=== PATIENT | female | born 1955 | race American Indian/Alaskan Native ===

== ENCOUNTER 2016-08-15 00:18 | Observation (INO) | payer MEDICARE, MEDICAID ==
[2016-08-15 00:26] VITALS: BMI 32.2
--- NOTE | 2016-08-15 00:34 | ED PDOC ---
Arrival/HPI - General Time Seen by Provider: 08/15/16 00:20 Historian: Patient - History of Present Illness Narrative History of Present Illness (Text): 08/15/16 00:33 Aviva Feliciano is a 61 year old female, whose past medical history includes COPD, left lower lobe lung cancer, recurrent SVT, paroxysmal atrial fibrillation , CAD with stent placement, CHF, seizures, and peripheral vascular disease, who presents to the Emergency department brought in by EMS for chest pain today. Patient also reports associated shortness of breath. Patient denies any fever, chills, nausea, vomiting, diarrhea, urinary symptoms, back pain, neck pain, headache, dizziness, or any other complaints. Time/Duration: Other (today) Symptom Onset: Gradual Symptom Course: Unchanged Activities at Onset: Rest, Light Context: Home Past Medical History - Provider Review Nursing Documentation Reviewed: Yes - Infectious Disease Hx of Infectious Diseases: None - Tetanus Immunization Tetanus Immunization: Unknown - Cardiac Hx Cardiac Disorders: Yes Hx Congestive Heart Failure: No Hx Hypertension: Yes - Pulmonary Hx Chronic Obstructive Pulmonary Disease (COPD): Yes - Neurological HX Cerebrovascular Accident: No - HEENT Hx HEENT Disorder: Yes (eyeglasses) Hx Blind: No Hx Cataracts: No Hx Deafness: Yes (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 ear) Hx Epistaxis: No Hx Glaucoma: No Hx Macular Degeneration: No Other/Comment: ringing in ears - Renal Hx Renal Failure: No - Endocrine/Metabolic Hx Diabetes Mellitus Type 1: No Hx Diabetes Mellitus Type 2: No Hx Hypothyroidism: No - Hematological/Oncological Hx Blood Transfusions: Yes Hx Blood Transfusion Reaction: No - Integumentary Hx Dermatological Disorder: No Hx Basal Cell Carcinoma: No Hx Eczema: No Hx Melanoma: No Hx Psoriasis: No Hx Squamous Cell Carcinoma: No - Musculoskeletal/Rheumatological Hx Arthritis: Yes - Gastrointestinal Hx Gastrointestinal Disorders: Yes (gastritis) Hx Colostomy: No Hx Crohn's Disease: No Hx Diverticulitis: No Hx Gall Bladder Disease: Yes Hx Gastroesophageal Reflux: Yes Hx Gastrointestinal Ulcer: No Hx Ileostomy: No Hx Liver Failure: No Hx Pancreatitis: Yes HX Swallowing Problems: No Other/Comment: colonoscopy 02/2016 dx diverticulosis, ascending colon ulceration , colon polyp - Genitourinary/Gynecological Hx Genitourinary Disorders: Yes (cervical,uterine ca) Hx Hematuria: No Hx Incontinence: No Hx Prostate Problems: No Hx Sexually Transmitted Diseases: No Hx Urinary Tract Infection: No Other/Comment: hx fibroids had hyst due to fibroids - Psychiatric Hx Psychophysiologic Disorder: Yes Hx Anxiety: Yes Hx Bipolar Disorder: No Hx Depression: No Hx Emotional Abuse: No Hx Hallucinations: No Hx Panic Disorder: No Hx Post Traumatic Stress Disorder: No Hx Psychosis: No Hx Physical Abuse: No Hx Schizophrenia: No Hx Sexual Abuse: No Hx Substance Use: No - Surgical History Hx Amputation: No Hx Appendectomy: No Hx Cardiac Catheterization: No Hx Cholecystectomy: Yes Hx Gastric Bypass Surgery: No Hx Hysterectomy: Yes Hx Joint Replacement: No Hx Kidney Transplant: No Hx Liver Transplant: No Hx Mastectomy: No Hx Musculoskeletal Surgery: No Hx Open Heart Surgery: No Hx Orthopedic Surgery: No Hx Splenectomy: No Hx Valve Replacement: No Other/Comment: polypectomy, r cw pac - Anesthesia Hx Anesthesia Reactions: No Hx Malignant Hyperthermia: No - Suicidal Assessment Feels Threatened In Home Enviroment: No Family/Social History - Physician Review Nursing Documentation Reviewed: Yes Family/Social History: No Known Family HX Smoking Status: Former Smoker Hx Alcohol Use: No Hx Substance Use: No Hx Substance Use Treatment: No Allergies/Home Meds Allergies/Adverse Reactions: Allergies diallo Allergy (Verified 08/15/16 00:27) RASH Home Medications: Home Meds Medication Instructions Recorded Confirmed Gabapentin 600 mg PO HS 06/22/15 07/09/16 Albuterol HFA [Ventolin HFA 90 0.09 mg IH PRN PRN 09/26/15 07/09/16 mcg/actuation (8 g)] Review of Systems - Physician Review All systems were reviewed & negative as marked: Yes - Review of Systems Constitutional: Normal. absent: Fevers Eyes: Normal ENT: Normal Respiratory: SOB Cardiovascular: Chest Pain Gastrointestinal: Normal. absent: Abdominal Pain, Diarrhea, Nausea, Vomiting Genitourinary Female: Normal. absent: Dysuria, Frequency, Hematuria, Urine Output Changes Musculoskeletal: Normal. absent: Back Pain, Neck Pain Skin: Normal. absent: Rash Neurological: Normal. absent: Headache, Dizziness Endocrine: Normal Hemo/Lymphatic: Normal Psychiatric: Normal Physical Exam Vital Signs Reviewed: Yes Vital Signs Pulse Resp BP Pulse Ox 08/15/16 04:55 117 H 18 133/85 90 L 08/15/16 04:39 133/85 08/15/16 00:39 93 H 22 114/76 92 L Temperature: Afebrile Blood Pressure: Normal Pulse: Regular Respiratory Rate: Normal Appearance: Positive for: Well-Appearing, Non-Toxic, Comfortable Pain Distress: None Mental Status: Positive for: Alert and Oriented X 3 - Systems Exam Head: Present: Atraumatic, Normocephalic Pupils: Present: PERRL Extroacular Muscles: Present: EOMI Conjunctiva: Present: Normal Mouth: Present: Moist Mucous Membranes Neck: Present: Normal Range of Motion Respiratory/Chest: Present: Decreased Breath Sounds (Left-sided decreased breath sounds). No: Respiratory Distress, Accessory Muscle Use Cardiovascular: Present: Regular Rate and Rhythm, Normal S1, S2. No: Murmurs Abdomen: Present: Normal Bowel Sounds. No: Tenderness, Distention, Peritoneal Signs Back: Present: Normal Inspection Upper Extremity: Present: Normal Inspection. No: Cyanosis, Edema Lower Extremity: Present: Normal Inspection. No: Edema Neurological: Present: GCS=15, CN II-XII Intact, Speech Normal Skin: Present: Warm, Dry, Normal Color. No: Rashes Psychiatric: Present: Alert, Oriented x 3, Normal Insight, Normal Concentration Medical Decision Making ED Course and Treatment: 08/15/16 00:33 Impression: 61 year old female complaining of chest pain and shortness of breath tonight. Differential Diagnosis include but are not limited to: ACS vs. CHF vs. COPD vs. pneumonia vs. sepsis Plan: -- EKG -- Chest X-ray -- Labs, cardiac enzymes, BNP, VBG, blood cultures -- Dilaudid -- Reassess and disposition Prior Visits: Notes and results from previous visits were reviewed. On 07/09/2016, pt was seen in the Emergency department for shortness of breath. Pt was admitted to the hospital for further evaluation. Progress Notes: Reviewed EKG, NSR at [address] bpm[address] Non-specific ST/T wave changes. Prolonged QT. 08/15/16 01:27 Reviewed radiology, Chest X-ray shows no infiltrates, no pneumonia. 08/15/16 03:[address] Longoria, covering for Dr. Singh, who is aware and agrees with plan. Pt will go to Telemetry observation for chest pain under Dr. Singh's service. Pt is no acute distress. Discussed results and hospital observation plan with pt , who is aware and verbalizes understanding. - Lab Interpretations Microbiology Results: Microbiology Results 08/15/16 01:40 Blood-Venous Blood Culture - Preliminary NO GROWTH AFTER 48 HOURS 08/15/16 01:20 Blood-Venous Blood Culture - Preliminary NO GROWTH AFTER 48 HOURS Lab Results: 08/15/16 01:20 08/15/16 02:20 Lab Results 08/15/16 02:20: Sodium 137, Potassium 4.1, Chloride 96 L, Carbon Dioxide 33, Anion Gap 12, BUN 20, Creatinine 1.1, Est GFR ( Amer) > 60, Est GFR (Non- Af Amer) 50, Random Glucose 114 H, Calcium 9.4, Total Bilirubin 0.8, AST 21, ALT 15, Alkaline Phosphatase 136 H, Lactate Dehydrogenase 549, Total Creatine Kinase 51, Troponin I < 0.01 D, NT-Pro-B Natriuret Pep 1170 H, Total Protein 7.8, Albumin 4.0, Globulin 3.8, Albumin/Globulin Ratio 1.1 08/15/16 01:20: WBC 5.4 D, RBC 3.95, Hgb 12.5, Hct 36.7, MCV 92.9, MCH 31.6, MCHC 34.1, RDW 13.9, Plt Count 279, MPV 9.8, Gran % 67.4, Lymph % (Auto) 20.7 L , [place] % (Auto) 10.2 H, Eos % (Auto) 1.3 L, Baso % (Auto) 0.4, Gran # 3.62, Lymph # 1.1 L, [place] # 0.6, Eos # 0.1, Baso # 0.02, PT 11.7, INR 1.08, APTT 28.7 , pO2 38, VBG pH 7.34, VBG pCO2 59.0, VBG HCO3 31.8 H, VBG Total CO2 33.6 H, VBG O2 Sat (Calc) 70.6 H, VBG Base Excess 4.3 H, VBG Potassium 8.0 H*, Glucose 104, Lactate 2.3 H, FiO2 21.0, Sodium 135.0, Chloride 104.0, Venous Blood Potassium 8.0 H* I have reviewed the lab results: Yes - RAD Interpretation Radiology Orders: 08/15/16 00:35 CHEST PORTABLE [RAD] Stat Battery Starter: ED Physician - EKG Interpretation Interpreted by ED Physician: Yes Type: 12 lead EKG - Medication Orders Current Medication Orders: Acetaminophen (Tylenol 325mg Tab) 650 mg PO Q4H PRN PRN Reason: Fever >100.5 F Last Admin: 08/17/16 09:58 Dose: 650 MG MAR Pain/Vitals Document 08/17/16 09:58 MICEM (Rec: 08/17/16 09:58 [id number]) Presence of Pain Presence of Pain Yes Pain Scale Used Pain Scale Used Numeric Location Pain Location Body Site Chest Description Intermittent Intensity 3 Re-Assess: MAR Pain/Vitals Document 08/17/16 10:58 MICEM (Rec: 08/17/16 11:27 [id number]) Pain Reassessment Is This A Pain ReAssessment? Yes Presence of Pain Presence of Pain No Albuterol Sulfate (Albuterol 0.083% Inhal Zulay (2.5 Mg/3 Ml) Ud) 2.5 mg IH [id number] PRN PRN Reason: Shortness of Breath Last Admin: 08/16/16 13:16 Dose: 2.5 MG Amiodarone HCl (Cordarone) 200 mg PO DAILY [facility] Last Admin: 08/17/16 15:26 Dose: 200 MG [facility] Pulse and Blood Pressure Document 08/17/16 15:26 MICE (Rec: 08/17/16 15:26 [id number] Pulse Pulse Rate (60-90) 83 Blood Pressure Blood Pressure (100/60-150/90) 105/71 Arformoterol Tartrate (Brovana) 15 mcg IH [id number] [facility] Last Admin: 08/17/16 07:42 Dose: 15 MCG Aspirin (Ecotrin) 81 mg PO DAILY [facility] Last Admin: 08/17/16 09:57 Dose: 81 MG Atenolol (Tenormin) 25 mg PO BID [facility] Last Admin: 08/17/16 17:37 Dose: Not Given Non-Admin Reason: BP Parameters Not Met [facility] Pulse and Blood Pressure Document 08/17/16 17:37 MICEM (Rec: 08/17/16 17:37 [email or web address] Pulse Pulse Rate (60-90) 95 Blood Pressure Blood Pressure (100/60-150/90) 95/63 Azithromycin (Zithromax) 500 mg PO DAILY [facility] PRN Reason: Protocol Last Admin: 08/17/16 09:58 Dose: 500 MG Clopidogrel Bisulfate (Plavix) 75 mg PO DAILY [facility] Last Admin: 08/17/16 09:58 Dose: 75 MG Enoxaparin Sodium (Lovenox) 40 mg SC DAILY [facility] PRN Reason: Protocol Last Admin: 08/17/16 09:57 Dose: 40 MG Protocol for PTT Monitoring Document 08/17/16 09:57 MICE (Rec: 08/17/16 09:58 [id number]) Protocol Protocol for PTT Monitoring Following clinical pathway protocol (regime/therapy) Subcutaneous Administrations Document 08/17/16 09:57 MICE (Rec: 08/17/16 09:58 [id number]) Injection Site MAR Injection Site Right Abdomen Charges for Administration # of Subcutaneous Administrations 1 Famotidine (Pepcid) 20 mg PO 1000,2200 [facility] Last Admin: 08/17/16 09:58 Dose: 20 MG Furosemide (Lasix) 20 mg PO BID [facility] Last Admin: 08/17/16 17:36 Dose: Not Given Non-Admin Reason: BP Parameters Not Met MAR Blood Pressure Document 08/17/16 17:36 MICE (Rec: 08/17/16 17:36 [id number]) Blood Pressure Blood Pressure (100/60-150/90) 95/63 Guaifenesin (Robitussin) 200 mg PO Q6 PRN PRN Reason: Cough and congestion Last Admin: 08/17/16 06:49 Dose: 200 MG Ceftriaxone Sodium (Rocephin 1 Gram Ivpb) 100 mls @ 100 mls/hr IVPB DAILY [facility] PRN Reason: Protocol Last Admin: 08/17/16 09:58 Dose: 100 MLS/HR eMAR Start Stop Document 08/17/16 09:58 MICE (Rec: 08/17/16 09:58 [id number]) Intravenous Solution Start Date 08/17/16 Start Time 09:58 Levetiracetam (Keppra) 500 mg PO BID [facility] Last Admin: 08/17/16 17:35 Dose: 500 MG Methylprednisolone (Solu-Medrol) 40 mg IVP Q12 [facility] Last Admin: 08/17/16 09:58 Dose: 40 MG IVP Administration Document 08/17/16 09:58 MICE (Rec: 08/17/16 09:58 [id number] Charges for Administration # of IVP Administrations 1 Montelukast Sodium (Singulair) 10 mg PO HS [facility] Last Admin: 08/16/16 21:13 Dose: 10 MG Morphine Sulfate (Morphine) 2 mg IVP Q4H PRN PRN Reason: Pain, moderate (4-7) Last Admin: 08/16/16 08:39 Dose: 2 MG [facility] Pain Assessment Document 08/16/16 08:39 JFR (Rec: 08/16/16 08:40 [id number]) Pain Reassessment Is this a pain reassessment? No Sleep Is patient sleeping during reassessment? No Presence of Pain Presence of Pain Yes Pain Scale Used Pain Scale Used Numeric Location Left, Right or Bilateral Left Description Intensity of Pain at present 7 IVP Administration Document 08/16/16 08:39 JFR (Rec: 08/16/16 08:40 [id number]) Charges for Administration # of IVP Administrations 1 Re-Assess: [facility] Pain Assessment Document 08/16/16 09:39 JFR (Rec: 08/16/16 09:55 [id number]) Pain Reassessment Is this a pain reassessment? Yes Sleep Is patient sleeping during reassessment? No Presence of Pain Presence of Pain No Phenytoin Sodium (Dilantin) 100 mg PO BRK [facility] Last Admin: 08/17/16 08:01 Dose: 100 MG Phenytoin Sodium (Dilantin) 200 mg PO [facility] Last Admin: 08/16/16 21:13 Dose: 200 MG Pregabalin (Lyrica) 25 mg PO BID [facility] Last Admin: 08/17/16 17:36 Dose: 25 MG Roflumilast (Daliresp) 500 mcg PO DAILY [facility] Last Admin: 08/17/16 09:57 Dose: 500 MCG Sildenafil Citrate (Revatio) 20 mg PO Q12 [facility] Last Admin: 08/17/16 11:27 Dose: Not Given Non-Admin Reason: BP Parameters Not Met Discontinued Medications Acetaminophen (Tylenol 325mg Tab) 650 mg PO Q4H PRN PRN Reason: Fever >100.5 F Atenolol (Tenormin) 25 mg PO BID [facility] Last Admin: 08/17/16 11:27 Dose: Not Given Non-Admin Reason: BP Parameters Not Met MAR Pulse and Blood Pressure Document 08/17/16 11:27 MICE (Rec: 08/17/16 11:27 [id number]) Pulse Pulse Rate (60-90) 84 Blood Pressure Blood Pressure (100/60-150/90) 92/61 Diltiazem HCl (Cardizem Cd) 120 mg PO DAILY [facility] Last Admin: 08/15/16 09:24 Dose: 120 MG MAR Pulse and Blood Pressure Document 08/15/16 09:24 [facility] (Rec: 08/15/16 09:25 [facility] [id number]) Pulse Pulse Rate (60-90) 108 Blood Pressure Blood Pressure (100/60-150/90) 113/84 Enoxaparin Sodium (Lovenox) 80 mg SC STAT STA PRN Reason: Protocol Stop: 08/15/16 04:04 Last Admin: 08/15/16 04:39 Dose: 80 MG Subcutaneous Administrations Document 08/15/16 04:39 EKEOO (Rec: 08/15/16 04:39 EKEOO [id number]) Injection Site MAR Injection Site Left Abdomen Charges for Administration # of Subcutaneous Administrations 1 Furosemide (Lasix) 20 mg IVP ONCE ONE Stop: 08/15/16 03:36 Last Admin: 08/15/16 04:39 Dose: 20 MG MAR Blood Pressure Document 08/15/16 04:39 EKEOO (Rec: 08/15/16 04:39 EKEOO [id number]) Blood Pressure Blood Pressure (100/60-150/90) 133/85 IVP Administration Document 08/15/16 04:39 EKEOO (Rec: 08/15/16 04:39 EKEOO [id number] ATTEND) Charges for Administration # of IVP Administrations 1 Furosemide (Lasix) 20 mg PO BID [facility] Last Admin: 08/17/16 11:27 Dose: Not Given Non-Admin Reason: BP Parameters Not Met MAR Blood Pressure Document 08/17/16 11:27 MICE (Rec: 08/17/16 11:27 [id number]) Blood Pressure Blood Pressure (100/60-150/90) 92/61 Guaifenesin (Robitussin) 200 mg PO Q6 [facility] Last Admin: 08/16/16 12:50 Dose: 200 MG Hydromorphone HCl (Dilaudid) 2 mg IVP STAT STA Stop: 08/15/16 00:36 Last Admin: 08/15/16 01:26 Dose: 2 MG IVP Administration Document 08/15/16 01:26 EKEOO (Rec: 08/15/16 01:27 EKEOO [id number]) Charges for Administration # of IVP Administrations 1 Hydromorphone HCl (Dilaudid) 2 mg IVP STAT STA Stop: 08/15/16 04:03 Last Admin: 08/15/16 04:40 Dose: IVP Administration Document 08/15/16 04:40 EKEOO (Rec: 08/15/16 04:40 EKEOO [id number] ATTEND) Charges for Administration # of IVP Administrations 1 Methylprednisolone (Solu-Medrol) 30 mg IVP Q12 [facility] Last Admin: 08/15/16 09:20 Dose: 30 MG IVP Administration Document 08/15/16 09:20 [facility] (Rec: 08/15/16 09:20 [facility] [id number]) Charges for Administration # of IVP Administrations 1 Methylprednisolone (Solu-Medrol) 40 mg IVP Q8 [facility] Last Admin: 08/16/16 15:02 Dose: 40 MG IVP Administration Document 08/16/16 15:02 MICEM (Rec: 08/16/16 15:02 MICEM [id number]) Charges for Administration # of IVP Administrations 1 Sildenafil Citrate (Revatio) 20 mg PO TID [facility] Last Admin: 08/15/16 17:48 Dose: 20 MG - Juan Pabloibe Statement The provider has reviewed the documentation as recorded by the Herrera Chicas Provider Attestation: All medical record entries made by the Herrera were at my direction and personally dictated by me. I have reviewed the chart and agree that the record accurately reflects my personal performance of the history, physical exam, medical decision making, and the department course for this patient. I have also personally directed, reviewed, and agree with the discharge instructions and disposition. Disposition/Present on Arrival - Present on Arrival Any Indicators Present on Arrival: No History of DVT/PE: No History of Uncontrolled Diabetes: No Urinary Catheter: No History Surgical Site Infection Following: None - Disposition Have Diagnosis and Disposition been Completed?: Yes Diagnosis: COPD (chronic obstructive pulmonary disease), Chest pain in adult Disposition: HOSPITALIZED Disposition Time: 03:30 Patient Problems: Current Active Problems Problem Status Diagnosed Congestive heart failure (CHF) Acute Anemia Chronic Anemia in chronic illness Chronic Chronic obstructive airway disease with asthma Chronic Dyspnea Chronic Hyperlipidemia Chronic Lung cancer Chronic Paroxysmal atrial fibrillation Chronic Seizure Chronic Abdominal pain Resolved Altered mental status Resolved Atrial fibrillation Resolved Atrial flutter Resolved Chest pain Resolved Dehydration Resolved Hemoptysis Resolved Nausea & vomiting Resolved SVT (supraventricular tachycardia) Resolved COPD exacerbation Ruled-out Condition: GOOD
[2016-08-15] MEDS ORDERED: HYDROmorphone 2 mg/ml ISec IVP STA ×2 (00:35→04:02)
[2016-08-15 01:41] LABS: ADD MANUAL DIFF? NO
[2016-08-15 01:47] LABS: BASO # 0.02 K/mm3 (0.0-2.0); BASO % 0.4 % (0.0-3.0); EOS # 0.1 (0.0-0.7); EOS % 1.3 % (1.5-5.0); GRAN # 3.62 (1.4-6.5); GRAN % 67.4 % (50.0-68.0); HEMATOCRIT 36.7 % (36.0-48.0); LYMPH # 1.1 (1.2-3.4); LYMPH % 20.7 % (22.0-35.0); MEAN CELL VOLUME 92.9 fL (80.0-105.0); MEAN CORPUSCULAR HEMOGLOBIN 31.6 pg (25.0-35.0); MEAN CORPUSCULAR HGB CONC 34.1 g/dl (31.0-37.0); MEAN PLATELET VOLUME 9.8 fl (7.0-11.0); MONO # 0.6 (0.1-0.6); MONO % 10.2 % (1.0-6.0); PLATELET COUNT 279 10^3/uL (120.0-450.0); RED CELL DISTRIBUTION WIDTH 13.9 % (11.5-14.5); WHITE BLOOD COUNT 5.4 10^3/ul (4.5-11.0)
[2016-08-15 01:51] LABS: VENOUS BLOOD GAS BASE EXCESS 4.3 mmol/L (0.0-2.0); VENOUS BLOOD PH 7.34 (7.32-7.43)
[2016-08-15 01:58] LABS: INR 1.08 (0.93-1.08); PARTIAL THROMBOPLASTIN TIME 28.7 Seconds (23.7-30.8)
[2016-08-15 02:43] LABS: ALB/GLOB RATIO 1.1 (1.1-1.8); ALKALINE PHOSPHATASE 136 U/L (38-133); ALT/SGPT 15 U/L (7-56); AST/SGOT 21 U/L (15-39); BILIRUBIN,TOTAL 0.8 mg/dL (0.2-1.3); BLOOD UREA NITROGEN 20 mg/dL (7-21); CALCIUM 9.4 mg/dL (8.4-10.5); CARBON DIOXIDE 33 mmol/L (21-33); CHLORIDE 96 mmol/L (98-107); GFR AFRICAN-AMERICAN > 60; GLUCOSE,RANDOM 114 mg/dL (70-110); POTASSIUM 4.1 mmol/L (3.6-5.0); SODIUM 137 mmol/L (132-148); TOTAL PROTEIN 7.8 g/dL (5.8-8.3)
[2016-08-15 02:56] LABS: TROPONIN I < 0.01 ng/mL
[2016-08-15] MEDS ORDERED: Enoxaparin 80 mg Syringe SC STA (04:03)
[2016-08-15] MEDS ORDERED: Albuterol HFA 90 mcg/actuation (8 g) IH PRN (05:53)
[2016-08-15 07:57] LABS: VENOUS BLOOD GAS BASE EXCESS 6.3 mmol/L (0.0-2.0); VENOUS BLOOD PH 7.38 (7.32-7.43)
[2016-08-15] MEDS: Morphine 2 mg/ml ISec IVP PRN ×2 (08:21→23:50)
[2016-08-15 08:34] LABS: TROPONIN I 0.03 ng/mL
--- NOTE | 2016-08-15 09:18 | HP ---
This is an unfortunate 61-year-old female, seen in the Emergency Room and admitted f or the fourth time this year for similar complaints of chest pain. She has unresectable left lower l obe cancer, adenocarcinoma that was diagnosed in 01/2016. The patient suffers from recurrent paroxysm al atrial fibrillation, recently underwent metal stent placement last month, and has other comorbidit ies that frequently make her visit the Emergency Room. Today, brought in by the emergency medical service, and coexistent shortness of breath. She is on O2 via nasal cannula and has not visited our office since her discharge in July. She is co-managed by Dr. Gomez for her cancer, Dr. Martinez for her respiratory needs, and Dr. Maguire for her extensive cardiac history. The Emergency Room physician reviewed the ongoing history and suggested observation, as this could be a Abundio's syndrome post the insertion of the stent, but because of the florid comorbidities, any visit to the Emergency Room triggers admission. From our understanding, the physical exam showed a c omfortable, nontoxic patient in no obvious pain distress, and the admission triggered by the comorbid ities. The recent recommendations from the consultants at the time of discharge were reviewed by me, and bec jennifere she has not visited our office, we are uncertain of her compliance or any adjustments made by [facility] consultants. MEDICATIONS: Her current medications, as last seen in our office, are atenolol, Eliquis, vitamin D, amiodarone, Dilantin, gabapentin, Singulair, Spiriva, atorvastatin, Brovana, omeprazole, Voltaren gel , ibuprofen, and Keppra. Ventolin and Asmanex had been also in use. In reviewing her discharge medi cines, I am not certain if that is the same as she is on. We will need to confer with Dr. Samantha judge on in the morning. The presenting complaints as noted by the Emergency Room physician was severity of illness enough to warrant EMS transport with comorbid COPD - asthma combined, pulmonary hypertension, ASHD with recent cardiac catheterization and placement of metal stent, comorbid epilepsy, GERD, hyperlipidemia, essent ial hypertension, chronic rhinitis, sleep apnea with pulmonary hypertension, vitamin D deficiency, an d prior nicotine dependence. She has had bouts of SVT and atrial fibrillation, and prior to her diag nosis of adenocarcinoma of the lung, she was admitted for hemoptysis. The patient again was stabilized in the Emergency Room. Cardiac enzymes were reported as negative, a nd the physical exam will be reviewed once the patient is seen. We have initiated her standard medic ations, and will ask for consult with Dr. Maguire and perhaps Dr. Martinez if warranted. Kit Longoria MD cc: [phone] TT: 08/15/2016 09:17:37 jn
[2016-08-15] MEDS: cefTRIAXone 1 gm 100 ML IVPB SCH (09:21)
[2016-08-15] MEDS: Sildenafil 20 MG TAB PO SCH ×3 (09:25→17:48)
--- NOTE | 2016-08-15 09:32 | RAD ---
HISTORY: sob COMPARISON: Comparison is made to the previous study dated 07/13/2016 FINDINGS: LUNGS: Suspicious for [id number] pulmonary vascular congestion. Hazy opacity seen at the lower lobes could be due to atelectasis. PLEURA: Blunting of the left costophrenic angle is again noted. CARDIOVASCULAR: The cardiac silhouette is prominent in size. OSSEOUS STRUCTURES: No significant abnormalities. VISUALIZED UPPER ABDOMEN: Normal. OTHER FINDINGS: Right-sided jugular central line seen in place. IMPRESSION: Interval appearance of reticular opacities in the lungs suspicious for pulmonary vascular congestion. Bibasilar linear opacities may represent atelectasis.
[2016-08-15] MEDS: Arformoterol 15 mcg/2 ml Inh Sol IH SCH ×2 (09:34→19:30)
[2016-08-15] MEDS ORDERED: diltiaZEM 120 mg/24 Hours CD Cap PO SCH (10:00)
[2016-08-15] MEDS ORDERED: MethylPREDNISolone 40 mg Vial IVP SCH (10:00)
--- NOTE | 2016-08-15 10:09 | CARD ---
APPROVED REPORT EKG Measurement Heart [id number] <Conclusion> Normal sinus rhythm Possible Left atrial enlargement NSSTW changes Prolonged QTc No change
--- NOTE | 2016-08-15 10:59 | CT ---
PROCEDURE: CT Chest without contrast HISTORY: left lateral , inspiratory chest pain COMPARISON: Comparison is made to the previous study dated 06/28/2016. TECHNIQUE: Contiguous axial images were obtained through the chest without intravenous contrast enhancement. Sagittal and coronal reconstructions were performed. Radiation dose (DLP): 517.95 mGy-cm. FINDINGS: LUNGS: Severe diffuse emphysematous changes are again seen predominant in the upper lobes. Again seen is 5 millimeter nodule at the right lung upper lobe image 31 series 4. Small opacity seen at lung bases may represent atelectasis. The possibility of pneumonia and infiltrate is not totally excluded especially on the right. Otherwise no significant interval change. MEDIASTINUM: The thoracic aorta is tortuous and ectatic. The heart is moderately enlarged. Main pulmonary artery is mildly to moderately enlarged suggestive of underlying pulmonary hypertension. The main pulmonary artery measures 4.1 centimeter. Stable mild mediastinal lymphadenopathy. PLEURA: No evidence of significant pleural effusion or pneumothorax. BONES: Suspicious for diffuse osteopenia. Moderate degenerative changes in the thoracic spine. UPPER ABDOMEN: Distended stomach is noted. There are foci of slightly low-attenuation lesions in the left and right liver lobe. Correlate clinically for possible metastasis or other etiology. Adrenal glands are mildly enlarged. OTHER FINDINGS: None. IMPRESSION: Bibasilar opacities may represent atelectasis or pleural thickening or infiltrates. The possibility of neoplasm is not totally excluded. No evidence of significant pleural effusion or pneumothorax. 5 millimeter noncalcified nodule at the right lung upper lobe. Severe emphysema. Cardiomegaly. [id number] enlarged main pulmonary artery. At least 2 slightly low-attenuation mass lesions in the liver. Dedicated CT of the liver with contrast is suggested for further assessment. If clinically warranted follow-up PET-CT is suggested.
[2016-08-15 14:03] LABS: TROPONIN I 0.02 ng/mL
--- NOTE | 2016-08-15 15:59 | CON ---
DATE: 08/15/2016 REASON FOR CONSULTATION: Chest pain, left sided, sharp, history of coronary artery disease status post recently bare metal stent in RCA. BRIEF CLINICAL HISTORY: This is a 61-year-old female with past medical history of COPD on home oxygen, SVT, paroxysmal atrial fibrillation, left lower lobe inoperable adenocarcinoma status post radiation, status post chemo, pulmonary hypertension, history of PAD, history of CAD status post recent bare metal stent was placed on 07/15/2016 in the right coronary artery, came in with a complaint of sharp lower chest pain which is atypical. PAST MEDICAL HISTORY: Significant for as mentioned, adenocarcinoma, diagnosed 01/2016, status post chemo, status post radiation, inoperable, history of COPD, history of obstructive sleep apnea, history of paroxysmal atrial fibrillation, history of SVT and pulmonary hypertension. RV systolic pressure on the last echo 12/25/2014 80 mmHg. RECENT CARDIAC WORKUP: As follows: The patient had echocardiography 2016 shows ejection fraction 65-70% on Primacor, dilated RA, RV, LA. Right ventricle severely dilated with systolic function of RV severely reduced, mitral regurg is severe, severe tricuspid regurg, RV systolic pressure 123 with severe pulmonary hypertension dated 07/11/2016. Following this, the patient underwent left and right heart catheterization dated 07/15/2016 that revealed normal LV function ejection fraction of 55%. Left main essentially free of significant disease, bifurcating LAD, circumflex. LAD without any significant disease. Circumflex with diffuse calcification noted toward the vessels of 30- 40%, in the distal circumflex there is stenosis. There is 80-90% stenosis noted in proximal RCA, which was dealt with a bare metal stent was placed. The patient with single-vessel critical disease involving proximal RCA 80-90%, preserved LV function, ejection fraction 65%, EDP was 15-18. Right heart catheterization revealed RA 10-12. RV 60/10, PA 60/27 with a mean PA of 38. Pulmonary capillary wedge pressure was 13. Cardiac output 3.83. Cardiac index 2.95 and pulmonary vascular resistance 6.8 Wood unit consistent with primary pulmonary hypertension. Right heart catheterization was done 12 hours after discontinuing Primacor. Successful PTCA with bare-metal stent of RCA done. Bare metal used because of the short duration dual antiplatelet therapy as the patient has chemo and radiation and may get pancytopenia and may decide to discontinue aspirin and Plavix early, dated 07/15/2016. SOCIAL HISTORY: Hx of tobacco abuse, which she quit after Lung Ca diagnosed, without any history of alcohol abuse. CURRENT MEDICATIONS: The patient is taking Keppra, guaifenesin, Spiriva, sildenafil at a ratio for pulmonary hypertension, phenytoin, gabapentin, clopidogrel, aspirin, Plavix, atorvastatin, atenolol, and amiodarone. REVIEW OF SYSTEMS: As per HPI. PHYSICAL EXAMINATION: VITAL SIGNS: Temperature afebrile, heart rate 94, blood pressure 103/72. HEENT: PERRLA. Extraocular muscles intact. NECK: Supple. No carotid bruits. No thyromegaly. CHEST: Clear to auscultation. HEART: S1, S2 regular. ABDOMEN: Soft. EXTREMITIES: Clubbing and cyanosis negative. DIAGNOSTIC STUDIES: EKG shows normal sinus, acute sinus tachycardia, heart rate 107. First EKG is normal sinus, second EKG is sinus tachycardia with a known history evidence of SVT. LABORATORY DATA: Blood workup as follows: WBC 5.7, hemoglobin 12.5, hematocrit 36.7, platelet count 279. Chemistry shows sodium 130, potassium 4.0 , chloride 96, carbon dioxide 33, anion gap of 12, BUN 20, creatinine 1.1. Troponin 0.01. IMPRESSION: Atypical chest pain, rule out any invasion of the tumor at the chest wall, history of previous SVT, paroxysmal atrial fibrillation with a stent. The patient is in normal sinus, history of coronary artery disease status post percutaneous transluminal coronary angioplasty of right coronary artery proximal with a bare metal stent in 4 weeks. Mitral regurgitation, severe tricuspid regurgitation, severe pulmonary hypertension, primary pulmonary hypertension, PVR 6.8 Wood unit, preserved left ventricular function. RECOMMENDATION: Continue medication baseline including the ratio, continue aspirin and Plavix for 4 weeks. After that, the Plavix can be discontinued. Continue beta parrish. Continue metoprolol. Continue amiodarone. We will follow with you. Follow up CPK, troponin. If CPK, troponin remains negative, patient can be discharged. Discussed with Dr. Gomez. We ordered a PET scan to the invasion of the tumor. We will follow with you. Thank you, , for providing the opportunity in taking care of this patient. Serenity Maguire MD cc: [id number] TT: 08/15/2016 14:57:26 Confirmation # [id number] Dictation # [id number] an 08/15/2016 14:58:36 [id number]
[2016-08-15] MEDS: Albuterol 0.083% Inhal Sol (2.5 mg/3 mL) UD IH PRN (19:30)
--- NOTE | 2016-08-15 23:35 | CON ---
DATE: 08/15/2016 REFERRING PHYSICIAN: Dr. Keith REASON FOR CONSULT: Chest pain, shortness of breath and cough. HISTORY OF PRESENT ILLNESS: This is a 61-year-old female, with unresectable lung cancer, been on rad iation and chemotherapy, Also has history of obstructive lung disease, obstructive sleep apnea syndr ome, paroxysmal atrial fibrillation, severe pulmonary hypertension, recently had a coronary stent kae cement. Comes in with chest pain, shortness of breath, cough, sputum production. No hemoptysis, no hematemesis, no hematuria, no diarrhea reported. PAST MEDICAL HISTORY: As per history of present illness. SOCIAL HISTORY: Recently stopped smoking. Denied any alcohol use. ALLERGIES: Allergic to no medications. She is allergic to diallo, though. FAMILY HISTORY: Positive for cardiovascular disease. MEDICATIONS: She is on albuterol/Atrovent nebulizer q. 6 hours p.r.n., Brovana 50 mcg inhaled twice a day, Cardizem CD 120 mg daily, amiodarone 200 mg daily, Dilantin 100 mg daily, and also 200 mg at b edtime, Ecotrin 81 mg daily, Keppra 500 mg twice a day, Lasix 20 mg twice a day, morphine 2 mg q. 4 h ours p.r.n., Pepcid 20 mg twice a day, Plavix 75 mg daily, Revatio 20 mg 3 times a day, Rocephin 1 g daily, Solu-Medrol 20 mg q. 12 hours, Tenormin 25 mg twice a day, Tylenol on a p.r.n. basis, Zithroma x 500 mg daily. REVIEW OF SYSTEMS: No headache, no rhinitis. Cough, shortness of breath, sputum production, chest p ain. No nausea, no vomiting, no leg pain or leg swelling. Has some chest pain. PHYSICAL EXAMINATION: GENERAL: Sitting up in a bed with mild distress secondary to shortness of breath and chest pain. VITAL SIGNS: Temperature is 98, heart rate is 91, respiratory rate is 22, blood pressure 88/62, puls e ox 93% on Venturi mask. HEENT: Moist mucous membranes. Crowded airway. Mallampati score is 4. NECK: Supple. No JVD. LUNGS: She has crackles at the bases with expiratory wheezing. HEART: S1, S2. ABDOMEN: Soft, nontender. No organomegaly. EXTREMITIES: Not much edema. NEUROLOGIC: Awake, alert, follows simple commands. LABORATORY DATA: Shows hemoglobin 12.5, hematocrit 36.7, WBC 5.4, platelet count is 279. INR 1.08, PTT 29. Has a VBG done on admission that shows a pH 7.38, pCO2 of 56, O2 was 70. Sodium 137, potass ium 4.1, chloride 96, bicarbonate 33, BUN 20, creatinine 1.1, glucose 114, calcium 9.4, AST 21, ALT 1 5, alkaline phosphatase is 136. Troponin less than 0.01. ProBNP 1170. Albumin 4.0, procalcitonin 0 .05. TSH 3.14. MICROBIOLOGY: Blood culture have been negative. She had a CAT scan of her chest done early this [facility], which shows a basilar opacity, no significant pleural effusions, 5 mm noncalcified nodule in th e right lung appears upper lobe, severe emphysema, enlarged pulmonary arteries. IMPRESSION AND PLAN: Severe pulmonary hypertension, chronic obstructive lung disease, unresectable l flash cancer, been on radiation and chemotherapy, history of mediastinal adenopathy, seizure disorder, atrial fibrillation, coronary artery disease, history of coronary stent, agree with the present manag ement. We will increase Solu-Medrol. Continue inhaled bronchodilator, add prednisone, Lyrica 25 mg twice a day. We will decrease Revatio to 20 mg q. 12 hours. If persistently low blood pressure, we will need to discontinue it. Also placed her on CPAP, 7 cm, with 35% oxygen while sleeping. Pain m anagement. Thank you, and we will follow with you. Serenity Martinez MD cc: [id number] TT: 08/15/2016 23:34:19 Confirmation # [id number] Dictation # [id number] ln
[2016-08-16] MEDS: MethylPREDNISolone 40 mg Vial IVP SCH ×4 (00:06→21:14)
[2016-08-16] MEDS: Sildenafil 20 MG TAB PO SCH ×3 (00:17→21:13)
[2016-08-16] MEDS: Arformoterol 15 mcg/2 ml Inh Sol IH SCH ×2 (08:12→19:28)
[2016-08-16] MEDS: Morphine 2 mg/ml ISec IVP PRN (08:39)
--- NOTE | 2016-08-16 10:16 | PN ---
DATE: 08/16/2016 REASON FOR CONSULTATION AND FOLLOWUP: Chest pain/left-sided lower rib, history of coronary artery di sease status post recently bare metal stent in RCA 4 weeks ago. BRIEF CLINICAL HISTORY: This is a 61-year-old female with past medical history significant for COPD, on home oxygen; SVT, paroxysmal atrial fibrillation, mitral and tricuspid regurgitation; inoperable adenocarcinoma of the lung, status post radiation, status post chemo; pulmonary hypertension, status post cardiac catheterization and angioplasty of right coronary artery 4 weeks ago with a bare metal s tent. Admitted with left lower chest pain which is atypical. So far no evidence of acute myocardial infarction. Cardiac catheterization revealed pulmonary hypertension, PA pressure of 60/____ with me an PA of 38, pulmonary capillary wedge pressure 13, pulmonary vascular resistance (PVR) 6.8 Wood uni ts consistent with primary pulmonary hypertension. PHYSICAL EXAMINATION: VITAL SIGNS: Temperature afebrile, heart rate ____, blood pressure 92/61. HEENT: PERRLA. Extraocular muscles intact. NECK: Supple. No carotid bruits. No thyromegaly. CHEST: Clear to auscultation. HEART: S1, S2 regular. ABDOMEN: Soft. EXTREMITIES: Clubbing and cyanosis negative. BLOOD WORKUP: WBC 5.4, hemoglobin 12.5, hematocrit 36.7, platelet count 279. Chemistry shows sodium 137, potassium 4.____, chloride 96, carbon dioxide 33, anion gap of 12, BUN 20, creatinine 1.1. Tro ponin 0.01, 0.03 and 0.02. IMPRESSION: No evidence of acute coronary syndrome, no evidence of unstable angina, status post perc utaneous transluminal coronary angioplasty of right coronary artery with a bare mental stent on 07/15, four weeks ago. Bare metal was done because patient has inoperable lung cancer, on chemothera py and radiation. At one point, patient may need to stop dual antiplatelet therapy, sooner than late r. The patient had a cardiac catheterization that revealed a PA pressure 60/____, mean PA was 38, an d pulmonary vascular resistance 6.8 Wood's unit. Chronic obstructive pulmonary disease, obstructive sleep apnea; mitral regurgitation, tricuspid regurgitation, preserved left ventricular function, ejec tion fraction 65%; history of tobacco abuse in the past, supraventricular tachycardia, paroxysmal atr ial fibrillation; peripheral arterial disease, status post angioplasty of left femoropopliteal trunk 2 years ago. Repeat ELVIS within normal limits. RECOMMENDATION: For now, continue aspirin and Plavix, but Plavix can be held after 4 weeks is comple wilbert if at any point patient needs to stop for procedure or becomes thrombocytopenic during the chemo. No evidence of acute myocardial infarction. Continue amiodarone. Continue Revatio as blood pressu res tolerate. Continue atenolol. We will discontinue Cardizem because of the low blood pressure. D iscussed with Dr. Singh. Discussed with Dr. Gomez. Since the pain is atypical, suggest to do t he PET scan as an outpatient to see the tumor invasion and infiltrate into the chest wall. Because c hest pain is atypical and the patient said that he cannot tolerate the chest pain, so sharp at the lo wer rib cage, needs to rule out tumor invasion of the chest wall. Will continue DVT prophylaxis. Po ssible discharge today if remains stable blood pressure-feng. Discussed with Dr. Singh. Thank you, Dr. Singh, for providing the opportunity in taking care of the patient. Serenity Maguire MD cc: [id number] TT: 08/16/2016 10:03:04 Confirmation # [id number] Dictation # [id number] mn 08/16/2016 09:15:31
--- NOTE | 2016-08-16 10:36 | PN ---
DATE: 08/16/2016 The patient was admitted for left lateral chest pain, increase of productive cough of yellow sputum. She was treated for exacerbation of COPD. She is feeling better. Her pain slightly improved. She continues with productive cough. PHYSICAL EXAMINATION: VITAL SIGNS: Stable. Temperature 98, pulse 69, regular, blood pressure 92/61, respiratory rate 20, her oxygen saturation is running in lower 90s. GENERAL: She is comfortable in bed, alert, awake, oriented. HEENT: Head is normocephalic, atraumatic. Oral mucosa is moist. NECK: Supple. No JVD. LUNGS: With decreased breath sounds. No rhonchi, rales or crackles. HEART: With regular rhythm, rate of 70 per minute. ABDOMEN: Soft, nontender, nondistended. EXTREMITIES: With no edema. DIAGNOSTIC STUDIES: This morning, troponin 3 sets are negative. Her procalcitonin is negative. Her CRP is elevated at 5.4. Her CT scan without contrast showed cardiomegaly with enlarged main pulmonary artery and bilateral base atelectasis, no significant pleural effusion, no significant infiltrations. There are small liver lesions noted again, same compared to PET scan done a couple months earlier. ASSESSMENT: 1. Exacerbation of chronic obstructive pulmonary disease. 2. Left chest pain, probably pleuritic or muscular etiology. 3. Pulmonary hypertension. 4. History of left lower lung cancer, status post chemotherapy and radiation therapy, improved on PET scan in May. PLAN: The patient will be maintained on increase of Solu-Medrol dose. The patient will be maintained on Rocephin IV and Zithromax. Encouraged to use spirometer. Pain management with Percocet and Tylenol as needed. Keira Keith MD cc: [id number] TT: 08/16/2016 10:35:14 Confirmation # [id number] Dictation # [id number] en MTDD
[2016-08-16] MEDS: cefTRIAXone 1 gm 100 ML IVPB SCH (10:56)
[2016-08-16] MEDS: Enoxaparin 40 mg Syringe SC SCH (10:59)
--- NOTE | 2016-08-16 11:39 | RAD ---
HISTORY: left pleuritic pain, COPD exacerbation COMPARISON: 08/15/2016 TECHNIQUE: Chest PA and lateral FINDINGS: The right IJV line terminates at the cavoatrial junction. LUNGS: There is interval improved aeration in both lungs. There is pulmonary hyperinflation and peribronchial thickening with chronic changes in both lungs. There is no focal consolidation. PLEURA: No significant pleural effusion identified. No pneumothorax apparent. CARDIOVASCULAR: The cardiomediastinal silhouette is normal. OSSEOUS STRUCTURES: No significant abnormalities. VISUALIZED UPPER ABDOMEN: Normal. OTHER FINDINGS: None. IMPRESSION: No active pulmonary disease. COPD.
[2016-08-16] MEDS ORDERED: guaiFENesin 200 mg/10 ml Syrup UD PO SCH (12:00)
[2016-08-16] MEDS: Albuterol 0.083% Inhal Sol (2.5 mg/3 mL) UD IH PRN (13:16)
--- NOTE | 2016-08-16 20:01 | PN ---
DATE: 08/16/2016 REFERRING PHYSICIAN: Dr. Keith. SUBJECTIVELY: She feels much better today. Decreased cough, decreased shortness of breath. No naus ea, no vomiting, no diarrhea. No leg pain or leg swelling. No more chest pain. OBJECTIVELY: No acute distress. Temp is 98, heart rate is 56, respiratory rate is 20, blood pressure 93/61, pulse ox 97% on Venturi m ask. HENT: Moist mucous membranes. Crowded airway. Mallampati score is 4. NECK: Supple. No JVD. LUNGS: Has a prolonged expiratory phase with scattered rhonchi. HEART: S1 and S2. ABDOMEN: Soft, nontender. No organomegaly. EXTREMITIES: There is not much edema. NEUROLOGICALLY: Awake, alert. Follows simple commands. MEDICATIONS: She is on albuterol/Atrovent nebulizer q. 6 hours p.r.n., Brovana 15 mcg inhaled twice a day, amiodarone 200 mg daily, Daliresp 500 mcg daily, Dilantin 100 mg in the morning and 200 mg at bedtime, Ecotrin 81 mg daily, Keppra 500 mg twice a day, Lasix 20 mg twice a day, Lovenox 40 mg subQ daily, Lyrica 5 mg twice a day, morphine 2 mg q. 4 hours p.r.n., Pepcid 20 mg twice a day, Plavix 75 mg daily, Revatio 20 mg q. 12 hours, Robitussin 20 mg q. 6 hours p.r.n., Rocephin 1 g IV daily, Singu lair 10 mg daily, Solu-Medrol 40 mg q. 8 hours, Tenormin 25 mg twice a day, Tylenol on a p.r.n. basis , Zithromax 500 mg daily. LABORATORY DATA: Shows no new lab is available since yesterday. Microbiology: Blood cultures have been negative. Chest x-ray done today shows no evidence of pulmonary disease, other than COPD, on chest x-ray at [facility]. IMPRESSION AND PLAN: Severe pulmonary hypertension, chronic obstructive lung disease, unresectable l flash cancer. Been on radiation and chemotherapy. Seizure disorder, atrial fibrillation, coronary art dalia disease, history of coronary stent. Pulmonary point of view, she is doing much better. Will decrease Solu-Medrol to 40 q. 12 hours, cont inue antibiotics. Gastric prophylaxis, DVT prophylaxis. Encourage CPAP use at nighttime. Thank you, and will follow with you. Serenity Martinez MD cc: [id number] TT: 08/16/2016 20:01:27 Confirmation # [id number] Dictation # [id number] dio
[2016-08-16] MEDS: guaiFENesin 200 mg/10 ml Syrup UD PO PRN (23:29)
[2016-08-17] MEDS: guaiFENesin 200 mg/10 ml Syrup UD PO PRN ×2 (06:49→21:25)
[2016-08-17 07:23] LABS: HEMATOCRIT 32.4 % (36.0-48.0); MEAN CELL VOLUME 92.8 fL (80.0-105.0); MEAN CORPUSCULAR HEMOGLOBIN 30.9 pg (25.0-35.0); MEAN CORPUSCULAR HGB CONC 33.3 g/dl (31.0-37.0); MEAN PLATELET VOLUME 9.7 fl (7.0-11.0); RED CELL DISTRIBUTION WIDTH 13.9 % (11.5-14.5); WHITE BLOOD COUNT 6.9 10^3/ul (4.5-11.0)
[2016-08-17 07:41] LABS: ALB/GLOB RATIO 1.1 (1.1-1.8); ALKALINE PHOSPHATASE 104 U/L (38-133); ALT/SGPT 7 U/L (7-56); AST/SGOT 22 U/L (15-39); BILIRUBIN,TOTAL 0.4 mg/dL (0.2-1.3); BLOOD UREA NITROGEN 24 mg/dL (7-21); CALCIUM 9.2 mg/dL (8.4-10.5); CARBON DIOXIDE 30 mmol/L (21-33); CHLORIDE 99 mmol/L (98-107); GFR AFRICAN-AMERICAN > 60; GLUCOSE,RANDOM 112 mg/dL (70-110); POTASSIUM 4.4 mmol/L (3.6-5.0); SODIUM 136 mmol/L (132-148)
[2016-08-17] MEDS: Arformoterol 15 mcg/2 ml Inh Sol IH SCH ×2 (07:42→20:30)
[2016-08-17] MEDS: Enoxaparin 40 mg Syringe SC SCH (09:57)
[2016-08-17] MEDS: cefTRIAXone 1 gm 100 ML IVPB SCH (09:58)
[2016-08-17] MEDS: MethylPREDNISolone 40 mg Vial IVP SCH ×2 (09:58→21:25)
[2016-08-17] MEDS: Sildenafil 20 MG TAB PO SCH ×2 (11:27→21:28)
--- NOTE | 2016-08-17 16:00 | PN ---
DATE: 08/17/2016 I was asked to evaluate the patient, as covering for Dr. Maguire, because of hypertension, and whether t o hold some medications or not. The patient is a 61-year-old female who has a history of coronary artery stenting wi th bare metal stent on 07/17/2015. The patient also is known to have left lower lobe inoperable marty ocarcinoma which was treated with radiation and chemotherapy. She presented because of bilateral lat eral chest pain. The patient also has a history of SVT, and is on amiodarone, Cardizem, and atenolol therapy, and is currently on only amiodarone and Cardizem. The patient was observed in telemetry, NV was ruled out, and was transferred to the 5th floor. The p atient, at this time, is experiencing productive cough with slightly-tinged blood. She denies any di zziness or imbalanced gait. No postural dizziness is noted. VITAL SIGNS: Blood pressure, most recent one report to me is 85/51. Repeat systolic blood pressure was 95 at the time of dictating this note. Heart rate 84, temperature 98.3, respirations 20. HENT: Pale conjunctivae. CHEST: Bibasilar rhonchi. HEART: S1, S2 regular. EXTREMITIES: No edema. LABORATORIES: Hemoglobin and hematocrit 10.8 and 32.4, white count and platelet count are within nor mal limits. SMA-7 is within normal limits except for glucose 112 and BUN of 24. ASSESSMENT: 1. Operable adenocarcinoma of the left lower lobe. 2. Coronary artery disease status post recent right coronary stenting to the right coronary artery wi th a bare metal stent. 3. Pulmonary hypertension. 4. Borderline hypertension. RECOMMENDATIONS: Continue amiodarone 200 mg once a day. Hold atenolol and Lasix if the systolic blo od pressure is below 110. I would request venous Doppler of lower extremities. May hold subcutaneou s Lovenox if stephen hemoptysis develops. Benjamin Kenney MD cc: [id number] TT: 08/17/2016 15:59:27 Confirmation # [id number] Dictation # [id number] jn
--- NOTE | 2016-08-17 20:29 | PN ---
DATE: 08/17/2016 REFERRING PHYSICIAN: Dr. Keith. SUBJECTIVELY: The patient is sitting side of the bed having lunch. Feels much better. Decreased co ugh and shortness of breath. No nausea, no vomiting, no diarrhea, no leg pain, or leg swelling. OBJECTIVELY: No acute distress. Temp is 98, heart rate is 95, respiratory rate is 20, blood pressure 95/63, pulse ox 97% on nasal can nula. HENT: Moist mucous membranes. Crowded airway. Mallampati score is 4. NECK: Supple. No JVD. LUNGS: Has a few crackles at the bases. Prolonged expiratory phase. HEART: S1 and S2. ABDOMEN: Soft, nontender. No organomegaly. EXTREMITIES: There is no edema. NEUROLOGICALLY: Awake, alert. Follows simple command. MEDICATIONS: She is on albuterol/Atrovent nebulizer q. 6 hours p.r.n., Brovana 15 mcg inhaled twice a day, amiodarone 200 mg daily, Daliresp 500 mcg daily, Dilantin 100 mg in the morning, 200 mg in the afternoon. Ecotrin 81 mg daily, Keppra 500 mg twice a day, Lasix 20 mg twice a day, Lovenox 40 mg s ubQ daily, Lyrica 25 mg twice a day, Pepcid 20 mg twice a day, Plavix 75 mg daily, Revatio 20 mg twic e daily, Robitussin 200 mg q. 6 hours p.r.n., Rocephin 1 g IV daily, Singulair 10 mg daily, Solu-Medr ol 40 mg q. 12 hours, Tenormin 25 mg twice a day, Tylenol p.r.n. basis, Zithromax 500 mg daily. LABORATORY DATA: Shows hemoglobin 10.8, hematocrit 32.4, WBC 6.9, platelet is 259. Sodium 136, pota ssium 4.4, chloride 99, bicarbonate 30, BUN 24, creatinine 0.9, glucose 112, calcium is 9.2. AST 22, ALT 7, alk phos is 104. LDH is 510. Albumin is 3.7. TSH 3.14. IMPRESSION AND PLAN: Severe pulmonary hypertension, chronic obstructive lung disease. Unresectable lung cancer, been on chemoradiation therapy. Seizure disorder, atrial fibrillation, coronary artery disease, history of coronary stent. Pulmonary point of view slowly improving. Will continue to encourage BiPAP, keep head 45 degree, tit rate FIO2 to pulse ox 90. IV and inhaled bronchodilator, antibiotics. Agree with discontinuing vas odilated. Continue Revatio with the lower dose. If heart rate under control may discontinue Tenormi n. She is already on amiodarone for heart rate control. Encourage BiPAP use. Thank you, and will follow with you. Serenity Martinez MD cc: [id number] TT: 08/17/2016 20:29:01 Confirmation # [id number] Dictation # [id number] jn
[2016-08-17] MEDS: Morphine 2 mg/ml ISec IVP PRN (21:25)
[2016-08-18] MEDS: Arformoterol 15 mcg/2 ml Inh Sol IH SCH ×2 (07:51→18:59)
[2016-08-18] MEDS: Sildenafil 20 MG TAB PO SCH ×2 (09:46→21:41)
[2016-08-18] MEDS: Enoxaparin 40 mg Syringe SC SCH (09:47)
[2016-08-18] MEDS: cefTRIAXone 1 gm 100 ML IVPB SCH (09:48)
[2016-08-18] MEDS: MethylPREDNISolone 40 mg Vial IVP SCH (09:48)
--- NOTE | 2016-08-18 12:00 | US ---
HISTORY: Leg pain and swelling. Evaluate for DVT PHYSICIAN(S): Clement Feliciano MD. TECHNIQUE: Duplex sonography and color-flow Doppler with graded compression were used to evaluate the deep venous systems of both lower extremities. FINDINGS: The visualized deep venous systems of both lower extremities are sonographically normal and compressible. Normal wave forms and augmentation are seen. There is no sonographic evidence for deep venous thrombosis in the visualized segments of both lower extremities. IMPRESSION: No sonographic evidence for deep venous thrombosis in the visualized segments of both lower extremities.
[2016-08-18] MEDS: guaiFENesin 200 mg/10 ml Syrup UD PO PRN (15:12)
[2016-08-18] MEDS: Morphine 2 mg/ml ISec IVP PRN (16:13)
[2016-08-18] MEDS ORDERED: MethylPREDNISolone 40 mg Vial IVP SCH (16:26)
--- NOTE | 2016-08-18 17:03 | PN ---
DATE: 08/18/2016 REFERRING PHYSICIAN: Dr. Singh SUBJECTIVE: She is sitting side of the bed, feels much better. Decreased cough, decreased shortness of breath. No nausea, no vomiting, no diarrhea, no leg pain or leg swelling. Tolerated BiPAP well. OBJECTIVE: GENERAL: No acute distress. VITAL SIGNS: Temp is 98, heart rate is 72, respiratory rate is 18, blood pressure 98/65, pulse ox 10 0% on 3 liters nasal cannula. HEENT: Moist mucous membranes. Crowded airway. Mallampati score is 4. NECK: Supple. No JVD. LUNGS: Have a few crackles on the left base. HEART: S1 and S2. ABDOMEN: Soft, nontender. No organomegaly. EXTREMITIES: There is no edema. NEUROLOGIC: Awake, alert, follows simple commands. MEDICATIONS: She is on albuterol-Atrovent nebulizer q. 6 hours, Brovana 15 mcg inhaled twice a day, amiodarone 200 mg daily, Daliresp 500 mcg daily, Dilantin 100 mg in the morning and 200 mg afternoon, Ecotrin 81 mg daily, Keppra 500 mg twice a day, Lasix 20 mg twice a day, Lovenox 40 mg daily, Lyrica 25 mg twice a day, morphine 2 mg q. 4 hours p.r.n., Pepcid 20 mg twice a day, Plavix 75 mg daily, Re vatio 20 mg twice a day, Robitussin p.r.n. basis, Rocephin 1 gram daily, Singulair 10 mg daily, Solu- Medrol 40 mg q. 12 hours, Tenormin 25 mg twice a day, Tylenol p.r.n. basis, Zithromax 500 mg daily. LABORATORY DATA: Reviewed. Shows no new lab is available since yesterday. Had extremity ultrasound done yesterday, which showed no evidence of DVT in the visualized segment of lower extremity. IMPRESSION AND PLAN: Severe pulmonary hypertension, chronic obstructive lung disease, unresectable l flash cancer, been on chemotherapy, had radiation therapy, seizure disorder, atrial fibrillation, coron julia artery disease, history of coronary stent, sleep apnea syndrome. Will decrease her Solu-Medrol t o 20 mg twice a day. Continue BiPAP while sleeping. Continue inhaled bronchodilators, anticoagulati on, pulmonary vasodilators, physical therapy. Thank you and we will follow with you. Serenity Martinez MD cc: [id number] TT: 08/18/2016 17:03:03 Confirmation # [id number] Dictation # [id number] en
[2016-08-18 17:41] LABS: ALB/GLOB RATIO 1.1 (1.1-1.8); ALKALINE PHOSPHATASE 93 U/L (38-133); ALT/SGPT 15 U/L (7-56); AST/SGOT 21 U/L (15-39); BILIRUBIN,TOTAL 0.4 mg/dL (0.2-1.3); BLOOD UREA NITROGEN 25 mg/dL (7-21); CALCIUM 9.4 mg/dL (8.4-10.5); CARBON DIOXIDE 31 mmol/L (21-33); CHLORIDE 97 mmol/L (98-107); GFR AFRICAN-AMERICAN > 60; GLUCOSE,RANDOM 145 mg/dL (70-110); SODIUM 138 mmol/L (132-148); TOTAL PROTEIN 7.2 g/dL (5.8-8.3)
--- NOTE | 2016-08-19 00:56 | PN ---
DATE: 08/17/2016 This is a 61-year-old -[place] female being followed by us for left lateral chest pain that h as been aggravated with her coughing and followed with sputum production. She is feeling somewhat be tter and continues to question as to why the pain does not go away. She is aware that the side of th e cancer is on the left side, although the latest PET scan showed reduction in the size of the mass. Her main concern is perhaps there is something that can be done for that. She has been under the ca re of Dr. Gomez for the cancer. Her pulmonary status is managed with the assistance of Dr. Martinez who is managing her sleep apnea and, as the patient has been in the hospital, he has been able to enf orce the need and requirement for her BiPAP in the evenings and she has received some improvement. S he is in good spirits on Friday morning and not quite ready to go home yet because of the comorbidi ties of pulmonary hypertension and coronary artery disease. She underwent serial cardiac enzymes and , on our arrival, she had no immediate complaints and was very cooperative with the exam. She had no temperature spikes the day before. PHYSICAL EXAMINATION: VITAL SIGNS: Temperature 98.3, pulse rate is 76, a blood pressure of 101/58 and continuing to remain low, so some of her antihypertensive course has been adjusted or drugs withheld by the very observan t RN, respiratory rate is 20, O2 sat is in the high 90s. Occasionally her expectoration has a pink t yanci as she notices, but overall she has not seen any red specks that she had initially. HEENT: Pupils are equally round and reactive to light and accommodation. Extraocular movement is in tact. Oral mucosa is moist, no thrush, no other sign of opportunistic infection in the mouth. NECK: Supple, no cervical lymphadenopathy. LUNGS: Very clear with no wheeze, no rhonchi, no appreciable areas of dullness to palpation. HEART: Regular in rhythm. No S3 appreciated. She had bouts of atrial fibrillation in the past and rhythm seems to be well controlled with the present course of therapy. ABDOMEN: Soft, bowel sounds present. No palpable mass. EXTREMITIES: Have no superficial variates, no palpable cords, no Fernie's, no edema. LABORATORY DATA: Morning labs showed a stable H and H of 10.8 and 32.4 with a random glucose of 112 probably related to her steroids. Not certain when the methylprednisolone was initiated, but she is continued on 40 mg at the moment twice a day. Because of the low blood pressure, sildenafil was held and she remains on IV Rocephin and inhaled arformoterol. The atenolol was withheld on two locations and she was placed on enoxaparin rather than her Eliquis. Again, the low blood pressure has origina wilbert a hold on her furosemide. IMPRESSION: 1. Recurrent left lateral chest pain, chronic bronchitis, exacerbation of chronic obstructive pulmon julia disease. 2. Pulmonary hypertension. 3. Left lower lung adenocarcinoma with recent chemo and radiation therapy. PLAN OF CARE: Maintain on present IV antibiotics. Waiting for reevaluation from ID and continue in pain management. Encouraged the patient to use incentive spirometry and we will wait for further cris nges from Dr. Martinez as he decreases the Solu-Medrol. Kit Longoria MD cc: [id number] TT: 08/19/2016 00:56:13 Confirmation # [id number] Dictation # [id number] simran
[2016-08-19] MEDS: guaiFENesin 200 mg/10 ml Syrup UD PO PRN (03:26)
[2016-08-19] MEDS: Morphine 2 mg/ml ISec IVP PRN (03:26)
[2016-08-19 07:09] LABS: ALKALINE PHOSPHATASE 89 U/L (38-133); ALT/SGPT 16 U/L (7-56); AST/SGOT 42 U/L (15-39); BILIRUBIN,TOTAL 0.4 mg/dL (0.2-1.3); BLOOD UREA NITROGEN 21 mg/dL (7-21); CALCIUM 9.1 mg/dL (8.4-10.5); CARBON DIOXIDE 33 mmol/L (21-33); CHLORIDE 97 mmol/L (95-110); GFR AFRICAN-AMERICAN > 60; GLUCOSE,RANDOM 96 mg/dL (70-110); POTASSIUM 5.4 mmol/L (3.6-5.0); SODIUM 138 mmol/L (132-148)
[2016-08-19 07:12] LABS: HEMATOCRIT 34.7 % (36.0-48.0); MEAN CELL VOLUME 94.6 fL (80.0-105.0); MEAN CORPUSCULAR HEMOGLOBIN 30.5 pg (25.0-35.0); MEAN CORPUSCULAR HGB CONC 32.3 g/dl (31.0-37.0); MEAN PLATELET VOLUME 9.8 fl (7.0-11.0); RED CELL DISTRIBUTION WIDTH 13.7 % (11.5-14.5); WHITE BLOOD COUNT 4.8 10^3/ul (4.5-11.0)
--- NOTE | 2016-08-19 07:37 | PN ---
DATE: 08/18/2016 This is a 61-year-old patient of Dr. Singh's admitted for chest pain, recurrent, this being the fo urth admission this year for this unfortunate cancer patient. She is feeling better than when on adm ission and has improved breathing. Her cough continues to be productive and concerning to her as she occasionally sees some pink color on the sputum. So far, no diarrhea. She is continuing under the guidance of Dr. Martinez with daily BiPAP that seem to improve and she is only complaining today of inc reased sputum after nights. We tell her that this perhaps is the intention of the BiPAP so that she does not pool her secretions. She has continued pain and does require pain management once a day. T harjinder, on arrival, we still do not see her getting up out of bed much, but she is comfortable and is n ot using accessory respiratory muscles at all. Comorbidity, she has pulmonary hypertension, adenocar cinoma, inoperable, involving the left lower lobe, coronary artery disease and pulmonary hypertension . She has been appropriately placed on new course of therapy and hopefully will soon be ready for di psychiatric. No temperature spikes. The only concerns of the staff today were of the continued bradycar pepper and hypotension that often make them hold her medicines. Yesterday, we asked for a review by the doctor covering for Dr. Maguire and Dr. Kenney reviewed the patient and suggested a venous ultrasoun d be done, perhaps in hopes of discontinuing her anticoagulation with Lovenox. Dr. Martinez's note was also appreciated and agreed, and he certainly has helped the patient recuperate by reassuring her th is is a normal time post her treatments. Today, we had a long discussion with the patient regarding sometimes the effects of radiotherapy and cause of her pain may have some relation to the effects of radiotherapy. Again, comfortable this morning with only the concerns of the pain that just does not go away. PHYSICAL EXAMINATION: On rounds this morning: VITAL SIGNS: Temperature 98.3, pulse rate 76, blood pressure 101/58, respiratory rate of 20 with an O2 sat of 100%. GENERAL: She is comfortable on room air and has excellent appetite. HEENT: Pupils are equally round and reactive to light and accommodation. Extraocular movement is in tact. The conjunctivae remain pink. NECK: Supple, no cervical lymphadenopathy, no bruit. LUNGS: Clear to auscultation and percussion. She has not had wheeze these past 2 days. We are very impressed. HEART: Regular in rhythm. No S3 appreciated. Cardiac enzymes had been negative. GASTROINTESTINAL: She had no complaints of diarrhea, remains on azithromycin and Rocephin. Abdomen is relatively soft. IMPRESSION: 1. Recurrent left intercostal pain with history of lung adenocarcinoma that is inoperable. 2. Chronic obstructive pulmonary disease. 3. History of atrial fibrillation. 4. Coronary artery disease. 5. Pulmonary hypertension. 6. Sleep apnea. PLAN OF CARE: As directed by Dr. Martinez. Hopefully, we will be able to discontinue the IV steroids soon and switch to oral and begin planning for home discharge. Kit Longoria MD cc: 73 TT: 08/19/2016 07:36:45 Confirmation # [id number] Dictation # [id number] en
[2016-08-19] MEDS: Arformoterol 15 mcg/2 ml Inh Sol IH SCH (08:24)
[2016-08-19] MEDS: Sildenafil 20 MG TAB PO SCH (10:41)
--- NOTE | 2016-08-19 12:13 | PN ---
DATE: 08/19/2016 The patient is in room 569, bed 1. REASON FOR CONSULTATION AND FOLLOWUP: Chest pain, left-sided lower rib chest pain, history of joy ry artery disease, status post recent bare metal stent in RCA 4 weeks ago. HISTORY OF PRESENT ILLNESS: The patient is a 61-year-old female with past medical history significan t for COPD on home oxygen, SVT, paroxysmal atrial fibrillation, mitral and tricuspid regurg, inoperab le adenocarcinoma of the lung, status post radiation, status post chemotherapy, pulmonary hypertensio n, admitted with lower chest pain which is atypical for cardiac origin. The patient had no evidence of acute coronary syndrome. The patient on cardiac catheterization also has pulmonary hypertension w ith a PA pressure of 60 mmHg, PC wedge pressure 13, pulmonary vascular resistance, PVR was 6.8 Wood u nit, consistent with primary pulmonary hypertension. The patient still complains of cough, but denie s chest pain. She says sometimes she has slightly blood-tinged sputum. PHYSICAL EXAMINATION: VITAL SIGNS: Blood pressure 100/67, respirations 16, pulse 82, temperature 97.8. When I examined th e patient, at that time pulse was 120. HEAD: Normocephalic. EYES: Pupils normal. Conjunctivae are slightly pale. NECK: JVP low. Carotids equal. THORAX: AP diameter normal. LUNGS: No significant rales. CARDIOVASCULAR: S1, S2. ABDOMEN: Soft, nontender. No organomegaly. EXTREMITIES: No clubbing, no cyanosis. LABORATORY DATA: WBC 4.8, hemoglobin 11.2, hematocrit 34.7, platelets 289. Labs showed sodium 138, potassium 5.4, BUN 21, creatinine 0.9, AST 42, ALT 16, total protein 7.0, albumin 3.6. WBC 4.8, hemo globin 11.2, hematocrit 34.7, platelet 289. DIAGNOSES: Chest pain which is atypical, no evidence of acute coronary syndrome, status post bare me shell stent 4 weeks ago in the right coronary artery, was done 07/15/2016, inoperable adenocarcinoma of the lung, chemotherapy and radiation therapy, pulmonary hypertension, chronic obstructive pulmonary d isease, obstructive sleep apnea, mitral regurgitation, tricuspid regurgitation, preserved LV function with ejection fraction 65%, history of tobacco abuse in the past, supraventricular tachycardia, paro xysmal atrial fibrillation, peripheral vascular disease, status post angioplasty of left femoral popl iteal trunk 2 years ago, repeat EBA was within normal limits. The patient's extremity ultrasound was negative for any phlebitis. PLAN: Continue Revatio. Also patient has hyperkalemia. We will repeat potassium level. The patient is on atenolol 25 mg daily to control the heart rate. Will continue that. Earlier heart rate was r ecorded as 80, so we will see how the heart rate persists. Dr. Gomez taking patient to have PET sca n as outpatient to see lung invasion and infiltrate in the chest wall. The patient is on albuterol n ebulizer therapy, amiodarone 200 mg daily, aspirin 81 mg daily, Keppra 500 mg b.i.d., furosemide 20 m g daily, Lyrica 25 mg b.i.d., Revatio 20 mg q. 12 hours, Singulair 10 mg at bedtime, atenolol 25 izzy y, prednisone 20 mg p.o. daily. We will continue present therapy. Plavix 75 mg daily, Revatio 20 mg q. 12 hours, Pepcid 20 mg p.o. b.i.d., Singulair 10 mg daily, atenolol 25 daily, prednisone 20 daily. We will follow with you. Serenity Cartwright MD cc: [id number] TT: 08/19/2016 12:13:17 Confirmation # [id number] Dictation # [id number] stephanie
--- NOTE | 2016-08-19 15:06 | DS ---
This is an unfortunate 61-year-old -[place] female who has adenocarcinoma of the lung that murguia s been under chemo and radiotherapy and the latest PET scan done in May showed some shrinking of the tumor on the left side, tumor is inoperable, and has been under the care of Dr. Gomez, Dr. George madison for COPD, and now pulmonary hypertension, and Dr. Maguire for recent findings of CAD and stent place ment and she is still on the end of the month treatment with Plavix and aspirin together. Came to e Emergency Room complaining of left-sided flank pain that was worse with a cough, cough spasms were severe. The x-rays failed to show infection. Nevertheless, she was placed on antibiotics and has be en evolving and doing better together with pulmonary toilet and is ambulatory. No need for the oncol ogist to see her as an inpatient, as this all revolved around the pulmonary. She was adjusted with er medications and seems to be doing well enough that we can continue as an outpatient. The patient was made aware that perhaps some of the pain may be coming post-radiation and may be expected to cont inue. She was educated to use guaifenesin as a mucolytic agent to help her expectorate and her revie w to continue observation as she occasionally has some hemoptysis. Review with the transmission worker. Re sume the amiodarone. Review with the racing board marker. Resume Daliresp. Other than that, she has been kept on most of her admission medications except the atenolol is being placed now to once a day rath er than twice a day because of repeated hypotension. The patient is alert and oriented this morning, is doing very well in comparison to her admission. PHYSICAL EXAMINATION: VITAL SIGNS: This morning, temperature 97.8, a pulse rate of 82 and regular, blood pressure 100/67, no longer the very low readings that we have had in the past, an O2 sat of 100%, which again fluctuat es anywhere from 94 on, and she does have O2 by nasal cannula at 3.5. Secretions are clear and thin and she remains fearful of her cancer. GENERAL: She is alert and oriented to all spheres. HEENT: Oral mucosa is moist. There is no thrush. SKIN: Turgor is adequate. NECK: Supple, no cervical lymphadenopathy, no bruit. HEART: Regular in rhythm with occasional extrasystoles appreciated. For this reason, we should cont inue the atenolol along with the amiodarone that was added. Pulmonary-feng, the high oxygenation num sarah probably reflects excellent results from the present pulmonary toilet. LUNGS: No audible wheeze. ABDOMEN: Soft, bowel sounds are present. Evaluation for DVT was negatived. She had been on anticoagulation prophylaxis with Lovenox. This wi ll all be discontinued today with the plan to discharge unless there is an issue from Dr. Martinez. DISCHARGE MEDICATIONS: Will be albuterol every 6 hours as needed, arformoterol Brovana 50 mcg twice a day, amiodarone 200 mg daily, Daliresp 500 mg daily, Dilantin 100 mg at breakfast, 200 mg at bedtim e, aspirin 81 mg daily to continue for a month total as per Dr. Maguire, Keppra 500 mg twice a day, furo semide 20 mg daily, Lyrica 25 mg twice a day, famotidine 20 mg twice a day, Plavix 75 mg daily, silde nafil 20 mg twice a day, guaifenesin as needed 200 mg q. 6 hours, the ceftriaxone will be converted o poonam to Ceftin 250 mg twice a day, montelukast 10 mg once a day. The Solu-Medrol was converted over t o 20 mg daily until seen by Dr. Singh. Atenolol 25 mg once a day. The Zithromax will be stopped. The patient is aware that she needs to follow up with Dr. Singh before the end of this week. Kit Longoria MD cc: 73 TT: 08/19/2016 15:05:48 stephanie
[2016-08-19 16:43] VITALS: BP 99/71; PULSE 92; RESP 20; TEMP 98.1; O2SAT 96
== END 2016-08-19 16:00 | disposition home or self-care (01) ==
LOC: ED 00:18 → ERH 03:42 → 2RNO 05:28 → 5RNO 08-16 14:45 → 5RSO 08-18 16:18
PROVIDERS: ADMIT Family Medicine; ATTEND Family Medicine
DX: R07.82 Intercostal pain (principal); C34.32 Malignant neoplasm of lower lobe, left bronchus or lung; R04.2 Hemoptysis; J44.1 Chronic obstructive pulmonary disease with (acute) exacerbation; I48.2 Chronic atrial fibrillation; I48.0 Paroxysmal atrial fibrillation; I27.0 Primary pulmonary hypertension; E86.0 Dehydration; I47.1 Supraventricular tachycardia; D63.8 Anemia in other chronic diseases classified elsewhere; I10 Essential (primary) hypertension; I25.10 Atherosclerotic heart disease of native coronary artery without angina pectoris; J45.909 Unspecified asthma, uncomplicated; E78.5 Hyperlipidemia, unspecified; I08.1 Rheumatic disorders of both mitral and tricuspid valves; G47.33 Obstructive sleep apnea (adult) (pediatric); G40.909 Epilepsy, unspecified, not intractable, without status epilepticus; R59.0 Localized enlarged lymph nodes; I73.9 Peripheral vascular disease, unspecified; Z99.81 Dependence on supplemental oxygen; Z87.891 Personal history of nicotine dependence; Z95.5 Presence of coronary angioplasty implant and graft
CPT/HCPCS: 36415; 71010; 71020; 71250; 80053; 82550; 82803; 83615; 83880; 84132; 84145; 84443; 84484; 85025; 85027; 85610; 85730; 87040; 87070; 93005; 93970; 94640; 94660; 96365; 96366; 96372; 96375; 96376; 97116; 97161; 99285; G0378; J0696; J1170; J1650; J1940; J2270; J2920

== ENCOUNTER 2016-08-28 21:35 | Emergency (ER) | payer MEDICARE, MEDICAID ==
[2016-08-28 22:04] VITALS: BMI 32.9
--- NOTE | 2016-08-28 22:22 | ED PDOC ---
Arrival/HPI - General Chief Complaint: ENT Problem Time Seen by Provider: 08/28/16 22:14 Historian: Patient - History of Present Illness Narrative History of Present Illness (Text): 08/28/16 22:22 Aviva Feliciano is a 61 year old female, whose past medical history includes left lower lobe lung cancer, adenocarcinoma, COPD, hypertension, CAD with stent placement, and atrial fibrillation, who presents to the ED complaining of some bleeding from the left ear. Patient states tonight while lying down she felt something in her ear and noted some blood coming out. Patient states she regularly takes Plavix and Aspirin and notes she can not recall whether she scratched her left ear recently. Patient denies any ear pain, fever, chills, headache, dizziness, focal neurological deficits, hearing changes, neck pain, back pain, or any other complaints. Time/Duration: Other (tonight) Symptom Onset: Gradual Symptom Course: Improving Severity Level: Mild Activities at Onset: Rest, Light Context: Home Past Medical History - Provider Review Nursing Documentation Reviewed: Yes - Infectious Disease Hx of Infectious Diseases: None - Tetanus Immunization Tetanus Immunization: Unknown - Cardiac Hx Cardiac Disorders: Yes Hx Congestive Heart Failure: Yes Hx Hypertension: Yes - Pulmonary Hx Chronic Obstructive Pulmonary Disease (COPD): Yes - Neurological HX Cerebrovascular Accident: No - HEENT Hx HEENT Disorder: Yes (eyeglasses) Hx Blind: No Hx Cataracts: No Hx Deafness: Yes (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 ear) Hx Epistaxis: No Hx Glaucoma: No Hx Macular Degeneration: No Other/Comment: ringing in ears - Renal Hx Renal Failure: No - Endocrine/Metabolic Hx Diabetes Mellitus Type 1: No Hx Diabetes Mellitus Type 2: No Hx Hypothyroidism: No - Hematological/Oncological Hx Blood Transfusions: Yes Hx Blood Transfusion Reaction: No - Integumentary Hx Dermatological Disorder: No Hx Basal Cell Carcinoma: No Hx Eczema: No Hx Melanoma: No Hx Psoriasis: No Hx Squamous Cell Carcinoma: No - Musculoskeletal/Rheumatological Hx Arthritis: Yes - Gastrointestinal Hx Gastrointestinal Disorders: Yes (gastritis) Hx Colostomy: No Hx Crohn's Disease: No Hx Diverticulitis: No Hx Gall Bladder Disease: Yes Hx Gastroesophageal Reflux: Yes Hx Gastrointestinal Ulcer: No Hx Ileostomy: No Hx Liver Failure: No Hx Pancreatitis: Yes HX Swallowing Problems: No Other/Comment: colonoscopy 02/2016 dx diverticulosis, ascending colon ulceration , colon polyp - Genitourinary/Gynecological Hx Genitourinary Disorders: Yes (cervical,uterine ca) Hx Hematuria: No Hx Incontinence: No Hx Prostate Problems: No Hx Sexually Transmitted Diseases: No Hx Urinary Tract Infection: No Other/Comment: hx fibroids had hyst due to fibroids - Psychiatric Hx Psychophysiologic Disorder: Yes Hx Anxiety: Yes Hx Bipolar Disorder: No Hx Depression: No Hx Emotional Abuse: No Hx Hallucinations: No Hx Panic Disorder: No Hx Post Traumatic Stress Disorder: No Hx Psychosis: No Hx Physical Abuse: No Hx Schizophrenia: No Hx Sexual Abuse: No Hx Substance Use: No - Surgical History Hx Amputation: No Hx Appendectomy: No Hx Cardiac Catheterization: No Hx Cholecystectomy: Yes Hx Gastric Bypass Surgery: No Hx Hysterectomy: Yes Hx Joint Replacement: No Hx Kidney Transplant: No Hx Liver Transplant: No Hx Mastectomy: No Hx Musculoskeletal Surgery: No Hx Open Heart Surgery: No Hx Orthopedic Surgery: No Hx Splenectomy: No Hx Valve Replacement: No Other/Comment: polypectomy, r cw pac - Anesthesia Hx Anesthesia Reactions: No Hx Malignant Hyperthermia: No - Suicidal Assessment Feels Threatened In Home Enviroment: No Family/Social History - Physician Review Nursing Documentation Reviewed: Yes Family/Social History: No Known Family HX Smoking Status: Former Smoker Hx Alcohol Use: No Hx Substance Use: No Hx Substance Use Treatment: No Allergies/Home Meds Allergies/Adverse Reactions: Allergies diallo Allergy (Verified 08/15/16 00:27) RASH Home Medications: Home Meds Medication Instructions Recorded Confirmed Gabapentin 600 mg PO HS 06/22/15 07/09/16 Albuterol HFA [Ventolin HFA 90 0.09 mg IH PRN PRN 09/26/15 07/09/16 mcg/actuation (8 g)] Review of Systems - Physician Review All systems were reviewed & negative as marked: Yes - Review of Systems Constitutional: Normal. absent: Fevers Eyes: Normal ENT: Other (+blood from ear). absent: Hearing Changes Respiratory: Normal. absent: SOB, Cough Cardiovascular: Normal. absent: Chest Pain Gastrointestinal: Normal. absent: Abdominal Pain, Diarrhea, Nausea, Vomiting Genitourinary Female: Normal. absent: Dysuria, Frequency, Hematuria, Urine Output Changes Musculoskeletal: Normal. absent: Back Pain, Neck Pain Skin: Normal. absent: Rash Neurological: Normal. absent: Headache, Dizziness, Focal Weakness Endocrine: Normal Hemo/Lymphatic: Normal Psychiatric: Normal Physical Exam Vital Signs Reviewed: Yes Temperature: Afebrile Blood Pressure: Normal Pulse: Regular Respiratory Rate: Normal Appearance: Positive for: Well-Appearing, Non-Toxic, Comfortable Pain Distress: None Mental Status: Positive for: Alert and Oriented X 3 - Systems Exam Head: Present: Atraumatic, Normocephalic Pupils: Present: PERRL Extroacular Muscles: Present: EOMI Conjunctiva: Present: Normal Ears: Present: NORMAL TM. No: Erythema, Normal Canal (Abrasion to left ear canal), TM Bulging, Fluid, TM Perf Mouth: Present: Moist Mucous Membranes Pharnyx: Present: Normal. No: ERYTHEMA, EXUDATE, TONSILS ENLARGED, Peritonsilar Swelling, Uvular Deviation, Muffled/Hoarse Voice, Strider, Soft Palate/Uvular Edema Neck: Present: Normal Range of Motion Respiratory/Chest: Present: Clear to Auscultation, Good Air Exchange. No: Respiratory Distress, Accessory Muscle Use Cardiovascular: Present: Regular Rate and Rhythm Abdomen: Present: Normal Bowel Sounds. No: Tenderness, Distention, Peritoneal Signs Neurological: Present: GCS=15, CN II-XII Intact, Speech Normal Skin: Present: Warm, Dry, Normal Color. No: Rashes Psychiatric: Present: Alert, Oriented x 3, Normal Insight, Normal Concentration Medical Decision Making ED Course and Treatment: 08/28/16 22:22 Impression: 61 year old female complaining of bleeding from her left ear tonight. Plan: -- Amoxil -- Reassess and disposition Prior Visits: Notes and results from previous visits were reviewed. On 08/15/2016, pt was seen in the ED for chest pain and shortness of breath. Pt was admitted to the hospital for further evaluation. Progress Notes: 08/28/16 23:04 Left ear thoroughly cleansed. Left ear abrasion noted. Normal TM was visualized. There was no active bleeding. On re-evaluation, the patient feels better and is in no acute distress. I have discussed the results and plan with the patient, who expresses understanding. Patient in agreement with plan to discharged home. Patient is stable for discharge. Patient was instructed to follow up with physician/clinic in 1-2 days or return if symptoms worsen or new concerning symptoms arise. - Medication Orders Current Medication Orders: Discontinued Medications Amoxicillin (Amoxil 500 Mg Cap) 500 mg PO STAT STA PRN Reason: Protocol Stop: 08/28/16 22:58 - Scribe Statement The provider has reviewed the documentation as recorded by the Herrera Chicas Provider Attestation: All medical record entries made by the Juan Pabloibana were at my direction and personally dictated by me. I have reviewed the chart and agree that the record accurately reflects my personal performance of the history, physical exam, medical decision making, and the department course for this patient. I have also personally directed, reviewed, and agree with the discharge instructions and disposition. Disposition/Present on Arrival - Present on Arrival History of DVT/PE: No History of Uncontrolled Diabetes: No Urinary Catheter: No History of Decub. Ulcer: No History Surgical Site Infection Following: None - Disposition Diagnosis: Ear canal abrasion Disposition: HOME/ ROUTINE Patient Problems: Current Active Problems Problem Status Diagnosed Congestive heart failure (CHF) Acute Ear canal abrasion Acute Anemia Chronic Anemia in chronic illness Chronic Chronic obstructive airway disease with asthma Chronic Dyspnea Chronic Hyperlipidemia Chronic Lung cancer Chronic Paroxysmal atrial fibrillation Chronic Seizure Chronic Abdominal pain Resolved Altered mental status Resolved Atrial fibrillation Resolved Atrial flutter Resolved Chest pain Resolved Dehydration Resolved Hemoptysis Resolved Nausea & vomiting Resolved SVT (supraventricular tachycardia) Resolved COPD exacerbation Ruled-out Discharge Instructions (ExitCare): Abrasion (ED) Prescriptions: Amoxicillin 875 mg PO BID #14 tab Referrals: Keira Keith MD [Primary Care Provider] - Follow up with primary
[2016-08-28 23:29] VITALS: BP 108/65; PULSE 78; RESP 22; O2SAT 95
== END 2016-08-28 23:30 | disposition home or self-care (01) ==
LOC: ED 21:35
DX: S00.412A Abrasion of left ear, initial encounter (principal); X58.XXXA Exposure to other specified factors, initial encounter; Y92.9 Unspecified place or not applicable

== ENCOUNTER 2016-09-22 05:13 | Inpatient (IN) | payer MEDICARE, MEDICAID ==
[2016-09-22 05:13] VITALS: BMI 32.9
--- NOTE | 2016-09-22 05:38 | ED PDOC ---
Arrival/HPI - General Time Seen by Provider: 09/22/16 05:24 Historian: Patient - History of Present Illness Narrative History of Present Illness (Text): 09/22/16 05:35 Aviva Feliciano is a 61 year old female, whose past medical history includes left lower lobe lung cancer, adenocarcinoma, COPD, hypertension, recurrent SVT, CAD with stent placement, and atrial fibrillation, who presents to the ED complaining of chest pain. Patient states she woke up tonight with chest pain, palpitations, and shortness of breath. Patient reports she is on home O2 and had nebulizer treatments at home. Patient notes she was recently switched from Eliquis to Plavix after her stent placement. Patient denies any fever, chills, nausea, vomiting, diarrhea, urinary symptoms, back pain, neck pain, headache, dizziness, or any other complaints. PMD: Dr. Singh Time/Duration: Other (tonight) Symptom Onset: Gradual Symptom Course: Unchanged Activities at Onset: Rest, Light Context: Home Past Medical History - Provider Review Nursing Documentation Reviewed: Yes - Infectious Disease Hx of Infectious Diseases: None - Tetanus Immunization Tetanus Immunization: Unknown - Cardiac Hx Cardiac Disorders: Yes Hx Congestive Heart Failure: Yes Hx Hypertension: Yes - Pulmonary Hx Chronic Obstructive Pulmonary Disease (COPD): Yes - Neurological HX Cerebrovascular Accident: No - HEENT Hx HEENT Disorder: Yes (eyeglasses) Hx Blind: No Hx Cataracts: No Hx Deafness: Yes (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 ear) Hx Epistaxis: No Hx Glaucoma: No Hx Macular Degeneration: No Other/Comment: ringing in ears - Renal Hx Renal Failure: No - Endocrine/Metabolic Hx Diabetes Mellitus Type 1: No Hx Diabetes Mellitus Type 2: No Hx Hypothyroidism: No - Hematological/Oncological Hx Blood Transfusions: Yes Hx Blood Transfusion Reaction: No - Integumentary Hx Dermatological Disorder: No Hx Basal Cell Carcinoma: No Hx Eczema: No Hx Melanoma: No Hx Psoriasis: No Hx Squamous Cell Carcinoma: No - Musculoskeletal/Rheumatological Hx Arthritis: Yes - Gastrointestinal Hx Gastrointestinal Disorders: Yes (gastritis) Hx Colostomy: No Hx Crohn's Disease: No Hx Diverticulitis: No Hx Gall Bladder Disease: Yes Hx Gastroesophageal Reflux: Yes Hx Gastrointestinal Ulcer: No Hx Ileostomy: No Hx Liver Failure: No Hx Pancreatitis: Yes HX Swallowing Problems: No Other/Comment: colonoscopy 02/2016 dx diverticulosis, ascending colon ulceration , colon polyp - Genitourinary/Gynecological Hx Genitourinary Disorders: Yes (cervical,uterine ca) Hx Hematuria: No Hx Incontinence: No Hx Prostate Problems: No Hx Sexually Transmitted Diseases: No Hx Urinary Tract Infection: No Other/Comment: hx fibroids had hyst due to fibroids - Psychiatric Hx Psychophysiologic Disorder: Yes Hx Anxiety: Yes Hx Bipolar Disorder: No Hx Depression: No Hx Emotional Abuse: No Hx Hallucinations: No Hx Panic Disorder: No Hx Post Traumatic Stress Disorder: No Hx Psychosis: No Hx Physical Abuse: No Hx Schizophrenia: No Hx Sexual Abuse: No Hx Substance Use: No - Surgical History Hx Amputation: No Hx Appendectomy: No Hx Cardiac Catheterization: No Hx Cholecystectomy: Yes Hx Gastric Bypass Surgery: No Hx Hysterectomy: Yes Hx Joint Replacement: No Hx Kidney Transplant: No Hx Liver Transplant: No Hx Mastectomy: No Hx Musculoskeletal Surgery: No Hx Open Heart Surgery: No Hx Orthopedic Surgery: No Hx Splenectomy: No Hx Valve Replacement: No Other/Comment: polypectomy, r cw pac - Anesthesia Hx Anesthesia Reactions: No Hx Malignant Hyperthermia: No - Suicidal Assessment Feels Threatened In Home Enviroment: No Family/Social History - Physician Review Nursing Documentation Reviewed: Yes Family/Social History: No Known Family HX Smoking Status: Former Smoker Hx Alcohol Use: No Hx Substance Use: No Hx Substance Use Treatment: No Allergies/Home Meds Allergies/Adverse Reactions: Allergies diallo Allergy (Verified 08/15/16 00:27) RASH Home Medications: Home Meds Medication Instructions Recorded Confirmed Gabapentin 600 mg PO HS 06/22/15 07/09/16 Albuterol HFA [Ventolin HFA 90 0.09 mg IH PRN PRN 09/26/15 07/09/16 mcg/actuation (8 g)] Review of Systems - Physician Review All systems were reviewed & negative as marked: Yes - Review of Systems Constitutional: Normal. absent: Fevers Eyes: Normal ENT: Normal Respiratory: SOB. absent: Cough Cardiovascular: Chest Pain, Palpitations Gastrointestinal: Normal. absent: Abdominal Pain, Diarrhea, Nausea, Vomiting Genitourinary Female: Normal. absent: Dysuria, Frequency, Hematuria, Urine Output Changes Musculoskeletal: Normal. absent: Back Pain, Neck Pain Skin: Normal. absent: Rash Neurological: Normal. absent: Headache, Dizziness Endocrine: Normal Hemo/Lymphatic: Normal Psychiatric: Normal Physical Exam Vital Signs Reviewed: Yes Vital Signs Temp Pulse Resp BP Pulse Ox 09/22/16 05:14 97.1 F L 120 H 16 110/85 95 Temperature: Afebrile Blood Pressure: Normal Pulse: Tachycardic Respiratory Rate: Normal Appearance: Positive for: Well-Appearing, Non-Toxic, Comfortable Pain Distress: None Mental Status: Positive for: Alert and Oriented X 3 - Systems Exam Head: Present: Atraumatic, Normocephalic Pupils: Present: PERRL Extroacular Muscles: Present: EOMI Conjunctiva: Present: Normal Ears: Present: Normal Mouth: Present: Moist Mucous Membranes Pharnyx: Present: Normal Neck: Present: Normal Range of Motion Respiratory/Chest: Present: Decreased Breath Sounds, Rhonchi. No: Respiratory Distress, Accessory Muscle Use Cardiovascular: Present: Regular Rate and Rhythm, Normal S1, S2. No: Murmurs Abdomen: Present: Normal Bowel Sounds. No: Tenderness, Distention, Peritoneal Signs Back: Present: Normal Inspection Upper Extremity: Present: Normal Inspection. No: Cyanosis, Edema Lower Extremity: Present: Normal Inspection. No: Edema Neurological: Present: GCS=15, CN II-XII Intact, Speech Normal, Motor Func Grossly Intact, Normal Sensory Function Skin: Present: Warm, Dry, Normal Color. No: Rashes Psychiatric: Present: Alert, Oriented x 3, Normal Insight, Normal Concentration Medical Decision Making ED Course and Treatment: 09/22/16 05:35 Impression: 61 year old female complaining of chest pain, shortness of breath, and palpitations tonight. Plan: -- CTA Chest -- EKG -- Chest X-ray -- Labs, BNP, cardiac enzymes -- Duoneb -- Reassess and disposition Prior Visits: Notes and results from previous visits were reviewed. Progress Notes: Reviewed EKG, sinus tachycardia at 127 bpm. 1st degree AV block. Non-specific ST /T wave changes. 09/22/16 06:[address] Geronimo, pending CTA Chest Angio, re-assessment, and final disposition. - Lab Interpretations Lab Results: 09/22/16 05:30 09/22/16 05:30 Lab Results 09/22/16 05:30: WBC 4.6, RBC 4.07, Hgb 12.2, Hct 37.8, MCV 92.9, MCH 30.0, MCHC 32.3, RDW 15.0 H, Plt Count 273, MPV 9.7, PT 12.1 H, INR 1.12 H, APTT 29.6, Sodium 142, Potassium 4.4, Chloride 104, Carbon Dioxide 27, Anion Gap 15, BUN 12 , Creatinine 1.0, Est GFR ( Amer) > 60, Est GFR (Non-Af Amer) 56, Random Glucose 137 H, Calcium 8.9, Total Bilirubin 0.7, AST 38, ALT 42, Alkaline Phosphatase 182 H, Lactate Dehydrogenase 823 H, Total Creatine Kinase 46, Troponin I 0.01 D, NT-Pro-B Natriuret Pep 4740 H, Total Protein 6.9, Albumin 3.6, Globulin 3.3, Albumin/Globulin Ratio 1.1 - RAD Interpretation Radiology Orders: 09/22/16 05:31 CHEST PORTABLE [RAD] Stat 09/22/16 05:42 ANGIO CHEST PE PROTOCOL [CT] Stat - EKG Interpretation Interpreted by ED Physician: Yes Type: 12 lead EKG - Medication Orders Current Medication Orders: Sodium Chloride (Sodium Chloride 0.9%) 250 mls @ 250 mls/hr IV .Q1H STA Stop: 09/22/16 06:55 Last Admin: 09/22/16 06:24 Dose: 250 MLS/HR eMAR Start Stop Document 09/22/16 06:24 EKEOO (Rec: 09/22/16 06:24 [id number]) Intravenous Solution Start Date 09/22/16 Start Time 06:24 Discontinued Medications Albuterol/Ipratropium (Duoneb 3 Mg/0.5 Mg (3 Ml) Ud) 3 ml IH ONCE STA Stop: 09/22/16 05:43 Last Admin: 09/22/16 05:48 Dose: 3 ML Iohexol (Omnipaque 350 100 Ml) Confirm Administered Dose 350 mg .ROUTE .STK-MED ONE Stop: 09/22/16 06:18 Morphine Sulfate (Morphine) 2 mg IVP STAT STA Stop: 09/22/16 05:46 Last Admin: 09/22/16 05:54 Dose: 2 MG MAR Pain Assessment Document 09/22/16 05:54 EKEOO (Rec: 09/22/16 05:54 [id number]) Pain Reassessment Is this a pain reassessment? No Sleep Is patient sleeping during reassessment? No Presence of Pain Presence of Pain Yes IVP Administration Document 09/22/16 05:54 EKEOO (Rec: 09/22/16 05:54 [id number]) Charges for Administration # of IVP Administrations 1 - Scribe Statement The provider has reviewed the documentation as recorded by the Juan Pabloibana Chicas Provider Attestation: All medical record entries made by the Juan Pabloibe were at my direction and personally dictated by me. I have reviewed the chart and agree that the record accurately reflects my personal performance of the history, physical exam, medical decision making, and the department course for this patient. I have also personally directed, reviewed, and agree with the discharge instructions and disposition. Disposition/Present on Arrival - Present on Arrival Any Indicators Present on Arrival: No History of DVT/PE: No History of Uncontrolled Diabetes: No Urinary Catheter: No History Surgical Site Infection Following: None - Disposition Have Diagnosis and Disposition been Completed?: No Diagnosis: Lung cancer, COPD (chronic obstructive pulmonary disease), Chest pain in adult Disposition Time: 07:00 Patient Problems: Current Active Problems Problem Status Diagnosed Congestive heart failure (CHF) Acute Anemia Chronic Anemia in chronic illness Chronic Chronic obstructive airway disease with asthma Chronic Dyspnea Chronic Hyperlipidemia Chronic Lung cancer Chronic Paroxysmal atrial fibrillation Chronic Seizure Chronic Abdominal pain Resolved Altered mental status Resolved Atrial fibrillation Resolved Atrial flutter Resolved Chest pain Resolved Dehydration Resolved Hemoptysis Resolved Nausea & vomiting Resolved SVT (supraventricular tachycardia) Resolved COPD exacerbation Ruled-out Condition: STABLE Discharge Instructions (ExitCare): Chest Pain (ED)
[2016-09-22] MEDS ORDERED: Albuterol-Ipratrop 3 mg / 0.5 (3 ml) UD IH STA (05:42)
[2016-09-22] MEDS ORDERED: Morphine 2 mg/ml ISec IVP STA (05:45)
[2016-09-22 05:56] LABS: HEMATOCRIT 37.8 % (36.0-48.0); MEAN CELL VOLUME 92.9 fL (80.0-105.0); MEAN CORPUSCULAR HGB CONC 32.3 g/dl (31.0-37.0); MEAN PLATELET VOLUME 9.7 fl (7.0-11.0); WHITE BLOOD COUNT 4.6 10^3/ul (4.5-11.0)
[2016-09-22] MEDS ORDERED: Sodium Chloride 0.9% 250 ML IV STA (05:56)
[2016-09-22 06:05] LABS: ALB/GLOB RATIO 1.1 (1.1-1.8); ALKALINE PHOSPHATASE 182 U/L (38-133); ALT/SGPT 42 U/L (7-56); AST/SGOT 38 U/L (15-39); BILIRUBIN,TOTAL 0.7 mg/dL (0.2-1.3); BLOOD UREA NITROGEN 12 mg/dL (7-21); CALCIUM 8.9 mg/dL (8.4-10.5); CARBON DIOXIDE 27 mmol/L (21-33); CHLORIDE 104 mmol/L (98-107); GFR AFRICAN-AMERICAN > 60; GLUCOSE,RANDOM 137 mg/dL (70-110); INR 1.12 (0.93-1.08); PARTIAL THROMBOPLASTIN TIME 29.6 Seconds (23.7-30.8); POTASSIUM 4.4 mmol/L (3.6-5.0); SODIUM 142 mmol/L (132-148); TOTAL PROTEIN 6.9 g/dL (5.8-8.3)
[2016-09-22] MEDS ORDERED: Iohexol 350 MG/100 ML VIAL ONE (06:17)
[2016-09-22 06:18] LABS: TROPONIN I 0.01 ng/mL
--- NOTE | 2016-09-22 07:12 | ED PDOC ---
Physical Exam Vital Signs Reviewed: Yes Vital Signs Temp Pulse Resp BP Pulse Ox 09/22/16 07:28 115 H 16 102/51 L 95 09/22/16 05:14 97.1 F L 120 H 16 110/85 95 Temperature: Afebrile Blood Pressure: Normal Pulse: Tachycardic Respiratory Rate: Normal Appearance: Positive for: Well-Appearing, Non-Toxic, Comfortable Pain Distress: None Mental Status: Positive for: Alert and Oriented X 3 Medical Decision Making ED Course and Treatment: 09/22/16 07:09 Patient endorsed to me by , pending imagining, reevaluation and disposition. Patient is a 61 year old female who presents to the emergency department complaining of chest pain, palpitations, and chest pain. States that she used nebulizers and home O2 for minimal relief. 09/22/16 07:21 CXR interpreted by me: No cardiomegaly. No effusion. No obvious infiltrates. No acute changes from 08/1509/22/16 07:40 On reevaluation, the lungs are clear and the patient currently denies chest pain and shortness of breath. 09/22/16 07:41 CT Angiography Chest With Intravenous Contrast interpreted by Marissa Chacon MD FINDINGS: Pulmonary arteries: No evidence of pulmonary embolism. Aorta: No thoracic aortic aneurysm. Lungs: Left lower lobe nodule in posterior basilar segment of 7.5 mm. Pleural based nodule right lower lobe a 6 mm. Both without change. Pleural space: Small left pleural effusion. No pneumothorax. Heart: Cardiomegaly. Right venous port terminates in right atrium. No significant pericardial effusion. Bones/joints: No osteolytic or blastic lesion. Spondylosis thoracic spine. Soft tissues: Unremarkable. Lymph nodes: AP window and mediastinal nodes up to 2 cm. Bilateral hilar nodes of 1 cm and less. IMPRESSION: 1. No evidence of pulmonary embolism. 2. Stable bilateral lower lobe nodules. 09/22/16 07:49 Case discussed with , covering for Dr. Singh, who agrees with the plan to obs patient to telemetry for chest pain and SOB. Accepts patient under his service. Pt aware of and agrees with plan 09/22/16 09:[address] Longoria, confirmed pt on plavix, off elaquis. pt still has some cp with new EKG changes. Dr. Vijay herr, covering for Dr. Maguire, awaiting callback 09/22/16 09:54 Case discussed in detail with . States he will see the patient in hospital. - Lab Interpretations Lab Results: 09/22/16 05:30 09/22/16 05:30 Lab Results 09/22/16 05:30: WBC 4.6, RBC 4.07, Hgb 12.2, Hct 37.8, MCV 92.9, MCH 30.0, MCHC 32.3, RDW 15.0 H, Plt Count 273, MPV 9.7, PT 12.1 H, INR 1.12 H, APTT 29.6, Sodium 142, Potassium 4.4, Chloride 104, Carbon Dioxide 27, Anion Gap 15, BUN 12 , Creatinine 1.0, Est GFR ( Amer) > 60, Est GFR (Non-Af Amer) 56, Random Glucose 137 H, Calcium 8.9, Total Bilirubin 0.7, AST 38, ALT 42, Alkaline Phosphatase 182 H, Lactate Dehydrogenase 823 H, Total Creatine Kinase 46, Troponin I 0.01 D, NT-Pro-B Natriuret Pep 4740 H, Total Protein 6.9, Albumin 3.6, Globulin 3.3, Albumin/Globulin Ratio 1.1 - RAD Interpretation Radiology Orders: 09/22/16 05:31 CHEST PORTABLE [RAD] Stat 09/22/16 05:42 ANGIO CHEST PE PROTOCOL [CT] Stat Thresher Broomcorn: Radiologist - Medication Orders Current Medication Orders: Amiodarone HCl (Cordarone) 200 mg PO DAILY DANICA Arformoterol Tartrate (Brovana) 15 mcg IH [id number] DANICA Aspirin (Ecotrin) 81 mg PO DAILY DANICA Atenolol (Tenormin) 25 mg PO DAILY DANICA Budesonide (Pulmicort Respules) 0.5 mg IH [id number] DANICA Clopidogrel Bisulfate (Plavix) 75 mg PO DAILY DANICA Ergocalciferol (Drisdol 50,000 Intl Units Cap) 1 cap PO Q7D DANICA Folic Acid (Folic Acid) 1 mg PO DAILY DANICA Furosemide (Lasix) 20 mg IVP Q12 DANICA Gabapentin (Neurontin) 300 mg PO HS DANICA PRN Reason: Protocol Levetiracetam (Keppra) 500 mg PO BID DANICA Phenytoin Sodium (Dilantin) 100 mg PO DAILY DANICA Tiotropium [place] (Spiriva) 18 mcg IH DAILY DANICA Discontinued Medications Albuterol/Ipratropium (Duoneb 3 Mg/0.5 Mg (3 Ml) Ud) 3 ml IH ONCE STA Stop: 09/22/16 05:43 Last Admin: 09/22/16 05:48 Dose: 3 ML Aspirin (Aspirin Chewable) 324 mg PO STAT STA Stop: 09/22/16 07:13 Last Admin: 09/22/16 07:17 Dose: 324 MG Aspirin (Aspirin) Confirm Administered Dose 1,300 mg .ROUTE .STK-MED ONE Stop: 09/22/16 07:17 Last Admin: 09/22/16 08:17 Dose: Atorvastatin Calcium (Lipitor) 40 mg PO STAT STA Stop: 09/22/16 08:33 Last Admin: 09/22/16 09:45 Dose: 40 MG Sodium Chloride (Sodium Chloride 0.9%) 250 mls @ 250 mls/hr IV .Q1H STA Stop: 09/22/16 06:55 Last Admin: 09/22/16 06:24 Dose: 250 MLS/HR eMAR Start Stop Document 09/22/16 06:24 EKEOO (Rec: 09/22/16 06:24 EKEOO [id number]) Intravenous Solution Start Date 09/22/16 Start Time 06:24 Iohexol (Omnipaque 350 100 Ml) Confirm Administered Dose 350 mg .ROUTE .STK-MED ONE Stop: 09/22/16 06:18 Morphine Sulfate (Morphine) 2 mg IVP STAT STA Stop: 09/22/16 05:46 Last Admin: 09/22/16 05:54 Dose: 2 MG MAR Pain Assessment Document 09/22/16 05:54 EKEOO (Rec: 09/22/16 05:54 EKEOO [id number]) Pain Reassessment Is this a pain reassessment? No Sleep Is patient sleeping during reassessment? No Presence of Pain Presence of Pain Yes IVP Administration Document 09/22/16 05:54 EKEOO (Rec: 09/22/16 05:54 EKEOO [id number]) Charges for Administration # of IVP Administrations 1 - Scribe Statement The provider has reviewed the documentation as recorded by the Herrera Brown Provider Attestation: All medical record entries made by the Scribe were at my direction and personally dictated by me. I have reviewed the chart and agree that the record accurately reflects my personal performance of the history, physical exam, medical decision making, and the department course for this patient. I have also personally directed, reviewed, and agree with the discharge instructions and disposition. Disposition/Present on Arrival - Present on Arrival Any Indicators Present on Arrival: No History of DVT/PE: No History of Uncontrolled Diabetes: No Urinary Catheter: No History of Decub. Ulcer: No History Surgical Site Infection Following: None - Disposition Have Diagnosis and Disposition been Completed?: Yes Diagnosis: Lung cancer, COPD (chronic obstructive pulmonary disease), Chest pain in adult Disposition Time: 08:00 Patient Plan: Observation Patient Problems: Current Active Problems Problem Status Diagnosed COPD (chronic obstructive pulmonary disease) Acute Chest pain in adult Acute Congestive heart failure (CHF) Acute Anemia Chronic Anemia in chronic illness Chronic Chronic obstructive airway disease with asthma Chronic Dyspnea Chronic Hyperlipidemia Chronic Lung cancer Chronic Paroxysmal atrial fibrillation Chronic Seizure Chronic Abdominal pain Resolved Altered mental status Resolved Atrial fibrillation Resolved Atrial flutter Resolved Chest pain Resolved Dehydration Resolved Hemoptysis Resolved Nausea & vomiting Resolved SVT (supraventricular tachycardia) Resolved COPD exacerbation Ruled-out Condition: STABLE
--- NOTE | 2016-09-22 07:33 | CT ---
EXAM: CT Angiography Chest With Intravenous Contrast CLINICAL HISTORY: 61 years old, female; Pain; Chest pain; Patient HX: SOB, palpatations TECHNIQUE: Axial computed tomographic angiography images of the chest with intravenous contrast using pulmonary embolism protocol. This CT exam was performed using one or more of the following dose reduction techniques: automated exposure control, adjustment of the mA and/or kV according to patient size, and/or use of iterative reconstruction technique. MIP reconstructed images were created and reviewed. Coronal and sagittal reformatted images were created and reviewed. CONTRAST: 96 mL of omnipaque 350 administered intravenously. EXAM DATE/TIME: 09/22/2016 5:42 AM COMPARISON: CT - ANGIO CHEST PE PROTOCOL 06/28/2016 6:27:07 PM FINDINGS: Pulmonary arteries: No evidence of pulmonary embolism. Aorta: No thoracic aortic aneurysm. Lungs: Left lower lobe nodule in posterior basilar segment of 7.5 mm. Pleural based nodule right lower lobe a 6 mm. Both without change. Pleural space: Small left pleural effusion. No pneumothorax. Heart: Cardiomegaly. Right venous port terminates in right atrium. No significant pericardial effusion. Bones/joints: No osteolytic or blastic lesion. Spondylosis thoracic spine. Soft tissues: Unremarkable. Lymph nodes: AP window and mediastinal nodes up to 2 cm. Bilateral hilar nodes of 1 cm and less. IMPRESSION: 1. No evidence of pulmonary embolism. 2. Stable bilateral lower lobe nodules.
--- NOTE | 2016-09-22 08:33 | RAD ---
HISTORY: sob COMPARISON: No prior. FINDINGS: LUNGS: No active pulmonary disease. PLEURA: No significant pleural effusion identified, no pneumothorax apparent. CARDIOVASCULAR: Normal. OSSEOUS STRUCTURES: No significant abnormalities. VISUALIZED UPPER ABDOMEN: Normal. OTHER FINDINGS: None. IMPRESSION: No active disease.
[2016-09-22] MEDS ORDERED: Ergocalciferol 50,000 Intl Units Cap PO SCH (08:45)
[2016-09-22 10:41] LABS: TROPONIN I 0.02 ng/mL
[2016-09-22] MEDS ORDERED: Levalbuterol 0.63 MG/3 ML Inhal Soln UD IH SCH (11:00)
[2016-09-22] MEDS: Tiotropium 18 mcg Cap For Inhalation IH SCH (11:09)
--- NOTE | 2016-09-22 12:47 | CON ---
DATE: 09/22/2016 Cardiology consultation (for Dr. Maguire). HISTORY OF PRESENT ILLNESS: The patient is a 61-year-old woman with a complex history who presents w ith palpitations who presents with palpitations and chest pain. PAST MEDICAL HISTORY: Documented pulmonary hypertension. She is status post PTCA with a bare metal stent 2 months ago. She is also being treated with chemotherapy for lung CA. She denies chest pain now and denies shortness of breath, but predominantly with palpitations. SOCIAL HISTORY: She denies smoking now. REVIEW OF SYSTEMS: A 14-point review of systems was reviewed. The patient no longer complains of ch est pain and her palpitations much better controlled, negative dyspnea noted. PHYSICAL EXAMINATION: VITAL SIGNS: Blood pressure is 99/63. The heart rate is in the 80s. NECK: Negative JVD. LUNGS: No rales noted. HEART: Revealed S1, S2. EXTREMITIES: Without edema. LABORATORIES: Includes an EKG that shows sinus tachycardia. On admission, currently her telemetry m onitor reveals normal sinus rhythm in the 80s. Her laboratories reveal troponins that are negative x 2. BUN and creatinine are unremarkable. The glucose is 137. Hemoglobin is 12.2. IMPRESSION: 1. Sinus tachycardia, which is improved. 2. Resolution of chest pain. 3. No evidence for acute coronary syndrome. 4. History of percutaneous transluminal coronary angioplasty with a bare metal stent. 5. Lung cancer. 6. Pulmonary hypertension. Given these findings, there is no evidence for acute coronary syndrome. Her hemodynamics have improv ed. We will discontinue her clopidogrel since she is now more than 1 month past her bare metal stent impl antation. In the morning, we will transfer the case back to Dr. Maguire. Clement Linares MD cc: [id number] TT: 09/22/2016 12:47:11 Confirmation # [id number] Dictation # [id number] an
--- NOTE | 2016-09-22 13:02 | HP ---
HISTORY OF PRESENT ILLNESS: The patient came to the Emergency Room after having chest tightness, pepper phoresis and shortness of breath of an acute onset that she tried to discard but she could not sleep and awoke her from her sleep and she came to the Emergency Room. Unusual presentation as in the past . She has come and always requires admission because of the comorbidities, but this is slightly diff erent than her other locations. Recently she underwent catheterization and had stent and has been on Plavix and aspirin medications for her arrhythmia. Using Cardizem was stopped due to her hypotensiv e episodes and today arrives with mild hypotension. ER physician was concerned to rule out a new emb olus and CT angio was negative. Nevertheless, the chest tightness persisted and as she is on oral si ldenafil for her pulmonary hypertension and on beta parrish for her rapid heart rate, she is not in a rapid ventricular rate this morning, but remains not improving despite some gentle hydration that wa s done with her arrival. Admission is warranted as she is at high risk for complications with underl [place] arrhythmia of atrial fibrillation that occasionally goes into rapid ventricular rate and current ly not on Cardizem. The amiodarone has been on board and she takes and this is not correcting the rh ythm. Her beta blockade is on a twice a day medication of atenolol 25, so we will adjust it to just once a day as her blood pressure on our evaluation was in the 78/52 range, unlike the automatic readi ngs in the Emergency Room. She remains slightly uncomfortable with the chest tightness. No diaphore sis. Initial cardiac enzymes were negative. So, the patient was not discharged from here, but less than a month ago, and she underwent her last chemotherapy for adenocarcinoma of the lung over 2 weeks ago, so this does not seem to be the case at present. CURRENT MEDICATIONS: Reviewed. Atenolol 25 twice a day that will be brought down to once a day, ami odarone 200 once a day, gabapentin 300 at bedtime, Spiriva Respimat 2.5 two inhalations once a day, a torvastatin 40 once a day, Brovana 50 mcg twice a day, Asmanex 220 once a day inhalation, which we ar e changing over to Pulmicort via nebulizer. She is on aspirin, adult low strength dose 85 mg and liseth pidogrel 75 once a day. Her Eliquis has been discontinued while this was put on. She is on furosemi de 20 twice a day. The rescue medication that she has at home is ipratropium p.r.n. She is on folic acid 1 mg daily, vitamin D 50,000 units weekly, sildenafil 20 mg 3 times a day according to the offi ce. The patient is on twice a day as we confront her with the dosages and Keppra 500 mg twice a day. She has not been back on her Singulair, omeprazole, or ibuprofen. The diltiazem CD 180 was discont inued due to the hypotension. 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 Gomez, and she has occasional bouts of bilateral side or chest pain, on the l eft than on the right. Last episode of right-sided chest pain evolved with a coronary artery disease . PAST SURGICAL HISTORY: Remarkable for an epidermoid tumor of the brain in 2012, last colonoscopy in 2015, left lung biopsy in 2016. FAMILY HISTORY: Father is , diagnosed with cancer. Mother is , she also had cancer. One brother is as a consequence of alcoholism. She is not able to carry much physical act ivity at the present, as she is undergoing chemotherapy. SOCIAL HISTORY: She is single, but she lives with the family. Since the onset of her cancer she has been off cigarettes. Does not use recreational alcohol and does admit up to 2-3 cups of coffee a da y. ALLERGIES: THEY ONLY HAVE TO SYED AND PLANTS. The latest hospitalization was last month at [facility] ([facility] from 08/15 to 08/19. Before that was from 07/01 to 07/02. Before that 06/28 to 06/30. Her SVT causes admission in the past 6 months . IMPRESSION: She is being admitted for chest pain with history of ASHD. We will do cardiac enzymes a nd request cardiac consult. SECONDARY DIAGNOSES: 1. Suspicion of chronic obstructive pulmonary disease with comorbid pulmonary hypertension. 2. Adenocarcinoma of the lung, currently being treated with chemotherapy on a monthly basis. 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 We jonathon l wait to see what cardio offers. 3. Hypotension. PLAN OF CARE: As suggested with the consultants. PHYSICAL EXAMINATION: GENERAL: Alert and oriented to all spheres this morning, still with recurrent chest tightness that s he describes that comes and goes. VITAL SIGNS: Temperature of 97.1 degrees, pulse rate of 120, respiratory rate of 16, blood pressure of 98/60, with an O2 sat of 93%. HEENT: Oral mucosa is moist. Pupils are equally round and reactive to light and accommodation. Ext raocular movement is intact. NECK: Supple, no bruit appreciated. No cervical nodes. There are no lateralizing neurological sign s. LUNGS: Have diminished breath sounds but not able to order picker any rales. No wheeze. HEART: Appears to be irregularly irregular in rhythm, but perhaps regularly irregular. ABDOMEN: Soft, bowel sounds are present. EXTREMITIES: Have no edema and they do not appear cold. Vitals mentioned before, make the patient a candidate for telemetry with a rapid rate that we are not able to at present administer Cardizem, given her low blood pressure, without speaking with the card iologist or without his consultation. We will defer to his arrival EKG had some new EKG changes in some of the inferior leads. We will wait to see the evaluation from a cardiac standpoint. Dr. Linares paged in the Emergency Room and paged now while we dictate. We are a waiting his call back. LABORATORY DATA: CBC shows no new anemia. Her platelet count is 273. PT/INR are acceptable. Elect rolytes show no hypokalemia, random glucose of 137 consistent with not fasting today, alkaline phosph atase 182. LDH 823. CK 46, troponin 0.01. BNP 4740; last admission, she was in the 4100; chronic o r perhaps no part. We will wait to see Dr. Martinez's review. Chest portable failed to show any effus ions or CHF. Angio CT was consistent with stable nodules, no PE. Suggested orders were carried out and we will wait for review from Dr. Linares. Kit Longoria MD cc: [phone] TT: 09/22/2016 13:01:29 dio
--- NOTE | 2016-09-22 13:20 | CARD ---
APPROVED REPORT EKG Measurement Heart [id number] IA [id number] <Conclusion> Sinus tachycardia with 1st degree AV block vs Junctional tachycardia ST & T wave abnormality, nonspecific Abnormal ECG
--- NOTE | 2016-09-22 13:26 | CARD ---
APPROVED REPORT EKG Measurement Heart [id number] <Conclusion> Consider Junctional tachycardia ST & T wave abnormality, nonspecific Abnormal ECG
[2016-09-22] MEDS: Levalbuterol 0.63 MG/3 ML Inhal Soln UD IH PRN (13:36)
[2016-09-22] MEDS: guaiFENesin-Codeine 100-10mg/5ml Syrup (5 ml) UD PO PRN (17:27)
--- NOTE | 2016-09-22 18:47 | CON ---
DATE: 09/22/2016 REFERRING PHYSICIAN: Dr. Longoria. REASON FOR CONSULT: Cough, shortness of breath, sleep apnea syndrome, chronic lung disease, history of lung cancer, pulmonary hypertension. HISTORY OF PRESENT ILLNESS: This is a 61-year-old female well known to me from office and previous a dmission, has a history of lung cancer, being treated with chemotherapy, last chemo was 2 months ago, recently found to have a history of hypertension treated with Revatio, chronic obstructive lung dise ase, history of GERD, hyperlipidemia, hypertension, sleep apnea syndrome, comes into Emergency Room w ith cough, shortness of breath, has pleuritic type chest pain. CT angio was done, which was negative for pulmonary embolism, but does show her lung nodule. She has a cough, sputum production. No hemo ptysis. No nausea, no vomiting, no diarrhea. No leg pain or leg swelling. PAST MEDICAL HISTORY: Chronic obstructive lung disease, pulmonary hypertension, chronic obstructive lung disease, lung cancer treated with radiation, on chemotherapy, last chemo was 2 months ago. ALLERGIES: HAS SEASONAL ALLERGIES. NOT ALLERGIC TO MEDICINE. SOCIAL HISTORY: Stopped smoking at the time of diagnosis of cancer. Denies any excessive alcohol us e. FAMILY HISTORY: Positive for cancer. Also of excessive alcohol use. MEDICATIONS: She is on Brovana 15 mcg inhaled twice a day, amiodarone 200 mg daily, Dilantin 100 mg daily, vitamin D 50,000 units q. 7 days, Ecotrin 81 mg daily, folic acid 1 mg daily, Keppra 500 mg tw ice a day, Lasix 20 mg twice a day, Neurontin 300 mg at bedtime, Pulmicort inhaled twice a day, Robit sin with Codeine 5 mL q. 6 hours p.r.n., Spiriva 1 capsule inhaled daily, Tenormin 25 mg daily, Xop enex 0.63 three times a day p.r.n. REVIEW OF SYSTEMS: No headache. Has rhinitis, cough, sputum production, chest pain and shortness of breath. No nausea, vomiting, diarrhea. No dysuria. No leg pain or leg swelling. PHYSICAL EXAMINATION: GENERAL: She is lying in the bed, mild distress secondary to cough and shortness of breath. VITAL SIGNS: Temp is 98, heart rate is 93, respiratory rate is 20, blood pressure 99/83, pulse ox is 93% on nasal cannula. HEENT: Moist mucous membranes. Crowded airway. Mallampati score is 4. NECK: Supple. No JVD. LUNGS: Has bilateral expiratory wheezing and rhonchi and few basilar crackles. HEART: S1, S2. ABDOMEN: Soft, nontender. No organomegaly. EXTREMITIES: There is no edema. NEUROLOGIC: Awake, alert, follows simple commands. LABORATORY DATA: Shows hemoglobin 12.2, hematocrit 37.8, WBC 4.6, platelet is 273. INR of 1.12, PTT is 30. Sodium 142, potassium 4.4, chloride 104, bicarbonate 27, BUN 12, creatinine 1.0, glucose 137 , calcium 8.9, total bilirubin 0.7, AST 38, ALT 42, alkaline phosphatase is 182, LDH 700. Troponin i s 0.02, albumin 3.6. CAT scan of the chest was negative for PE. Has a lung nodule. IMPRESSION AND PLAN: Exacerbation of chronic obstructive lung disease, probably secondary to seasona l changes and severe pulmonary hypertension, unresectable lung cancer and radiation therapy, la st chemo 2 months ago. Seizure disorder, atrial fibrillation, coronary artery disease, history of co ronary stent, sleep apnea syndrome. We will add IV and inhaled bronchodilator, may add doxycycline 1 00 mg twice a day, anticoagulation. Gastric prophylaxis. CPAP 7 cm with 35% oxygen while sleeping. We will discontinue Lasix and restart her pulmonary hypertension medication. Thank you and will angela lopez. Serenity Martinez MD cc: [phone] TT: 09/22/2016 18:47:27 Confirmation # [id number] Dictation # [id number] mn
[2016-09-22] MEDS: Arformoterol 15 mcg/2 ml Inh Sol IH SCH (21:01)
[2016-09-22] MEDS: Budesonide 0.5 mg/2 ml Inhal Susp UD IH SCH (21:01)
[2016-09-22] MEDS: MethylPREDNISolone 40 mg Vial IVP SCH (22:05)
[2016-09-22] MEDS: Sildenafil 20 MG TAB PO SCH (22:06)
[2016-09-23] MEDS: Levalbuterol 0.63 MG/3 ML Inhal Soln UD IH PRN ×4 (04:24→20:38)
[2016-09-23] MEDS: MethylPREDNISolone 40 mg Vial IVP SCH ×3 (05:17→21:54)
[2016-09-23] MEDS: Sildenafil 20 MG TAB PO SCH ×4 (05:17→22:21)
[2016-09-23 06:35] VITALS: O2SAT 95
[2016-09-23] MEDS: Arformoterol 15 mcg/2 ml Inh Sol IH SCH ×2 (07:53→20:38)
[2016-09-23] MEDS: Budesonide 0.5 mg/2 ml Inhal Susp UD IH SCH ×2 (07:53→20:38)
[2016-09-23] MEDS: guaiFENesin-Codeine 100-10mg/5ml Syrup (5 ml) UD PO PRN (07:53)
[2016-09-23 08:13] LABS: ALB/GLOB RATIO 1.2 (1.1-1.8); ALKALINE PHOSPHATASE 186 U/L (38-133); ALT/SGPT 42 U/L (7-56); AST/SGOT 31 U/L (15-39); BILIRUBIN,TOTAL 0.3 mg/dL (0.2-1.3); BLOOD UREA NITROGEN 9 mg/dL (7-21); CALCIUM 8.9 mg/dL (8.4-10.5); CARBON DIOXIDE 26 mmol/L (21-33); CHLORIDE 103 mmol/L (95-110); GFR AFRICAN-AMERICAN > 60; GLUCOSE,RANDOM 185 mg/dL (70-110); POTASSIUM 4.1 mmol/L (3.6-5.0); SODIUM 143 mmol/L (132-148); TOTAL PROTEIN 6.7 g/dL (5.8-8.3)
[2016-09-23] MEDS: Tiotropium 18 mcg Cap For Inhalation IH SCH (09:15)
--- NOTE | 2016-09-23 09:56 | PN ---
DATE: 09/23/2016 The patient was admitted to telemetry yesterday morning for heart palpitations and increased chest tightness. SUBJECTIVE: The patient is feeling much better. The patient continues with exertional dyspnea and productive cough. Denies any chest pain or palpitation. PHYSICAL EXAMINATION: VITAL SIGNS: Stable. Temperature is 97.9; pulse 87, regular; blood pressure 103/39, respiratory rate 20, oxygen saturation on 3 liters nasal cannula is 93%. GENERAL: The patient seems comfortable. Alert, awake, oriented. HEENT: Head is normocephalic, atraumatic. Oral mucosa is moist. NECK: Supple. LUNGS: With decreased breath sounds. No rhonchi, wheezing or rales. HEART: With regular rhythm, rate of 90 per minute. ABDOMEN: Soft, nontender, nondistended. EXTREMITIES: With no edema. DIAGNOSTIC TESTS: CMP with normal electrolytes. Random glucose is elevated at 185. The patient is on Solu-Medrol. Her repeated troponin is 0.02. ASSESSMENT: 1. Right cardiomyopathy with chronic and acute congestive heart failure with elevated BNP. 2. History of cardiac arrhythmia, resolved. 3. Exacerbation of chronic obstructive pulmonary disease. 4. Severe pulmonary hypertension. 5. Left lower lung cancer. PLAN OF TREATMENT: She will be maintained on Solu-Medrol, oxygen and Xopenex. I will add Lasix when in the hospital. Will monitor blood pressure and electrolytes closely. Continue sildenafil for pulmonary hypertension. Keira Keith MD cc: [phone] TT: 09/23/2016 09:55:58 Confirmation # [id number] Dictation # [id number] mn CHRISTIANO
[2016-09-23 12:19] LABS: TROPONIN I 0.02 ng/mL
--- NOTE | 2016-09-23 12:32 | CARD ---
APPROVED REPORT EKG Measurement Heart [id number] OR [id number] <Conclusion> Normal sinus rhythm Normal ECG
--- NOTE | 2016-09-23 13:50 | PN ---
DATE: 09/23/2016 REASON FOR CONSULTATION AND FOLLOWUP: Chest pain, palpitation. BRIEF CLINICAL HISTORY: This is a 61-year-old female with past medical history of lung CA, COPD, SVT , paroxysmal atrial fibrillation; lower lobe lung CA, inoperable adenocarcinoma, status post radiatio n, status post chemo; pulmonary hypertension, history of PAD; coronary artery disease, status post ba re metal stent 07/15/2016 in right coronary artery, who came in with complaint of palpitation then fe lt some chest pain going for chest to epigastrium with palpitation. PAST MEDICAL HISTORY: Significant for mentioned adenocarcinoma diagnosed in 01/2016, status post ch emo, status post radiation, inoperable; history of COPD, history of obstructive disease, history of h ome oxygen; history of paroxysmal atrial fibrillation, multiple admissions with SVT; pulmonary hypert ension, right ventricular systolic pressure last echo 12/25/2014 was 80 mmHg. MOST RECENT CARDIAC WORKUP: The patient had echocardiography recently on 07/11/2016 that showed ejec tion fraction of 70% while the patient was on Primacor, dilated RA, dilated RV, dilated LA, left vent ricle severely dilated, systolic function of RV severely reduced, mitral regurgitation severe, tricus pid regurgitation severe, pulmonary pressure of 123 mmHg dated 07/11/2016. The patient underwent a r ight and left heart catheterization 07/15/2016 that revealed ____ LV function, ejection fraction 55%, left main essentially free of significant disease, bifurcated LAD and circumflex, LAD without any si gnificant disease, circumflex with diffuse calcification noted at 20-30% stenosis, distal circumflex ____ 30% stenosis noted, 80-90% proximal RCA stenosis which was successfully stented with bare mental stent. EDP was in the range of 15-18. Ejection fraction 65% by catheterization. Right heart roalndo terization revealed RA 10-12, RV 60/10, PA 60/27, mean PA 38, pulmonary capillary wedge pressure of 1 3. Cardiac output 3.83 liters, cardiac index 2.95. Pulmonary vascular resistance (PVR), 6.8 Wood's unit, considered pulmonary hypertension. Right heart catheterization was done 12 hours after discont inuing Primacor. Successful PTCA of RCA with a bare metal stent was done. Bare metal stent was done because the patient cannot continue dual antiplatelet therapy and chemotherapy, cannot continue dual antiplatelet therapy for a long time. Anticipate pancytopenia from chemotherapy. Bare metal stent was done on 07/15/2016. SOCIAL HISTORY: History of tobacco abuse, quit after diagnosed with lung CA. Denies any history of alcohol abuse. CURRENT MEDICATIONS: The patient at home was taking Keppra, Cardizem 180, sildenafil, Revatio, folic acid, Plavix 75 mg daily, atorvastatin, atenolol, and amiodarone 200 mg for paroxysmal atrial fibril lation. REVIEW OF SYSTEMS: As per HPI. PHYSICAL EXAMINATION: VITAL SIGNS: Temperature afebrile, heart rate 85, blood pressure 109/39. HEENT: PERRLA. Extraocular muscles intact. NECK: Supple. No carotid bruits. No thyromegaly. CHEST: Clear to auscultation. HEART: S1, S2 regular. ABDOMEN: Soft. EXTREMITIES: Clubbing, cyanosis negative. BLOOD WORKUP: WBC 4.____, hemoglobin 12.2, hematocrit 37.8, platelet count 273. Sodium 140, potassi um 4.____, chloride 103, carbon dioxide 26, anion gap of 18, BUN 9, creatinine 0.9. Troponin 0.02, n egative. IMPRESSION: Chest pain, atypical, possible supraventricular tachycardia; history of paroxysmal atria l fibrillation, history of mitral regurgitation, history of tricuspid regurgitation, history of bare metal stent 07/2016, pulmonary hypertension. RECOMMENDATION: Resume back amiodarone. Resume back aspirin and Plavix. Resume back Cardizem. Res ume back atenolol. If any point the patient needs to stop, Plavix can be stopped because of more olesya n 1 month passed. That was reason main the bare metal stent was placed. Will follow with you. Thank you, Dr. Gomez/Dr. Singh, for providing the opportunity in taking care of the patient. Wi ll repeat another/third set of troponin in the morning ____. Serenity Maguire MD cc: [id number] TT: 09/23/2016 11:58:21 Confirmation # [id number] Dictation # [id number] mn
--- NOTE | 2016-09-23 19:20 | PN ---
DATE: 09/23/2016 REFERRING PHYSICIAN: Dr. Longoria. SUBJECTIVE: She is lying in the bed. Feels much better. Decreased cough, decreased shortness of br eath. No nausea, no vomiting or diarrhea. No leg pain or leg swelling. OBJECTIVE: GENERAL: No acute distress. VITAL SIGNS: Temperature is 98, heart rate is 83, respiratory rate is 20, blood pressure 94/51, puls e ox 90% on 3 liters nasal cannula. HEENT: Moist mucous membranes. Crowded airway. Mallampati score is 4. NECK: Supple. No JVD. LUNGS: Have scattered rhonchi with a few wheezing. HEART: S1, S2. ABDOMEN: Soft, nontender. No organomegaly. EXTREMITIES: There is no edema. NEUROLOGIC: Awake, alert, follows simple command. MEDICATIONS: She is on Brovana 15 mcg inhaled twice a day, amiodarone 200 mg daily, Dilantin 100 mg daily, doxycycline 100 mg twice a day, vitamin D 50,000 units q. 7 days, Ecotrin 81 mg daily, folic a angelina 1 mg daily, Keppra 500 mg twice a day, Lasix 20 mg IV q. 12 hours, Neurontin 300 mg at bedtime, P ulmicort inhaled twice a day, Revatio 20 mg q. 8 hours, Robitussin 5 mL q. 6 hours p.r.n., Solu-Medro l 20 mg q. 8 hours, Spiriva 1 capsule inhaled daily, Tenormin 25 mg daily, Xopenex inhaler 3 times a day. LABORATORY DATA: Reviewed. Shows sodium 143, potassium 4.1, chloride 103, bicarbonate 26, BUN 9, cr eatinine 0.9, glucose 185, calcium is 8.9. AST 39, ALT 42, alkaline phosphatase is 186, albumin is 3 .7. She had EKG done today which shows normal sinus rhythm. IMPRESSION AND PLAN: Exacerbation of chronic obstructive lung disease probably secondary to seasonal allergies, has a history of pulmonary hypertension; unresectable lung cancer, received radiation the rapy, been on chemotherapy; seizure disorder, history of atrial fibrillation, coronary artery disease , history of coronary stent, sleep apnea syndrome. From pulmonary point of view, she is improved. W ill continue Solu-Medrol, inhaled bronchodilators and doxycycline. Encourage CPAP use. Her Lasix wa s discontinued and Revatio restarted. She may get some leg swelling secondary to vasodilation effect of Revatio. Her blood pressure is low; will not suggest diuretics. Will discussed with cardiology and PMD. Thank you, and will follow with you. Serenity Martinez MD cc: [id number] TT: 09/23/2016 19:20:33 Confirmation # [id number] Dictation # [id number] mn
[2016-09-24] MEDS: guaiFENesin-Codeine 100-10mg/5ml Syrup (5 ml) UD PO PRN ×2 (00:25→07:39)
[2016-09-24] MEDS: Sildenafil 20 MG TAB PO SCH ×2 (07:38→14:14)
[2016-09-24] MEDS: MethylPREDNISolone 40 mg Vial IVP SCH ×2 (07:47→14:04)
[2016-09-24] MEDS: Budesonide 0.5 mg/2 ml Inhal Susp UD IH SCH (08:45)
[2016-09-24] MEDS: Arformoterol 15 mcg/2 ml Inh Sol IH SCH (08:45)
[2016-09-24 08:46] LABS: ALB/GLOB RATIO 1.2 (1.1-1.8); ALKALINE PHOSPHATASE 168 U/L (38-133); ALT/SGPT 41 U/L (7-56); AST/SGOT 22 U/L (15-39); BILIRUBIN,TOTAL 0.5 mg/dL (0.2-1.3); BLOOD UREA NITROGEN 14 mg/dL (7-21); CALCIUM 9.6 mg/dL (8.4-10.5); CARBON DIOXIDE 32 mmol/L (21-33); CHLORIDE 98 mmol/L (98-107); GFR AFRICAN-AMERICAN > 60; GLUCOSE,RANDOM 114 mg/dL (70-110); PHOSPHOROUS 3.6 mg/dL (2.5-4.5); POTASSIUM 4.7 mmol/L (3.6-5.0); SODIUM 141 mmol/L (132-148); TOTAL PROTEIN 7.2 g/dL (5.8-8.3)
[2016-09-24 09:01] LABS: TROPONIN I < 0.01 ng/mL
--- NOTE | 2016-09-24 09:59 | DS ---
The patient was admitted for heart palpitation with EKG with sinus tachycardia. In Emergency Room, her condition improved. The patient also complained of increase of productive cough and exertional shortness of breath. The patient is feeling much better. She continues with some dry cough, but denies any shortness of breath, denies palpitations, or chest pain. PHYSICAL EXAMINATION: VITAL SIGNS: Stable. Temperature 97.8, pulse 84 regular, blood pressure 101/63 , respiratory rate 18. Her oxygen saturation is 95% on 3 liters of nasal cannula. GENERAL: The patient is comfortable, sitting in bed, alert, awake, oriented. HEENT: Head is normocephalic, atraumatic. Eyes with pupils reactive to light. No jaundice. Oral mucosa is moist. NECK: Supple. LUNGS: With decreased breath sounds, but no rales, crackles, or wheezing. HEART: With regular rhythm, rate of 80 per minute. ABDOMEN: Soft, nontender, nondistended. Bowel sounds are positive. EXTREMITIES: With no edema. NEUROLOGIC: Normal. EKG yesterday showed normal sinus rhythm. No ST-T changes. Comprehensive panel this morning: Normal electrolytes. Her troponin 4 sets were negative. Her BNP improved. ASSESSMENT: 1. Right cardiomyopathy with chronic congestive heart failure, hemodynamically stable. 2. Sinus tachycardia with improved rate. 3. Exacerbation of chronic obstructive pulmonary disease. 4. Severe pulmonary hypertension. 5. Left lower lung cancer. PLAN OF TREATMENT: The patient will be discharged home today. The patient will resume her chronic medications: Amiodarone, Brovana, Dilantin, Keppra, aspirin, Neurontin, sildenafil, Spiriva, and Tenormin. The patient will be maintained on prednisone, weaning off dose over the next 3 or 4 days. The patient will continue heart-healthy diet. The patient was advised to follow up with primary care doctor next week. Keira Keith MD cc: [id number] TT: 09/24/2016 09:58:54 jn MTDD
--- NOTE | 2016-09-24 10:29 | PN ---
DATE: 09/24/2016 REASON FOR CONSULTATION AND FOLLOWUP: Chest pain, palpitations. BRIEF CLINICAL HISTORY: A 61-year-old female with past medical history significant for lung CA, now probably COPD, SVT, paroxysmal atrial fibrillation, mitral and tricuspid regurgitation, admitted with palpitation and chest pain, history of coronary artery disease, status post PTCA of RCA, a bare meta l stent on 07/15/2016, no evidence of acute coronary syndrome, troponin remains negative and patient i s in normal sinus. PHYSICAL EXAMINATION: VITAL SIGNS: Temperature afebrile, heart rate 79, blood pressure 101/63. HEENT: PERRLA. Extraocular muscles intact. NECK: Supple. No carotid bruits. No thyromegaly. CHEST: Clear to auscultation. HEART: S1, S2 regular. ABDOMEN: Soft. EXTREMITIES: Clubbing and cyanosis negative. LABORATORY DATA: Blood workup as follows: WBC 4.6, hemoglobin 12.2, hematocrit 37.8, platelet count 273. Chemistry shows sodium , potassium 4.7, chloride 98, carbon dioxide , anion gap of 1 6, BUN 14, creatinine 0.9. Troponin 0.01 x 4 negative. IMPRESSION: No evidence of acute coronary syndrome, atrial fibrillation, preserved left ventricular function, paroxysmal atrial fibrillation, supraventricular tachycardia, obesity, lung cancer, inopera ble, left lung adenocarcinoma, on chemo and radiation, mitral regurgitation, severe tricuspid regurgi tation. RECOMMENDATION: Continue amiodarone, continue aspirin, continue Plavix, continue Cardizem, continue atenolol. Plavix can be stopped if needed, but will get the benefit if continues, but not mandatory because the bare metal stent was almost 2 months and recommendation is patient can be stopped after 1 month if needed. Discussed with the patient. We will discontinue telemetry. We will follow with sveta elizondo. Thank you, Dr. Gomez, for providing the opportunity in taking care of patient. We will discontinue Plavix and continue aspirin. We will follow with you. Serenity Maguire MD cc: [id number] TT: 09/24/2016 10:28:46 Confirmation # [id number] Dictation # [id number] rn
[2016-09-24] MEDS: Tiotropium 18 mcg Cap For Inhalation IH SCH (11:18)
--- NOTE | 2016-09-24 11:28 | CARD ---
APPROVED REPORT EKG Measurement Heart [id number] <Conclusion> Sinus rhythm with premature supraventricular complexes Otherwise normal ECG
[2016-09-24 14:11] VITALS: BP 105/72; PULSE 76; RESP 20; TEMP 97.6
--- NOTE | 2016-09-25 00:23 | PN ---
DATE: 09/24/2016 REFERRING PHYSICIAN: . SUBJECTIVE: Feels much better. No headache, no rhinitis. Tolerating CPAP well. No nausea, no vomi ting, diarrhea. No leg pain or leg swelling. OBJECTIVE: GENERAL: In no acute distress. VITAL SIGNS: Temp is 98, heart rate 76, respiratory rate is 20, blood pressure 105/72, pulse ox 94% on nasal cannula. HEENT: Moist mucous membranes. NECK: Supple. No JVD. LUNGS: Have a fair airflow with few rhonchi. HEART: S1, S2. ABDOMEN: Soft, nontender. No organomegaly. EXTREMITIES: There is no edema. NEUROLOGIC: Awake, alert, follows simple command. MEDICATIONS: Reviewed. No new changes reported in medications since yesterday. LABORATORY DATA: Shows sodium 141, potassium 4.7, chloride 98, bicarbonate 32, BUN 14, creatinine 0. 9, glucose 114, calcium 9.6, phosphorus 2.6, magnesium 2.0, total bilirubin 0.5, AST 22, ALT 41, justo line phosphatase is 168, troponin less than 0.01. ProBNP 3530, albumin is 3.9. IMPRESSION AND PLAN: Exacerbation of chronic obstructive lung disease, probably secondary to seasona l allergies, pulmonary hypertension, unresectable lung cancer. There has been no radiation therapy, on chemotherapy, seizure disorder, history of atrial fibrillation, coronary artery disease, history o f coronary stent, sleep apnea syndrome. Being discharged home today. Advised patient to take Revati o 25 mg twice a day. If blood pressure stays above 100, may increase to 3 times a day, only taking L asix as needed. Basically, if there is no leg swelling, try to avoid Lasix. Encourage CPAP use, ___ __ inhaled bronchodilator. Will follow with you. Serenity Martinez MD cc: [id number] TT: 09/25/2016 00:22:47 Confirmation # [id number] Dictation # [id number] mn
== END 2016-09-24 18:39 | disposition home or self-care (01) | DRG 191 ==
LOC: ED 05:13 → EROBSV 08:07 → ERH 08:19 → 2RSO 09:50 → OBSVTOIN 09-23 12:39
PROVIDERS: ADMIT Family Medicine; ATTEND Family Medicine
PROC: 3E0F7GC Introduction of Other Therapeutic Substance into Respiratory Tract, Via Natural or Artificial Opening (ICD-10-PCS; 2016-09-22)
PROC: 5A09457 Assistance with Respiratory Ventilation, 24-96 Consecutive Hours, Continuous Positive Airway Pressure (ICD-10-PCS; principal; 2016-09-23)
DX: J44.1 Chronic obstructive pulmonary disease with (acute) exacerbation (principal); C34.90 Malignant neoplasm of unspecified part of unspecified bronchus or lung; I27.2 Other secondary pulmonary hypertension; I42.9 Cardiomyopathy, unspecified; I11.0 Hypertensive heart disease with heart failure; I50.9 Heart failure, unspecified; J45.909 Unspecified asthma, uncomplicated; I47.1 Supraventricular tachycardia; R07.9 Chest pain, unspecified; I25.10 Atherosclerotic heart disease of native coronary artery without angina pectoris; E78.5 Hyperlipidemia, unspecified; K21.9 Gastro-esophageal reflux disease without esophagitis; G40.909 Epilepsy, unspecified, not intractable, without status epilepticus; I48.0 Paroxysmal atrial fibrillation; I08.1 Rheumatic disorders of both mitral and tricuspid valves; Z92.3 Personal history of irradiation; Z95.5 Presence of coronary angioplasty implant and graft; Z87.891 Personal history of nicotine dependence

== ENCOUNTER 2016-10-17 10:27 | Inpatient (IN) | payer MEDICARE, MEDICAID ==
[2016-10-17] MEDS: MethylPREDNISolone 40 mg Vial IV SCH (22:00)
[2016-10-17] MEDS ORDERED: DOBUTamine 500mg/250ml D5W 500 MG/250 ML BAG IV PRN (22:25)
--- NOTE | 2016-10-17 23:20 | HP ---
CHIEF COMPLAINT: Fever, productive cough and shortness of breath for 1 day. HISTORY OF PRESENT ILLNESS: A 61-year-old female with history of COPD, left lower lung cancer, pulmonary hypertension, coronary artery disease, who was brought to Emergency Room by ambulance after developed new onset of fever, generalized weakness and shortness of breath. The patient was complaining of not feeling well through the night. The patient started coughing, cough productive of yellow and green mucus. In the morning, she developed chills. Her symptoms progressed despite use of nebulizer at home. The patient came for evaluation to the Emergency Room. PAST MEDICAL HISTORY: Significant for COPD, pulmonary hypertension, coronary artery disease, history of atrial fibrillation and episodes of SVT, left lower lung cancer, history of seizures.PVD. PAST SURGICAL HISTORY: History of benign brain tumor excised in 2013. CURRENT MEDICATIONS: Keppra 500 mg twice a day, Dilantin twice a day, gabapentin, Cardizem 120 mg daily, metoprolol 12.5 mg twice a day, atorvastatin 40 mg daily, sildenafil 20 mg twice a day. ALLERGIES: The patient has known allergy to SYED, but no allergies to medication. FAMILY HISTORY: Noncontributory. SOCIAL HISTORY: History of smoking for the past 30 years. She quit 8 months ago. The patient denies any alcohol or drug use. The patient is . She lives with her family. The patient is independent of activities of daily living. REVIEW OF SYSTEMS: She complains of fever for 1 day. She denies any loss of appetite or weight loss. She denies any sore throat or dysphagia. Complaining of cough productive of yellow sputum. Complaining of wheezing. Complaining of some chest pain this morning. She denies any heart palpitation or diaphoresis. Denies any abdominal pain, nausea, vomiting, diarrhea or constipation. The patient denies any dysuria, flank pain, hematuria. She denies any muscle pain. She denies any headache, sensory or motor weakness. She denies any blurry vision. She denies any anxiety, depression or suicidal thoughts. PHYSICAL EXAMINATION: VITAL SIGNS: Significant for a temperature of 101.4 in the Emergency Room, blood pressure low at 96/65, respiratory rate 20-25 and pulse 100, regular. GENERAL: She is comfortable with the BiPAP machine. She is alert, awake, oriented. HEAD: Normocephalic, atraumatic. EYES: Pupils reactive to light. Oral mucosa is slightly dry. NECK: Supple. No neck masses, no JVD. LUNGS: Significant for decreased breath sounds and some crackles in the base bilaterally. HEART: With regular rhythm, rate of 100 per minute. ABDOMEN: Soft, nontender, nondistended. EXTREMITIES: With no edema, cyanosis or clubbing. DIAGNOSTIC TESTS: Significant for CBC with WBC 7.5, hemoglobin 10.7, hematocrit 32.9, platelet count 192,000. Her CMP significant for elevated LDH of 4.9. BNP 4200. Her troponin was 0.17. Her electrolytes were stable. Her renal function was normal with BUN 12, creatinine 0.9. Chest x-ray showed possible right lower lobe infiltration. Her EKG showed sinus tachycardia, nonspecific ST-T changes. ASSESSMENT: 1. A 61-year-old female with new onset of fever, productive cough and shortness of breath with elevated lactic acid and hypotension. Must rule out sepsis. 2. Right lower lobe pneumonia. 3. Exacerbation of chronic obstructive pulmonary disease. 4. History of left lower lung cancer, undergoing chemotherapy monthly. PLAN OF TREATMENT: The patient was admitted to intensive care unit. She is presently treated with BiPAP. Septic workup was done in Emergency Room. The patient was started on IV antibiotics. We will continue Solu-Medrol, nebulizer treatment. Stained Glass Artist and infectious disease specialist will be called for consult. Keira Keith MD cc: [id number] TT: 10/17/2016 23:19:49 ln MTDD
--- NOTE | 2016-10-17 23:49 | CON ---
DATE: 10/17/[address] Gomez, her consult. CHIEF COMPLAINT: Shortness of breath, hypotension. HISTORY OF PRESENT ILLNESS: The patient is a 61-year-old female who sees Dr. Gomez for stage IIIB nonsmall cell CA of the lung, status post recent chemotherapy with hypotensive blood pressures noted with IV hydration given with good effect. This morning, her daughter called reporting that her mothe r was having shortness of breath and feeling worse with nonspecific findings, weakness. She was advi sed to come to the Emergency Room, which was done, with Dr. Singh then admitting the patient to [facility] intensive care unit after the Emergency Room director, Dr. Jaime, noted the patient had a positiv e finding on her chest x-ray significant for pneumonia. At present, patient is resting comfortably in the intensive care unit with oxygen on with the patient in no acute distress at this point with BiPAP also on. ALLERGIES: SYED, no medicines. MEDICATIONS: Include Brovana, Cardizem, amiodarone, Dilantin, Ecotrin, Keppra, Lasix, Lipitor, metop rolol, Pepcid, Plavix, Revatio, Robitussin with codeine, Tylenol. 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 Her nonsmall cell CA is unresectable, status post chemoradiation, on m aintenance chemotherapy. Seizure disorder. Also, status post bare metal stenting for significant cor onary artery stenosis with the patient on continuous oxygen. FAMILY HISTORY AND SOCIAL HISTORY: Positive smoker 1 pack a day for 40 years, quit 1 year ago. Quoc es alcohol or drug use. Lives with her daughter and family. Otherwise, noncontributory. REVIEW OF SYSTEMS: Essentially negative to questioning except as above. PHYSICAL EXAMINATION: VITAL SIGNS: From the written sheets, as the patient's computer profile is not up yet, as the system was down all day today. Her labs are not available; however, these were reviewed with Dr. Singh and Dr. Jaime, Emergency Room director, with the values monitored. Her most recent labs from 09/22 showed white blood cell count of 4.6, hemoglobin 12.2, hematocrit of 37.8, platelet count of 27 3,000 with a chem metabolic panel from yesterday showing a normal chem panel except for chloride of 9 7 with a random glucose of 130 with an otherwise normal chem metabolic panel. Her most recent CEA va lue in the computer was 2.4 from 10/2015. The patient did have a Gram stain of her sputum done yesterday, showing normal roberta. Blood cultures were done 2 days prior and there was no growth at 5 days. Her chest x-ray report is not available; however, it was read as right lower lobe infiltrate by Dr. Larry israel. 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 Otherwise, atherosclerotic cardiovascular disease with bare metal stents, coronary artery disease. PLAN: The patient is to continue antibiotics as per Dr. Singh's recommendations. We will monitor clinically and with labs with BiPAP on. Her hypotensive episode is now improved with treatment as i ndicated in that respect. We will monitor clinically and with labs. It should be noted that the hard copy of these findings is available as the computer system was down today. Aaron Valadez MD cc: [id number] TT: 10/17/2016 23:48:09 Confirmation # [id number] Dictation # [id number] ln
[2016-10-18 00:21] LABS: ARTERIAL BLOOD GAS HCO3 22.9 mmol/L (21-28); ARTERIAL BLOOD GAS O2 CAPACITY 13.3 mL/dl (16-24); ARTERIAL BLOOD GAS O2 CONTENT 13.2 ML/dl (15-23); HHB 0.4 % (0-5); METHEMOGLOBIN 0.6 % (0.0-3.0)
[2016-10-18 01:53] LABS: ADD MANUAL DIFF? NO
[2016-10-18] MEDS: Albuterol-Ipratrop 3 mg / 0.5 (3 ml) UD IH SCH ×2 (02:15→07:20)
[2016-10-18] MEDS ORDERED: Morphine 2 mg/ml ISec IVP STA ×2 (04:45→05:42)
[2016-10-18] MEDS ORDERED: Morphine 2 mg/ml ISec ONE ×2 (05:16→05:49)
[2016-10-18] MEDS: MethylPREDNISolone 40 mg Vial IV SCH ×3 (06:34→22:42)
[2016-10-18 07:17] LABS: ADD MANUAL DIFF? NO
[2016-10-18 07:22] LABS: GRAN # 5.48 (1.4-6.5); GRAN % 83.5 % (50.0-68.0); HEMATOCRIT 30.8 % (36.0-48.0); LYMPH # 0.2 (1.2-3.4); LYMPH % 3.5 % (22.0-35.0); MEAN CELL VOLUME 90.3 fL (80.0-105.0); MEAN CORPUSCULAR HEMOGLOBIN 29.6 pg (25.0-35.0); MEAN CORPUSCULAR HGB CONC 32.8 g/dl (31.0-37.0); MEAN PLATELET VOLUME 9.5 fl (7.0-11.0); MONO # 0.9 (0.1-0.6); PLATELET COUNT 158 10^3/uL (120.0-450.0); RED CELL DISTRIBUTION WIDTH 16.1 % (11.5-14.5); WHITE BLOOD COUNT 6.6 10^3/ul (4.5-11.0)
[2016-10-18 08:14] LABS: ALKALINE PHOSPHATASE 262 U/L (38-133); ALT/SGPT 45 U/L (7-56); AST/SGOT 58 U/L (15-39); BILIRUBIN,TOTAL 0.9 mg/dL (0.2-1.3); BLOOD UREA NITROGEN 16 mg/dL (7-21); CALCIUM 8.6 mg/dL (8.4-10.5); CARBON DIOXIDE 25 mmol/L (21-33); CHLORIDE 104 mmol/L (98-107); GFR AFRICAN-AMERICAN > 60; GLUCOSE,RANDOM 170 mg/dL (70-110); MAGNESIUM 2.1 mg/dL (1.7-2.2); PHOSPHOROUS 3.4 mg/dL (2.5-4.5); POTASSIUM 4.4 mmol/L (3.6-5.0); SODIUM 139 mmol/L (132-148); TOTAL PROTEIN 6.6 g/dL (5.8-8.3)
--- NOTE | 2016-10-18 08:17 | CON ---
DATE: 10/17/2016 REFERRING PHYSICIAN: Dr. Longoria. REASON FOR CONSULT: Respiratory failure with CO2 retention. 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 On arrival in the ER, she was short of breath, has a cough from the last 2-3 days, could not sleep well, claimed to be complian t with CPAP at home. Lab workup shows CO2 retention, hypoxemia. She is placed on noninvasive ventil ation, given steroids, antibiotics and inhaled bronchodilator. Presently, she is in the intensive ca re unit on BiPAP, feels better, decreased cough, decreased shortness of breath. No nausea, no vomiti ng, diarrhea. No leg pain or leg swelling. PAST MEDICAL HISTORY: As per history of present illness. SOCIAL HISTORY: Recently stopped smoking. FAMILY HISTORY: Positive for chronic lung disease. ALLERGIES: No medication allergies. MEDICATIONS: She is placed on Solu-Medrol, received vancomycin and Ceftin, also Zithromax was given, DuoNeb q. 6 hours, Solu-Medrol 40 mg q. 8 hours, DuoNeb q. 6 hours, heparin 5000 units subQ q. 8 ho urs, Protonix 40 mg daily. REVIEW OF SYSTEMS: No headache, no rhinitis, cough, shortness of breath. No chest pain, no nausea, no vomiting, no diarrhea. No dysuria. No leg pain or leg swelling. PHYSICAL EXAMINATION: GENERAL: Lying in the bed on BiPAP, in [id number] distress secondary short of breath. VITAL SIGNS: Temperature T-max 101, heart rate is 112, respiratory rate is 20, blood pressure 90/46, pulse ox 95% on BiPAP with supplemental oxygen. HEENT: Moist mucous membranes. Crowded airway. Mallampati score is 4. NECK: Supple. No JVD. LUNGS: Has bilateral expiratory wheezing. HEART: S1, S2. ABDOMEN: Soft, nontender. No organomegaly. EXTREMITIES: There is no edema. NEUROLOGIC: Awake, alert, follows simple commands. LABORATORY DATA: ABG showed pH 7.32, pCO2 of 49, O2 62 that was on room air. Hemoglobin 10.7, hemat ocrit 32.9, WBC 7.25, platelet count is 192. Sodium 138, potassium 3.8, chloride 100, bicarbonate is 27, calcium 8.5. CPK total is 54, ALT is ____, magnesium 1.9, phosphorus 2.9. Troponin 0.017. EKG shows sinus rhythm. IMPRESSION AND PLAN: Respiratory failure with exacerbation of chronic obstructive lung disease, hist ory of atrial fibrillation, unresectable lung cancer, sleep apnea syndrome, seizure disorder. Case d iscussed with Dr. Vaughan, continue present care. Continue BiPAP. Keep head at 45 degree, IV and i nhaled bronchodilator, antibiotics. Gastric prophylaxis, anticoagulation. Follow up ABG, chest x-ra y, CBC in the morning. Critical care time more than 35 minutes. Thank you and will follow with you. Serenity Martinez MD cc: [id number] TT: 10/17/2016 18:50:59 Confirmation # [id number] Dictation # [id number] dio
[2016-10-18] MEDS ORDERED: Vancomycin 1gm in NS 250ml 1 GM/250 ML BAG IVPB STA (08:30)
[2016-10-18] MEDS ORDERED: Levalbuterol 1.25 MG/3 ML Inhal Soln UD IH PRN (09:08)
[2016-10-18 09:22] LABS: INR 1.04 (0.93-1.08); PARTIAL THROMBOPLASTIN TIME 29.9 Seconds (23.7-30.8)
[2016-10-18] MEDS: Azithromycin 500MG/NS 250ml 500 MG/250 ML BAG IVPB SCH (09:29)
--- NOTE | 2016-10-18 09:31 | PN ---
DATE: 10/18/2016 The patient remains in intensive care unit. The patient is feeling much better this morning. She denies any shortness of breath. She is tolerating nasal cannula with oxygen saturations in mid-90s. She continues with a productive cough. The patient developed sinus tachycardia overnight and got 1 dose of Cardizem IV this morning. PHYSICAL EXAMINATION: VITAL SIGNS: Stable. Her blood pressure is 99/62. Her heart rate is 124 regular, respiratory rate 21, and she is afebrile with temperature 98. GENERAL: She is comfortable in bed, alert, awake, oriented. HEENT: Head is normocephalic, atraumatic. Oral mucosa is moist. NECK: Supple. LUNGS: With decreased breath sounds and crackles in the base bilaterally. HEART: With tachycardia, heart rate of 120 per minute. ABDOMEN: Soft, nontender, nondistended. EXTREMITIES: With no edema and full range of motion. DIAGNOSTIC TESTS: This morning, her CBC with WBC 6.6, hemoglobin 10.1, hematocrit 30.8. Chemistry with normal electrolytes. Random glucose elevated at 170. Her blood gas showed pH 7.4, pCO2 of 37, pO2 162, oxygen sat was 99% on 60% FIO2. Her EKG shows sinus tachycardia with heart rate of 110 per minute , some nonspecific ST-T changes. Her chest x-ray is still pending. ASSESSMENT: 1. Sepsis with right lower lobe pneumonia. 2. Sinus tachycardia, possibly induced by dobutamine. 3. Hypertension. 4. Exacerbation of chronic obstructive lung disease. 5. Left lower lung cancer. PLAN OF TREATMENT: The patient's heart rate will be monitored. Cardizem IV was given. The patient will be restarted on Cardizem p.o. and atenolol. Will continue IV antibiotic as per ID recommendation. Follow up chest x-ray report. Continue nebulizer treatment and steroids. DVT prophylaxis wit heparin. Keira Keith MD cc: [id number] TT: 10/18/2016 09:31:07 Confirmation # [id number] Dictation # [id number] simran ALVARADO
[2016-10-18] MEDS: Cefepime 1gm in NS 100ml 1 GM/100 ML BAG IVPB SCH ×3 (09:37→22:41)
--- NOTE | 2016-10-18 09:51 | RAD ---
HISTORY: intubated COMPARISON: 09/22/2016 FINDINGS: LUNGS: No active pulmonary disease. PLEURA: No significant pleural effusion identified, no pneumothorax apparent. CARDIOVASCULAR: Normal. OSSEOUS STRUCTURES: No significant abnormalities. VISUALIZED UPPER ABDOMEN: Normal. OTHER FINDINGS: Right-sided Port-A-Cath IMPRESSION: No active disease.
[2016-10-18] MEDS ORDERED: Sildenafil 20 MG TAB PO SCH (10:00)
[2016-10-18] MEDS ORDERED: diltiaZEM 180 mg/24 Hours CD Cap PO SCH (10:00)
--- NOTE | 2016-10-18 11:27 | CON ---
DATE: 10/18/2016 REASON FOR CONSULTATION: A-fib with rapid ventricular rate. Chest pain, on Dobutrex. BRIEF CLINICAL HISTORY: A 61-year-old female with a past medical history significant for coronary artery disease, lung CA, inoperable, admitted with cough, shortness of breath baseline with sinus tachycardia 102, started on Dobutrex. The patient went into early this morning A-fib with rapid ventricular rate with chest pain, heart rate 160 with tachycardia, blood pressure 90, complaining of some chest discomfort associated with palpitation. PAST MEDICAL HISTORY: Significant for lung CA, inoperable; COPD, SVT, paroxysmal atrial fibrillation, mitral regurgitation, tricuspid regurgitation, history of PTCA, bare metal stents 07/15/2016. Admitted with cough, fever and shortness of breath at this time. Recent cardiac workup as follows: The patient had echocardiography 07/11/2016, ejection fraction 65-70%, dilated RV and LA, right ventricle severely dilated, systolic function of RV severely reduced, mitral regurg is severe, severe tricuspid regurgitation, RV systolic pressure of 123, severe pulmonary hypertension. Following this, the patient underwent a cardiac catheterization dated 07/15/2016 that revealed normal LV function, ejection fraction 55%, left main essentially free of significant disease, bifurcates into LAD and circumflex. LAD was without significant disease. Circumflex with diffuse calcification 30-40% stenosis. RCA is 80-90% stenosis in the proximal RCA where a bare metal stent was done. Right heart catheterization revealed RA 10- 12. RV 60/10, PA 60/27, mean PA 38, pulmonary capillary wedge pressure 13, cardiac output 3.83. Cardiac index 2.9, pulmonary vascular resistance 6.82 which is consistent with pulmonary hypertension. Right heart catheterization was done ____ after discontinuing Primacor. Successful PTCA of RCA with bare metal stent was done. Bare metal was done because of short duration dual antiplatelet therapy as patient is on radiation and chemo for lung CA. SOCIAL HISTORY: History of tobacco abuse, history of stopped smoking after lung CA was diagnosed. CURRENT MEDICATIONS: At home, the patient was taking Keppra, Cardizem, Revatio , ____, phenytoin, gabapentin, folic acid, Plavix, amiodarone, atenolol 200 mg. REVIEW OF SYSTEMS: As per HPI. PHYSICAL EXAMINATION: VITAL SIGNS: Temperature afebrile, heart rate 170, blood pressure 90/60. HEENT: PERRLA. Extraocular muscles intact. NECK: Supple. No carotid bruits. No thyromegaly. CHEST: Clear to auscultation. HEART: S1, S2 regular. ABDOMEN: Soft. EXTREMITIES: Clubbing and cyanosis negative. Admitting EKG showed sinus tachycardia at 106. Now, the patient is in A-fib with rapid RVR. IMPRESSION: Chronic obstructive pulmonary disease exacerbation, bronchitis, new onset of atrial fibrillation/flutter possibly secondary to Dobutrex, which was statred possibly for RV dysfunction, lung cancer, inoperable, chronic obstructive pulmonary disease, mitral regurgitation, severe tricuspid regurgitation. Lung cancer, inoperable, on chemotherapy. RECOMMENDATION: We will discontinue Dobutrex. We will give a stat dose of IV verapamil 2 doses, monitor and will put back on a low-dose beta-parrish as tolerated and Cardizem, verapamil, what the patient was taking resume. Monitor closely. The patient was at one point anticoagulation because of paroxysmal atrial fibrillation. We will look if the patient needs long-term anticoagulation. Thank you, Dr. Singh, for providing us the opportunity in taking care of the patient. We will hold sildenafil and large dose of Cardizem because the patient is on the low side. Once the patient is stabilized, we will resume back medication. Serenity Maguire MD cc: [id number] TT: 10/18/2016 11:26:17 Confirmation # [id number] Dictation # [id number] artur MTDD
[2016-10-18] MEDS: Sildenafil 20 MG TAB PO SCH ×2 (11:33→18:02)
[2016-10-18] MEDS ORDERED: Sodium Chloride 0.9% 500 ML IV STA (11:52)
--- NOTE | 2016-10-18 11:56 | CP.PCM.CON ---
History of Present Illness - History of Present Illness History of Present Illness: 61 year old female with PMH of stage3 IIIB non-small cell lung cancer S/P chemotherapy, COPD, atrial fibrillation, peripheral vascular disease S/P femoral stenting, benign brain tumor S/P removal in 2013, seizure disorder, pulmonary HTN, CAD S/P PCI, chronic CHF came in to [facility] because of increasing shortness of breath and generalized weakness for the past 3-4 days. The patient also is having cough productive of clear phlegm. She denies fever or chills, no nausea or vomiting, no chest pain, no headache or dizziness, no blurring of vision, no abdominal pain, no diarrhea, no dysuria. CXR done did not show infiltrates. Infectious diseases consult is requested to further evaluate and manage. Review of Systems - Review of Systems All systems: reviewed and no additional remarkable complaints except (as per HPI ) Past Patient History - Infectious Disease Hx of Infectious Diseases: None - Tetanus Immunizations Tetanus Immunization: Unknown - Past Medical History & Family History Past Medical History?: Yes - Past Social History Smoking Status: Former Smoker - CARDIAC Hx Cardiac Disorders: Yes Hx Congestive Heart Failure: Yes Hx Hypertension: Yes - PULMONARY Hx Chronic Obstructive Pulmonary Disease (COPD): Yes Other/Comment: uses cpap at home - NEUROLOGICAL HX Cerebrovascular Accident: No - HEENT Hx HEENT Problems: Yes (eyeglasses) Hx Blind: No Hx Cataracts: No Hx Deafness: Yes (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 ear) Hx Epistaxis: No Hx Glaucoma: No Hx Macular Degeneration: No Other/Comment: ringing in ears - RENAL Hx Renal Failure: No - ENDOCRINE/METABOLIC Hx Diabetes Mellitus Type 1: No Hx Diabetes Mellitus Type 2: No Hx Hypothyroidism: No - HEMATOLOGICAL/ONCOLOGICAL Hx Blood Disorders: Yes Hx Anemia: Yes (blood transfusion) Hx Cancer: Yes (lung dx 04/2016) Hx Chemotherapy: Yes (and radiation) Other/Comment: uterine ca over yrs ago - INTEGUMENTARY Hx Dermatological Problems: No Hx Basil Cell: No Hx Eczema: No Hx Melanoma: No Hx Psoriasis: No Hx Squamous Cell: No - MUSCULOSKELETAL/RHEUMATOLOGICAL Hx Falls: No - GASTROINTESTINAL Hx Gastrointestinal Disorders: Yes (gastritis) Hx Colostomy: No Hx Crohn's Disease: No Hx Diverticulitis: No Hx Gall Bladder Disease: Yes Hx Gastroesophageal Reflux: Yes Hx Ileostomy: No Hx Liver Failure: No Hx Pancreatitis: Yes HX Swallowing Problems: No Other/Comment: colonoscopy 02/2016 dx diverticulosis, ascending colon ulceration , colon polyp - GENITOURINARY/GYNECOLOGICAL Hx Genitourinary Disorders: Yes (cervical,uterine ca) Hx Hematuria: No Hx Incontinence: No Hx Sexually Transmitted Disorders: No Hx Urinary Tract Infection: No Other/Comment: hx fibroids had hyst due to fibroids - PSYCHIATRIC Hx Psychophysiologic Disorder: Yes Hx Anxiety: Yes Hx Bipolar Disorder: No Hx Depression: No Hx Emotional Abuse: No Hx Hallucinations: No Hx Panic Symptoms: No Hx Post Traumatic Stress Disorder: No Hx Psychosis: No Hx Physical Abuse: No Hx Schizophrenia: No Hx Sexual Abuse: No - SURGICAL HISTORY Hx Amputation: No Hx Appendectomy: No Hx Cardiac Catheterization: No Hx Cholecystectomy: Yes Hx Coronary Stent: Yes Hx Gastric Bypass Surgery: No Hx Hysterectomy: Yes Hx Joint Replacement: No Hx Kidney Transplant: No Hx Liver Transplant: No Hx Mastectomy: No Hx Musculoskeletal Surgery: No Hx Open Heart Surgery: No Hx Orthopedic Surgery: No Hx Splenectomy: No Hx Valve Replacement: No Other/Comment: polypectomy, r cw pac - ANESTHESIA Hx Anesthesia Reactions: No Hx Malignant Hyperthermia: No Meds Allergies/Adverse Reactions: Allergies Allergy/AdvReac Type Severity Reaction Status Date / Time diallo Allergy RASH Verified 08/15/16 00:27 - Medications Medications: Current Medications Amiodarone HCl (Cordarone) 200 mg PO DAILY [facility] Last Admin: 10/18/16 11:31 Dose: Not Given Aspirin (Ecotrin) 81 mg PO DAILY [facility] Last Admin: 10/18/16 09:30 Dose: 81 mg Atenolol (Tenormin) 12.5 mg PO BID [facility] Last Admin: 10/18/16 09:30 Dose: Not Given Atorvastatin Calcium (Lipitor) 40 mg PO DIN [facility] Clopidogrel Bisulfate (Plavix) 75 mg PO DAILY [facility] Last Admin: 10/18/16 11:33 Dose: 75 mg Folic Acid (Folic Acid) 1 mg PO DAILY [facility] Last Admin: 10/18/16 11:32 Dose: 1 mg Gabapentin (Neurontin) 600 mg PO [facility] PRN Reason: Protocol Heparin Sodium (Porcine) (Heparin) 5,000 units SC Q8 [facility] Last Admin: 10/18/16 06:33 Dose: 5,000 units Azithromycin (Zithromax 500mg In Ns) 500 mg in 250 mls @ 250 mls/hr IVPB DAILY [facility] Last Admin: 10/18/16 09:29 Dose: 250 mls/hr Dobutamine HCl/Dextrose (Dobutamine/Dextrose 5% 500mg/250ml) 500 mg in 250 mls @ 6.804 mls/hr IV .Q24H PRN; Protocol; 2.5 MCG/KG/MIN PRN Reason: TITRATE PER PROTOCOL Last Admin: 10/17/16 22:20 Dose: 6.804 mls/hr Cefepime HCl (Maxipime 1gm) 1 gm in 100 mls @ 100 mls/hr IVPB Q8 [facility] PRN Reason: Protocol Stop: 10/25/16 08:31 Last Admin: 10/18/16 09:37 Dose: 100 mls/hr Levalbuterol HCl (Xopenex) 1.25 mg IH [id number] PRN PRN Reason: Shortness of Breath Levetiracetam (Keppra) 500 mg PO BID [facility] Last Admin: 10/18/16 09:30 Dose: 500 mg Methylprednisolone (Solu-Medrol) 40 mg IV Q8 [facility] Last Admin: 10/18/16 06:34 Dose: 40 mg Pantoprazole Sodium (Protonix Inj) 40 mg IVP DAILY [facility] Last Admin: 10/18/16 09:29 Dose: 40 mg Phenytoin Sodium (Dilantin) 100 mg PO PCB [facility] Last Admin: 10/18/16 09:30 Dose: 100 mg Phenytoin Sodium (Dilantin) 200 mg PO HS [facility] Roflumilast (Daliresp) 500 mcg PO DAILY [facility] Last Admin: 10/18/16 11:33 Dose: 500 mcg Sildenafil Citrate (Revatio) 20 mg PO BID [facility] Last Admin: 10/18/16 11:33 Dose: 20 mg Verapamil HCl (Calan Tab) 40 mg PO TID [facility] Last Admin: 10/18/16 11:46 Dose: Not Given Verapamil HCl (Verapamil Inj) 2.5 mg IVP Q6H PRN PRN Reason: for heart rate >130 Zolpidem Tartrate (Ambien) 10 mg PO HS PRN PRN Reason: Insomnia Physical Exam - Constitutional Appears: Non-toxic, Other (mild shortness of breath at rest) - ENT Exam ENT Exam: Mucous Membranes Moist - Neck Exam Neck exam: Negative for: Lymphadenopathy, Meningismus - Respiratory Exam Respiratory Exam: Decreased Breath Sounds, Wheezes (diffuse, expiratory) - Cardiovascular Exam Cardiovascular Exam: +S1, +S2 - GI/Abdominal Exam GI & Abdominal Exam: Soft. absent: Tenderness Results - Vital Signs Recent Vital Signs: Last Vital Signs Temp Pulse 97 H 10/18/16 11:10 Resp 27 H 10/18/16 11:10 BP 87/64 L 10/18/16 11:00 Pulse Ox 93 L 10/18/16 11:10 - Labs Result Diagrams: 10/18/16 07:00 10/18/16 07:00 Labs: Laboratory Results - last 24 hr 10/18/16 10/18/16 07:00 07:00 WBC 6.6 D RBC 3.41 L Hgb 10.1 L Hct 30.8 L MCV 90.3 MCH 29.6 MCHC 32.8 RDW 16.1 H Plt Count 158 MPV 9.5 Gran % 83.5 H Lymph % (Auto) 3.5 L Aiken % (Auto) 13.0 H Eos % (Auto) 0.0 L Baso % (Auto) 0.0 Gran # 5.48 Lymph # 0.2 L Aiken # 0.9 H Eos # 0.0 Baso # 0.00 Sodium 139 Potassium 4.4 Chloride 104 Carbon Dioxide 25 Anion Gap 14 BUN 16 Creatinine 0.8 Est GFR ( Amer) > 60 Est GFR (Non-Af Amer) > 60 Random Glucose 170 H Calcium 8.6 Phosphorus 3.4 Magnesium 2.1 Total Bilirubin 0.9 AST 58 H ALT 45 Alkaline Phosphatase 262 H Total Protein 6.6 Albumin 3.3 Globulin 3.3 Albumin/Globulin Ratio 1.0 L Assessment & Plan - Assessment and Plan (Free Text) Plan: Assessment Acute hypoxic respiratory failure. probably COPD exacerbation, slowly improving stage3 IIIB non-small cell lung cancer S/P chemotherapy COPD atrial fibrillation peripheral vascular disease S/P femoral stenting benign brain tumor S/P removal in 2013 seizure disorder pulmonary HTN CAD S/P PCI chronic CHF obesity with BMI 33 Plan Started patient on a dose of IV Vancomycin, and started Cefepime and Zithromax Monitor clinical response
--- NOTE | 2016-10-18 11:58 | RAD ---
HISTORY: COMPARISON: No prior. FINDINGS: LUNGS: Patchy infiltrates are seen at the right lung base. PLEURA: No significant pleural effusion identified, no pneumothorax apparent. CARDIOVASCULAR: Normal. OSSEOUS STRUCTURES: No significant abnormalities. VISUALIZED UPPER ABDOMEN: Normal. OTHER FINDINGS: Right-sided Port-A-Cath IMPRESSION: Patchy infiltrates right lung base
[2016-10-18 12:06] LABS: TROPONIN I < 0.01 ng/mL
[2016-10-18 12:47] LABS: BASO # 0.01 K/mm3 (0.0-2.0); BASO % 0.1 % (0.0-3.0); EOS % 0.3 % (1.5-5.0); GRAN # 5.36 (1.4-6.5); GRAN % 73.9 % (50.0-68.0); HEMATOCRIT 32.9 % (36.0-48.0); LYMPH # 0.6 (1.2-3.4); LYMPH % 8.3 % (22.0-35.0); MEAN CELL VOLUME 91.1 fL (80.0-105.0); MEAN CORPUSCULAR HEMOGLOBIN 29.6 pg (25.0-35.0); MEAN CORPUSCULAR HGB CONC 32.5 g/dl (31.0-37.0); MEAN PLATELET VOLUME 10.2 fl (7.0-11.0); MONO # 1.3 (0.1-0.6); MONO % 17.4 % (1.0-6.0); PLATELET COUNT 192 10^3/uL (120.0-450.0); RED CELL DISTRIBUTION WIDTH 16.2 % (11.5-14.5); WHITE BLOOD COUNT 7.3 10^3/ul (4.5-11.0)
--- NOTE | 2016-10-18 14:33 | CP.CCUPN ---
<Reinaldo Kiran - Last Filed: 10/18/16 15:19> CCU Subjective - Physician Review Events Since Last Encounter (Free Text): 10/18/16 14:30 Reinaldo Kiran D.O. 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 Patient was seen and examined at bedside. Patient is doing much better and states her breathing has improved. Patient continues to have cough but has not had expectorated anything since she' s been here. Otherwise patient has no acute complaints. CCU Objective - Vital Signs / Intake & Output Vital Signs (Last 4 hours): Vital Signs Pulse Resp BP Pulse Ox 10/18/16 11:10 97 H 27 H 93 L 10/18/16 11:00 117 H 22 87/64 L 94 L 10/18/16 10:50 117 H 22 95 10/18/16 10:45 119 H 20 97/57 L 95 10/18/16 10:40 121 H 23 94 L Intake and Output (Last 8hrs): Intake & Output 10/17/16 10/18/16 10/18/16 22:59 06:59 14:59 Intake Total 200 Output Total 200 Balance 0 Weight 90.718 kg Intake: IV 100 Right Wrist 100 Oral 100 Output: Urine 200 Urine, Voided 200 - Physical Exam Head: Positive for: Normocephalic, Other (postsurgical changes from bifrontral crani) Pupils: Positive for: PERRL Extroacular Muscles: Positive for: EOMI Conjunctiva: Positive for: Normal. Negative for: Injected, Icteric Ears: Positive for: Normal Mouth: Positive for: Moist Mucous Membranes, Normal Tounge, Normal Teeth Pharnyx: Positive for: Normal. Negative for: ERYTHEMA, EXUDATE Nose (External): Positive for: Atraumatic Neck: Negative for: JVD, Lymphadenopathy Respiratory/Chest: Positive for: Wheezes (mild bibasilar), Decreased Breath Sounds. Negative for: Respiratory Distress, Accessory Muscle Use, Rales Cardiovascular: Positive for: Irregular Rhythm. Negative for: Rub, Gallop Abdomen: Positive for: Normal Bowel Sounds. Negative for: Tenderness, Distention, Peritoneal Signs Back: Negative for: CVA Tenderness, Midline Tenderness, Paraspinal Tenderness Upper Extremity: Positive for: Normal Inspection, Capillary Refill < 2s. Negative for: Cyanosis, Edema Lower Extremity: Negative for: Tenderness, Swelling Neurological: Positive for: GCS=15, CN II-XII Intact, Speech Normal, Motor Func Grossly Intact Skin: Positive for: Warm, Dry Lymphatic: Negative for: Cervical Adenopathy - Medications Active Medications: Active Medications Generic Name Dose Route Start Last Admin Trade Name Freq PRN Reason Stop Dose Admin Amiodarone HCl 200 mg 10/18/16 10:00 10/18/16 11:31 Cordarone PO Not Given DAILY [facility] Aspirin 81 mg 10/18/16 10:00 10/18/16 09:30 Ecotrin PO 81 mg DAILY JAZ Administration Atenolol 12.5 mg 10/18/16 10:00 10/18/16 09:30 Tenormin PO Not Given BID [facility] Atorvastatin Calcium 40 mg 10/18/16 17:00 Lipitor PO DIN [facility] Clopidogrel Bisulfate 75 mg 10/18/16 10:00 10/18/16 11:33 Plavix PO 75 mg DAILY JAZ Administration Folic Acid 1 mg 10/18/16 10:00 10/18/16 11:32 Folic Acid PO 1 mg DAILY JAZ Administration Gabapentin 600 mg 10/18/16 22:00 Neurontin PO HS [facility] Protocol Heparin Sodium (Porcine) 5,000 units 10/17/16 22:00 10/18/16 06:33 Heparin SC 5,000 units Q8 JAZ Administration Azithromycin 500 mg in 250 mls @ 250 mls/hr 10/18/16 10:00 10/18/16 09:29 Zithromax 500mg In Ns IVPB 250 mls/hr DAILY JAZ Administration Dobutamine HCl/Dextrose 500 mg in 250 mls @ 6.804 mls/hr 10/17/16 22:25 10/17 22:20 Dobutamine/Dextrose 5% 500mg/250ml IV 6.804 mls/hr .Q24H PRN Administration TITRATE PER PROTOCOL Protocol 2.5 MCG/KG/MIN Cefepime HCl 1 gm in 100 mls @ 100 mls/hr 10/18/16 08:30 10/18/16 09:37 Maxipime 1gm IVPB 10/25/16 08:31 100 mls/hr Q8 JAZ Administration Protocol Levalbuterol HCl 1.25 mg 10/18/16 09:08 Xopenex IH [id number] PRN Shortness of Breath Levetiracetam 500 mg 10/18/16 10:00 10/18/16 09:30 Keppra PO 500 mg BID JAZ Administration Methylprednisolone 40 mg 10/17/16 22:00 10/18/16 06:34 Solu-Medrol IV 40 mg Q8 JAZ Administration Pantoprazole Sodium 40 mg 10/18/16 10:00 10/18/16 09:29 Protonix Inj IVP 40 mg DAILY JAZ Administration Phenytoin Sodium 100 mg 10/18/16 09:00 10/18/16 09:30 Dilantin PO 100 mg PCB JAZ Administration Phenytoin Sodium 200 mg 10/18/16 22:00 Dilantin PO HS JAZ Roflumilast 500 mcg 10/18/16 10:00 10/18/16 11:33 Daliresp PO 500 mcg DAILY JAZ Administration Sildenafil Citrate 20 mg 10/18/16 10:00 10/18/16 11:33 Revatio PO 20 mg BID JAZ Administration Verapamil HCl 40 mg 10/18/16 10:00 10/18/16 11:46 Calan Tab PO Not Given TID JAZ Verapamil HCl 2.5 mg 10/18/16 09:11 Verapamil Inj IVP Q6H PRN for heart rate >130 Zolpidem Tartrate 10 mg 10/17/16 21:46 Ambien PO HS PRN Insomnia - Patient Studies Lab Studies: Lab Studies 10/18/16 10/18/16 10/18/16 Range/Units 07:30 07:00 07:00 WBC 6.6 D (4.5-11.0) 10^3/ul RBC 3.41 L (3.5-6.1) 10^6/uL Hgb 10.1 L (12.0-16.0) gm/dL Hct 30.8 L (36.0-48.0) % MCV 90.3 (80.0-105.0) fL MCH 29.6 (25.0-35.0) pg MCHC 32.8 (31.0-37.0) g/dl RDW 16.1 H (11.5-14.5) % Plt Count 158 (120.0-450.0) 10^3/uL MPV 9.5 (7.0-11.0) fl Gran % 83.5 H (50.0-68.0) % Lymph % (Auto) 3.5 L (22.0-35.0) % [place] % (Auto) 13.0 H (1.0-6.0) % Eos % (Auto) 0.0 L (1.5-5.0) % Baso % (Auto) 0.0 (0.0-3.0) % Gran # 5.48 (1.4-6.5) Lymph # 0.2 L (1.2-3.4) [place] # 0.9 H (0.1-0.6) Eos # 0.0 (0.0-0.7) Baso # 0.00 (0.0-2.0) K/mm3 Sodium 139 (132-148) mmol/L Potassium 4.4 (3.6-5.0) mmol/L Chloride 104 (98-107) mmol/L Carbon Dioxide 25 (21-33) mmol/L Anion Gap 14 (10-20) BUN 16 (7-21) mg/dL Creatinine 0.8 (0.5-1.4) mg/dL Est GFR ( Amer) > 60 Est GFR (Non-Af Amer) > 60 Random Glucose 170 H (70-110) mg/dL Calcium 8.6 (8.4-10.5) mg/dL Phosphorus 3.4 (2.5-4.5) mg/dL Magnesium 2.1 (1.7-2.2) mg/dL Total Bilirubin 0.9 (0.2-1.3) mg/dL AST 58 H (15-39) U/L ALT 45 (7-56) U/L Alkaline Phosphatase 262 H (38-133) U/L Lactate Dehydrogenase 786 H (333-699) U/L Total Creatine Kinase 65 (35-230) U/L Troponin I < 0.01 ng/mL Total Protein 6.6 (5.8-8.3) g/dL Albumin 3.3 (3.0-4.8) g/dL Globulin 3.3 gm/dL Albumin/Globulin Ratio 1.0 L (1.1-1.8) Laboratory Results - last 24 hr 10/18/16 10/18/16 10/18/16 07:00 07:00 07:30 WBC 6.6 D RBC 3.41 L Hgb 10.1 L Hct 30.8 L MCV 90.3 MCH 29.6 MCHC 32.8 RDW 16.1 H Plt Count 158 MPV 9.5 Gran % 83.5 H Lymph % (Auto) 3.5 L [place] % (Auto) 13.0 H Eos % (Auto) 0.0 L Baso % (Auto) 0.0 Gran # 5.48 Lymph # 0.2 L [place] # 0.9 H Eos # 0.0 Baso # 0.00 Sodium 139 Potassium 4.4 Chloride 104 Carbon Dioxide 25 Anion Gap 14 BUN 16 Creatinine 0.8 Est GFR ( Amer) > 60 Est GFR (Non-Af Amer) > 60 Random Glucose 170 H Calcium 8.6 Phosphorus 3.4 Magnesium 2.1 Total Bilirubin 0.9 AST 58 H ALT 45 Alkaline Phosphatase 262 H Lactate Dehydrogenase 786 H Total Creatine Kinase 65 Troponin I < 0.01 Total Protein 6.6 Albumin 3.3 Globulin 3.3 Albumin/Globulin Ratio 1.0 L EKG/Cardiology Studies: Cardiology / EKG Studies 10/18/16 04:45 EKG [ELECTROCARDIOGRAM] Stat Comment: Reason For Exam: rule out acute ischemia and/or arrythmia 10/18/16 09:10 EKG [ELECTROCARDIOGRAM] Stat Comment: a Fib RVR Reason For Exam: chest pain Results Reviewed to Date: Yes Review of Systems - Constitutional Constitutional: absent: Fever, Chills, Sweats - EENT Eyes: absent: Blind Spots, Blurred Vision Ears: absent: Decreased Hearing, Ear Discharge Nose/Mouth/Throat: absent: Epistaxis, Nasal Congestion - Cardiovascular Cardiovascular: absent: Chest Pain, Diaphoresis - Respiratory Respiratory: Cough, Wheezing. absent: Dyspnea, Hemoptysis - Gastrointestinal Gastrointestinal: absent: Abdominal Pain, Nausea, Vomiting - Genitourinary Genitourinary: absent: Dysuria, Hematuria - Musculoskeletal Musculoskeletal: absent: Myalgias, Numbness - Integumentary Integumentary: absent: Pruritus, Rash - Neurological Neurological: absent: Convulsions, Tremor Critical Care Progress Note - Prophylaxis GI Prophylaxis GI: PPI - Prophylaxis DVT Prophylaxis DVT: Heparin SQ - Nutrition Nutrition: Nutrition Category Date Time Status Heart Healthy Diet [DIET] Diets 10/18/16 Breakfast Ordered Assessment/Plan - Assessment and Plan (Free Text) Assessment: 61 year old female presenting with about two weeks of worsening SOB, fevers, chills, and productive cough with yellow-green sputum, found to have BL PNA, code Sepsis with lactate of 4 and fever of 101.4, tachypnic. Plan: Neurological AAOx4, nonfocal, protecting airway Seizures disorder on dilantin and keppra Cardiovascular Afib was in RVR, on cardizem and amio at home, now on verapamil 40 TID, held amio due to low BP today, rate improved from 130s to 90s CAD w stents continue ASA, lipitor and atenolol BP still somewhat low so given 500ml bolus, will monitor closely EF 55-60% Pulmonary On BIPAP overnight, status improved RLL PNA on azithromycin and cefepime day 1 Pulm HTN continue revatio Continue solumedrol 40q8 Continue jaz and prn nebs plus roflumilast Procal low PT to see pt Pulm following IS, [id number], PT Renal/ Fluids / Electrolytes 200/200 No electrolyte imbalances Continue euvolemia GI Cont heart healthy, no issues at this time GI following GI ppx Infectious disease Continue cefepime and azithromycin Pending cultures Hematology/Oncology On maintenance chemo as outpatient Hem/Onc on case during admission No acute issues, anemia of chronic disease Endocrine Maintain euglycemia Prophylaxis PPI/SCDs Patient was seen and examined and case was discussed at length with attending physician. - Date & Time Date: 10/18/16 Time: 06:30 <Reji VILLANUEVA,Ramses H - Last Filed: 10/18/16 16:44> CCU Objective - Vital Signs / Intake & Output Vital Signs (Last 4 hours): Vital Signs Pulse Resp BP Pulse Ox 10/18/16 16:05 85 109/55 L 10/18/16 16:00 84 21 109/55 L 89 L 10/18/16 15:50 97 H 26 H 90 L 10/18/16 15:45 96 H 19 123/73 88 L 10/18/16 15:40 84 20 96 10/18/16 15:30 84 18 144/110 H 94 L 10/18/16 15:20 85 47 H 93 L 10/18/16 15:15 82 19 116/84 95 10/18/16 15:10 88 19 96 10/18/16 15:00 80 17 95/67 L 100 10/18/16 14:50 83 16 100 10/18/16 14:45 82 16 96/66 L 100 10/18/16 14:40 85 22 98 10/18/16 14:30 83 19 95/65 L 100 10/18/16 14:20 82 15 97 10/18/16 14:15 82 17 97/66 L 97 10/18/16 14:10 82 18 99 10/18/16 14:00 85 20 98/73 L 96 10/18/16 13:50 84 18 100 10/18/16 13:45 87 24 96/68 L 100 10/18/16 13:40 84 17 100 10/18/16 13:30 95 H 46 H 98/70 L 87 L 10/18/16 13:20 88 15 96 10/18/16 13:15 86 11 L 107/79 97 10/18/16 13:10 86 96 10/18/16 13:00 85 18 105/77 95 10/18/16 12:50 88 17 94 L 10/18/16 12:45 89 19 106/76 96 Intake and Output (Last 8hrs): Intake & Output 10/18/16 10/18/16 10/18/16 06:59 14:59 22:59 Intake Total 200 Output Total 200 Balance 0 Intake: IV 100 Right Wrist 100 Oral 100 Output: Urine 200 Urine, Voided 200 - Medications Active Medications: Active Medications Generic Name Dose Route Start Last Admin Trade Name Freq PRN Reason Stop Dose Admin Amiodarone HCl 200 mg 10/18/16 10:00 10/18/16 11:31 Cordarone PO Not Given DAILY [facility] Aspirin 81 mg 10/18/16 10:00 10/18/16 09:30 Ecotrin PO 81 mg DAILY [facility] Administration Atenolol 12.5 mg 10/18/16 10:00 10/18/16 09:30 Tenormin PO Not Given BID [facility] Atorvastatin Calcium 40 mg 10/18/16 17:00 Lipitor PO DIN [facility] Clopidogrel Bisulfate 75 mg 10/18/16 10:00 10/18/16 11:33 Plavix PO 75 mg DAILY JAZ Administration Folic Acid 1 mg 10/18/16 10:00 10/18/16 11:32 Folic Acid PO 1 mg DAILY JAZ Administration Gabapentin 600 mg 10/18/16 22:00 Neurontin PO HS [facility] Protocol Heparin Sodium (Porcine) 5,000 units 10/17/16 22:00 10/18/16 16:06 Heparin SC 5,000 units Q8 JAZ Administration Azithromycin 500 mg in 250 mls @ 250 mls/hr 10/18/16 10:00 10/18/16 09:29 Zithromax 500mg In Ns IVPB 250 mls/hr DAILY [facility] Administration Dobutamine HCl/Dextrose 500 mg in 250 mls @ 6.804 mls/hr 10/17/16 22:25 10/17 22:20 Dobutamine/Dextrose 5% 500mg/250ml IV 6.804 mls/hr .Q24H PRN Administration TITRATE PER PROTOCOL Protocol 2.5 MCG/KG/MIN Cefepime HCl 1 gm in 100 mls @ 100 mls/hr 10/18/16 08:30 10/18/16 15:00 Maxipime 1gm IVPB 10/25/16 08:31 100 mls/hr Q8 JAZ Administration Protocol Levalbuterol HCl 1.25 mg 10/18/16 09:08 Xopenex IH [id number] PRN Shortness of Breath Levetiracetam 500 mg 10/18/16 10:00 10/18/16 09:30 Keppra PO 500 mg BID [facility] Administration Methylprednisolone 40 mg 10/17/16 22:00 10/18/16 16:07 Solu-Medrol IV 40 mg Q8 JAZ Administration Pantoprazole Sodium 40 mg 10/18/16 10:00 10/18/16 09:29 Protonix Inj IVP 40 mg DAILY [facility] Administration Phenytoin Sodium 100 mg 10/18/16 09:00 10/18/16 09:30 Dilantin PO 100 mg PCB JAZ Administration Phenytoin Sodium 200 mg 10/18/16 22:00 Dilantin PO HS [facility] Roflumilast 500 mcg 10/18/16 10:00 10/18/16 11:33 Daliresp PO 500 mcg DAILY [facility]AZ Administration Sildenafil Citrate 20 mg 10/18/16 10:00 10/18/16 11:33 Revatio PO 20 mg BID [facility] Administration Verapamil HCl 40 mg 10/18/16 10:00 10/18/16 16:05 Calan Tab PO 40 mg TID [facility] Administration Verapamil HCl 2.5 mg 10/18/16 09:11 Verapamil Inj IVP Q6H PRN for heart rate >130 Zolpidem Tartrate 10 mg 10/17/16 21:46 Ambien PO HS PRN Insomnia - Patient Studies Lab Studies: Lab Studies 10/18/16 10/18/16 10/18/16 Range/Units 07:30 07:00 07:00 WBC 6.6 D (4.5-11.0) 10^3/ul RBC 3.41 L (3.5-6.1) 10^6/uL Hgb 10.1 L (12.0-16.0) gm/dL Hct 30.8 L (36.0-48.0) % MCV 90.3 (80.0-105.0) fL MCH 29.6 (25.0-35.0) pg MCHC 32.8 (31.0-37.0) g/dl RDW 16.1 H (11.5-14.5) % Plt Count 158 (120.0-450.0) 10^3/uL MPV 9.5 (7.0-11.0) fl Gran % 83.5 H (50.0-68.0) % Lymph % (Auto) 3.5 L (22.0-35.0) % [place] % (Auto) 13.0 H (1.0-6.0) % Eos % (Auto) 0.0 L (1.5-5.0) % Baso % (Auto) 0.0 (0.0-3.0) % Gran # 5.48 (1.4-6.5) Lymph # 0.2 L (1.2-3.4) [place] # 0.9 H (0.1-0.6) Eos # 0.0 (0.0-0.7) Baso # 0.00 (0.0-2.0) K/mm3 Sodium 139 (132-148) mmol/L Potassium 4.4 (3.6-5.0) mmol/L Chloride 104 (98-107) mmol/L Carbon Dioxide 25 (21-33) mmol/L Anion Gap 14 (10-20) BUN 16 (7-21) mg/dL Creatinine 0.8 (0.5-1.4) mg/dL Est GFR ( Amer) > 60 Est GFR (Non-Af Amer) > 60 Random Glucose 170 H (70-110) mg/dL Calcium 8.6 (8.4-10.5) mg/dL Phosphorus 3.4 (2.5-4.5) mg/dL Magnesium 2.1 (1.7-2.2) mg/dL Total Bilirubin 0.9 (0.2-1.3) mg/dL AST 58 H (15-39) U/L ALT 45 (7-56) U/L Alkaline Phosphatase 262 H (38-133) U/L Lactate Dehydrogenase 786 H (333-699) U/L Total Creatine Kinase 65 (35-230) U/L Troponin I < 0.01 D ng/mL Total Protein 6.6 (5.8-8.3) g/dL Albumin 3.3 (3.0-4.8) g/dL Globulin 3.3 gm/dL Albumin/Globulin Ratio 1.0 L (1.1-1.8) Laboratory Results - last 24 hr 10/18/16 10/18/16 10/18/16 07:00 07:00 07:30 WBC 6.6 D RBC 3.41 L Hgb 10.1 L Hct 30.8 L MCV 90.3 MCH 29.6 MCHC 32.8 RDW 16.1 H Plt Count 158 MPV 9.5 Gran % 83.5 H Lymph % (Auto) 3.5 L [place] % (Auto) 13.0 H Eos % (Auto) 0.0 L Baso % (Auto) 0.0 Gran # 5.48 Lymph # 0.2 L [place] # 0.9 H Eos # 0.0 Baso # 0.00 Sodium 139 Potassium 4.4 Chloride 104 Carbon Dioxide 25 Anion Gap 14 BUN 16 Creatinine 0.8 Est GFR ( Amer) > 60 Est GFR (Non-Af Amer) > 60 Random Glucose 170 H Calcium 8.6 Phosphorus 3.4 Magnesium 2.1 Total Bilirubin 0.9 AST 58 H ALT 45 Alkaline Phosphatase 262 H Lactate Dehydrogenase 786 H Total Creatine Kinase 65 Troponin I < 0.01 D Total Protein 6.6 Albumin 3.3 Globulin 3.3 Albumin/Globulin Ratio 1.0 L EKG/Cardiology Studies: Cardiology / EKG Studies 10/18/16 04:45 EKG [ELECTROCARDIOGRAM] Stat Comment: Reason For Exam: rule out acute ischemia and/or arrythmia 10/18/16 09:10 EKG [ELECTROCARDIOGRAM] Stat Comment: a Fib RVR Reason For Exam: chest pain Critical Care Progress Note - Nutrition Nutrition: Nutrition Category Date Time Status Heart Healthy Diet [DIET] Diets 10/18/16 Breakfast Ordered Attending/Attestation - Attestation I have personally seen and examined this patient.: Yes I have fully participated in the care of the patient.: Yes I have reviewed all pertinent clinical information: Yes Notes (Text): 10/18/16 16:42 61 y/o F w/ Acute bronchospasm and /or post obstructive PNA. On empric abx, Iv Streoids and nebulizers and currently improving. Off BIPAP and on 3-4 L NC o2 sat > 92 % Currently on Chemotherapy for 3B Lung Ca . Afib rate controlled once p.o calcium channel bockers were placed and amiodarone was held due to hypotension. Sitting out of bed to chair, w/o distress. case d/w oncologist. dvt p heparin sq tid cc time 65 min
[2016-10-18 14:50] LABS: BLOOD UREA NITROGEN 12 mg/dL (7-21); CALCIUM 8.5 mg/dL (8.4-10.5); CARBON DIOXIDE 27 mmol/L (21-33); CHLORIDE 100 mmol/L (98-107); GFR AFRICAN-AMERICAN > 60; GLUCOSE,RANDOM 131 mg/dL (70-110); MAGNESIUM 1.9 mg/dL (1.7-2.2); PHOSPHOROUS 2.9 mg/dL (2.5-4.5); POTASSIUM 3.8 mmol/L (3.6-5.0); SODIUM 138 mmol/L (132-148); TROPONIN I 0.02 ng/mL
--- NOTE | 2016-10-18 19:23 | PN ---
DATE: 10/18/2016 The patient is in the ICU bed #7. The patient examined at the bedside and discussed her case with the yarn weight and strength tester and the attending res idents as well. This is a 61-year-old female with a past medical history of COPD, stage IIIB nonsmall cell carcinoma of the left lower lobe, status post chemoradiation, on maintenance chemotherapy with Alimta, hyperten will, coronary artery disease with bare metal stents in the right coronary artery on the right side, peripheral vascular disease with femoral stents, history of seizure disorder, benign brain tumor stat us post resection, presented to the ER on 10/17/16 with worsening shortness of breath, fevers and chil ls and productive cough with yellowish green phlegm. The patient is seen and since then has been adm itted and started on antibiotics and also has been treated for tachycardia. The patient continues to have a cough but the expectoration has decreased. OBJECTIVE: VITAL SIGNS: Reveal pulse to be 97, respirations 27, pulse ox has been 93. HEENT: Head is normocephalic, atraumatic. 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 Pupils are equally reactive to light and accommodation. Conjunctivae pale. Sclerae are anicteric. Examination of the mouth reveals moist mucous membranes with no oropharyngeal lesions. NECK: Supple. There is no adenopathy. No jugular venous distention noted. LUNGS: Reveal bilateral bibasilar wheezes, decreased breath sounds. HEART: Reveals it to be regular. There is no gallop or murmur is heard. ABDOMEN: Soft, nontender. No rebound, rigidity or guarding is noted. BACK: Is negative for any CVA tenderness or paraspinal tenderness. EXTREMITIES: Upper and lower extremities reveal no cyanosis, clubbing or edema. NEUROLOGIC: Higher functions are normal. No focal deficits are noted. SKIN: Turgor is normal. Skin is warm and dry. LYMPHATICS: There is no evidence of adenopathy in the neck, axillae, or groin. MEDICATIONS: The patient's medications were reviewed. Amiodarone has been stopped. The patient is on Cordarone daily. She is on Ecotrin 81 mg daily, Tenormin 12.5 mg b.i.d. and Lipitor 40 daily. Sh ana is on Plavix 75 daily, folic acid 1 mg daily and Neurontin 60 mg p.o. at bedtime. She is on hepari n 5000 units subQ q. 8 hours, azithromycin 500 mg and IV daily. She is on dobutamine, which is being given and titrated as per protocol. She is on cefepime 1 gram q.8hours and Xopenex inhaled q. 6 hours. She is on Keppra 500 p.o. b.i.d., Solu-Medrol 40 mg IV q.8 hours, Protonix 40 daily, Dilant in 100 mg p.o. 4 times a day, 500 mcg daily. She is on Revatio, sildenafil 20 mg p.o. b.i.d. f or pulmonary hypertension, verapamil 40 mg p.o. t.i.d. and Ambien 10 mg p.o. at bedtime p.r.n. LABORATORY DATA: The patient's labs were reviewed. White count is 6.6, hemoglobin 10.1, hematocrit 30, platelet count is 158,000. Sodium is 139, K is 4.4, chloride is 104, CO2 is 25, BUN 16, creatini ne 0.8. AST 58, ALT is 45, total bilirubin is 0.9, alkaline phosphatase is 262. Troponin is less th an 0.01. LDH is elevated at 786. ASSESSMENT NOTES AND PLAN: As per my discussion with the patient, the yarn weight and strength tester and the resident, will continue aggressive therapy. The patient is being treated for probably superimposed infection i n the background history of having severe heart failure along with supraventricular tachycardia and c hronic atrial fibrillation. The patient has improved on BiPAP and will continue the antibiotics and monitor her more intensively over the next 72 hours. The patient's blood sugars are also being monit ored and she is on proton-pump inhibitors and sequential compression devices for preventing deep veno us thrombosis. I discussed in detail with the patient regarding future treatment plans as to how ___ __ treatments as this the second time she has come into the hospital within a span of less than 3 mo nths, admitted to the hospital with exacerbation of her lung issues. The last time was because of ca rdiac reasons. Even though Luz Maria does not have any cardiac risk factors, it definitely has some tox icity, so we will have to review her treatment plan in the near future. I have discussed these findi ngs with the patient's family as well. I will speak to Dr. Keith, the PMD as well. Michelle Gomez MD cc: [id number] TT: 10/18/2016 19:23:02 Confirmation # [id number] Dictation # [id number]
--- NOTE | 2016-10-18 20:52 | PN ---
DATE: 10/18/2016 SUBJECTIVE: The patient is sitting up in the bed, feels much better. Son is at bedside. Night was unremarkable. Tolerated BiPAP well. Did not tolerate dobutamine, went to rapid afib, dobutamine was discontinued. Has a cough with discolored sputum production. No nausea, no vomiting, diarrhea. No leg pain or leg swelling. OBJECTIVE: GENERAL: No acute distress. VITAL SIGNS: Temp is 98, heart rate is 91, respiratory rate is 20, blood pressure 110/73, pulse ox 9 3% on nasal cannula. HEENT: Moist mucous membranes. Crowded airway. Mallampati score is 4. NECK: Supple. No JVD. LUNGS: Has decreased breath sounds at the right base, scattered rhonchi and few wheezing. HEART: S1 and S2. ABDOMEN: Soft, nontender. No organomegaly. EXTREMITIES: There is no edema. NEUROLOGIC: Awake, alert, follows simple commands. MEDICATIONS: She is on Ambien 10 mg at bedtime p.r.n., Calan 40 mg 3 times a day, amiodarone ____ mg daily, Daliresp 500 mcg daily, Dilantin 100 mg a.c.b. also 200 mg at bedtime, Ecotrin 81 mg daily, f olic acid 1 mg daily, heparin 5000 units subQ q. 8 hours, Keppra 500 mg twice a day, Lipitor 40 mg [place], Maxipime 1 gram q. 8 hours, Neurontin 600 mg at bedtime, Plavix 75 mg daily, Protonix 40 mg izzy y, Revatio 20 mg twice a day, Solu-Medrol 20 mg q. 8 hours, Tenormin 12.5 mg twice a day, verapamil 2 .5 mg q. 6 hours p.r.n., Xopenex 1.25 mg q. 6 hours p.r.n., Zithromax 500 mg daily. LABORATORY DATA: Shows hemoglobin 10.1, hematocrit 30.8, WBC 6.6, platelet count is 158. Sodium 139 , potassium 4.4, chloride 104, bicarbonate 25, BUN 16, creatinine 0.8, glucose 170, calcium 8.6, phos phorus 3.4, magnesium 2.1, AST 58, ALT 48, alkaline phosphatase is ____ Troponin less than 0.01, alb umin 3.3. IMPRESSION AND PLAN: Respiratory failure requiring noninvasive ventilation, chronic obstructive lung disease, unresectable lung cancer, status post radiation therapy, been on chemotherapy, sleep apnea syndrome, seizure disorder, severe pulmonary hypertension, been on pulmonary vasodilator, been discon tinued because of hypotension. Did not tolerate dobutamine last night, back on Revatio will watch bl ood pressure closely. Gastric prophylaxis, anticoagulation, IV and inhaled bronchodilator and antibi otics. Encourage BiPAP use at nighttime. Follow up labs in the morning. Critical care time more than 35 minutes. Thank you and will follow with you. Serenity Martinez MD cc: [phone] TT: 10/18/2016 20:51:56 Confirmation # [id number] Dictation # [id number]
--- NOTE | 2016-10-18 22:07 | CARD ---
APPROVED REPORT EKG Measurement Heart [id number] <Conclusion> Accelerated Junctional rhythm with retrograde conduction Rightward axis Junctional ST depression, probably normal Abnormal ECG
--- NOTE | 2016-10-18 22:13 | CARD ---
APPROVED REPORT EKG Measurement Heart [id number] <Conclusion> Accelerated Junctional rhythm Nonspecific ST and T wave abnormality Abnormal ECG
--- NOTE | 2016-10-18 23:06 | CARD ---
APPROVED REPORT EKG Measurement Heart [id number] <Conclusion> Sinus tachycardia Otherwise normal ECG
[2016-10-19] MEDS: Cefepime 1gm in NS 100ml 1 GM/100 ML BAG IVPB SCH ×3 (06:00→22:41)
[2016-10-19] MEDS: MethylPREDNISolone 40 mg Vial IV SCH ×2 (06:00→22:43)
[2016-10-19 06:47] LABS: HEMATOCRIT 27.7 % (36.0-48.0); MEAN CELL VOLUME 90.8 fL (80.0-105.0); MEAN CORPUSCULAR HEMOGLOBIN 29.2 pg (25.0-35.0); MEAN CORPUSCULAR HGB CONC 32.1 g/dl (31.0-37.0); MEAN PLATELET VOLUME 9.6 fl (7.0-11.0); PLATELET COUNT 185 10^3/uL (120.0-450.0); WHITE BLOOD COUNT 7.4 10^3/ul (4.5-11.0)
[2016-10-19 06:54] LABS: ADD MANUAL DIFF? YES
[2016-10-19 07:00] LABS: ALB/GLOB RATIO 1.1 (1.1-1.8); ALKALINE PHOSPHATASE 227 U/L (38-133); ALT/SGPT 48 U/L (7-56); AST/SGOT 37 U/L (15-39); BILIRUBIN,TOTAL 0.5 mg/dL (0.2-1.3); BLOOD UREA NITROGEN 16 mg/dL (7-21); CARBON DIOXIDE 28 mmol/L (21-33); CHLORIDE 107 mmol/L (98-107); GFR AFRICAN-AMERICAN > 60; GLUCOSE,RANDOM 132 mg/dL (70-110); MAGNESIUM 2.2 mg/dL (1.7-2.2); PHOSPHOROUS 2.5 mg/dL (2.5-4.5); POTASSIUM 4.2 mmol/L (3.6-5.0); SODIUM 140 mmol/L (132-148); TOTAL PROTEIN 6.2 g/dL (5.8-8.3)
[2016-10-19 08:39] LABS: ANISOCYTOSIS 1+; BAND 3 % (0-2); HYPOCHROMIA 1+; LARGE PLATELETS PRESENT; NEUTROPHIL 82 % (50.0-70.0); OVALOCYTES SLIGHT; PLATELET ESTIMATE NORMAL (NORMAL); POIKILOCYTOSIS SLIGHT; POLYCHROMASIA SLIGHT
[2016-10-19] MEDS: guaiFENesin DM 200 mg-20 mg/10 ml UD PO PRN ×2 (09:42→14:49)
[2016-10-19] MEDS: Sildenafil 20 MG TAB PO SCH ×2 (09:42→18:48)
[2016-10-19] MEDS: Azithromycin 500MG/NS 250ml 500 MG/250 ML BAG IVPB SCH (09:44)
--- NOTE | 2016-10-19 10:58 | PN ---
DATE: 10/19/2016 SUBJECTIVE: The patient is complaining of chills this morning. She has a slight headache. Complaining of productive cough. She denies any shortness of breath or chest pain. PHYSICAL EXAMINATION: VITAL SIGNS: Temperature 97.3, pulse 100-105 regular, blood pressure 109/73 and respiratory rate 20. GENERAL: She is sitting on the edge of bed, alert, awake, oriented, in no acute form of distress. HEENT: Head is normocephalic, atraumatic. Pupils reactive to light. Oral mucosa is moist. NECK: Supple. LUNGS: With decreased breath sounds and crackles in the left lower lung. No rales. No wheezing. HEART: With regular rhythm, rate of 100 per minute. ABDOMEN: Soft, nontender, nondistended. EXTREMITIES: With no edema, no calf tenderness. DIAGNOSTIC TESTS: Significant for CBC with WBC 7.4, hemoglobin 8.9. Slight drop from yesterday 10.1. Chemistry with normal electrolytes, normal renal function. Glucose 132. Procalcitonin negative. ASSESSMENT: 1. Sepsis with probably right lower lobe pneumonia. 2. Exacerbation of chronic obstructive lung disease. 3. Sinus tachycardia, improved with Cardizem. 4. Nonresectable left lung cancer. 5. Anemia of chronic disease, worsened since yesterday. PLAN OF TREATMENT: We will continue IV antibiotics, Solu-Medrol, and increase nebulizer treatments with Xopenex every 4 hours for her cough. Continue Cardizem and atenolol. Continue DVT prophylaxis with heparin and gastric protection with Protonix. Keira Keith MD cc: [id number] TT: 10/19/2016 10:57:50 Confirmation # [id number] Dictation # [id number] stephanie ALVARADO
[2016-10-19] MEDS: Levalbuterol 1.25 MG/3 ML Inhal Soln UD IH SCH ×3 (11:17→20:08)
[2016-10-19] MEDS: Ipratropium 0.02% Inhal Soln (0.5 mg/2.5 ml) UD IH SCH ×3 (11:19→20:08)
--- NOTE | 2016-10-19 12:21 | CP.PCM.PN ---
Subjective - Date & Time of Evaluation Date of Evaluation: 10/19/16 Time of Evaluation: 09:30 - Subjective Subjective: Patient is still having shortness of breath and wheezing, but no fevers. Objective - Vital Signs/Intake and Output Vital Signs (last 24 hours): Temp Pulse Resp BP Pulse Ox 97.8 F 111 H 14 109/73 65 L 10/19/16 11:08 10/19/16 09:50 10/19/16 09:50 10/19/16 09:45 10/19/16 09:40 - Medications Medications: Current Medications Acetaminophen (Tylenol 325mg Tab) 650 mg PO Q4H PRN PRN Reason: Headache Last Admin: 10/19/16 11:08 Dose: 650 mg Amiodarone HCl (Cordarone) 200 mg PO DAILY [facility] Last Admin: 10/19/16 09:45 Dose: 200 mg Aspirin (Ecotrin) 81 mg PO DAILY [facility] Last Admin: 10/19/16 09:46 Dose: 81 mg Atenolol (Tenormin) 12.5 mg PO BID [facility] Last Admin: 10/19/16 09:43 Dose: 12.5 mg Atorvastatin Calcium (Lipitor) 40 mg PO DIN [facility] Last Admin: 10/18/16 18:01 Dose: 40 mg Clopidogrel Bisulfate (Plavix) 75 mg PO DAILY [facility] Last Admin: 10/19/16 09:42 Dose: 75 mg Folic Acid (Folic Acid) 1 mg PO DAILY [facility] Last Admin: 10/19/16 09:46 Dose: 1 mg Gabapentin (Neurontin) 600 mg PO HS [facility] PRN Reason: Protocol Last Admin: 10/18/16 22:42 Dose: 600 mg Guaifenesin/Dextromethorphan (Robitussin Dm) 10 ml PO Q4H PRN PRN Reason: Cough Last Admin: 10/19/16 09:42 Dose: 10 ml Heparin Sodium (Porcine) (Heparin) 5,000 units SC Q8 [facility] Last Admin: 10/18/16 22:43 Dose: 5,000 units Azithromycin (Zithromax 500mg In Ns) 500 mg in 250 mls @ 250 mls/hr IVPB DAILY [facility] Last Admin: 10/19/16 09:44 Dose: 250 mls/hr Dobutamine HCl/Dextrose (Dobutamine/Dextrose 5% 500mg/250ml) 500 mg in 250 mls @ 6.804 mls/hr IV .Q24H PRN; Protocol; 2.5 MCG/KG/MIN PRN Reason: TITRATE PER PROTOCOL Last Admin: 10/17/16 22:20 Dose: 6.804 mls/hr Cefepime HCl (Maxipime 1gm) 1 gm in 100 mls @ 100 mls/hr IVPB Q8 [facility] PRN Reason: Protocol Stop: 10/25/16 08:31 Last Admin: 10/19/16 06:00 Dose: 100 mls/hr Ipratropium [place] (Atrovent) 0.5 mg IH [id number] [facility] Last Admin: 10/19/16 11:19 Dose: 0.5 mg Levalbuterol HCl (Xopenex) 1.25 mg IH [id number] PRN PRN Reason: Shortness of Breath Last Admin: 10/19/16 08:52 Dose: 1.25 mg Levalbuterol HCl (Xopenex) 1.25 mg IH [id number] [facility] Last Admin: 10/19/16 11:17 Dose: 1.25 mg Levetiracetam (Keppra) 500 mg PO BID [facility] Last Admin: 10/19/16 09:46 Dose: 500 mg Methylprednisolone (Solu-Medrol) 40 mg IV Q8 [facility] Last Admin: 10/19/16 06:00 Dose: 40 mg Pantoprazole Sodium (Protonix Inj) 40 mg IVP DAILY [facility] Last Admin: 10/19/16 09:42 Dose: 40 mg Phenytoin Sodium (Dilantin) 100 mg PO PCB [facility] Last Admin: 10/19/16 09:46 Dose: 100 mg Phenytoin Sodium (Dilantin) 200 mg PO HS [facility] Last Admin: 10/18/16 22:44 Dose: 200 mg Roflumilast (Daliresp) 500 mcg PO DAILY [facility] Last Admin: 10/19/16 09:45 Dose: 500 mcg Sildenafil Citrate (Revatio) 20 mg PO BID [facility] Last Admin: 10/19/16 09:42 Dose: 20 mg Verapamil HCl (Calan Tab) 40 mg PO TID [facility] Last Admin: 10/19/16 09:41 Dose: 40 mg Verapamil HCl (Verapamil Inj) 2.5 mg IVP Q6H PRN PRN Reason: for heart rate >130 Zolpidem Tartrate (Ambien) 10 mg PO HS PRN PRN Reason: Insomnia Last Admin: 10/18/16 22:44 Dose: 10 mg - Labs Labs: 10/19/16 06:33 10/19/16 06:33 PT 11.2 Seconds (9.9-11.8) 10/17/16 11:00 INR 1.04 (0.93-1.08) 10/17/16 11:00 APTT 29.9 Seconds (23.7-30.8) 10/17/16 11:00 - Constitutional Appears: Non-toxic, No Acute Distress - Head Exam Head Exam: NORMAL INSPECTION - ENT Exam ENT Exam: Mucous Membranes Moist - Neck Exam Neck Exam: absent: Lymphadenopathy, Meningismus - Respiratory Exam Respiratory Exam: Decreased Breath Sounds, Wheezes (decreased) - Cardiovascular Exam Cardiovascular Exam: +S1, +S2 - GI/Abdominal Exam GI & Abdominal Exam: Soft. absent: Tenderness Assessment and Plan - Assessment and Plan (Free Text) Plan: Assessment Acute hypoxic respiratory failure. probably COPD exacerbation, slowly improving stage3 IIIB non-small cell lung cancer S/P chemotherapy COPD atrial fibrillation peripheral vascular disease S/P femoral stenting benign brain tumor S/P removal in 2013 seizure disorder pulmonary HTN CAD S/P PCI chronic CHF obesity with BMI 33 Plan continue Cefepime and Zithromax day 2 will continue to monitor clinical response
--- NOTE | 2016-10-19 12:28 | PN ---
DATE: 10/19/2016 SUBJECTIVE: The patient is awake and alert with O2 via nasal cannula, stating that when she does cou gh hard she does have some pleuritic chest pain. The sputum is slightly colored harry and does have sm all specks of blood when it is produced. She had breakfast this morning. No nauseousness or vomitin g. No abdominal pain, no diarrhea. At this time is comfortable with O2 support via nasal cannula. No respiratory distress. PHYSICAL EXAMINATION: VITAL SIGNS: Her temperature is 97.8, her pulse is 111, respirations are 14, and BP is 109/73. HEENT: Head is atraumatic, normocephalic. Eyes reactive to light. Ears, nose and throat seem to be within normal limits. NECK: Supple, no JVD, no thyroid enlargement, no lymph nodes. CARDIOVASCULAR: Heart has regular rate and rhythm, normal S1, S2. LUNGS: Reveal mild rhonchi bilaterally. ABDOMEN: Soft, nontender, but obese. GENITALIA AND RECTAL: Deferred. MUSCULOSKELETAL: No joint deformities. EXTREMITIES: Reveal no significant edema. NEUROLOGIC: She seemed to be grossly intact. LABORATORY DATA: As far as her laboratories are concerned, her white count is 7.4, hemoglobin is 8.9 , hematocrit 27.7 with platelets of 185,000. Her sodium is 140, potassium 4.2, chloride 107, CO2 of 28, BUN of 16, creatinine of 0.8, and glucose of 132. IMPRESSION: This patient has pneumonia with exacerbation of her chronic obstructive pulmonary diseas e. The patient also has lung cancer, nonsmall cell. She has pulmonary hypertension with systemic hy pertension as well, coronary artery disease, obesity, peripheral vascular disease, a seizure disorder and is noted to have anemia. PLAN: We will continue with aggressive pulmonary toilet, continue with O2 via nasal cannula. The pa tient is getting bronchodilators of Xopenex as well as ipratropium bromide. The patient is on Dilant in for her seizures as well as Keppra and she is getting cefepime as an antibiotic. She is also on Z ithromax. She is getting Solu-Medrol as well as cough meds and aggressive pulmonary toilet. Marcos Tiwari MD cc: [id number] TT: 10/19/2016 12:27:13 Confirmation # [id number] Dictation # [id number]
[2016-10-19] MEDS ORDERED: Morphine 2 mg/ml ISec IVP ONE (14:55)
[2016-10-19] MEDS ORDERED: oxyCODONE 5 mg Immediate Release Tab PO STA (15:01)
--- NOTE | 2016-10-19 16:08 | CARD ---
APPROVED REPORT EKG Measurement Heart [id number] <Conclusion> Sinus tachycardia Otherwise normal ECG
--- NOTE | 2016-10-19 17:24 | RAD ---
HISTORY: RLL mass, PNA COMPARISON: 10/18/2016 FINDINGS: LUNGS: Ill-defined opacity at right lung base. Followup advised. Possible early pneumonia. PLEURA: No significant pleural effusion identified, no pneumothorax apparent. CARDIOVASCULAR: Right central venous infusion port. Normal heart size. No congestive change. OSSEOUS STRUCTURES: No significant abnormalities. VISUALIZED UPPER ABDOMEN: Normal. OTHER FINDINGS: None. IMPRESSION: Ill-defined opacity at right base. Followup advised.
[2016-10-19] MEDS: Promethazine/Cod 6.25mg-10mg/5ml Syr UD PO PRN ×2 (18:00→22:56)
--- NOTE | 2016-10-19 23:37 | PN ---
DATE: 10/19/2016 PULMONARY CRITICAL CARE PROGRESS NOTE REFERRING PHYSICIAN: Dr. Longoria. SUBJECTIVE: Sitting on side of the bed, getting short of breath, more cough, blood-tinged sputum pro duction. No nausea, no vomiting, no diarrhea, no leg pain or leg swelling. OBJECTIVE: GENERAL: No acute distress. VITAL SIGNS: Temp is 98, heart rate is 101, respiratory rate is 20, blood pressure 102/60, pulse ox 90% on nasal cannula. HEENT: Moist mucous membranes. Crowded airway. Mallampati score is 4. NECK: Supple. No JVD. LUNGS: Has bilateral scattered rhonchi with wheezing. HEART: S1 and S2. ABDOMEN: Soft, nontender. No organomegaly. EXTREMITIES: There is no edema. NEUROLOGIC: Awake, alert, follows simple command. MEDICATIONS: She is on Ambien 10 mg at bedtime p.r.n., Ativan 0.5 mg inhaled q. 4 hours, Calan 40 mg 3 times a day, amiodarone 200 mg daily, Daliresp 500 mcg daily, Dilantin 100 mg a.c.b. and Dilantin 200 mg , dobutamine has been discontinued, Ecotrin 81 mg daily, folic acid 1 mg daily, heparin 5 000 subQ q. 8 hours, Keppra 500 mg twice a day, Lipitor 40 mg daily, cefepime 1 g IV q. 8 hours, Neur ontin 600 mg q. 8 hours, Percocet 5/325 q. 6 hours, promethazine with codeine q. 6 hours, Plavix 75 m g daily, Protonix 40 mg daily, Revatio 20 mg twice a day, Solu-Medrol 40 mg q. 8 hours, Tenormin 12. 5 mg twice a day, Tylenol on a p.r.n. basis, verapamil 2.5 mg q. 6 hours, Xopenex inhaled q. 6 hours, Zithromax 500 mg daily. LABORATORY DATA: Shows hemoglobin 8.9, hematocrit 27.7, WBC 7.4, platelet is 185. Sodium 140, potas sium 4.2, chloride is 107, bicarbonate 28, BUN 16, creatinine 0.8, glucose 132, calcium 9.0, phosphor us 2.5, magnesium 2.2. AST 37, ALT 48, alkaline phosphatase is 227, albumin is 3.3. Microbiology: Blood cultures, urine culture no growth. Ill-defined opacity at the right base, could be pneumonia. IMPRESSION AND PLAN: Respiratory failure requiring noninvasive ventilation, obstructive lung disease , unresectable lung cancer radiation therapy and chemotherapy, sleep apnea syndrome, seizure di sorder, severe pulmonary hypertension, on pulmonary vasodilator with increased cough and shortness of breath today. There is new infiltrate seen on the . We will continue to encourage BiPAP use. Keep head elevated at 45 degrees. Continue antibiotics. Continue steroids, antibiotics. We will a dd Tessalon Perles 200 mg q. 8 hours and also add Lyrica 25 mg twice a day. ABG, chest x-ray, CBC, C MP in the morning. Critical care time spent more than 35 minutes. Serenity Martinez MD cc: [id number] TT: 10/19/2016 23:37:22 Confirmation # [id number] Dictation # [id number] mn
[2016-10-20] MEDS: Ipratropium 0.02% Inhal Soln (0.5 mg/2.5 ml) UD IH SCH ×6 (00:02→20:00)
[2016-10-20] MEDS: Levalbuterol 1.25 MG/3 ML Inhal Soln UD IH SCH ×6 (00:03→20:00)
[2016-10-20] MEDS: Promethazine/Cod 6.25mg-10mg/5ml Syr UD PO PRN ×4 (03:15→22:45)
[2016-10-20] MEDS: Cefepime 1gm in NS 100ml 1 GM/100 ML BAG IVPB SCH ×2 (05:35→13:30)
[2016-10-20] MEDS: MethylPREDNISolone 40 mg Vial IV SCH ×3 (05:36→22:45)
[2016-10-20 06:34] LABS: ADD MANUAL DIFF? NO
[2016-10-20 06:53] LABS: GRAN % 87.5 % (50.0-68.0); HEMATOCRIT 29.4 % (36.0-48.0); LYMPH # 0.3 (1.2-3.4); LYMPH % 2.1 % (22.0-35.0); MEAN CELL VOLUME 91.3 fL (80.0-105.0); MEAN CORPUSCULAR HEMOGLOBIN 29.2 pg (25.0-35.0); MEAN PLATELET VOLUME 9.9 fl (7.0-11.0); MONO # 1.4 (0.1-0.6); MONO % 10.4 % (1.0-6.0); PLATELET COUNT 199 10^3/uL (120.0-450.0); RED CELL DISTRIBUTION WIDTH 16.7 % (11.5-14.5); WHITE BLOOD COUNT 13.6 10^3/ul (4.5-11.0)
[2016-10-20 07:34] LABS: ALB/GLOB RATIO 1.1 (1.1-1.8); ALKALINE PHOSPHATASE 179 U/L (38-133); ALT/SGPT 37 U/L (7-56); AST/SGOT 24 U/L (15-39); BILIRUBIN,TOTAL 0.5 mg/dL (0.2-1.3); BLOOD UREA NITROGEN 14 mg/dL (7-21); CALCIUM 8.7 mg/dL (8.4-10.5); CARBON DIOXIDE 25 mmol/L (21-33); CHLORIDE 104 mmol/L (98-107); GFR AFRICAN-AMERICAN > 60; GLUCOSE,RANDOM 147 mg/dL (70-110); PHOSPHOROUS 3.2 mg/dL (2.5-4.5); POTASSIUM 4.3 mmol/L (3.6-5.0); SODIUM 138 mmol/L (132-148); TOTAL PROTEIN 6.5 g/dL (5.8-8.3)
[2016-10-20] MEDS: Oxycodone/Acetaminophen 5/325 mg Tab PO PRN (09:45)
[2016-10-20] MEDS: Sildenafil 20 MG TAB PO SCH ×2 (09:45→18:00)
--- NOTE | 2016-10-20 12:04 | PN ---
DATE: 10/20/2016 SUBJECTIVE: The patient continues to have occasional cough and states the headache is only when she is coughing now, so the headache has improved some. She still has some back pain when she coughs as well, but now it is only on the right side, not bilaterally, and it is only when she is actively coug corina as well. The patient is on O2 via nasal cannula and her O2 saturation is 97%. She has tachycar pepper and medications are being given to help resolve that problem. No nauseousness or vomiting. No d iarrhea, no abdominal pain. PHYSICAL EXAMINATION: VITAL SIGNS: Her temperature is afebrile, her pulse is 127, respirations are 25, and BP is 131/74. SKIN: Warm and dry. HEAD: Atraumatic, normocephalic. EYES: Reactive to light. EARS, NOSE AND THROAT: Seemed to be within normal limits. NECK: Supple. No JVD, no thyroid enlargement, no lymph nodes. HEART: Has a regular rate and rhythm. Normal S1, S2, but tachycardic. LUNGS: Reveal mild rhonchi at the bases with some decreased breath sounds at the bases as well. ABDOMEN: Soft, nontender, but obese. GENITALIA AND RECTAL: Deferred. MUSCULOSKELETAL: No joint deformities. EXTREMITIES: Reveal trace lower extremity edema. NEUROLOGIC: She seemed to be grossly intact. As far as her chest x-ray, there seems to be increased infiltrative process in the right lower lobe, possible increasing pneumonia. LABORATORIES: Reveal a white count of 13.6, hemoglobin of 9.4, hematocrit 29.4 with platelets of 199 ,000. Her sodium is 138, potassium 4.3, chloride 104, CO2 of 25 with a BUN of 14, creatinine 0.9 and a glucose of 147. IMPRESSION: This patient has pneumonia with exacerbation of her chronic obstructive pulmonary diseas e. She has stage III lung cancer that is nonsmall cell in type. The patient has pulmonary hypertens ion as well as systemic hypertension, coronary artery disease, obesity, peripheral vascular disease, seizure disorder, and anemia. PLAN: We will continue with aggressive pulmonary toilet, continue with O2 via nasal cannula and foll ow her O2 sats and laboratories closely. The patient will be getting Cardizem to see if we can contr ol the heart rate better and Xopenex as well as ipratropium bromide. We will get Estelita Johns. She is on cefepime and Zithromax as well as Solu-Medrol and cough meds. We will continue with [facility] pulmonary toilet. Marcos Tiwari MD cc: [id number] TT: 10/20/2016 12:03:00 Confirmation # [id number] Dictation # [id number]
--- NOTE | 2016-10-20 12:22 | RAD ---
HISTORY: infiltrate COMPARISON: 10/19/2016 FINDINGS: LUNGS: Opacity at right base does not persist. Probable subsegmental atelectasis at right base. . Increasing opacity left base, likely retrocardiac. PLEURA: No significant pleural effusion identified, no pneumothorax apparent. CARDIOVASCULAR: Right central venous infusion port. OSSEOUS STRUCTURES: No significant abnormalities. VISUALIZED UPPER ABDOMEN: Normal. OTHER FINDINGS: None. IMPRESSION: Increasing opacity left base, likely left lower lobe. Possible pneumonia.
[2016-10-20] MEDS: Azithromycin 500MG/NS 250ml 500 MG/250 ML BAG IVPB SCH (12:36)
--- NOTE | 2016-10-20 14:09 | CP.PCM.PN ---
Subjective - Date & Time of Evaluation Date of Evaluation: 10/20/16 Time of Evaluation: 10:30 - Subjective Subjective: Patient developed fever this morning. Still with SOB and cough and wheezing. Objective - Vital Signs/Intake and Output Vital Signs (last 24 hours): Temp Pulse Resp BP Pulse Ox 101.4 F H 107 H 24 105/62 81 L 10/20/16 12:42 10/20/16 13:28 10/20/16 12:20 10/20/16 13:28 10/20/16 12:20 Intake and Output: 10/20/16 10/20/16 06:59 18:59 Intake Total 460 Output Total 600 Balance -140 - Medications Medications: Current Medications Acetaminophen (Tylenol 325mg Tab) 650 mg PO Q4H PRN PRN Reason: Headache Last Admin: 10/20/16 12:42 Dose: 650 mg Amiodarone HCl (Cordarone) 200 mg PO DAILY [facility] Last Admin: 10/20/16 09:46 Dose: 200 mg Aspirin (Ecotrin) 81 mg PO DAILY [facility] Last Admin: 10/20/16 09:45 Dose: 81 mg Atenolol (Tenormin) 12.5 mg PO BID [facility] Last Admin: 10/20/16 09:47 Dose: 12.5 mg Atorvastatin Calcium (Lipitor) 40 mg PO DIN [facility] Last Admin: 10/19/16 18:48 Dose: 40 mg Benzonatate (Tessalon Perles) 100 mg PO TID [facility] Last Admin: 10/20/16 13:34 Dose: 100 mg Clopidogrel Bisulfate (Plavix) 75 mg PO DAILY [facility] Last Admin: 10/20/16 09:40 Dose: 75 mg Folic Acid (Folic Acid) 1 mg PO DAILY [facility] Last Admin: 10/20/16 09:44 Dose: 1 mg Gabapentin (Neurontin) 600 mg PO HS [facility] PRN Reason: Protocol Last Admin: 10/19/16 22:40 Dose: 600 mg Gabapentin (Neurontin) 300 mg PO PCB [facility] PRN Reason: Protocol Heparin Sodium (Porcine) (Heparin) 5,000 units SC Q8 [facility] Last Admin: 10/20/16 13:29 Dose: 5,000 units Azithromycin (Zithromax 500mg In Ns) 500 mg in 250 mls @ 250 mls/hr IVPB DAILY [facility] Last Admin: 10/20/16 12:36 Dose: 250 mls/hr Cefepime HCl (Maxipime 2gm) 2 gm in 100 mls @ 100 mls/hr IVPB Q8 [facility] PRN Reason: Protocol Stop: 10/25/16 14:16 Vancomycin HCl (Vancomycin 1gm) 250 mls @ 167 mls/hr IVPB Q12H [facility] PRN Reason: Protocol Ipratropium [place] (Atrovent) 0.5 mg IH [id number] [facility] Last Admin: 10/20/16 11:35 Dose: 0.5 mg Levalbuterol HCl (Xopenex) 1.25 mg IH [id number] [facility] Last Admin: 10/20/16 11:35 Dose: 1.25 mg Levetiracetam (Keppra) 500 mg PO BID [facility] Last Admin: 10/20/16 09:44 Dose: 500 mg Methylprednisolone (Solu-Medrol) 40 mg IV Q8 [facility] Last Admin: 10/20/16 13:27 Dose: 40 mg Oxycodone/Acetaminophen (Percocet 5/325 Mg Tab) 1 tab PO Q6H PRN PRN Reason: Pain, severe (8-10) Stop: 10/22/16 18:52 Last Admin: 10/20/16 09:45 Dose: 1 tab Pantoprazole Sodium (Protonix Inj) 40 mg IVP DAILY [facility] Last Admin: 10/20/16 09:49 Dose: 40 mg Phenytoin Sodium (Dilantin) 100 mg PO PCB [facility] Last Admin: 10/20/16 09:44 Dose: 100 mg Phenytoin Sodium (Dilantin) 200 mg PO HS [facility] Last Admin: 10/19/16 22:41 Dose: 200 mg Promethazine HCl/Codeine (Phenergan/Codeine Oral Syrup) 5 ml PO Q4H PRN PRN Reason: Cough and congestion Last Admin: 10/20/16 07:06 Dose: 5 ml Roflumilast (Daliresp) 500 mcg PO DAILY [facility] Last Admin: 10/20/16 09:44 Dose: 500 mcg Sildenafil Citrate (Revatio) 20 mg PO BID [facility] Last Admin: 10/20/16 09:45 Dose: 20 mg Verapamil HCl (Calan Tab) 40 mg PO TID [facility] Last Admin: 10/20/16 13:28 Dose: 40 mg Verapamil HCl (Verapamil Inj) 2.5 mg IVP Q6H PRN PRN Reason: for heart rate >130 Zolpidem Tartrate (Ambien) 10 mg PO HS PRN PRN Reason: Insomnia Last Admin: 10/18/16 22:44 Dose: 10 mg - Labs Labs: 10/20/16 06:30 10/20/16 06:30 PT 11.2 Seconds (9.9-11.8) 10/17/16 11:00 INR 1.04 (0.93-1.08) 10/17/16 11:00 APTT 29.9 Seconds (23.7-30.8) 10/17/16 11:00 - Constitutional Appears: Other (some shortness of breath at rest) - Head Exam Head Exam: NORMAL INSPECTION - ENT Exam ENT Exam: Mucous Membranes Moist - Neck Exam Neck Exam: absent: Lymphadenopathy, Meningismus - Respiratory Exam Respiratory Exam: Decreased Breath Sounds - Cardiovascular Exam Cardiovascular Exam: +S1, +S2 - GI/Abdominal Exam GI & Abdominal Exam: Soft. absent: Tenderness Assessment and Plan - Assessment and Plan (Free Text) Plan: Assessment Acute hypoxic respiratory failure. probably COPD exacerbation, now with sepsis due to right lower lobe healthcare-associated pneumonia stage3 IIIB non-small cell lung cancer S/P chemotherapy COPD atrial fibrillation peripheral vascular disease S/P femoral stenting benign brain tumor S/P removal in 2013 seizure disorder pulmonary HTN CAD S/P PCI chronic CHF obesity with BMI 33 Plan will increase dose of Cefepime and continue Zithromax and add Vancomycin IV pending repeat blood and sputum cx discussed with Dr. Singh will continue to monitor clinical response
[2016-10-20] MEDS ORDERED: Vancomycin 1gm in NS 250ml 1 GM/250 ML BAG IVPB SCH (14:15)
[2016-10-20] MEDS ORDERED: DOBUTamine 500mg/250ml D5W 500 MG/250 ML BAG IV PRN (14:23)
--- NOTE | 2016-10-20 16:01 | PN ---
DATE: 10/20/2016 REFERRING PHYSICIAN: Dr. Longoria SUBJECTIVE: She is sitting up in a bed having dinner. Still has a cough, blood-tinged sputum produc tion, shortness of breath. Tolerating BiPAP well. No nausea, no vomiting, no diarrhea, no leg pain or leg swelling. OBJECTIVE: GENERAL: Xdce-mt-ldlmoqby distress. VITAL SIGNS: Temp is 98, heart rate is 103, respiratory rate is 25, blood pressure 90/34, pulse ox 8 5% to 90% on nasal cannula. HEENT: Moist mucous membrane. Crowded airway. NECK: Supple. No JVD. LUNGS: Has crackles at the bases, scattered rhonchi, wheezing. HEART: S1 and S2. ABDOMEN: Soft, nontender. No organomegaly. EXTREMITIES: Trace edema. NEUROLOGIC: Awake, alert, follows simple command. MEDICATIONS: She is on Ambien 10 mg at bedtime, Atrovent ____ mg q.4 hours, Calan 40 mg 3 times a da y, amiodarone 200 mg daily, Daliresp 500 mcg daily, Dilantin 100 mg in the morning and 200 mg at nigh t, aspirin Ecotrin 81 mg daily, folic acid 1 mg daily, heparin 5000 units subQ q.8 hours, Keppra 500 mg twice a day, Lipitor 40 mg daily, cefepime 2 g IV q.8 hours, Neurontin 600 mg q.8 hours, Percocet 5/325 q.6 hours p.r.n., Phenergan with codeine q.4 hours p.r.n., Plavix 75 mg daily, Protonix 40 mg d y, Revatio 20 mg q.12 hours, Tenormin 1.25 mg twice a day, Tessalon Perles 100 mg 3 times a day. LABORATORY DATA: Shows hemoglobin 9.4, hematocrit 29.4, WBC 13.6, platelet is 199. Blood gases not done today. Sodium 138, potassium 4.3, chloride 104, bicarbonate 25, BUN 14, creatinine 0.9, glucose 147, calcium is 8.7, phosphorus 3.2, magnesium 2.0. AST 24, ALT 37, alk phos is 179. ProBNP 11,600 . Albumin is 3.4. Chest x-ray done this morning shows increase opacity of the left base ____, left lower lobe pneumonia. IMPRESSION AND PLAN: Respiratory failure requiring noninvasive ventilation, has severe pulmonary hyp ertension, severe obstructive lung disease, lung cancer, status post radiation and chemotherapy, pres ently has aspiration pneumonia with exacerbation of chronic obstructive pulmonary disease. Other iss ues are atrial fibrillation. Case discussed in detail with Dr. Singh. Decision made to start on small dose of dobutamine 1.25. May increase amiodarone to 200 mg twice a day. Will give 400 mg one dose now. Give atenolol only if blood pressure is above 100. Will continue Calan for now. The dorene ent also getting Revatio. If became hypotensive, may need to make a decision to discontinue the Nakita ioana for now and try to ____ on dobutamine to increase the right heart inotropic effect. Overall, she is critical. Continue steroids, inhaled bronchodilator, antibiotics. Gastric prophylaxis. Sequent ial compression device to lower extremity weakness. Critical care time is more than 35 minutes. Thank you and we will follow with you. Serenity Martinez MD cc: [id number] TT: 10/20/2016 16:00:39 Confirmation # [id number] Dictation # [id number]
[2016-10-20] MEDS: Cefepime IV 2 gm in NS 2 GM/100 ML BAG IVPB SCH (22:46)
--- NOTE | 2016-10-20 22:54 | PN ---
DATE: 10/20/2016 HISTORY OF PRESENT ILLNESS: The patient complaints of generalized body aches. She had fever this morning. The patient complains of persistent cough, tinted with a small amount of blood. The patient is on oxygen, but hypoxic with oxygen saturation running in mid 80s. PHYSICAL EXAMINATION: VITAL SIGNS: Her temperature at noon was 101.4, blood pressure 105/62, respiratory rate 25, and pulse 108, regular. Her oxygen saturation was 86% on 5 L of nasal cannula. GENERAL: She is sitting on the edge of the bed, alert, awake, oriented, in no acute respiratory distress. HEENT: Head is normocephalic, atraumatic. Oral mucosa is moist. NECK: Supple. LUNGS: With decreased breath sounds. There is some expiratory wheezing, improved with cough, and crackles in the both lower lungs. HEART: With regular rhythm, tachycardia of 108 per minute. ABDOMEN: Soft, nontender, nondistended. EXTREMITIES: With no edema. LABORATORY DATA: This morning showed CBC with increase of WBC to 13,000, hemoglobin improved, 9.4, hematocrit 29.4, and platelet count 199. Chemistry with normal electrolytes. Random glucose 147. Her blood cultures preliminary are negative. Repeated chest x-ray today showed right lower lung opacity, possibly atelectasis, possibly pneumonia. Increased opacity in the left base with possibility of pneumonia. No significant pleural effusion or pneumothorax. ASSESSMENT: 1. Respiratory failure with worsening cough, hypoxia. 2. Sepsis due to bilateral pneumonia. 3. Severe right dilated cardiomyopathy and pulmonary hypertension. 4. Persistent tachycardia, history of supraventricular tachycardia. 5. Anemia of chronic disease. 6. Exacerbation of chronic obstructive pulmonary disease. PLAN OF TREATMENT: Case was discussed with safety engineer pressure vessels and infectious disease specialist. Her antibiotic coverage will be changed. We will add vancomycin to her coverage, we will repeat cultures again today due to spike of temperature. The patient with history of severe right dilated cardiomyopathy and pulmonary hypertension. We will try to add small dose of dobutamine . We will increase dose of amiodarone and continue verapamil for now to prevent worsening of heart rate.. Will monitor her heart rate and blood pressure carefully. Will continue Solu-Medrol and Xopenex. Keira Keith MD cc: [id number] TT: 10/20/2016 22:53:46 Confirmation # [id number] Dictation # [id number] dn MTDD
[2016-10-21] MEDS: Levalbuterol 1.25 MG/3 ML Inhal Soln UD IH SCH ×7 (00:49→23:58)
[2016-10-21] MEDS: Ipratropium 0.02% Inhal Soln (0.5 mg/2.5 ml) UD IH SCH ×7 (00:49→23:57)
[2016-10-21 03:47] LABS: VENOUS BLOOD PH 7.25 (7.32-7.43)
[2016-10-21 03:49] LABS: VENOUS BLOOD GAS BASE EXCESS 2.5 mmol/L (0.0-2.0)
[2016-10-21 03:53] LABS: VENOUS BLOOD GAS BASE EXCESS -1.2 mmol/L (0.0-2.0); VENOUS BLOOD PH 7.32 (7.32-7.43)
[2016-10-21] MEDS: Cefepime IV 2 gm in NS 2 GM/100 ML BAG IVPB SCH ×3 (05:09→23:08)
[2016-10-21] MEDS: MethylPREDNISolone 40 mg Vial IV SCH ×3 (05:10→23:11)
[2016-10-21 05:31] LABS: ARTERIAL BLOOD GAS HCO3 26.6 mmol/L (21-28); ARTERIAL BLOOD GAS O2 CONTENT 13.4 ML/dl (15-23); ARTERIAL BLOOD GAS PH 7.41 (7.35-7.45); ARTERIAL BLOOD HGB O2 SAT 92.7 % (95.0-98.0); CARBOXYHEMOGLOBIN 2.1 % (0.5-1.5); METHEMOGLOBIN 1.3 % (0.0-3.0)
[2016-10-21 06:06] LABS: ADD MANUAL DIFF? NO
[2016-10-21 06:19] LABS: GRAN % 88.2 % (50.0-68.0); HEMATOCRIT 27.2 % (36.0-48.0); LYMPH # 0.4 (1.2-3.4); LYMPH % 2.3 % (22.0-35.0); MEAN CORPUSCULAR HEMOGLOBIN 30.1 pg (25.0-35.0); MEAN CORPUSCULAR HGB CONC 33.1 g/dl (31.0-37.0); MEAN PLATELET VOLUME 10.1 fl (7.0-11.0); MONO # 1.4 (0.1-0.6); MONO % 9.5 % (1.0-6.0); PLATELET COUNT 201 10^3/uL (120.0-450.0); WHITE BLOOD COUNT 15.1 10^3/ul (4.5-11.0)
[2016-10-21 06:48] LABS: ALKALINE PHOSPHATASE 151 U/L (38-133); ALT/SGPT 36 U/L (7-56); AST/SGOT 27 U/L (15-39); BILIRUBIN,TOTAL 0.5 mg/dL (0.2-1.3); BLOOD UREA NITROGEN 19 mg/dL (7-21); CALCIUM 8.7 mg/dL (8.4-10.5); CARBON DIOXIDE 27 mmol/L (21-33); CHLORIDE 103 mmol/L (95-110); GFR AFRICAN-AMERICAN > 60; GLUCOSE,RANDOM 149 mg/dL (70-110); MAGNESIUM 2.3 mg/dL (1.7-2.2); PHOSPHOROUS 2.8 mg/dL (2.5-4.5); POTASSIUM 4.4 mmol/L (3.6-5.0); SODIUM 138 mmol/L (132-148); TOTAL PROTEIN 6.4 g/dL (5.8-8.3)
--- NOTE | 2016-10-21 07:07 | RAD ---
HISTORY: Worsening RLL PNA COMPARISON: The 10/20/2016 FINDINGS: LUNGS: Bibasilar atelectasis versus developing infiltrates No change when IJ MediPort PLEURA: No significant pleural effusion identified, no pneumothorax apparent. CARDIOVASCULAR: Normal. OSSEOUS STRUCTURES: No significant abnormalities. VISUALIZED UPPER ABDOMEN: Normal. OTHER FINDINGS: None. IMPRESSION: Bibasilar atelectasis versus developing infiltrates
[2016-10-21] MEDS: Promethazine/Cod 6.25mg-10mg/5ml Syr UD PO PRN ×2 (07:27→20:40)
[2016-10-21] MEDS: Vancomycin 1gm in NS 250ml 1 GM/250 ML BAG IVPB SCH ×2 (07:52→17:43)
[2016-10-21] MEDS: Sildenafil 20 MG TAB PO SCH (09:10)
[2016-10-21] MEDS: Azithromycin 500MG/NS 250ml 500 MG/250 ML BAG IVPB SCH (09:11)
--- NOTE | 2016-10-21 10:29 | CP.PCM.PN ---
Subjective - Date & Time of Evaluation Date of Evaluation: 10/20/16 Time of Evaluation: 18:00 - Subjective Subjective: Patient feels tired today. Breathing unchanged from yesterday but perhaps worse when critical care team evaluated. patient denies fevers (though has documented fever of 101); chills; bowel/urinary changes; vomiting. Continues to have some increased sputum prodcution with occasional hemoptysis. Patient using bipap for good portion of day Objective - Vital Signs/Intake and Output Vital Signs (last 24 hours): Temp Pulse Resp BP Pulse Ox 98.6 F 125 H 56 H 99/67 L 91 L 10/21/16 04:00 10/21/16 09:53 10/21/16 06:20 10/21/16 09:11 10/21/16 06:20 Intake and Output: 10/21/16 10/21/16 06:59 18:59 Intake Total 660 Output Total 500 Balance 160 - Medications Medications: Current Medications Acetaminophen (Tylenol 325mg Tab) 650 mg PO Q4H PRN PRN Reason: Headache Last Admin: 10/20/16 12:42 Dose: 650 mg Amiodarone HCl (Cordarone) 200 mg PO Q12 [facility] Last Admin: 10/21/16 09:09 Dose: 200 mg Aspirin (Ecotrin) 81 mg PO DAILY [facility] Last Admin: 10/21/16 09:10 Dose: 81 mg Atenolol (Tenormin) 12.5 mg PO BID [facility] Last Admin: 10/21/16 09:11 Dose: 12.5 mg Atorvastatin Calcium (Lipitor) 40 mg PO DIN [facility] Last Admin: 10/20/16 17:59 Dose: 40 mg Benzonatate (Tessalon Perles) 100 mg PO TID [facility] Last Admin: 10/21/16 09:10 Dose: 100 mg Clopidogrel Bisulfate (Plavix) 75 mg PO DAILY [facility] Last Admin: 10/21/16 09:11 Dose: 75 mg Folic Acid (Folic Acid) 1 mg PO DAILY [facility] Last Admin: 10/21/16 09:10 Dose: 1 mg Gabapentin (Neurontin) 600 mg PO HS [facility] PRN Reason: Protocol Last Admin: 10/20/16 22:41 Dose: 600 mg Gabapentin (Neurontin) 300 mg PO PCB [facility] PRN Reason: Protocol Last Admin: 10/21/16 09:10 Dose: 300 mg Heparin Sodium (Porcine) (Heparin) 5,000 units SC Q8 [facility] Last Admin: 10/21/16 05:10 Dose: 5,000 units Azithromycin (Zithromax 500mg In Ns) 500 mg in 250 mls @ 250 mls/hr IVPB DAILY [facility] Last Admin: 10/21/16 09:11 Dose: 250 mls/hr Cefepime HCl (Maxipime 2gm) 2 gm in 100 mls @ 100 mls/hr IVPB Q8 [facility] PRN Reason: Protocol Stop: 10/25/16 14:16 Last Admin: 10/21/16 05:09 Dose: 100 mls/hr Vancomycin HCl (Vancomycin 1gm) 1 gm in 250 mls @ 167 mls/hr IVPB 0600,1800 [facility] PRN Reason: Protocol Last Admin: 10/21/16 07:52 Dose: 167 mls/hr Ipratropium [place] (Atrovent) 0.5 mg IH [id number] [facility] Last Admin: 10/21/16 07:32 Dose: 0.5 mg Levalbuterol HCl (Xopenex) 1.25 mg IH [id number] [facility] Last Admin: 10/21/16 07:32 Dose: 1.25 mg Levetiracetam (Keppra) 500 mg PO BID [facility] Last Admin: 10/21/16 09:09 Dose: 500 mg Methylprednisolone (Solu-Medrol) 40 mg IV Q8 [facility] Last Admin: 10/21/16 05:10 Dose: 40 mg Oxycodone/Acetaminophen (Percocet 5/325 Mg Tab) 1 tab PO Q6H PRN PRN Reason: Pain, severe (8-10) Stop: 10/22/16 18:52 Last Admin: 10/20/16 09:45 Dose: 1 tab Pantoprazole Sodium (Protonix Inj) 40 mg IVP DAILY [facility] Last Admin: 10/21/16 09:13 Dose: 40 mg Phenytoin Sodium (Dilantin) 100 mg PO PCB [facility] Last Admin: 10/21/16 09:11 Dose: 100 mg Phenytoin Sodium (Dilantin) 200 mg PO HS [facility] Last Admin: 10/20/16 22:43 Dose: 200 mg Promethazine HCl/Codeine (Phenergan/Codeine Oral Syrup) 5 ml PO Q4H PRN PRN Reason: Cough and congestion Last Admin: 10/21/16 07:27 Dose: 5 ml Roflumilast (Daliresp) 500 mcg PO DAILY [facility] Last Admin: 10/21/16 09:11 Dose: 500 mcg Sildenafil Citrate (Revatio) 20 mg PO BID [facility] Last Admin: 10/21/16 09:10 Dose: 20 mg Verapamil HCl (Calan Tab) 40 mg PO TID [facility] Last Admin: 10/21/16 09:10 Dose: 40 mg Verapamil HCl (Verapamil Inj) 2.5 mg IVP Q6H PRN PRN Reason: for heart rate >130 Last Admin: 10/21/16 08:13 Dose: 2.5 mg Zolpidem Tartrate (Ambien) 10 mg PO HS PRN PRN Reason: Insomnia Last Admin: 10/21/16 02:08 Dose: 10 mg - Labs Labs: 10/21/16 06:00 10/21/16 06:00 PT 11.2 Seconds (9.9-11.8) 10/17/16 11:00 INR 1.04 (0.93-1.08) 10/17/16 11:00 APTT 29.9 Seconds (23.7-30.8) 10/17/16 11:00 - Constitutional Appears: Non-toxic - Head Exam Head Exam: ATRAUMATIC, NORMAL INSPECTION, NORMOCEPHALIC - Respiratory Exam Respiratory Exam: Clear to Ausculation Bilateral. absent: Accessory Muscle Use , Wheezes, Respiratory Distress - Cardiovascular Exam Cardiovascular Exam: Tachycardia, REGULAR RHYTHM. absent: JVD - GI/Abdominal Exam GI & Abdominal Exam: Soft, Normal Bowel Sounds. 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 Patient noted to have persistent temperature today with no change in respiratory status. Vancomycin to be added in addition of cef/azithro per ID recommendations to increase spectrum of coverage. Appreciate cardiology recommendations with regards to patient hx of tachyarthymias given persistent tachycardia. #COPD exacerbation in setting of presumed pna -vanc +cef/azitrho -continue duonebs -continue bipap -guaifenexce-coedeine and prn oxycone for coughing related discomfort -appreciated pulmonary recommendations #tachycardia-- likely in part related to respiratory status and likely underlying sepsis physiology -continue cardizem -apprecated cardiology recommendations
--- NOTE | 2016-10-21 10:40 | CP.PCM.PN ---
Subjective - Date & Time of Evaluation Date of Evaluation: 10/19/16 Time of Evaluation: 21:00 - Subjective Subjective: patient states she feels that her breathing is better. Daughter at bedside. Continues to have cough. Headaches earlier in the day improved with oxycodone but now has some rib pain in setting of cough. Notes some hemoptysis after long sessions of coughing. Had low grade temp earlier today. Overall feels better but has discomfort from coughing related pain Objective - Vital Signs/Intake and Output Vital Signs (last 24 hours): Temp Pulse Resp BP Pulse Ox 98.6 F 125 H 56 H 99/67 L 91 L 10/21/16 04:00 10/21/16 09:53 10/21/16 06:20 10/21/16 09:11 10/21/16 06:20 Intake and Output: 10/21/16 10/21/16 06:59 18:59 Intake Total 660 Output Total 500 Balance 160 - Medications Medications: Current Medications Acetaminophen (Tylenol 325mg Tab) 650 mg PO Q4H PRN PRN Reason: Headache Last Admin: 10/20/16 12:42 Dose: 650 mg Amiodarone HCl (Cordarone) 200 mg PO Q12 [facility] Last Admin: 10/21/16 09:09 Dose: 200 mg Aspirin (Ecotrin) 81 mg PO DAILY [facility] Last Admin: 10/21/16 09:10 Dose: 81 mg Atenolol (Tenormin) 12.5 mg PO BID [facility] Last Admin: 10/21/16 09:11 Dose: 12.5 mg Atorvastatin Calcium (Lipitor) 40 mg PO DIN [facility] Last Admin: 10/20/16 17:59 Dose: 40 mg Benzonatate (Tessalon Perles) 100 mg PO TID [facility] Last Admin: 10/21/16 09:10 Dose: 100 mg Clopidogrel Bisulfate (Plavix) 75 mg PO DAILY [facility] Last Admin: 10/21/16 09:11 Dose: 75 mg Folic Acid (Folic Acid) 1 mg PO DAILY [facility] Last Admin: 10/21/16 09:10 Dose: 1 mg Gabapentin (Neurontin) 600 mg PO HS [facility] PRN Reason: Protocol Last Admin: 10/20/16 22:41 Dose: 600 mg Gabapentin (Neurontin) 300 mg PO PCB [facility] PRN Reason: Protocol Last Admin: 10/21/16 09:10 Dose: 300 mg Heparin Sodium (Porcine) (Heparin) 5,000 units SC Q8 [facility] Last Admin: 10/21/16 05:10 Dose: 5,000 units Azithromycin (Zithromax 500mg In Ns) 500 mg in 250 mls @ 250 mls/hr IVPB DAILY [facility] Last Admin: 10/21/16 09:11 Dose: 250 mls/hr Cefepime HCl (Maxipime 2gm) 2 gm in 100 mls @ 100 mls/hr IVPB Q8 [facility] PRN Reason: Protocol Stop: 10/25/16 14:16 Last Admin: 10/21/16 05:09 Dose: 100 mls/hr Vancomycin HCl (Vancomycin 1gm) 1 gm in 250 mls @ 167 mls/hr IVPB 0600,1800 [facility] PRN Reason: Protocol Last Admin: 10/21/16 07:52 Dose: 167 mls/hr Ipratropium [place] (Atrovent) 0.5 mg IH [id number] [facility] Last Admin: 10/21/16 07:32 Dose: 0.5 mg Levalbuterol HCl (Xopenex) 1.25 mg IH [id number] [facility] Last Admin: 10/21/16 07:32 Dose: 1.25 mg Levetiracetam (Keppra) 500 mg PO BID [facility] Last Admin: 10/21/16 09:09 Dose: 500 mg Methylprednisolone (Solu-Medrol) 40 mg IV Q8 [facility] Last Admin: 10/21/16 05:10 Dose: 40 mg Oxycodone/Acetaminophen (Percocet 5/325 Mg Tab) 1 tab PO Q6H PRN PRN Reason: Pain, severe (8-10) Stop: 10/22/16 18:52 Last Admin: 10/20/16 09:45 Dose: 1 tab Pantoprazole Sodium (Protonix Inj) 40 mg IVP DAILY [facility] Last Admin: 10/21/16 09:13 Dose: 40 mg Phenytoin Sodium (Dilantin) 100 mg PO PCB [facility] Last Admin: 10/21/16 09:11 Dose: 100 mg Phenytoin Sodium (Dilantin) 200 mg PO HS [facility] Last Admin: 10/20/16 22:43 Dose: 200 mg Promethazine HCl/Codeine (Phenergan/Codeine Oral Syrup) 5 ml PO Q4H PRN PRN Reason: Cough and congestion Last Admin: 10/21/16 07:27 Dose: 5 ml Roflumilast (Daliresp) 500 mcg PO DAILY [facility] Last Admin: 10/21/16 09:11 Dose: 500 mcg Sildenafil Citrate (Revatio) 20 mg PO BID [facility] Last Admin: 10/21/16 09:10 Dose: 20 mg Verapamil HCl (Calan Tab) 40 mg PO TID [facility] Last Admin: 10/21/16 09:10 Dose: 40 mg Verapamil HCl (Verapamil Inj) 2.5 mg IVP Q6H PRN PRN Reason: for heart rate >130 Last Admin: 10/21/16 08:13 Dose: 2.5 mg Zolpidem Tartrate (Ambien) 10 mg PO HS PRN PRN Reason: Insomnia Last Admin: 10/21/16 02:08 Dose: 10 mg - Labs Labs: 10/21/16 06:00 10/21/16 06:00 PT 11.2 Seconds (9.9-11.8) 10/17/16 11:00 INR 1.04 (0.93-1.08) 10/17/16 11:00 APTT 29.9 Seconds (23.7-30.8) 10/17/16 11:00 - Constitutional Appears: Non-toxic - Head Exam Head Exam: ATRAUMATIC, NORMAL INSPECTION, NORMOCEPHALIC - Respiratory Exam Respiratory Exam: Clear to Ausculation Bilateral, NORMAL BREATHING PATTERN - Cardiovascular Exam Cardiovascular Exam: Tachycardia, REGULAR RHYTHM - GI/Abdominal Exam GI & Abdominal Exam: Soft, Normal Bowel Sounds. absent: Tenderness - Extremities Exam Extremities Exam: Full ROM, Normal Capillary Refill, Normal Inspection. 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 Patient has some pain related to persistent coughing- now started on pain medications and anti- tussives. Noted to have some hemptopysis. In setting of persistent tachycardia and hempotysis PE is potentially on differential but given infiltrates seen and hx of lung cancer it is perhaps less likely at present. Daughter at bedside and we discussed with patient and daughter the patient's hospital course and treatment. All questions were answered. #COPD exacerbation in setting of PNa -continue cef/azitrho -repeat cultures given persistent fevers -appreciated ID recommendations -continue bipap and duonebs; appreciated pulmonary recs #tachycardia -continue with diltazem per cardiology; appreciated their recomedtioan #Other -continue ppx heparin ppx
--- NOTE | 2016-10-21 12:33 | CARD ---
APPROVED REPORT EKG Measurement Heart [id number] [id number] [id number] <Conclusion> Sinus tachycardia with 1st degree AV block Rightward axis Nonspecific ST and T wave abnormality Abnormal ECG
--- NOTE | 2016-10-21 12:57 | CP.CCUPN ---
<Reinaldo Kiran - Last Filed: 10/21/16 12:52> CCU Subjective - Physician Review Events Since Last Encounter (Free Text): 10/21/16 12:52 Reinaldo Kiran D.O. PGY-1, Internal Medicine Resident, ICU Progress Note 61 year old female with a PMH of COPD, LLL pulm non-small cell CA Stage IIIB currently on maintenance chemo, HTN, CAD with bare metal stents in the past, PAD with femoral stents, seizures, benign brain CA (dermoid) tumor) s/p resection, who presented to [facility] [place] [facility] [place] [facility] on [place]/17/16 after about two weeks of worsening SOB, fevers, chills, and productive cough with yellow-green sputum. Patient was seen and examined at bedside. Patient somewhat uncomfortable at this time, states that she is having some chest pain but that her cough and headaches have improved. Patient did spike a fever of 101.4 over the weekend and had cultures drawn. CCU Objective - Vital Signs / Intake & Output Vital Signs (Last 4 hours): Vital Signs Pulse BP 10/21/16 09:53 125 H 10/21/16 09:11 130 H 99/67 L 10/21/16 09:10 130 H 99/67 L 10/21/16 09:09 130 H 99/67 L Intake and Output (Last 8hrs): Intake & Output 10/20/16 10/21/16 10/21/16 22:59 06:59 14:59 Intake Total 485 660 Output Total 500 500 Balance -15 160 Intake: IV 285 260 Right Subclavian 285 260 Oral 200 400 Output: Urine 500 500 Urine, Voided 500 500 Other: # Bowel Movements 0 - Physical Exam Head: Positive for: Normocephalic, Other (postsurgical changes from bifrontral crani) Pupils: Positive for: PERRL Extroacular Muscles: Positive for: EOMI Conjunctiva: Positive for: Normal. Negative for: Injected, Icteric Ears: Positive for: Normal Mouth: Positive for: Moist Mucous Membranes, Normal Tounge, Normal Teeth Pharnyx: Positive for: Normal. Negative for: ERYTHEMA, EXUDATE Nose (External): Positive for: Atraumatic Neck: Negative for: JVD, Lymphadenopathy Respiratory/Chest: Positive for: Wheezes (mild bibasilar), Decreased Breath Sounds, Rhonchi (mild LLL). Negative for: Respiratory Distress, Accessory Muscle Use, Rales Cardiovascular: Positive for: Irregular Rhythm. Negative for: Rub, Gallop Abdomen: Positive for: Normal Bowel Sounds. Negative for: Tenderness, Distention, Peritoneal Signs Back: Negative for: CVA Tenderness, Midline Tenderness, Paraspinal Tenderness Upper Extremity: Positive for: Normal Inspection, Capillary Refill < 2s. Negative for: Cyanosis, Edema Lower Extremity: Negative for: Tenderness, Swelling Neurological: Positive for: GCS=15, CN II-XII Intact, Speech Normal, Motor Func Grossly Intact Skin: Positive for: Warm, Dry Lymphatic: Negative for: Cervical Adenopathy - Medications Active Medications: Active Medications Generic Name Dose Route Start Last Admin Trade Name Freq PRN Reason Stop Dose Admin Acetaminophen 650 mg 10/19/16 10:19 10/20/16 12:42 Tylenol 325mg Tab PO 650 mg Q4H PRN Administration Headache Amiodarone HCl 200 mg 10/20/16 22:00 10/21/16 09:09 Cordarone PO 200 mg Q12 DANICA Administration Aspirin 81 mg 10/18/16 10:00 10/21/16 09:10 Ecotrin PO 81 mg DAILY DANICA Administration Atenolol 12.5 mg 10/18/16 10:00 10/21/16 09:11 Tenormin PO 12.5 mg BID DANICA Administration Atorvastatin Calcium 40 mg 10/18/16 17:00 10/20/16 17:59 Lipitor PO 40 mg DIN DANICA Administration Benzonatate 100 mg 10/20/16 10:00 10/21/16 09:10 Tessalon Perles PO 100 mg TID DANICA Administration Clopidogrel Bisulfate 75 mg 10/18/16 10:00 10/21/16 09:11 Plavix PO 75 mg DAILY DANICA Administration Folic Acid 1 mg 10/18/16 10:00 10/21/16 09:10 Folic Acid PO 1 mg DAILY DANICA Administration Gabapentin 600 mg 10/18/16 22:00 10/20/16 22:41 Neurontin PO 600 mg HS DANICA Administration Protocol Gabapentin 300 mg 10/21/16 09:00 10/21/16 09:10 Neurontin PO 300 mg PCB DANICA Administration Protocol Heparin Sodium (Porcine) 5,000 units 10/17/16 22:00 10/21/16 05:10 Heparin SC 5,000 units Q8 DANCIA Administration Azithromycin 500 mg in 250 mls @ 250 mls/hr 10/18/16 10:00 10/21/16 09:11 Zithromax 500mg In Ns IVPB 250 mls/hr DAILY DANICA Administration Cefepime HCl 2 gm in 100 mls @ 100 mls/hr 10/20/16 14:15 10/21/16 05:09 Maxipime 2gm IVPB 10/25/16 14:16 100 mls/hr Q8 DANICA Administration Protocol Vancomycin HCl 1 gm in 250 mls @ 167 mls/hr 10/20/16 18:10 10/21/16 07:52 Vancomycin 1gm IVPB 167 mls/hr 0600,1800 DANICA Administration Protocol Ipratropium Oelrichs 0.5 mg 10/19/16 09:15 10/21/16 11:26 Atrovent IH 0.5 mg [id number] DANICA Administration Levalbuterol HCl 1.25 mg 10/19/16 09:15 10/21/16 11:26 Xopenex IH 1.25 mg [id number] DANICA Administration Levetiracetam 500 mg 10/18/16 10:00 10/21/16 09:09 Keppra PO 500 mg BID DANICA Administration Methylprednisolone 40 mg 10/17/16 22:00 10/21/16 05:10 Solu-Medrol IV 40 mg Q8 DANICA Administration Oxycodone/Acetaminophen 1 tab 10/19/16 18:51 10/20/16 09:45 Percocet 5/325 Mg Tab PO 10/22/16 18:52 1 tab Q6H PRN Administration Pain, severe (8-10) Pantoprazole Sodium 40 mg 10/18/16 10:00 10/21/16 09:13 Protonix Inj IVP 40 mg DAILY DANICA Administration Phenytoin Sodium 100 mg 10/18/16 09:00 10/21/16 09:11 Dilantin PO 100 mg PCB DANICA Administration Phenytoin Sodium 200 mg 10/18/16 22:00 10/20/16 22:43 Dilantin PO 200 mg HS DANICA Administration Promethazine HCl/Codeine 5 ml 10/20/16 06:55 10/21/16 07:27 Phenergan/Codeine Oral Syrup PO 5 ml Q4H PRN Administration Cough and congestion Roflumilast 500 mcg 10/18/16 10:00 10/21/16 09:11 Daliresp PO 500 mcg DAILY DANICA Administration Sildenafil Citrate 20 mg 10/18/16 10:00 10/21/16 09:10 Revatio PO 20 mg BID DANICA Administration Verapamil HCl 40 mg 10/18/16 10:00 10/21/16 09:10 Calan Tab PO 40 mg TID DANICA Administration Verapamil HCl 2.5 mg 10/18/16 09:11 10/21/16 08:13 Verapamil Inj IVP 2.5 mg Q6H PRN Administration for heart rate >130 Zolpidem Tartrate 10 mg 10/17/16 21:46 10/21/16 02:08 Ambien PO 10 mg HS PRN Administration Insomnia - Patient Studies Lab Studies: Microbiology Studies 10/20/16 18:15 Gram Stain - Final Sputum Lab Studies 10/21/16 10/21/16 10/21/16 Range/Units 06:00 06:00 05:20 WBC 15.1 H (4.5-11.0) 10^3/ul RBC 2.99 L (3.5-6.1) 10^6/uL Hgb 9.0 L (12.0-16.0) gm/dL Hct 27.2 L (36.0-48.0) % MCV 91.0 (80.0-105.0) fL MCH 30.1 (25.0-35.0) pg MCHC 33.1 (31.0-37.0) g/dl RDW 17.0 H (11.5-14.5) % Plt Count 201 (120.0-450.0) 10^3/uL MPV 10.1 (7.0-11.0) fl Gran % 88.2 H (50.0-68.0) % Lymph % (Auto) 2.3 L (22.0-35.0) % Smith % (Auto) 9.5 H (1.0-6.0) % Eos % (Auto) 0.0 L (1.5-5.0) % Baso % (Auto) 0.0 (0.0-3.0) % Gran # 13.30 H (1.4-6.5) Lymph # 0.4 L (1.2-3.4) Smith # 1.4 H (0.1-0.6) Eos # 0.0 (0.0-0.7) Baso # 0.00 (0.0-2.0) K/mm3 pCO2 42 (35-45) mm/Hg pO2 67.0 L (80-100) mm/Hg HCO3 26.6 (21-28) mmol/L ABG pH 7.41 (7.35-7.45) ABG Total CO2 27.9 (22-28) mmol.L ABG O2 Saturation 95.9 (95-98) % ABG O2 Content 13.4 L (15-23) ML/dl ABG Base Excess 1.7 (-2.0-3.0) mmol/L ABG Hemoglobin 10.2 L (11.7-17.4) g/dL ABG Carboxyhemoglobin 2.1 H (0.5-1.5) % POC ABG HHb (Measured) 4.0 (0-5) % ABG Methemoglobin 1.3 (0.0-3.0) % ABG O2 Capacity 14.0 L (16-24) mL/dl Hgb O2 Saturation 92.7 L (95.0-98.0) % FiO2 50.0 % Sodium 138 (132-148) mmol/L Potassium 4.4 (3.6-5.0) mmol/L Chloride 103 (95-110) mmol/L Carbon Dioxide 27 (21-33) mmol/L Anion Gap 12 (10-20) BUN 19 (7-21) mg/dL Creatinine 1.0 (0.5-1.4) mg/dL Est GFR ( Amer) > 60 Est GFR (Non-Af Amer) 56 POC Glucose (mg/dL) (65-110) mg/dL Random Glucose 149 H (70-110) mg/dL Calcium 8.7 (8.4-10.5) mg/dL Phosphorus 2.8 (2.5-4.5) mg/dL Magnesium 2.3 H (1.7-2.2) mg/dL Total Bilirubin 0.5 (0.2-1.3) mg/dL AST 27 (15-39) U/L ALT 36 (7-56) U/L Alkaline Phosphatase 151 H (38-133) U/L Total Protein 6.4 (5.8-8.3) g/dL Albumin 3.2 (3.0-4.8) g/dL Globulin 3.2 gm/dL Albumin/Globulin Ratio 1.0 L (1.1-1.8) Procalcitonin (0.19-0.49) NG/ML 10/20/16 10/19/16 Range/Units 14:10 11:45 WBC (4.5-11.0) 10^3/ul RBC (3.5-6.1) 10^6/uL Hgb (12.0-16.0) gm/dL Hct (36.0-48.0) % MCV (80.0-105.0) fL MCH (25.0-35.0) pg MCHC (31.0-37.0) g/dl RDW (11.5-14.5) % Plt Count (120.0-450.0) 10^3/uL MPV (7.0-11.0) fl Gran % (50.0-68.0) % Lymph % (Auto) (22.0-35.0) % Smith % (Auto) (1.0-6.0) % Eos % (Auto) (1.5-5.0) % Baso % (Auto) (0.0-3.0) % Gran # (1.4-6.5) Lymph # (1.2-3.4) Smith # (0.1-0.6) Eos # (0.0-0.7) Baso # (0.0-2.0) K/mm3 pCO2 (35-45) mm/Hg pO2 (80-100) mm/Hg HCO3 (21-28) mmol/L ABG pH (7.35-7.45) ABG Total CO2 (22-28) mmol.L ABG O2 Saturation (95-98) % ABG O2 Content (15-23) ML/dl ABG Base Excess (-2.0-3.0) mmol/L ABG Hemoglobin (11.7-17.4) g/dL ABG Carboxyhemoglobin (0.5-1.5) % POC ABG HHb (Measured) (0-5) % ABG Methemoglobin (0.0-3.0) % ABG O2 Capacity (16-24) mL/dl Hgb O2 Saturation (95.0-98.0) % FiO2 % Sodium (132-148) mmol/L Potassium (3.6-5.0) mmol/L Chloride (95-110) mmol/L Carbon Dioxide (21-33) mmol/L Anion Gap (10-20) BUN (7-21) mg/dL Creatinine (0.5-1.4) mg/dL Est GFR ( Amer) Est GFR (Non-Af Amer) POC Glucose (mg/dL) 165 H (65-110) mg/dL Random Glucose (70-110) mg/dL Calcium (8.4-10.5) mg/dL Phosphorus (2.5-4.5) mg/dL Magnesium (1.7-2.2) mg/dL Total Bilirubin (0.2-1.3) mg/dL AST (15-39) U/L ALT (7-56) U/L Alkaline Phosphatase (38-133) U/L Total Protein (5.8-8.3) g/dL Albumin (3.0-4.8) g/dL Globulin gm/dL Albumin/Globulin Ratio (1.1-1.8) Procalcitonin 0.84 H (0.19-0.49) NG/ML Laboratory Results - last 24 hr 10/19/16 10/20/16 10/21/16 11:45 14:10 05:20 WBC RBC Hgb Hct MCV MCH MCHC RDW Plt Count MPV Gran % Lymph % (Auto) Smith % (Auto) Eos % (Auto) Baso % (Auto) Gran # Lymph # Smith # Eos # Baso # pCO2 42 pO2 67.0 L HCO3 26.6 ABG pH 7.41 ABG Total CO2 27.9 ABG O2 Saturation 95.9 ABG O2 Content 13.4 L ABG Base Excess 1.7 ABG Hemoglobin 10.2 L ABG Carboxyhemoglobin 2.1 H POC ABG HHb (Measured) 4.0 ABG Methemoglobin 1.3 ABG O2 Capacity 14.0 L Hgb O2 Saturation 92.7 L FiO2 50.0 Sodium Potassium Chloride Carbon Dioxide Anion Gap BUN Creatinine Est GFR ( Amer) Est GFR (Non-Af Amer) POC Glucose (mg/dL) 165 H Random Glucose Calcium Phosphorus Magnesium Total Bilirubin AST ALT Alkaline Phosphatase Total Protein Albumin Globulin Albumin/Globulin Ratio Procalcitonin 0.84 H 10/21/16 10/21/16 06:00 06:00 WBC 15.1 H RBC 2.99 L Hgb 9.0 L Hct 27.2 L MCV 91.0 MCH 30.1 MCHC 33.1 RDW 17.0 H Plt Count 201 MPV 10.1 Gran % 88.2 H Lymph % (Auto) 2.3 L Smith % (Auto) 9.5 H Eos % (Auto) 0.0 L Baso % (Auto) 0.0 Gran # 13.30 H Lymph # 0.4 L Smith # 1.4 H Eos # 0.0 Baso # 0.00 pCO2 pO2 HCO3 ABG pH ABG Total CO2 ABG O2 Saturation ABG O2 Content ABG Base Excess ABG Hemoglobin ABG Carboxyhemoglobin POC ABG HHb (Measured) ABG Methemoglobin ABG O2 Capacity Hgb O2 Saturation FiO2 Sodium 138 Potassium 4.4 Chloride 103 Carbon Dioxide 27 Anion Gap 12 BUN 19 Creatinine 1.0 Est GFR ( Amer) > 60 Est GFR (Non-Af Amer) 56 POC Glucose (mg/dL) Random Glucose 149 H Calcium 8.7 Phosphorus 2.8 Magnesium 2.3 H Total Bilirubin 0.5 AST 27 ALT 36 Alkaline Phosphatase 151 H Total Protein 6.4 Albumin 3.2 Globulin 3.2 Albumin/Globulin Ratio 1.0 L Procalcitonin EKG/Cardiology Studies: Cardiology / EKG Studies 10/21/16 09:06 EKG [ELECTROCARDIOGRAM] Stat Comment: Reason For Exam: chest pain Results Reviewed to Date: Yes Review of Systems - Review of Systems All systems: reviewed and no additional remarkable complaints except - Cardiovascular Cardiovascular: Chest Pain. absent: Diaphoresis Critical Care Progress Note - Prophylaxis GI Prophylaxis GI: PPI - Prophylaxis DVT Prophylaxis DVT: Heparin SQ - Nutrition Nutrition: Nutrition Category Date Time Status Heart Healthy Diet [DIET] Diets 10/18/16 Breakfast Ordered Assessment/Plan - Assessment and Plan (Free Text) Assessment: 61 year old female presenting with about two weeks of worsening SOB, fevers, chills, and productive cough with yellow-green sputum, found to have worsening COPD, BL PNA, and A-fib in RVR. Plan: Neurological AAOx4, nonfocal, protecting airway Seizures disorder, cont dilantin and keppra Cardiovascular Cardio following Afib now on verapamil 40 TID and PRN, back on amio now that BP improved CAD w stents continue ASA, lipitor and atenolol Had STAT EKG done due to chest pain, no changes compared to old EKGs Known EF 55-60% Pulmonary On BIPAP overnight and PRN, still has some resp problems at times On azithro D4, cefepime D2, vanco D2, added broad spectrum after had fevers yesterday and had elevated Procal, repeat in 2 days Pulm HTN on Revatio but holding due to headaches Continue solumedrol 40q8 Continue danica and prn nebs and roflumilast Pulm following, appreciate recs IS, [id number], PT seeing Renal/ Fluids / Electrolytes No electrolyte imbalances since admission Continue to maintain euvolemia GI On heart healthy, tolerating, no issues at this time GI ppx Infectious disease CXR relatively unchanged, on management as above Blood and sputum cultures negative thus far ID following, appreciate recs, repeat procal in 2 days, monitor fevers, leukocytosis but on solumedrol Hematology/Oncology On maintenance chemo as outpatient with Dr. Gomez Hem/Onc following, recs appreciated No acute issues, anemia of chronic disease which is stable Endocrine Maintain euglycemia Prophylaxis PPI/SCDs Patient was seen and examined and case was discussed at length with attending physician. - Date & Time Date: 10/21/16 Time: 09:30 <Ramses Mendoza MD H - Last Filed: 10/21/16 15:27> CCU Objective - Vital Signs / Intake & Output Vital Signs (Last 4 hours): Vital Signs Pulse BP 10/21/16 13:20 90 90/65 L Intake and Output (Last 8hrs): Intake & Output 10/21/16 10/21/16 10/21/16 06:59 14:59 22:59 Intake Total 660 Output Total 500 Balance 160 Intake: IV 260 Right Subclavian 260 Oral 400 Output: Urine 500 Urine, Voided 500 - Medications Active Medications: Active Medications Generic Name Dose Route Start Last Admin Trade Name Freq PRN Reason Stop Dose Admin Acetaminophen 650 mg 10/19/16 10:19 10/20/16 12:42 Tylenol 325mg Tab PO 650 mg Q4H PRN Administration Headache Amiodarone HCl 200 mg 10/20/16 22:00 10/21/16 09:09 Cordarone PO 200 mg Q12 DANICA Administration Aspirin 81 mg 10/18/16 10:00 10/21/16 09:10 Ecotrin PO 81 mg DAILY DANICA Administration Atenolol 12.5 mg 10/18/16 10:00 10/21/16 09:11 Tenormin PO 12.5 mg BID DANICA Administration Atorvastatin Calcium 40 mg 10/18/16 17:00 10/20/16 17:59 Lipitor PO 40 mg DIN DANICA Administration Benzonatate 100 mg 10/20/16 10:00 10/21/16 13:18 Tessalon Perles PO 100 mg TID DANICA Administration Clopidogrel Bisulfate 75 mg 10/18/16 10:00 10/21/16 09:11 Plavix PO 75 mg DAILY DANICA Administration Digoxin 0.25 mg 10/21/16 19:00 Lanoxin IVP 10/21/16 19:01 ONCE ONE Folic Acid 1 mg 10/18/16 10:00 10/21/16 09:10 Folic Acid PO 1 mg DAILY DANICA Administration Gabapentin 600 mg 10/18/16 22:00 10/20/16 22:41 Neurontin PO 600 mg HS DANICA Administration Protocol Gabapentin 300 mg 10/21/16 09:00 10/21/16 09:10 Neurontin PO 300 mg PCB DANICA Administration Protocol Heparin Sodium (Porcine) 5,000 units 10/17/16 22:00 10/21/16 13:19 Heparin SC 5,000 units Q8 DANICA Administration Azithromycin 500 mg in 250 mls @ 250 mls/hr 10/18/16 10:00 10/21/16 09:11 Zithromax 500mg In Ns IVPB 250 mls/hr DAILY DANICA Administration Cefepime HCl 2 gm in 100 mls @ 100 mls/hr 10/20/16 14:15 10/21/16 13:28 Maxipime 2gm IVPB 10/25/16 14:16 100 mls/hr Q8 DANICA Administration Protocol Vancomycin HCl 1 gm in 250 mls @ 167 mls/hr 10/20/16 18:10 10/21/16 07:52 Vancomycin 1gm IVPB 167 mls/hr 0600,1800 DANICA Administration Protocol Ipratropium Oelrichs 0.5 mg 10/19/16 09:15 10/21/16 11:26 Atrovent IH 0.5 mg [id number] DANICA Administration Levalbuterol HCl 1.25 mg 10/19/16 09:15 10/21/16 11:26 Xopenex IH 1.25 mg [id number] DANICA Administration Levetiracetam 500 mg 10/18/16 10:00 10/21/16 09:09 Keppra PO 500 mg BID DANICA Administration Methylprednisolone 40 mg 10/17/16 22:00 10/21/16 13:19 Solu-Medrol IV 40 mg Q8 DANICA Administration Oxycodone/Acetaminophen 1 tab 10/19/16 18:51 10/20/16 09:45 Percocet 5/325 Mg Tab PO 10/22/16 18:52 1 tab Q6H PRN Administration Pain, severe (8-10) Pantoprazole Sodium 40 mg 10/18/16 10:00 10/21/16 09:13 Protonix Inj IVP 40 mg DAILY DANICA Administration Phenytoin Sodium 100 mg 10/18/16 09:00 10/21/16 09:11 Dilantin PO 100 mg PCB DANICA Administration Phenytoin Sodium 200 mg 10/18/16 22:00 10/20/16 22:43 Dilantin PO 200 mg HS DANICA Administration Promethazine HCl/Codeine 5 ml 10/20/16 06:55 10/21/16 07:27 Phenergan/Codeine Oral Syrup PO 5 ml Q4H PRN Administration Cough and congestion Roflumilast 500 mcg 10/18/16 10:00 10/21/16 09:11 Daliresp PO 500 mcg DAILY DANICA Administration Sildenafil Citrate 20 mg 10/18/16 10:00 10/21/16 09:10 Revatio PO 20 mg BID DANICA Administration Verapamil HCl 40 mg 10/18/16 10:00 10/21/16 13:20 Calan Tab PO 40 mg TID DANICA Administration Verapamil HCl 2.5 mg 10/18/16 09:11 10/21/16 08:13 Verapamil Inj IVP 2.5 mg Q6H PRN Administration for heart rate >130 Zolpidem Tartrate 10 mg 10/17/16 21:46 10/21/16 02:08 Ambien PO 10 mg HS PRN Administration Insomnia - Patient Studies Lab Studies: Microbiology Studies 10/20/16 13:10 Blood Culture - Preliminary Blood NO GROWTH AFTER 24 HOURS 10/20/16 18:15 Gram Stain - Final Sputum Lab Studies 10/21/16 10/21/16 10/21/16 Range/Units 06:00 06:00 05:20 WBC 15.1 H (4.5-11.0) 10^3/ul RBC 2.99 L (3.5-6.1) 10^6/uL Hgb 9.0 L (12.0-16.0) gm/dL Hct 27.2 L (36.0-48.0) % MCV 91.0 (80.0-105.0) fL MCH 30.1 (25.0-35.0) pg MCHC 33.1 (31.0-37.0) g/dl RDW 17.0 H (11.5-14.5) % Plt Count 201 (120.0-450.0) 10^3/uL MPV 10.1 (7.0-11.0) fl Gran % 88.2 H (50.0-68.0) % Lymph % (Auto) 2.3 L (22.0-35.0) % Smith % (Auto) 9.5 H (1.0-6.0) % Eos % (Auto) 0.0 L (1.5-5.0) % Baso % (Auto) 0.0 (0.0-3.0) % Gran # 13.30 H (1.4-6.5) Lymph # 0.4 L (1.2-3.4) Smith # 1.4 H (0.1-0.6) Eos # 0.0 (0.0-0.7) Baso # 0.00 (0.0-2.0) K/mm3 pCO2 42 (35-45) mm/Hg pO2 67.0 L (80-100) mm/Hg HCO3 26.6 (21-28) mmol/L ABG pH 7.41 (7.35-7.45) ABG Total CO2 27.9 (22-28) mmol.L ABG O2 Saturation 95.9 (95-98) % ABG O2 Content 13.4 L (15-23) ML/dl ABG Base Excess 1.7 (-2.0-3.0) mmol/L ABG Hemoglobin 10.2 L (11.7-17.4) g/dL ABG Carboxyhemoglobin 2.1 H (0.5-1.5) % POC ABG HHb (Measured) 4.0 (0-5) % ABG Methemoglobin 1.3 (0.0-3.0) % ABG O2 Capacity 14.0 L (16-24) mL/dl Hgb O2 Saturation 92.7 L (95.0-98.0) % FiO2 50.0 % Sodium 138 (132-148) mmol/L Potassium 4.4 (3.6-5.0) mmol/L Chloride 103 (95-110) mmol/L Carbon Dioxide 27 (21-33) mmol/L Anion Gap 12 (10-20) BUN 19 (7-21) mg/dL Creatinine 1.0 (0.5-1.4) mg/dL Est GFR ( Amer) > 60 Est GFR (Non-Af Amer) 56 POC Glucose (mg/dL) (65-110) mg/dL Random Glucose 149 H (70-110) mg/dL Calcium 8.7 (8.4-10.5) mg/dL Phosphorus 2.8 (2.5-4.5) mg/dL Magnesium 2.3 H (1.7-2.2) mg/dL Total Bilirubin 0.5 (0.2-1.3) mg/dL AST 27 (15-39) U/L ALT 36 (7-56) U/L Alkaline Phosphatase 151 H (38-133) U/L Total Protein 6.4 (5.8-8.3) g/dL Albumin 3.2 (3.0-4.8) g/dL Globulin 3.2 gm/dL Albumin/Globulin Ratio 1.0 L (1.1-1.8) Procalcitonin (0.19-0.49) NG/ML 10/20/16 10/19/16 Range/Units 14:10 11:45 WBC (4.5-11.0) 10^3/ul RBC (3.5-6.1) 10^6/uL Hgb (12.0-16.0) gm/dL Hct (36.0-48.0) % MCV (80.0-105.0) fL MCH (25.0-35.0) pg MCHC (31.0-37.0) g/dl RDW (11.5-14.5) % Plt Count (120.0-450.0) 10^3/uL MPV (7.0-11.0) fl Gran % (50.0-68.0) % Lymph % (Auto) (22.0-35.0) % Smith % (Auto) (1.0-6.0) % Eos % (Auto) (1.5-5.0) % Baso % (Auto) (0.0-3.0) % Gran # (1.4-6.5) Lymph # (1.2-3.4) Smith # (0.1-0.6) Eos # (0.0-0.7) Baso # (0.0-2.0) K/mm3 pCO2 (35-45) mm/Hg pO2 (80-100) mm/Hg HCO3 (21-28) mmol/L ABG pH (7.35-7.45) ABG Total CO2 (22-28) mmol.L ABG O2 Saturation (95-98) % ABG O2 Content (15-23) ML/dl ABG Base Excess (-2.0-3.0) mmol/L ABG Hemoglobin (11.7-17.4) g/dL ABG Carboxyhemoglobin (0.5-1.5) % POC ABG HHb (Measured) (0-5) % ABG Methemoglobin (0.0-3.0) % ABG O2 Capacity (16-24) mL/dl Hgb O2 Saturation (95.0-98.0) % FiO2 % Sodium (132-148) mmol/L Potassium (3.6-5.0) mmol/L Chloride (95-110) mmol/L Carbon Dioxide (21-33) mmol/L Anion Gap (10-20) BUN (7-21) mg/dL Creatinine (0.5-1.4) mg/dL Est GFR ( Amer) Est GFR (Non-Af Amer) POC Glucose (mg/dL) 165 H (65-110) mg/dL Random Glucose (70-110) mg/dL Calcium (8.4-10.5) mg/dL Phosphorus (2.5-4.5) mg/dL Magnesium (1.7-2.2) mg/dL Total Bilirubin (0.2-1.3) mg/dL AST (15-39) U/L ALT (7-56) U/L Alkaline Phosphatase (38-133) U/L Total Protein (5.8-8.3) g/dL Albumin (3.0-4.8) g/dL Globulin gm/dL Albumin/Globulin Ratio (1.1-1.8) Procalcitonin 0.84 H (0.19-0.49) NG/ML Laboratory Results - last 24 hr 10/19/16 10/20/16 10/21/16 11:45 14:10 05:20 WBC RBC Hgb Hct MCV MCH MCHC RDW Plt Count MPV Gran % Lymph % (Auto) Smith % (Auto) Eos % (Auto) Baso % (Auto) Gran # Lymph # Smith # Eos # Baso # pCO2 42 pO2 67.0 L HCO3 26.6 ABG pH 7.41 ABG Total CO2 27.9 ABG O2 Saturation 95.9 ABG O2 Content 13.4 L ABG Base Excess 1.7 ABG Hemoglobin 10.2 L ABG Carboxyhemoglobin 2.1 H POC ABG HHb (Measured) 4.0 ABG Methemoglobin 1.3 ABG O2 Capacity 14.0 L Hgb O2 Saturation 92.7 L FiO2 50.0 Sodium Potassium Chloride Carbon Dioxide Anion Gap BUN Creatinine Est GFR ( Amer) Est GFR (Non-Af Amer) POC Glucose (mg/dL) 165 H Random Glucose Calcium Phosphorus Magnesium Total Bilirubin AST ALT Alkaline Phosphatase Total Protein Albumin Globulin Albumin/Globulin Ratio Procalcitonin 0.84 H 10/21/16 10/21/16 06:00 06:00 WBC 15.1 H RBC 2.99 L Hgb 9.0 L Hct 27.2 L MCV 91.0 MCH 30.1 MCHC 33.1 RDW 17.0 H Plt Count 201 MPV 10.1 Gran % 88.2 H Lymph % (Auto) 2.3 L Smith % (Auto) 9.5 H Eos % (Auto) 0.0 L Baso % (Auto) 0.0 Gran # 13.30 H Lymph # 0.4 L Smith # 1.4 H Eos # 0.0 Baso # 0.00 pCO2 pO2 HCO3 ABG pH ABG Total CO2 ABG O2 Saturation ABG O2 Content ABG Base Excess ABG Hemoglobin ABG Carboxyhemoglobin POC ABG HHb (Measured) ABG Methemoglobin ABG O2 Capacity Hgb O2 Saturation FiO2 Sodium 138 Potassium 4.4 Chloride 103 Carbon Dioxide 27 Anion Gap 12 BUN 19 Creatinine 1.0 Est GFR ( Amer) > 60 Est GFR (Non-Af Amer) 56 POC Glucose (mg/dL) Random Glucose 149 H Calcium 8.7 Phosphorus 2.8 Magnesium 2.3 H Total Bilirubin 0.5 AST 27 ALT 36 Alkaline Phosphatase 151 H Total Protein 6.4 Albumin 3.2 Globulin 3.2 Albumin/Globulin Ratio 1.0 L Procalcitonin EKG/Cardiology Studies: Cardiology / EKG Studies 10/21/16 09:06 EKG [ELECTROCARDIOGRAM] Stat Comment: Reason For Exam: chest pain Critical Care Progress Note - Nutrition Nutrition: Nutrition Category Date Time Status Heart Healthy Diet [DIET] Diets 10/18/16 Breakfast Ordered Attending/Attestation - Attestation I have personally seen and examined this patient.: Yes I have fully participated in the care of the patient.: Yes I have reviewed all pertinent clinical information: Yes Notes (Text): 10/21/16 15:20 61 y/o F w/ 3B lung ca w/ Pulmonary HTn and post obstructive PNA. On empiric ABX, BD, Chest PT and PRN BIPAP as needed. Started on Sildenefil on friday which may have contributed to the headache and hypotension . Also was started on Dobutamine over the weekend, but was placed on hold due to hypotension and arrythmias . On Chemotherapy per ONC Keep oxygen 88-90% on 3-4L. Poor prognosis in general but slowly improving A.Fib - Placed back on Amiodarone and ca + blockers. cc time 65 min
[2016-10-21] MEDS ORDERED: Digoxin 500 mcg/2ml (0.5 mg/2ml) Inj IVP ONE ×2 (14:46→19:00)
--- NOTE | 2016-10-21 15:24 | PN ---
DATE: 10/21/2016 REASON FOR CONSULTATION AND FOLLOWUP: Shortness of breath, SVT, history of lung CA, coronary artery disease. BRIEF CLINICAL HISTORY: This is a 61-year-old female with a past medical history significant for cor onary artery disease, lung CA inoperable. Admitted with cough, shortness of breath, tachycardia. Th is morning, patient had NSVT 100, 130. Verapamil 2.5 was given. Heart rate came down to 90. Denies any chest pain now, but had earlier chest discomfort with palpitation. History of coronary artery d isease, status post PTCA of RCA 07/15/2016 with bare metal stent. History of paroxysmal atrial fibri llation, history of mitral regurgitation, history of tricuspid regurgitation, history of pulmonary hy pertension, RV systolic pressure of 123, severe pulmonary hypertension on right heart catheterization dated 07/15/2016. PHYSICAL EXAMINATION: As follows: VITAL SIGNS: Temperature afebrile, heart rate 90, blood pressure 90/65. HEENT: PERRLA. Extraocular muscles intact. NECK: Supple. No carotid bruits. No thyromegaly. CHEST: Clear to auscultation. HEART: S1, S2. Negative. BLOOD WORKUP: As follows: WBC 15.1, hemoglobin 9, hematocrit 27.2, platelet count 201. Chemistry s hows sodium 138, potassium ____, chloride 103, carbon dioxide 27, anion gap of 12, BUN 19, creatinine 1.0. IMPRESSION: Decompensated congestive heart failure, acute on chronic secondary to severe mitral regu rgitation, severe atrial fibrillation with rapid ventricular rate, inoperable lung cancer, shortness of breath, supraventricular tachycardia, very sensitive to Dobutrex, shortness of breath, inoperable lung cancer, peripheral arterial disease, status post percutaneous transluminal coronary angioplasty of right coronary artery with a bare metal stent in 07/15/2016, severe pulmonary hypertension, right heart catheterization. RECOMMENDATIONS: Continue verapamil as blood pressure is tolerated. Continue p.r.n. for heart rate more than 130. Continue gentle diuretics. Continue amiodarone. We will give extra dose of dig to s low the heart rate. We will follow with you. Overall, patient's condition critical, long-term progn osis guarded. Thank you, Dr. Singh, for providing us the opportunity in taking care of the patient. Serenity Maguire MD cc: [id number] TT: 10/21/2016 15:23:54 Confirmation # [id number] Dictation # [id number] sn
--- NOTE | 2016-10-21 16:10 | CP.PCM.PN ---
Subjective - Date & Time of Evaluation Date of Evaluation: 10/21/16 Time of Evaluation: 08:30 - Subjective Subjective: Patient is currently on a BiPAP and comfortable, no fevers this morning, breathing a little better today. Objective - Vital Signs/Intake and Output Vital Signs (last 24 hours): Temp Pulse Resp BP Pulse Ox 98.6 F 85 56 H 90/65 L 91 L 10/21/16 04:00 10/21/16 16:00 10/21/16 06:20 10/21/16 13:20 10/21/16 06:20 Intake and Output: 10/21/16 10/21/16 06:59 18:59 Intake Total 660 Output Total 500 Balance 160 - Medications Medications: Current Medications Acetaminophen (Tylenol 325mg Tab) 650 mg PO Q4H PRN PRN Reason: Headache Last Admin: 10/20/16 12:42 Dose: 650 mg Amiodarone HCl (Cordarone) 200 mg PO Q12 [facility] Last Admin: 10/21/16 09:09 Dose: 200 mg Aspirin (Ecotrin) 81 mg PO DAILY [facility] Last Admin: 10/21/16 09:10 Dose: 81 mg Atenolol (Tenormin) 12.5 mg PO BID [facility] Last Admin: 10/21/16 09:11 Dose: 12.5 mg Atorvastatin Calcium (Lipitor) 40 mg PO DIN [facility] Last Admin: 10/20/16 17:59 Dose: 40 mg Benzonatate (Tessalon Perles) 100 mg PO TID [facility] Last Admin: 10/21/16 13:18 Dose: 100 mg Clopidogrel Bisulfate (Plavix) 75 mg PO DAILY [facility] Last Admin: 10/21/16 09:11 Dose: 75 mg Digoxin (Lanoxin) 0.25 mg IVP ONCE ONE Stop: 10/21/16 19:01 Folic Acid (Folic Acid) 1 mg PO DAILY [facility] Last Admin: 10/21/16 09:10 Dose: 1 mg Gabapentin (Neurontin) 600 mg PO HS [facility] PRN Reason: Protocol Last Admin: 10/20/16 22:41 Dose: 600 mg Gabapentin (Neurontin) 300 mg PO PCB [facility] PRN Reason: Protocol Last Admin: 10/21/16 09:10 Dose: 300 mg Heparin Sodium (Porcine) (Heparin) 5,000 units SC Q8 [facility] Last Admin: 10/21/16 13:19 Dose: 5,000 units Azithromycin (Zithromax 500mg In Ns) 500 mg in 250 mls @ 250 mls/hr IVPB DAILY [facility] Last Admin: 10/21/16 09:11 Dose: 250 mls/hr Cefepime HCl (Maxipime 2gm) 2 gm in 100 mls @ 100 mls/hr IVPB Q8 [facility] PRN Reason: Protocol Stop: 10/25/16 14:16 Last Admin: 10/21/16 13:28 Dose: 100 mls/hr Vancomycin HCl (Vancomycin 1gm) 1 gm in 250 mls @ 167 mls/hr IVPB 0600,1800 [facility] PRN Reason: Protocol Last Admin: 10/21/16 07:52 Dose: 167 mls/hr Ipratropium [place] (Atrovent) 0.5 mg IH [id number] [facility] Last Admin: 10/21/16 15:39 Dose: 0.5 mg Levalbuterol HCl (Xopenex) 1.25 mg IH [id number] [facility] Last Admin: 10/21/16 15:40 Dose: 1.25 mg Levetiracetam (Keppra) 500 mg PO BID [facility] Last Admin: 10/21/16 09:09 Dose: 500 mg Methylprednisolone (Solu-Medrol) 40 mg IV Q8 [facility] Last Admin: 10/21/16 13:19 Dose: 40 mg Oxycodone/Acetaminophen (Percocet 5/325 Mg Tab) 1 tab PO Q6H PRN PRN Reason: Pain, severe (8-10) Stop: 10/22/16 18:52 Last Admin: 10/20/16 09:45 Dose: 1 tab Pantoprazole Sodium (Protonix Inj) 40 mg IVP DAILY [facility] Last Admin: 10/21/16 09:13 Dose: 40 mg Phenytoin Sodium (Dilantin) 100 mg PO PCB [facility] Last Admin: 10/21/16 09:11 Dose: 100 mg Phenytoin Sodium (Dilantin) 200 mg PO HS [facility] Last Admin: 10/20/16 22:43 Dose: 200 mg Promethazine HCl/Codeine (Phenergan/Codeine Oral Syrup) 5 ml PO Q4H PRN PRN Reason: Cough and congestion Last Admin: 10/21/16 07:27 Dose: 5 ml Roflumilast (Daliresp) 500 mcg PO DAILY [facility] Last Admin: 10/21/16 09:11 Dose: 500 mcg Sildenafil Citrate (Revatio) 20 mg PO BID [facility] Last Admin: 10/21/16 09:10 Dose: 20 mg Verapamil HCl (Calan Tab) 40 mg PO TID [facility] Last Admin: 10/21/16 13:20 Dose: 40 mg Verapamil HCl (Verapamil Inj) 2.5 mg IVP Q6H PRN PRN Reason: for heart rate >130 Last Admin: 10/21/16 08:13 Dose: 2.5 mg Zolpidem Tartrate (Ambien) 10 mg PO HS PRN PRN Reason: Insomnia Last Admin: 10/21/16 02:08 Dose: 10 mg - Labs Labs: 10/21/16 06:00 10/21/16 06:00 PT 11.2 Seconds (9.9-11.8) 10/17/16 11:00 INR 1.04 (0.93-1.08) 10/17/16 11:00 APTT 29.9 Seconds (23.7-30.8) 10/17/16 11:00 - Constitutional Appears: Non-toxic, No Acute Distress - Head Exam Head Exam: NORMAL INSPECTION - Neck Exam Neck Exam: absent: Lymphadenopathy, Meningismus - Respiratory Exam Respiratory Exam: Decreased Breath Sounds - Cardiovascular Exam Cardiovascular Exam: +S1, +S2 - GI/Abdominal Exam GI & Abdominal Exam: Soft. absent: Tenderness Assessment and Plan - Assessment and Plan (Free Text) Plan: Assessment Acute hypoxic respiratory failure. probably COPD exacerbation, now with sepsis due to right lower lobe healthcare-associated pneumonia, slowly improving stage3 IIIB non-small cell lung cancer S/P chemotherapy COPD atrial fibrillation peripheral vascular disease S/P femoral stenting benign brain tumor S/P removal in 2013 seizure disorder pulmonary HTN CAD S/P PCI chronic CHF obesity with BMI 33 Plan continue Cefepime, Zithromax and Vancomycin IV pending repeat blood and sputum cx (Day 2 today since adding the antibiotics) discussed with Dr. Singh will continue to monitor clinical response
[2016-10-21 19:02] VITALS: PULSE 82
[2016-10-22] MEDS: Promethazine/Cod 6.25mg-10mg/5ml Syr UD PO PRN ×2 (00:51→08:15)
--- NOTE | 2016-10-22 01:06 | PN ---
DATE: 10/21/2016 SUBJECTIVE: The patient remains in intensive care unit. The patient is feeling better this morning. She continues with some productive cough, but denies shortness of breath. She was seen with BiPAP machine. The patient was started on dobutamine yesterday, but very sensitive to medication, developed sinus tachycardia with heart rate of 130 per minute. She denies any chest pain or palpitation at present time, but had chest discomfort earlier this morning. PHYSICAL EXAMINATION: VITAL SIGNS: The patient is afebrile since yesterday. Her temperature this morning 97.8, blood pressure 97/59, pulse 128, regular. Her respiratory rate is 24 and oxygen saturation up to 95% on BiPAP machine. GENERAL: The patient is awake, alert and oriented. HEENT: Head is normocephalic, atraumatic. NECK: Supple, no JVD. LUNGS: With decreased breath sounds, some scattered wheezing and crackles in the left lower lung. HEART: With sinus tachycardia. ABDOMEN: Soft, nontender, nondistended. EXTREMITIES: With no edema or cyanosis. DIAGNOSTIC TESTS: Significant for CBC with leukocytosis and WBC 15,000 this morning, hemoglobin 9, hematocrit 27.2. Chemistry with normal electrolytes, normal renal function. Her random glucose remains elevated at 149. Procalcitonin increased at 0.84. Blood cultures are negative with sputum culture final still pending, but Gram stain negative. EKG this morning showed sinus tachycardia with first degree AV block and nonspecific ST-T changes. No acute ST elevation. Chest x-ray with persistent bilateral atelectasis versus bilateral infiltrations. ASSESSMENT: 1. Respiratory failure due to severe pulmonary hypertension and right dilated cardiomyopathy with superimposed pneumonia. 2. Sepsis with probably bilateral pneumonia. 3. Supraventricular tachycardia, possibly induced by dobutamine and Sepsis. 4. Exacerbation of chronic obstructive lung disease. PLAN OF TREATMENT: The patient will be reevaluated by senior mobile developer. The dobutamine was stopped and patient was treated with digoxin with improved tachycardia. We will continue present antibiotic coverage with vancomycin, Merrem and doxycycline. Continue Solu-Medrol and Xopenex. Keira Keith MD cc: [id number] TT: 10/22/2016 01:05:23 Confirmation # [id number] Dictation # [id number] simran ALVARADO
[2016-10-22] MEDS: Ipratropium 0.02% Inhal Soln (0.5 mg/2.5 ml) UD IH SCH ×6 (04:41→19:45)
[2016-10-22] MEDS: Levalbuterol 1.25 MG/3 ML Inhal Soln UD IH SCH ×6 (04:42→19:45)
[2016-10-22 06:47] LABS: HEMATOCRIT 25.2 % (36.0-48.0); MEAN CELL VOLUME 90.6 fL (80.0-105.0); MEAN CORPUSCULAR HEMOGLOBIN 28.8 pg (25.0-35.0); MEAN CORPUSCULAR HGB CONC 31.7 g/dl (31.0-37.0); MEAN PLATELET VOLUME 10.1 fl (7.0-11.0); RED CELL DISTRIBUTION WIDTH 16.9 % (11.5-14.5); WHITE BLOOD COUNT 9.8 10^3/ul (4.5-11.0)
[2016-10-22] MEDS: MethylPREDNISolone 40 mg Vial IV SCH ×3 (06:50→22:21)
[2016-10-22] MEDS: Cefepime IV 2 gm in NS 2 GM/100 ML BAG IVPB SCH ×4 (06:51→22:33)
[2016-10-22] MEDS: Vancomycin 1gm in NS 250ml 1 GM/250 ML BAG IVPB SCH (06:51)
--- NOTE | 2016-10-22 08:11 | PN ---
DATE: 10/21/2016 REFERRING PHYSICIAN: Dr. Singh. SUBJECTIVE: She is sitting up in the bed, trying to have dinner. Been on noninvasive ventilation. Still having bloody sputum, still short of breath. No nausea, no vomiting, no diarrhea, no significa nt leg swelling. OBJECTIVE: GENERAL: In no acute distress. VITAL SIGNS: Temperature is 98, heart rate 76, respiratory rate is 24, blood pressure 108/68, pulse ox is 90% on nasal canula room air. HEENT: Moist mucous membranes. Crowded airway. NECK: Supple. No JVD. LUNGS: Has crackles at the bases, scattered rhonchi. HEART: S1 and S2. ABDOMEN: Soft, nontender. No organomegaly. EXTREMITIES: There is no edema. NEUROLOGIC: Awake, alert, follows simple command. MEDICATIONS: She is on Ambien 10 mg at bedtime p.r.n., Atrovent 0.5 mg q. 4 hours p.r.n., 40 m g 3 times a day, amiodarone 200 mg twice a day, Daliresp 500 mcg daily, Dilantin 100 mg before breakf ast, Dilantin 200 mg at bedtime, Ecotrin 81 mg daily, folic acid 1 mg daily, heparin 5000 subQ q. 8 h ours, Keppra 500 mg twice a day, Lipitor 40 mg daily, cefepime 2 g IV q. 8 hours, Neurontin 600 mg q. 8 hours and 300 mg before breakfast, Percocet 5/325 one tab q. 6 hours p.r.n., Phenergan with codein e 5 mL q. 4 hours p.r.n., Plavix 75 mg daily, Protonix 40 mg daily, Revatio 20 mg q. 12 hours, Solu-M edrol 40 mg q. 8 hours, Tenormin 12.5 mg twice a day, mg 3 times a day, Tylenol on a p.r. n. basis, vancomycin 1 g IV q. 12 hours, verapamil 2.5 mg IV p.r.n., Xopenex inhaled q. 4 hours, Zith romax 500 mg daily. LABORATORY DATA: Shows hemoglobin 9.0, hematocrit 27.2 and WBC 15.1, platelet count is 201. ABG rufus ws pH 7.41, pCO2 42 to 67. This is on BiPAP today. Sodium 138, potassium 4.8, chloride 103, bicarbo stewart 27, BUN 19, creatinine 1.0, glucose 149, calcium 8.7, magnesium 2.3, AST 27, ALT 36, alkaline ph osphatase is 151, albumin is 3.2, procalcitonin is 0.84. Chest x-ray done today shows basilar atelec tasis versus infiltrate. IMPRESSION AND PLAN: Respiratory failure requiring noninvasive ventilation, severe pulmonary hyperte nsion, severe obstructive lung disease, lung cancer, status post radiation and chemotherapy, may have aspiration pneumonia and chronic obstructive pulmonary disease, history of paroxysmal atrial fibrill ation. Case discussed with family at bedside. All the questions answered. Last night, could not to lerate dobutamine, very sensitive, went into tachycardia and it was discontinued. Amiodarone increas ed to 200 twice a day. Continue bronchodilator. Keep head elevated at 45 degree. Gastric prophylax is. Deep vein thrombosis prophylaxis. Encourage noninvasive ventilation at night and during daytime p.r.n. basis, pulmonary toilet. Thank you. Will follow with you. Serenity Martinez MD cc: [id number] TT: 10/21/2016 23:42:04 Confirmation # [id number] Dictation # [id number] simran
--- NOTE | 2016-10-22 08:26 | PN ---
DATE: 10/22/2016 The patient seen and examined at bedside. She is comfortable. She talks full sentences. She is not in respiratory or otherwise distress. She is using BiPAP at night. A present time, her setting is 12/5 On that setting, her blood pressure 135/79, oxygen saturation 97%, respiratory rate 22, heart rate 83. PHYSICAL EXAMINATION: HEAD AND NECK: Atraumatic. LUNGS: Few wheezes bilaterally. HEART: Regular rate and rhythm. S1, S2 normal. ABDOMEN: Soft, nontender, nondistended. MUSCULOSKELETAL: No C/C/E. NEUROLOGIC: The patient moves all extremities spontaneously. SKIN: Moist. PSYCHIATRIC: The patient is alert and oriented x 3. ABG yesterday 7.41/42/67 on 50% FiO2. WBC 9.8, hemoglobin 8, platelet count 218. Sodium 138, potassium 4.4, chloride 103, carbon dioxide 27, BUN 19, creatinine 1 , blood glucose 149, albumin 3.2. Procalcitonin 0.84. MEDICATIONS: Tylenol p.r.n., amiodarone, aspirin, atenolol, Lipitor, azithromycin, Plavix, folic acid, Neurontin, heparin subQ, ipratropium, Xopenex , Keppra, cefepime, Solu-Medrol 40 mg IV q. 8, Percocet p.r.n., phenytoin, Daliresp, Revatio, vancomycin, verapamil, zolpidem p.r.n. ASSESSMENT AND PLAN: This is a 61-year-old lady who presented with chronic obstructive pulmonary disease exacerbation and some carbon dioxide retention which now resolved. At present time, patient is comfortable. She is not in respiratory or otherwise distress. She is hemodynamically stable. We will continue with steroid taper, antibiotics, bronchodilators. Would continue Revatio only as per discretion of primary bricklayer, as data on treatment of pulmonary hypertension related to cor pulmonale with pulmonary vasodilators are limited. Would continue to target euvolemia, euglycemia, normothermia and oxygen saturation more than 90%. Will continue with conservative fluid management. Would continue with deep venous thrombosis and gastrointestinal prophylaxis. ccm time 40 min Jorge B Litinski MD cc: [id number] TT: 10/22/2016 08:25:02 Confirmation # [id number] Dictation # [id number] en MTDD
[2016-10-22 08:38] LABS: BILIRUBIN,TOTAL 0.4 mg/dL (0.2-1.3); CALCIUM 8.9 mg/dL (8.4-10.5); POTASSIUM 4.6 mmol/L (3.6-5.0); TOTAL PROTEIN 6.1 g/dL (5.8-8.3)
[2016-10-22 09:14] LABS: MAGNESIUM 2.5 mg/dL (1.7-2.2); PHOSPHOROUS 3.5 mg/dL (2.5-4.5)
[2016-10-22] MEDS: Azithromycin 500MG/NS 250ml 500 MG/250 ML BAG IVPB SCH (10:07)
[2016-10-22] MEDS: Linezolid 600 mg in D5W 300 ml 600 MG/300 ML BAG IVPB SCH ×2 (10:08→22:23)
[2016-10-22] MEDS: Oxycodone/Acetaminophen 5/325 mg Tab PO PRN (10:17)
--- NOTE | 2016-10-22 11:51 | PN ---
DATE: 10/22/2016 The patient remains in intensive care unit. She is feeling much better. The patient denies shortness of breath. She remains on BiPAP machine with oxygen saturation of 95%-96%. PHYSICAL EXAMINATION: VITAL SIGNS: The patient is afebrile, temperature 97.5, her heart rate 88-90, regular, blood pressure 90/63 and respiratory rate 26. Presently, on BiPAP with oxygen saturation close to 98%. GENERAL: She is comfortable, in bed, alert, awake, oriented. HEENT: Head is normocephalic, atraumatic and oral mucosa is moist. NECK: Supple. LUNGS: With decreased breath sounds and a few crackles in the left lower lung. HEART: With regular rhythm, rate of 90 per minute. ABDOMEN: Soft, nontender, nondistended. EXTREMITIES: With no edema. DIAGNOSTIC TESTS: This morning, CBC improved with WBC 9.8. The patient has low hemoglobin 8 this morning with hematocrit 25.2 and platelet count 218. Her chemistry is stable with normal electrolytes. Her BUN is 31 and creatinine 1.2. Her sputum and blood cultures are negative. ASSESSMENT: 1. Sepsis with probably bilateral pneumonia, clinically improved with normal temperature. 2. History of respiratory failure with severe pulmonary hypertension and dilated cardiomyopathy, hemodynamically stable and improved heart rate. 3. Exacerbation of chronic obstructive pulmonary disease. 4. Anemia with no signs of active bleeding. 5. Nonresectable left lower lung carcinoma. PLAN OF TREATMENT: We will continue present therapy with IV antibiotics, Solu- Medrol, nebulizer treatment. Continue deep venous thrombosis prophylaxis with gastric protection with Protonix. We will continue calcium channel parrish Cardizem for heart rate control. Keira Keith MD cc: [id number] TT: 10/22/2016 11:50:48 Confirmation # [id number] Dictation # [id number] en MTDD
--- NOTE | 2016-10-22 14:41 | PN ---
DATE: 10/22/2016 REASON FOR CONSULTATION AND FOLLOWUP: Shortness of breath, exacerbation of COPD, SVT, history of jerry g CA, coronary artery disease. BRIEF CLINICAL HISTORY: A 61-year-old female with a past medical history significant for coronary ar sebastien disease; lung CA, inoperable; history of PTCA of right coronary artery 07/15/2016, severe pulmon julia hypertension, systolic pressure 123, admitted with acute exacerbation of COPD, CO2 retention, SVT . Now patient is in normal sinus, hematocrit stable. Denies any ____ pain, but complained of right lower ____ and abdomen pain, right side; increases on coughing. PHYSICAL EXAMINATION: VITAL SIGNS: Temperature afebrile, heart rate ____, blood pressure 134/79. HEENT: PERRLA. Extraocular muscles intact. NECK: Supple. No carotid bruit or thyromegaly. CHEST: Clear to auscultation. HEART: S1, S2 regular. ABDOMEN: Soft. EXTREMITIES: Clubbing and cyanosis negative. BLOOD WORKUP: As follows: WBC 9.____, hemoglobin 8, hematocrit 25.____, platelet count 218. Chemis try shows sodium 137, potassium 4.6, chloride 104, carbon dioxide 26, anion gap of 12, BUN 31, creati nine 1.2. IMPRESSION: Acute exacerbation of chronic obstructive pulmonary disease, carbon dioxide retention, i mproved; respiratory distress, improved; supraventricular tachycardia, under controlled; history of m itral regurgitation, severe; history of tricuspid regurgitation, severe; severe pulmonary hypertensio n; history of percutaneous transluminal coronary angioplasty of right coronary artery with bare metal stent; history of lung carcinoma, inoperable; history of cardiac catheterization on 07/15/2016, ____ severe pulmonary hypertension. Very sensitive to Dobutrex; went into supraventricular tachycardia w ith heart rate 130-140. Off Dobutrex. RECOMMENDATION: Continue verapamil. Give 2 doses of digoxin. Continue amiodarone. Continue aggres sive treatment for COPD; ____ pain, ischemic, right lower chest and increases when coughing. Continu e verapamil 40 mg 3 times a day. Continue ____, continue aspirin, continue DVT prophylaxis/heparin; continue digoxin to control the heart rate, given 2 doses. We will discontinue Plavix because there is a bare mental stent. Continue aspirin for life, but we will discontinue Plavix because bare metal stent. History of peripheral arterial disease, history of peripheral angioplasty of right SFA. Jesus briones follow with you. Thank you, Dr. Singh, for providing us the opportunity in taking care of the patient. Repeat the lab in the morning and supplement as needed. Serenity Maguire MD cc: [id number] TT: 10/22/2016 10:32:23 Confirmation # [id number] Dictation # [id number] mn 10/22/2016 13:40:23
--- NOTE | 2016-10-22 18:53 | CP.PCM.PN ---
Subjective - Date & Time of Evaluation Date of Evaluation: 10/22/16 Time of Evaluation: 09:40 - Subjective Subjective: Patient seen earlier in ICU, not in distress, afebrile overnight, breathing better, now off BIPAP. Still with cough but less intense. Objective - Vital Signs/Intake and Output Vital Signs (last 24 hours): Temp Pulse Resp BP Pulse Ox 98.3 F 89 20 105/70 100 10/22/16 17:36 10/22/16 18:17 10/22/16 17:36 10/22/16 18:17 10/22/16 17:36 Intake and Output: 10/22/16 10/22/16 06:59 18:59 Intake Total 1110 Output Total 400 Balance 710 - Medications Medications: Current Medications Acetaminophen (Tylenol 325mg Tab) 650 mg PO Q4H PRN PRN Reason: Headache Last Admin: 10/20/16 12:42 Dose: 650 mg Amiodarone HCl (Cordarone) 200 mg PO Q12 [facility] Last Admin: 10/22/16 10:16 Dose: 200 mg Aspirin (Ecotrin) 81 mg PO DAILY [facility] Last Admin: 10/22/16 10:17 Dose: 81 mg Atenolol (Tenormin) 12.5 mg PO BID [facility] Last Admin: 10/22/16 18:17 Dose: 12.5 mg Atorvastatin Calcium (Lipitor) 40 mg PO DIN [facility] Last Admin: 10/22/16 18:17 Dose: 40 mg Benzonatate (Tessalon Perles) 100 mg PO TID [facility] Last Admin: 10/22/16 18:17 Dose: 100 mg Folic Acid (Folic Acid) 1 mg PO DAILY [facility] Last Admin: 10/22/16 10:17 Dose: 1 mg Gabapentin (Neurontin) 600 mg PO HS [facility] PRN Reason: Protocol Last Admin: 10/21/16 23:10 Dose: 600 mg Gabapentin (Neurontin) 300 mg PO PCB [facility] PRN Reason: Protocol Last Admin: 10/22/16 08:15 Dose: 300 mg Heparin Sodium (Porcine) (Heparin) 5,000 units SC Q8 [facility] Last Admin: 10/22/16 13:22 Dose: 5,000 units Azithromycin (Zithromax 500mg In Ns) 500 mg in 250 mls @ 250 mls/hr IVPB DAILY [facility] Last Admin: 05/23/17 10:07 Dose: 250 mls/hr Cefepime HCl (Maxipime 2gm) 2 gm in 100 mls @ 100 mls/hr IVPB Q8 [facility] PRN Reason: Protocol Stop: 10/25/16 14:16 Last Admin: 10/22/16 15:20 Dose: 100 mls/hr Linezolid (Zyvox 600mg/300ml D5w) 600 mg in 300 mls @ 200 mls/hr IVPB Q12 [facility] PRN Reason: Protocol Stop: 10/29/16 10:01 Last Admin: 10/22/16 10:08 Dose: 200 mls/hr Ipratropium [place] (Atrovent) 0.5 mg IH [id number] [facility] Last Admin: 10/22/16 16:15 Dose: 0.5 mg Levalbuterol HCl (Xopenex) 1.25 mg IH [id number] [facility] Last Admin: 10/22/16 16:15 Dose: 1.25 mg Levetiracetam (Keppra) 500 mg PO BID [facility] Last Admin: 10/22/16 18:17 Dose: 500 mg Methylprednisolone (Solu-Medrol) 40 mg IV Q8 [facility] Last Admin: 10/22/16 13:22 Dose: 40 mg Oxycodone/Acetaminophen (Percocet 5/325 Mg Tab) 1 tab PO Q6H PRN PRN Reason: Pain, severe (8-10) Stop: 10/22/16 18:52 Last Admin: 10/22/16 10:17 Dose: 1 tab Pantoprazole Sodium (Protonix Inj) 40 mg IVP DAILY [facility] Last Admin: 10/22/16 10:08 Dose: 40 mg Phenytoin Sodium (Dilantin) 100 mg PO PCB [facility] Last Admin: 10/22/16 08:15 Dose: 100 mg Phenytoin Sodium (Dilantin) 200 mg PO HS [facility] Last Admin: 10/21/16 23:06 Dose: 200 mg Promethazine HCl/Codeine (Phenergan/Codeine Oral Syrup) 5 ml PO Q4H PRN PRN Reason: Cough and congestion Last Admin: 10/22/16 08:15 Dose: 5 ml Roflumilast (Daliresp) 500 mcg PO DAILY [facility] Last Admin: 10/22/16 10:17 Dose: 500 mcg Sildenafil Citrate (Revatio) 20 mg PO BID [facility] Last Admin: 10/21/16 09:10 Dose: 20 mg Verapamil HCl (Calan Tab) 40 mg PO TID [facility] Last Admin: 10/22/16 18:16 Dose: 40 mg Verapamil HCl (Verapamil Inj) 2.5 mg IVP Q6H PRN PRN Reason: for heart rate >130 Last Admin: 10/21/16 08:13 Dose: 2.5 mg Zolpidem Tartrate (Ambien) 10 mg PO HS PRN PRN Reason: Insomnia Last Admin: 10/21/16 02:08 Dose: 10 mg - Labs Labs: 10/22/16 05:45 10/22/16 05:45 PT 11.2 Seconds (9.9-11.8) 10/17/16 11:00 INR 1.04 (0.93-1.08) 10/17/16 11:00 APTT 29.9 Seconds (23.7-30.8) 10/17/16 11:00 - Constitutional Appears: Non-toxic, No Acute Distress - Head Exam Head Exam: NORMAL INSPECTION - ENT Exam ENT Exam: Mucous Membranes Moist - Neck Exam Neck Exam: absent: Lymphadenopathy, Meningismus - Respiratory Exam Respiratory Exam: Decreased Breath Sounds - Cardiovascular Exam Cardiovascular Exam: +S1, +S2 - GI/Abdominal Exam GI & Abdominal Exam: Soft. absent: Tenderness Assessment and Plan - Assessment and Plan (Free Text) Plan: Assessment Acute hypoxic respiratory failure with sepsis due to right lower lobe healthcare -associated pneumonia, slowly improving stage3 IIIB non-small cell lung cancer S/P chemotherapy COPD atrial fibrillation peripheral vascular disease S/P femoral stenting benign brain tumor S/P removal in 2013 seizure disorder pulmonary HTN CAD S/P PCI chronic CHF obesity with BMI 33 Plan continue Cefepime, Zithromax and changed Vancomycin IV to Zyvox because of some increase in Creatinine; repeat blood cx negative (Day 3 today since adding the antibiotics) discussed with Dr. Singh will continue to monitor clinical response
--- NOTE | 2016-10-22 23:34 | PN ---
DATE: 10/22/2016 REFERRING PHYSICIAN: Dr. Singh. SUBJECTIVE: The patient is sitting side of the bed. Son is at bedside, having dinner, feels a littl e better, tolerating noninvasive ventilation well, still having cough with bloody sputum, but improve d. No nausea, no vomiting, no diarrhea. No leg pain or leg swelling. OBJECTIVE: GENERAL: In no acute distress. VITAL SIGNS: Temp is 98, heart rate is , respiratory rate is 20, blood pressure 105/70, pulse o x 100% on BiPAP with 50% oxygen. HEENT: Moist mucous membranes. Crowded airway. NECK: Supple. No JVD. LUNGS: Has a few crackles at the bases, scattered rhonchi. HEART: S1 and S2. ABDOMEN: Soft, nontender. No organomegaly. EXTREMITIES: There is no edema. NEUROLOGIC: Awake, alert, follows simple command. MEDICATIONS: She is on Ambien 10 mg at bedtime p.r.n., Atrovent 0.5 mg inhaled q. 4 hours, 40 mg 3 times a day, amiodarone 200 mg q. 12 hours, Daliresp 500 mcg daily, Dilantin 100 mg in the morni ng and 200 mg at night, Ecotrin 81 mg daily, folic acid 1 mg daily, heparin 5000 units subQ q. 8 hour s, Keppra 500 mg twice a day, Lipitor 40 mg daily, cefepime 2 g IV q. 8 hours, Neurontin 600 mg at be dtime, Neurontin is at 300 mg also before breakfast. Promethazine 5 mL q. 4 hours p.r.n., Protonix 4 0 mg daily, Revatio 20 mg twice a day, Solu-Medrol 40 mg q. 8 hours, Tenormin 12.5 mg twice a day, __ ___ 400 mg 3 times a day, Tylenol p.r.n. basis, verapamil 2.5 mg IV q. 6 hours p.r.n., Xopenex inhale d q. 4 hours, Zithromax 500 mg daily, Zyvox 600 mg twice a day. LABORATORY DATA: Shows hemoglobin 8.0, hematocrit 25.2, WBC 9.8, platelet is 218. Sodium 137, potas sium 4.6, chloride 104, bicarbonate 26, BUN 31, creatinine 1.2, glucose 182, calcium 8.9, magnesium i s 2.5, AST 36, ALT 37, alkaline phosphatase is 1 7. Albumin is 3.0. IMPRESSION AND PLAN: Respiratory failure requiring noninvasive ventilation, severe pulmonary hyperte nsion, severe obstructive lung disease, lung cancer, status post radiation and chemotherapy, aspirati on pneumonia, history of paroxysmal atrial fibrillation, has hemoptysis. Clinically, she is improvin g. Continue steroids, antibiotics, p.o. and inhaled bronchodilator. Continue diuretics, beta blocke rs, gastric prophylaxis. Sequential compression device to lower extremity, out of bed to chair if po ssible. Follow up labs in the morning. Thank you and will follow with you. Serenity Martinez MD cc: [id number] TT: 10/22/2016 23:34:05 Confirmation # [id number] Dictation # [id number] mn
[2016-10-23] MEDS: Promethazine/Cod 6.25mg-10mg/5ml Syr UD PO PRN ×5 (00:03→23:17)
[2016-10-23] MEDS: Levalbuterol 1.25 MG/3 ML Inhal Soln UD IH SCH ×6 (00:10→20:45)
[2016-10-23] MEDS: Ipratropium 0.02% Inhal Soln (0.5 mg/2.5 ml) UD IH SCH ×7 (00:10→23:30)
--- NOTE | 2016-10-23 00:37 | PN ---
DATE: 10/22/2016 HISTORY OF PRESENT ILLNESS: The patient seen and examined at bedside. She is feeling more comfortab le, she is talking in full sentences and she has not had any significant respiratory distress. Using the BiPAP at night. Setting is 12/5. PHYSICAL EXAMINATION: VITAL SIGNS: On that setting, her blood pressure is 133/79, O2 sat is 97%, respirations 22, heart ra te is around 83. HEENT: Head is normocephalic, atraumatic. Conjunctivae pale. Sclerae are anicteric. Pupils are eq ually reactive to light and accommodation. Examination of the oropharynx reveals no oropharyngeal le sions. NECK: Supple. There is no adenopathy, no jugular venous distention noted. LUNGS: Revealed few wheezes bilaterally. CARDIOVASCULAR: Reveals S1 and S2 to be normal. No gallop is heard. The patient has a murmur, mitr al regurgitation, systolic ejection murmur. ABDOMEN: Soft, nontender, nondistended. Bowel sounds are present. MUSCULOSKELETAL: There is no tenderness of the lower back. Exam shows lower extremities reveal no s ignificant edema. NEUROLOGIC: Higher functions are normal. No focal deficits are noted. SKIN: Moist. LABORATORY DATA: Blood gases revealed pH of 7.41, pO2 of 42, pCO2 of 67 and 50% FIO2. WBC of 9.8, h emoglobin 8, platelet count 218,000. Sodium is 138, K is 4. , chloride 103, CO2 is 27, BUN of 19 , creatinine of 1, blood glucose is 149 with an albumin of 3.2. Procalcitonin is 0.8 . MEDICATIONS: She is on Tylenol p.r.n., amiodarone, aspirin, atenolol, Lipitor, azithromycin, Plavix has been discontinued, folic acid, Neurontin, heparin subQ, ipratropium, Xopenex, Keppra, cefepime, S brooks-Medrol 40 mg IV q. 8 hours, Percocet p.r.n., phenytoin, Daliresp, Revatio, vancomycin, verapamil and zolpidem p.r.n. ASSESSMENT NOTES AND PLAN: A 61-year-old female with acute exacerbation of chronic obstructive pulmo nary disease and some CO2 retention, which has now resolved. The patient, at this time, is comfortab le, not in any significant respiratory distress. She is hemodynamically stable. Will continue the s teroid taper. Continue antibiotics and bronchodilators with continued Revatio as per the primary pul oil process stillman recommendations. The patient has pulmonary hypertension. We will also continue to do tar get euvolemia and euglycemia along with no and keep the oxygen saturation of 190%. We will con tinue conservative fluid management as well. Continue DVT and gastric prophylaxis as well. Routine post exam instructions have been given to the patient. Time spent is greater than 40 minutes. Michelle Gomez MD cc: [id number] TT: 10/23/2016 00:36:54 Confirmation # [id number] Dictation # [id number] simran
[2016-10-23] MEDS: Cefepime IV 2 gm in NS 2 GM/100 ML BAG IVPB SCH ×3 (05:33→22:45)
[2016-10-23] MEDS: MethylPREDNISolone 40 mg Vial IV SCH ×3 (05:34→22:49)
[2016-10-23 05:59] VITALS: O2SAT 95
[2016-10-23 06:03] LABS: HEMATOCRIT 26.6 % (36.0-48.0); MEAN CELL VOLUME 91.4 fL (80.0-105.0); MEAN CORPUSCULAR HEMOGLOBIN 29.9 pg (25.0-35.0); MEAN CORPUSCULAR HGB CONC 32.7 g/dl (31.0-37.0); MEAN PLATELET VOLUME 9.8 fl (7.0-11.0); RED CELL DISTRIBUTION WIDTH 16.8 % (11.5-14.5); WHITE BLOOD COUNT 7.5 10^3/ul (4.5-11.0)
[2016-10-23 06:18] LABS: ALKALINE PHOSPHATASE 162 U/L (38-133); ALT/SGPT 39 U/L (7-56); AST/SGOT 30 U/L (15-39); BILIRUBIN,TOTAL 0.4 mg/dL (0.2-1.3); BLOOD UREA NITROGEN 31 mg/dL (7-21); CALCIUM 8.7 mg/dL (8.4-10.5); CARBON DIOXIDE 27 mmol/L (21-33); CHLORIDE 104 mmol/L (95-110); GFR AFRICAN-AMERICAN > 60; GLUCOSE,RANDOM 182 mg/dL (70-110); MAGNESIUM 2.4 mg/dL (1.7-2.2); PHOSPHOROUS 2.7 mg/dL (2.5-4.5); POTASSIUM 4.9 mmol/L (3.6-5.0); SODIUM 136 mmol/L (132-148); TOTAL PROTEIN 6.3 g/dL (5.8-8.3)
[2016-10-23] MEDS: Azithromycin 500MG/NS 250ml 500 MG/250 ML BAG IVPB SCH (09:36)
[2016-10-23] MEDS: Linezolid 600 mg in D5W 300 ml 600 MG/300 ML BAG IVPB SCH ×2 (09:42→22:50)
[2016-10-23 09:54] LABS: IRON 41 ug/dL (45-180)
--- NOTE | 2016-10-23 11:35 | PN ---
DATE: 10/23/2016 REASON FOR CONSULTATION AND FOLLOWUP: Shortness of breath, exacerbation of COPD, SVT, history of jerry g CA, coronary artery disease. BRIEF CLINICAL HISTORY: A 61-year-old female with past medical history significant for coronary lexus ry disease, lung CA inoperable, history of PTCA, right coronary artery 07/15/2016, severe pulmonary hypertension, RV systolic pressure 123, admitted with acute exacerbation of COPD, CO2 retention, SVT. Now presents in telemetry, feels better. Denies any chest pain, shortness of breath, but complaine d of right lower chest pain in the ribs and lower lumbar area. PHYSICAL EXAMINATION: VITAL SIGNS: Temperature afebrile, heart rate 9____, blood pressure 90/59. HEENT: PERRLA. Extraocular muscles intact. NECK: Supple. No carotid bruits. No thyromegaly. CHEST: Clear to auscultation. HEART: S1, S2 regular. ABDOMEN: Soft. EXTREMITIES: Clubbing and cyanosis negative. LABORATORY DATA: Blood workup as follows: WBC 7.____, hemoglobin 8.____, hematocrit 26.6, platelet count 238. Chemistry shows sodium 13____, potassium 4.9, chloride 104, carbon dioxide 2____, anion g ap of 10, BUN 13, creatinine 1.1. IMPRESSION: Acute exacerbation of chronic obstructive pulmonary disease, CO2 retention, obesity, hyp ertension, hyperlipidemia, coronary artery disease status post percutaneous transluminal coronary ang ioplasty of right coronary artery 07/15/2016 with a bare metal stent. Supraventricular tachycardia i mproved. History of supraventricular tachycardia in the past, history of paroxysmal atrial fibrillat ion, history of peripheral arterial disease status post percutaneous transluminal coronary angioplast y of right superficial femoral artery, lung carcinoma - inoperable, on chemo, chest pain, probably mu sculoskeletal secondary to invasion of the tumor lung ____ chest pain ____. RECOMMENDATION: Discontinue Plavix because the patient is already at 3 months post-stent, and it is a bare metal stent. Continue baby aspirin for the rest of her life. Continue verapamil 40 mg 3 time s a day, low ____ to control the heart rate, and continue p.r.n. verapamil. Continue antibiotic, con tinue Revatio, as blood pressures tolerate it. Continue atorvastatin. Continue subQ heparin for DVT prophylaxis. Thank you, Dr. Singh, for providing me the opportunity in taking care of the patient. Anemia, monitor electrolytes. Serenity Maguire MD cc: [id number] TT: 10/23/2016 10:51:17 Confirmation # [id number] Dictation # [id number] 10/23/2016 10:34:59
[2016-10-23] MEDS: Oxycodone/Acetaminophen 5/325 mg Tab PO PRN ×2 (13:32→18:59)
--- NOTE | 2016-10-23 17:32 | PN ---
DATE: 10/23/2016 REFERRING PHYSICIAN: Dr. Keith. SUBJECTIVE: She is sitting up in the bed, having lunch, took herself off noninvasive ventilation. O verall, breathing is better. Still has blood in sputum. No nausea, no vomiting and no diarrhea. No leg pain or leg swelling. OBJECTIVE: GENERAL: Mild distress. VITAL SIGNS: Temp is 98, heart rate is 93, respiratory rate is 20, blood pressure 151/98, pulse ox 9 5% on BiPAP. HEENT: Moist mucous membrane. Crowded airway. NECK: Supple, no JVD. LUNGS: Have crackles at the bases, scattered rhonchi. HEART: S1, S2. ABDOMEN: Soft, nontender. No organomegaly. EXTREMITIES: There is no edema. NEUROLOGIC: Awake, alert, follows simple command. MEDICATIONS: She is on Ambien 10 mg at bedtime p.r.n., Atrovent 0.5 mg inhaled q. 4 hours, Calan 40 mg 3 times a day, amiodarone 200 mg twice a day, Daliresp 500 mcg daily, Dilantin 100 mg PCB and 200 mg at bedtime, Ecotrin 81 mg daily, folic acid 1 mg daily, heparin 5000 units subQ q. 8 hours, iron s ucrose daily, Keppra 500 mg twice a day, Lipitor 40 mg daily, cefepime 2 grams IV q. 8 hours, Neuront in 600 mg at bedtime and 300 mg PCB, day, Percocet 5/325 one tab q. 6 hours p.r.n., Phenergan with co deine q. 5 mL q. 4 hours p.r.n., Protonix 40 mg daily, Revatio 20 mg twice a day, Solu-Medrol 40 mg q . 8 hours, Tylenol mg twice a day, Tessalon Perles 3 times a day, Tylenol on a p.r.n. basis, ve rapamil 2.5 mg q. 6 hours p.r.n., Xopenex 1.25 mg q. 4 hours, Zyvox 600 mg twice a day, Zithromax 500 mg daily, Xopenex inhaled q. 4 hours. LABORATORY DATA: Shows hemoglobin 8.7, hematocrit 26.6, WBC 7.5, platelet is 238. Sodium 136, potas sium 3.9, chloride 104, bicarbonate 27, BUN 31, creatinine 1.1, glucose 182, calcium is 8.7, phosphor us 2.7, magnesium 2.4. Iron 41. AST 30, ALT 39. Alk phos is 169, albumin is 3.2, procalcitonin 0.6 4. Sputum culture has normal roberta. IMPRESSION AND PLAN: Respiratory failure, on noninvasive ventilation, severe pulmonary hypertension, severe obstructive lung disease, lung cancer status post radiation and chemotherapy, aspiration pneu monia, paroxysmal atrial fibrillation, has hemoptysis. Will continue noninvasive ventilation. Keep head elevated at 45 degrees, , inhaled bronchodilator. Gastric prophylaxis. DVT prophylaxis. Pulmonary toilet, physical therapy, out of bed to chair if possible. Thank you and will follow with you. Serenity Martinez MD cc: [phone] TT: 10/23/2016 17:31:36 Confirmation # [id number] Dictation # [id number] mn
[2016-10-23 17:59] LABS: FOLATE 13.5 ng/mL
--- NOTE | 2016-10-23 18:31 | PN ---
DATE: 10/23/2016 The patient was transferred from intensive care unit to telemetry. She is feeling better. She continues with a productive cough with some clear sputum tinged with blood. The patient continues with complaints of right lateral chest pain and right lower back pain. Her appetite is better. The patient has exertional dyspnea, but her oxygen level remains stable at 95% range. PHYSICAL EXAMINATION: VITAL SIGNS: Stable. Temperature 97.6, pulse is 93 regular, blood pressure 100 /67, respiratory rate 18. The patient is breathing with BiPAP machine. Her oxygen saturation is 95%. GENERAL: She is comfortable, alert, awake, oriented. HEENT: Head is normocephalic, atraumatic. NECK: Supple. LUNGS: With bilateral crackles in bases with some scattered wheezing on expiration. HEART: With regular rhythm, rate of 90 per minute. ABDOMEN: Soft, nontender, nondistended. EXTREMITIES: With no edema. LABORATORY DATA: CBC: Improved hemoglobin 8.7 today, WBC 7.5. Her chemistry with normal electrolytes and stable renal function with BUN 31, creatinine 1.1. Glucose is stable. Her ____ procalcitonin is going down, it is 0.64 this morning. ASSESSMENT: 1. History of sepsis due to bilateral pneumonia, clinically improving. 2. Exacerbation of chronic obstructive pulmonary disease. 3. Severe pulmonary hypertension with right dilated cardiomyopathy and history of supraventricular tachycardia, presently hemodynamically stable. 4. Anemia of chronic disease with hemoglobin normalized. 5. Right thoracic back pain due to thoracic muscle strain. PLAN OF TREATMENT: The patient will be maintained on present antibiotic therapy switched to linezolid and continue with cefepime and azithromycin. The patient will be maintained on Solu-Medrol, will decrease dose to twice a day. Continue oxygen, Xopenex. Start pain medication for her right thoracic pain. The patient will be evaluated for physical therapy and transitional care unit. Keira Keith MD cc: [id number] TT: 10/23/2016 18:31:04 Confirmation # [id number] Dictation # [id number] dio ALVARADO
--- NOTE | 2016-10-23 19:39 | CP.PCM.PN ---
Subjective - Date & Time of Evaluation Date of Evaluation: 10/23/16 Time of Evaluation: 10:45 - Subjective Subjective: Comfortable, breathing better, still with cough but a little less, no fevers overnight. Objective - Vital Signs/Intake and Output Vital Signs (last 24 hours): Temp Pulse Resp BP Pulse Ox 97.9 F 78 18 117/83 95 10/23/16 19:05 10/23/16 19:05 10/23/16 19:10/23/16 19:10/23/16 06:13 - Medications Medications: Current Medications Acetaminophen (Tylenol 325mg Tab) 650 mg PO Q4H PRN PRN Reason: Headache Last Admin: 10/20/16 12:42 Dose: 650 mg Amiodarone HCl (Cordarone) 200 mg PO Q12 [facility] Last Admin: 10/23/16 09:34 Dose: 200 mg Aspirin (Ecotrin) 81 mg PO DAILY [facility] Last Admin: 10/23/16 09:33 Dose: 81 mg Atenolol (Tenormin) 12.5 mg PO BID [facility] Last Admin: 10/23/16 18:37 Dose: 12.5 mg Atorvastatin Calcium (Lipitor) 40 mg PO DIN [facility] Last Admin: 10/23/16 18:34 Dose: 40 mg Benzonatate (Tessalon Perles) 100 mg PO TID [facility] Last Admin: 10/23/16 18:34 Dose: 100 mg Folic Acid (Folic Acid) 1 mg PO DAILY [facility] Last Admin: 10/23/16 09:34 Dose: 1 mg Gabapentin (Neurontin) 600 mg PO HS [facility] PRN Reason: Protocol Last Admin: 10/22/16 22:21 Dose: 600 mg Gabapentin (Neurontin) 300 mg PO PCB [facility] PRN Reason: Protocol Last Admin: 10/23/16 09:33 Dose: 300 mg Heparin Sodium (Porcine) (Heparin) 5,000 units SC Q8 [facility] Last Admin: 10/23/16 14:02 Dose: 5,000 units Azithromycin (Zithromax 500mg In Ns) 500 mg in 250 mls @ 250 mls/hr IVPB DAILY [facility] Last Admin: 10/23/16 09:36 Dose: 250 mls/hr Cefepime HCl (Maxipime 2gm) 2 gm in 100 mls @ 100 mls/hr IVPB Q8 [facility] PRN Reason: Protocol Stop: 10/25/16 14:16 Last Admin: 10/23/16 13:32 Dose: 100 mls/hr Linezolid (Zyvox 600mg/300ml D5w) 600 mg in 300 mls @ 200 mls/hr IVPB Q12 [facility] PRN Reason: Protocol Stop: 10/29/16 10:01 Last Admin: 10/23/16 09:42 Dose: 200 mls/hr Iron Sucrose 100 mg/ Sodium (Chloride) 105 mls @ 210 mls/hr IVPB DAILY [facility] Stop: 10/26/16 10:29 Ipratropium [place] (Atrovent) 0.5 mg IH [id number] [facility] Last Admin: 10/23/16 16:42 Dose: 0.5 mg Levalbuterol HCl (Xopenex) 1.25 mg IH [id number] [facility] Last Admin: 10/23/16 16:42 Dose: 1.25 mg Levetiracetam (Keppra) 500 mg PO BID [facility] Last Admin: 10/23/16 18:37 Dose: 500 mg Methylprednisolone (Solu-Medrol) 40 mg IV Q12 [facility] Oxycodone/Acetaminophen (Percocet 5/325 Mg Tab) 1 tab PO Q6H PRN PRN Reason: Pain, moderate (4-7) Stop: 10/26/16 13:27 Last Admin: 10/23/16 18:59 Dose: 1 tab Pantoprazole Sodium (Protonix Inj) 40 mg IVP DAILY [facility] Last Admin: 10/23/16 09:32 Dose: 40 mg Phenytoin Sodium (Dilantin) 100 mg PO PCB [facility] Last Admin: 10/23/16 09:33 Dose: 100 mg Phenytoin Sodium (Dilantin) 200 mg PO HS [facility] Last Admin: 10/22/16 22:23 Dose: 200 mg Promethazine HCl/Codeine (Phenergan/Codeine Oral Syrup) 5 ml PO Q4H PRN PRN Reason: Cough and congestion Last Admin: 10/23/16 19:02 Dose: 5 ml Roflumilast (Daliresp) 500 mcg PO DAILY [facility] Last Admin: 10/23/16 09:34 Dose: 500 mcg Sildenafil Citrate (Revatio) 20 mg PO BID [facility] Last Admin: 10/21/16 09:10 Dose: 20 mg Verapamil HCl (Calan Tab) 40 mg PO TID [facility] Last Admin: 10/23/16 18:33 Dose: 40 mg Verapamil HCl (Verapamil Inj) 2.5 mg IVP Q6H PRN PRN Reason: for heart rate >130 Last Admin: 10/21/16 08:13 Dose: 2.5 mg Zolpidem Tartrate (Ambien) 10 mg PO HS PRN PRN Reason: Insomnia Last Admin: 10/22/16 22:22 Dose: 10 mg - Labs Labs: 10/23/16 05:55 10/23/16 05:55 PT 11.2 Seconds (9.9-11.8) 10/17/16 11:00 INR 1.04 (0.93-1.08) 10/17/16 11:00 APTT 29.9 Seconds (23.7-30.8) 10/17/16 11:00 - Constitutional Appears: Non-toxic, No Acute Distress - Head Exam Head Exam: NORMAL INSPECTION - ENT Exam ENT Exam: Mucous Membranes Moist - Neck Exam Neck Exam: absent: Lymphadenopathy, Meningismus - Respiratory Exam Respiratory Exam: Decreased Breath Sounds - Cardiovascular Exam Cardiovascular Exam: +S1, +S2 - GI/Abdominal Exam GI & Abdominal Exam: Soft. absent: Tenderness Assessment and Plan - Assessment and Plan (Free Text) Plan: Assessment Acute hypoxic respiratory failure with sepsis due to right lower lobe healthcare -associated pneumonia, clinically improving stage3 IIIB non-small cell lung cancer S/P chemotherapy COPD atrial fibrillation peripheral vascular disease S/P femoral stenting benign brain tumor S/P removal in 2013 seizure disorder pulmonary HTN CAD S/P PCI chronic CHF obesity with BMI 33 Plan continue Cefepime, Zithromax and Zyvox day 3; repeat blood cx negative discussed with Dr. Singh previously will continue to monitor clinical response
--- NOTE | 2016-10-23 22:17 | PN ---
DATE: 10/23/2016 This is the patient's hospital visit on the telemetry floor. For Dr. Gomez. SUBJECTIVE: The patient is a 61-year-old female, seen lying awake in bed with oxygen on, reporting t hat she feels modestly improved with the patient noted to have significant low hemoglobin on testing recently done. With this, she is here for exacerbation of COPD known to suffer from stage IIIB nonsm all cell CA of the lung, status post recent chemotherapy with hypotension noted with her blood pressu re medicines being held. Also, history of supraventricular tachycardia with AFib. Otherwise, restin g comfortably. PHYSICAL EXAMINATION: VITAL SIGNS: Temperature 97.9, pulse 78, respirations 18, blood pressure 117/83, pulse ox of 95% on BiPAP. HEENT: Unremarkable. Oxygen is on. NECK: Supple. HEART: Regular rate, occasional ectopic beat. LUNGS: Rales at the bases, occasional rhonchi. ABDOMEN: Obese, soft, and nontender. EXTREMITIES: No edema. SKIN: Warm, dry and clear. NEUROLOGIC: Awake and alert. LABORATORY DATA: The patient's labs were done. White blood cell count 7.5, hemoglobin 8.7, hematocr it 26.6, platelet count of 238,000 with a chem metabolic panel showing a BUN of 31, creatinine 1.1. Iron saturation of 17%. Procalcitonin 0.6. ASSESSMENT: For this patient is that of hypoxemic respiratory failure with sepsis, right lower lobe pneumonia, stage IIIB nonsmall cell cancer of the lung, chronic obstructive pulmonary disease, atrial fibrillation, peripheral vascular disease, seizure disorder, pulmonary hypertension, anemia of chron ic disease. PLAN: After conversation with Dr. Gomez, we will type and cross for 2 units of packed red blood ce lls on hold. We will discontinue her IV iron in the interim with transfusion as indicated as per Dr. Gomez's recommendations with repeat labs in the morning. We will monitor clinically and with labs . Aaron Valadez MD cc: [id number] TT: 10/23/2016 22:17:11 Confirmation # [id number] Dictation # [id number] mn
[2016-10-24] MEDS: Levalbuterol 1.25 MG/3 ML Inhal Soln UD IH SCH ×4 (04:23→15:14)
[2016-10-24] MEDS: Ipratropium 0.02% Inhal Soln (0.5 mg/2.5 ml) UD IH SCH ×4 (04:23→15:14)
[2016-10-24] MEDS: Cefepime IV 2 gm in NS 2 GM/100 ML BAG IVPB SCH ×2 (05:57→14:54)
[2016-10-24] MEDS: Oxycodone/Acetaminophen 5/325 mg Tab PO PRN ×2 (06:12→15:02)
[2016-10-24 06:33] LABS: ADD MANUAL DIFF? NO
[2016-10-24 06:43] VITALS: RESP 20
[2016-10-24 06:54] LABS: BASO # 0.04 K/mm3 (0.0-2.0); BASO % 0.5 % (0.0-3.0); GRAN # 5.81 (1.4-6.5); GRAN % 77.4 % (50.0-68.0); HEMATOCRIT 27.9 % (36.0-48.0); LYMPH # 0.7 (1.2-3.4); LYMPH % 9.5 % (22.0-35.0); MEAN CELL VOLUME 90.6 fL (80.0-105.0); MEAN CORPUSCULAR HEMOGLOBIN 28.9 pg (25.0-35.0); MEAN CORPUSCULAR HGB CONC 31.9 g/dl (31.0-37.0); MONO % 12.6 % (1.0-6.0); PLATELET COUNT 283 10^3/uL (120.0-450.0); RED CELL DISTRIBUTION WIDTH 16.8 % (11.5-14.5); WHITE BLOOD COUNT 7.5 10^3/ul (4.5-11.0)
[2016-10-24 07:03] LABS: ALB/GLOB RATIO 1.1 (1.1-1.8); BILIRUBIN,TOTAL 0.4 mg/dL (0.2-1.3); CALCIUM 9.1 mg/dL (8.4-10.5); MAGNESIUM 2.2 mg/dL (1.7-2.2); PHOSPHOROUS 2.7 mg/dL (2.5-4.5); POTASSIUM 5.4 mmol/L (3.6-5.0); TOTAL PROTEIN 6.2 g/dL (5.8-8.3)
[2016-10-24] MEDS: MethylPREDNISolone 40 mg Vial IV SCH (11:30)
--- NOTE | 2016-10-24 14:46 | RAD ---
HISTORY: sepsis, pneumonia, left lower lung ca COMPARISON: 10/21/2016 single-view chest. 09/22/2016. CT thorax. TECHNIQUE: Chest PA and lateral FINDINGS: LUNGS: Left lower lobe infiltrate/ mass. Atelectasis/ infiltrate right lower lobe. PLEURA: No significant pleural effusion identified. No pneumothorax apparent. CARDIOVASCULAR: No radiographic findings to suggest acute or significant cardiovascular disease.Venous access catheter in stable, satisfactory position. OSSEOUS STRUCTURES: No significant abnormalities. VISUALIZED UPPER ABDOMEN: Normal. OTHER FINDINGS: None. IMPRESSION: Lower lobe infiltrates/masses progressive compared to the prior study.
--- NOTE | 2016-10-24 14:52 | PN ---
DATE: 10/24/2016 SUBJECTIVE: The patient is feeling better this morning. She continues with productive cough and some right-sided chest pain with cough. She denies severe dyspnea, but developed exertional dyspnea during physical therapy yesterday. Her appetite improved. PHYSICAL EXAMINATION: VITAL SIGNS: Stable. Temperature is 97.2, pulse 72 and regular, blood pressure 112/79, and respiratory rate 20. The patient uses BiPAP at night. Her oxygen saturation stays in the range of 95-98%. GENERAL: She is comfortable in bed, alert, awake, oriented. HEENT: Head is normocephalic, atraumatic. NECK: Supple, no JVD. LUNGS: With decreased breath sounds and some crackles bilaterally. No rales or wheezing. HEART: Regular rhythm and rate. ABDOMEN: Soft, nontender, nondistended. EXTREMITIES: With no edema. LABORATORY DATA: Today, CBC with stable WBC 7.5, hemoglobin 8.9 (increased slightly since yesterday). Her platelet count is 283. Chemistry: Stable electrolytes and stable renal function with BUN 28 and creatinine 1.2. Her blood cultures and sputum cultures are all negative. ASSESSMENT: 1. History of sepsis with bilateral pneumonia, clinically improved. 2. Exacerbation of chronic obstructive pulmonary disease with persistent productive cough. 3. Anemia of chronic disease with improvement of hemoglobin since yesterday. 4. Severe pulmonary hypertension with dilated cardiomyopathy, history of supraventricular tachycardia. 5. General deconditioning. PLAN OF TREATMENT: Will be maintained again on the same antibiotic coverage, weaning off Solu-Medrol dose. Continue nebulizer treatment. We will continue Cardizem and amiodarone. The patient was evaluated for TCU. There are no plans for blood transfusion at present time as per health club manager. The patient will be cleared for TCU transfer if bed available. Keira Keith MD cc: [id number] TT: 10/24/2016 14:52:08 Confirmation # [id number] Dictation # [id number] simran ALVARADO
[2016-10-24] MEDS: Azithromycin 500MG/NS 250ml 500 MG/250 ML BAG IVPB SCH (14:56)
[2016-10-24] MEDS: Linezolid 600 mg in D5W 300 ml 600 MG/300 ML BAG IVPB SCH (14:57)
[2016-10-24 17:37] VITALS: BP 106/76; PULSE 86
--- NOTE | 2016-10-24 19:52 | PN ---
DATE: 10/24/2016 REFERRING PHYSICIAN: Dr. Singh. SUBJECTIVE: She is sitting up in a chair noninvasive ventilation. Overall, feels better, majo briones has some cough, blood-tinged sputum production. short of breath. No nausea, vomiting, diarrhea. No leg pain or leg swelling. OBJECTIVE: GENERAL: No acute distress. VITAL SIGNS: Temperature is 98, heart is 80, respiratory rate is 20, blood pressure 106/76, pulse ox 95% on BiPAP. HEENT: Moist mucous membrane. Crowded airway. NECK: Supple, no JVD. LUNGS: Crackles at the bases, scattered rhonchi. HEART: S1, S2. ABDOMEN: Soft, nontender. No organomegaly. EXTREMITIES: There is no edema. NEUROLOGIC: Awake, alert, follows simple command. MEDICATIONS: She is on Ambien 10 mg at bedtime p.r.n., Atrovent inhaler q. 4 hours, Calan 40 mg 3 ti mes a day, amiodarone 200 mg daily, Daliresp 500 mcg daily, Dilantin mg PCB and 200 mg DANICA, Eco satr 81 mg daily, folic acid 1 mg daily, heparin 5000 units subQ q. 8 hours, Keppra 500 mg twice a da y, Lipitor 40 mg daily, cefepime 2 g IV q. 8 hours, Neurontin 600 mg at bedtime, Neurontin 300 mg PCB , Percocet 5/325 one tab q. 6 hours p.r.n., promethazine with codeine q. 4 hours p.r.n., Protonix 40 mg daily, Revatio 20 mg twice a day, Solu-Medrol 40 mg twice a day, Tenormin 12.5 mg twice a day, Rekha salon Perles 100 mg 3 times a day, Tylenol on a p.r.n. basis, verapamil on a p.r.n. basis, IV Xopenex q. 4 hours, Zithromax 500 mg daily, Zyvox 600 mg twice a day. LABORATORY DATA: Shows hemoglobin 8.9, hematocrit 27.9, WBC 7.5, platelet is 203. Sodium 137, potas sium 5.4, chloride 105, bicarbonate 26, BUN 28, creatinine 1.2, glucose 140, calcium 9.1, phosphorus 2.7, magnesium 2.2, AST 47, ALT 56, alkaline phosphatase is 175, albumin is 3.2, procalcitonin 0.64. Chest x-ray done today shows lower lobe infiltrate/mass, progressive compared to prior study. IMPRESSION AND PLAN: Respiratory failure requiring noninvasive ventilation, severe pulmonary hyperte nsion, severe obstructive lung disease, lung cancer radiation and chemotherapy, aspiration pneu monia, paroxysmal atrial fibrillation, still has blood-tinged sputum. We will continue to encourage BiPAP use. Keep head elevated at 45 degree, IV and inhaled bronchodilator, antibiotics. Gastric pro phylaxis. Sequential compression device to lower extremities, physical therapy. Thank you and we jonathon l follow with you. Serenity Martinez MD cc: [id number] TT: 10/24/2016 19:51:36 Confirmation # [id number] Dictation # [id number] ln
--- NOTE | 2016-10-24 20:45 | PN ---
DATE: 10/24/2016 REASON FOR CONSULTATION AND FOLLOWUP: Shortness of breath, exacerbation of chronic obstructive pulmo nary disease, supraventricular tachycardia, history of lung carcinoma, coronary artery disease. BRIEF CLINICAL HISTORY: This is a 61-year-old female with a past medical history significant for cor onary artery disease, lung CA inoperable, history of PTCA right coronary artery, PTCA 07/15/2016; sev ere pulmonary hypertension, exacerbation of COPD, CO2 retention, SVT outpatient telemetry, rela tively stable hemodynamically. Denies any chest pain, shortness of breath or any palpitation. PHYSICAL EXAMINATION: VITAL SIGNS: Temperature afebrile, heart rate 80, blood pressure 106/ . HEENT: PERRLA. Extraocular muscles intact. NECK: Supple. No carotid bruits. No thyromegaly. CHEST: Clear to auscultation. HEART: S1, S2 regular. ABDOMEN: Soft. EXTREMITIES: Clubbing and cyanosis negative. LABORATORY DATA: Blood workup: WBC 7.5, hemoglobin 8.9, hematocrit 27.9, platelet count 283. Chemi stry shows sodium 137, potassium 5.4, chloride 105, carbon dioxide 26, anion gap of 11, BUN 28, creat inine 1.2. IMPRESSION: Decompensated congestive heart failure secondary to severe mitral regurgitation, tricusp id regurgitation, right heart failure, pulmonary hypertension, supraventricular tachycardia, did not tolerate Dobutrex and went into supraventricular tachycardia; chronic obstructive pulmonary disease, advanced; CO2 retention, upper lung carcinoma, chest pain secondary to , nonischemic; peripheral arterial disease, history of percutaneous transluminal coronary angioplasty of right superficial fem oral artery. RECOMMENDATION: Continue verapamil, continue amiodarone, change to 200 mg daily now to prevent pulmo nary toxicity , continue baby aspirin, continue heparin. I discontinued Plavix yesterday hilary perez the patient has a bare metal stent for more than 3 months. Will also continue sildenafil for pulmon julia hypertension and continue atenolol for SVT. Will follow with you. Thank you, Dr. Keith, for providing me the opportunity in taking care of the patient. Serenity Maguire MD cc: [facility] TT: 10/24/2016 20:44:37 Confirmation # [id number] Dictation # [id number] dn
[2016-10-24 21:08] VITALS: TEMP 98.6
--- NOTE | 2016-10-24 22:15 | CP.PCM.PN ---
Subjective - Date & Time of Evaluation Date of Evaluation: 10/24/16 Time of Evaluation: 09:15 - Subjective Subjective: Breathing better on the BiPAP, still with cough, no fevers overnight. Objective - Vital Signs/Intake and Output Vital Signs (last 24 hours): Temp Pulse Resp BP Pulse Ox 98.6 F 86 20 106/76 95 10/24/16 18:00 10/24/16 18:00 10/24/16 18:00 10/24/16 18:00 10/23/16 06:13 - Labs Labs: 10/24/16 05:30 10/24/16 05:30 PT 11.2 Seconds (9.9-11.8) 10/17/16 11:00 INR 1.04 (0.93-1.08) 10/17/16 11:00 APTT 29.9 Seconds (23.7-30.8) 10/17/16 11:00 - Constitutional Appears: Non-toxic, No Acute Distress - Head Exam Head Exam: NORMAL INSPECTION - ENT Exam ENT Exam: Mucous Membranes Moist - Neck Exam Neck Exam: absent: Lymphadenopathy, Meningismus - Respiratory Exam Respiratory Exam: Decreased Breath Sounds - Cardiovascular Exam Cardiovascular Exam: +S1, +S2 - GI/Abdominal Exam GI & Abdominal Exam: Soft. absent: Tenderness Assessment and Plan - Assessment and Plan (Free Text) Plan: Assessment Acute hypoxic respiratory failure with sepsis due to right lower lobe healthcare -associated pneumonia, clinically improving stage3 IIIB non-small cell lung cancer S/P chemotherapy COPD atrial fibrillation peripheral vascular disease S/P femoral stenting benign brain tumor S/P removal in 2013 seizure disorder pulmonary HTN CAD S/P PCI chronic CHF obesity with BMI 33 Plan continue Cefepime, Zithromax and Zyvox day 4; repeat blood cx negative discussed with Dr. Singh previously will continue to monitor clinical response
== END 2016-10-24 19:00 | DRG 871 ==
LOC: ED 10:27 → ERH 15:04 → CCU 15:29 → 2RNO 10-22 13:03
PROVIDERS: ADMIT Family Medicine; ATTEND Family Medicine
DX: A41.9 Sepsis, unspecified organism (principal); J69.0 Pneumonitis due to inhalation of food and vomit; J96.01 Acute respiratory failure with hypoxia; I47.2 Ventricular tachycardia; I50.43 Acute on chronic combined systolic (congestive) and diastolic (congestive) heart failure; E87.2 Acidosis; C34.92 Malignant neoplasm of unspecified part of left bronchus or lung; D63.8 Anemia in other chronic diseases classified elsewhere; J44.1 Chronic obstructive pulmonary disease with (acute) exacerbation; I42.0 Dilated cardiomyopathy; I47.1 Supraventricular tachycardia; R04.2 Hemoptysis; I11.0 Hypertensive heart disease with heart failure; I50.9 Heart failure, unspecified; G40.909 Epilepsy, unspecified, not intractable, without status epilepticus; I48.0 Paroxysmal atrial fibrillation; I08.1 Rheumatic disorders of both mitral and tricuspid valves; D33.2 Benign neoplasm of brain, unspecified; E78.5 Hyperlipidemia, unspecified; E66.9 Obesity, unspecified; Y95 Nosocomial condition; G47.33 Obstructive sleep apnea (adult) (pediatric); H91.92 Unspecified hearing loss, left ear; I25.10 Atherosclerotic heart disease of native coronary artery without angina pectoris; I27.2 Other secondary pulmonary hypertension; I27.81 Cor pulmonale (chronic); I48.2 Chronic atrial fibrillation; I73.9 Peripheral vascular disease, unspecified; K21.9 Gastro-esophageal reflux disease without esophagitis; Z68.33 Body mass index [BMI] 33.0-33.9, adult; Z85.42 Personal history of malignant neoplasm of other parts of uterus; Z86.010 Personal history of colon polyps; Z86.011 Personal history of benign neoplasm of the brain; Z87.891 Personal history of nicotine dependence; Z90.49 Acquired absence of other specified parts of digestive tract; Z90.710 Acquired absence of both cervix and uterus; Z92.21 Personal history of antineoplastic chemotherapy; Z92.3 Personal history of irradiation; Z95.5 Presence of coronary angioplasty implant and graft; Z99.81 Dependence on supplemental oxygen; Z87.19 Personal history of other diseases of the digestive system; Z91.09 Other allergy status, other than to drugs and biological substances; S29.012A Strain of muscle and tendon of back wall of thorax, initial encounter; R53.81 Other malaise

== ENCOUNTER 2016-10-24 19:00 | Inpatient (IN) | payer OTHER, MEDICAID ==
[2016-10-24] MEDS: Ipratropium 0.02% Inhal Soln (0.5 mg/2.5 ml) UD IH SCH (20:57)
[2016-10-24] MEDS: Levalbuterol 1.25 MG/3 ML Inhal Soln UD IH SCH (20:57)
[2016-10-24] MEDS ORDERED: Phenytoin 125 mg/5 ml Oral Susp (237 ml) PO SCH (22:00)
[2016-10-24 22:25] VITALS: BMI 35.9
[2016-10-24] MEDS ORDERED: Pneumococcal 23-Valent Vaccine IM ONE (22:26)
[2016-10-24] MEDS: Cefepime IV 2 gm in NS 2 GM/100 ML BAG IVPB SCH (22:28)
[2016-10-24] MEDS: Phenytoin 100 mg/4 ml Oral Susp UD PO SCH (22:29)
[2016-10-24] MEDS: Promethazine/Cod 6.25mg-10mg/5ml Syr UD PO PRN (22:35)
[2016-10-25] MEDS: Levalbuterol 1.25 MG/3 ML Inhal Soln UD IH SCH ×7 (00:17→23:44)
[2016-10-25] MEDS: Ipratropium 0.02% Inhal Soln (0.5 mg/2.5 ml) UD IH SCH ×7 (00:17→23:44)
[2016-10-25] MEDS: Cefepime IV 2 gm in NS 2 GM/100 ML BAG IVPB SCH ×5 (05:10→22:19)
[2016-10-25] MEDS: Azithromycin 500MG/NS 250ml 500 MG/250 ML BAG IVPB SCH (05:10)
[2016-10-25] MEDS: MethylPREDNISolone 40 mg Vial IVP SCH ×2 (05:12→18:16)
[2016-10-25] MEDS: Oxycodone/Acetaminophen 5/325 mg Tab PO PRN (05:16)
[2016-10-25] MEDS: Promethazine/Cod 6.25mg-10mg/5ml Syr UD PO PRN (05:17)
[2016-10-25] MEDS: Pantoprazole 40 mg EC Tab PO SCH (06:42)
[2016-10-25 06:45] LABS: ADD MANUAL DIFF? NO
[2016-10-25 06:55] LABS: BASO # 0.06 K/mm3 (0.0-2.0); BASO % 0.6 % (0.0-3.0); EOS % 0.2 % (1.5-5.0); GRAN # 8.66 (1.4-6.5); GRAN % 82.6 % (50.0-68.0); HEMATOCRIT 28.3 % (36.0-48.0); LYMPH # 0.8 (1.2-3.4); MEAN CELL VOLUME 91.3 fL (80.0-105.0); MEAN CORPUSCULAR HEMOGLOBIN 29.4 pg (25.0-35.0); MEAN CORPUSCULAR HGB CONC 32.2 g/dl (31.0-37.0); MEAN PLATELET VOLUME 9.7 fl (7.0-11.0); MONO # 0.9 (0.1-0.6); MONO % 8.6 % (1.0-6.0); PLATELET COUNT 305 10^3/uL (120.0-450.0); RED CELL DISTRIBUTION WIDTH 16.8 % (11.5-14.5); WHITE BLOOD COUNT 10.5 10^3/ul (4.5-11.0)
[2016-10-25 06:58] LABS: ALKALINE PHOSPHATASE 166 U/L (38-133); ALT/SGPT 50 U/L (7-56); AST/SGOT 35 U/L (15-39); BILIRUBIN,TOTAL 0.4 mg/dL (0.2-1.3); BLOOD UREA NITROGEN 28 mg/dL (7-21); CALCIUM 8.9 mg/dL (8.4-10.5); CARBON DIOXIDE 30 mmol/L (21-33); CHLORIDE 105 mmol/L (98-107); GFR AFRICAN-AMERICAN > 60; GLUCOSE,RANDOM 96 mg/dL (70-110); POTASSIUM 4.7 mmol/L (3.6-5.0); SODIUM 139 mmol/L (132-148)
--- NOTE | 2016-10-25 08:02 | CON ---
DATE: 10/24/2016 This is the patient's hospital consult on the TCU floor. For Dr. Gomez. CHIEF COMPLAINT: Deconditioning. HISTORY OF PRESENT ILLNESS: The patient is a 61-year-old female admitted via the Emergency Room and now transferred to TCU after improvement of her pneumonia with respiratory compromise, now transferre d from the telemetry floor as per Dr. Singh with BiPAP continuing. The patient also has a stage I IIB nonsmall cell CA of the lung with treatment as per Dr. Gomez. She is now resting comfortably, reports she feels better on TCU. She also has significant anemic indices with consideration for worley sfusion as per Dr. Gomez's recommendations. We will monitor clinically and with labs. ALLERGIES: SYED, no medicines. MEDICATIONS: Include Brovana, Cardizem, amiodarone, Dilantin, Ecotrin, Keppra, Lasix, Lipitor, metop rolol, Pepcid, Plavix, Revatio, Robitussin, codeine, Tylenol. PAST MEDICAL HISTORY: Significant for stage IIIB nonsmall cell CA with mediastinal involvement, atri al fibrillation, chronic, history of SVT, PVD, seizure disorder, benign brain tumor removed in 2013, femoral stents for peripheral vascular disease, pulmonary hypertension, COPD, congestive cardiomyopat hy, nonsmall cell CA of the lung, unresectable, status post chemoradiation, on maintenance chemothera py, seizure disorder, status post bare metal stenting for significant coronary artery stenosis with t he patient on continuous oxygen. FAMILY HISTORY AND SOCIAL HISTORY: Positive smoker 1 pack a day for 40 years, quit a year ago. Quoc es alcohol or drug use. Lives with her daughter. Otherwise, noncontributory. REVIEW OF SYSTEMS: Essentially negative to questioning except as above. OBJECTIVE AND PHYSICAL EXAMINATION: VITAL SIGNS: Temperature 98.6, pulse 86, respirations 20, blood pressure 106/76 with a pulse ox to b e done as she just arrived on the floor. HEENT: Oxygen is on, supplemental. NECK: Supple. HEART: Regular rate, occasional ectopic beat. LUNGS: Minimal decreased breath sounds, occasional rhonchi. ABDOMEN: Obese, soft, nontender. EXTREMITIES: +1 edema in bilateral lower extremities. NEUROLOGIC: Awake and alert. SKIN: Otherwise, warm, dry and clear. LABORATORIES: Done earlier today, white blood cell count of 7.5, hemoglobin 8.9, hematocrit of 27.9, platelet count of 283,000 with a chem metabolic panel showing a potassium of 5.4, AST 47 with an oth erwise normal chem metabolic panel. Procalcitonin was 0.6, done yesterday. The patient did have a chest x-ray done earlier today. It was read as lower lobe infiltrate, mass, p rogressive compared to the prior study. However, Dr. Martinez recommends continue the BiPAP use with b ronchodilators and antibiotics with the patient now transferred to TCU as she feels better. PLAN: After conversation with Dr. Gomez, is to continue the present medical regimen with the patie nt to have her labs done in the morning with consideration for transfusion of 2 units of packed red b lood cells as indicated. The prognosis for this patient is guarded. Aaron Valadez MD cc: [phone] TT: 10/25/2016 08:02:17 Confirmation # [id number] Dictation # [id number] en
[2016-10-25] MEDS: Phenytoin 100 mg/4 ml Oral Susp UD PO SCH ×2 (08:43→22:21)
[2016-10-25] MEDS: Sildenafil 20 MG TAB PO SCH ×2 (09:28→18:14)
--- NOTE | 2016-10-25 14:48 | PN ---
DATE: 10/25/2016 This is the patient's hospital visit on TCU. For Dr. Gomez. SUBJECTIVE: The patient is a 61-year-old female, seen sitting up in bed, admitted for pneumonia, res piratory compromise, now transferred to TCU for reconditioning with the patient known to have severe cardiac issues with congestive cardiomyopathy and stage IIIB nonsmall cell CA of the lung with medias tinal involvement. With her cardiac condition and poor pulmonary status, her anemic indices are more pronounced with Dr. Gomez requesting a transfusion of 1 unit of packed red blood cells for harley saezg her present status. She is otherwise reporting that her shortness of breath has improved with n o pain at present. PHYSICAL EXAMINATION: VITAL SIGNS: Temperature 98.2, pulse 84, respirations 18, blood pressure 97/62, pulse ox 97%. HEENT: Oxygen is on. NECK: Supple. HEART: Regular rate. LUNGS: Decreased breath sounds. Occasional rhonchi. ABDOMEN: Obese, soft, and nontender. EXTREMITIES: Faint +1 edema. NEUROLOGIC: Awake and alert. SKIN: Otherwise, warm, dry and clear. LABORATORY DATA: The patient's labs were done. White blood cell count of 10.5, hemoglobin 9.1, adan tocrit 28.3, platelet count of 305,000. A chem metabolic panel showing a BUN of 28, creatinine 1.1 o n the TCU floor. ASSESSMENT: Deconditioning, stage IIIB nonsmall cell cancer of the lung with mediastinal involvement , history of atrial fibrillation, seizure disorder with femoral stenting for peripheral vascular dise ase, pulmonary hypertension, chronic obstructive pulmonary disease, congestive cardiomyopathy, seizur e disorder, status post metal stenting for atherosclerotic cardiovascular disease with the patient on continuous oxygen for hypoxemia, symptomatic anemia. PLAN: The patient is to continue present medical regimen, transfusion of 1 unit of packed cells as p er Dr. Gomez, with the patient to continue reconditioning and her present medical regimen and resum ption of her chemotherapy when she is stable. Aaron Valadez MD cc: [phone] TT: 10/25/2016 14:47:50 Confirmation # [id number] Dictation # [id number] rn
--- NOTE | 2016-10-25 15:50 | CON ---
DATE: 10/25/2016 The patient is in room 321, bed 1. REASON FOR CONSULTATION: Coronary artery disease, lung CA, exacerbation of COPD. The patient on medical floor had also run of sinus tachycardia, atrial fib when patient was put on Do butrex, so it was stopped. The patient treated medically and patient improved. The patient has also inoperable lung CA, COPD, severe tricuspid regurg, mitral regurg. The patient on chemotherapy. The patient was treated on medical floor. She got stable and now she is admitted to transitional care rust for deconditioning and physical therapy. The patient denies any chest pain. Her breathing is be tter. Denies palpitation. PAST MEDICAL HISTORY: Significant for lung CA, inoperable, COPD, SVT, paroxysmal atrial fibrillation , mitral regurgitation, tricuspid regurgitation, history of PTCA with bare metal stent on 07/15/2016. RECENT CARDIAC WORKUP: The patient had echo 07/11/2016 with ejection fraction of 65%-70%, dilated RV and LA, right ventricle severely dilated, systolic function of RV severely reduced, mitral regurgitat ion severe, tricuspid regurgitation severe, RV systolic pressure of 123 mmHg which is severe pulmonar y hypertension. Following this, the patient underwent cardiac catheterization 07/15/2016, which revea led normal LV function, ejection fraction 55%, left main essentially free of any significant disease, bifurcation to LAD and circumflex, LAD was without any significant disease, circumflex was diffuse c alcification 30%-40% narrowing, RCA had 80%-90% stenosis in the proximal RCA where bare metal stent w as put in. Right heart catheterization revealed RA pressure of 10-12, RV pressure 60/110, PA pressur e 60/27, mean PA pressure 38, pulmonary capillary wedge pressure was 13, cardiac output was 3.83, car diac index 2.9, pulmonary vascular resistance 6.82 which is consistent with pulmonary hypertension. The above right heart was done after discontinuing the Primacor. Bare metal stent was put in because of short duration of dual antiplatelet therapy of Plavix and aspirin. The patient getting radiation and chemotherapy for lung CA. PERSONAL HISTORY: The patient denies drinking. She used to smoke until the time she was diagnosed w ith lung CA. Since then, she stopped. MEDICATIONS: At home, patient was taking Keppra, Cardizem, Revatio, phenytoin, gabapentin, folic aci d, Plavix, amiodarone, atenolol. FAMILY HISTORY: Not significant REVIEW OF SYSTEMS: All the systems were reviewed, positives mentioned in the history, others were ne gative. PHYSICAL EXAMINATION: VITAL SIGNS: Blood pressure 97/63, respirations 18, pulse 84, temperature 98.2. HEAD: Normocephalic. EYES: Pupils normal. Conjunctivae slightly pale. NECK: JVP low. Carotid equal. THORAX: AP diameter normal. LUNGS: No significant rales. CARDIOVASCULAR: S1, S2. ABDOMEN: Soft, no tenderness, no organomegaly. EXTREMITIES: No clubbing, no cyanosis. LABORATORY DATA: WBC 10.5, hemoglobin 9.1, hematocrit 28.3, platelet 305. Sodium 139, potassium 4.7 , BUN 28, creatinine 1.1, random glucose 96, calcium 8.9. AST, ALT normal, alkaline phosphatase 166, total protein 6.0, albumin 3.0. EKG on 10/21/2016 showed sinus tachycardia, first degree AV block, h eart rate was 129 at that time, right axis nonspecific ST-T changes. Chest x-ray 10/24/2016 left lowe r lobe infiltrate/mass, atelectasis/infiltrate right lower lobe. DIAGNOSES: Acute exacerbation of chronic obstructive pulmonary disease, bronchitis, pneumonia, new o nset atrial fibrillation, possibly secondary Dobutrex, severe right ventricular dysfunction, lung can cer, inoperable, severe tricuspid regurgitation, severe mitral regurgitation, moderate to severe pulm onary hypertension, deconditioning, stent was put on 07/15/2016. The patient's echocardiogram was don e 07/11/2016. DIAGNOSES: Exacerbation of chronic obstructive pulmonary disease, new onset atrial fibrillation seco ndary to Dobutrex, severe right ventricular dysfunction, moderate to severe pulmonary hypertension, s evere mitral regurgitation, severe tricuspid regurgitation, coronary artery disease, status post bare metal stent insertion, lung cancer, inoperable, on chemotherapy, anemia, deconditioning. PLAN: To continue physical therapy. The patient is on verapamil 40 mg t.i.d., amiodarone 200 mg p.o . daily, Dilantin 200 mg p.o. daily, aspirin 81 mg p.o. daily, folic acid 1 mg p.o. daily, heparin 50 00 units subq q. 8 hours, Keppra 500 mg b.i.d., Lipitor 40 mg p.o. daily, Maxipime 2 grams IV q. 8 ho urs, Neurontin 300 mg p.o. daily and 600 mg p.o. at bedtime, Protonix 40 daily, Revatio 20 mg b.i.d., Solu-Medrol 40 mg IV b.i.d., atenolol 12.5 mg b.i.d., Xopenex p.r.n., azithromycin 500 mg IV daily, linezolid 600 mg IV b.i.d. We will continue present therapy and will follow with you. Serenity Cartwright MD cc: [id number] TT: 10/25/2016 12:16:32 Confirmation # [id number] Dictation # [id number] en
--- NOTE | 2016-10-25 17:50 | CP.PCM.CON ---
History of Present Illness - History of Present Illness History of Present Illness: 61 year old female with PMH of stage3 IIIB non-small cell lung cancer S/P chemotherapy, COPD, atrial fibrillation, peripheral vascular disease S/P femoral stenting, benign brain tumor S/P removal in 2013, seizure disorder, pulmonary HTN, CAD S/P PCI, chronic CHF was intially admitted because of COPD exacerbation, eventually became febrile and found to have HCAP. She has done well on antibiotic therapy and is now transferred to [facility] for medical therapy and physical rehab. Infectious Diseases consult is requested to continue her antibiotic treatment. Currently the patient is comfortable, not in distress, breathing better, no fevers overnight. She still has cough which is improving, no headache or dizziness, no chest pain, no SOB, no diarrhea, no dysuria, no abdominal pain, no nausea or vomiting.\ Review of Systems - Review of Systems All systems: reviewed and no additional remarkable complaints except (as per HPI ) Past Patient History - Infectious Disease Hx of Infectious Diseases: None - Tetanus Immunizations Tetanus Immunization: Unknown - Past Medical History & Family History Past Medical History?: Yes - Past Social History Smoking Status: Former Smoker - CARDIAC Hx Cardiac Disorders: Yes Hx Congestive Heart Failure: Yes Hx Hypercholesterolemia: Yes Hx Hypertension: Yes - PULMONARY Hx Chronic Obstructive Pulmonary Disease (COPD): Yes - NEUROLOGICAL HX Cerebrovascular Accident: No - HEENT Hx HEENT Problems: Yes (eyeglasses) Hx Blind: No Hx Cataracts: No Hx Deafness: Yes (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 ear) Hx Epistaxis: No Hx Glaucoma: No Hx Macular Degeneration: No Other/Comment: ringing in ears - RENAL Hx Renal Failure: No - ENDOCRINE/METABOLIC Hx Diabetes Mellitus Type 1: No Hx Diabetes Mellitus Type 2: No Hx Hypothyroidism: No - HEMATOLOGICAL/ONCOLOGICAL Hx Blood Disorders: Yes Hx Anemia: Yes (blood transfusion) Hx Cancer: Yes (lung dx 04/2016) Hx Chemotherapy: Yes (and radiation) Other/Comment: uterine ca over yrs ago - INTEGUMENTARY Hx Dermatological Problems: No Hx Basil Cell: No Hx Eczema: No Hx Melanoma: No Hx Psoriasis: No Hx Squamous Cell: No - MUSCULOSKELETAL/RHEUMATOLOGICAL Hx Falls: No - GASTROINTESTINAL Hx Gastrointestinal Disorders: Yes (gastritis) Hx Colostomy: No Hx Crohn's Disease: No Hx Diverticulitis: No Hx Gall Bladder Disease: Yes Hx Gastroesophageal Reflux: Yes Hx Ileostomy: No Hx Liver Failure: No Hx Pancreatitis: Yes HX Swallowing Problems: No Other/Comment: colonoscopy 02/2016 dx diverticulosis, ascending colon ulceration , colon polyp - GENITOURINARY/GYNECOLOGICAL Hx Genitourinary Disorders: Yes (cervical,uterine ca) Hx Hematuria: No Hx Incontinence: No Hx Sexually Transmitted Disorders: No Hx Urinary Tract Infection: No Other/Comment: hx fibroids had hyst due to fibroids - PSYCHIATRIC Hx Psychophysiologic Disorder: Yes Hx Anxiety: Yes Hx Bipolar Disorder: No Hx Depression: No Hx Emotional Abuse: No Hx Hallucinations: No Hx Panic Symptoms: No Hx Post Traumatic Stress Disorder: No Hx Psychosis: No Hx Physical Abuse: No Hx Schizophrenia: No Hx Sexual Abuse: No - SURGICAL HISTORY Hx Amputation: No Hx Appendectomy: No Hx Cardiac Catheterization: No Hx Cholecystectomy: Yes Hx Coronary Stent: Yes Hx Gastric Bypass Surgery: No Hx Hysterectomy: Yes Hx Joint Replacement: No Hx Kidney Transplant: No Hx Liver Transplant: No Hx Mastectomy: No Hx Musculoskeletal Surgery: No Hx Open Heart Surgery: No Hx Orthopedic Surgery: No Hx Splenectomy: No Hx Valve Replacement: No Other/Comment: polypectomy, r cw pac - ANESTHESIA Hx Anesthesia Reactions: No Hx Malignant Hyperthermia: No Meds Allergies/Adverse Reactions: Allergies Allergy/AdvReac Type Severity Reaction Status Date / Time diallo Allergy RASH Verified 08/15/16 00:27 - Medications Medications: Current Medications Acetaminophen (Tylenol 325mg Tab) 650 mg PO Q4H PRN; Protocol PRN Reason: Headache Amiodarone HCl (Cordarone) 200 mg PO DAILY DANICA PRN Reason: Protocol Aspirin (Ecotrin) 81 mg PO DAILY DANICA PRN Reason: Protocol Atenolol (Tenormin) 12.5 mg PO BID DANICA PRN Reason: Protocol Atorvastatin Calcium (Lipitor) 40 mg PO DIN DANICA PRN Reason: Protocol Benzonatate (Tessalon Perles) 100 mg PO TID DANICA PRN Reason: Protocol Folic Acid (Folic Acid) 1 mg PO DAILY DANICA PRN Reason: Protocol Gabapentin (Neurontin) 300 mg PO PCB DANICA PRN Reason: Protocol Gabapentin (Neurontin) 600 mg PO HS DANICA PRN Reason: Protocol Heparin Sodium (Porcine) (Heparin) 5,000 units SC Q8 DANICA PRN Reason: Protocol Cefepime HCl (Maxipime 2gm) 2 gm in 100 mls @ 100 mls/hr IVPB Q8 DANCIA PRN Reason: Protocol Stop: 10/29/16 22:01 Azithromycin (Zithromax 500mg In Ns) 500 mg in 250 mls @ 250 mls/hr IVPB 0600 DANICA PRN Reason: Protocol Linezolid (Zyvox 600mg/300ml D5w) 600 mg in 300 mls @ 200 mls/hr IVPB 0600, 1800 DANICA PRN Reason: Protocol Stop: 11/01/16 06:01 Ipratropium [place] (Atrovent) 0.5 mg IH [id number] DANICA PRN Reason: Protocol Last Admin: 10/24/16 20:57 Dose: Not Given Levalbuterol HCl (Xopenex) 1.25 mg IH [id number] DANICA PRN Reason: Protocol Last Admin: 10/24/16 20:57 Dose: Not Given Levetiracetam (Keppra) 500 mg PO BID DANICA PRN Reason: Protocol Methylprednisolone (Solu-Medrol) 40 mg IVP 0600,1800 DANICA PRN Reason: Protocol Oxycodone/Acetaminophen (Percocet 5/325 Mg Tab) 1 tab PO Q6H PRN; Protocol PRN Reason: Pain, moderate (4-7) Stop: 10/27/16 20:14 Pantoprazole Sodium (Protonix Ec Tab) 40 mg PO 0630 DANICA PRN Reason: Protocol Phenytoin (Dilantin) 100 mg PO PCB DANICA PRN Reason: Protocol Phenytoin (Dilantin) 200 mg PO HS DANICA PRN Reason: Protocol Promethazine HCl/Codeine (Phenergan/Codeine Oral Syrup) 5 ml PO Q4H PRN; Protocol PRN Reason: Cough and congestion Sildenafil Citrate (Revatio) 20 mg PO BID DANICA PRN Reason: Protocol Verapamil HCl (Calan Tab) 40 mg PO TID DANICA PRN Reason: Protocol Zolpidem Tartrate (Ambien) 5 mg PO HS PRN; Protocol PRN Reason: Insomnia Physical Exam - Constitutional Appears: Non-toxic, No Acute Distress - Head Exam Head Exam: NORMAL INSPECTION - ENT Exam ENT Exam: Mucous Membranes Moist - Neck Exam Neck exam: Negative for: Lymphadenopathy, Meningismus - Respiratory Exam Respiratory Exam: Decreased Breath Sounds - Cardiovascular Exam Cardiovascular Exam: +S1, +S2 - GI/Abdominal Exam GI & Abdominal Exam: Soft. absent: Tenderness Results - Labs Result Diagrams: 10/25/16 06:30 10/25/16 06:30 Assessment & Plan - Assessment and Plan (Free Text) Plan: Assessment Acute hypoxic respiratory failure with sepsis due to right lower lobe healthcare -associated pneumonia, clinically improving stage3 IIIB non-small cell lung cancer S/P chemotherapy COPD atrial fibrillation peripheral vascular disease S/P femoral stenting benign brain tumor S/P removal in 2013 seizure disorder pulmonary HTN CAD S/P PCI chronic CHF obesity with BMI 33 Plan continue Cefepime, Zithromax and Zyvox day 4; repeat blood cx negative discussed with Dr. Singh previously will continue to monitor clinical response
[2016-10-25] MEDS: Linezolid 600 mg in D5W 300 ml 600 MG/300 ML BAG IVPB SCH (19:00)
--- NOTE | 2016-10-25 20:28 | PN ---
DATE: 10/25/2016 The patient was seen in transitional care unit. The patient is feeling better. She continues improving. She continues, however, with a productive cough and some exertional shortness of breath. PHYSICAL EXAMINATION: VITAL SIGNS: Stable. Temperature 98.2, pulse 84 regular, blood pressure 97/63 , respiratory rate 18, oxygen saturation is 97%. GENERAL: She is comfortable in bed, alert, awake, oriented. HEENT: Head is normocephalic, atraumatic. Oral mucosa is moist. NECK: Supple. LUNGS: With decreased breath sounds and some crackles in the lower lungs. HEART: With regular rhythm, rate 80 per minute. ABDOMEN: Soft, nontender, nondistended. EXTREMITIES: With no edema. LABORATORY DATA: Her CBC showed stable hemoglobin 9.1 with hematocrit 28.3 and WBC 10.5. Chemistry with normal electrolytes. Stable renal function with BUN 28 and creatinine 1.1. ASSESSMENT: 1. History of sepsis with bilateral pneumonia. 2. Status post respiratory failure. 3. Exacerbation of chronic obstructive pulmonary disease with persistent productive cough. 4. Anemia of chronic disease. 5. Severe pulmonary hypertension with dilated cardiomyopathy. 6. General deconditioning. PLAN OF TREATMENT: The patient will be maintained on her IV antibiotics - Zithromax, Zyvox and Maxipime. Will continue nebulizer treatment. I added chest PT to improve her cough and mucus production. The patient will start physical therapy as tolerated. Will continue closely her electrolytes and hemoglobin as well as cardiac status. Keira Keith MD cc: [id number] TT: 10/25/2016 20:27:37 Confirmation # [id number] Dictation # [id number] simran ALVARADO
--- NOTE | 2016-10-25 22:33 | CON ---
DATE: 10/25/2016 REFERRING PHYSICIAN: Dr. Keith. REASON FOR CONSULT: Chronic obstructive lung disease, respiratory failure, lung cancer, pulmonary hy pertension, resolving pneumonia. HISTORY OF PRESENT ILLNESS: This is a 61-year-old female with multiple medical issues including unre sectable lung cancer requiring radiation, been on chemotherapy, chronic obstructive lung disease with severely decreased FEV1, found to have a severe pulmonary hypertension, also has sleep apnea syndrom e, this time admitted with respiratory failure requiring noninvasive ventilation, was in the intensiv e care unit. Since then, she is on and off using noninvasive ventilation, treated with high dose of steroids and antibiotics, pulmonary vasodilator, gastric prophylaxis. Presently admitted to [facility] for continued care. She is sitting side of the bed, having lunch. Been on noninvasive ventilation on a nd off. Still has a cough, occasional blood. No nausea, no vomiting, no diarrhea, no leg pain or le g swelling. PAST MEDICAL HISTORY: Chronic obstructive lung disease, pulmonary hypertension, unresectable lung ca ncer, status post radiation therapy and chemotherapy, recurrent pneumonia. ALLERGIES: None known. SHE HAS SEASONAL ALLERGIES. SOCIAL HISTORY: Recently stopped smoking. Denied any alcohol use. FAMILY HISTORY: Positive for cancer and excessive alcohol use. MEDICATIONS: She is on Ambien 5 mg at bedtime p.r.n., Atrovent 0.5 mg q. 4 hours, Calan 40 mg 3 kashmir es a day, amiodarone 200 mg daily, Dilantin 200 mg at bedtime and Dilantin 100 mg p.c.b., Ecotrin 81 mg daily, folic acid 1 mg daily, heparin 5000 units subQ q. 8 hours, Keppra 500 mg twice a day, Lipit or 40 mg daily, cefepime 2 g IV q. 8 hours, Neurontin 600 mg at bedtime, Neurontin, also 300 mg p.c.b ., Percocet 5/325 one tab q. 6 hours p.r.n., promethazine with codeine, Protonix 40 mg daily, Revati o 20 mg twice a day, Solu-Medrol 40 mg twice a day, Tenormin 12.5 mg twice a day, Tessalon Perles 3 t imes a day, Tylenol on a p.r.n. basis, Xopenex 1.25 mg q. 4 hours, Zithromax 500 mg daily, Zyvox 600 mg twice a day. REVIEW OF SYSTEMS: No headache, no rhinitis. Has a cough, blood-tinged sputum, shortness of breath. No nausea, no vomiting, no diarrhea, no leg pain or leg swelling. PHYSICAL EXAMINATION: GENERAL: Sitting up in a bed, having dinner. VITAL SIGNS: Temperature is 98, heart rate is 84, respiratory rate is 20, blood pressure 99/69, puls e ox 97% on noninvasive ventilation. HEENT: Moist mucous membranes. Crowded airway. NECK: Supple. No JVD. LUNGS: Has crackles at the bases, scattered rhonchi and wheezing. HEART: S1, S2. ABDOMEN: Soft, nontender. No organomegaly. EXTREMITIES: There is no edema. NEUROLOGIC: Awake, alert, follows simple commands. LABORATORY DATA: Shows hemoglobin 9.1, hematocrit 28.3, WBC 10.5, platelet is 305. Sodium 139, AST 35, ALT 50, alkaline phosphatase is 166, albumin is 3.0. IMPRESSION AND PLAN: Respiratory failure requiring noninvasive ventilation, severe pulmonary hyperte nsion, severe obstructive lung disease, unresectable lung cancer requiring radiation therapy, been on chemotherapy, aspiration pneumonia, paroxysmal atrial fibrillation. Still has some cough and blood- tinged sputum. Continue as needed noninvasive ventilation, antibiotics, bronchodilator, pulmonary va sodilator. Gastric prophylaxis. Overall, poor prognosis. Continue therapy. Thank you and will follow with you. Serenity Martinez MD cc: [phone] TT: 10/25/2016 22:32:34 Confirmation # [id number] Dictation # [id number] dio
[2016-10-26] MEDS: Promethazine/Cod 6.25mg-10mg/5ml Syr UD PO PRN ×3 (01:50→14:04)
[2016-10-26] MEDS: Levalbuterol 1.25 MG/3 ML Inhal Soln UD IH SCH ×6 (03:00→21:39)
[2016-10-26] MEDS: Ipratropium 0.02% Inhal Soln (0.5 mg/2.5 ml) UD IH SCH ×6 (04:37→23:00)
[2016-10-26] MEDS: Azithromycin 500MG/NS 250ml 500 MG/250 ML BAG IVPB SCH (05:03)
[2016-10-26] MEDS: Cefepime IV 2 gm in NS 2 GM/100 ML BAG IVPB SCH ×3 (05:03→22:23)
[2016-10-26] MEDS: MethylPREDNISolone 40 mg Vial IVP SCH ×2 (05:08→18:54)
[2016-10-26] MEDS: Linezolid 600 mg in D5W 300 ml 600 MG/300 ML BAG IVPB SCH ×2 (05:28→18:54)
[2016-10-26] MEDS: Pantoprazole 40 mg EC Tab PO SCH (06:27)
[2016-10-26 06:50] LABS: ADD MANUAL DIFF? NO
[2016-10-26 07:05] LABS: ALKALINE PHOSPHATASE 141 U/L (38-133); ALT/SGPT 41 U/L (7-56); AST/SGOT 27 U/L (15-39); BILIRUBIN,TOTAL 0.3 mg/dL (0.2-1.3); BLOOD UREA NITROGEN 23 mg/dL (7-21); CALCIUM 8.3 mg/dL (8.4-10.5); CARBON DIOXIDE 28 mmol/L (21-33); CHLORIDE 106 mmol/L (98-107); GFR AFRICAN-AMERICAN > 60; GLUCOSE,RANDOM 126 mg/dL (70-110); POTASSIUM 4.6 mmol/L (3.6-5.0); SODIUM 139 mmol/L (132-148); TOTAL PROTEIN 5.5 g/dL (5.8-8.3)
[2016-10-26 07:29] LABS: BASO # 0.02 K/mm3 (0.0-2.0); BASO % 0.2 % (0.0-3.0); EOS % 0.1 % (1.5-5.0); GRAN % 84.4 % (50.0-68.0); HEMATOCRIT 31.2 % (36.0-48.0); LYMPH # 0.6 (1.2-3.4); LYMPH % 6.3 % (22.0-35.0); MEAN CELL VOLUME 91.5 fL (80.0-105.0); MEAN CORPUSCULAR HGB CONC 31.7 g/dl (31.0-37.0); MONO # 0.9 (0.1-0.6); PLATELET COUNT 280 10^3/uL (120.0-450.0); RED CELL DISTRIBUTION WIDTH 16.8 % (11.5-14.5); WHITE BLOOD COUNT 9.5 10^3/ul (4.5-11.0)
[2016-10-26] MEDS: Sildenafil 20 MG TAB PO SCH ×2 (09:11→18:55)
[2016-10-26] MEDS: Phenytoin 100 mg/4 ml Oral Susp UD PO SCH (09:15)
--- NOTE | 2016-10-26 12:10 | PN ---
DATE: 10/26/2016 The patient is in bed in no acute distress, nontoxic. PHYSICAL EXAMINATION: VITAL SIGNS: Temperature is 98. Blood pressure is 101/50, respiratory rate of 16. HEENT: Unremarkable. NECK: Supple. LUNGS: Have decreased breath sounds. HEART: Normal S1, S2. ABDOMEN: Soft. LABORATORY DATA: Reveals a white count of 9.5, hemoglobin of 9. Chemistries, BUN of 23, creatinine of 1.1. ASSESSMENT AND PLAN: This is a 61-year-old female with stage III nonsmall cell lung cancer, status p ost chemotherapy in patient with chronic obstructive lung disease, atrial fibrillation, peripheral va scular disease, status post femoral stenting, benign brain tumor, status post removal in 2013, seizur e disorder, pulmonary hypertension, coronary artery disease, admitted with acute hypoxic respiratory failure, sepsis due to right lower lobe healthcare-associated, with nonsmall cell lung cancer status post chemotherapy, chronic obstructive pulmonary disease, atrial fibrillation and peripheral vascular disease. On cefepime, Zithromax and Zyvox, day #5. Review of the orders confirms the cefepime to b e active. The patient is also on Solu-Medrol. The patient is on IV Zithromax and IV Zyvox. Will fo llow with you. The patient's last procalcitonin on the was 0.64. We will change the azithromyc in to p.o. Delvis Tinsley MD cc: [phone] TT: 10/26/2016 12:09:28 Confirmation # [id number] Dictation # [id number] stephanie
[2016-10-26] MEDS: Bacitracin Ointment 30 GM TUBE TOP SCH (14:00)
--- NOTE | 2016-10-26 14:45 | PN ---
DATE: 10/26/2016 This is the patient's hospital visit on TCU floor. For Dr. Gomez. SUBJECTIVE: The patient is a 61-year-old female, seen sitting up in bed. Family at the bedside, adm itted for reconditioning, originally for pneumonia, respiratory compromise and now transferred to [facility] with the patient in no acute distress with BiPAP on. She was transfused 1 unit of blood yesterday with good effect and reports that there is some oozing from an abdominal wound, possibly secondary to injections that she received there with ecchymotic changes noted on the abdominal wall. The patient is known to suffer from stage IIIB nonsmall cell CA of the lung with mediastinal involvement with se yue cardiomyopathy and hypoxemia. She requires continuous oxygen. She is otherwise without complai nt. PHYSICAL EXAMINATION: VITAL SIGNS: Temperature 98.2, pulse 84, respirations 18, blood pressure 101/55 with a pulse ox of 9 7%. HEENT: BiPAP is on. Otherwise unremarkable. NECK: Supple. HEART: Regular rate, occasional ectopic beat. LUNGS: Decreased breath sounds. Occasional rhonchi. ABDOMEN: Obese, soft, and nontender. SKIN: Warm, dry and clear. She does have an abraded area that is oozing after Band-Aid is removed. We will apply bacitracin with a pressure dressing for this. EXTREMITIES: Faint +1 edema. NEUROLOGIC: Awake, alert and oriented. LABORATORY DATA: The patient's labs were done. White blood cell count 9.5, hemoglobin 9.9, hematocr it 31.2, platelet count of 280,000. Hemoglobin is status post transfusion 1 unit of packed cells. H emoglobin 9.1 yesterday. Her chem metabolic panel shows a BUN of 23, creatinine of 1.0 with a calciu m of 8.3, total protein 5.5. ASSESSMENT: Deconditioning, stage IIIB nonsmall cell cancer of the lung, mediastinal involvement, hi story of atrial fibrillation, history of seizure disorder, femoral stenting peripheral vascularly, pu lmonary hypertension, chronic obstructive pulmonary disease, congestive cardiomyopathy, seizure disor renard, status post metal stenting, on continuous oxygen for hypoxemia with symptomatic anemia for which she was transfused 1 unit of blood yesterday with good effect, history of surgery for benign brain t umor in 2013, right lower lobe pneumonia. PLAN: The patient is to continue present medical regimen. We will monitor clinically and check her labs in the morning. Prognosis for this patient is guarded. Continue reconditioning. Aaron Valadez MD cc: [phone] TT: 10/26/2016 14:44:54 Confirmation # [id number] Dictation # [id number] stephanie
--- NOTE | 2016-10-26 19:29 | PN ---
DATE: 10/26/2016 REFERRING PHYSICIAN: Dr. Singh. SUBJECTIVE: She is sitting up in a bed. Family and friends at bedside. Night was unremarkable. St ill using noninvasive ventilation as needed. Cough is better. No more blood. Still has shortness of breath. No nausea, no vomiting, diarrhea. No leg pain or leg swelling. OBJECTIVE: GENERAL: No acute distress. VITAL SIGNS: Temperature is 98, heart rate is 83, respiratory rate is 18, blood pressure 104/65, pul se ox 97% on nasal cannula. HEENT: Moist mucous membranes. Crowded airway. Mallampati score is 4. NECK: Supple. No JVD. LUNGS: A few crackles and scattered rhonchi. HEART: S1 and S2. ABDOMEN: Soft, nontender. No organomegaly. EXTREMITIES: No edema. NEUROLOGIC: Awake, alert, follows simple commands. MEDICATIONS: She is on Ambien 5 mg at bedtime p.r.n., Atrovent 0.5 mg q. 4 hours, bacitracin ointmen t to affected area, Calan 40 mg 3 times a day, amiodarone 200 mg daily, Dilantin 200 mg at bedtime, D ilantin 100 mg PCB, Ecotrin 81 mg daily, folic acid 1 mg daily, heparin 5000 units subQ q. 8 hours, K eppra 500 mg twice a day, Lipitor 40 mg daily, cefepime 2 g IV q. 8 hours, Neurontin 600 mg at bedtim e, also Neurontin 300 mg PCB, Percocet 5/325 one tab q. 4 hours p.r.n., Phenergan with codeine q. 4 h ours p.r.n., Protonix EC 40 mg daily, Revatio 20 mg twice a day, Solu-Medrol 40 mg twice a day, Tenor min 12.5 mg daily, Tessalon Perles 3 times a day, Tylenol on a p.r.n. basis, Xopenex 1.25 mg q. 4 lionel rs p.r.n., Zithromax 500 mg daily, Zyvox 600 mg twice a day. LABORATORY DATA: Shows hemoglobin 9.9, hematocrit 31.2, WBC 9.5, platelet count is 280. Sodium 139, potassium 4.6, chloride 106, bicarbonate 28, BUN 23, creatinine 1.0. Glucose is 126, calcium 8.3, A ST 27, ALT 41, alkaline phosphatase is 141, albumin is 2.8. IMPRESSION AND PLAN: Respiratory failure requiring noninvasive ventilation, severe pulmonary hyperte nsion, severe obstructive lung disease, unresectable lung cancer requiring radiation therapy, been on chemotherapy, aspiration pneumonia, paroxysmal atrial fibrillation, activities of daily living dysfu nction. Spoke to family and friends at bedside. All their questions answered. We will continue BiP AP while sleeping, IV and inhaled bronchodilator. Gastric prophylaxis. Sequential compression devic es to lower extremity. Fall precautions. Continue therapy. Thank you and will follow with you. Serenity Martinez MD cc: [phone] TT: 10/26/2016 19:28:43 Confirmation # [id number] Dictation # [id number] stephanie
[2016-10-26] MEDS ORDERED: Phenytoin 100 mg/4 ml Oral Susp UD PO SCH (22:03)
--- NOTE | 2016-10-26 22:50 | PN ---
DATE: 10/26/2016 A 61-year-old female well known to us from prior admissions who is now in the transitional care unit after being admitted for sepsis and bilateral pneumonia with recent respiratory failure. She has a m ain complaint today that the cough just does not seem to be going away and the shortness of breath se ems to be very appropriately controlled, as we walked in the room, she was using her BiPAP and her da ughter was visiting and noted slight puffiness around the face, perhaps a reaction to the mask, perha ps needed some adjustments so we asked them to discuss this with the therapist as he comes in for her next respiratory treatment. She is being followed together with Drs. Martinez and Sophie and notes antonio maynard. She is in transitional care unit for deconditioning as her current bout of recent chemo may have rendered her slightly weak. PHYSICAL EXAMINATION: GENERAL: The patient is alert and oriented to all spheres and offers only the complaint of her produ ctive cough that seems to be a nagging complaint of the past few admissions this year. VITAL SIGNS: Temperature is 98 degrees, pulse rate is 91, blood pressure is 118/90, respiratory rate of 20 on BiPAP. HEENT: Oral mucosa is clear. There is no thrush. Pupils are equally round and reactive to light an d accommodation. Nares are clear and there is no discharge. NECK: Supple, no cervical lymphadenopathy, no bruit, no masses. LUNGS: Have diminished breath sounds, but no expiratory wheeze. There seems to be a fair amount of air exchange. HEART: Distant in sound, but regular in rhythm. ABDOMEN: Soft. Bowel sounds are present. No masses palpated. EXTREMITIES: Do show some residual edema and she is wondering whether her support stockings will be put back on or why that is not being put on at this time; the compression stockings that she had on p rior admissions. LABORATORY DATA: The recent electrolytes were acceptable and her H and H seems adequate at 10 and 31 and normal platelet count. Some dysproteinemia noted this morning with a total protein of 5.5. Nev ertheless, she is in good spirits. IMPRESSION: Status post bilateral pneumonia, improving; recent sepsis, paroxysmal atrial fibrillatio n, seizure disorder, pulmonary hypertension, coronary artery disease. PLAN OF CARE: The patient seems to be maintained on Solu-Medrol for now, IV Zyvox and Zithromax. We appreciate the input from Patricia Moscoso and Mya, and Dr. Martinez is managing pulmona ry. Plan as directed through Dr. Martinez, to continue the BiPAP while sleeping, continue her IV and i nhaled bronchodilators and will reinstitute sequential compression devices to the lower extremity. Kit Longoria MD cc: 73 TT: 10/26/2016 22:49:42 Confirmation # [id number] Dictation # [id number] dn
[2016-10-27] MEDS: Promethazine/Cod 6.25mg-10mg/5ml Syr UD PO PRN ×3 (00:04→21:35)
[2016-10-27] MEDS: Levalbuterol 1.25 MG/3 ML Inhal Soln UD IH SCH ×5 (03:19→22:25)
[2016-10-27] MEDS: Ipratropium 0.02% Inhal Soln (0.5 mg/2.5 ml) UD IH SCH ×5 (03:19→22:25)
[2016-10-27] MEDS: Cefepime IV 2 gm in NS 2 GM/100 ML BAG IVPB SCH ×3 (05:05→21:38)
[2016-10-27] MEDS: MethylPREDNISolone 40 mg Vial IVP SCH ×2 (05:06→17:31)
[2016-10-27] MEDS: Linezolid 600 mg in D5W 300 ml 600 MG/300 ML BAG IVPB SCH (05:07)
[2016-10-27] MEDS: Oxycodone/Acetaminophen 5/325 mg Tab PO PRN (05:25)
[2016-10-27] MEDS: Pantoprazole 40 mg EC Tab PO SCH (05:34)
[2016-10-27] MEDS: Phenytoin 100 mg/4 ml Oral Susp UD PO SCH (05:47)
[2016-10-27 07:02] LABS: ADD MANUAL DIFF? NO
[2016-10-27 07:33] LABS: ALB/GLOB RATIO 1.2 (1.1-1.8); ALKALINE PHOSPHATASE 132 U/L (38-133); ALT/SGPT 47 U/L (7-56); AST/SGOT 31 U/L (15-39); BILIRUBIN,TOTAL 0.4 mg/dL (0.2-1.3); BLOOD UREA NITROGEN 20 mg/dL (7-21); CALCIUM 8.6 mg/dL (8.4-10.5); CARBON DIOXIDE 29 mmol/L (21-33); CHLORIDE 104 mmol/L (98-107); GFR AFRICAN-AMERICAN > 60; GLUCOSE,RANDOM 92 mg/dL (70-110); SODIUM 138 mmol/L (132-148); TOTAL PROTEIN 5.5 g/dL (5.8-8.3)
[2016-10-27 08:29] LABS: BASO # 0.02 K/mm3 (0.0-2.0); BASO % 0.2 % (0.0-3.0); EOS % 0.1 % (1.5-5.0); GRAN # 9.31 (1.4-6.5); GRAN % 90.3 % (50.0-68.0); HEMATOCRIT 32.9 % (36.0-48.0); LYMPH # 0.5 (1.2-3.4); MEAN CELL VOLUME 91.9 fL (80.0-105.0); MEAN CORPUSCULAR HEMOGLOBIN 29.6 pg (25.0-35.0); MEAN CORPUSCULAR HGB CONC 32.2 g/dl (31.0-37.0); MEAN PLATELET VOLUME 10.1 fl (7.0-11.0); MONO # 0.5 (0.1-0.6); MONO % 4.4 % (1.0-6.0); PLATELET COUNT 298 10^3/uL (120.0-450.0); RED CELL DISTRIBUTION WIDTH 17.1 % (11.5-14.5); WHITE BLOOD COUNT 10.3 10^3/ul (4.5-11.0)
[2016-10-27] MEDS: Sildenafil 20 MG TAB PO SCH ×2 (10:40→17:33)
[2016-10-27] MEDS: Bacitracin Ointment 30 GM TUBE TOP SCH (10:41)
--- NOTE | 2016-10-27 10:55 | PN ---
DATE: 10/27/2016 The patient seen earlier in room 321. No fevers, no chills, no nausea, no vomiting. PHYSICAL EXAMINATION: VITAL SIGNS: Temperature is 97, blood pressure is 90/60, respiratory rate of 20. HEENT: Unremarkable. NECK: Supple. LUNGS: Have decreased breath sounds. HEART: Normal S1, S2. ABDOMEN: Soft. LABORATORY EXAMINATION: Reveals a white count of 10,000, hemoglobin of 10, platelets of 298. Chemis tries reveals the BUN of 20, creatinine of 0.9. Microbiology is noted and blood cultures are reporte d to be negative. Dr. Longoria's note is reviewed. Dr. Martinez's note is reviewed. ASSESSMENT AND PLAN: A 61-year-old female, stage III nonsmall cell lung cancer, status post chemothe rapy, chronic obstructive lung disease, atrial fibrillation, peripheral vascular disease, status post femoral stenting, benign brain tumor status post removal in 2013, history of seizure disorder, pulmo nary hypertension, coronary artery disease. Was admitted with acute hypoxic respiratory failure and sepsis due to a right lower lobe healthcare-associated pneumonia with nonsmall cell lung cancer, stat us post chemotherapy with chronic obstructive lung disease, atrial fibrillation and peripheral vascul ar disease, on cefepime, Zithromax and Zyvox day #6. Afebrile, normal white count, on p.o. Zithromax and will discontinue the p.o. Zithromax and discontinue the IV Zyvox. The patient's procal was elev ated on the 24th at 0.6. Today is day #6. We will use cefepime and doxycycline and repeat the proca lcitonin. If normalized, will discontinue the antibiotics tomorrow on the 7th day. Delvis Tinsley MD cc: 350 TT: 10/27/2016 10:54:58 Confirmation # [id number] Dictation # [id number] en
--- NOTE | 2016-10-27 12:07 | PN ---
DATE: 10/27/2016 REASON FOR CONSULTATION AND FOLLOWUP: Cardiac evaluation, history of coronary artery disease, SVT. 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 Admitted with shortness of breath. Now, patient is in transitional care unit for the continuity of care. Denies any chest pain, shortness of breath, any palpitation. PHYSICAL EXAMINATION: VITAL SIGNS: Temperature afebrile, heart rate 74, blood pressure 90/62. HEENT: PERRLA. Extraocular muscles intact. NECK: Supple. No carotid bruits. No thyromegaly. CHEST: Clear to auscultation. HEART: S1, S2 regular. ABDOMEN: Soft. EXTREMITIES: Clubbing, cyanosis negative. BLOOD WORKUP: WBC 10.3, hemoglobin 10. , hematocrit 32.9, platelet count 298. Chemistry shows s odium 130, potassium 5, chloride 104, carbon dioxide 29, anion gap of 10, BUN 20, creatinine 0.9. IMPRESSION: Supraventricular tachycardia, secondary to Dobutrex, now controlled, chronic obstructive pulmonary disease, mitral regurgitation, tricuspid regurgitation, preserved left ventricular functio n, coronary artery disease, status post bare metal stent in July, peripheral arterial disease, of f Plavix because it was a bare metal stent. Continue baby aspirin. Continue verapamil 40 mg 3 times a day. Continue amiodarone. Continue phenytoin. Amiodarone dose was decreased to 200 mg once a da y to prevent . We will follow with you. Thank you, Dr. Longoria/Dr. Singh, for providing us the opportunity in taking care of the patient. Of note, the yesterday prognosis is not available as of this time, is not transcribed yet. Serenity Maguire MD cc: [id number] TT: 10/27/2016 12:06:14 Confirmation # [id number] Dictation # [id number] en
--- NOTE | 2016-10-27 15:26 | PN ---
DATE: 10/27/2016 We are following the patient for Dr. Singh during her weekend off. This patient is known to our s ervice. A 61-year-old female with stage III nonsmall cell lung cancer who is nonresectable and has b een receiving chemotherapy, severe chronic obstructive pulmonary disease as a baseline, pulmonary hyp ertension, recent onset of atrial fibrillation, peripheral vascular disease and history of recent met al stent placed for CAD in July of this year, history of a benign brain tumor, subsequent seizure disorder and she is being closely followed with Dr. Martinez, Dr. Maguire, Dr. Tinsley with a recent r ecommendation to continue sequential compression stockings I do not see on this morning, but we will check with the front staff and her recurrent complaints of cough that have been ongoing for the past few months, but today she says perhaps it is better. She is in better spirits and seems to be more r esigned to her current state where she is not feeling sorry for herself for not being able to achieve what she could in the past and has accepted her limitations. She is very willing to continue the Bi PAP that Dr. Martinez has recommended, at least for sleep to defer any further deterioration of her res pirations. Reviewed this morning notes that during this admission, Dr. Maguire's notes, there was a janey t of supraventricular tachycardia and no emphasis made on the irregularity of her heartbeat. She is comfortable, in no respiratory distress and has just recently asked the staff to allow her to give he rself her shower and looks forward to continuing to help in her own care rather than rely on the outs kamron. Dr. Valadez is overseeing her current cancer status as Dr. Gomez is off. PHYSICAL EXAMINATION: GENERAL: Well-hydrated, alert and oriented to all spheres and can carry on an excellent sensible con versation. SKIN: Turgor is very good, no edema appreciated. HEENT: Pupils are equally round and reactive to light and accommodation. Extraocular movement is in tact. Conjunctivae are pink and no scleral icterus. Oral mucosa is moist, free of thrush. NECK: Supple, no palpable lymphadenopathy. LUNGS: Have diminished breath sounds in the right lower lobe and some rhonchi, otherwise excellent. No wheeze, no increased bronchovesicular sounds. HEART: Irregular in rhythm, no S3 appreciated, and very distant in sound. ABDOMEN: Soft, bowel sounds are present, nontender, no rebound. EXTREMITIES: No edema. Full range of motion. IMPRESSION: Community-acquired pneumonia, recent respiratory failure, pulmonary hypertension, lung c ancer stage III. Skin today shows some extra oozing at the site where the injections had been given, probably related to her anticoagulation with the Plavix. Overall, she is doing well and will contin ue to participate with her physical therapy as she does have some strenuous steps to arrange at home. PLAN OF CARE: Continue the subacute rehab for now and as per the consultants. Dr. Tinsley has ma de changes in her antibiotic therapy. No changes were noted in Dr. Maguire's note today and Dr. Martinez will continue close followup with her BiPAP and further recommendations. Her cancer remains in the d omain of Dr. Gomez and at present, no chemotherapy is planned. The patient understands our plan of care and will continue with her participation. Kit Longoria MD cc: [id number] TT: 10/27/2016 15:25:12 Confirmation # [id number] Dictation # [id number] en
--- NOTE | 2016-10-27 15:51 | PN ---
DATE: 10/27/2016 This is the patient's hospital visit on TCU. For Dr. Gomez. SUBJECTIVE: The patient is a 61-year-old female, seen sitting up in bed, oxygen on, reporting that s he is feeling better, now for reconditioning after treatment for pneumonia, respiratory compromised, with transfusion effected yesterday for her symptomatic anemia, now with an improved hemoglobin. She is otherwise without complaint today, having oxygen on. PHYSICAL EXAMINATION: VITAL SIGNS: Temperature 97.5, pulse 74, respirations 20, blood pressure 90/62, pulse ox 98%. HEENT: Unremarkable. Oxygen is on. NECK: Supple. HEART: Regular rate. LUNGS: Clear. ABDOMEN: Obese, soft, and nontender. EXTREMITIES: Faint +1 edema. NEUROLOGIC: Awake, alert, and oriented x 3. SKIN: Otherwise, warm, dry and clear. LABORATORY DATA: White blood cell count of 10.3, hemoglobin 10.6 after transfusion of 1 unit of pack ed cells recently from a hemoglobin of 9.1 two days ago; hematocrit 32.9, platelet count of 298,000 w ith a chem metabolic panel completely within normal range. ASSESSMENT: Deconditioning; stage IIIB nonsmall cell carcinoma of the lung, mediastinal involvement; history of atrial fibrillation, seizure disorder, femoral stenting, peripheral vascular disease, pul monary hypertension, chronic obstructive pulmonary disease; congestive cardiomyopathy, status post me shell stenting; hypoxemia, anemia of chronic disease, history of surgery for brain tumor 2013, right lo wer lobe pneumonia. PLAN: For this patient is to continue present medical regimen with reconditioning protocols as per T [facility]. Continue with present medical regimen. Aaron Valadez MD cc: [id number] TT: 10/27/2016 15:51:09 Confirmation # [id number] Dictation # [id number] mn
--- NOTE | 2016-10-27 19:42 | PN ---
DATE: 10/27/2016 PULMONARY PROGRESS NOTE REFERRING PHYSICIAN: Dr. Singh. SUBJECTIVE: She is sitting up in a bed. Night was unremarkable. Pulmonary point of view, feels bet ter. Decreased cough. No more hemoptysis. No nausea, no vomiting, no diarrhea. There is trace leg swelling. OBJECTIVE: GENERAL: No acute distress. VITAL SIGNS: Temperature is 98, heart rate 82, respiratory rate is 18, blood pressure 101/71, pulse ox 98%, was on BiPAP. HEENT: Moist mucous membranes. Crowded airway. NECK: Supple. No JVD. LUNGS: Have a few crackles and expiratory rhonchi. HEART: S1, S2. ABDOMEN: Soft, nontender. No organomegaly. EXTREMITIES: There is trace edema. NEUROLOGIC: Awake, alert, follows simple command. MEDICATIONS: She is on Ambien 5 mg at bedtime p.r.n., Atrovent inhaled q. 4 hours p.r.n., bacitracin ointment to the affected area, Calan 40 mg 3 times a day, amiodarone 200 mg daily, Dilantin 200 mg a t bedtime, also Dilantin 100 mg before breakfast, Diflucan 100 mg daily, doxycycline 100 mg daily, Ec otrin 81 mg daily, folic acid 1 mg daily, heparin 5000 units subQ q. 8 hours, Keppra 500 mg twice a d ay, Lipitor 40 mg daily, cefepime 2 g IV q. 8 hours, Neurontin 300 mg before breakfast, Percocet 5/32 5 one tab q. 6 hours p.r.n., promethazine with codeine q. 4 hours p.r.n., Protonix 40 mg daily, Revat io 20 mg twice a day, Solu-Medrol 40 mg q. 12 hours, Tenormin 12.5 mg twice a day, Tessalon Perles 10 0 mg 3 times a day, Tylenol on a p.r.n. basis, Xopenex q. 4 hours p.r.n. LABORATORY DATA: Shows hemoglobin 10.6, hematocrit 32.9, WBC 10.8, platelet count is 298. Sodium 13 8, potassium 5.0, chloride 104, bicarbonate 29, BUN 20, creatinine 0.9, glucose 92, calcium 8.6. AST 31, ALT 47, alkaline phosphatase is 132, albumin is . Procalcitonin 0.10. IMPRESSION AND PLAN: Respiratory failure requiring noninvasive ventilation, severe pulmonary hyperte nsion, severe obstructive lung disease, unresectable lung cancer requiring radiation therapy on chemo therapy, aspiration pneumonia, paroxysmal atrial fibrillation, ADL dysfunction. Pulmonary point of v iew, she is doing okay. I will continue noninvasive ventilation, especially at night and p.r.n. duri ng the daytime. Decrease Solu-Medrol to 20 mg q. 12 hours. Antibiotics as per infectious diseases. Gastric prophylaxis, deep venous thrombosis prophylaxis. Continue therapy. Thank you and will follow with you. Serenity Martinez MD cc: [id number] TT: 10/27/2016 19:42:27 Confirmation # [id number] Dictation # [id number] mn
[2016-10-28] MEDS: Levalbuterol 1.25 MG/3 ML Inhal Soln UD IH SCH ×7 (00:30→23:55)
[2016-10-28] MEDS: Ipratropium 0.02% Inhal Soln (0.5 mg/2.5 ml) UD IH SCH ×7 (00:30→23:55)
[2016-10-28] MEDS: Promethazine/Cod 6.25mg-10mg/5ml Syr UD PO PRN ×2 (03:44→21:42)
[2016-10-28] MEDS: Cefepime IV 2 gm in NS 2 GM/100 ML BAG IVPB SCH (05:29)
[2016-10-28] MEDS: Pantoprazole 40 mg EC Tab PO SCH (05:30)
[2016-10-28] MEDS: MethylPREDNISolone 40 mg Vial IVP SCH ×2 (05:34→18:26)
[2016-10-28] MEDS: Bacitracin Ointment 30 GM TUBE TOP SCH (10:54)
[2016-10-28] MEDS: Sildenafil 20 MG TAB PO SCH ×2 (10:59→18:00)
--- NOTE | 2016-10-28 12:59 | PN ---
DATE: 10/28/2016 SUBJECTIVE: The patient is in bed, seen earlier in 321. The patient is in bed in no acute distress, nontoxic, no fevers and chills. PHYSICAL EXAMINATION: VITAL SIGNS: Temperature is 97, blood pressure is 106/50, respiratory rate of 20. HEENT: Unremarkable. NECK: Supple. LUNGS: Have decreased breath sounds. HEART: Normal S1, S2. ABDOMEN: Soft, nontender. LABORATORY DATA: White count of 10,000, hemoglobin of 10 and platelets of 298. BUN of 20, creatinin e of 0.9. ASSESSMENT AND PLAN: A 61-year-old female with stage III non-small cell lung cancer status post chem otherapy, chronic congestive obstructive lung disease, atrial fibrillation, peripheral vascular disea se status post femoral stenting, benign brain tumor status post removal in 2013, history of seizure d isorder, pulmonary hypertension, coronary artery disease, admitted with acute hypoxic respiratory clarisa lure and sepsis due to a right lower lobe healthcare-associated pneumonia, non-small cell lung cancer status post chemotherapy and chronic obstructive lung disease, atrial fibrillation, peripheral vascu lar disease, on day #7 of cefepime, Zithromax and Zyvox and today is day #7 of now cefepime and doxyc ycline which was changed to cefepime and doxycycline, would discontinue the antibiotics after today's dose, day #7 of doxycycline and cefepime. The patient's procalcitonin yesterday was 0.10. We will discontinue the cefepime, would discontinue both antibiotics by the end of today. Delvis Tinsley MD cc: [id number] TT: 10/28/2016 12:58:09 Confirmation # [id number] Dictation # [id number] cn
--- NOTE | 2016-10-28 13:06 | PN ---
DATE: 10/28/2016 REASON FOR CONSULTATION AND FOLLOWUP: Cardiac evaluation, history of coronary artery disease, SVT. 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 Admitted with shortness of breath. Now, the patient is in [facility] care unit for the continuity of care. Denies any chest pain, shortness of breath, any palp itation. PHYSICAL EXAMINATION: VITAL SIGNS: Temperature afebrile, heart rate 81, blood pressure 101/71. HEENT: PERRLA. Extraocular muscles intact. NECK: Supple. No carotid bruits. No thyromegaly. CHEST: Clear to auscultation. HEART: S1, S2 regular. ABDOMEN: Soft. EXTREMITIES: Clubbing, cyanosis negative. BLOOD WORKUP: WBC 10.3, hemoglobin 10. , hematocrit 32.9, platelet count 298. Chemistry shows s odium 130, potassium 5, chloride 104, carbon dioxide , anion gap of 10, BUN 20, creatinine 0.9. IMPRESSION: Supraventricular tachycardia, severe chronic obstructive pulmonary disease, inoperable l flash cancer, mitral regurgitation, tricuspid regurgitation, status post percutaneous transluminal stevo nary angioplasty of right coronary artery with bare metal stents, peripheral arterial disease, sensit ashish to Dobutrex supraventricular tachycardia. RECOMMENDATION: Continue verapamil, continue amiodarone, continue phenytoin. Decrease the dose of a miodarone mg daily. Will add gentle diuretics. The patient is on steroids and complaining of increased leg swelling, probably retention of the fluid. Will follow with you. Thank you, Dr. Singh/Dr. Longoria, for providing us the opportunity in taking care of the patient. __ ___ for pulmonary hypertension. Continue atenolol 12.5 mg. We will follow with you. Serenity Maguire MD cc: [id number] TT: 10/28/2016 13:06:04 Confirmation # [id number] Dictation # [id number] en
--- NOTE | 2016-10-28 16:00 | PN ---
DATE: 10/28/2016 This is a 61-year-old -[place] who is followed up by Dr. Singh in our office for lung [facility]. She was hospitalized recently due to arrhythmia and sepsis with bilateral pneumonia. She had sl ight respiratory failure and has underlying COPD with annoying, persistent, productive cough. She al so has anemia of chronic disease and is presently in transitional care unit recuperating from the acu te side admission, improving somewhat, but with some deconditioning after recent bouts of chemotherap y and today is not feeling as well as yesterday as she sent away the physical therapist during our ea rlier rounds. She is seen at bedside as she had been seen during this past 3 days during the long [facility] coverage for Dr. Singh. She is seen in conjunction with Dr. Martinez, Dr. Gomez, who follow s her cancer and Dr. Maguire, who oversees her cardiac status. Again, she was transferred here after re spiratory failure, requiring noninvasive ventilation with BiPAP on the acute side, again identified w ith severe pulmonary hypertension, unresectable lung cancer, so far requiring radiation therapy and o n chemotherapy. She has bouts of paroxysmal atrial fibrillation that have been ongoing over the past year and is encouraged with the recent use of diuretics to help her leg swelling go down. This was noted yesterday; however, we were not as impressed with the lower extremity swelling as we noted her thighs. Seems to be doing better this morning except for perhaps a downtime on her depression. She has some improvement with her cough and for this admission, there has been no more hemoptysis. PHYSICAL EXAMINATION: Today after she was seen by Dr. Maguire and Dr. Tinsley and case discussed wit h Dr. Maguire: VITAL SIGNS: For today are as follow: Pulse rate of 86, a blood pressure 106/56. She is afebrile, respiratory rate of 18 and using BiPAP. GENERAL: Alert and oriented to all spheres as yesterday. Her affect is clear, but somewhat down thi s morning as she is slowly accepting her limitations. SKIN: Turgor is adequate. HEENT: No oral mucosal lesions, no thrush. NECK: No cervical lymphadenopathy. No bruit. HEART: Irregularly irregular at times, but this morning appears to be more rhythmic and regular. LUNGS: Have diminished breath sounds at both bases. No wheeze, no extraordinary bronchovesicular so unds. ABDOMEN: Soft, bowel sounds are present. She is not having any diarrhea and is comfortable and has no other major complaints. EXTREMITIES: Have no edema. She noted some yesterday. We did not. We were not as impressed with t he lower extremities as we were with her thighs. She continues with her daily physical therapy when she is up to it and hopefully, will participate better in the latter part of the day. No labs ordered this morning. IMPRESSION: 1. Deconditioning post respiratory failure, on BiPAP. 2. Pulmonary hypertension. 3. Chronic obstructive pulmonary disease with an unresectable lung cancer. 4. Arrhythmia, atrial fibrillation, resolved rapid ventricular rate. PLAN OF CARE: Continue supportive and physical therapy and prepare for eventual discharge. No other recommendations noted from Dr. Gomez. Dr. Maguire noted the hypokalemia and is replacing her potassi um. We are not certain of the loss of her diuretic that would cause continued hypokalemia. Verapami l was continued, amiodarone was adjusted. Because of a seizure propensity, she continues on Dilantin . The diuretics may be responsible for her complaints of swelling. The atenolol is now down to 12.[address] Tinsley's recommendations also noted. She is on day 7 of cefepime and Zithromax and Zyvox and plan to discontinue antibiotics today. Continue her physical therapy. Kit Longoria MD cc: 73 TT: 10/28/2016 15:59:32 Confirmation # [id number] Dictation # [id number] en
--- NOTE | 2016-10-28 17:01 | PN ---
DATE: 10/28/2016 This is the patient's hospital visit on the TCU. For Dr. Gomez. SUBJECTIVE: The patient is a 61-year-old female seen sitting up in a chair, oxygen on, reporting olesya t she feels better, having participating with reconditioning protocols on TCU. She is still respirat ory compromised with oxygen on and is status post transfusion with good effect. We will repeat her l abs in the morning. Otherwise, she is without complaint. She is known to suffer from stage IIIB non small cell CA of lung with mediastinal involvement. PHYSICAL EXAMINATION: VITAL SIGNS: Temperature 97.5, pulse 87, respirations 20, blood pressure 106/56, pulse ox of 98%. HEENT: Unremarkable. Oxygen is on. NECK: Supple. HEART: Regular rate, occasional ectopic beat. LUNGS: Faint crackles at the bases. ABDOMEN: Obese, soft, and nontender. EXTREMITIES: Faint +1 edema. NEUROLOGIC: Awake, alert, and oriented x 3. SKIN: Otherwise, warm, dry and clear except for her abdomen which is showing ecchymotic changes seco ndary to injections of subcutaneous heparin, which we will change to q. 12 hours versus q. 8 hours. The patient is also on aspirin once a day. LABORATORY DATA: The patient's labs were done yesterday and will be repeated tomorrow. ASSESSMENT: For this patient is that of deconditioning, stage IIIB nonsmall cell carcinoma of the seferino ng with mediastinal involvement, history of atrial fibrillation, seizure disorder, femoral stenting, peripheral vascular disease, pulmonary hypertension, chronic obstructive pulmonary disease, congestiv e cardiomyopathy, status post metal stenting, hypoxemia, anemia of chronic disease, history of surger y for brain tumor 2013, right lobe pneumonia. PLAN: For this patient is to continue present medical regimen with labs to be checked in the morning . Aaron Valadez MD cc: [id number] TT: 10/28/2016 17:00:50 Confirmation # [id number] Dictation # [id number] mn
--- NOTE | 2016-10-28 23:33 | PN ---
DATE: 10/28/2016 REFERRING PHYSICIAN: Dr. Keith. SUBJECTIVE: She is sitting up in a chair. Night was unremarkable. Tolerated noninvasive ventilatio n well. Doing therapy and desaturates around , but recovers in 5 minutes or so. Cough is sumit r. Shortness of breath is better. No nausea, no vomiting, no diarrhea. Has trace leg swelling. OBJECTIVE: GENERAL: In no acute distress. VITAL SIGNS: Temp is 98, heart rate is 78, respiratory rate is 20, blood pressure 108/66. HEENT: Moist mucous membranes. Crowded airway. NECK: Supple. No JVD. LUNGS: Have a few crackles at the bases, prolonged expiratory phase. HEART: S1 and S2. ABDOMEN: Soft, nontender. No organomegaly. EXTREMITIES: She has trace edema. NEUROLOGIC: Awake, alert, follows simple command. MEDICATIONS: She is on Ambien 5 mg at bedtime, Atrovent 0.5 mg q. 4 hours, bacitracin ointment to th e affected area, verapamil 40 mg 3 times a day, amiodarone 200 mg daily, Dilantin 200 mg at bedtime, also Dilantin 100 mg , doxycycline 100 mg twice a day, Ecotrin 81 mg daily, folic acid 1 mg izzy y, heparin 5000 units subQ q. 12 hours, Keppra 500 mg twice a day, Lasix 40 mg daily started today, L ipitor 40 mg daily, Neurontin 300 mg at bedtime and Neurontin 300 mg , Phenergan with codeine q. 4 hours p.r.n., Protonix 40 mg daily, Revatio 20 mg twice a day, Solu-Medrol 20 mg twice a day, Teno rmin 12.5 mg twice a day, Tessalon Perles 3 times a day, Tylenol on a p.r.n. basis, Xopenex on a p.r. n. basis. LABORATORY DATA: Shows no new lab is available since yesterday. IMPRESSION AND PLAN: Respiratory failure requiring noninvasive ventilation, severe pulmonary hyperte nsion, severe obstructive lung disease, unresectable lung cancer, has been on chemotherapy, status po st radiation therapy, aspiration pneumonia, paroxysmal atrial fibrillation, activities of daily livin g dysfunction. She still is desaturating during therapy. Will suggest continuing therapy as long as she is asymptomatic or below 75. May take frequent rests and let her recover through the ther apy. Continue IV and inhaled bronchodilator. Gastric prophylaxis. DVT prophylaxis. Continue with noninvasive ventilation. Thank you and will follow with you. Serenity Martinez MD cc: [id number] TT: 10/28/2016 23:33:11 Confirmation # [id number] Dictation # [id number] mn
[2016-10-29] MEDS: Ipratropium 0.02% Inhal Soln (0.5 mg/2.5 ml) UD IH SCH ×6 (04:06→23:43)
[2016-10-29] MEDS: Levalbuterol 1.25 MG/3 ML Inhal Soln UD IH SCH ×6 (04:08→23:43)
[2016-10-29] MEDS: Promethazine/Cod 6.25mg-10mg/5ml Syr UD PO PRN ×2 (05:09→22:24)
[2016-10-29] MEDS: MethylPREDNISolone 40 mg Vial IVP SCH ×2 (05:24→17:20)
[2016-10-29] MEDS: Pantoprazole 40 mg EC Tab PO SCH (05:42)
[2016-10-29 05:59] LABS: MEAN CELL VOLUME 92.8 fL (80.0-105.0); MEAN CORPUSCULAR HEMOGLOBIN 29.6 pg (25.0-35.0); MEAN CORPUSCULAR HGB CONC 31.9 g/dl (31.0-37.0); MEAN PLATELET VOLUME 9.6 fl (7.0-11.0); PLATELET COUNT 263 10^3/uL (120.0-450.0); WHITE BLOOD COUNT 8.9 10^3/ul (4.5-11.0)
[2016-10-29 06:07] LABS: ALB/GLOB RATIO 1.3 (1.1-1.8); ALKALINE PHOSPHATASE 123 U/L (38-133); ALT/SGPT 49 U/L (7-56); AST/SGOT 35 U/L (15-39); BILIRUBIN,TOTAL 0.2 mg/dL (0.2-1.3); BLOOD UREA NITROGEN 20 mg/dL (7-21); CALCIUM 9.4 mg/dL (8.4-10.5); CARBON DIOXIDE 35 mmol/L (21-33); CHLORIDE 100 mmol/L (95-110); GFR AFRICAN-AMERICAN > 60; GLUCOSE,RANDOM 98 mg/dL (70-110); POTASSIUM 4.3 mmol/L (3.6-5.0); SODIUM 139 mmol/L (132-148)
[2016-10-29 06:18] LABS: ADD MANUAL DIFF? YES
[2016-10-29 06:40] LABS: BAND 3 % (0-2); NEUTROPHIL 80 % (50.0-70.0)
[2016-10-29 06:41] LABS: MYELOCYTE 2 %
[2016-10-29 06:42] LABS: ANISOCYTOSIS 1+
--- NOTE | 2016-10-29 08:25 | PN ---
DATE: 10/26/2016 REASON FOR CONSULTATION AND FOLLOWUP: Coronary artery disease, lung carcinoma, exacerbation of chron ic obstructive pulmonary disease. BRIEF CLINICAL HISTORY: This is a 61-year-old female with a past medical history significant for SVT , coronary artery disease status post RCA bare metal stent in 07/15/2016 admitted with COPD exacerbati on. Now ____ continuity of care. Denies any chest pain, shortness of breath, any palpitation. PHYSICAL EXAMINATION: VITAL SIGNS: Temperature afebrile, heart rate 84, blood pressure 101/55. HEENT: PERRLA. Extraocular muscles intact. NECK: Supple. No carotid bruit. No thyromegaly. CHEST: Clear to auscultation. HEART: S1, S2, regular. ABDOMEN: Soft. EXTREMITIES: Clubbing, cyanosis negative. LABORATORY DATA: Blood workup as follows 9.5 hemoglobin ____ 9.9, hematocrit 31.2, platelet count 28 0. Chemistry shows sodium 130, potassium 4.6, chloride ____ gap of 10, BUN 23, creatinine 1.0. IMPRESSION: Acute exacerbation of chronic obstructive pulmonary disease, lung carcinoma inoperable, history of peripheral arterial disease, history of coronary artery disease status post bare metal bhavesh nt in right coronary artery in 07/2016. RECOMMENDATIONS: Plavix was discontinued because of more than 3 months. Continue baby aspirin for t he rest of the life. Continue verapamil. Continue amiodarone decreased to 200 mg daily to prevent p ulmonary toxicity from amiodarone high dose. Will continue ____. We will follow with you. Continue aggressive treatment of COPD. Thank you Dr. Keith for providing the opportunity in taking care of the patient. Will foll ow with you. [facility] status stable. Serenity Maguire MD cc: [id number] TT: 10/26/2016 18:38:54 Confirmation # [id number] Dictation # [id number] dio
--- NOTE | 2016-10-29 09:48 | PN ---
DATE: 10/29/2016 The patient is recovering in transitional care unit. She is doing better. Her cough improved. The patient is less short of breath. She is tolerating physical therapy. She complains of some increased looser stools the last couple of days. PHYSICAL EXAMINATION: VITAL SIGNS: Stable. She is afebrile. Temperature 97.6, pulse 75 regular, blood pressure 108/71, respiratory rate 20. Her oxygen saturation is 98%. GENERAL: The patient is comfortable in bed, alert, awake, oriented. HEENT: Head is normocephalic, atraumatic. Oral mucosa is moist. NECK: Supple. LUNGS: With decreased breath sounds and crackles in the bases. HEART: Regular rhythm. ABDOMEN: Soft, nontender, nondistended. EXTREMITIES: With no edema. DIAGNOSTIC TESTS: CBC is stable with hemoglobin 10.2. Chemistry with normal electrolytes, normal renal function. Her procalcitonin is negative. ASSESSMENT: 1. History of sepsis with bilateral pneumonia. 2. Exacerbation of chronic obstructive lung disease, clinically improved. 3. Severe pulmonary hypertension with dilated cardiomyopathy. 4. Anemia of chronic disease. 5. Nonresectable left lower lung cancer. PLAN OF TREATMENT: Continue physical therapy. The patient will be maintained on Solu-Medrol nebulizer and encouraged increase of activity. We will maintain her on doxycycline, as per ID. We will check stool for C. diff. Keira Keith MD cc: [id number] TT: 10/29/2016 09:47:17 Confirmation # [id number] Dictation # [id number] jn MTDMarissa
[2016-10-29] MEDS: Bacitracin Ointment 30 GM TUBE TOP SCH (11:13)
[2016-10-29] MEDS: Sildenafil 20 MG TAB PO SCH ×2 (11:23→17:20)
--- NOTE | 2016-10-29 12:50 | PN ---
DATE: 10/29/2016 REASON FOR CONSULTATION AND FOLLOWUP: Cardiac evaluation, history of coronary artery disease, SVT. BRIEF CLINICAL HISTORY: This is a 61-year-old female with past medical history significant for COPD, mitral regurgitation, tricuspid regurgitation, coronary artery disease, status post PTCA with bare m etal stent, admitted with exacerbation of COPD. Chest pain ____ secondary to musculoskeletal, now andres hairston is in the TCU for transitional care, for the continuity of care. PHYSICAL EXAMINATION: VITAL SIGNS: Temperature afebrile, heart rate 75, blood pressure 105/71. HEENT: PERRLA. Extraocular muscles intact. NECK: Supple. No carotid bruits. No thyromegaly. CHEST: Clear to auscultation. HEART: S1, S2 regular. ABDOMEN: Soft. EXTREMITIES: Clubbing and cyanosis negative. LABORATORY DATA: Blood workup as follows: WBC 8.9, hemoglobin 10.8, hematocrit 32.0, platelet count 263. Chemistry shows sodium ____, potassium 4.3, chloride ____, carbon dioxide 75, anion gap of 8, BUN 20, creatinine 1.0. IMPRESSION: Acute exacerbation of chronic obstructive pulmonary disease, supraventricular tachycardi a, history of peripheral arterial disease, coronary artery disease, status post percutaneous translum inal coronary angioplasty with a bare metal stent in right coronary artery more than 3 months periphe ral arterial disease, status post percutaneous transluminal coronary angioplasty of right superficial femoral artery. RECOMMENDATION: Continue aspirin. Plavix discontinued because more than 3 months. Continue to aggre ssively treat ____ COPD. Continue amiodarone 200 mg daily. Continue verapamil 40 mg daily, continue ____ continue DVT prophylaxis. CVS status is stable. We will follow with you. Thank you, Dr. Longoria, for providing us the opportunity in taking care of the patient. Serenity Maguire MD cc: [id number] TT: 10/29/2016 12:49:50 Confirmation # [id number] Dictation # [id number] stephanie
[2016-10-30] MEDS: Ipratropium 0.02% Inhal Soln (0.5 mg/2.5 ml) UD IH SCH ×5 (04:12→20:00)
[2016-10-30] MEDS: Levalbuterol 1.25 MG/3 ML Inhal Soln UD IH SCH ×5 (04:13→20:00)
--- NOTE | 2016-10-30 04:46 | PN ---
DATE: 10/29/2016 REFERRING PHYSICIAN: Dr. Keith SUBJECTIVE: The patient is sitting side of the bed, has nasal cannula oxygen. Did not use noninvasi ve ventilation during the daytime. Did well in therapy; desaturated down to 85, but quickly recovere d with rest. Cough is improved. No hemoptysis. No nausea, vomiting, diarrhea. Still having leg sw elling. OBJECTIVE: GENERAL: No acute distress. VITAL SIGNS: Temperature is 98, heart rate is 75, respiratory rate is 20, blood pressure is 99/60, p ulse ox 100% on nasal cannula. HEENT: Moist mucous membrane. Crowded airway. NECK: Supple. No JVD. LUNGS: Have decreased breath sounds at bases. No rhonchi today. HEART: S1, S2. ABDOMEN: Soft, nontender. No organomegaly. EXTREMITIES: Have edema. NEUROLOGIC: Awake, alert, follows simple commands. MEDICATIONS: She is on Ambien 5 mg at bedtime p.r.n., Atrovent 0.5 mg q. 4 hours, bacitracin ointmen t to affected area, Calan 40 mg 3 times a day, amiodarone 200 mg daily, Dilantin 200 mg at bedtime, a lso Dilantin 100 mg before breakfast, Ecotrin 81 mg daily, doxycycline 100 mg twice a day, folic acid 1 mg daily, heparin 5000 units subQ q. 12 hours, Keppra 500 mg twice a day, Lasix 40 mg daily, Lipit or 40 mg daily, Neurontin 600 mg at bedtime, also Neurontin 300 mg before breakfast, promethazine wit h codeine q. 4 hours p.r.n., Protonix 40 mg daily, Revatio 20 mg twice a day, Solu-Medrol 20 mg twice a day, Tenormin 12.5 mg twice a day, Tessalon Perles 100 mg 3 times a day, Tylenol p.r.n., Xopenex i nhaled q. 4 hours. LABORATORY DATA: Shows hemoglobin 10.2, hematocrit 32.0, WBC 8.9, platelet is 263. Sodium 139, pota ssium 4.3, chloride 100, bicarbonate 35, BUN 20, creatinine 1.0, glucose is 98, calcium is 9.4, AST 3 5, ALT 49, alk phos is 123, albumin 3.4. Procalcitonin 0.10. IMPRESSION AND PLAN: Respiratory failure requiring noninvasive ventilation; pulmonary hypertension; severe obstructive lung disease; unresectable lung cancer, status post chemotherapy and radiation the rapy; aspiration pneumonia; paroxysmal atrial fibrillation; activities of daily living dysfunction. Overall doing well. May discontinue Solu-Medrol. Place on prednisone 20 mg daily. Continue Revatio , diuretics, gastric prophylaxis, deep venous thrombosis prophylaxis, inspiratory BiPAP use at night. Continue therapy. Thank you and we will follow with you. Serenity Martinez MD cc: [phone] TT: 10/30/2016 04:46:08 Confirmation # [id number] Dictation # [id number] dn
[2016-10-30] MEDS: Pantoprazole 40 mg EC Tab PO SCH (05:55)
[2016-10-30 06:20] LABS: HEMATOCRIT 34.6 % (36.0-48.0); MEAN CORPUSCULAR HEMOGLOBIN 29.9 pg (25.0-35.0); MEAN CORPUSCULAR HGB CONC 31.8 g/dl (31.0-37.0); MEAN PLATELET VOLUME 9.8 fl (7.0-11.0); RED CELL DISTRIBUTION WIDTH 18.5 % (11.5-14.5); WHITE BLOOD COUNT 11.1 10^3/ul (4.5-11.0)
[2016-10-30 06:29] LABS: ALB/GLOB RATIO 1.3 (1.1-1.8); ALKALINE PHOSPHATASE 122 U/L (38-133); ALT/SGPT 52 U/L (7-56); AST/SGOT 36 U/L (15-39); BILIRUBIN,TOTAL 0.3 mg/dL (0.2-1.3); BLOOD UREA NITROGEN 20 mg/dL (7-21); CALCIUM 9.6 mg/dL (8.4-10.5); CARBON DIOXIDE 36 mmol/L (21-33); CHLORIDE 99 mmol/L (98-107); GFR AFRICAN-AMERICAN > 60; GLUCOSE,RANDOM 92 mg/dL (70-110); POTASSIUM 4.3 mmol/L (3.6-5.0); SODIUM 141 mmol/L (132-148); TOTAL PROTEIN 6.3 g/dL (5.8-8.3)
[2016-10-30] MEDS: Sildenafil 20 MG TAB PO SCH ×2 (11:00→17:36)
[2016-10-30] MEDS: Bacitracin Ointment 30 GM TUBE TOP SCH (11:00)
--- NOTE | 2016-10-30 12:48 | PN ---
DATE: 10/30/2016 The patient is in room 321, bed 1. REASON FOR CONSULTATION AND FOLLOWUP: Coronary artery disease, SVT HISTORY OF PRESENT ILLNESS: A 61-year-old female with past medical history significant for COPD, roseann ral regurgitation, tricuspid regurgitation, coronary artery disease, status post PTCA with bare metal stent, admitted with exacerbation of COPD and musculoskeletal chest pain. Now, the patient is in ansitional care unit for deconditioning and physical therapy. The patient denies any cardiac symptom s at present. PHYSICAL EXAMINATION: VITAL SIGNS: Blood pressure 107/59, respirations 16, pulse 88, temperature 98.7. HEAD: Normocephalic. EYES: Pupils normal. Conjunctivae slightly pale. NECK: JVP low. Carotid equal. THORAX: AP diameter normal. LUNGS: No significant rales. CARDIOVASCULAR: S1, S2. ABDOMEN: Soft, no tenderness, no organomegaly. Bowel sounds normal. EXTREMITIES: No clubbing, no cyanosis. LABORATORY DATA: WBC 11.1, hemoglobin 11.0, hematocrit 34.6, platelets 268. Sodium 141, potassium 4 .3, BUN 20, creatinine 0.9, calcium 9.6, glucose ____. AST, ALT normal. Total protein and albumin n ormal. DIAGNOSES: Acute exacerbation of chronic obstructive pulmonary disease, supraventricular tachycardia , history of peripheral vascular disease, coronary artery disease, status post coronary angioplasty w ith bare metal stent in right coronary artery more than 3 months ago, status post percutaneous transl uminal angioplasty of the superficial femoral artery. PLAN: To continue physical therapy. The patient is on verapamil 40 mg t.i.d., amiodarone 200 mg p.o . daily, Dilantin 200 mg p.o. at bedtime and 100 mg p.o. PCB, Doryx 100 mg p.o. q. 12 hours, aspirin 81 mg daily, folic acid 1 mg daily, heparin 5000 units subQ b.i.d., Keppra 500 mg p.o. b.i.d., Lasix 40 mg daily, Lipitor 40 mg daily, Neurontin 300 mg p.o. PCB and 600 mg p.o. at bedtime, prednisone 20 mg daily, Revatio 20 mg p.o. b.i.d., atenolol 12.5 mg b.i.d., Xopenex hand nebulizer therapy. Will continue present therapy and physical therapy. We will follow with you. Serenity Cartwright MD cc: [id number] TT: 10/30/2016 12:48:03 Confirmation # [id number] Dictation # [id number] tn
--- NOTE | 2016-10-30 16:28 | PN ---
DATE: 10/30/2016 REFERRING PHYSICIAN: Dr. Singh. SUBJECTIVE: She is out of bed to chair. Doing well in therapy. Night was unremarkable. Tolerated BiPAP well. Mild cough. Decreased shortness of breath. No nausea, no vomiting, no diarrhea. Decre ased leg swelling. OBJECTIVE: GENERAL: No acute distress. VITAL SIGNS: Temp is 98, heart rate is 88, respiratory rate is 16, blood pressure 107/59, pulse ox 9 3% on nasal cannula. HEENT: Moist mucous membrane. No ulcer or thrush noted. NECK: Supple. No JVD. LUNGS: Have better airflow with a few crackles at the bases. HEART: S1, S2. ABDOMEN: Soft, nontender. No organomegaly. EXTREMITIES: Decreased edema. NEUROLOGIC: Awake, alert, follows simple command. MEDICATIONS: She is on Ambien 5 mg at bedtime p.r.n., Atrovent 0.5 mg q. 4 hours p.r.n., bacitracin ointment to the affected area, Calan 40 mg 3 times a day, amiodarone 200 mg daily, Dilantin 200 mg at bedtime, also Dilantin 100 mg PCB, doxycycline 100 mg twice a day, Ecotrin 81 mg daily, folic acid 1 mg daily, heparin 5000 units subQ q. 12 hours, Keppra 500 mg twice a day, Lasix 40 mg daily, Lipitor 40 mg daily, gabapentin 300 mg PCB, Phenergan with codeine 5 mL q. 4 hours p.r.n., prednisone 20 mg daily, Protonix 40 mg daily, Revatio 20 mg twice a day, Tenormin 12.5 mg twice a day, Tessalon Perles 100 mg 3 times a day, Tylenol p.r.n., Xopenex p.r.n. basis. LABORATORY DATA: Shows hemoglobin 11.0, hematocrit 34.6, WBC 11.1, platelet is 268. Sodium 141, pot assium 4.3, chloride 99, bicarbonate 36, BUN 20, creatinine 0.9, glucose 92, calcium is 9.6. AST 36, ALT 52, alk phos is 122. IMPRESSION AND PLAN: Respiratory failure requiring noninvasive ventilation, at present on BiPAP at n ight time, has pulmonary hypertension, severe obstructive lung disease; unresectable lung cancer, sta tus post chemotherapy, been on radiation therapy; aspiration pneumonia, paroxysmal atrial fibrillatio n, activities of daily living dysfunction. Pulmonary point of view, slowly she is improving. Will c ontinue pulmonary vasodilator. Continue beta parrish and amiodarone. Continue p.o. and inhaled bron chodilator. Gastric prophylaxis. SCD to lower extremity. May continue to supplement oxygen. Francisco Javier nue therapy. Fall precaution. Thank you, and will follow with you. Serenity Martinez MD cc: [phone] TT: 10/30/2016 16:27:00 Confirmation # [id number] Dictation # [id number] mn
--- NOTE | 2016-10-30 19:35 | CP.PCM.PN ---
Subjective - Date & Time of Evaluation Date of Evaluation: 10/30/16 Time of Evaluation: 11:30 - Subjective Subjective: Comfortable, afebrile, not in distress. Objective - Vital Signs/Intake and Output Vital Signs (last 24 hours): Temp Pulse Resp BP Pulse Ox 97.6 F 75 20 108/71 98 10/29/16 06:00 10/29/16 06:00 10/27/16 06:00 10/29/16 06:00 10/27/16 06:00 Intake and Output: 10/29/16 10/29/16 06:59 18:59 Intake Total 420 Balance 420 - Medications Medications: Current Medications Acetaminophen (Tylenol 325mg Tab) 650 mg PO Q4H PRN; Protocol PRN Reason: Headache Amiodarone HCl (Cordarone) 200 mg PO DAILY DANICA PRN Reason: Protocol Last Admin: 10/28/16 10:56 Dose: 200 mg Aspirin (Ecotrin) 81 mg PO DAILY DANICA PRN Reason: Protocol Last Admin: 10/28/16 10:57 Dose: 81 mg Atenolol (Tenormin) 12.5 mg PO BID DANICA PRN Reason: Protocol Last Admin: 10/28/16 18:00 Dose: 12.5 mg Atorvastatin Calcium (Lipitor) 40 mg PO DIN DANICA PRN Reason: Protocol Last Admin: 10/28/16 18:00 Dose: 40 mg Bacitracin (Bacitracin) 0 gm TOP DAILY DANICA Last Admin: 10/28/16 10:54 Dose: 1 oin Benzonatate (Tessalon Perles) 100 mg PO TID DANICA PRN Reason: Protocol Last Admin: 10/28/16 18:00 Dose: 100 mg Doxycycline Hyclate (Doryx) 100 mg PO Q12 DANICA PRN Reason: Protocol Stop: 11/01/16 10:01 Last Admin: 10/28/16 21:44 Dose: 100 mg Folic Acid (Folic Acid) 1 mg PO DAILY DANICA PRN Reason: Protocol Last Admin: 10/28/16 10:58 Dose: 1 mg Furosemide (Lasix) 40 mg PO DAILY DANICA Last Admin: 10/28/16 17:55 Dose: 40 mg Gabapentin (Neurontin) 300 mg PO PCB DANICA PRN Reason: Protocol Last Admin: 10/29/16 09:09 Dose: 300 mg Gabapentin (Neurontin) 600 mg PO HS DANICA PRN Reason: Protocol Last Admin: 10/28/16 21:44 Dose: 600 mg Heparin Sodium (Porcine) (Heparin) 5,000 units SC Q12 DANICA PRN Reason: Protocol Last Admin: 10/28/16 22:22 Dose: 5,000 units Ipratropium Natalia (Atrovent) 0.5 mg IH [id number] DANICA PRN Reason: Protocol Last Admin: 10/29/16 09:05 Dose: 0.5 mg Levalbuterol HCl (Xopenex) 1.25 mg IH [id number] DANICA PRN Reason: Protocol Last Admin: 10/29/16 09:06 Dose: 1.25 mg Levetiracetam (Keppra) 500 mg PO BID DANICA PRN Reason: Protocol Last Admin: 10/28/16 17:57 Dose: 500 mg Methylprednisolone (Solu-Medrol) 20 mg IVP 0600,1800 DANICA PRN Reason: Protocol Last Admin: 10/29/16 05:24 Dose: 20 mg Pantoprazole Sodium (Protonix Ec Tab) 40 mg PO 0630 DANICA PRN Reason: Protocol Last Admin: 10/29/16 05:42 Dose: 40 mg Phenytoin Sodium (Dilantin) 200 mg PO HS DANICA PRN Reason: Protocol Last Admin: 10/28/16 21:43 Dose: 200 mg Phenytoin Sodium (Dilantin) 100 mg PO PCB DANICA PRN Reason: Protocol Last Admin: 10/29/16 09:09 Dose: 100 mg Promethazine HCl/Codeine (Phenergan/Codeine Oral Syrup) 5 ml PO Q4H PRN; Protocol PRN Reason: Cough and congestion Last Admin: 10/29/16 05:09 Dose: 5 ml Sildenafil Citrate (Revatio) 20 mg PO BID DANICA PRN Reason: Protocol Last Admin: 10/28/16 18:00 Dose: 20 mg Verapamil HCl (Calan Tab) 40 mg PO TID DANICA PRN Reason: Protocol Last Admin: 10/28/16 17:58 Dose: 40 mg Zolpidem Tartrate (Ambien) 5 mg PO HS PRN; Protocol PRN Reason: Insomnia Last Admin: 10/28/16 23:48 Dose: 5 mg - Labs Labs: 10/29/16 05:30 10/29/16 05:30 - Constitutional Appears: Non-toxic, No Acute Distress - Head Exam Head Exam: NORMAL INSPECTION - Neck Exam Neck Exam: absent: Lymphadenopathy, Meningismus - Respiratory Exam Respiratory Exam: Decreased Breath Sounds - Cardiovascular Exam Cardiovascular Exam: +S1, +S2 - GI/Abdominal Exam GI & Abdominal Exam: Soft. absent: Tenderness Assessment and Plan - Assessment and Plan (Free Text) Plan: Assessment Acute hypoxic respiratory failure with sepsis due to right lower lobe healthcare -associated pneumonia, clinically improved and S/P treatment stage3 IIIB non-small cell lung cancer S/P chemotherapy COPD atrial fibrillation peripheral vascular disease S/P femoral stenting benign brain tumor S/P removal in 2013 seizure disorder pulmonary HTN CAD S/P PCI chronic CHF obesity with BMI 33 Plan completed 7 days of Cefepime, Zithromax and Zyvox Will continue to monitor off antibiotics since she is at risk for nosocomial infections
--- NOTE | 2016-10-30 20:17 | PN ---
DATE: 10/30/[address] Gomez. SUBJECTIVE: The patient is a 61-year-old female, seen lying awake in bed, reporting that she feels m odestly improved on a daily basis participating with TCU protocols. She has stage IIIB nonsmall-cell CA of the lung with continuous oxygen, status post transfusion with good effect. PHYSICAL EXAMINATION: VITAL SIGNS: Temperature 98.3, pulse 97, respirations 14, blood pressure 98/74, pulse ox 84%; that w ill be repeated. HEENT: Unremarkable. Oxygen is on. NECK: Supple. HEART: Tachy rate, regular rhythm. LUNGS: Rare rales at the bases. ABDOMEN: Soft, obese, nontender. EXTREMITIES: No edema. SKIN: Warm, dry and clear. NEUROLOGIC: Awake and alert. LABORATORY DATA: Showed a white blood cell count of 11.1, hemoglobin 11.0 after transfusion earlier in her hospital stay; hematocrit 34.6, platelet count of 268,000 with a chem metabolic panel complete ly within normal range except for a carbon dioxide of 36. ASSESSMENT: Deconditioning, stage IIIB nonsmall-cell carcinoma of the lung with mediastinal involvem ent, history of atrial fibrillation, seizure disorder, femoral stenting, peripheral vascular disease, pulmonary hypertension, chronic obstructive pulmonary disease, congestive cardiomyopathy, status pos t metal stenting, anemia of chronic disease, hypoxemia, history of surgery for brain tumor in 2013, r ight lower lobe pneumonia. PLAN: For this patient is to continue present medical regimen with reconditioning as per Dr. Dee Nichole with followup with Dr. Gomez in the office when she is discharged. Aaron Valadez MD cc: [phone] TT: 10/30/2016 20:16:10 Confirmation # [id number] Dictation # [id number] mn
[2016-10-30] MEDS: Promethazine/Cod 6.25mg-10mg/5ml Syr UD PO PRN (23:00)
[2016-10-31] MEDS: Ipratropium 0.02% Inhal Soln (0.5 mg/2.5 ml) UD IH SCH ×7 (00:11→23:15)
[2016-10-31] MEDS: Levalbuterol 1.25 MG/3 ML Inhal Soln UD IH SCH ×7 (00:11→23:15)
[2016-10-31] MEDS: Pantoprazole 40 mg EC Tab PO SCH (05:47)
[2016-10-31 07:13] LABS: ALB/GLOB RATIO 1.1 (1.1-1.8); ALKALINE PHOSPHATASE 114 U/L (38-133); ALT/SGPT 56 U/L (7-56); AST/SGOT 33 U/L (15-39); BILIRUBIN,TOTAL 0.3 mg/dL (0.2-1.3); BLOOD UREA NITROGEN 18 mg/dL (7-21); CALCIUM 7.7 mg/dL (8.4-10.5); CARBON DIOXIDE 35 mmol/L (21-33); CHLORIDE 98 mmol/L (98-107); GFR AFRICAN-AMERICAN > 60; GLUCOSE,RANDOM 80 mg/dL (70-110); POTASSIUM 4.3 mmol/L (3.6-5.0); SODIUM 138 mmol/L (132-148); TOTAL PROTEIN 5.8 g/dL (5.8-8.3)
[2016-10-31 08:44] LABS: MEAN CELL VOLUME 96.3 fL (80.0-105.0); MEAN CORPUSCULAR HEMOGLOBIN 29.7 pg (25.0-35.0); MEAN CORPUSCULAR HGB CONC 30.9 g/dl (31.0-37.0); MEAN PLATELET VOLUME 10.8 fl (7.0-11.0); RED CELL DISTRIBUTION WIDTH 19.3 % (11.5-14.5); WHITE BLOOD COUNT 10.2 10^3/ul (4.5-11.0)
[2016-10-31] MEDS: Bacitracin Ointment 30 GM TUBE TOP SCH (09:59)
[2016-10-31] MEDS: Sildenafil 20 MG TAB PO SCH ×2 (10:01→17:56)
--- NOTE | 2016-10-31 10:06 | PN ---
DATE: 10/31/2016 SUBJECTIVE: The patient is doing well. She denies any shortness of breath, chest pain. She has good appetite. Physical therapy is in progress. PHYSICAL EXAMINATION: VITAL SIGNS: Stable with temperature 97.3, pulse 80 regular, blood pressure 98/ 74, respiratory rate 18, oxygen saturation 93%. GENERAL: The patient is comfortable in a reclining chair. Alert, awake, oriented. HEENT: Head is normocephalic, atraumatic. Oral mucosa is moist. NECK: Supple. LUNGS: With decreased breath sounds. No rales or crackles. HEART: Regular rhythm and rate. ABDOMEN: Soft, nontender, nondistended. EXTREMITIES: With no edema. DIAGNOSTIC TESTS: Stable. CBC with hemoglobin 10.5. Her WBC is 10.2. Chemistry is normal. ASSESSMENT: 1. History of sepsis with bilateral pneumonia. 2. Exacerbation of chronic obstructive lung disease, stable. 3. Pulmonary hypertension. 4. Anemia of chronic disease. 5. Left lobar lung cancer. PLAN OF TREATMENT: We will discontinue Lasix due to patient's low blood pressure. Continue all the rest of her medications. Continue physical therapy , weaning off prednisone dose. Keira Keith MD cc: [phone] TT: 10/31/2016 10:05:41 Confirmation # [id number] Dictation # [id number] stephanie ALVARADO
--- NOTE | 2016-10-31 12:23 | PN ---
DATE: 10/31/2016 The patient is in room 321, bed 1. REASON FOR CONSULTATION AND FOLLOWUP: Coronary artery disease, SVT, exacerbation of COPD. 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 The patient was stabilized on medical floor. Now, she is on transitional care unit for physical therapy and improvement in deconditioning. The patient is sit ting in chair without any cardiac symptoms. PHYSICAL EXAMINATION: VITAL SIGNS: Blood pressure 93/60, respirations 16, pulse ____, temperature 98.3. HEAD: Normocephalic. EYES: Pupils are normal. Conjunctivae are slightly pale. NECK: JVP low. Carotids equal. THORAX: AP diameter normal. LUNGS: No significant rales. CARDIOVASCULAR: S1, S2. ABDOMEN: Soft, nontender. No organomegaly. Bowel sounds normal. EXTREMITIES: No clubbing, no cyanosis. LABORATORY DATA: Shows WBC 10.2, hemoglobin 10.5, hematocrit 34.0, platelets 204. Sodium 138, potas sium 4.3. BUN 18, creatinine 0.8. Random glucose 80. AST and ALT normal. Total protein and albumi n normal. DIAGNOSES: Status post bilateral pneumonia, exacerbation of chronic obstructive pulmonary disease, p ulmonary hypertension, carcinoma of the lung with mediastinal involvement, seizure disorder, supraven tricular tachycardia, history of peripheral vascular disease, coronary artery disease, status post an gioplasty and insertion of a bare metal stent in the right coronary artery, right superficial femoral artery, anemia, deconditioning. PLAN: The patient is getting verapamil 40 mg p.o. t.i.d., amiodarone 200 mg daily, Dilantin 200 mg a t bedtime and 100 mg a.c.b., Doryx 100 mg q. 12 hours, aspirin 81 mg daily, folic acid 1 mg daily, he sherri 5000 units subQ b.i.d., Keppra 500 mg b.i.d., Lipitor 40 mg b.i.d., Revatio 20 mg p.o. b.i.d., atenolol 12.5 mg b.i.d. for control of the heart rate. We will continue present therapy and continue physical therapy. We will follow with you. Serenity Cartwright MD cc: [id number] TT: 10/31/2016 12:22:50 Confirmation # [id number] Dictation # [id number] jn
--- NOTE | 2016-10-31 18:18 | CP.PCM.PN ---
Subjective - Date & Time of Evaluation Date of Evaluation: 10/31/16 Time of Evaluation: 10:45 - Subjective Subjective: Comfortable, afebrile, improved cough and breathing. Appetite is good, no nausea. Objective - Vital Signs/Intake and Output Vital Signs (last 24 hours): Temp Pulse Resp BP Pulse Ox 98.6 F 98 H 14 94/60 L 98 10/31/16 16:00 10/31/16 17:57 10/31/16 16:00 10/31/16 17:57 10/31/16 16:00 Intake and Output: 10/31/16 10/31/16 06:59 18:59 Intake Total 420 Balance 420 - Medications Medications: Current Medications Acetaminophen (Tylenol 325mg Tab) 650 mg PO Q4H PRN; Protocol PRN Reason: Headache Amiodarone HCl (Cordarone) 200 mg PO 0800 DANICA PRN Reason: Protocol Last Admin: 10/31/16 08:26 Dose: Not Given Aspirin (Ecotrin) 81 mg PO 0800 DANICA PRN Reason: Protocol Last Admin: 10/31/16 08:27 Dose: 81 mg Atenolol (Tenormin) 12.5 mg PO BID DANICA PRN Reason: Protocol Last Admin: 10/31/16 17:55 Dose: Not Given Atorvastatin Calcium (Lipitor) 40 mg PO DIN DANICA PRN Reason: Protocol Last Admin: 10/31/16 17:56 Dose: 40 mg Bacitracin (Bacitracin) 0 gm TOP DAILY [facility] Last Admin: 10/31/16 09:59 Dose: 1 dose Benzonatate (Tessalon Perles) 100 mg PO TID DANICA PRN Reason: Protocol Last Admin: 10/31/16 17:55 Dose: 100 mg Doxycycline Hyclate (Doryx) 100 mg PO Q12 DANICA PRN Reason: Protocol Stop: 11/01/16 10:01 Last Admin: 10/31/16 10:02 Dose: 100 mg Folic Acid (Folic Acid) 1 mg PO DAILY DANICA PRN Reason: Protocol Last Admin: 10/31/16 10:01 Dose: 1 mg Gabapentin (Neurontin) 300 mg PO PCB DANICA PRN Reason: Protocol Last Admin: 10/31/16 09:59 Dose: 300 mg Gabapentin (Neurontin) 600 mg PO HS DANICA PRN Reason: Protocol Last Admin: 10/30/16 21:41 Dose: 600 mg Heparin Sodium (Porcine) (Heparin) 5,000 units SC 0600,1800 DANICA PRN Reason: Protocol Last Admin: 10/31/16 17:53 Dose: 5,000 units Ipratropium Sharon (Atrovent) 0.5 mg IH [id number] DANICA PRN Reason: Protocol Last Admin: 10/31/16 15:48 Dose: 0.5 mg Levalbuterol HCl (Xopenex) 1.25 mg IH [id number] DANICA PRN Reason: Protocol Last Admin: 10/31/16 15:48 Dose: 1.25 mg Levetiracetam (Keppra) 500 mg PO BID DANICA PRN Reason: Protocol Last Admin: 10/31/16 17:53 Dose: 500 mg Pantoprazole Sodium (Protonix Ec Tab) 40 mg PO 0630 DANICA PRN Reason: Protocol Last Admin: 10/31/16 05:47 Dose: 40 mg Phenytoin Sodium (Dilantin) 200 mg PO HS DANICA PRN Reason: Protocol Last Admin: 10/30/16 21:40 Dose: 200 mg Phenytoin Sodium (Dilantin) 100 mg PO PCB DANICA PRN Reason: Protocol Last Admin: 10/31/16 09:55 Dose: 100 mg Prednisone (Prednisone Tab) 20 mg PO DAILY DANICA Last Admin: 10/31/16 10:01 Dose: 20 mg Promethazine HCl/Codeine (Phenergan/Codeine Oral Syrup) 5 ml PO Q4H PRN; Protocol PRN Reason: Cough and congestion Last Admin: 10/30/16 23:00 Dose: 5 ml Sildenafil Citrate (Revatio) 20 mg PO BID DANICA PRN Reason: Protocol Last Admin: 10/31/16 17:56 Dose: 20 mg Verapamil HCl (Calan Tab) 40 mg PO TID DANICA PRN Reason: Protocol Last Admin: 10/31/16 17:57 Dose: 40 mg Zolpidem Tartrate (Ambien) 5 mg PO HS PRN; Protocol PRN Reason: Insomnia Last Admin: 10/28/16 23:48 Dose: 5 mg - Labs Labs: 10/31/16 06:44 10/31/16 06:44 - Constitutional Appears: Non-toxic, No Acute Distress - Head Exam Head Exam: NORMAL INSPECTION - ENT Exam ENT Exam: Mucous Membranes Moist - Neck Exam Neck Exam: absent: Lymphadenopathy, Meningismus - Respiratory Exam Respiratory Exam: Decreased Breath Sounds - Cardiovascular Exam Cardiovascular Exam: +S1, +S2 - GI/Abdominal Exam GI & Abdominal Exam: Soft. absent: Tenderness Assessment and Plan - Assessment and Plan (Free Text) Plan: Assessment Acute hypoxic respiratory failure with sepsis due to right lower lobe healthcare -associated pneumonia, clinically improved and S/P treatment stage3 IIIB non-small cell lung cancer S/P chemotherapy COPD atrial fibrillation peripheral vascular disease S/P femoral stenting benign brain tumor S/P removal in 2013 seizure disorder pulmonary HTN CAD S/P PCI chronic CHF obesity with BMI 33 Plan completed 7 days of Cefepime, Zithromax and Zyvox Will continue to monitor off antibiotics since she is at risk for healthcare- associated infections
--- NOTE | 2016-10-31 23:33 | PN ---
DATE: 10/31/2016 LOCATION: TCU For Dr. Gomez. SUBJECTIVE: The patient is a 61-year-old female seen sitting up in bed, participating with [facility] for reconditioning, admitted for pneumonia and stage III nonsmall cell cancer of the lung with t he patient now anticipating discharge home tomorrow. She is in no acute distress. OBJECTIVE: PHYSICAL EXAMINATION: VITAL SIGNS: Temperature 98.6, pulse 84, respirations 14, blood pressure 96/60, pulse ox 98%. HEENT: Unremarkable except for oxygen on. NECK: Supple. HEART: Regular rate. LUNGS: Scattered rhonchi. ABDOMEN: Obese, soft, and nontender. EXTREMITIES: No edema. SKIN: Warm, dry and clear. NEUROLOGIC: Awake, alert, and oriented x 3. LABORATORY DATA: The patient's labs were done. White blood cell count of 10.2, hemoglobin 10.5, hem atocrit 34.0, platelet count of 204,000 with a chem metabolic panel showing a normal chem metabolic p david with a calcium 7.7. ASSESSMENT: Deconditioning stage IIIB nonsmall cell cancer of the lung with mediastinal involvement, history of atrial fibrillation, seizure disorder, chronic obstructive pulmonary disease, chronic con gestive cardiomyopathy, anemia of chronic disease, right lower lobe pneumonia. PLAN: Continue present medical regimen with followup as an outpatient with Dr. Gomez in the office in approximately 1 week's time for continuation of treatment as indicated. Aaron Valadez MD cc: [phone] TT: 10/31/2016 23:32:48 Confirmation # [id number] Dictation # [id number] mn
[2016-11-01] MEDS: Levalbuterol 1.25 MG/3 ML Inhal Soln UD IH SCH ×3 (03:30→11:14)
[2016-11-01] MEDS: Ipratropium 0.02% Inhal Soln (0.5 mg/2.5 ml) UD IH SCH ×3 (03:30→11:14)
[2016-11-01] MEDS: Pantoprazole 40 mg EC Tab PO SCH (05:54)
[2016-11-01] MEDS: Promethazine/Cod 6.25mg-10mg/5ml Syr UD PO PRN (05:59)
--- NOTE | 2016-11-01 08:26 | PN ---
DATE: 10/31/2016 REFERRING PHYSICIAN: Dr. Keith. SUBJECTIVE: She is lying in the bed, head at 45 degrees, noninvasive ventilation. Overall doing wel l. Done well in therapy. Still has a cough. No hemoptysis. No nausea, vomiting, or diarrhea. Dec reased leg swelling. OBJECTIVE: GENERAL: In no acute distress. VITAL SIGNS: Temperature is 98, heart rate 98, respiratory rate is 14, blood pressure 94/60, pulse o x % on noninvasive ventilation. HEENT: Moist mucous membranes. Crowded airway. NECK: Supple. No JVD. LUNGS: Has fair airflow with scattered rhonchi. HEART: S1 and S2. ABDOMEN: Soft, nontender. No organomegaly. EXTREMITIES: There is trace edema. NEUROLOGIC: Awake, alert, follows simple command. HOME MEDICATIONS: She is on Ambien 5 mg at bedtime p.r.n., Atrovent 0.5 mg q. 4 hours, bacitracin oi ntment to affected areas, Calan 40 mg 3 times a day, amiodarone 200 mg daily, Dilantin 200 mg at bedt jorje, also Dilantin 100 mg , doxycycline 100 mg twice a day, Ecotrin 81 mg daily, folic acid 1 mg daily, heparin 5000 units subQ q. 12 hours, Keppra 500 mg twice a day, Lipitor 40 mg daily, gabapent in 600 mg at bedtime, Neurontin 300 mg , promethazine q. 4 hours p.r.n., prednisone 20 mg daily, Protonix 40 mg daily, Revatio 20 mg twice daily, Tenormin 12.5 mg twice a day, Tessalon Perle s 100 mg 3 times a day, Tylenol p.r.n. basis, Xopenex 1.25 mg q. 4 hours p.r.n. LABORATORY DATA: Shows hemoglobin 10.5, hematocrit 32.0, WBC 10.2, platelet is . Sodium 138, p otassium 4.3, chloride , bicarbonate 38, BUN 18, creatinine 0.8, glucose 80, calcium is 7.7, AST 33, ALT 56, alkaline phosphorus 114, albumin is 3.0. IMPRESSION AND PLAN: Respiratory failure requiring noninvasive ventilation BiPAP; pulmonary hy pertension; severe obstructive lung disease; unresectable lung cancer, status post chemotherapy radiation therapy; aspiration pneumonia; paroxysmal atrial fibrillation; activities of daily living dysfunction. Pulmonary point of view, continue p.o. and inhaled bronchodilator, on antibiotics, BiPA P while sleeping and p.r.n., pulmonary vasodilator, gastric prophylaxis, anti-seizure medication, chayito p vein thrombosis prophylaxis. Continue therapy. Thank you, and we will follow with you. Serenity Martinez MD cc: [phone] TT: 11/01/2016 00:01:06 Confirmation # [id number] Dictation # [id number] tn
[2016-11-01] MEDS: Bacitracin Ointment 30 GM TUBE TOP SCH (10:30)
[2016-11-01] MEDS: Sildenafil 20 MG TAB PO SCH (10:34)
[2016-11-01 10:41] VITALS: PULSE 120
[2016-11-01 11:15] VITALS: BP 109/69; RESP 20; TEMP 97.6; O2SAT 93
--- NOTE | 2016-11-01 11:25 | PN ---
DATE: 11/01/2016 REFERRING PHYSICIAN: Dr. Singh SUBJECTIVE: She is out of bed to chair, nasal cannula oxygen. Discharge planning in progress. Nigh t was unremarkable, used BiPAP well. Still has some cough. No hemoptysis, no nausea, no vomiting, n o diarrhea. Decreased leg swelling. OBJECTIVE: GENERAL: No acute distress. VITAL SIGNS: Temp is 98, heart rate is 97, respiratory rate is 20, blood pressure 115/77, pulse ox i s 98% off nasal cannula. HEENT: Moist mucous membrane. Crowded airway. Mallampati score is 4. NECK: Supple. No JVD. LUNGS: Has decreased breath sounds at the bases with scattered rhonchi. HEART: S1, S2. ABDOMEN: Soft, nontender. No organomegaly. EXTREMITIES: Trace edema. NEUROLOGIC: Awake, alert, follows simple command. MEDICATIONS: She is on Ambien 5 mg at bedtime p.r.n. Atrovent 0.5 mg q. 4 hours, bacitracin ointment to affected area, Calan 40 mg 3 times a day, amiodarone 200 mg daily, Dilantin 200 mg at bedtime, al so Dilantin 100 mg after breakfast, Ecotrin 81 mg daily, folic acid 1 mg daily, heparin 5000 units lora bQ q. 12 hours, Keppra 500 mg twice a day, Lipitor 40 mg daily, Neurontin 600 mg at bedtime, also Mikael rontin 300 mg after breakfast, promethazine with codeine q. 4 hours p.r.n., prednisone 20 mg daily, P rotonix 40 mg daily, Revatio 20 mg twice a day, Tenormin 12.5 mg twice a day, Tessalon Perles 100 mg 3 times a day, Tylenol p.r.n. basis, Xopenex q. 4 hours. LABORATORY DATA: Reviewed. No new lab is available since yesterday. IMPRESSION AND PLAN: Respiratory failure requiring noninvasive ventilation, pulmonary hypertension, severe obstructive lung disease, unresectable lung cancer, been on chemoradiation therapy, aspiration pneumonia, paroxysmal atrial fibrillation, activity of daily living dysfunction. Pulmonary point of view, she is doing okay. May go home with prednisone 20 mg taper off to 5 mg daily next 10 days or so. Continue inhaled bronchodilator. Continue BiPAP at home. Gastric prophylaxis, deep venous thro mbosis prophylaxis. Continue pulmonary vasodilators. Thank you and we will follow with you. Serenity Martinez MD cc: [id number] TT: 11/01/2016 11:25:03 Confirmation # [id number] Dictation # [id number] en
--- NOTE | 2016-11-01 11:50 | DS ---
DIAGNOSES: 1. Chronic obstructive lung disease with exacerbation. 2. History of sepsis with bilateral pneumonia. 3. Pulmonary hypertension. 4. Nonresectable small left lower lung carcinoma. 5. Anemia of chronic disease. HISTORY: The patient is a 61-year-old female with history of COPD, pulmonary hypertension, left lower lobe cancer, currently undergoing chemotherapy who was admitted to transitional care unit for deconditioning after treatment for respiratory failure, sepsis with bilateral pneumonia and exacerbation of COPD. The patient is feeling well this morning. She denies any shortness of breath, chest pain. She continues with chronic productive cough. PHYSICAL EXAMINATION ON DISCHARGE: VITAL SIGNS: Stable. Temperature 98.6, pulse 97 regular, blood pressure 115/77 , respiratory rate 20. Her oxygen saturation is 98% with 2 liters of nasal cannula. GENERAL: The patient is comfortable in bed, alert, awake, oriented. HEENT: Head is normocephalic, atraumatic. Oral mucosa is moist. NECK: Supple. LUNGS: With decreased breath sounds and some crackles in the bases bilaterally. No wheezing or rhonchi. HEART: Regular rhythm and rate. ABDOMEN: Soft, nontender, nondistended. EXTREMITIES: With no edema. HOSPITALIZATION COURSE: The patient's condition remained stable. The patient underwent physical therapy. Her diagnostic tests showed hemoglobin is 10.5 on discharge. Hematocrit 34 and platelet count 204. Her chemistry showed normal electrolytes. Her renal function is normal with BUN 18 and creatinine 0.8. Her liver enzymes were normal. PLAN OF TREATMENT: The patient is discharged home in stable condition. We will continue heart healthy diet. The patient will be maintained on her chronic medications: Amiodarone 200 mg daily, Cardizem CD 180 mg daily, atenolol 12.5 mg twice a day, omeprazole 20 mg daily, sildenafil 20 mg twice a day, gabapentin 600 mg at night, budesonide 0.5 mg twice a day through nebulizer , Brovana 1 vial twice a day through nebulizer, aspirin 81 mg daily, Dilantin 100 mg in the morning and 200 mg at night and Keppra 500 mg twice a day. The patient was advised to follow up with primary care doctor next week on and also to call appointment with oncologist office for followup next week. Keira Keith MD cc: [phone] TT: 11/01/2016 11:50:16 jn MTDD
--- NOTE | 2016-11-01 13:07 | PN ---
DATE: 11/01/2016 The patient is in room 321, bed 1. REASON FOR CONSULTATION: Coronary artery disease, SVT, exacerbation of COPD. 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 The patient was sta bilized on medical floor, then she was transferred to transitional care unit for deconditioning and p hysical therapy. The patient is asymptomatic from cardiac point of view at present. PHYSICAL EXAMINATION: VITAL SIGNS: Blood pressure is 109/69, respirations 20, pulse 120, temperature 97.6. HEAD: Normocephalic. EYES: Pupils normal. Conjunctivae are slightly pale. NECK: JVP low. Carotids equal. THORAX: AP diameter normal. LUNGS: No rales. CARDIOVASCULAR: S1, S2. ABDOMEN: Soft, nontender, no organomegaly. Bowel sounds normal. EXTREMITIES: No clubbing, no cyanosis. LABORATORY DATA: WBC 10.2, hemoglobin 10.5, hematocrit 34.0, platelets 204. Sodium 138, potassium 4 .3, BUN 18, creatinine 0.8, glucose 80, calcium 7.7. Total protein and albumin normal. AST, ALT nor mal. DIAGNOSES: Exacerbation of chronic obstructive pulmonary disease, bilateral pneumonia, carcinoma of the lung with mediastinal involvement, hypertension, seizure disorder, supraventricular tachycardia, history of peripheral vascular disease, coronary artery disease, status post angioplasty, insertion o f a bare metal stent in the right coronary artery, anemia and deconditioning. PLAN: The patient is on amiodarone 200 mg p.o. daily, Neurontin 200 mg at bedtime and 100 mg ACD, Do ryx 100 mg q. 12 hours, verapamil 40 mg p.o. t.i.d., aspirin 81 mg daily, folic acid 1 mg daily, hepa rin 5000 units subQ b.i.d., Keppra 500 b.i.d., Lipitor 40 daily, Revatio 20 mg p.o. b.i.d., atenolol 12.5 mg b.i.d. for control of heart rate. The patient can continue the same medication. Nunu CD 180 p.o. daily verapamil 40 t.i.d. Serenity Cartwright MD cc: [id number] TT: 11/01/2016 13:07:05 Confirmation # [id number] Dictation # [id number] rn
--- NOTE | 2016-11-01 16:19 | CP.PCM.PN ---
Subjective - Date & Time of Evaluation Date of Evaluation: 11/01/16 Time of Evaluation: 10:10 - Subjective Subjective: Comfortable, afebrile, not in distress. Objective - Vital Signs/Intake and Output Vital Signs (last 24 hours): Temp Pulse Resp BP Pulse Ox 98.6 F 84 14 94/60 L 98 10/31/16 16:00 10/31/16 21:30 10/31/16 16:00 10/31/16 17:57 10/31/16 16:00 - Medications Medications: Current Medications Acetaminophen (Tylenol 325mg Tab) 650 mg PO Q4H PRN; Protocol PRN Reason: Headache Amiodarone HCl (Cordarone) 200 mg PO 0800 DANICA PRN Reason: Protocol Last Admin: 10/31/16 08:26 Dose: Not Given Aspirin (Ecotrin) 81 mg PO 0800 DANICA PRN Reason: Protocol Last Admin: 10/31/16 08:27 Dose: 81 mg Atenolol (Tenormin) 12.5 mg PO BID DANICA PRN Reason: Protocol Last Admin: 10/31/16 17:55 Dose: Not Given Atorvastatin Calcium (Lipitor) 40 mg PO DIN DANICA PRN Reason: Protocol Last Admin: 10/31/16 17:56 Dose: 40 mg Bacitracin (Bacitracin) [address] [facility] Last Admin: 10/31/16 09:59 Dose: 1 dose Benzonatate (Tessalon Perles) 100 mg PO TID DANICA PRN Reason: Protocol Last Admin: 10/31/16 17:55 Dose: 100 mg Doxycycline Hyclate (Doryx) 100 mg PO Q12 DANICA PRN Reason: Protocol Stop: 11/01/16 10:01 Last Admin: 10/31/16 21:12 Dose: 100 mg Folic Acid (Folic Acid) 1 mg PO DAILY DANICA PRN Reason: Protocol Last Admin: 10/31/16 10:01 Dose: 1 mg Gabapentin (Neurontin) 300 mg PO PCB DANICA PRN Reason: Protocol Last Admin: 10/31/16 09:59 Dose: 300 mg Gabapentin (Neurontin) 600 mg PO HS DANICA PRN Reason: Protocol Last Admin: 10/31/16 21:12 Dose: 600 mg Heparin Sodium (Porcine) (Heparin) 5,000 units SC 0600,1800 DANICA PRN Reason: Protocol Last Admin: 11/01/16 05:55 Dose: 5,000 units Ipratropium Wilson (Atrovent) 0.5 mg IH [id number] DANICA PRN Reason: Protocol Last Admin: 11/01/16 07:48 Dose: 0.5 mg Levalbuterol HCl (Xopenex) 1.25 mg IH [id number] DANICA PRN Reason: Protocol Last Admin: 11/01/16 07:47 Dose: 1.25 mg Levetiracetam (Keppra) 500 mg PO BID DANICA PRN Reason: Protocol Last Admin: 10/31/16 17:53 Dose: 500 mg Pantoprazole Sodium (Protonix Ec Tab) 40 mg PO 0630 DANICA PRN Reason: Protocol Last Admin: 11/01/16 05:54 Dose: 40 mg Phenytoin Sodium (Dilantin) 200 mg PO HS DANICA PRN Reason: Protocol Last Admin: 10/31/16 21:12 Dose: 200 mg Phenytoin Sodium (Dilantin) 100 mg PO PCB DANICA PRN Reason: Protocol Last Admin: 10/31/16 09:55 Dose: 100 mg Prednisone (Prednisone Tab) [address] [facility] Last Admin: 10/31/16 10:01 Dose: 20 mg Promethazine HCl/Codeine (Phenergan/Codeine Oral Syrup) 5 ml PO Q4H PRN; Protocol PRN Reason: Cough and congestion Last Admin: 11/01/16 05:59 Dose: 5 ml Sildenafil Citrate (Revatio) 20 mg PO BID DANICA PRN Reason: Protocol Last Admin: 10/31/16 17:56 Dose: 20 mg Verapamil HCl (Calan Tab) 40 mg PO TID DANICA PRN Reason: Protocol Last Admin: 10/31/16 17:57 Dose: 40 mg Zolpidem Tartrate (Ambien) 5 mg PO HS PRN; Protocol PRN Reason: Insomnia Last Admin: 10/28/16 23:48 Dose: 5 mg - Labs Labs: 10/31/16 06:44 10/31/16 06:44 - Constitutional Appears: Non-toxic, No Acute Distress - Head Exam Head Exam: NORMAL INSPECTION - ENT Exam ENT Exam: Mucous Membranes Moist - Neck Exam Neck Exam: absent: Lymphadenopathy, Meningismus - Respiratory Exam Respiratory Exam: Decreased Breath Sounds - Cardiovascular Exam Cardiovascular Exam: +S1, +S2 - GI/Abdominal Exam GI & Abdominal Exam: Soft. absent: Tenderness Assessment and Plan - Assessment and Plan (Free Text) Plan: Assessment Acute hypoxic respiratory failure with sepsis due to right lower lobe healthcare -associated pneumonia, clinically improved and S/P treatment stage3 IIIB non-small cell lung cancer S/P chemotherapy COPD atrial fibrillation peripheral vascular disease S/P femoral stenting benign brain tumor S/P removal in 2013 seizure disorder pulmonary HTN CAD S/P PCI chronic CHF obesity with BMI 33 Plan completed 7 days of Cefepime, Zithromax and Zyvox Will continue to monitor off antibiotics while the patient is in the hospital since she is at risk for hospital-acquired infections
--- NOTE | 2016-11-02 07:38 | PN ---
DATE: 11/01/2016 The patient is in 321, [facility] bed 1. PROBLEMS: This is a 61-year-old -[place] female with a history of locally advanced stage III nonsmall cell carcinoma of the lung involving the left lung, status post chemoradiation, currently o n maintenance Alimta, also has history significant for coronary artery disease with right coronary ar sebastien stent, also has chronic atrial fibrillation, pulmonary hypertension, obstructive lung disease, w ho was admitted to the hospital with failure to thrive, respiratory infection, decompensation of her chronic obstructive pulmonary disease and activity of daily living dysfunction and the patient has gr adually improved with IV antibiotics, intensive bronchodilator therapy, IV bronchodilators and patien t's condition has improved significantly. She was on the acute side and transferred over to [facility] for rehab and deconditioning. SUBJECTIVE: The patient is out of bed on the chair. She is being discharged today. She is on nasal cannula oxygen. Discharge planning is in progress. The patient still uses the BiPAP at night. She is on O2 at 5 L, still has some cough, occasional right-sided chest pain, no hemoptysis. No nausea, no vomiting, no diarrhea. The patient has decreased leg swelling. PHYSICAL EXAMINATION: VITAL SIGNS: T-max is 98.4, heart rate is 97, respirations 20, blood pressure is 115/77, pulse ox is 98% oxygen nasal cannula. HEENT: Head is normocephalic, atraumatic. Conjunctivae pale. Examination of the oropharynx reveals no oropharyngeal lesions. NECK: Supple. There is no adenopathy. LUNGS: Reveal decreased breath sounds at the bases with scattered wheezes. HEART: Reveals S1 and S2 to be normal. ABDOMEN: Soft, nontender. EXTREMITIES: Reveal trace edema. NEUROLOGIC: Higher functions are normal. No focal deficits are noted. MEDICATIONS: The patient's medications are reviewed. She is on Ambien 5 at bedtime p.r.n., Atrovent 0.5 mg q. 4 h. She is on bacitracin ointment to affected areas, Calan 40 mg 3 times a day, amiodaro ne 200 mg daily, Dilantin 200 mg at bedtime, also Dilantin 100 mg at breakfast for seizure disorder, Ecotrin 81 mg daily, folic acid 1 mg daily, heparin 5000 units subQ q. 12 hours, Keppra 500 mg twice daily, Lipitor 40 mg daily, Neurontin 600 mg at bedtime, also Neurontin 300 mg after breakfast, prome thazine with codeine q. 4 hours, prednisone 20 mg daily, Protonix 40 daily, Revatio 20 mg twice daily , Tenormin 12.5 mg daily, Tessalon Perles 100 mg 3 times a day, Tylenol p.r.n., Xopenex q. 4 h. ASSESSMENT NOTES AND PLAN: The patient is clinically improved from respiratory dysfunction for which she was in the hospital. As far as her lung cancer is concerned, last PET/CT scan shows no real pro gression of disease. She is on maintenance Alimta given once a month. We will try to make a change in the schedule, decrease the dose or increase the interval between the treatments, not to compromise her comorbid medical issues, including the paroxysmal atrial fibrillation for which she is on the am iodarone and the chronic obstructive pulmonary disease. We will continue to monitor the patient very carefully as an outpatient. We will discuss with both consultants from cardiology and pulmonary poi nt of view and discuss with Dr. Singh before initiating the next cycle of treatment. Routine post exam instructions have been given to the patient. Followup has been given to the patient as well. Michelle Gomez MD cc: [id number] TT: 11/02/2016 07:37:44 Confirmation # [id number] Dictation # [id number] tn
== END 2016-11-01 13:04 | disposition home or self-care (01) | DRG 871 ==
LOC: TRCU 19:00
PROVIDERS: ADMIT Family Medicine; ATTEND Family Medicine
PROC: 3E03328 Introduction of Oxazolidinones into Peripheral Vein, Percutaneous Approach (ICD-10-PCS; 2016-10-24)
PROC: F08Z4ZZ Home Management Treatment (ICD-10-PCS; principal; 2016-10-25)
PROC: F07Z9ZZ Gait Training/Functional Ambulation Treatment (ICD-10-PCS; 2016-10-25)
PROC: 5A09457 Assistance with Respiratory Ventilation, 24-96 Consecutive Hours, Continuous Positive Airway Pressure (ICD-10-PCS; 2016-10-25)
PROC: 3E0F7GC Introduction of Other Therapeutic Substance into Respiratory Tract, Via Natural or Artificial Opening (ICD-10-PCS; 2016-10-25)
DX: A41.9 Sepsis, unspecified organism (principal); J69.0 Pneumonitis due to inhalation of food and vomit; J96.01 Acute respiratory failure with hypoxia; Z79.2 Long term (current) use of antibiotics; I42.0 Dilated cardiomyopathy; C34.90 Malignant neoplasm of unspecified part of unspecified bronchus or lung; I27.2 Other secondary pulmonary hypertension; I50.9 Heart failure, unspecified; I11.0 Hypertensive heart disease with heart failure; J44.1 Chronic obstructive pulmonary disease with (acute) exacerbation; D63.8 Anemia in other chronic diseases classified elsewhere; I47.1 Supraventricular tachycardia; Z99.81 Dependence on supplemental oxygen; I48.0 Paroxysmal atrial fibrillation; G40.909 Epilepsy, unspecified, not intractable, without status epilepticus; I48.2 Chronic atrial fibrillation; I25.10 Atherosclerotic heart disease of native coronary artery without angina pectoris; Y95 Nosocomial condition; G47.30 Sleep apnea, unspecified; I73.9 Peripheral vascular disease, unspecified; E66.9 Obesity, unspecified; I08.1 Rheumatic disorders of both mitral and tricuspid valves; Z68.33 Body mass index [BMI] 33.0-33.9, adult; Z95.5 Presence of coronary angioplasty implant and graft; Z92.3 Personal history of irradiation; Z87.891 Personal history of nicotine dependence

== ENCOUNTER 2016-11-10 14:20 | Inpatient (IN) | payer MEDICARE, MEDICAID ==
[2016-11-10 14:20] VITALS: PULSE 82
[2016-11-10 14:26] VITALS: BMI 29.9
[2016-11-10] MEDS ORDERED: Albuterol-Ipratrop 3 mg / 0.5 (3 ml) UD IH STA (14:31)
--- NOTE | 2016-11-10 14:35 | ED PDOC ---
Arrival/HPI - General Chief Complaint: Shortness Of Breath Time Seen by Provider: 11/10/16 14:21 Historian: Patient, EMS - History of Present Illness Time/Duration: Prior to Arrival Symptom Onset: Gradual Symptom Course: Worsening Severity Level: Moderate Activities at Onset: Rest Associated Symptoms (Text): 11/10/16 14:33 Patient was discharged from transitional care unit yesterday. Complains of worsening shortness of breath all day today. History of lung cancer. She quit smoking 5 months ago. History of COPD. History of coronary artery disease and stent placement several months ago. She has non-resectable lung cancer. Chronic nonproductive cough. No fever. No chest pain. I discussed with her a living will , and she reports she does not want to be on any machines. I ordered a DNR. Past Medical History - Infectious Disease Hx of Infectious Diseases: None - Tetanus Immunization Tetanus Immunization: Unknown - Cardiac Hx Cardiac Disorders: Yes Hx Congestive Heart Failure: Yes Hx Hypertension: Yes - Pulmonary Hx Chronic Obstructive Pulmonary Disease (COPD): Yes - Neurological HX Cerebrovascular Accident: No - HEENT Hx HEENT Disorder: Yes (eyeglasses) Hx Blind: No Hx Cataracts: No Hx Deafness: Yes (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 ear) Hx Epistaxis: No Hx Glaucoma: No Hx Macular Degeneration: No Other/Comment: ringing in ears - Renal Hx Renal Failure: No - Endocrine/Metabolic Hx Diabetes Mellitus Type 1: No Hx Diabetes Mellitus Type 2: No Hx Hypothyroidism: No - Hematological/Oncological Hx Blood Disorders: Yes Hx Anemia: Yes (blood transfusion) Hx Cancer: Yes (lung dx 04/2016) Hx Chemotherapy: Yes (and radiation) Other/Comment: uterine ca over yrs ago - Integumentary Hx Dermatological Disorder: No Hx Basal Cell Carcinoma: No Hx Eczema: No Hx Melanoma: No Hx Psoriasis: No Hx Squamous Cell Carcinoma: No - Musculoskeletal/Rheumatological Hx Falls: No - Gastrointestinal Hx Gastrointestinal Disorders: Yes (reflux/pancreatitis) - Genitourinary/Gynecological Hx Genitourinary Disorders: Yes (cervical,uterine ca) Hx Hematuria: No Hx Incontinence: No Hx Sexually Transmitted Diseases: No Hx Urinary Tract Infection: No Other/Comment: hx fibroids had hyst due to fibroids - Psychiatric Hx Psychophysiologic Disorder: Yes Hx Anxiety: Yes Hx Bipolar Disorder: No Hx Depression: No Hx Emotional Abuse: No Hx Hallucinations: No Hx Panic Disorder: No Hx Post Traumatic Stress Disorder: No Hx Psychosis: No Hx Physical Abuse: No Hx Schizophrenia: No Hx Sexual Abuse: No Hx Substance Use: No - Surgical History Hx Amputation: No Hx Appendectomy: No Hx Cardiac Catheterization: No Hx Cholecystectomy: Yes Hx Coronary Stent: Yes Hx Gastric Bypass Surgery: No Hx Hysterectomy: Yes Hx Joint Replacement: No Hx Kidney Transplant: No Hx Liver Transplant: No Hx Mastectomy: No Hx Musculoskeletal Surgery: No Hx Open Heart Surgery: No Hx Orthopedic Surgery: No Hx Splenectomy: No Hx Valve Replacement: No Other/Comment: polypectomy, r cw pac - Anesthesia Hx Anesthesia Reactions: No Hx Malignant Hyperthermia: No - Suicidal Assessment Feels Threatened In Home Enviroment: No Family/Social History - Physician Review Nursing Documentation Reviewed: Yes Family/Social History: Unknown Family HX Smoking Status: Former Smoker (Quit smoking 5 months ago) Hx Alcohol Use: No Hx Substance Use: No Hx Substance Use Treatment: No Allergies/Home Meds Allergies/Adverse Reactions: Allergies diallo Allergy (Verified 11/10/16 14:26) RASH Home Medications: Home Meds Medication Instructions Recorded Confirmed Gabapentin 600 mg PO HS 06/22/15 11/10/16 Folic Acid 1 mg PO DAILY 09/22/16 11/10/16 Phenytoin Sodium Extended 200 mg PO HS 09/22/16 11/10/16 [id number] CD [Cardizem CD] 180 mg PO DAILY 09/22/16 11/10/16 Atenolol [Tenormin] 12.5 mg PO BID 10/24/16 11/10/16 Omeprazole Magnesium [Prilosec Otc] 20 mg PO DAILY 10/24/16 11/10/16 Aspirin [Adult Low Dose Aspirin EC] 81 mg PO DAILY 11/10/16 11/10/16 Review of Systems - Physician Review All systems were reviewed & negative as marked: Yes - Review of Systems Constitutional: Fatigue. absent: Fevers Respiratory: SOB, Cough, Wheezing. absent: Sputum Cardiovascular: absent: Chest Pain, Palpitations, Syncope Gastrointestinal: absent: Abdominal Pain, Nausea, Vomiting Neurological: absent: Headache, Dizziness Physical Exam Vital Signs Temp Pulse Resp BP Pulse Ox 11/10/16 15:33 100/71 11/10/16 14:28 98.3 F 97 H 19 120/72 90 L Temperature: Afebrile Blood Pressure: Normal Pulse: Regular Respiratory Rate: Tachypneic Appearance: Positive for: Well-Appearing, Non-Toxic, Uncomfortable Pain Distress: None Mental Status: Positive for: Alert and Oriented X 3 - Systems Exam Head: Present: Atraumatic, Normocephalic Pupils: Present: PERRL Extroacular Muscles: Present: EOMI Conjunctiva: Present: Normal Ears: Present: NORMAL TM, Normal Canal. No: Erythema Mouth: Present: Moist Mucous Membranes Pharnyx: No: ERYTHEMA, EXUDATE, TONSILS ENLARGED Neck: Present: Normal Range of Motion. No: MIDLINE TENDERNESS, Paraspinal Tenderness Respiratory/Chest: Present: Respiratory Distress, Accessory Muscle Use, Wheezes , Decreased Breath Sounds, Rales, Retracting, Rhonchi, Tachypneic. No: Tender to Palpation Cardiovascular: Present: Regular Rate and Rhythm, Normal S1, S2. No: Murmurs Abdomen: Present: Normal Bowel Sounds. No: Tenderness, Distention, Peritoneal Signs, Rebound, Guarding Upper Extremity: Present: Normal Inspection. No: Cyanosis, Edema Lower Extremity: Present: Normal Inspection, Edema (Trace bilateral lower extremity edema) Neurological: Present: GCS=15, CN II-XII Intact, Speech Normal, Motor Func Grossly Intact Skin: Present: Warm, Dry, Normal Color. No: Rashes Psychiatric: Present: Alert, Oriented x 3, Normal Insight, Normal Concentration Medical Decision Making ED Course and Treatment: 11/10/16 14:35 EKG shows normal sinus rhythm rate approximately [address] or T-wave changes 11/10/16 15:[address] Longoria who requests consults with pulmonary and cardiology and oncology, who have all been called. He will admit to 's service on telemetry observation. - Lab Interpretations Lab Results: 11/10/16 14:30 11/10/16 14:30 Lab Results 11/10/16 14:30: pCO2 30 L, pO2 47.0 L, HCO3 23.4, ABG pH 7.50 H, ABG Total CO2 24.3, ABG O2 Saturation 88.2 L, ABG O2 Content 12.0 L, ABG Base Excess 0.7, ABG Hemoglobin 10.0 L, ABG Carboxyhemoglobin 2.6 H, POC ABG HHb (Measured) 11.4 H, ABG Methemoglobin 0.6, ABG O2 Capacity 13.6 L, Hgb O2 Saturation 85.5 L, FiO2 32.0 11/10/16 14:30: Sodium 143, Chloride 105, Potassium 3.5 L, Carbon Dioxide 29, Anion Gap 13, BUN 13, Creatinine 1.0, Est GFR ( Amer) > 60, Est GFR (Non- Af Amer) 56, Random Glucose 112 H, Calcium 9.6, Total Bilirubin 0.7, AST 26, ALT 25, Alkaline Phosphatase 116, Lactate Dehydrogenase 695, Total Creatine Kinase 63, Troponin I 0.02 D, NT-Pro-B Natriuret Pep 5600 H, Total Protein 7.2 , Albumin 3.9, Globulin 3.3, Albumin/Globulin Ratio 1.2 11/10/16 14:30: pO2 49, VBG pH 7.41, VBG pCO2 47.0, VBG HCO3 29.8 H, VBG Total CO2 31.2 H, VBG O2 Sat (Calc) 84.9 H, VBG Base Excess 4.3 H, VBG Potassium 3.6, Sodium 143.0, Chloride 109.0 H, Glucose 116 H, Lactate 1.9, FiO2 21.0, Venous Blood Potassium 3.6 11/10/16 14:30: PT 11.7, INR 1.08, APTT 28.0 11/10/16 14:30: WBC 5.4 D, RBC 3.77, Hgb 11.3 L, Hct 35.3 L, MCV 93.6, MCH 30.0 , MCHC 32.0, RDW 18.1 H, Plt Count 246, MPV 9.8, Gran % 74.9 H, Lymph % (Auto) 11.5 L, Linn % (Auto) 12.1 H, Eos % (Auto) 1.3 L, Baso % (Auto) 0.2, Gran # 4.04 , Lymph # 0.6 L, Linn # 0.7 H, Eos # 0.1, Baso # 0.01 - RAD Interpretation Radiology Orders: 11/10/16 14:30 CHEST PORTABLE [RAD] Stat Chest one view shows a right sided line present with bilateral increased markings. No infiltrate or effusion or cardiomegaly. Medical Insurance Clerk: ED Physician - Medication Orders Current Medication Orders: Discontinued Medications Albuterol/Ipratropium (Duoneb 3 Mg/0.5 Mg (3 Ml) Ud) 3 ml IH ONCE STA Stop: 11/10/16 14:32 Last Admin: 11/10/16 14:52 Dose: 3 ml Furosemide (Lasix) 60 mg IVP ONCE ONE Stop: 11/10/16 15:31 Last Admin: 11/10/16 15:33 Dose: 60 mg Methylprednisolone (Solu-Medrol) 125 mg IVP STAT STA Stop: 11/10/16 14:30 Last Admin: 11/10/16 14:51 Dose: 125 mg Disposition/Present on Arrival - Present on Arrival Any Indicators Present on Arrival: No History of DVT/PE: No History of Uncontrolled Diabetes: No Urinary Catheter: No History of Decub. Ulcer: No History Surgical Site Infection Following: None - Disposition Have Diagnosis and Disposition been Completed?: Yes Diagnosis: Lung cancer, COPD (chronic obstructive pulmonary disease), Congestive heart failure (CHF), Hypoxia Disposition: HOSPITALIZED Disposition Time: 15:33 Patient Plan: Observation, Telemetry Patient Problems: Current Active Problems Problem Status Onset COPD (chronic obstructive pulmonary disease) Acute Congestive heart failure (CHF) Acute Hypoxia Acute Lung cancer Chronic Condition: FAIR Discharge Instructions (ExitCare): Heart Failure (ED) Referrals: Keira Keith MD [Primary Care Provider] - Follow up with primary
[2016-11-10 14:40] LABS: ARTERIAL BLOOD GAS HCO3 23.4 mmol/L (21-28); ARTERIAL BLOOD GAS O2 CAPACITY 13.6 mL/dl (16-24); ARTERIAL BLOOD HGB O2 SAT 85.5 % (95.0-98.0); CARBOXYHEMOGLOBIN 2.6 % (0.5-1.5); HHB 11.4 % (0-5); METHEMOGLOBIN 0.6 % (0.0-3.0)
[2016-11-10 14:52] LABS: ADD MANUAL DIFF? NO
[2016-11-10 15:00] LABS: VENOUS BLOOD GAS BASE EXCESS 4.3 mmol/L (0.0-2.0); VENOUS BLOOD PH 7.41 (7.32-7.43)
[2016-11-10 15:01] LABS: BASO # 0.01 K/mm3 (0.0-2.0); BASO % 0.2 % (0.0-3.0); EOS # 0.1 (0.0-0.7); EOS % 1.3 % (1.5-5.0); GRAN # 4.04 (1.4-6.5); GRAN % 74.9 % (50.0-68.0); HEMATOCRIT 35.3 % (36.0-48.0); LYMPH # 0.6 (1.2-3.4); LYMPH % 11.5 % (22.0-35.0); MEAN CELL VOLUME 93.6 fL (80.0-105.0); MEAN PLATELET VOLUME 9.8 fl (7.0-11.0); MONO # 0.7 (0.1-0.6); MONO % 12.1 % (1.0-6.0); PLATELET COUNT 246 10^3/uL (120.0-450.0); RED CELL DISTRIBUTION WIDTH 18.1 % (11.5-14.5); WHITE BLOOD COUNT 5.4 10^3/ul (4.5-11.0)
[2016-11-10 15:05] LABS: ALB/GLOB RATIO 1.2 (1.1-1.8); ALKALINE PHOSPHATASE 116 U/L (38-133); ALT/SGPT 25 U/L (7-56); AST/SGOT 26 U/L (15-39); BILIRUBIN,TOTAL 0.7 mg/dL (0.2-1.3); BLOOD UREA NITROGEN 13 mg/dL (7-21); CALCIUM 9.6 mg/dL (8.4-10.5); CARBON DIOXIDE 29 mmol/L (21-33); CHLORIDE 105 mmol/L (98-107); GFR AFRICAN-AMERICAN > 60; GLUCOSE,RANDOM 112 mg/dL (70-110); POTASSIUM 3.5 mmol/L (3.6-5.0); SODIUM 143 mmol/L (132-148); TOTAL PROTEIN 7.2 g/dL (5.8-8.3)
[2016-11-10 15:14] LABS: INR 1.08 (0.93-1.08)
[2016-11-10 15:16] LABS: TROPONIN I 0.02 ng/mL
--- NOTE | 2016-11-10 15:16 | RAD ---
HISTORY: Shortness of breath. COMPARISON: 10/24/2016. FINDINGS: LUNGS: Pulmonary vascular congestion and progressive findings compared to the prior study. PLEURA: No significant pleural effusion identified, no pneumothorax apparent. CARDIOVASCULAR: No significant interval change compared to the prior examination(s). OSSEOUS STRUCTURES: No significant abnormalities. VISUALIZED UPPER ABDOMEN: Normal. OTHER FINDINGS: Venous access catheter in stable, satisfactory position. IMPRESSION: Progressive pulmonary vascular congestion. No discrete pulmonary infiltrates. No preliminary interpretation rendered by the emergency department physician
[2016-11-10] MEDS ORDERED: Potassium Chloride 20 mEq ER Tab PO STA (17:17)
[2016-11-10] MEDS: Sildenafil 20 MG TAB PO SCH (18:30)
[2016-11-10] MEDS: Budesonide 0.5 mg/2 ml Inhal Susp UD IH SCH (20:29)
[2016-11-10] MEDS: Arformoterol 15 mcg/2 ml Inh Sol IH SCH (20:29)
[2016-11-11 06:03] VITALS: O2SAT 100
[2016-11-11 07:00] LABS: ALB/GLOB RATIO 1.2 (1.1-1.8); ALKALINE PHOSPHATASE 103 U/L (38-133); ALT/SGPT 25 U/L (7-56); AST/SGOT 22 U/L (15-39); BILIRUBIN,TOTAL 0.5 mg/dL (0.2-1.3); BLOOD UREA NITROGEN 15 mg/dL (7-21); CALCIUM 9.5 mg/dL (8.4-10.5); CARBON DIOXIDE 32 mmol/L (21-33); CHLORIDE 103 mmol/L (98-107); GFR AFRICAN-AMERICAN > 60; GLUCOSE,RANDOM 118 mg/dL (70-110); POTASSIUM 4.7 mmol/L (3.6-5.0); SODIUM 144 mmol/L (132-148); TOTAL PROTEIN 7.1 g/dL (5.8-8.3)
[2016-11-11] MEDS: Arformoterol 15 mcg/2 ml Inh Sol IH SCH ×2 (08:29→19:29)
[2016-11-11] MEDS: Budesonide 0.5 mg/2 ml Inhal Susp UD IH SCH ×2 (08:29→19:29)
--- NOTE | 2016-11-11 10:45 | CARD ---
APPROVED REPORT EKG Measurement Heart [id number] <Conclusion> Normal sinus rhythm Possible Left atrial enlargement NSSTW changes Prolonged QT
[2016-11-11] MEDS: Potassium Chloride 10 mEq ER Tab PO SCH (11:08)
[2016-11-11] MEDS: Sildenafil 20 MG TAB PO SCH ×2 (11:09→18:04)
[2016-11-11] MEDS: Pantoprazole 40 mg EC Tab PO SCH (11:11)
--- NOTE | 2016-11-11 16:48 | HP ---
CHIEF COMPLAINT: Shortness of breath and chest tightness. HISTORY OF PRESENT ILLNESS: A 61-year-old female with a history of right cardiomyopathy, severe pulm onary hypertension, coronary artery disease and COPD presented to the Emergency Room with complaints of new onset of chest tightness associated with increase of shortness of breath. The patient is on o xygen at home and she was not feeling good despite using oxygen and a nebulizer treatment. The patie nt denied any fever, severe cough, heart palpitation, dizziness. PAST MEDICAL HISTORY: Right cardiomyopathy with congestive heart failure, severe pulmonary hypertens ion, coronary artery disease, peripheral vascular disease, severe COPD, left small cell lower lobe seferino ng cancer. CURRENT MEDICATIONS: Keppra, Cardizem, sildenafil, Dilantin, omeprazole, gabapentin, Lipitor, Cardiz em, Tenormin and amiodarone. ALLERGIES: THE PATIENT HAS KNOWN ALLERGY TO SYED, but no allergies to medication. FAMILY HISTORY: Significant for cardiac problems and hypertension. SOCIAL HISTORY: The patient is an ex-smoker. She quit smoking 8 months ago. She has a history of s moking 1-2 packs per day for the past 40 years. The patient denies any alcohol use or drug use. The patient is . She lives with her family. She is independent of activity of daily living, bu t she uses oxygen daily. REVIEW OF SYSTEMS: She denies any fever, loss of appetite, weight loss. She denies any sore throat, dysphagia. She complains of chronic productive cough, complains of exertional dyspnea, occasional w heezing. She denies any heart palpitations, diaphoresis or chest pain. She denies any epigastric pa in, nausea, vomiting, rectal bleeding. She denies any dysuria, hematuria, flank pain. The patient d enies any dizziness, blurry vision, neurological weakness, tremor. The patient denies suicidal thoug hts, but complains of being anxious on occasions and has depressed mood. PHYSICAL EXAMINATION: VITAL SIGNS: Stable. The patient is afebrile, temperature 97.4 this morning. Pulse 76, regular. B lood pressure on admission 132/77; this morning 89/52. Her respiratory rate is 18 and oxygen saturat ion on admission was 90% on 5 liters, then increased to 99% on nonrebreather. GENERAL: The patient is currently on 5 liters of nasal cannula, comfortable, alert, awake, oriented. HEENT: Head is normocephalic, atraumatic. Oral mucosa is moist. NECK: Supple. LUNGS: With decreased breath sounds, but there are no rales, wheezing or rhonchi. HEART: With regular rhythm, rate of 80 per minute. ABDOMEN: Soft, nontender, nondistended. EXTREMITIES: With no edema and full range of motion. NEUROLOGIC: Normal. DIAGNOSTIC TESTS: CBC stable with WBC 5.4, hemoglobin 11.3, hematocrit 35.3, platelet count 246. He r PT/PTT normal. Chemistry showed sodium 143, potassium borderline low at 3.5. Her renal function w as normal with BUN 13, creatinine 1, glucose 112. Her troponin level was 0.02 and BNP was 5600. Her chest x-ray showed increased bilateral vascular congestion, no pulmonary infiltrations. EKG showed normal sinus rhythm with left atrial enlargement, nonspecific ST-T changes. ASSESSMENT: 1. A 61-year-old female with history of right cardiomyopathy and severe pulmonary hypertension, pres ented with increase of shortness of breath and chest tightness with elevated BNP and abnormal chest x -ray consistent with congestive heart failure decompensation. 2. Severe pulmonary hypertension. 3. Severe chronic obstructive pulmonary disease. 4. Hypokalemia. 5. Small cell nonresectable left lung cancer. PLAN OF TREATMENT: The patient will be admitted to telemetry for observation. She will be treated w ith her chronic medications as well as IV Lasix. Will monitor her blood pressure since she tends to have hypotension. [employer] will be called on consult. We will monitor her electrolytes. Keira Keith MD cc: [id number] TT: 11/11/2016 16:47:50 nm
[2016-11-12] MEDS: Amoxicillin-Clav 875-125 mg Tab PO SCH ×2 (01:30→09:51)
[2016-11-12] MEDS: MethylPREDNISolone 40 mg Vial IVP SCH ×3 (01:30→13:48)
[2016-11-12 06:06] LABS: HEMATOCRIT 34.4 % (36.0-48.0); MEAN CELL VOLUME 94.8 fL (80.0-105.0); MEAN CORPUSCULAR HEMOGLOBIN 29.8 pg (25.0-35.0); MEAN CORPUSCULAR HGB CONC 31.4 g/dl (31.0-37.0); MEAN PLATELET VOLUME 9.2 fl (7.0-11.0); RED CELL DISTRIBUTION WIDTH 18.1 % (11.5-14.5); WHITE BLOOD COUNT 5.4 10^3/ul (4.5-11.0)
[2016-11-12 07:00] LABS: ALB/GLOB RATIO 1.1 (1.1-1.8); BILIRUBIN,TOTAL 0.4 mg/dL (0.2-1.3); CALCIUM 8.8 mg/dL (8.4-10.5); POTASSIUM 3.6 mmol/L (3.6-5.0); TOTAL PROTEIN 6.5 g/dL (5.8-8.3)
[2016-11-12] MEDS: Arformoterol 15 mcg/2 ml Inh Sol IH SCH (08:03)
[2016-11-12] MEDS: Budesonide 0.5 mg/2 ml Inhal Susp UD IH SCH (08:03)
--- NOTE | 2016-11-12 08:08 | CON ---
DATE: 11/11/2016 REASON FOR CONSULTATION: Shortness of breath, cardiac evaluation, history of coronary artery disease , history of inoperable lung cancer. BRIEF CLINICAL HISTORY: This is a 61-year-old female with a history of coronary artery disease, jean pheral arterial disease, history of inoperable lung CA who was recently discharged from the [facility] unit yesterday, admitted again with shortness of breath. The patient was on chemotherapy. PAST MEDICAL HISTORY: Is significant for lung CA, inoperable; COPD, SVT, paroxysmal atrial fibrillat ion, mitral regurgitation, tricuspid regurgitation, history of PTCA with a bare metal stent 7. RECENT CARDIAC WORKUP: As follows: The patient had an echocardiography 07/11/2016 with an ejection fracture of 65% to 70%, dilated RV and LA, right ventricle severely dilated, RV systolic function se verely reduced, severe mitral regurgitation, severe tricuspid regurg, RV systolic pressure 123, histo ry of severe pulmonary hypertension. The patient had also cardiac catheterization 07/15/2016, which revealed normal LV function, ejection fraction 55%, essentially left main free of significant disease , bifurcating LAD, circumflex, LAD is without significant disease, circumflex with diffuse 40% to 50% narrowing, RCA has 80% to 90%; a bare metal stent was placed. A right heart catheterization reveale d RA 10-12, RV 60/10, PA pressure of 60/27 and mean PA 38. Pulmonary capillary pressure was 13. Car diac 3.83, cardiac index 2.9, 6.8 units. The above cardiac catheterization was don e after discontinuing Primacor for 14 hours. A bare metal stent was done in the RCA. History of lung carcinoma, getting chemotherapy, who was recently discharged, readmitted again now wi th shortness of breath. SOCIAL HISTORY: Denies any of , denies history of alcohol abuse. REVIEW OF SYSTEMS: A 14 review of systems as per HPI. PHYSICAL EXAMINATION: VITAL SIGNS: Temperature afebrile, heart rate 95, blood pressure 99/67. HEENT: PERRLA. Extraocular muscles intact. NECK: Supple. No carotid bruits. No thyromegaly. CHEST: Clear to auscultation. HEART: S1, S2 regular. ABDOMEN: Soft. EXTREMITIES: Clubbing and cyanosis negative. LABORATORY DATA: Blood workup as follows: WBC is , hemoglobin, 11.0, hematocrit 35.3, platelet count 246. Chemistry shows sodium 141, potassium 4.7, chloride 103, carbon dioxide 32, anion gap of 14, BUN 15, creatinine 1.1. BNP of 5600. IMPRESSION: Decompensated congestive heart failure, acute chronic secondary to diastolic dysfunction , has mitral and tricuspid regurgitation, has upper lung carcinoma, chronic obstructive pulmonary dis ease exacerbation, history of supraventricular tachycardia, history of coronary artery disease, statu s post percutaneous transluminal coronary angioplasty of right coronary artery in 07/2016, history of pulmonary artery disease, recent echo shows pulmonary artery disease, coronary artery disease status post bare metal stent in 07/2016. RECOMMENDATION: Continue to discontinue Plavix because of more than 3 months. Continue IV Lasix, __ ___ treatment for COPD, the patient dry. Resume beta parrish. Will follow with you. Thank you, Dr. Keith, for providing me the opportunity in taking care of the patient. Serenity Maguire MD cc: [id number] TT: 11/11/2016 20:49:02 Confirmation # [id number] Dictation # [id number] dn
[2016-11-12] MEDS: Potassium Chloride 10 mEq ER Tab PO SCH (08:31)
[2016-11-12] MEDS: Sildenafil 20 MG TAB PO SCH ×2 (09:51→17:46)
[2016-11-12] MEDS: Pantoprazole 40 mg EC Tab PO SCH (09:51)
--- NOTE | 2016-11-12 10:09 | CON ---
DATE: 11/11/2016 PULMONARY CONSULT REASON FOR CONSULT: Respiratory failure requiring noninvasive ventilation. HISTORY OF PRESENT ILLNESS: This is a 61-year-old female known to have a lung cancer, which is unres ectable, been on radiation and chemotherapy, chronic obstructive lung disease, cardiomyopathy with pu lmonary hypertension, right heart failure, recently discharged from the hospital after a prolonged st ay with respiratory failure. With the heart failure, she does not have any air conditioning which is working at home. Was not feeling well. Went out bought a fan to herself, started having wheezing, shortness of breath, came to Emergency Room where she had a chest x-ray done, which shows congestion, ____ cough, sputum production. No hemoptysis, no hematemesis, no hematuria, no diarrhea reported. PAST MEDICAL HISTORY: Chronic obstructive lung disease, unresectable lung cancer, been on chemo and radiation therapy. Severe pulmonary hypertension, peripheral vascular disease, sleep apnea syndrome. ALLERGIES: No known medication allergies, but ALLERGIC TO SYED. FAMILY HISTORY: Positive for hypertension and heart disease. SOCIAL HISTORY: She is an ex-smoker. Denies any alcohol use. MEDICATIONS: She is on Brovana 15 mcg inhaled twice a day, Dilantin 200 mg at bedtime, also 100 mg p .o. daily, folic acid 1 mg daily, Keppra 500 mg twice a day, potassium 10 mEq daily, Lasix 40 mg IV t wice a day, Lipitor 40 mg daily, gabapentin 600 mg at bedtime, Protonix 40 mg daily, Pulmicort inhale d twice a day, Revatio 20 mg twice a day, Tenormin 12.5 mg twice a day. REVIEW OF SYSTEMS: No headache. Has some rhinitis, cough, discolored sputum production. No nausea, no vomiting, no diarrhea. No dysuria. No leg pain or leg swelling. PHYSICAL EXAMINATION: GENERAL: Sitting up on side of the bed, on high-flow oxygen. HEENT: Moist mucous membranes. Crowded airway. Mallampati score is 4. NECK: Supple. No JVD. LUNGS: Have expiratory wheezing with prolonged expiratory phase. No crackles. HEART: S1 and S2. ABDOMEN: Soft, nontender. No organomegaly. EXTREMITIES: There is no edema. NEUROLOGIC: Awake, alert, follows simple commands. LABORATORY DATA: Shows hemoglobin 11.3, hematocrit 35.3, WBC 5.4. Platelets are 246. INR 1.08. PT T is 28. ABG shows pH 7.50, pCO2 of 37. O2 was 47 on nasal cannula. Sodium 144, potassium 4.7, chl oride 103, bicarbonate 32, BUN 15, creatinine 1.1, glucose 118. Calcium 9.5. AST 22, ALT 25. Alk p hos is 103. Albumin is 3.8. ProBNP is 6600. Chest x-ray done on admission shows venous congestion. IMPRESSION AND PLAN: Exacerbation of chronic obstructive lung disease with respiratory failure requi ring noninvasive ventilation, pulmonary hypertension, severe obstructive lung disease, unresectable l flash cancer, has been on chemotherapy. Paroxysmal atrial fibrillation, activities of daily living dys function. I agree with Dr. Singh with the present management. We will add Solu-Medrol 40 mg q. 12 hours, Ce ftin 500 mg twice a day. Gastric prophylaxis, deep venous thrombosis prophylaxis. BiPAP 14/8 with 4 0% oxygen while sleeping. May place her on high-flow nasal cannula during the daytime. Follow up harry loera in the morning. Serenity Martinez MD cc: [phone] TT: 11/12/2016 10:08:38 Confirmation # [id number] Dictation # [id number] jn
--- NOTE | 2016-11-12 11:12 | PN ---
DATE: 11/12/2016 REASON FOR CONSULTATION AND FOLLOWUP: Shortness of breath, cardiac evaluation, history of coronary a rtery disease, history of inoperable lung cancer. BRIEF CLINICAL HISTORY: A 61-year-old female with past medical history significant for peripheral ar terial disease, coronary artery disease, status post bare metal stent in RCA on 07/15/2016, history of paroxysmal atrial fibrillation, severe mitral and tricuspid regurgitation appreciated with shortne ss of breath, decompensated congestive heart failure. PHYSICAL EXAMINATION: VITAL SIGNS: Temperature afebrile, heart rate 84, blood pressure 101/69. HEENT: PERRLA. Extraocular muscles intact. NECK: Supple. No carotid bruits. No thyromegaly. CHEST: Clear to auscultation. HEART: S1, S2 regular. ABDOMEN: Soft. EXTREMITIES: Clubbing and cyanosis negative. LABORATORY DATA: Blood workup as follows: WBC 5.4, hemoglobin 10.8, hematocrit 34.4, platelet count 201. Chemistry shows sodium 140, potassium 3.6, chloride 100, carbon dioxide 32, anion gap of 12. BUN 25, creatinine 1.2. BNP ____. TSH 1.17. IMPRESSION: Decompensated congestive heart failure, acute on chronic secondary to diastolic dysfunct ion, as well as severe mitral and tricuspid regurgitation and upper lung carcinoma, paroxysmal atrial fibrillation, peripheral arterial disease, coronary artery disease status post bare metal stent in R CA, pulmonary hypertension. RECOMMENDATION: Supplement potassium, continue diuretics. I will change the Lasix from ____ tomorro w. Possible discharge in a day or two. Thank you, Dr. Longoria, for providing the opportunity in taking care of the patient. Serenity Maguire MD cc: [id number] TT: 11/12/2016 11:08:06 Confirmation # [id number] Dictation # [id number] dio
[2016-11-12] MEDS ORDERED: Potassium Chloride 20 mEq ER Tab PO ONE (12:00)
--- NOTE | 2016-11-12 13:43 | PQF RESP ---
This form is a permanent part of the medical record Dr. Martinez, Diagnosis of respiratory failure requires severity specifics: is it acute, chronic, acute on chronic. Please document. Clarification of your documentation is requested to better reflect the severity of illness and intensity of treatment of your patient. Indicators present [] Use of Home Oxygen [] Respiratory rate > 28 or <8/min (Labored respirations) [] PCO2 > 50 mm Hg or (Hypercapnia) (somnolence) [] PaO2 < 60 mm Hg or Hypoxemia (confusion) [] ABG blood gas pH < 7.35 [] SpO2 < 90% sat on Room Air [] Cyanosis [] Unable to Speak in Full Sentences [] Use of Accessory Muscles / Tripoding [] Wheezing [] Other: [] Location in the medical record that reflects the above clinical findings: [] Treatment Provided: [] PHYSICIAN'S RESPONSE Based on your medical judgment of the clinical indicators outlined above, are you treating this patient for a known or suspected: [] Acute Respiratory Failure (hypoxia or hypercapnia) [] Chronic Respiratory Failure (hypoxia or hypercapnia) [] Acute on Chronic Respiratory Failure (hypoxia or hypercapnia) [] Hypoxemia please specify ACUTE, CHRONIC or ACUTE on CHRONIC [] Other []_ [] If unable to determine, please check the box, sign and date. Present On Admission (POA) Indicator: [] Present at the time of admission [] Not present at the time of admission [] Clinically Undetermined In responding to this query, please exercise your independent professional judgment. The fact that a question is asked does not imply that any particular answer is desired or expected. Thank you for your clarification on this documentation. If you have any questions please call:[ ] * Thank you, [ ]Melva [facility] #[id number] chief informatics officer Chronic Respiratory Failure Description: Respiratory failure is a syndrome in which the respiratory system fails in one or both of its gas exchange functions: oxygenation and carbon dioxide elimination. In theory, respiratory failure is defined as a Pa02 value of <60 mm/Hg or a PaC02 of >50 mm/Hg. However, these values may be affected by renal compensation. Respiratory failure may be acute or chronic. While acute respiratory failure is characterized by life-threatening derangement in arterial blood gases and acid-base balance, the manifestations of chronic respiratory failure are less dramatic and may not be as readily apparent. Classifications: Respiratory failure may be classified as hypoxemic (usually characterized by Pa02 of <60 mm/Hg) or hypercapnic (usually characterized by PaC02 >50 mm/Hg) and either may be acute or chronic. Chronic hypercapnic respiratory failure develops over time and allows for renal compensation and an increase in bicarbonate concentration; therefore the pH is usually only slightly decreased. The distinction between acute and chronic hypoxemic respiratory failure cannot readily be made on the basis of ABGs; the clinical markers of chronic hypoxemia, such as polythycemia or cor pulmonale suggest a long standing disorder (chronic hypoxemic respiratory failure). Clinical Indicators: dyspnea at rest or "chronic" dyspnea, concomitant conditions such as polycythemia or cor pulmonale, requirement for continuous oxygen support, forced expiratory volume in one second (FEV1) of 49 or less, pursed lip breathing, "barrel" chest, hyperinflation by CXR, muscle wasting, malnutrition/obesity, poor exercise capacity, peripheral edema, description as a "blue bloater" (usually associated with chronic, obstructive bronchitis) or "pink puffer" (usually associated with emphysema) Risks: Chronic Hypoxemic Respiratory Failure - COPD, pulmonary fibrosis, asthma , pulmonary arterial hypertension, granulomatous lung diseases, congenital heart disease, bronchiectasis, kyphoscoliosis, obesity; Chronic Hypercapnic Respiratory Failure - COPD, severe asthma, myasthenia gravis, polyneuropathy, polio, head and cervical spine injuries, obesity hypoventilation syndrome. Treatment: supplemental oxygen, bronchodilators, corticosteroids, adequate nutrition, lung transplant References: Am. J. Respir. Crit. Care Med. "Global Strategy for the Diagnosis, Management and Prevention of COPD: GOLD Exectuive Summary," Antoinette Jones Anzueto - 2007; Proceedings of the [place] [employer] "Mechanisms and Measurements of Dyspnea in COPD," Gayathri - 2006; WebMD; Respiratory Failure, Sat MD Jordan - 11/2005; Stephon's Principles of Internal Medicine, 17th edition. Acute Respiratory Failure Acute Respiratory Failure indicators include: ~Respirations >28 ~Air hunger ~Use of accessory muscles of respiration ~Inability to speak in full sentences Cyanosis ~Pulse ox <90% RA or <95% on O2 pH <7.35 or >7.45 ~pO2 < 60 mm Hg (or 10mm below COPD patient's baseline) ~pCO2 >50mm Hg (or 10mm above COPD patient's baseline) "Respiratory failure may be assigned as a principal diagnosis when it is the condition established after study to be chiefly responsible for occasioning admission to the hospital. The fact that the respiratory failure was managed without intubation and mechanical ventilation does not preclude its use." [facility], 3rd Qtr., 1988, p. 7 MTDD
--- NOTE | 2016-11-12 16:54 | DS ---
DIAGNOSES: 1. Congestive heart failure, decompensated with acute on chronic secondary to diastolic dysfunction. 2. Exacerbation of chronic obstructive pulmonary disease. 3. Hypotension. 4. Severe pulmonary hypertension. 5. Small cell left lung cancer. PLAN OF TREATMENT: The patient is a 61-year-old female admitted for increase of shortness of breath, found to be hypoxic in the Emergency Room with elevated BNP at range of 5000 and abnormal chest x-ra y with pulmonary congestion. The patient is feeling much better this morning. She denies significan t shortness of breath continues, with chronic productive cough. PHYSICAL EXAMINATION ON DISCHARGE: VITAL SIGNS: Stable. Temperature 98.2, pulse 90 regular, blood pressure 80/60, respiratory rate 20, oxygen saturation is in low 90s and on nasal cannula. GENERAL: The patient is sitting in bed, comfortable, in no acute form of distress. HEENT: Head is normocephalic, atraumatic. Oral mucosa is moist. NECK: Supple, no neck masses or JVD. LUNGS: With decreased breath sounds bilaterally. No crackles or wheezing. HEART: With regular rhythm, rate of 90 per minute. ABDOMEN: Soft, nontender, nondistended. EXTREMITIES: With no edema. Full range of motion. NEUROLOGIC: Normal. LABORATORY DATA: CBC stable with chronic anemia, hemoglobin 10.8, stable. WBC 5.4. Her chemistry w ith normal electrolytes. Her BUN is 25, creatinine 1.2. Her BNP went down to 1700 down from 5600 ye sterday. HOSPITAL COURSE: The patient was treated with IV Lasix, maintained on her chronic medications: Amio darone, sildenafil, beta parrish, metoprolol. The patient was treated with oral amoxicillin and Solu -Medrol for exacerbation of COPD added by orthodontic technician. Her condition improved. PLAN OF TREATMENT: The patient will be discharged home today. Will be continued with heart healthy diet with low sodium. The patient will be maintained on Lasix 40 mg daily and potassium 20 mEq daily . The patient will continue sildenafil 20 mg daily, beta parrish, metoprolol tartrate 12.5 mg twice a day, Keppra twice a day, Dilantin twice a day, budesonide 0.5 mg twice a day with Brovana twice a d ay, Protonix for gastric protection 40 mg daily. The patient will use oxygen as needed at home. She is also on CPAP machine at home. The patient was advised to follow up with Dr. Martinez pulmonologdaniel ordonez, for some CPAP machine adjustment. The patient will follow up with primary care doctor in 1 week. Keira Keith MD cc: [id number] TT: 11/12/2016 16:53:53 ln
[2016-11-12 17:36] VITALS: BP 101/67; RESP 16; TEMP 98
[2016-11-12 19:01] VITALS: PULSE 99
--- NOTE | 2016-11-12 19:27 | PN ---
DATE: 11/12/2016 REFERRING PHYSICIAN: Dr. Keith. SUBJECTIVE: She is sitting on the side of the bed, on nasal cannula oxygen. She feels much better c ompared to yesterday. Cough is better, not much sputum production. No nausea, no vomiting and no di arrhea. No leg pain or leg swelling. OBJECTIVE: GENERAL: In no acute distress. VITAL SIGNS: Temp is 98, heart rate is 91, respiratory rate is 18, blood pressure 101/67, pulse ox i s 90% on nasal cannula. HEENT: Moist mucous membranes. Crowded airway. Mallampati score is 4. NECK: Supple. No JVD. LUNGS: Have a prolonged expiratory phase and scattered rhonchi. HEART: S1 and S2. ABDOMEN: Soft, nontender. No organomegaly. EXTREMITIES: There is no edema. NEUROLOGIC: Awake, alert, follows simple command. MEDICATIONS: She is on Augmentin 875 one tab twice a day, Brovana 15 mcg inhaled twice a day, Dilant in 200 mg at bedtime and 100 mg on with breakfast, folic acid 1 mg daily, Keppra 500 mg twice a day, potassium 10 mEq daily, Lasix is at 40 mg twice a day, Lipitor 40 mg daily, Neurontin 600 mg at bedti me, Protonix 40 mg daily, Pulmicort inhaled twice a day, Revatio 20 mg twice a day, Solu-Medrol 40 mg q. 8 hours, Tenormin 12.5 mg twice a day. LABORATORY DATA: Shows hemoglobin 10.8, hematocrit 34.4, WBC 5.4, platelet is 201. Sodium 140, pota ssium 3.6, chloride 100, bicarbonate 32, BUN 25, creatinine 1.2, glucose 93, calcium 8.8, AST 21, ALT 25, alk phos is 86. ProBNP 1740, albumin is at 3.4. TSH is 1.17. IMPRESSION AND PLAN: Exacerbation of chronic obstructive lung disease, respiratory failure requiring noninvasive ventilation, severe obstructive lung disease, unresectable lung cancer, has been on chem otherapy, paroxysmal atrial fibrillation. Will taper down Solu-Medrol to 20 mg q. 12 hours. M ay continue supplemental oxygen during the daytime, BiPAP use at nighttime. Gastric prophylaxis, DVT prophylaxis. The patient is advised to avoid hike in pressure with high humidity. Thank you and will follow with you. Serenity Martinez MD cc: [phone] TT: 11/12/2016 19:26:55 Confirmation # [id number] Dictation # [id number] mn
== END 2016-11-12 19:18 | disposition home or self-care (01) | DRG 291 ==
LOC: ED 14:20 → ERH 16:27 → 2RNO 17:40 → OBSVTOIN 11-11 10:40
PROVIDERS: ADMIT Family Medicine; ATTEND Family Medicine
PROC: 3E0F7GC Introduction of Other Therapeutic Substance into Respiratory Tract, Via Natural or Artificial Opening (ICD-10-PCS; 2016-11-11)
PROC: 5A09357 Assistance with Respiratory Ventilation, Less than 24 Consecutive Hours, Continuous Positive Airway Pressure (ICD-10-PCS; principal; 2016-11-12)
DX: I11.0 Hypertensive heart disease with heart failure (principal); I50.33 Acute on chronic diastolic (congestive) heart failure; J96.91 Respiratory failure, unspecified with hypoxia; I42.9 Cardiomyopathy, unspecified; I27.2 Other secondary pulmonary hypertension; C34.92 Malignant neoplasm of unspecified part of left bronchus or lung; J44.1 Chronic obstructive pulmonary disease with (acute) exacerbation; I08.1 Rheumatic disorders of both mitral and tricuspid valves; I25.10 Atherosclerotic heart disease of native coronary artery without angina pectoris; E87.6 Hypokalemia; I73.9 Peripheral vascular disease, unspecified; I48.0 Paroxysmal atrial fibrillation; G47.30 Sleep apnea, unspecified; Z99.81 Dependence on supplemental oxygen; Z95.5 Presence of coronary angioplasty implant and graft; Z87.891 Personal history of nicotine dependence

== ENCOUNTER 2016-12-05 22:38 | Inpatient (IN) | payer MEDICARE, MEDICAID ==
[2016-12-05 22:39] VITALS: PULSE 82; BMI 29.9
[2016-12-05] MEDS ORDERED: Magnesium Sulfate 2 GM in Sodium Chloride 0.9% 100 ML IVPB ONE (23:25)
--- NOTE | 2016-12-05 23:28 | ED PDOC ---
Arrival/HPI - General Chief Complaint: Chest Pain Time Seen by Provider: 12/05/16 23:10 Historian: Patient - History of Present Illness Narrative History of Present Illness (Text): 12/05/16 23:18 Aviva Feliciano is a 61 year old female, whose past medical history includes left lower lobe lung cancer, adenocarcinoma, COPD, hypertension, recurrent SVT, CAD with stent placement, and atrial fibrillation, who presents to the ED complaining of SOB x 1 hour. Patient stated she was laying down when symptom started. Patient noted she saw Dr. Michelle Gomez early today, in which she was given an injection to increase Platelets. Denies cp, fever, recent travel, leg edema, recent surgery, trauma, or dizziness. Time/Duration: 1-3 hours Quality: Pressure Context: Home Past Medical History - Provider Review Nursing Documentation Reviewed: Yes - Infectious Disease Hx of Infectious Diseases: None - Tetanus Immunization Tetanus Immunization: Unknown - Reproductive Menopause: Yes - Cardiac Hx Cardiac Disorders: Yes Hx Congestive Heart Failure: Yes Hx Hypertension: Yes - Pulmonary Hx Chronic Obstructive Pulmonary Disease (COPD): Yes - Neurological HX Cerebrovascular Accident: No - HEENT Hx HEENT Disorder: Yes (eyeglasses) Hx Blind: No Hx Cataracts: No Hx Deafness: Yes (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 ear) Hx Epistaxis: No Hx Glaucoma: No Hx Macular Degeneration: No Other/Comment: ringing in ears - Renal Hx Renal Failure: No - Endocrine/Metabolic Hx Diabetes Mellitus Type 1: No Hx Diabetes Mellitus Type 2: No Hx Hypothyroidism: No - Hematological/Oncological Hx Blood Disorders: Yes Hx Anemia: Yes (blood transfusion) Hx Cancer: Yes (lung dx 04/2016) Hx Chemotherapy: Yes (and radiation) Other/Comment: uterine ca over yrs ago - Integumentary Hx Dermatological Disorder: No Hx Basal Cell Carcinoma: No Hx Eczema: No Hx Melanoma: No Hx Psoriasis: No Hx Squamous Cell Carcinoma: No - Musculoskeletal/Rheumatological Hx Falls: No - Gastrointestinal Hx Gastrointestinal Disorders: Yes (reflux/pancreatitis) - Genitourinary/Gynecological Hx Genitourinary Disorders: Yes (cervical,uterine ca) Hx Hematuria: No Hx Incontinence: No Hx Sexually Transmitted Diseases: No Hx Urinary Tract Infection: No Other/Comment: hx fibroids had hyst due to fibroids - Psychiatric Hx Psychophysiologic Disorder: Yes Hx Anxiety: Yes Hx Bipolar Disorder: No Hx Depression: No Hx Emotional Abuse: No Hx Hallucinations: No Hx Panic Disorder: No Hx Post Traumatic Stress Disorder: No Hx Psychosis: No Hx Physical Abuse: No Hx Schizophrenia: No Hx Sexual Abuse: No Hx Substance Use: No - Surgical History Hx Amputation: No Hx Appendectomy: No Hx Cardiac Catheterization: No Hx Cholecystectomy: Yes Hx Coronary Stent: Yes Hx Gastric Bypass Surgery: No Hx Hysterectomy: Yes Hx Joint Replacement: No Hx Kidney Transplant: No Hx Liver Transplant: No Hx Mastectomy: No Hx Musculoskeletal Surgery: No Hx Open Heart Surgery: No Hx Orthopedic Surgery: No Hx Splenectomy: No Hx Valve Replacement: No Other/Comment: polypectomy, r cw pac - Anesthesia Hx Anesthesia Reactions: No Hx Malignant Hyperthermia: No - Suicidal Assessment Feels Threatened In Home Enviroment: No Family/Social History - Physician Review Nursing Documentation Reviewed: Yes Family/Social History: No Known Family HX Smoking Status: Former Smoker Hx Alcohol Use: No Hx Substance Use: No Hx Substance Use Treatment: No Allergies/Home Meds Allergies/Adverse Reactions: Allergies diallo Allergy (Verified 11/10/16 14:26) RASH Home Medications: Home Meds Medication Instructions Recorded Confirmed Gabapentin 600 mg PO HS 06/22/15 12/06/16 Folic Acid 1 mg PO DAILY 09/22/16 12/06/16 Phenytoin Sodium Extended 200 mg PO HS 09/22/16 12/06/16 [id number] CD [Cardizem CD] 180 mg PO DAILY 09/22/16 12/06/16 Atenolol [Tenormin] 12.5 mg PO BID 10/24/16 12/06/16 Omeprazole Magnesium [Prilosec Otc] 20 mg PO DAILY 10/24/16 12/06/16 Aspirin [Adult Low Dose Aspirin EC] 81 mg PO DAILY 11/10/16 12/06/16 Review of Systems - Review of Systems Constitutional: Normal. absent: Fatigue, Weight Change, Fevers Eyes: Normal ENT: Normal Respiratory: SOB Cardiovascular: Normal Gastrointestinal: Normal Genitourinary Female: Normal Musculoskeletal: Normal Skin: Normal Neurological: Normal Endocrine: Normal Hemo/Lymphatic: Normal Psychiatric: Normal Physical Exam Vital Signs Temp Pulse Resp BP Pulse Ox 12/06/16 02:22 125/77 12/06/16 01:27 100 H 24 122/68 90 L 12/05/16 22:47 97.1 F L 108 H 20 115/71 100 Temperature: Afebrile Blood Pressure: Normal Pulse: Regular Respiratory Rate: Normal Appearance: Positive for: Well-Appearing, Non-Toxic, Uncomfortable Pain Distress: None Mental Status: Positive for: Alert and Oriented X 3 - Systems Exam Head: Present: Atraumatic, Normocephalic Pupils: Present: PERRL Extroacular Muscles: Present: EOMI Conjunctiva: Present: Normal Mouth: Present: Moist Mucous Membranes Neck: Present: Normal Range of Motion Respiratory/Chest: Present: Good Air Exchange, Decreased Breath Sounds. No: Respiratory Distress, Accessory Muscle Use, Rales, Retracting, Rhonchi Cardiovascular: Present: Regular Rate and Rhythm, Normal S1, S2. No: Murmurs Abdomen: Present: Normal Bowel Sounds. No: Tenderness, Distention, Peritoneal Signs Back: Present: Normal Inspection. No: CVA Tenderness Upper Extremity: Present: Normal Inspection, Normal ROM, NORMAL PULSES, Neurovascularly Intact. No: Cyanosis, Edema Lower Extremity: Present: Normal Inspection, NORMAL PULSES, Normal ROM, Neurovascularly Intact, Capillary Refill < 2 s. No: Edema, CALF TENDERNESS Neurological: Present: GCS=15, CN II-XII Intact, Speech Normal, Motor Func Grossly Intact, Normal Sensory Function, Normal Cerebellar Funct, Memory Normal Skin: Present: Warm, Dry, Normal Color. No: Rashes Psychiatric: Present: Alert, Oriented x 3, Normal Insight, Normal Concentration Medical Decision Making ED Course and Treatment: 12/06/16 01:[address] Kalyani Crockett regarding patient c/o sob. CT chest was negative for PE. She agrres with plan for observation on Remote Tele. Dr. Kalyani Crockett will see patient tomorrow morning. 12/06/16 02:01 Patient is requesting Bipap, and Xopenex Neb Re-evaluation Time: 02:01 Reassessment Condition: Re-examined, Improving,but remains with symptoms - Lab Interpretations Microbiology Results: Microbiology Results 12/05/16 23:15 Blood Blood Culture - Preliminary NO GROWTH AFTER 48 HOURS 12/05/16 23:00 Blood Blood Culture - Preliminary NO GROWTH AFTER 48 HOURS Lab Results: 12/07/16 07:00 12/07/16 07:00 Lab Results 12/07/16 07:00: Sodium 140, Chloride 100, Potassium 4.0, Carbon Dioxide 32, Anion Gap 12, BUN 16, Creatinine 1.1, Est GFR ( Amer) > 60, Est GFR (Non- Af Amer) 50, Random Glucose 95, Calcium 8.9, Total Bilirubin 0.4, AST 20, ALT 31 , Alkaline Phosphatase 106, Total Protein 6.2, Albumin 3.5, Globulin 2.7, Albumin/Globulin Ratio 1.3 12/07/16 07:00: WBC 13.5 H D, RBC 3.44 L, Hgb 10.2 L, Hct 31.8 L, MCV 92.4, MCH 29.7, MCHC 32.1, RDW 17.6 H, Plt Count 213, MPV 9.4 12/06/16 02:48: Urine Color Yellow, Urine Appearance Clear, Urine pH 6.0, Ur Specific [place] 1.010, Urine Protein Trace H, Urine Glucose (UA) Negative, Urine Ketones Negative, Urine Blood Negative, Urine Nitrate Negative, Urine Bilirubin Negative, Urine Urobilinogen 1.0 H, Ur Leukocyte Esterase Negative, Urine RBC 0 - 2, Urine WBC 0 - 2, Ur Epithelial Cells 4 - 5, Urine Bacteria Few 12/05/16 23:00: pO2 28 L, VBG pH 7.36, VBG pCO2 55.0, VBG HCO3 31.1 H, VBG Total CO2 32.8 H, VBG O2 Sat (Calc) 49.5, VBG Base Excess 4.5 H, VBG Potassium 3.5 L, Sodium 142.0, Chloride 109.0 H, Glucose 112 H, Lactate 1.8, FiO2 21.0, Venous Blood Potassium 3.5 L 12/05/16 23:00: PT 11.4, INR 1.06, APTT 27.7 12/05/16 23:00: Sodium 142, Chloride 104, Potassium 3.5 L, Carbon Dioxide 30, Anion Gap 12, BUN 14, Creatinine 1.0, Est GFR ( Amer) > 60, Est GFR (Non- Af Amer) 56, Random Glucose 104, Calcium 9.2, Total Bilirubin 0.7, AST 28, ALT 27, Alkaline Phosphatase 112, Lactate Dehydrogenase 722 H, Total Creatine Kinase 46, Troponin I 0.02, NT-Pro-B Natriuret Pep 4120 H, Total Protein 6.8, Albumin 3.7, Globulin 3.1, Albumin/Globulin Ratio 1.2 12/05/16 23:00: WBC 7.4 D, RBC 3.70, Hgb 11.1 L, Hct 34.2 L, MCV 92.4, MCH 30.0 , MCHC 32.5, RDW 17.3 H, Plt Count 229, MPV 9.5, Gran % 76.1 H, Lymph % (Auto) 10.0 L, [place] % (Auto) 13.3 H, Eos % (Auto) 0.5 L, Baso % (Auto) 0.1, Gran # 5.64 , Lymph # 0.7 L, [place] # 1.0 H, Eos # 0.0, Baso # 0.01 I have reviewed the lab results: Yes Interpretation: No sign. chg./baseline - RAD Interpretation Narrative RAD Interpretations (Text): 12/06/16 02:04 EXAM: CT Angiography Chest With Intravenous Contrast FINDINGS: Limitations: Motion artifact - mild. Pulmonary arteries: No definite pulmonary embolism. Aorta: Mild atherosclerotic disease. No aneurysm. Lungs: Moderate emphysematous changes. Mild patchy but predominantly linear opacities within lower lobes. Few pulmonary nodules, up to 0.6 cm, grossly stable. Pleural space: No significant effusion. No pneumothorax. Heart: Mild cardiomegaly. No significant pericardial effusion. Thyroid: Mildly prominent thyroid gland, stable. Bones/joints: No acute fracture. No dislocation. Soft tissues: Unremarkable. Lymph nodes: No pathologically enlarged lymph nodes. Liver: Few partially enhancing lesions, larger measuring 2.0 x 1.4 x 2.0 cm. Too small to characterize lesion. Adrenals: Mild hypertrophy of adrenal glands. Tubes, lines and devices: Central venous catheter with tip within RIGHT atrium. IMPRESSION: 1. No definite CT evidence of pulmonary embolism. 2. Bibasilar atelectasis+/- early pneumonia. 3. Pulmonary nodules, stable. Followup as clinically warranted. 4. Liver lesions, indeterminate. Recommend nonemergent MRI. 5. Incidental/non-acute findings are described above. Thank you for allowing us to participate in the care of your patient. Dictated and Authenticated by: Alejo Wynn MD 12/06/2016 1:32 AM Eastern Time ([place] & [place]) Radiology Orders: 12/05/16 23:23 CHEST PORTABLE [RAD] Stat 12/05/16 23:25 ANGIO CHEST PE PROTOCOL [CT] Stat - EKG Interpretation Interpreted by ED Physician: Yes (sinus tachycardia @107bpm. No ST changes) Type: 12 lead EKG Comparison: No previous EKG avail. - Medication Orders Current Medication Orders: Amiodarone HCl (Cordarone) 200 mg PO DAILY [facility] Last Admin: 12/08/16 09:43 Dose: 200 mg Arformoterol Tartrate (Brovana) 15 mcg IH [id number] [facility] Last Admin: 12/08/16 07:56 Dose: 15 mcg Aspirin (Ecotrin) 81 mg PO DAILY [facility] Last Admin: 12/08/16 09:42 Dose: 81 mg Azithromycin (Zithromax) 250 mg PO DAILY [facility] PRN Reason: Protocol Last Admin: 12/08/16 09:43 Dose: 250 mg Budesonide (Pulmicort Respules) 1 mg IH [id number] [facility] Last Admin: 12/08/16 07:56 Dose: 1 mg Diltiazem HCl (Cardizem Cd) 180 mg PO DAILY [facility] Last Admin: 12/08/16 09:42 Dose: Not Given Non-Admin Reason: BP Parameters Not Met Furosemide (Lasix) 40 mg IVP DAILY [facility] Last Admin: 12/08/16 09:38 Dose: 40 mg Guaifenesin/Dextromethorphan (Robitussin Dm) 5 ml PO Q6H [facility] Last Admin: 12/08/16 17:29 Dose: 5 ml Levalbuterol HCl (Xopenex) 1.25 mg IH [id number] PRN PRN Reason: Shortness of Breath Levetiracetam (Keppra) 500 mg PO BID [facility] Last Admin: 12/08/16 17:30 Dose: 500 mg Metoprolol Tartrate (Lopressor) 12.5 mg PO BID [facility] Last Admin: 12/08/16 17:29 Dose: 12.5 mg Pantoprazole Sodium (Protonix Ec Tab) 40 mg PO 0600 [facility] Last Admin: 12/08/16 06:16 Dose: 40 mg Phenytoin Sodium (Dilantin) 100 mg PO PCB [facility] Last Admin: 12/08/16 09:42 Dose: 100 mg Phenytoin Sodium (Dilantin) 200 mg PO HS [facility] Last Admin: 12/07/16 21:10 Dose: 200 mg Potassium Chloride (K-Dur 20 Meq Er Tab) 20 meq PO BRK [facility] Last Admin: 12/08/16 07:49 Dose: 20 meq Sildenafil Citrate (Revatio) 20 mg PO BID [facility] Last Admin: 12/08/16 17:29 Dose: 20 mg Discontinued Medications Albuterol/Ipratropium (Duoneb 3 Mg/0.5 Mg (3 Ml) Ud) 3 ml IH Q15M [facility]ANICA Stop: 12/06/16 00:01 Last Admin: 12/06/16 00:10 Dose: 3 ml Azithromycin (Zithromax) 250 mg PO DAILY [facility] PRN Reason: Protocol Furosemide (Lasix) 60 mg IVP STAT STA Stop: 12/06/16 02:10 Last Admin: 12/06/16 02:22 Dose: 60 mg Guaifenesin/Dextromethorphan (Robitussin Dm) 5 ml PO Q6H [facility] Last Admin: 12/07/16 13:20 Dose: 5 ml Magnesium Sulfate 2 gm/ Sodium (Chloride) 104 mls @ 102 mls/hr IVPB ONCE ONE Stop: 12/06/16 00:26 Last Admin: 12/06/16 00:18 Dose: 102 mls/hr Iohexol (Omnipaque 350 150 Ml) Confirm Administered Dose 150 ml .ROUTE .STK-MED ONE Stop: 12/06/16 00:17 Levalbuterol HCl (Xopenex) 1.25 mg IH STAT STA Stop: 12/06/16 01:59 Last Admin: 12/06/16 02:19 Dose: 1.25 mg Levalbuterol HCl (Xopenex) 0.63 mg IH Q6 DANICA Stop: 12/06/16 10:00 Last Admin: 12/06/16 07:43 Dose: 0.63 mg Methylprednisolone (Solu-Medrol) 125 mg IVP STAT STA Stop: 12/05/16 23:26 Last Admin: 12/05/16 23:36 Dose: 125 mg Potassium Chloride (K-Dur 20 Meq Er Tab) 20 meq PO ONCE ONE Stop: 12/06/16 07:40 Last Admin: 12/06/16 09:35 Dose: 20 meq Disposition/Present on Arrival - Present on Arrival Any Indicators Present on Arrival: No History of DVT/PE: No History of Uncontrolled Diabetes: No Urinary Catheter: No History of Decub. Ulcer: No History Surgical Site Infection Following: None - Disposition Have Diagnosis and Disposition been Completed?: Yes Diagnosis: Congestive heart failure (CHF) Disposition: HOSPITALIZED Disposition Time: 02:02 Patient Plan: Admission Patient Problems: Current Active Problems Problem Status Onset COPD exacerbation Acute Non-small cell carcinoma of left lung, stage 3 Acute Condition: STABLE
[2016-12-05] MEDS: Albuterol-Ipratrop 3 mg / 0.5 (3 ml) UD IH SCH (23:36)
[2016-12-05 23:49] LABS: VENOUS BLOOD GAS BASE EXCESS 4.5 mmol/L (0.0-2.0); VENOUS BLOOD GAS PO2 28 mm/Hg (30-55); VENOUS BLOOD PH 7.36 (7.32-7.43)
[2016-12-06 00:01] LABS: BASO # 0.01 K/mm3 (0.0-2.0); BASO % 0.1 % (0.0-3.0); EOS % 0.5 % (1.5-5.0); GRAN # 5.64 (1.4-6.5); GRAN % 76.1 % (50.0-68.0); HEMOGLOBIN 11.1 gm/dL (12.0-16.0); LYMPH # 0.7 (1.2-3.4); MEAN CELL VOLUME 92.4 fL (80.0-105.0); MEAN CORPUSCULAR HGB CONC 32.5 g/dl (31.0-37.0); MEAN PLATELET VOLUME 9.5 fl (7.0-11.0); MONO % 13.3 % (1.0-6.0); PLATELET COUNT 229 10^3/uL (120.0-450.0); RED CELL DISTRIBUTION WIDTH 17.3 % (11.5-14.5); WHITE BLOOD COUNT 7.4 10^3/ul (4.5-11.0)
[2016-12-06 00:06] LABS: INR 1.06 (0.93-1.08); PARTIAL THROMBOPLASTIN TIME 27.7 Seconds (23.7-30.8); PROTHROMBIN TIME 11.4 Seconds (9.9-11.8)
[2016-12-06] MEDS: Albuterol-Ipratrop 3 mg / 0.5 (3 ml) UD IH SCH ×2 (00:10→00:25)
[2016-12-06 01:26] LABS: ALB/GLOB RATIO 1.2 (1.1-1.8); ALBUMIN 3.7 g/dL (3.0-4.8); ALT/SGPT 27 U/L (7-56); AST/SGOT 28 U/L (15-39); BLOOD UREA NITROGEN 14 mg/dL (7-21); CALCIUM 9.2 mg/dL (8.4-10.5); GFR AFRICAN-AMERICAN > 60; GFR NON-AFRICAN AMERICAN 56
--- NOTE | 2016-12-06 01:32 | CT ---
EXAM: CT Angiography Chest With Intravenous Contrast CLINICAL HISTORY: 61 years old, female; Pain and signs and symptoms; Shortness of breath; Chest pain; Additional info: SOB R/O pe TECHNIQUE: Axial computed tomographic angiography images of the chest with intravenous contrast using pulmonary embolism protocol. This CT exam was performed using one or more of the following dose reduction techniques: automated exposure control, adjustment of the mA and/or kV according to patient size, and/or use of iterative reconstruction technique. MIP reconstructed images were created and reviewed. Coronal and sagittal reformatted images were created and reviewed. CONTRAST: 150 mL of [id number] administered intravenously. COMPARISON: CT - ANGIO CHEST PE PROTOCOL 09/22/2016 6:52:16 AM FINDINGS: Limitations: Motion artifact - mild. Pulmonary arteries: No definite pulmonary embolism. Aorta: Mild atherosclerotic disease. No aneurysm. Lungs: Moderate emphysematous changes. Mild patchy but predominantly linear opacities within lower lobes. Few pulmonary nodules, up to 0.6 cm, grossly stable. Pleural space: No significant effusion. No pneumothorax. Heart: Mild cardiomegaly. No significant pericardial effusion. Thyroid: Mildly prominent thyroid gland, stable. Bones/joints: No acute fracture. No dislocation. Soft tissues: Unremarkable. Lymph nodes: No pathologically enlarged lymph nodes. Liver: Few partially enhancing lesions, larger measuring 2.0 x 1.4 x 2.0 cm. Too small to characterize lesion. Adrenals: Mild hypertrophy of adrenal glands. Tubes, lines and devices: Central venous catheter with tip within RIGHT atrium. IMPRESSION: 1. No definite CT evidence of pulmonary embolism. 2. Bibasilar atelectasis+/- early pneumonia. 3. Pulmonary nodules, stable. Followup as clinically warranted. 4. Liver lesions, indeterminate. Recommend nonemergent MRI. 5. Incidental/non-acute findings are described above.
[2016-12-06 01:37] LABS: B-TYPE NATRIURETIC PEPTIDE 4120 pg/mL (0-450); TROPONIN I 0.02 ng/mL
[2016-12-06] MEDS ORDERED: Albuterol 0.083% Inhal Sol (2.5 mg/3 mL) UD IH STA (01:53)
[2016-12-06] MEDS ORDERED: Levalbuterol 1.25 MG/3 ML Inhal Soln UD IH STA (01:58)
[2016-12-06] MEDS: Levalbuterol 0.63 MG/3 ML Inhal Soln UD IH SCH ×2 (02:39→07:43)
[2016-12-06 03:01] LABS: URINE BILIRUBIN NEGATIVE (NEGATIVE); URINE BLOOD NEGATIVE (NEGATIVE); URINE GLUCOSE (UA) NEGATIVE (NEGATIVE); URINE LEUKOCYTE ESTERASE NEGATIVE Leu/uL (NEGATIVE); URINE NITRATE NEGATIVE (NEGATIVE); URINE PROTEIN TRACE mg/dL (<30 mg/dL)
[2016-12-06 03:05] LABS: URINE APPEARANCE CLEAR (CLEAR); URINE COLOR YELLOW (YELLOW)
[2016-12-06 03:21] LABS: URINE RBC 0 - 2 /hpf (0-2)
[2016-12-06 03:22] LABS: URINE BACTERIA FEW (NEG); URINE WBC 0 - 2 /hpf (0-6)
[2016-12-06] MEDS ORDERED: Levalbuterol 1.25 MG/3 ML Inhal Soln UD IH PRN (07:30)
[2016-12-06] MEDS ORDERED: Potassium Chloride 20 mEq ER Tab PO ONE (07:39)
--- NOTE | 2016-12-06 08:59 | RAD ---
HISTORY: sob COMPARISON: Comparison is made to the previous study dated 11/10/2016 FINDINGS: LUNGS: Small reticular opacities are again seen diffusely in the lungs more prominent at the lower lobes and lung bases. PLEURA: No significant pleural effusion identified, no pneumothorax apparent. CARDIOVASCULAR: Normal. OSSEOUS STRUCTURES: No significant abnormalities. VISUALIZED UPPER ABDOMEN: Normal. OTHER FINDINGS: Right-sided Infusaport is seen in place. IMPRESSION: No evidence of significant interval change since the previous exam.
[2016-12-06] MEDS: diltiaZEM 180 mg/24 Hours CD Cap PO SCH (09:34)
[2016-12-06] MEDS: Potassium Chloride 20 mEq ER Tab PO SCH (09:35)
[2016-12-06] MEDS: Sildenafil 20 MG TAB PO SCH ×2 (09:35→18:13)
--- NOTE | 2016-12-06 10:41 | CARD ---
APPROVED REPORT EKG Measurement Heart [id number] <Conclusion> Sinus tachycardia NSSTW changes Prolonged QTc No change
--- NOTE | 2016-12-06 18:51 | CP.PCM.CON ---
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 She requires continuous Oxygen and reported SOB necessitating an ER visit w subsequent admission. At present she is in NAD, w possible dc home in AM Review of Systems - Constitutional Constitutional: Fatigue - Cardiovascular Cardiovascular: Dyspnea on Exertion - Respiratory Respiratory: Dyspnea on Exertion Past Patient History - Infectious Disease Hx of Infectious Diseases: None - Tetanus Immunizations Tetanus Immunization: Unknown - Past Medical History & Family History Past Medical History?: Yes - Past Social History Smoking Status: Former Smoker - CARDIAC Hx Cardiac Disorders: Yes Hx Angina: No Hx Cardia Arrhythmia: Yes (Afib, SVT) Hx Circulatory Problems: No Hx Congestive Heart Failure: Yes Hx Heart Murmur: No Hx Heart Transplant: No Hx Hypercholesterolemia: Yes Hx Hypertension: Yes Hx Internal Defibrillator: No Hx Mitral Valve Prolapse: (two leaky valves) Hx Pacemaker: No Hx Peripheral Edema: No Hx Peripheral Vascular Disease: Yes Other/Comment: cardiac stent x1 3 weeks ago - PULMONARY Hx Respiratory Disorders: Yes Hx Asthma: Yes Hx Bronchitis: No Hx Chronic Obstructive Pulmonary Disease (COPD): Yes Hx Emphysema: Yes Hx Lung Cancer: Yes (Stage IIIB NSC) Hx Pneumonia: Yes Hx Respiratory Aspiration: No Hx Sleep Apnea: No Hx Tuberculosis: No - NEUROLOGICAL Hx Neurological Disorder: Yes Hx Alzheimer's Disease: No HX Cerebrovascular Accident: No Hx Dementia: No Hx Dizziness: No Hx Meningitis: No Hx Migraine: No Hx Parkinson's Disease: No Hx Seizures: Yes Hx Transient Ischemic Attacks (TIA): No - HEENT Hx HEENT Problems: Yes (eyeglasses) Hx Blind: No Hx Cataracts: No Hx Deafness: Yes (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 ear) Hx Difficulty Chewing: No Hx Epistaxis: No Hx Glaucoma: No Hx Macular Degeneration: No - RENAL Hx Renal Failure: No - ENDOCRINE/METABOLIC Hx Endocrine Disorders: No - HEMATOLOGICAL/ONCOLOGICAL Hx Blood Disorders: Yes Hx AIDS: No Hx Anemia: Yes (blood transfusion) Hx Cancer: Yes (lung dx 04/2016) Hx Chemotherapy: Yes (and radiation) Hx Cirrhosis: No Hx Hepatitis A: No Hx Hepatitis B: No Hx Human Immunodeficiency Virus (HIV): No Hx Metastesis: No Hx Shingles: No Hx Unexplained Bleeding: No - INTEGUMENTARY Hx Dermatological Problems: No Hx Basil Cell: No Hx Eczema: No Hx Melanoma: No Hx Psoriasis: No Hx Squamous Cell: No - MUSCULOSKELETAL/RHEUMATOLOGICAL Hx Musculoskeletal Disorders: Yes Hx Arthritis: Yes Hx Back Pain: Yes Hx Degenerative Joint Disease: No Hx Falls: No Hx Unsteady Gait: No - GASTROINTESTINAL Hx Gastrointestinal Disorders: Yes (reflux/pancreatitis) Hx Colostomy: No Hx Crohn's Disease: No Hx Diverticulitis: No Hx Gall Bladder Disease: Yes Hx Gastroesophageal Reflux: Yes Hx Ileostomy: No Hx Liver Failure: No Hx Pancreatitis: Yes HX Swallowing Problems: No Hx Ulcer: No - GENITOURINARY/GYNECOLOGICAL Hx Genitourinary Disorders: Yes (cervical,uterine ca) Hx Hematuria: No Hx Incontinence: No Hx Sexually Transmitted Disorders: No Hx Urinary Tract Infection: No Other/Comment: hx fibroids had hyst due to fibroids - PSYCHIATRIC Hx Psychophysiologic Disorder: Yes Hx Anxiety: Yes Hx Bipolar Disorder: No Hx Paranoia: No Hx Post Traumatic Stress Disorder: No Hx Psychosis: No Hx Physical Abuse: No Hx Schizophrenia: No Hx Sexual Abuse: No Hx Substance Use: No - SURGICAL HISTORY Hx Surgeries: Yes Hx Amputation: No Hx Appendectomy: No Hx Cardiac Catheterization: No Hx Cholecystectomy: Yes Hx Coronary Stent: Yes Hx Gastric Bypass Surgery: No Hx Hysterectomy: Yes Hx Joint Replacement: No Hx Kidney Transplant: No Hx Liver Transplant: No Hx Mastectomy: No Hx Musculoskeletal Surgery: No Hx Open Heart Surgery: No Hx Orthopedic Surgery: No Hx Splenectomy: No Hx Valve Replacement: No - ANESTHESIA Hx Anesthesia Reactions: No Hx Malignant Hyperthermia: No Meds Allergies/Adverse Reactions: Allergies Allergy/AdvReac Type Severity Reaction Status Date / Time diallo Allergy RASH Verified 11/10/16 14:26 - Medications Medications: Current Medications Amiodarone HCl (Cordarone) 200 mg PO DAILY [facility] Last Admin: 12/06/16 09:36 Dose: 200 mg Arformoterol Tartrate (Brovana) 15 mcg IH [id number] [facility] Aspirin (Ecotrin) 81 mg PO DAILY [facility] Last Admin: 12/06/16 09:35 Dose: 81 mg Budesonide (Pulmicort Respules) 1 mg IH [id number] [facility] Diltiazem HCl (Cardizem Cd) 180 mg PO DAILY [facility] Last Admin: 12/06/16 09:34 Dose: 180 mg Furosemide (Lasix) 40 mg IVP DAILY [facility] Last Admin: 12/06/16 09:34 Dose: 40 mg Levalbuterol HCl (Xopenex) 1.25 mg IH [id number] PRN PRN Reason: Shortness of Breath Levetiracetam (Keppra) 500 mg PO BID [facility] Last Admin: 12/06/16 18:12 Dose: 500 mg Metoprolol Tartrate (Lopressor) 12.5 mg PO BID [facility] Last Admin: 12/06/16 18:12 Dose: 12.5 mg Pantoprazole Sodium (Protonix Ec Tab) 40 mg PO 0600 [facility] Phenytoin Sodium (Dilantin) 100 mg PO PCB [facility] Last Admin: 12/06/16 09:36 Dose: 100 mg Phenytoin Sodium (Dilantin) 200 mg PO HS [facility] Potassium Chloride (K-Dur 20 Meq Er Tab) 20 meq PO BRK [facility] Last Admin: 12/06/16 09:35 Dose: 20 meq Sildenafil Citrate (Revatio) 20 mg PO BID [facility] Last Admin: 12/06/16 18:13 Dose: 20 mg Physical Exam - Head Exam Head Exam: NORMOCEPHALIC - Eye Exam Eye Exam: Normal appearance - ENT Exam ENT Exam: Mucous Membranes Moist, Normal Exam - Respiratory Exam Respiratory Exam: Clear to Auscultation Bilateral - Cardiovascular Exam Cardiovascular Exam: REGULAR RHYTHM - GI/Abdominal Exam GI & Abdominal Exam: Normal Bowel Sounds - Extremities Exam Extremities exam: Positive for: normal inspection - Neurological Exam Neurological exam: Oriented x3 Results - Vital Signs Recent Vital Signs: Last Vital Signs Temp 98.4 F 12/06/16 16:00 Pulse 99 H 12/06/16 18:12 Resp 18 12/06/16 16:00 BP 103/71 12/06/16 18:12 Pulse Ox 98 12/06/16 16:00 - Labs Result Diagrams: 12/05/16 23:00 12/05/16 23:00 Labs: Laboratory Results - last 24 hr 12/06/16 02:48 Urine Color Yellow Urine Appearance Clear Urine pH 6.0 Ur Specific [place] 1.010 Urine Protein Trace H Urine Glucose (UA) Negative Urine Ketones Negative Urine Blood Negative Urine Nitrate Negative Urine Bilirubin Negative Urine Urobilinogen 1.0 H Ur Leukocyte Esterase Negative Urine RBC 0 - 2 Urine WBC 0 - 2 Ur Epithelial Cells 4 - 5 Urine Bacteria Few Assessment & Plan (1) COPD exacerbation Status: Acute (2) COPD (chronic obstructive pulmonary disease) Status: Acute (3) Congestive heart failure (CHF) Status: Chronic (4) Hypoxia Status: Acute (5) Anemia Status: Chronic (6) Anemia in chronic illness Status: Chronic (7) Lung cancer Status: Chronic (8) Seizure Status: Chronic - Assessment and Plan (Free Text) Plan: Cont Rx as per Dr Singh, f/u w Dr Gomez in 3-5 d in office once pt stable
[2016-12-06] MEDS: Arformoterol 15 mcg/2 ml Inh Sol IH SCH (19:40)
[2016-12-06] MEDS: Budesonide 0.5 mg/2 ml Inhal Susp UD IH SCH (19:40)
[2016-12-06] MEDS ORDERED: Arformoterol 15 mcg/2 ml Inh Sol IH SCH (20:00)
--- NOTE | 2016-12-06 22:25 | CP.PCM.HP ---
History of Present Illness - History of Present Illness History of Present Illness: 61 yo with history of severe COPD, pulmonary hypertension, CAD , left lower lung cancer presented to ER with complaint of sudden onset of shortness of breath . She was feeling good , resting in bed when developed sudden dyspnea and chest tightness. She denies fever, increase of cough , chest pain. She had chemotherapy last week and yesterday got Neupogen injection in Oncology office. Present on Admission - Present on Admission Any Indicators Present on Admission: No History of DVT/PE: No History of Uncontrolled Diabetes: No Urinary Catheter: No Decubitus Ulcer Present: No History Surgical Site Infection Following: None Review of Systems - Constitutional Constitutional: Sleep Apnea. absent: As Per HPI, Anorexia, Chills, Daytime Sleepiness, Excessive Sweating, Fatigue, Fever, Frequent Falls, Headache, Increased Appetite, Lethargy, Malaise, Night Sweats, Snoring, Weight Gain, Weight Loss, Weakness, Other - EENT Eyes: absent: As Per HPI, Blind Spots, Blurred Vision, Change in Vision, Decreased Night Vision, Diplopia, Discharge, Dry Eye, Exophthalmos, Floaters, Irritation, Itchy Eyes, Loss of Peripheral Vision, Pain, Photophobia, Requires Corrective Lenses, Sees Flashes, Spots in Vision, Tunnel Vision, Other Visual Disturbances, Loss of Vision, Other Ears: absent: As Per HPI, Decreased Hearing, Ear Discharge, Ear Pain, Tinnitus, Abnormal Hearing, Disequilibrium, Dizziness, Other Nose/Mouth/Throat: Hoarsness. absent: As Per HPI, Epistaxis, Nasal Congestion, Nasal Discharge, Nasal Obstruction, Nasal Trauma, Nose Pain, Post Nasal Drip, Sinus Pain, Sinus Pressure, Bleeding Gums, Change in Voice, Dental Pain, Dry Mouth, Dysphagia, Halitosis, Lip Swelling, Mouth Lesions, Mouth Pain, Odynophagia, Sore Throat, Throat Swelling, Tongue Swelling, Facial Pain, Neck Pain, Neck Mass, Other - Breasts Breasts: absent: As Per HPI, Change in Shape, Mass, Pain, Nipple Discharge, Nipple Inversion, Skin Changes, Swelling, Other - Cardiovascular Cardiovascular: Dyspnea, Dyspnea on Exertion, Palpitations. absent: As Per HPI , Acrocyanosis, Chest Pain, Chest Pain at Rest, Chest Pain with Activity, Claudication, Diaphoresis, Edema, Irregular Heart Rhythm, Pain Radiating to Arm/ Neck/Jaw, Leg Edema, Leg Ulcers, Lightheadedness, Orthopnea, Paroxysmal Nocturnal Dyspnea, Pedal Edema, Radiating Pain, Rapid Heart Rate, Slow Heart Rate, Syncope, Other - Respiratory Respiratory: Cough, Dyspnea, Dyspnea on Exertion, Wheezing, Snoring. absent: As Per HPI, Hemoptysis, Stridor, Pain on Inspiration, Chest Congestion, Excessive Mucous Production, Change in Mucous Color, Pain with Coughing, Other - Gastrointestinal Gastrointestinal: absent: As Per HPI, Abdominal Pain, Belching, Bloating, Change in Bowel Habits, Change in Stool Character, Coffee Ground Emesis, Constipation, Cramping, Diarrhea, Dyspepsia, Dysphagia, Early Satiety, Excessive Flatus, Fecal Incontinence, Heartburn, Hematemesis, Hematochezia, Loose Stools, Melena, Nausea, Odynophagia, Temesmus, Vomiting, Other - Genitourinary Genitourinary: absent: As Per HPI, Change in Urinary Stream, Difficulty Urinating, Dysuria, Flank Pain, Hematuria, Pyuria, Nocturia, Urinary Incontinence, Urinary Frequency, Urinary Hesitance, Urinary Urgency, Voiding Freq/Small Amts, Freq UTI, Hx Renal/Bladder Calculi, Hx /Renal Surgery, Bladder Distension, Other - Reproductive: Female Reproductive:Female: Post Menopausal - Musculoskeletal Musculoskeletal: Arthralgias, Back Pain. absent: As Per HPI, Abnormal Gait, Atrophy, Deformity, Joint Swelling, Limited Range of Motion, Loss of Height, Muscle Cramps, Muscle Weakness, Myalgias, Neck Pain, Numbness, Radiating Pain into Limb, Stiffness, Tingling, Other - Integumentary Integumentary: absent: As Per HPI, Acne, Alopecia, Bleeding Lesions, Change in Hair, Change in Nails, Change in Pigmentation, Changing Lesions, Dry Skin, Erythema, Furuncle, Hirsutism, Lesions, New Lesions, Non-Healing Lesions, Photosensitivity, Pruritus, Rash, Skin Pain, Skin Ulcer, Sores, Striae, Swelling , Unusual Bruising, Wounds, Jaundice, Other - Neurological Neurological: absent: As Per HPI, Abnormal Gait, Abnormal Hearing, Abnormal Movements, Abnormal Speech, Behavioral Changes, Burning Sensations, Confusion, Convulsions, Disequilibrium, Dizziness, Numbness, Focal Weakness, Frequent Falls , Headaches, Lack of Coordination, Loss of Vision, Memory Loss, Paresthesias, Radicular Pain, Restless Legs, Sensory Deficit, Syncope, Tingling, Tremor, Vertigo, Weakness, Other Visual Disturbances, Other - Psychiatric Psychiatric: absent: As Per HPI, Abnormal Sleep Pattern, Anhedonia, Anxiety, Auditory Hallucinations, Behavioral Changes, Change in Appetite, Change in Libido, Confusion, Depression, Difficulty Concentrating, Hallucinations, Homicidal Ideation, Hopelessness, Irritability, Memory Loss, Mood Swings, Panic Attacks, Paranoia, Suicidal Ideation, Visual Hallucinations, Tactile Hallucinations, Other - Endocrine Endocrine: absent: As Per HPI, Change in Body Appearance, Change in Libido, Cold Intolorance, Deepening of Voice, Excessive Sweating, Fatigue, Flushing, Heat Intolorance, Increase in Ring/Shoe/Hat Size, Palpitations, Polydipsia, Polyphagia, Polyuria, Other - Hematologic/Lymphatic Hematologic: absent: As Per HPI, Easy Bleeding, Easy Bruising, Lymphadenopathy, Other Past Patient History - Infectious Disease Hx of Infectious Diseases: None - Tetanus Immunizations Tetanus Immunization: Unknown - Past Medical History & Family History Past Medical History?: Yes - Past Social History Smoking Status: Former Smoker Chewing Tobacco Use: No Cigar Use: No Alcohol: None Drugs: Denies Home Situation {Lives}: With Family - CARDIAC Hx Cardiac Disorders: Yes Hx Angina: No Hx Atrial Fibrillation: Yes Hx Cardia Arrhythmia: Yes (Afib, SVT) Hx Circulatory Problems: No Hx Congestive Heart Failure: Yes Hx Heart Murmur: No Hx Heart Transplant: No Hx Hypercholesterolemia: Yes Hx Hypertension: Yes Hx Hypotension: No Hx Internal Defibrillator: No Hx Mitral Valve Prolapse: Yes (two leaky valves) Hx Pacemaker: No Hx Peripheral Edema: No Hx Peripheral Vascular Disease: Yes Other/Comment: cardiac stent x1 3 weeks ago - PULMONARY Hx Respiratory Disorders: Yes Hx Asthma: Yes Hx Bronchitis: Yes Hx Chronic Obstructive Pulmonary Disease (COPD): Yes Hx Emphysema: Yes Hx Lung Cancer: Yes (Stage IIIB NSC) Hx Pneumonia: Yes Hx Pulmonary Embolism: No Hx Respiratory Aspiration: No Hx Sleep Apnea: No Hx Tuberculosis: No - NEUROLOGICAL Hx Neurological Disorder: Yes (seizure disorder) Hx Alzheimer's Disease: No HX Cerebrovascular Accident: No Hx Dementia: No Hx Dizziness: No Hx Meningitis: No Hx Migraine: No Hx Parkinson's Disease: No Hx Seizures: Yes Hx Transient Ischemic Attacks (TIA): No - HEENT Hx HEENT Problems: Yes (eyeglasses) Hx Blind: No Hx Cataracts: No Hx Deafness: Yes (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 ear) Hx Difficulty Chewing: No Hx Epistaxis: No Hx Glaucoma: No Hx Macular Degeneration: No - RENAL Hx Chronic Kidney Disease: No Hx Dialysis: No Hx Kidney Stones: No Hx Neurogenic Bladder: No Hx Pyelonephritis: No Hx Renal (Kidney) Cancer: No Hx Renal Failure: No - ENDOCRINE/METABOLIC Hx Endocrine Disorders: No - HEMATOLOGICAL/ONCOLOGICAL Hx Blood Disorders: Yes Hx AIDS: No Hx Anemia: Yes (blood transfusion) Hx Cancer: Yes (lung dx 04/2016) Hx Chemotherapy: Yes (and radiation) Hx Cirrhosis: No Hx Gum Bleeding: No Hx Hepatitis A: No Hx Hepatitis B: No Hx Human Immunodeficiency Virus (HIV): No Hx Metastesis: No Hx Shingles: No Hx Unexplained Bleeding: No - INTEGUMENTARY Hx Dermatological Problems: No Hx Basil Cell: No Hx Eczema: No Hx Melanoma: No Hx Psoriasis: No Hx Squamous Cell: No - MUSCULOSKELETAL/RHEUMATOLOGICAL Hx Musculoskeletal Disorders: Yes Hx Arthritis: Yes Hx Back Pain: Yes Hx Degenerative Joint Disease: No Hx Falls: No Hx Unsteady Gait: No - GASTROINTESTINAL Hx Gastrointestinal Disorders: Yes (reflux/pancreatitis) Hx Colostomy: No Hx Crohn's Disease: No Hx Diverticulitis: No Hx Gall Bladder Disease: Yes Hx Gastroesophageal Reflux: Yes Hx Ileostomy: No Hx Liver Failure: No Hx Nausea: No Hx Pancreatitis: Yes HX Swallowing Problems: No Hx Ulcer: No - GENITOURINARY/GYNECOLOGICAL Hx Genitourinary Disorders: Yes (cervical,uterine ca) Hx Bladder Cancer: No Hx Bladder Stone: No Hx Cervical Cancer: No Hx Hematuria: No Hx Incontinence: No Hx Sexually Transmitted Disorders: No Hx Urinary Tract Infection: No Other/Comment: hx fibroids had hyst due to fibroids - PSYCHIATRIC Hx Psychophysiologic Disorder: Yes Hx Anxiety: Yes Hx Bipolar Disorder: No Hx Paranoia: No Hx Post Traumatic Stress Disorder: No Hx Psychosis: No Hx Physical Abuse: No Hx Schizophrenia: No Hx Sexual Abuse: No Hx Substance Use: No - SURGICAL HISTORY Hx Surgeries: Yes Hx Abdominal Aortic Aneurysm Repair: No Hx Amputation: No Hx Angioplasty: Yes Hx Appendectomy: No Hx Arteriovenous Shunt: No Hx Breast Biopsy: No Hx Cardiac Catheterization: No Hx Carotid Endarterectomy: No Hx Cholecystectomy: Yes Hx Coronary Artery Bypass Graft: No Hx Coronary Stent: Yes Hx Eye Surgery: No Hx Femoral-Popliteal Bypass Graft: No Hx Gastric Bypass Surgery: No Hx Hysterectomy: Yes Hx Joint Replacement: No Hx Kidney Transplant: No Hx Liver Transplant: No Hx Mastectomy: No Hx Musculoskeletal Surgery: No Hx Open Heart Surgery: No Hx Orthopedic Surgery: No Hx Splenectomy: No Hx Valve Replacement: No - ANESTHESIA Hx Anesthesia Reactions: No Hx Malignant Hyperthermia: No Meds Allergies/Adverse Reactions: Allergies Allergy/AdvReac Type Severity Reaction Status Date / Time diallo Allergy RASH Verified 11/10/16 14:26 Physical Exam - Constitutional Appears: No Acute Distress, Chronically Ill - Head Exam Head Exam: ATRAUMATIC, NORMOCEPHALIC - Eye Exam Eye Exam: Normal appearance Pupil Exam: PERRL - ENT Exam ENT Exam: Mucous Membranes Moist - Neck Exam Neck exam: Positive for: Full Rom. Negative for: Lymphadenopathy, Meningismus, Normal Inspection, Tenderness, Thyromegaly - Respiratory Exam Respiratory Exam: Decreased Breath Sounds. absent: Accessory Muscle Use, Chest Wall Tenderness, Clear to Auscultation Bilateral, Prolonged Expiratory Phase, Rales, Rhonchi, Wheezes, Respiratory Distress, Stridor, NORMAL BREATHING PATTERN - Cardiovascular Exam Cardiovascular Exam: Tachycardia. absent: Bradycardia, Clicks, Diastolic murmur , Gallop, Irregular Rhythm, REGULAR RHYTHM, JVD, RRR, Rubs, +S1, +S2, +S4, Systolic Murmur - GI/Abdominal Exam GI & Abdominal Exam: Normal Bowel Sounds, Soft. absent: Bruit, Diminished Bowel Sounds, Distended, Firm, Guarding, Hernia, Hyperactive Bowel Sounds, Hypoactive Bowel Sounds, Mass, Organomegaly, Pulsatile Mass, Rebound, Rigid, Tenderness - Extremities Exam Extremities exam: Positive for: full ROM. Negative for: calf tenderness, joint swelling, normal capillary refill, normal inspection, pedal edema, tenderness, pedal pulses present - Back Exam Back exam: NORMAL INSPECTION - Neurological Exam Neurological exam: Alert, CN II-XII Intact, Normal Gait, Oriented x3, Reflexes Normal - Psychiatric Exam Psychiatric exam: Normal Affect, Normal Mood - Skin Skin Exam: Dry, Intact, Normal Color, Warm Results - Vital Signs Recent Vital Signs: Last Vital Signs Temp 98.4 F 12/06/16 16:00 Pulse 99 H 12/06/16 18:12 Resp 18 07/07/17 16:00 BP 103/71 12/06/16 18:12 Pulse Ox 98 12/06/16 16:00 - Labs Result Diagrams: 12/05/16 23:00 12/05/16 23:00 Labs: Laboratory Results - last 24 hr 12/06/16 02:48 Urine Color Yellow Urine Appearance Clear Urine pH 6.0 Ur Specific [place] 1.010 Urine Protein Trace H Urine Glucose (UA) Negative Urine Ketones Negative Urine Blood Negative Urine Nitrate Negative Urine Bilirubin Negative Urine Urobilinogen 1.0 H Ur Leukocyte Esterase Negative Urine RBC 0 - 2 Urine WBC 0 - 2 Ur Epithelial Cells 4 - 5 Urine Bacteria Few - EKG Data Rate: Tachycardia - Imaging and Cardiology CT scan - chest Status: Report reviewed by me Additional comment: chronic emphysema, chronic scars, nodules in left lower lungs, no signs of pulmonary embolism Assessment & Plan (1) COPD exacerbation Status: Acute (2) Anemia in chronic illness Status: Chronic (3) Dyspnea Status: Acute Priority: High (4) Lung cancer Status: Chronic (5) Tachycardia Status: Acute - Assessment and Plan (Free Text) Plan: Admit for observation. Oxygen and BPAP machine , monitor oxygen saturation,. Restart Brovana and Budesonide. Pulmonary consultation. Continue chronic antiarrhythmics , Cardizem and beta parrish for rhythm and rate control. Oncology consultation for follow up lung ca / chemotherapy treatment . - Date & Time Date: 12/06/16 Time: 09:00
[2016-12-07] MEDS: Budesonide 0.5 mg/2 ml Inhal Susp UD IH SCH ×2 (07:31→20:45)
[2016-12-07] MEDS: Arformoterol 15 mcg/2 ml Inh Sol IH SCH ×2 (07:31→20:44)
[2016-12-07 07:36] LABS: HEMOGLOBIN 10.2 gm/dL (12.0-16.0); MEAN CELL VOLUME 92.4 fL (80.0-105.0); MEAN CORPUSCULAR HEMOGLOBIN 29.7 pg (25.0-35.0); MEAN CORPUSCULAR HGB CONC 32.1 g/dl (31.0-37.0); MEAN PLATELET VOLUME 9.4 fl (7.0-11.0); RBC 3.44 10^6/uL (3.5-6.1); RED CELL DISTRIBUTION WIDTH 17.6 % (11.5-14.5); WHITE BLOOD COUNT 13.5 10^3/ul (4.5-11.0)
[2016-12-07 07:59] LABS: ALB/GLOB RATIO 1.3 (1.1-1.8); ALBUMIN 3.5 g/dL (3.0-4.8); ALT/SGPT 31 U/L (7-56); AST/SGOT 20 U/L (15-39); BLOOD UREA NITROGEN 16 mg/dL (7-21); CALCIUM 8.9 mg/dL (8.4-10.5); GFR AFRICAN-AMERICAN > 60; GFR NON-AFRICAN AMERICAN 50
[2016-12-07] MEDS: Pantoprazole 40 mg EC Tab PO SCH (08:11)
[2016-12-07] MEDS: Potassium Chloride 20 mEq ER Tab PO SCH (08:11)
--- NOTE | 2016-12-07 08:48 | CP.PCM.PN ---
Subjective - Date & Time of Evaluation Date of Evaluation: 12/07/16 Time of Evaluation: 08:40 - Subjective Subjective: Pt resting comfortably, in NAD, breathing better, O2 on Objective - Vital Signs/Intake and Output Vital Signs (last 24 hours): Temp Pulse Resp BP Pulse Ox 97.5 F L 86 20 89/72 L 99 12/07/16 06:00 12/07/16 06:00 12/07/16 06:00 12/07/16 06:00 12/07/16 06:00 Intake and Output: 12/07/16 12/07/16 06:59 18:59 Intake Total 780 0 Output Total 700 300 Balance 80 -300 - Medications Medications: Current Medications Amiodarone HCl (Cordarone) 200 mg PO DAILY [facility] Last Admin: 12/06/16 09:36 Dose: 200 mg Arformoterol Tartrate (Brovana) 15 mcg IH [id number] [facility] Last Admin: 12/07/16 07:31 Dose: 15 mcg Aspirin (Ecotrin) 81 mg PO DAILY [facility] Last Admin: 12/06/16 09:35 Dose: 81 mg Budesonide (Pulmicort Respules) 1 mg IH [id number] [facility] Last Admin: 12/07/16 07:31 Dose: 1 mg Diltiazem HCl (Cardizem Cd) 180 mg PO DAILY [facility] Last Admin: 12/06/16 09:34 Dose: 180 mg Furosemide (Lasix) 40 mg IVP DAILY [facility] Last Admin: 12/06/16 09:34 Dose: 40 mg Levalbuterol HCl (Xopenex) 1.25 mg IH [id number] PRN PRN Reason: Shortness of Breath Levetiracetam (Keppra) 500 mg PO BID [facility] Last Admin: 12/06/16 18:12 Dose: 500 mg Metoprolol Tartrate (Lopressor) 12.5 mg PO BID [facility] Last Admin: 12/06/16 18:12 Dose: 12.5 mg Pantoprazole Sodium (Protonix Ec Tab) 40 mg PO 0600 [facility] Last Admin: 12/07/16 08:11 Dose: 40 mg Phenytoin Sodium (Dilantin) 100 mg PO PCB [facility] Last Admin: 12/07/16 08:11 Dose: 100 mg Phenytoin Sodium (Dilantin) 200 mg PO HS [facility] Last Admin: 12/06/16 22:46 Dose: 200 mg Potassium Chloride (K-Dur 20 Meq Er Tab) 20 meq PO BRK [facility] Last Admin: 12/07/16 08:11 Dose: 20 meq Sildenafil Citrate (Revatio) 20 mg PO BID [facility] Last Admin: 12/06/16 18:13 Dose: 20 mg - Labs Labs: 12/07/16 07:00 12/07/16 07:00 PT 11.4 Seconds (9.9-11.8) 12/05/16 23:00 INR 1.06 (0.93-1.08) 12/05/16 23:00 APTT 27.7 Seconds (23.7-30.8) 12/05/16 23:00 - Constitutional Appears: No Acute Distress - Head Exam Head Exam: NORMOCEPHALIC - Eye Exam Eye Exam: Normal appearance - ENT Exam ENT Exam: Mucous Membranes Moist, Normal Exam - Neck Exam Neck Exam: Normal Inspection - Respiratory Exam Respiratory Exam: Decreased Breath Sounds - Cardiovascular Exam Cardiovascular Exam: REGULAR RHYTHM - GI/Abdominal Exam GI & Abdominal Exam: Soft, Normal Bowel Sounds - Extremities Exam Extremities Exam: Normal Inspection - Neurological Exam Neurological Exam: Oriented x3 - Skin Skin Exam: Normal Color Assessment and Plan (1) COPD exacerbation Status: Acute (2) COPD (chronic obstructive pulmonary disease) Status: Acute (3) Congestive heart failure (CHF) Status: Chronic (4) Hypoxia Status: Acute (5) Anemia Status: Chronic (6) Anemia in chronic illness Status: Chronic (7) Lung cancer Status: Chronic (8) Seizure Status: Chronic - Assessment and Plan (Free Text) Plan: Cont Rx as per George Singh/Michelle w f/u in office w Dr Gomez this week if pt dc'd
[2016-12-07] MEDS: Sildenafil 20 MG TAB PO SCH ×2 (09:38→17:23)
[2016-12-07] MEDS: diltiaZEM 180 mg/24 Hours CD Cap PO SCH (09:39)
[2016-12-07] MEDS ORDERED: guaiFENesin DM 100 mg-10 mg/5 ml UD PO SCH (13:00)
[2016-12-07] MEDS: guaiFENesin DM 100 mg-10 mg/5 ml UD PO SCH (17:23)
[2016-12-08] MEDS: Pantoprazole 40 mg EC Tab PO SCH (06:16)
[2016-12-08] MEDS: guaiFENesin DM 100 mg-10 mg/5 ml UD PO SCH ×4 (06:16→17:29)
[2016-12-08] MEDS: Potassium Chloride 20 mEq ER Tab PO SCH (07:49)
[2016-12-08] MEDS: Budesonide 0.5 mg/2 ml Inhal Susp UD IH SCH ×2 (07:56→20:10)
[2016-12-08] MEDS: Arformoterol 15 mcg/2 ml Inh Sol IH SCH ×2 (07:56→20:10)
[2016-12-08] MEDS: diltiaZEM 180 mg/24 Hours CD Cap PO SCH (09:42)
[2016-12-08] MEDS: Sildenafil 20 MG TAB PO SCH ×2 (09:43→17:29)
--- NOTE | 2016-12-08 18:02 | CP.PCM.PN ---
Subjective - Date & Time of Evaluation Date of Evaluation: 12/08/16 Time of Evaluation: 14:30 - Subjective Subjective: Pt lying awake in bed in NAD with breathing OK today Objective - Vital Signs/Intake and Output Vital Signs (last 24 hours): Temp Pulse Resp BP Pulse Ox 98.8 F 93 H 20 112/77 99 12/08/16 17:26 12/08/16 17:29 12/08/16 17:26 12/08/16 17:29 12/08/16 17:26 - Medications Medications: Current Medications Amiodarone HCl (Cordarone) 200 mg PO DAILY [facility] Last Admin: 12/08/16 09:43 Dose: 200 mg Arformoterol Tartrate (Brovana) 15 mcg IH [id number] [facility] Last Admin: 12/08/16 07:56 Dose: 15 mcg Aspirin (Ecotrin) 81 mg PO DAILY [facility] Last Admin: 12/08/16 09:42 Dose: 81 mg Azithromycin (Zithromax) 250 mg PO DAILY [facility] PRN Reason: Protocol Last Admin: 12/08/16 09:43 Dose: 250 mg Budesonide (Pulmicort Respules) 1 mg IH [id number] [facility] Last Admin: 12/08/16 07:56 Dose: 1 mg Diltiazem HCl (Cardizem Cd) 180 mg PO DAILY [facility] Last Admin: 12/08/16 09:42 Dose: Not Given Furosemide (Lasix) 40 mg IVP DAILY [facility] Last Admin: 12/08/16 09:38 Dose: 40 mg Guaifenesin/Dextromethorphan (Robitussin Dm) 5 ml PO Q6H [facility] Last Admin: 12/08/16 17:29 Dose: 5 ml Levalbuterol HCl (Xopenex) 1.25 mg IH [id number] PRN PRN Reason: Shortness of Breath Levetiracetam (Keppra) 500 mg PO BID [facility] Last Admin: 12/08/16 17:30 Dose: 500 mg Metoprolol Tartrate (Lopressor) 12.5 mg PO BID [facility] Last Admin: 12/08/16 17:29 Dose: 12.5 mg Pantoprazole Sodium (Protonix Ec Tab) 40 mg PO 0600 [facility] Last Admin: 12/08/16 06:16 Dose: 40 mg Phenytoin Sodium (Dilantin) 100 mg PO PCB [facility] Last Admin: 12/08/16 09:42 Dose: 100 mg Phenytoin Sodium (Dilantin) 200 mg PO HS [facility] Last Admin: 12/07/16 21:10 Dose: 200 mg Potassium Chloride (K-Dur 20 Meq Er Tab) 20 meq PO BRK [facility] Last Admin: 12/08/16 07:49 Dose: 20 meq Sildenafil Citrate (Revatio) 20 mg PO BID [facility] Last Admin: 12/08/16 17:29 Dose: 20 mg - Labs Labs: PT 11.4 Seconds (9.9-11.8) 12/05/16 23:00 INR 1.06 (0.93-1.08) 12/05/16 23:00 APTT 27.7 Seconds (23.7-30.8) 12/05/16 23:00 - Constitutional Appears: No Acute Distress - Head Exam Head Exam: NORMOCEPHALIC - Eye Exam Eye Exam: EOMI, PERRL - ENT Exam ENT Exam: Normal Exam - Neck Exam Neck Exam: Full ROM - Respiratory Exam Respiratory Exam: Decreased Breath Sounds - Cardiovascular Exam Cardiovascular Exam: REGULAR RHYTHM - GI/Abdominal Exam GI & Abdominal Exam: Soft - Extremities Exam Extremities Exam: Normal Inspection - Neurological Exam Neurological Exam: Alert, Awake, Oriented x3 - Skin Skin Exam: Warm Assessment and Plan (1) COPD exacerbation Status: Acute (2) Hypoxia Status: Acute (3) COPD (chronic obstructive pulmonary disease) Status: Acute (4) Non-small cell carcinoma of left lung, stage 3 Status: Acute (5) Congestive heart failure (CHF) Status: Chronic (6) Anemia Status: Chronic (7) Seizure Status: Chronic - Assessment and Plan (Free Text) Plan: Cont Rx as per consultants/PCP w f/u w Dr Gomez in office tomorrow if dc'd
--- NOTE | 2016-12-08 22:25 | CP.PCM.PN ---
Subjective - Date & Time of Evaluation Date of Evaluation: 12/08/16 (patient seen yesterday and today and was awaiting pulm note) Time of Evaluation: 10:00 - Subjective Subjective: Patient with known Stage 3 CA of the lung with repeated admissions for dyspnea , this admission with comorbid element of cardiac failure both right and left sided from comorbid hypertensive cardiomyopathy and pulmonary hypertension . She has responded to slow diuresis without overwhelming hypotension present in the last week. as we encourage activity. Patient notes rarely ventures out of bed since her O2 cable is short but has short stamina at home as we understands. Yesterday we spent almost an hour discussing disease process and the need to adjust her expectations as she is limited by the condition of her lungs and should limit her activity at times since the disease appears not to be progressing for now but her deconditioning is prolonged for the past 2 mos as witnessed by so many readmissions and her lack or reaching our office as outpatient, only as inpatient. She is alert , anxious and fearful of the future of her disease and we encourage her to talk this out with Dr Lama and Dr Gomez as to her expectations We were endorsed her case by Dr Singh who had expected to discharge her yesterday am after pulmonary recommendation but we did not have any consult note so cannot propose discharge plan of care and have continued the IV furosemide for now until the am when perhaps there will be recommendation from phone operator. Her on board test manager is not available this weekend so we have not called for his covering MD; as all three of us would be just following a chronic case we do not usually manage. She is hopefully stable enough to go home tomorrow but should begin discussion with palliative services to perhaps better understand the uncertainty of her condition/ disease . It is difficult to confirm the cure she is hoping for this early on the treatment . Prognosis of repeated hospitalizations was discussed with her at length yesterday and probably not in her best therapeutics . Objective - Vital Signs/Intake and Output Vital Signs (last 24 hours): Temp Pulse Resp BP Pulse Ox 98.8 F 108 H 20 112/77 99 12/08/16 18:37 12/08/16 18:37 12/08/16 18:37 12/08/16 18:37 12/08/16 18:37 - Medications Medications: Current Medications Amiodarone HCl (Cordarone) 200 mg PO DAILY [facility] Last Admin: 12/08/16 09:43 Dose: 200 mg Arformoterol Tartrate (Brovana) 15 mcg IH [id number] [facility] Last Admin: 12/08/16 20:10 Dose: 15 mcg Aspirin (Ecotrin) 81 mg PO DAILY [facility] Last Admin: 12/08/16 09:42 Dose: 81 mg Azithromycin (Zithromax) 250 mg PO DAILY [facility] PRN Reason: Protocol Last Admin: 12/08/16 09:43 Dose: 250 mg Budesonide (Pulmicort Respules) 1 mg IH [id number] [facility] Last Admin: 12/08/16 20:10 Dose: 1 mg Diltiazem HCl (Cardizem Cd) 180 mg PO DAILY [facility] Last Admin: 12/08/16 09:42 Dose: Not Given Furosemide (Lasix) 40 mg IVP DAILY [facility] Last Admin: 12/08/16 09:38 Dose: 40 mg Guaifenesin/Dextromethorphan (Robitussin Dm) 5 ml PO Q6H [facility] Last Admin: 12/08/16 17:29 Dose: 5 ml Levalbuterol HCl (Xopenex) 1.25 mg IH [id number] PRN PRN Reason: Shortness of Breath Levetiracetam (Keppra) 500 mg PO BID [facility] Last Admin: 12/08/16 17:30 Dose: 500 mg Metoprolol Tartrate (Lopressor) 12.5 mg PO BID [facility] Last Admin: 12/08/16 17:29 Dose: 12.5 mg Pantoprazole Sodium (Protonix Ec Tab) 40 mg PO 0600 [facility] Last Admin: 12/08/16 06:16 Dose: 40 mg Phenytoin Sodium (Dilantin) 100 mg PO PCB [facility] Last Admin: 12/08/16 09:42 Dose: 100 mg Phenytoin Sodium (Dilantin) 200 mg PO HS [facility] Last Admin: 12/07/16 21:10 Dose: 200 mg Potassium Chloride (K-Dur 20 Meq Er Tab) 20 meq PO BRK [facility] Last Admin: 12/08/16 07:49 Dose: 20 meq Sildenafil Citrate (Revatio) 20 mg PO BID [facility] Last Admin: 12/08/16 17:29 Dose: 20 mg - Labs Labs: PT 11.4 Seconds (9.9-11.8) 12/05/16 23:00 INR 1.06 (0.93-1.08) 12/05/16 23:00 APTT 27.7 Seconds (23.7-30.8) 12/05/16 23:00 - Constitutional Appears: Well - Head Exam Head Exam: ATRAUMATIC, NORMAL INSPECTION, NORMOCEPHALIC - Eye Exam Eye Exam: EOMI, Normal appearance, PERRL Pupil Exam: NORMAL ACCOMODATION, PERRL - ENT Exam ENT Exam: Mucous Membranes Moist, Normal External Ear Exam, Normal Oropharynx - Neck Exam Neck Exam: Full ROM - Respiratory Exam Additional comments: Yesterday her breath sounds were incredible on the right , very crystal clear while the left has always had lower lobe crackles and ronchi ; today there are rales on base of right but no use of accessory respiratory muscles - Cardiovascular Exam Cardiovascular Exam: Tachycardia, REGULAR RHYTHM, +S1, +S2 - GI/Abdominal Exam GI & Abdominal Exam: Soft, Diminished Bowel Sounds - Extremities Exam Extremities Exam: Full ROM, Normal Inspection - Back Exam Back Exam: Full ROM, NORMAL INSPECTION - Neurological Exam Neurological Exam: Alert, Awake, CN II-XII Intact, Normal Gait, Oriented x3 Neuro motor strength exam: Left Upper Extremity: 5, Right Upper Extremity: 5, Left Lower Extremity: 5, Right Lower Extremity: 5 - Psychiatric Exam Psychiatric exam: Normal Affect, Normal Mood Additional comments: she feels best , sheltered in the hospital and can best describe when her O2 drops when less anxious - Skin Skin Exam: Intact, Normal Color Assessment and Plan (1) Non-small cell carcinoma of left lung, stage 3 Status: Acute (2) COPD (chronic obstructive pulmonary disease) Assessment & Plan: Continue with pulmonary toilet and prepare for home management . Have asked respiratory staff perhaps to instruct her with spirometry and breathing exercises and provide longer O2 cable so she can reach the bathroom. Patient advised also to sit out of bed to chair and be more aware of taking deep breaths to improve her sputum motility Status: Acute (3) Dyspnea Assessment & Plan: Improved but fearful of the repetitive nature of her hypoxia due to her diseases / Ca and COPD Status: Acute (4) Congestive heart failure (CHF) Assessment & Plan: Right sided helped with sildenafil; left sided helped with current furosemide. She is very anxious about the dyspnea and we encourage her to move more to improve lung capacity Status: Chronic - Assessment and Plan (Free Text) Plan: Yesterday contacted her pharmacy and she will not have levalbuterol available as out patient due to insurance limitations We also asked them to provide a sphygnomanometer so we do not see as much hypotension as we have in the past, but this is also not a covered benefit
[2016-12-09] MEDS: Pantoprazole 40 mg EC Tab PO SCH (06:15)
[2016-12-09] MEDS: guaiFENesin DM 100 mg-10 mg/5 ml UD PO SCH ×3 (06:15→12:01)
[2016-12-09 06:40] LABS: BASO # 0.01 K/mm3 (0.0-2.0); BASO % 0.1 % (0.0-3.0); EOS # 0.1 (0.0-0.7); EOS % 1.5 % (1.5-5.0); GRAN # 4.63 (1.4-6.5); GRAN % 69.2 % (50.0-68.0); HEMOGLOBIN 11.8 gm/dL (12.0-16.0); LYMPH # 0.9 (1.2-3.4); LYMPH % 13.8 % (22.0-35.0); MEAN CELL VOLUME 93.4 fL (80.0-105.0); MEAN CORPUSCULAR HGB CONC 32.2 g/dl (31.0-37.0); MEAN PLATELET VOLUME 9.2 fl (7.0-11.0); MONO % 15.4 % (1.0-6.0); PLATELET COUNT 225 10^3/uL (120.0-450.0); RBC 3.93 10^6/uL (3.5-6.1); RED CELL DISTRIBUTION WIDTH 17.1 % (11.5-14.5); WHITE BLOOD COUNT 6.7 10^3/ul (4.5-11.0)
[2016-12-09 06:49] LABS: ALB/GLOB RATIO 1.3 (1.1-1.8); ALBUMIN 3.7 g/dL (3.0-4.8); ALT/SGPT 25 U/L (7-56); AST/SGOT 16 U/L (15-39); BLOOD UREA NITROGEN 16 mg/dL (7-21); CALCIUM 9.2 mg/dL (8.4-10.5); GFR AFRICAN-AMERICAN > 60; GFR NON-AFRICAN AMERICAN > 60
--- NOTE | 2016-12-09 07:00 | PQF CHF ---
This form is a permanent part of the medical record Dr. Keith, Patient admitted with SOB which may be multifactorial with hx COPD, CHF and lung cancer. CHF is documented as chronic. Please specify type (systolic/diastolic) if determined. Clarification of your documentation is requested to better reflect the severity of illness and intensity of treatment of your patient. Indicators present [X] Diagnosis of CHF and/or history of CHF [X] BNP > 200 [] Imaging Finding of Pulmonary Edema /Pleural Effusions [] Fluid/Volume Overload [] Pitting edema [] Ejection Fraction < 40% (Indicative of Systolic Heart Failure) [] Ejection Fraction > 40% (Indicative of Diastolic Heart Failure) [X] Dyspnea / Orthopenea / Paroxysmal Nocturnal Dyspnea [] Other: Location in the medical record that reflects the above clinical findings: [H+P, laboratory ] Treatment Provided: [ Lasix, ] PHYSICIAN'S RESPONSE Based on your medical judgment of the clinical indicators outlined above, are you treating this patient for a known or suspected: [] Acute CHF [] Systolic [] Diastolic [] Combined [] Chronic CHF [] Systolic [] Diastolic [] Combined [X] Acute on Chronic CHF []Systolic [] Diastolic [X] Combined [] CHF due hypertension [] Acute systolic []Chronic systolic [] Acute/ chronic systolic [X ] Other, please indicate: [ pulmonary hypertension] [] If Unable to Determine, please check the box, sign and date. Present On Admission (POA) Indicator: [X] Present at the time of admission [] Not present at the time of admission [] Clinically Undetermined In responding to this query, please exercise your independent professional judgment. The fact that a question is asked does not imply that any particular answer is desired or expected. Thank you for your clarification on this documentation. If you have any questions please call:[ ] * Thank you, [ ]Rose Watson [facility] #[id number] gravity prospecting operator helper CHRISTIANO
[2016-12-09] MEDS: Arformoterol 15 mcg/2 ml Inh Sol IH SCH (07:34)
[2016-12-09] MEDS: Budesonide 0.5 mg/2 ml Inhal Susp UD IH SCH (07:34)
[2016-12-09] MEDS: Potassium Chloride 20 mEq ER Tab PO SCH (07:37)
[2016-12-09 08:01] VITALS: BP 103/65; PULSE 75; RESP 18; TEMP 98.5; O2SAT 100
--- NOTE | 2016-12-09 08:50 | CP.PCM.PN ---
<Marielena Pinto - Last Filed: 12/09/16 10:25> Subjective - Date & Time of Evaluation Date of Evaluation: 12/09/16 Time of Evaluation: 08:48 - Subjective Subjective: PGY-[address] Gomez Home Home O2. Desat to 86% on movement O2 at 2L RCW PAC Objective - Vital Signs/Intake and Output Vital Signs (last 24 hours): Temp Pulse Resp BP Pulse Ox 98.5 F 75 18 103/65 100 12/09/16 08:00 12/09/16 08:00 12/09/16 08:00 12/09/16 08:00 12/09/16 08:00 Intake and Output: 12/09/16 12/09/16 06:59 18:59 Intake Total 660 Output Total 700 Balance -40 - Medications Medications: Current Medications Amiodarone HCl (Cordarone) 200 mg PO DAILY [facility] Last Admin: 12/08/16 09:43 Dose: 200 mg Arformoterol Tartrate (Brovana) 15 mcg IH [id number] [facility] Last Admin: 12/09/16 07:34 Dose: 15 mcg Aspirin (Ecotrin) 81 mg PO DAILY [facility] Last Admin: 12/08/16 09:42 Dose: 81 mg Azithromycin (Zithromax) 250 mg PO DAILY [facility] PRN Reason: Protocol Last Admin: 12/08/16 09:43 Dose: 250 mg Budesonide (Pulmicort Respules) 1 mg IH [id number] [facility] Last Admin: 12/09/16 07:34 Dose: 1 mg Diltiazem HCl (Cardizem Cd) 180 mg PO DAILY [facility] Last Admin: 12/08/16 09:42 Dose: Not Given Furosemide (Lasix) 40 mg IVP DAILY [facility] Last Admin: 12/08/16 09:38 Dose: 40 mg Guaifenesin/Dextromethorphan (Robitussin Dm) 5 ml PO Q6H [facility] Last Admin: 12/09/16 06:15 Dose: 5 ml Levalbuterol HCl (Xopenex) 1.25 mg IH [id number] PRN PRN Reason: Shortness of Breath Levetiracetam (Keppra) 500 mg PO BID [facility] Last Admin: 12/08/16 17:30 Dose: 500 mg Metoprolol Tartrate (Lopressor) 12.5 mg PO BID [facility] Last Admin: 12/08/16 17:29 Dose: 12.5 mg Pantoprazole Sodium (Protonix Ec Tab) 40 mg PO 0600 [facility] Last Admin: 12/09/16 06:15 Dose: 40 mg Phenytoin Sodium (Dilantin) 100 mg PO PCB [facility] Last Admin: 12/08/16 09:42 Dose: 100 mg Phenytoin Sodium (Dilantin) 200 mg PO HS [facility] Last Admin: 12/08/16 22:24 Dose: 200 mg Potassium Chloride (K-Dur 20 Meq Er Tab) 20 meq PO BRK [facility] Last Admin: 12/09/16 07:37 Dose: Not Given Sildenafil Citrate (Revatio) 20 mg PO BID [facility] Last Admin: 12/08/16 17:29 Dose: 20 mg - Labs Labs: 12/09/16 06:30 12/09/16 06:30 PT 11.4 Seconds (9.9-11.8) 12/05/16 23:00 INR 1.06 (0.93-1.08) 12/05/16 23:00 APTT 27.7 Seconds (23.7-30.8) 12/05/16 23:00 - Constitutional Appears: No Acute Distress - Head Exam Head Exam: ATRAUMATIC, NORMAL INSPECTION, NORMOCEPHALIC - Eye Exam Eye Exam: EOMI, Normal appearance, PERRL - ENT Exam ENT Exam: Mucous Membranes Moist - Neck Exam Neck Exam: absent: Meningismus - Respiratory Exam Respiratory Exam: Clear to Ausculation Bilateral, Rhonchi (bronchial-vesciular, persisted not cleared by cough), Wheezes (mild, end-expiratory). absent: Rales - Cardiovascular Exam Cardiovascular Exam: REGULAR RHYTHM, +S1, +S2 - GI/Abdominal Exam GI & Abdominal Exam: Soft, Diminished Bowel Sounds. absent: Guarding, Rigid - Extremities Exam Extremities Exam: Normal Capillary Refill, Pedal Edema. absent: Calf Tenderness - Neurological Exam Neurological Exam: Alert, Awake, Oriented x3 - Psychiatric Exam Psychiatric exam: Normal Affect, Normal Mood - Skin Skin Exam: Dry, Warm Assessment and Plan - Assessment and Plan (Free Text) Plan: 61F with non-small cell carcinoma lung cancer 3b admitted for dysnpnea. She also has HTN, recurent SVT, CAD with stent, a-fib, copd on home o2. Pt was recently given neupogen last . Pt was admitted for dynspea. Dypsnea 2/2 COPD vs CHF vs lung CA hypoxia respiratory distress s/p bipap - pulmonary toilet and prepare for home management - respiratory staff to instruct her with spirometry and breathing exercises and provide longer O2 cable so she can reach the bathroom. - OOB with assist - Pro-BNP 4120 - deSat while ambulating in PT, requireing continuous o2 CHF - Right sided helped with sildenafil - left sided helped with furosemide - pt is anxious about the dyspnea Liver lesion - LFT normal Nomocytic anemia - stable F/u Dr. Gomez office tomorrow. At least before . Flush port with heparin Will s/r/d/w Dr. Gomez <Michelle Gomez - Last Filed: 12/12/16 20:08> Objective - Vital Signs/Intake and Output Vital Signs (last 24 hours): Temp Pulse Resp BP Pulse Ox 98.5 F 75 18 103/65 100 12/09/16 08:00 12/09/16 09:41 12/09/16 08:00 12/09/16 09:41 12/09/16 08:00 - Labs Labs: 12/09/16 06:30 12/09/16 06:30 PT 11.4 Seconds (9.9-11.8) 12/05/16 23:00 INR 1.06 (0.93-1.08) 12/05/16 23:00 APTT 27.7 Seconds (23.7-30.8) 12/05/16 23:00 Attending/Attestation - Attestation I have personally seen and examined this patient.: Yes I have fully participated in the care of the patient.: Yes I have reviewed all pertinent clinical information, including history, physical exam and plan: Yes
[2016-12-09] MEDS: diltiaZEM 180 mg/24 Hours CD Cap PO SCH ×2 (09:32→09:41)
[2016-12-09] MEDS: Sildenafil 20 MG TAB PO SCH (09:33)
--- NOTE | 2016-12-09 23:40 | CP.PCM.DIS ---
Provider - Provider Date of Admission: 12/08/16 10:12 Attending physician: Keira Singh MD Time Spent in preparation of Discharge (in minutes): 45 Diagnosis - Discharge Diagnosis (1) COPD exacerbation Status: Chronic (2) Anemia in chronic illness Status: Chronic (3) Dyspnea Status: Acute Priority: High (4) Lung cancer Status: Deleted (5) Tachycardia Status: Acute Hospital Course - Lab Results Lab Results: Most Recent Lab Values WBC 6.7 10^3/ul (4.5-11.0) D 12/09/16 06:30 RBC 3.93 10^6/uL (3.5-6.1) 12/09/16 06:30 Hgb 11.8 gm/dL (12.0-16.0) L 12/09/16 06:30 Hct 36.7 % (36.0-48.0) 12/09/16 06:30 MCV 93.4 fL (80.0-105.0) 12/09/16 06:30 MCH 30.0 pg (25.0-35.0) 12/09/16 06:30 MCHC 32.2 g/dl (31.0-37.0) 12/09/16 06:30 RDW 17.1 % (11.5-14.5) H 12/09/16 06:30 Plt Count 225 10^3/uL (120.0-450.0) 12/09/16 06:30 MPV 9.2 fl (7.0-11.0) 12/09/16 06:30 Gran % 69.2 % (50.0-68.0) H 12/09/16 06:30 Lymph % (Auto) 13.8 % (22.0-35.0) L 12/09/16 06:30 [place] % (Auto) 15.4 % (1.0-6.0) H 12/09/16 06:30 Eos % (Auto) 1.5 % (1.5-5.0) 12/09/16 06:30 Baso % (Auto) 0.1 % (0.0-3.0) 12/09/16 06:30 Gran # 4.63 (1.4-6.5) 12/09/16 06:30 Lymph # 0.9 (1.2-3.4) L 12/09/16 06:30 [place] # 1.0 (0.1-0.6) H 12/09/16 06:30 Eos # 0.1 (0.0-0.7) 12/09/16 06:30 Baso # 0.01 K/mm3 (0.0-2.0) 12/09/16 06:30 PT 11.4 Seconds (9.9-11.8) 12/05/16 23:00 INR 1.06 (0.93-1.08) 12/05/16 23:00 APTT 27.7 Seconds (23.7-30.8) 12/05/16 23:00 pO2 28 mm/Hg (30-55) L 12/05/16 23:00 VBG pH 7.36 (7.32-7.43) 12/05/16 23:00 VBG pCO2 55.0 (40-60) 12/05/16 23:00 VBG HCO3 31.1 mmol/l (21-28) H 12/05/16 23:00 VBG Total CO2 32.8 mmol.L (22-28) H 12/05/16 23:00 VBG O2 Sat (Calc) 49.5 % (40-65) 12/05/16 23:00 VBG Base Excess 4.5 mmol/L (0.0-2.0) H 12/05/16 23:00 VBG Potassium 3.5 mmol/L (3.6-5.2) L 12/05/16 23:00 Sodium 142.0 mmol/L (132-148) 12/05/16 23:00 Chloride 109.0 mmol/L (98-107) H 12/05/16 23:00 Glucose 112 mg/dl (65-105) H 12/05/16 23:00 Lactate 1.8 mmol/L (0.7-2.1) 12/05/16 23:00 FiO2 21.0 % 12/05/16 23:00 Sodium 141 mmol/L (132-148) 12/09/16 06:30 Potassium 4.2 mmol/L (3.6-5.0) 12/09/16 06:30 Chloride 100 mmol/L (95-110) 12/09/16 06:30 Carbon Dioxide 32 mmol/L (21-33) 12/09/16 06:30 Anion Gap 13 (10-20) 12/09/16 06:30 BUN 16 mg/dL (7-21) 12/09/16 06:30 Creatinine 0.9 mg/dL (0.5-1.4) 12/09/16 06:30 Est GFR ( Amer) > 60 12/09/16 06:30 Est GFR (Non-Af Amer) > 60 12/09/16 06:30 Random Glucose 93 mg/dL (70-110) 12/09/16 06:30 Calcium 9.2 mg/dL (8.4-10.5) 12/09/16 06:30 Total Bilirubin 0.3 mg/dL (0.2-1.3) 12/09/16 06:30 AST 16 U/L (15-39) 12/09/16 06:30 ALT 25 U/L (7-56) 12/09/16 06:30 Alkaline Phosphatase 111 U/L (38-133) 12/09/16 06:30 Lactate Dehydrogenase 722 U/L (333-699) H 12/05/16 23:00 Total Creatine Kinase 46 U/L (35-230) 12/05/16 23:00 Troponin I 0.02 ng/mL 12/05/16 23:00 NT-Pro-B Natriuret Pep 4120 pg/mL (0-450) H 12/05/16 23:00 Total Protein 6.6 g/dL (5.8-8.3) 12/09/16 06:30 Albumin 3.7 g/dL (3.0-4.8) 12/09/16 06:30 Globulin 2.9 gm/dL 12/09/16 06:30 Albumin/Globulin Ratio 1.3 (1.1-1.8) 12/09/16 06:30 Venous Blood Potassium 3.5 mmol/L (3.6-5.2) L 12/05/16 23:00 Urine Color Yellow (YELLOW) 12/06/16 02:48 Urine Appearance Clear (CLEAR) 12/06/16 02:48 Urine pH 6.0 (4.7-8.0) 12/06/16 02:48 Ur Specific [place] 1.010 (1.005-1.035) 12/06/16 02:48 Urine Protein Trace mg/dL (<30 mg/dL) H 12/06/16 02:48 Urine Glucose (UA) Negative mg/dL (NEGATIVE) 12/06/16 02:48 Urine Ketones Negative mg/dL (NEGATIVE) 12/06/16 02:48 Urine Blood Negative (NEGATIVE) 12/06/16 02:48 Urine Nitrate Negative (NEGATIVE) 12/06/16 02:48 Urine Bilirubin Negative (NEGATIVE) 12/06/16 02:48 Urine Urobilinogen 1.0 E.U./dL (<1 E.U./dL) H 12/06/16 02:48 Ur Leukocyte Esterase Negative [place]/uL (NEGATIVE) 12/06/16 02:48 Urine RBC 0 - 2 /hpf (0-2) 12/06/16 02:48 Urine WBC 0 - 2 /hpf (0-6) 12/06/16 02:48 Ur Epithelial Cells 4 - 5 /hpf (0-5) 12/06/16 02:48 Urine Bacteria Few (NEG) 12/06/16 02:48 - Hospital Course Hospital Course: 61 yo female with history of chronic COPD, pulmonary hypertension, CAD , non small cell left lung cancer admitted for progressive dyspnea and chest tightness. She found to be hypoxic with O2 at 87 %. CT angiogram was negative for pulmonary embolism but positive for chronic emphysema, left lung nodules. BNP was elevated at 4500. The patient was treated with oxygen IV furosemide, duoneb via nebulizer, budesonide via nebulizer. Her condition improved, dyspnea resolved. The patient was ambulatory . Discharge Exam - Head Exam Head Exam: NORMAL INSPECTION, NORMOCEPHALIC - Eye Exam Eye Exam: Normal appearance Pupil Exam: NORMAL ACCOMODATION, PERRL - ENT Exam ENT Exam: Mucous Membranes Moist, Normal Oropharynx - Neck Exam Neck exam: Full Rom - Respiratory Exam Respiratory Exam: Decreased Breath Sounds, Clear to PA & Lateral - Cardiovascular Exam Cardiovascular Exam: REGULAR RHYTHM - GI/Abdominal Exam GI & Abdominal Exam: Normal Bowel Sounds, Soft - Back Exam Back exam: NORMAL INSPECTION - Neurological Exam Neurological exam: Alert, Normal Gait, Oriented x3 - Psychiatric Exam Psychiatric exam: Normal Affect, Normal Mood - Skin Skin Exam: Dry, Intact, Normal Color, Warm Discharge Plan - Follow Up Plan Instructions: Heart Failure (DC), COPD (Chronic Obstructive Pulmonary Disease) (DC) Additional Instructions: -Follow up with Dr. Keith on Friday. Call to confirm appointment. -Continue antibiotics at home.
== END 2016-12-09 16:38 | disposition home or self-care (01) | DRG 190 ==
LOC: ED 22:38 → ERH 12-06 02:05 → 3RNO 12-06 03:06 → OBSVTOIN 12-08 10:12
PROVIDERS: ADMIT Family Medicine; ATTEND Family Medicine
PROC: 5A09457 Assistance with Respiratory Ventilation, 24-96 Consecutive Hours, Continuous Positive Airway Pressure (ICD-10-PCS; principal; 2016-12-06)
PROC: 3E0F7GC Introduction of Other Therapeutic Substance into Respiratory Tract, Via Natural or Artificial Opening (ICD-10-PCS; 2016-12-06)
DX: J44.1 Chronic obstructive pulmonary disease with (acute) exacerbation (principal); I50.43 Acute on chronic combined systolic (congestive) and diastolic (congestive) heart failure; C34.32 Malignant neoplasm of lower lobe, left bronchus or lung; I11.0 Hypertensive heart disease with heart failure; I27.2 Other secondary pulmonary hypertension; D63.8 Anemia in other chronic diseases classified elsewhere; G47.33 Obstructive sleep apnea (adult) (pediatric); I25.10 Atherosclerotic heart disease of native coronary artery without angina pectoris; R09.02 Hypoxemia; R56.9 Unspecified convulsions; Z87.891 Personal history of nicotine dependence; Z95.5 Presence of coronary angioplasty implant and graft

== ENCOUNTER 2017-01-22 10:24 | Inpatient (IN) | payer MEDICARE, MEDICAID ==
[2017-01-22 10:25] VITALS: PULSE 82
[2017-01-22 10:38] VITALS: BMI 32.1
--- NOTE | 2017-01-22 10:46 | ED PDOC ---
Arrival/HPI - General Chief Complaint: Shortness Of Breath Time Seen by Provider: 01/22/17 10:40 Historian: Patient - History of Present Illness Narrative History of Present Illness (Text): 01/22/17 10:43 A 61 year old female whose past medical history includes CA, presents to the emergency department with shortness of breath since yesterday. The patient states that the symptoms began after she was walking in the heat. She notes that he current symptoms feel similar to her previous COPD symptoms. The patient denies fevers, chills, headache, dizziness, chest pain, abdominal pain, nausea, vomiting, diarrhea, or any other complaint. Time/Duration: Other (Yesterday) Symptom Onset: Sudden Symptom Course: Unchanged Activities at Onset: Rest, Light Context: Home Past Medical History - Provider Review Nursing Documentation Reviewed: Yes - Infectious Disease Hx of Infectious Diseases: None - Tetanus Immunization Tetanus Immunization: Unknown - Reproductive Menopause: No - Cardiac Hx Cardiac Disorders: Yes Hx Congestive Heart Failure: Yes Hx Hypertension: Yes - Pulmonary Hx Respiratory Disorders: Yes Hx Chronic Obstructive Pulmonary Disease (COPD): Yes Hx Emphysema: Yes Other/Comment: Left Lung CA - Neurological Hx Neurological Disorder: No - HEENT Hx HEENT Disorder: Yes (eyeglasses) Hx Blind: No Hx Cataracts: No Hx Deafness: Yes (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 ear) Hx Epistaxis: No Hx Glaucoma: No Hx Macular Degeneration: No Other/Comment: ringing in ears - Renal Hx Renal Disorder: No - Endocrine/Metabolic Hx Endocrine Disorders: No - Hematological/Oncological Hx Blood Disorders: Yes Hx Anemia: Yes (blood transfusion) Hx Cancer: Yes (lung dx 04/2016) Hx Chemotherapy: Yes (and radiation) Other/Comment: uterine ca over yrs ago - Integumentary Hx Dermatological Disorder: No Hx Basal Cell Carcinoma: No Hx Eczema: No Hx Melanoma: No Hx Psoriasis: No Hx Squamous Cell Carcinoma: No - Musculoskeletal/Rheumatological Hx Musculoskeletal Disorders: No - Gastrointestinal Hx Gastrointestinal Disorders: Yes (reflux/pancreatitis) - Genitourinary/Gynecological Hx Genitourinary Disorders: Yes (cervical,uterine ca) Other/Comment: hx fibroids had hyst due to fibroids - Psychiatric Hx Psychophysiologic Disorder: Yes Hx Anxiety: Yes Hx Substance Use: No - Surgical History Hx Cholecystectomy: Yes Hx Coronary Stent: Yes Hx Hysterectomy: Yes Other/Comment: polypectomy, r cw pac - Anesthesia Hx Anesthesia Reactions: No Hx Malignant Hyperthermia: No - Suicidal Assessment Feels Threatened In Home Enviroment: No Family/Social History - Physician Review Nursing Documentation Reviewed: Yes Family/Social History: No Known Family HX Smoking Status: Former Smoker Hx Alcohol Use: No Hx Substance Use: No Hx Substance Use Treatment: No Allergies/Home Meds Allergies/Adverse Reactions: Allergies diallo Allergy (Verified 01/22/17 10:43) RASH Home Medications: Home Meds Medication Instructions Recorded Confirmed Gabapentin 600 mg PO HS 06/22/15 01/22/17 Folic Acid 1 mg PO DAILY 09/22/16 01/22/17 Phenytoin Sodium Extended 200 mg PO HS 09/22/16 01/22/17 [id number] CD [Cardizem CD] 180 mg PO DAILY 09/22/16 01/22/17 Atenolol [Tenormin] 12.5 mg PO BID 10/24/16 01/22/17 Omeprazole Magnesium [Prilosec Otc] 20 mg PO DAILY 10/24/16 01/22/17 Aspirin [Adult Low Dose Aspirin EC] 81 mg PO DAILY 11/10/16 01/22/17 Physical Exam - Physical Exam Narrative Physical Exam (Text): - Review of Systems Constitutional: Normal. absent: Fatigue, Weight Change, Fevers Eyes: Normal ENT: Normal Respiratory: (+) SOB absent: Cough, Sputum Cardiovascular: Normal absent: Chest pain, Palpitations, Syncope Gastrointestinal: Normal absent: Abdominal pain, Diarrhea, Nausea, Vomiting Genitourinary: Normal. absent: Dysuria, Frequency, Hematuria Musculoskeletal: Normal. absent: Arthralgias, Back Pain, Neck Pain Skin: Normal Neurological: Normal absent: Focal Weakness Endocrine: Normal Hemo/Lymphatic: Normal Psychiatric: Normal - Physical exam Patient appears age appropriate, speaking full sentences without difficulty - Systems Exam Head: Present: Atraumatic, Normocephalic Pupils: Present: PERRL Extraocular Muscles: Present: EOMI Conjunctiva: Present: Normal Mouth: Present: Moist Mucous Membranes Neck: Present: Normal Range of Motion. No: MIDLINE TENDERNESS, Paraspinal Tenderness Respiratory/Chest: Present: Clear to Auscultation, Good Air Exchange. No: Respiratory Distress, Accessory Muscle Use, Tachypnic Cardiovascular: Present: Regular Rate and Rhythm, Normal S1, S2, Peripheral Pulses Present. No: Murmurs Abdomen: Present: Normal Bowel Sounds, No: Tenderness, Peritoneal Signs, Rebound, Guarding, Distention Back: Present: Normal Inspection. No: Midline Tenderness, Paraspinal Tenderness Upper Extremity: Present: Normal Inspection. No: Cyanosis, Edema Lower Extremity: Present: Normal Inspection. No: Edema Neurological: Present: GCS=15, Speech Normal, cranial nerves II through XII fully intact with no cerebellar abnormality, neuro-sensory fully intact. No focal neurological deficits. Skin: Present: Warm, Dry, Normal Color. No: Rashes Lymphatic: Present: OX3, NI, NC Psychiatric: Present: Alert, Oriented x 3, Normal Insight, Normal Concentration Vital Signs Reviewed: Yes Vital Signs Temp Pulse Resp BP Pulse Ox 01/22/17 11:00 126/85 01/22/17 10:42 97.9 F 78 20 134/93 H 96 Temperature: Afebrile Blood Pressure: Hypertensive Pulse: Regular Respiratory Rate: Normal Appearance: Positive for: Well-Appearing, Non-Toxic, Comfortable Pain Distress: None Mental Status: Positive for: Alert and Oriented X 3 Medical Decision Making ED Course and Treatment: 01/22/17 10:50 Impression: A 61 year old female with shortness of breath since yesterday after taking a walk in the heat. On exam, no acute findings. Differential Diagnosis included but are not limited to: PNA vs. CHF Plan: -- Chest X-ray -- Labs -- Aspirin, Lasix, Nitrostat, and Duoneb -- Reassess and disposition Progress Notes: Chest X-ray Dictator : Chavez Marks MD Report Date : 01/22/2017 11:03:06 IMPRESSION: Minimal patchy infiltrate right lung base 01/22/17 12:10: Blood cultures and antibiotics ordered. Dr. Gomez agrees with admission to Dr. Singh service. 01/22/17 12:[address] Singh, agrees with admission to her service pt in no distress at this time aware of and agrees with plan EKG interpreted by ER physician. Normal sinus. No ST-segment elevations. Normal intervals. - Lab Interpretations Lab Results: 01/22/17 11:20 01/22/17 11:20 Lab Results 01/22/17 11:20: PT 12.7 H, INR 1.18 H, APTT 40.6 H 01/22/17 11:20: WBC 3.1 L D, RBC 3.91, Hgb 11.4 L, Hct 35.5 L, MCV 90.8, MCH 29.2, MCHC 32.1, RDW 16.0 H, Plt Count 332, MPV 9.8, Gran % 63.7, Lymph % (Auto ) 17.3 L, Iron % (Auto) 18.0 H, Eos % (Auto) 0.7 L, Baso % (Auto) 0.3, Gran # 1.95, Lymph # 0.5 L, Iron # 0.6, Eos # 0.0, Baso # 0.01 01/22/17 11:20: Sodium 142, Potassium 3.5 L, Chloride 107, Carbon Dioxide 25, Anion Gap 14, BUN 16, Creatinine 1.0, Est GFR ( Amer) > 60, Est GFR (Non- Af Amer) 56, Random Glucose 104, Calcium 9.2, Total Bilirubin 0.5, AST 21, ALT 39, Alkaline Phosphatase 130, Lactate Dehydrogenase 654, Total Creatine Kinase 52, Troponin I < 0.01 D, NT-Pro-B Natriuret Pep 8030 H, Total Protein 6.1, Albumin 3.7, Globulin 2.4, Albumin/Globulin Ratio 1.5 I have reviewed the lab results: Yes - RAD Interpretation Radiology Orders: 01/22/17 10:42 CHEST PORTABLE [RAD] Stat - Medication Orders Current Medication Orders: Ceftriaxone Sodium (Rocephin 1 Gram Ivpb) 1 gm in 100 mls @ 200 mls/hr IV STAT STA PRN Reason: Protocol Stop: 01/22/17 12:36 Azithromycin (Zithromax 500mg In Ns) 500 mg in 250 mls @ 166.667 mls/hr IV STAT STA PRN Reason: Protocol Stop: 01/22/17 13:36 Discontinued Medications Albuterol/Ipratropium (Duoneb 3 Mg/0.5 Mg (3 Ml) Ud) 3 ml IH Q15M DANICA Stop: 01/22/17 11:16 Last Admin: 01/22/17 11:15 Dose: 3 ml Aspirin (Aspirin Chewable) 324 mg PO STAT STA Stop: 01/22/17 10:41 Last Admin: 01/22/17 11:00 Dose: 324 mg Furosemide (Lasix) 20 mg IVP STAT STA Stop: 01/22/17 10:41 Last Admin: 01/22/17 11:00 Dose: 20 mg Methylprednisolone (Solu-Medrol) 125 mg IVP STAT STA Stop: 01/22/17 10:41 Last Admin: 01/22/17 11:00 Dose: 125 mg Nitroglycerin (Nitrostat Sl Tab) 0.3 mg SL STAT STA Stop: 01/22/17 10:41 Last Admin: 01/22/17 11:00 Dose: 0.3 mg - Scribe Statement The provider has reviewed the documentation as recorded by the Juan Pabloibe Laura Hopkins Provider Scribe Attestation: All medical record entries made by the Scribe were at my direction and personally dictated by me. I have reviewed the chart and agree that the record accurately reflects my personal performance of the history, physical exam, medical decision making, and the department course for this patient. I have also personally directed, reviewed, and agree with the discharge instructions and disposition. Disposition/Present on Arrival - Present on Arrival Any Indicators Present on Arrival: No History of DVT/PE: No History of Uncontrolled Diabetes: No Urinary Catheter: No History of Decub. Ulcer: No History Surgical Site Infection Following: None - Disposition Have Diagnosis and Disposition been Completed?: Yes Diagnosis: Pneumonia, Congestive heart failure (CHF) Disposition: HOSPITALIZED Disposition Time: 12:20 Patient Plan: Admission Patient Problems: Current Active Problems Problem Status Onset Pneumonia Acute Congestive heart failure (CHF) Chronic Condition: FAIR Discharge Instructions (ExitCare): Heart Failure (ED) Forms: [employer] (Maltese)
[2017-01-22] MEDS: Albuterol-Ipratrop 3 mg / 0.5 (3 ml) UD IH SCH ×3 (11:00→11:25)
--- NOTE | 2017-01-22 11:04 | RAD ---
HISTORY: cough COMPARISON: 12/06/2016 FINDINGS: LUNGS: Minimal patchy infiltrate at the right lung base. PLEURA: No significant pleural effusion identified, no pneumothorax apparent. CARDIOVASCULAR: Normal. OSSEOUS STRUCTURES: No significant abnormalities. VISUALIZED UPPER ABDOMEN: Normal. OTHER FINDINGS: None. IMPRESSION: Minimal patchy infiltrate right lung base
[2017-01-22 11:26] LABS: BASO # 0.01 K/mm3 (0.0-2.0); BASO % 0.3 % (0.0-3.0); EOS % 0.7 % (1.5-5.0); GRAN # 1.95 (1.4-6.5); GRAN % 63.7 % (50.0-68.0); HEMATOCRIT 35.5 % (36.0-48.0); LYMPH # 0.5 (1.2-3.4); LYMPH % 17.3 % (22.0-35.0); MEAN CELL VOLUME 90.8 fl (80.0-105.0); MEAN CORPUSCULAR HEMOGLOBIN 29.2 pg (25.0-35.0); MEAN CORPUSCULAR HGB CONC 32.1 g/dl (31.0-37.0); MEAN PLATELET VOLUME 9.8 fl (7.0-11.0); MONO # 0.6 (0.1-0.6); WHITE BLOOD COUNT 3.1 10^3/ul (4.5-11.0)
[2017-01-22 11:37] LABS: ALB/GLOB RATIO 1.5 (1.1-1.8); ALKALINE PHOSPHATASE 130 U/L (38-133); ALT/SGPT 39 U/L (7-56); AST/SGOT 21 U/L (15-39); BILIRUBIN,TOTAL 0.5 mg/dL (0.2-1.3); BLOOD UREA NITROGEN 16 mg/dL (7-21); CALCIUM 9.2 mg/dL (8.4-10.5); CARBON DIOXIDE 25 mmol/L (21-33); CHLORIDE 107 mmol/L (98-107); GFR AFRICAN-AMERICAN > 60; GLUCOSE,RANDOM 104 mg/dL (70-110); POTASSIUM 3.5 mmol/L (3.6-5.0); SODIUM 142 mmol/L (132-148); TOTAL PROTEIN 6.1 g/dL (5.8-8.3)
[2017-01-22 11:54] LABS: TROPONIN I < 0.01 ng/mL
[2017-01-22] MEDS ORDERED: cefTRIAXone 1 gm 1 GM/100 ML BAG IV STA (12:07)
[2017-01-22] MEDS ORDERED: Azithromycin 500MG/NS 250ml 500 MG/250 ML BAG IV STA (12:07)
[2017-01-22 12:13] LABS: INR 1.18 (0.93-1.08); PARTIAL THROMBOPLASTIN TIME 40.6 Seconds (23.7-30.8)
[2017-01-22] MEDS ORDERED: Levalbuterol 0.63 MG/3 ML Inhal Soln UD IH PRN (15:42)
--- NOTE | 2017-01-22 17:05 | CARD ---
APPROVED REPORT EKG Measurement Heart [id number] <Conclusion> Normal sinus rhythm Rightward axis Nonspecific T wave abnormality Abnormal ECG
[2017-01-22] MEDS: Potassium Chloride 10 mEq ER Tab PO SCH (18:08)
[2017-01-22] MEDS: Sildenafil 20 MG TAB PO SCH (18:09)
[2017-01-22 18:20] VITALS: RESP 20
[2017-01-22] MEDS ORDERED: Pneumococcal 23-Valent Vaccine IM ONE (18:20)
[2017-01-22] MEDS: MethylPREDNISolone 40 mg Vial IVP SCH (22:08)
--- NOTE | 2017-01-23 03:43 | HP ---
HISTORY OF PRESENT ILLNESS: The patient is 61-year-old female, history of right cardiomyopathy, severe pulmonary hypertension, COPD, and coronary artery diseases, and who came to emergency room by ambulance after she developed shortness of breath at home this morning. She checked her pulse oximeter, which showed oxygen saturations in upper 70s and the patient was advised by her oncologist to come to emergency room for evaluation. She denied any chest pain, fever, heart palpitation. She has an exertional dyspnea. She is on oxygen continuously at home. 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 PRESENT MEDICATIONS: Keppra, Cardizem, sildenafil, Dilantin, omeprazole, gabapentin, Lipitor, atenolol, amiodarone. ALLERGIES: THE PATIENT HAS KNOWN ALLERGIES TO SYED, BUT NO ALLERGIES TO MEDICATION. FAMILY HISTORY: Significant for cardiac problems and hypertension. SOCIAL HISTORY: The patient is ex-smoker, she quit smoking 8 months ago. The patient has history of smoking 1 to 2 packs per day for the past 4 years. The patient denies alcohol or drug use. The patient is . She lives with her family. She is independent with activities of daily living, but uses oxygen daily. REVIEW OF SYSTEMS: She denies any fever, but complaints of loss of appetite for couple days. She denies any weight loss. She denies any sore throat or dysphagia. The patient complains of chronic productive cough, complains of exertional dyspnea and occasional wheezing. The patient denies any heart palpitation, diaphoresis, or chest pain. She denies epigastric pain, nausea, or vomiting. She is complaining of recent loose stools, but no abdominal pain. The patient denies any dysuria, hematuria, flank pain. The patient denies any dizziness, blurry vision, weakness or tremor. The patient denies any depressed mood, suicidal thoughts, but complaints being anxious. PHYSICAL EXAMINATION: VITAL SIGNS: Shows temperature 97, pulse 95 regular, blood pressure 134/93, and respiratory rate 20, oxygen saturation was 94% on nasal cannula. The patient was alert, awake, oriented, in no acute form of distress during evaluation. HEENT: Head was normocephalic and atraumatic. Eyes with pupils are reactive to light. No jaundice and oral mucosa was moist. NECK: Supple. No neck masses. No JVD. LUNGS: With decrease breath sounds, crackles in the base, more so on the left lower side. HEART: Regular rhythm and rate. ABDOMEN: Soft, nontender, nondistended. EXTREMITIES: With no edema. NEUROLOGIC: Showed alert, awake, oriented person with no sensory or motor deficits. DIAGNOSTIC TESTS: CBC with WBC 3.1, hemoglobin 11.4, hematocrit 35.5, platelet count 232. Chemistry showed a sodium 142, potassium 3.5, renal function normal with BUN 16, and creatinine 1. Liver enzymes normal. Troponin level was normal. BNP was high at 8000. Chest x ray showed possible minimal patchy infiltration in the right lung base. EKG showed normal sinus rhythm, right axis deviation with some nonspecific ST-T changes. ASSESSMENT: 1. A 61-year old female with a right cardiomyopathy, pulmonary hypertension with elevated BNP, probably with decompensated congestive heart failure, acute and chronic. 2. Probable right lung infiltration but clinically not septic. 3. Chronic obstructive pulmonary disease. 4. Hypokalemia. 5. Leukopenia. 6. Small cell nonresectable left lung cancer. PLAN OF TREATMENT: The patient was admitted to telemetry treated with IV Lasix, oxygen, continued on beta-parrish, Cardizem, and chronic antiseizure medications Keppra and Dilantin. The patient was maintained on Solu-Medrol 20 mg twice a day, and nebulizer treatment. Jewel Gauger was called and consulted. We will monitor closely. I will repeat the chest x ray and we will await blood culture and I will do stool for C. diff due to recurrent loose stool. Keira Keith MD MTDD
[2017-01-23] MEDS: Pantoprazole 40 mg EC Tab PO SCH (06:10)
[2017-01-23 07:22] LABS: HEMATOCRIT 35.1 % (36.0-48.0); MEAN CELL VOLUME 91.4 fl (80.0-105.0); MEAN CORPUSCULAR HEMOGLOBIN 28.6 pg (25.0-35.0); MEAN CORPUSCULAR HGB CONC 31.3 g/dl (31.0-37.0); MEAN PLATELET VOLUME 9.6 fl (7.0-11.0); RED CELL DISTRIBUTION WIDTH 16.1 % (11.5-14.5)
[2017-01-23 07:37] LABS: ALB/GLOB RATIO 1.5 (1.1-1.8); ALKALINE PHOSPHATASE 118 U/L (38-133); ALT/SGPT 33 U/L (7-56); AST/SGOT 16 U/L (15-39); BILIRUBIN,TOTAL 0.2 mg/dL (0.2-1.3); BLOOD UREA NITROGEN 17 mg/dL (7-21); CALCIUM 8.8 mg/dL (8.4-10.5); CARBON DIOXIDE 28 mmol/L (21-33); CHLORIDE 106 mmol/L (98-107); GFR AFRICAN-AMERICAN > 60; GLUCOSE,RANDOM 115 mg/dL (70-110); SODIUM 144 mmol/L (132-148); TOTAL PROTEIN 5.8 g/dL (5.8-8.3)
[2017-01-23] MEDS: Potassium Chloride 10 mEq ER Tab PO SCH (08:26)
--- NOTE | 2017-01-23 09:04 | RAD ---
HISTORY: cough, COPD, follow up right lung infiltration? COMPARISON: 01/22/2017 TECHNIQUE: Chest PA and lateral FINDINGS: LUNGS: No pulmonary infiltrate. Previous right basilar opacity has resolved. PLEURA: No significant pleural effusion identified. No pneumothorax apparent. CARDIOVASCULAR: Normal heart size. Right central venous infusion port. No congestive change. OSSEOUS STRUCTURES: No significant abnormalities. VISUALIZED UPPER ABDOMEN: Normal. OTHER FINDINGS: None. IMPRESSION: No infiltrate. Resolved right basilar opacity.
[2017-01-23] MEDS: MethylPREDNISolone 40 mg Vial IVP SCH ×2 (09:51→21:26)
[2017-01-23] MEDS: Sildenafil 20 MG TAB PO SCH ×2 (09:53→18:49)
--- NOTE | 2017-01-23 11:23 | CON ---
DATE: 01/22/2017 REFERRING PHYSICIAN: Keira Keith MD REASON FOR CONSULT: Chronic obstructive lung disease, obstructive sleep apnea syndrome, unresectable lung cancer. HISTORY OF PRESENT ILLNESS: This is a 61-year-old female with unresectable lung cancer, been on radiation and chemotherapy, obstructive lung disease, cardiomyopathy with pulmonary hypertension, right heart failure, sleep apnea syndrome, came into the ER because of increased cough and shortness of breath. According to the patient, she was out and ate, which exacerbated her COPD. No hemoptysis or emesis. No hematuria. No diarrhea reported. PAST MEDICAL HISTORY: Chronic obstructive lung disease and resectable lung cancer, been on chemo and radiation therapy. History of pulmonary hypertension, peripheral vascular disease, sleep apnea syndrome. ALLERGIES: NO KNOWN MEDICATION ALLERGIES. SHE IS ALLERGIC TO SYED THOUGH. FAMILY HISTORY: Positive for hypertension and heart disease. SOCIAL HISTORY: Stopped smoking recently. Denies any alcohol use. MEDICATIONS: She is on aspirin 81 mg daily, Cardizem 30 mg three times a day, amiodarone 200 mg daily, Dilantin 200 mg at bedtime, Dilantin 100 mg in the morning, Keppra 500 mg twice a day, potassium 10 mEq daily, Lasix 20 mg twice a day, Protonix 40 mg daily, Revatio 20 mg twice a day, Solu-Medrol 20 mg twice a day, Tenormin 12.5 mg daily, Xopenex inhaler q. 6 hours. REVIEW OF SYSTEMS: No headache. No rhinitis. Has cough and shortness of breath. No chest pain. No nausea, no vomiting, no diarrhea, no leg pain or leg swelling. OBJECTIVE: GENERAL: In no acute distress. VITAL SIGNS: Temperature is 98, heart rate is 95, respiratory rate is 20, blood pressure 105/71 and pulse ox 98% on nasal cannula. HEENT: Moist mucous membrane. Crowded airway. Mallampati score is 4. NECK: Supple. No JVD. LUNGS: Prolonged expiratory phase with some wheezing. HEART: S1 and S2. Irregular. ABDOMEN: Soft and nontender. No organomegaly. EXTREMITIES: There is no edema. NEUROLOGIC: Awake, alert, follows simple commands. LABORATORY DATA: Shows hemoglobin 11.4, hematocrit 35.5, WBC 3.1, platelet count is 332. INR 1.18, PTT 41. Sodium 142, potassium 3.5, chloride 107, bicarbonate 25, BUN 16, creatinine 1.0, glucose is 104, calcium is 9.2, AST 21, ALT 39, alkaline phosphatase 130. Troponin less than 0.01. ProBNP 8030. Albumin is 3.7. Microbiology: Blood culture has been negative. Chest x-ray done in ER today shows minimal patchy infiltrate in the right lung base. IMPRESSION AND PLAN: Right lower lobe infiltrate, obstructive lung disease, severe pulmonary hypertension, unresectable lung cancer been on chemo and radiation, paroxysmal atrial fibrillation. I agree with the present management. Continue bronchodilator, antibiotics, diuretics, pulmonary vasodilator. We will place on CPAP while sleeping. Agree with diuretics. Followup labs in the morning. Thank you, I will follow with you. Serenity Martinez MD
--- NOTE | 2017-01-23 12:37 | PN ---
DATE: SUBJECTIVE: The patient was admitted for increased shortness of breath and hypoxia and found to have elevated BNP. The patient is feeling better. The patient denies significant shortness of breath or chest pain. She has chronic productive cough. Denies any change of sputum color. Her appetite is good. She denies any diarrhea today. PHYSICAL EXAMINATION GENERAL: She is comfortable in bed, alert, awake and oriented. VITAL SIGNS: Stable. Temperature is 98, pulse is 76 and regular, blood pressure is 107/60, respiratory rate is 20 and oxygen saturation is 90% this morning. HEENT: Head is normocephalic and atraumatic. Oral mucosa is moist. NECK: Supple. HEART: With regular rhythm and rate of 70 per minute. LUNGS: With decreased breath sounds. Some nonspecific crackles in the left lower lung. No rales or wheezing. ABDOMEN: Soft, nontender, and nondistended. EXTREMITIES: With no edema. LABORATORY DATA: Significant diagnostic tests; CBC is stable with WBC of 3 and hemoglobin of 11. Chemistry is normal with improved potassium. IMAGING DATA: Repeated chest x-ray shows no active disease. The right opacity is seen on chest x-ray yesterday and resolved. ASSESSMENT: 1. Right cardiomyopathy with pulmonary hypertension and acute on chronic congestive heart failure, clinically improved. 2. Chronic obstructive pulmonary disease. 3. Chronic hypoxia. 4. Leukopenia secondary to chemotherapy. 5. Small cell left lung cancer. PLAN OF TREATMENT: Continue one extra day of IV furosemide with close monitoring of blood pressure. The patient tends to have hypotension. We will continue her chronic medications. I will add Brovana for her cough and COPD. We will monitor heart rate. Keira Keith MD MTDMarissa
--- NOTE | 2017-01-23 13:35 | CP.PCM.CON ---
<Dannie Cazares - Last Filed: 01/23/17 13:29> History of Present Illness - History of Present Illness History of Present Illness: Heme/Onc Consult Note for Dr Gomez: 61 F with pmh of CHF, pulm HTN, COPD, CAD, clinically advanced non small cell lung ca treated with Alimpta who presented with acute onset shortness of breath. Pt states that she fel very short of breath at home and she checked her O2 sat which was in the 70's. She called Dr Gomez which recommended her coming to the hospital. She denies any chest pain or palpitations. She states the shotness of breath is worse during ambulation. No other complaints. Denies any pain at this time. Denies any f/c, sob, cp, abd pain, n/v/d. PMH: CHF, pulm HTN, COPD, CAD, clinically advanced non small cell lung ca treated with Alimpta Med: refer to [facility] ALL: to diallo SH: Former smoker of many years, denies any drinking or drugs FH: significant for heart dx Review of Systems - Review of Systems All systems: reviewed and no additional remarkable complaints except Past Patient History - Infectious Disease Hx of Infectious Diseases: None - Tetanus Immunizations Tetanus Immunization: Unknown - Past Medical History & Family History Past Medical History?: Yes - Past Social History Smoking Status: Former Smoker - CARDIAC Hx Cardiac Disorders: Yes (SVT) Hx Cardia Arrhythmia: Yes Hx Circulatory Problems: Yes Hx Congestive Heart Failure: Yes Hx Hypertension: Yes - PULMONARY Hx Respiratory Disorders: Yes (SMOKED CIGARETTES QUIT- < PPD) Hx Chronic Obstructive Pulmonary Disease (COPD): Yes Hx Emphysema: Yes Other/Comment: Left Lung CA - NEUROLOGICAL Hx Neurological Disorder: Yes Hx Dizziness: Yes - HEENT Hx HEENT Problems: Yes (eyeglasses) Hx Blind: No Hx Cataracts: No Hx Deafness: Yes (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 ear) Hx Epistaxis: No Hx Glaucoma: No Hx Macular Degeneration: No Other/Comment: ringing in ears - RENAL Hx Chronic Kidney Disease: No - ENDOCRINE/METABOLIC Hx Endocrine Disorders: No - HEMATOLOGICAL/ONCOLOGICAL Hx Blood Disorders: Yes Hx Anemia: Yes (blood transfusion) Hx Cancer: Yes (lung dx 04/2016) Hx Chemotherapy: Yes (and radiation) Other/Comment: uterine ca over yrs ago - INTEGUMENTARY Hx Dermatological Problems: No Hx Basil Cell: No Hx Eczema: No Hx Melanoma: No Hx Psoriasis: No Hx Squamous Cell: No Other/Comment: 01-22-17 BILATERAL LEG EDEMA +1.LINEAR WHITE LINE ALONG LEG ANT THIGH.BIRTHMARK PER PT. - MUSCULOSKELETAL/RHEUMATOLOGICAL Hx Musculoskeletal Disorders: No Hx Falls: Yes - GASTROINTESTINAL Hx Gastrointestinal Disorders: Yes (reflux/pancreatitis) - GENITOURINARY/GYNECOLOGICAL Hx Genitourinary Disorders: Yes (cervical,uterine ca) Other/Comment: hx fibroids had hyst due to fibroids - PSYCHIATRIC Hx Psychophysiologic Disorder: Yes Hx Anxiety: Yes Hx Substance Use: No - SURGICAL HISTORY Hx Surgeries: Yes (CARDIAC STENTS.) Hx Cholecystectomy: Yes Hx Coronary Stent: Yes Hx Hysterectomy: Yes Other/Comment: polypectomy, r cw pac - ANESTHESIA Hx Anesthesia Reactions: No Hx Malignant Hyperthermia: No Meds Allergies/Adverse Reactions: Allergies Allergy/AdvReac Type Severity Reaction Status Date / Time diallo Allergy RASH Verified 01/22/17 10:43 - Medications Medications: Current Medications Amiodarone HCl (Cordarone) 200 mg PO DAILY [facility] Last Admin: 01/23/17 09:53 Dose: 200 mg Arformoterol Tartrate (Brovana) 15 mcg IH [id number] [facility] Aspirin (Aspirin Chewable) 81 mg PO DAILY [facility] Last Admin: 01/23/17 09:53 Dose: 81 mg Atenolol (Tenormin) 12.5 mg PO DAILY [facility] Last Admin: 01/23/17 09:49 Dose: 12.5 mg Benzonatate (Tessalon Perles) 100 mg PO TID [facility] Last Admin: 01/23/17 09:54 Dose: 100 mg Diltiazem HCl (Cardizem) 30 mg PO TID [facility] Last Admin: 01/23/17 09:54 Dose: 30 mg Doxycycline Hyclate (Doryx) 100 mg PO Q12 [facility] PRN Reason: Protocol Last Admin: 01/23/17 09:49 Dose: 100 mg Furosemide (Lasix) 20 mg IVP Q12 [facility] Last Admin: 01/23/17 09:51 Dose: 20 mg Ibuprofen (Motrin Tab) 400 mg PO Q6H PRN PRN Reason: Pain, moderate (4-7) Levalbuterol HCl (Xopenex) 0.63 mg IH [id number] PRN PRN Reason: Shortness of Breath Levetiracetam (Keppra) 500 mg PO BID [facility] Last Admin: 01/23/17 09:53 Dose: 500 mg Methylprednisolone (Solu-Medrol) 20 mg IVP Q12 [facility] Last Admin: 01/23/17 09:51 Dose: 20 mg Pantoprazole Sodium (Protonix Ec Tab) 40 mg PO 0600 [facility] Last Admin: 01/23/17 06:10 Dose: 40 mg Phenytoin Sodium (Dilantin) 100 mg PO QAM [facility] Last Admin: 01/23/17 09:55 Dose: 100 mg Phenytoin Sodium (Dilantin) 200 mg PO HS [facility] Last Admin: 01/22/17 22:07 Dose: 200 mg Potassium Chloride (Klor-Con 10) 10 meq PO BRK [facility] Last Admin: 01/23/17 08:26 Dose: 10 meq Sildenafil Citrate (Revatio) 20 mg PO BID [facility] Last Admin: 01/23/17 09:53 Dose: 20 mg Results - Vital Signs Recent Vital Signs: Last Vital Signs Temp 97.8 F 01/23/17 12:00 Pulse 77 01/23/17 12:00 Resp 20 01/23/17 12:00 BP 101/69 01/23/17 12:00 Pulse Ox 98 01/22/17 13:00 - Labs Result Diagrams: 01/23/17 07:00 01/23/17 07:00 Labs: Laboratory Results - last 24 hr 01/23/17 01/23/17 07:00 07:00 WBC 3.0 L RBC 3.84 Hgb 11.0 L Hct 35.1 L MCV 91.4 MCH 28.6 MCHC 31.3 RDW 16.1 H Plt Count 340 MPV 9.6 Sodium 144 Potassium 4.0 Chloride 106 Carbon Dioxide 28 Anion Gap 14 BUN 17 Creatinine 1.1 Est GFR ( Amer) > 60 Est GFR (Non-Af Amer) 50 Random Glucose 115 H Calcium 8.8 Total Bilirubin 0.2 AST 16 ALT 33 Alkaline Phosphatase 118 Total Protein 5.8 Albumin 3.5 Globulin 2.3 Albumin/Globulin Ratio 1.5 Assessment & Plan - Assessment and Plan (Free Text) Assessment: 61 F with pmh of CHF, pulm HTN, COPD, CAD, clinically advanced non small cell lung ca treated with Alimpta who presented with acute onset shortness of breath. - Cont current medical management - BNP 8030, Trops x 1 negative - Cont IV lasix, Duonebs, and Solumedrol - O2 as needed - F/u Cardiology consult and recs - F/u Pulm consult and recs - Cont Amio, Cardizem and aspirin - Hb 11 stable at this time - Physical therapy Case and plan was reviewed and discussed with Dr Gomez. <Michelle Gomez P - Last Filed: 01/24/17 23:05> Results - Vital Signs Recent Vital Signs: Last Vital Signs Temp 98.1 F 01/24/17 12:00 Pulse 73 01/24/17 15:16 Resp 20 01/24/17 12:00 BP 100/70 01/24/17 15:16 Pulse Ox 98 01/24/17 06:00 - Labs Result Diagrams: 01/24/17 06:15 01/24/17 06:15 Labs: Laboratory Results - last 24 hr 01/24/17 01/24/17 06:15 06:15 WBC 5.2 D RBC 3.97 Hgb 11.2 L Hct 36.5 MCV 91.9 MCH 28.2 MCHC 30.7 L RDW 16.1 H Plt Count 325 MPV 9.6 Sodium 141 Potassium 3.9 Chloride 102 Carbon Dioxide 30 Anion Gap 13 BUN 23 H Creatinine 1.1 Est GFR ( Amer) > 60 Est GFR (Non-Af Amer) 50 Random Glucose 119 H Calcium 8.6 Total Bilirubin 0.2 AST 19 ALT 31 Alkaline Phosphatase 105 Total Protein 5.8 Albumin 3.6 Globulin 2.2 Albumin/Globulin Ratio 1.6 Attending/Attestation - Attestation I have personally seen and examined this patient.: Yes I have fully participated in the care of the patient.: Yes I have reviewed all pertinent clinical information: Yes
--- NOTE | 2017-01-23 14:21 | PQF CHF ---
This form is a permanent part of the medical record Dr. Keith, Your PN describe CHF as acute on chronic. When determined, please specify type of CHF as systolic or diastolic. Clarification of your documentation is requested to better reflect the severity of illness and intensity of treatment of your patient. Indicators present [x] Diagnosis of CHF and/or history of CHF [x] BNP > 200 [x] Imaging Finding of Pulmonary Edema /Pleural Effusions [] Fluid/Volume Overload [] Pitting edema [] Ejection Fraction < 40% (Indicative of Systolic Heart Failure) [] Ejection Fraction > 40% (Indicative of Diastolic Heart Failure) [x] Dyspnea / Orthopenea / Paroxysmal Nocturnal Dyspnea [x] Other: treatment with lasix Location in the medical record that reflects the above clinical findings: [H+P, laboratory tests] Treatment Provided: [Furosemide, oxygen, atenolol,] PHYSICIAN'S RESPONSE Based on your medical judgment of the clinical indicators outlined above, are you treating this patient for a known or suspected: [] Acute CHF [] Systolic [] Diastolic [] Combined [] Chronic CHF [] Systolic [] Diastolic [] Combined [X] Acute on Chronic CHF []Systolic [X] Diastolic [] Combined [] CHF due hypertension [] Acute systolic []Chronic systolic [] Acute/ chronic systolic [] Other, please indicate: [] [] If Unable to Determine, please check the box, sign and date. Present On Admission (POA) Indicator: [X] Present at the time of admission [] Not present at the time of admission [] Clinically Undetermined In responding to this query, please exercise your independent professional judgment. The fact that a question is asked does not imply that any particular answer is desired or expected. Thank you for your clarification on this documentation. If you have any questions please call:[ ] * Thank you, [ ]Rose Watson [facility] #[id number] community support associate CHRISTIANO
[2017-01-23] MEDS: Arformoterol 15 mcg/2 ml Inh Sol IH SCH (19:35)
--- NOTE | 2017-01-23 22:48 | PN ---
PULMONARY PROGRESS NOTE REFERRING PHYSICIAN: Keira Keith MD SUBJECTIVE: Sitting up in the bed. Feels much better. Decreased shortness of breath. No nausea, no vomiting, no diarrhea. No leg pain or leg swelling. OBJECTIVE: GENERAL: In no acute distress. VITAL SIGNS: Temperature is 98, heart rate 72, respiratory rate 20, blood pressure 96/68, pulse ox 90% on 3 L nasal cannula. HEENT: Moist mucous membrane. Crowded airway. Mallampati score is IV. NECK: Supple. No JVD. LUNGS: Has few crackles. Prolonged expiratory phase. HEART: S1 and S2. ABDOMEN: Soft, nontender, no organomegaly. EXTREMITIES: There is no edema. NEUROLOGICAL: Awake and alert, follows simple commands. MEDICATIONS: She is on aspirin 81 mg daily, Brovana 15 mcg inhaled twice a day, Cardizem 30 mg 3 times a day, amiodarone 200 mg daily, Dilantin 200 mg at bedtime, also Dilantin 100 mg in the morning, doxycycline 100 mg twice a day, Keppra 500 mg twice a day, potassium 10 mEq daily, Lasix is 20 mg twice a day, Motrin 400 mg q.6 hours p.r.n., Protonix 40 mg daily, Revatio 20 mg q.12 hours, Solu-Medrol 20 mg q.12 hours, Tenormin 12.5 mg daily, Tessalon Perles 3 times a day, Xopenex inhaler q.6 hours p.r.n. LABORATORY DATA: Shows hemoglobin 11, hematocrit 35.1, WBC of 3, platelet is 340, INR 1.18. Sodium 144, potassium 4, chloride 106, bicarbonate 28, BUN 17, creatinine 1.1, glucose is 115, calcium is 8.3. AST 16, ALT 33, alk phos is 118, albumin is 3.5, procalcitonin is less than 0.05. Microbiology, blood culture has been negative. Chest x-ray done today shows no infiltrate, resolved right base opacity. IMPRESSION AND PLAN: Chronic obstructive lung disease, severe pulmonary hypertension, unresectable lung cancer, been on chemoradiation therapy, paroxysmal atrial fibrillation, sleep apnea syndrome. Continue continuous positive airway pressure while sleeping. IV and inhaled bronchodilator. Gastric prophylaxis. Deep venous thrombosis prophylaxis. Thank you and we will follow with you. Serenity Martinez MD [facility] # [id number]
--- NOTE | 2017-01-24 04:39 | CON ---
DATE: 01/23/2017 Patient's room 275, bed 2. REASON FOR CONSULTATION: Shortness of breath, coronary artery disease, history of stent insertion. HISTORY OF PRESENT ILLNESS: The patient is a 61-year-old female admitted, stating that she is having shortness of breath, cough, white expectoration since 2 days duration. She denies any chest pain or palpitation. Patient known to have emphysema, also has a small cell CA of the lung which is inoperable. Patient had stent put in RCA, 07/15/2016. A bare metal stent was placed because there was question that patient can take intermediate card tender Plavix if she needed surgery for the lung CA. PAST MEDICAL HISTORY: Positive for COPD, coronary artery disease, stent insertion at RCA 07/15/2006, bare metal stent, SVT, paroxysmal atrial fibrillation, mitral regurgitation, and tricuspid regurgitation. Patient's cardiac workup; patient had echocardiogram 07/11/2016, which showed ejection fraction of 65-70%, dilated right ventricle and LA, right ventricle severely dilated, RV systolic function severely reduced, severe mitral regurg, severe tricuspid regurg, RV systolic pressure 123 mmHg. Patient has history of severe pulmonary hypertension. Patient has cardiac catheterization 07/15/2006, which revealed normal LV function, ejection fraction about 55%, left main free of any significant disease, bifurcation to LAD and circumflex. LAD is without any significant disease circumflex, there is diffuse 40-50% narrowing, RCA 80-90% blockage for which a bare metal stent was placed. Right heart catheterization revealed RA pressure of 10-12, RV pressure 60/10, PA pressure was 60/27, mean PA pressure of 38 mmHg. Pulmonary capillary wedge pressure was 13. Cardiac output 3.83. Patient had cardiac catheterization done after discontinuing Primacor for 14 hours and bare metal stent was inserted in RCA at the same time. PERSONAL HISTORY: The patient used to smoke about half pack a day and she says that she had stopped about 5 months and she stopped her drinking since 2005, used to drink socially. FAMILY HISTORY: Sister has CAD, father of lung carcinoma, mother of breast carcinoma. ALLERGIES: PATIENT DENIED ANY ALLERGIES. MEDICATIONS AT HOME: Patient on diltiazem 30 mg t.i.d., amiodarone 200 daily, atenolol 12.5 mg b.i.d., aspirin 81 mg daily, Dilantin and Keppra, Revatio 20 mg b.i.d. PHYSICAL EXAMINATION VITAL SIGNS: Blood pressure 105/68, respiration 20, pulse 72, temperature 98. HEENT: Head is normocephalic. Eyes, pupils normal. Conjunctivae normal. NECK: JVP low. Carotids equal. THORAX: AP diameter normal. LUNGS: No rales, slight expiratory wheezing. CARDIOVASCULAR: S1 and S2. Systolic murmur, no rub. ABDOMEN: Protuberant, no organomegaly. EXTREMITIES: Patient states that when she came in, she had some edema on the leg, but now patient does not have any edema at present. LABORATORY DATA: WBC 3.0, hemoglobin 11.0, hematocrit 35.1, platelet 340, sodium 144, potassium 4.0, BUN 17, creatinine 1.1, random glucose 115, AST ALT normal, total protein and bilirubin normal. Chest x-ray does not show any infiltrate or congestive changes. EKG showed regular sinus rhythm, nonspecific ST-T changes. DIAGNOSES: 1. Shortness of breath, probably on the basis of exacerbation of chronic obstructive pulmonary disease. 2. Respiratory tract infection. 3. Coronary artery disease. 4. History of stent insertion in RCA in 07/2016. 5. Small cell carcinoma of the lung, nonresectable. 6. History of supraventricular tachycardia. 7. History of paroxysmal atrial fibrillation in the past. 6. Pulmonary hypertension. PLAN: The patient is on aspirin 81 mg daily, Cardizem 30 mg t.i.d., amiodarone 200 daily, Dilantin 100 mg p.o. q.a.m., Dilantin 200 mg p.o. at bedtime, Doryx 100 mg p.o. q. 12 hours, Keppra 500 mg b.i.d., potassium 10 mEq p.o. daily, furosemide 20 mg IV q. 12 hours, Revatio 20 mg p.o. b.id., Solu-Medrol 20 mg IV q. 12 hours, atenolol 12.5 mg p.o. daily, Xopenex hand-held nebulizer therapy. Patient's troponin is negative; NT-proBNP 8030. We will follow. Serenity Cartwright MD
[2017-01-24] MEDS: Pantoprazole 40 mg EC Tab PO SCH (06:03)
[2017-01-24 06:55] VITALS: O2SAT 98
[2017-01-24 07:07] LABS: ALB/GLOB RATIO 1.6 (1.1-1.8); ALKALINE PHOSPHATASE 105 U/L (38-133); ALT/SGPT 31 U/L (7-56); AST/SGOT 19 U/L (15-39); BILIRUBIN,TOTAL 0.2 mg/dL (0.2-1.3); BLOOD UREA NITROGEN 23 mg/dL (7-21); CALCIUM 8.6 mg/dL (8.4-10.5); CARBON DIOXIDE 30 mmol/L (21-33); CHLORIDE 102 mmol/L (98-107); GFR AFRICAN-AMERICAN > 60; GLUCOSE,RANDOM 119 mg/dL (70-110); HEMATOCRIT 36.5 % (36.0-48.0); MEAN CELL VOLUME 91.9 fl (80.0-105.0); MEAN CORPUSCULAR HEMOGLOBIN 28.2 pg (25.0-35.0); MEAN CORPUSCULAR HGB CONC 30.7 g/dl (31.0-37.0); MEAN PLATELET VOLUME 9.6 fl (7.0-11.0); POTASSIUM 3.9 mmol/L (3.6-5.0); RED CELL DISTRIBUTION WIDTH 16.1 % (11.5-14.5); SODIUM 141 mmol/L (132-148); TOTAL PROTEIN 5.8 g/dL (5.8-8.3); WHITE BLOOD COUNT 5.2 10^3/ul (4.5-11.0)
[2017-01-24] MEDS: Arformoterol 15 mcg/2 ml Inh Sol IH SCH (07:18)
[2017-01-24] MEDS: Potassium Chloride 10 mEq ER Tab PO SCH (08:59)
[2017-01-24] MEDS: MethylPREDNISolone 40 mg Vial IVP SCH (09:09)
[2017-01-24] MEDS: Sildenafil 20 MG TAB PO SCH (11:30)
[2017-01-24 12:02] VITALS: TEMP 98.1
[2017-01-24 15:17] VITALS: BP 100/70; PULSE 73
--- NOTE | 2017-01-24 15:20 | CP.PCM.PN ---
<Dannie Cazares - Last Filed: 01/24/17 15:16> Subjective - Date & Time of Evaluation Date of Evaluation: 01/24/17 Time of Evaluation: 07:40 - Subjective Subjective: Heme/onc note for Dr Gomez: Pt seen and examined at bedside. No acute events overnight. Pt states that she has sob but it is much improved from prior. No chest pain. Denies any f/c, n/v /d, palpitations, urinary or bm changes. Objective - Vital Signs/Intake and Output Vital Signs (last 24 hours): Temp Pulse Resp BP Pulse Ox 98.1 F 80 20 98/60 L 98 01/24/17 12:00 01/24/17 12:00 01/24/17 12:00 01/24/17 12:00 01/24/17 06:00 Intake and Output: 01/24/17 01/24/17 06:59 18:59 Intake Total 520 Balance 520 - Medications Medications: Current Medications Amiodarone HCl (Cordarone) 200 mg PO DAILY [facility] Last Admin: 01/24/17 11:20 Dose: Not Given Arformoterol Tartrate (Brovana) 15 mcg IH [id number] [facility] Last Admin: 01/24/17 07:18 Dose: 15 mcg Aspirin (Aspirin Chewable) 81 mg PO DAILY [facility] Last Admin: 01/24/17 09:09 Dose: 81 mg Atenolol (Tenormin) 12.5 mg PO DAILY [facility] Last Admin: 01/24/17 11:21 Dose: Not Given Benzonatate (Tessalon Perles) 100 mg PO TID [facility] Last Admin: 01/24/17 09:09 Dose: 100 mg Diltiazem HCl (Cardizem) 30 mg PO TID [facility] Last Admin: 01/24/17 11:20 Dose: Not Given Doxycycline Hyclate (Doryx) 100 mg PO Q12 [facility] PRN Reason: Protocol Last Admin: 01/24/17 09:09 Dose: 100 mg Furosemide (Lasix) 20 mg IVP Q12 [facility] Last Admin: 01/24/17 11:21 Dose: Not Given Ibuprofen (Motrin Tab) 400 mg PO Q6H PRN PRN Reason: Pain, moderate (4-7) Levalbuterol HCl (Xopenex) 0.63 mg IH [id number] PRN PRN Reason: Shortness of Breath Levetiracetam (Keppra) 500 mg PO BID [facility] Last Admin: 01/24/17 09:09 Dose: 500 mg Methylprednisolone (Solu-Medrol) 20 mg IVP Q12 [facility] Last Admin: 01/24/17 09:09 Dose: 20 mg Pantoprazole Sodium (Protonix Ec Tab) 40 mg PO 0600 [facility] Last Admin: 01/24/17 06:03 Dose: 40 mg Phenytoin Sodium (Dilantin) 100 mg PO QAM [facility] Last Admin: 01/24/17 09:09 Dose: 100 mg Phenytoin Sodium (Dilantin) 200 mg PO HS [facility] Last Admin: 01/23/17 21:29 Dose: 200 mg Potassium Chloride (Klor-Con 10) 10 meq PO BRK [facility] Last Admin: 01/24/17 08:59 Dose: 10 meq Sildenafil Citrate (Revatio) 20 mg PO BID [facility] Last Admin: 01/24/17 11:30 Dose: 20 mg - Labs Labs: 01/24/17 06:15 01/24/17 06:15 PT 12.7 Seconds (9.9-11.8) H 01/22/17 11:20 INR 1.18 (0.93-1.08) H 01/22/17 11:20 APTT 40.6 Seconds (23.7-30.8) H 01/22/17 11:20 - Constitutional Appears: No Acute Distress - Head Exam Head Exam: ATRAUMATIC, NORMOCEPHALIC - Eye Exam Eye Exam: EOMI, PERRL - ENT Exam ENT Exam: Mucous Membranes Moist - Respiratory Exam Respiratory Exam: Clear to Ausculation Bilateral. absent: Rales, Wheezes - Cardiovascular Exam Cardiovascular Exam: REGULAR RHYTHM, +S1, +S2 - GI/Abdominal Exam GI & Abdominal Exam: Soft. absent: Distended, Tenderness - Neurological Exam Neurological Exam: Alert, Awake, Oriented x3 - Skin Skin Exam: Dry, Intact, Warm Assessment and Plan - Assessment and Plan (Free Text) Assessment: 61 F with pmh of CHF, pulm HTN, COPD, CAD, clinically advanced non small cell lung ca treated with Alimpta who presented with acute onset shortness of breath. - Cont current medical management - To follow up for PET/CT scan as an outpatient - To consider more chemo once more stable - BNP 8030, Trops x 1 negative - Cont IV lasix, Duonebs, and Solumedrol - O2 as needed - Cardiology consult appreciate recs - cont current management - F/u Pulm consult and recs - Cont Amio, Cardizem and aspirin - Hb 11.2 stable at this time - Physical therapy Case and plan was reviewed and discussed with Dr Gomez. <Michelle Gomez P - Last Filed: 01/24/17 22:48> Objective - Vital Signs/Intake and Output Vital Signs (last 24 hours): Temp Pulse Resp BP Pulse Ox 98.1 F 73 20 100/70 98 01/24/17 12:00 01/24/17 15:16 01/24/17 12:00 01/24/17 15:16 01/24/17 06:00 - Labs Labs: 01/24/17 06:15 01/24/17 06:15 PT 12.7 Seconds (9.9-11.8) H 01/22/17 11:20 INR 1.18 (0.93-1.08) H 01/22/17 11:20 APTT 40.6 Seconds (23.7-30.8) H 01/22/17 11:20 Attending/Attestation - Attestation I have personally seen and examined this patient.: Yes I have fully participated in the care of the patient.: Yes I have reviewed all pertinent clinical information, including history, physical exam and plan: Yes
--- NOTE | 2017-01-24 17:17 | PN ---
DATE: 01/24/2017 LOCATION: The patient is in room 275, bed 2. REASON FOR CONSULTATION: Followup shortness of breath, coronary artery disease, status post stent insertion. SUBJECTIVE: The patient denies chest pain or palpation, her shortness breath is also improved as compared to admission. PHYSICAL EXAMINATION: VITAL SIGNS: Blood pressure 100/70, respiration 20, pulse 73, temperature 98.1. HEENT: Head is normocephalic. Eyes: Pupils are normal. Conjunctivae normal. NECK: JVP low. Carotids equal. Thorax AP diameter normal. LUNGS: No rales, few wheezing sounds. CARDIOVASCULAR: S1 and S2. ABDOMEN: Protuberant, no organomegaly. EXTREMITIES: There is no clubbing, no cyanosis. Slight edema on the feet, on admission has all cleared up. LABORATORY DATA: WBC 5.2, hemoglobin 11.2, hematocrit 36.5, platelet 325. Sodium 141, potassium 3.9, BUN 23, creatinine 1.1, random sugar 119. Total protein and albumin normal. AST and ALT normal. DIAGNOSES: 1. Shortness of breath, probably on the basis of exacerbation of chronic obstructive pulmonary disease. 2. Respiratory infection. 3. Coronary artery disease, status post stent insertion in RCA in 07/2016. 4. Small cell carcinoma of the lung, nonresectable. 5. History of supraventricular tachycardia. 6. History of paroxysmal atrial fibrillation in the past. 7. Pulmonary hypertension. PLAN: The patient is getting medication including Cardizem 30 mg t.i.d., aspirin 81 mg daily, doxycycline 100 p.o. q. 12 hour, Keppra 500 b.i.d., potassium 10 mEq daily, furosemide 20 mg IV q. 12 hour, Protonix 40 daily, Revatio 20 mg b.i.d., Solu-Medrol 20 mg IV q. 12 hours, atenolol 12.5 p.o. daily, Xopenex hand nebulizer therapy. The patient is continue to improve. We will follow. Serenity Cartwright MD
--- NOTE | 2017-01-25 01:50 | PN ---
PULMONARY PROGRESS NOTE DATE: 01/24/2017 REFERRING PHYSICIAN: Dr. Singh. SUBJECTIVE: The patient is sitting at the side of the bed. Night was unremarkable. Tolerated BiPAP well. Decreased cough and shortness of breath. No nausea or vomiting. No diarrhea. No leg pain or leg swelling. PHYSICAL EXAMINATION: GENERAL: In no acute distress. VITAL SIGNS: Temperature is 98, heart rate 73, respiratory rate 20, blood pressure 100/70 and pulse ox 98% on nasal cannula. HEENT: Small oral cavity. Mallampati score is 4. NECK: Supple. No JVD. LUNGS: Has a prolonged expiratory phase with few crackles. HEART: S1 and S2. ABDOMEN: Soft and nontender. No organomegaly. EXTREMITIES: There is no edema. NEUROLOGICAL: Awake and alert, follows simple commands.. MEDICATIONS: Reviewed. No new changes. LABORATORY DATA: Shows hemoglobin 11.2, hematocrit is 36.5, WBC is 5.2 and platelet is 325. Sodium 141, potassium 3.9, chloride 102, bicarbonate 30, BUN 23, creatinine 1.1, glucose is 119, calcium is 8.6. AST 19, ALT 31, alk phos 105, albumin is 3.6 and procalcitonin less than 0.05. Microbiology; blood cultures have been negative. IMPRESSION AND PLAN: Chronic obstructive lung disease, severe pulmonary hypertension, unresectable lung cancer, been on chemo and radiation therapy, sleep apnea syndrome, admitted with right lower lobe infiltrate with exacerbation of chronic obstructive pulmonary disease, feels is much better, being discharged home, we will taper the steroids, given inhaled bronchodilator, gastric prophylaxis, anticoagulation. The patient encouraged to use continuous airway positive pressure while sleeping. Thank you and we will follow with you. Serenity Martinez MD
--- NOTE | 2017-01-25 08:49 | DS ---
HISTORY OF PRESENT ILLNESS: The patient was admitted for increasing shortness of breath with hypoxia. The patient was admitted to telemetry. She is better this morning. She denies any shortness of breath and significant cough. She has had a good appetite. She is ambulatory. PHYSICAL EXAMINATION: On discharge: VITAL SIGNS: The patient is afebrile, temperature 97.5, pulse 91 and regular, blood pressure 94/61, and respiratory rate 20. Her oxygen saturations 98% on 2 L nasal cannula. GENERAL: The patient is comfortable sleeping in bed, alert, awake, and oriented. HEENT: Head is normocephalic and atraumatic. Oral mucosa is moist. NECK: Supple. LUNGS: Clear to auscultation with residual respiratory finding to left lower lung. HEART: With regular rhythm and rate of 90 per minute. ABDOMEN: Soft, nontender, and nondistended. EXTREMITIES: With no edema. LABORATORY DATA: Her CBC this morning is stable with WBC 5.2 and hemoglobin 11.2. Her chemistry is stable with normal electrolytes and random glucose 119. Her procalcitonin was negative. Her blood cultures were negative. ASSESSMENT: 1. Acute on chronic congestive heart failure with right cardiomyopathy and pulmonary hypertension, clinically improved. 2. Chronic obstructive pulmonary disease. 3. Chronic hypoxia. 4. Small cell left lung cancer. PLAN OF TREATMENT: The patient will be discharged home. Continue heart healthy diet. The patient will be maintained on her chronic medications Keppra, Dilantin, amiodarone, Brovana, aspirin, pantoprazole, Sildenafil, prednisone 10 mg daily, and atenolol. The patient was advised to follow up with primary care doctor in 1 week. The patient also will follow with Dr. Gomez for planned chemotherapy on Friday. Keira Keith MD
== END 2017-01-24 17:43 | disposition home or self-care (01) | DRG 190 ==
LOC: ED 10:24 → ERH 12:14 → 2RSO 13:32
PROVIDERS: ADMIT Family Medicine; ATTEND Family Medicine
PROC: 5A09457 Assistance with Respiratory Ventilation, 24-96 Consecutive Hours, Continuous Positive Airway Pressure (ICD-10-PCS; principal; 2017-01-22)
PROC: 3E0F7GC Introduction of Other Therapeutic Substance into Respiratory Tract, Via Natural or Artificial Opening (ICD-10-PCS; 2017-01-23)
DX: J44.1 Chronic obstructive pulmonary disease with (acute) exacerbation (principal); I50.33 Acute on chronic diastolic (congestive) heart failure; I27.2 Other secondary pulmonary hypertension; D70.1 Agranulocytosis secondary to cancer chemotherapy; I42.9 Cardiomyopathy, unspecified; C34.92 Malignant neoplasm of unspecified part of left bronchus or lung; D72.819 Decreased white blood cell count, unspecified; Z99.81 Dependence on supplemental oxygen; E87.6 Hypokalemia; I73.9 Peripheral vascular disease, unspecified; I25.10 Atherosclerotic heart disease of native coronary artery without angina pectoris; I48.0 Paroxysmal atrial fibrillation; I08.1 Rheumatic disorders of both mitral and tricuspid valves; T45.1X5A Adverse effect of antineoplastic and immunosuppressive drugs, initial encounter; R09.02 Hypoxemia; K21.9 Gastro-esophageal reflux disease without esophagitis; G47.30 Sleep apnea, unspecified; Z79.82 Long term (current) use of aspirin; Z95.5 Presence of coronary angioplasty implant and graft; Z85.42 Personal history of malignant neoplasm of other parts of uterus; Z90.710 Acquired absence of both cervix and uterus; Z87.891 Personal history of nicotine dependence; Z80.1 Family history of malignant neoplasm of trachea, bronchus and lung; Z80.3 Family history of malignant neoplasm of breast; Z82.49 Family history of ischemic heart disease and other diseases of the circulatory system

== ENCOUNTER 2017-01-30 10:22 | Observation (INO) | payer MEDICARE, MEDICAID ==
[2017-01-30 10:22] VITALS: PULSE 82
--- NOTE | 2017-01-30 10:56 | ED PDOC ---
Arrival/HPI - General Chief Complaint: Palpitations Time Seen by Provider: 01/30/17 10:23 Historian: Patient - History of Present Illness Narrative History of Present Illness (Text): 01/30/17 10:23 Aviva Feliciano is a 61 year old female, whose past medical history includes small-cell carcinoma and paroxysmal A Fib, who presents to the emergency department complaining of chest pain and palpitations that started this morning. Patient states that she called her PMD, who advised her to take Amiordarone and Cardizem. Patient came to the emergency department due to persistent symptoms. Patient denies any fevers or any other complaints at this time. PMD: Dr. Syed Time/Duration: 4-6 hours Symptom Onset: Gradual Symptom Course: Unchanged Activities at Onset: Light Context: Home Past Medical History - Provider Review Nursing Documentation Reviewed: Yes - Infectious Disease Hx of Infectious Diseases: None - Tetanus Immunization Tetanus Immunization: Unknown - Reproductive Menopause: Yes - Cardiac Hx Cardiac Disorders: Yes (SVT) Hx Cardiac Arrhythmia: Yes Hx Circulatory Problems: Yes Hx Congestive Heart Failure: Yes Hx Hypertension: Yes - Pulmonary Hx Respiratory Disorders: Yes (SMOKED CIGARETTES QUIT- < PPD) Hx Chronic Obstructive Pulmonary Disease (COPD): Yes Hx Emphysema: Yes Other/Comment: Left Lung CA - Neurological Hx Neurological Disorder: Yes Hx Dizziness: Yes - HEENT Hx HEENT Disorder: Yes (eyeglasses) Hx Blind: No Hx Cataracts: No Hx Deafness: Yes (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 ear) Hx Epistaxis: No Hx Glaucoma: No Hx Macular Degeneration: No Other/Comment: ringing in ears - Renal Hx Renal Disorder: No - Endocrine/Metabolic Hx Endocrine Disorders: No - Hematological/Oncological Hx Blood Disorders: Yes Hx Anemia: Yes (blood transfusion) Hx Cancer: Yes (lung dx 04/2016) Hx Chemotherapy: Yes (and radiation) Other/Comment: uterine ca over yrs ago - Integumentary Hx Dermatological Disorder: No Hx Basal Cell Carcinoma: No Hx Eczema: No Hx Melanoma: No Hx Psoriasis: No Hx Squamous Cell Carcinoma: No Other/Comment: 01-22-17 BILATERAL LEG EDEMA +1.LINEAR WHITE LINE ALONG LEG ANT THIGH.BIRTHMARK PER PT. - Musculoskeletal/Rheumatological Hx Musculoskeletal Disorders: No Hx Falls: Yes - Gastrointestinal Hx Gastrointestinal Disorders: Yes (reflux/pancreatitis) - Genitourinary/Gynecological Hx Genitourinary Disorders: Yes (cervical,uterine ca) Other/Comment: hx fibroids had hyst due to fibroids - Psychiatric Hx Psychophysiologic Disorder: Yes Hx Anxiety: Yes Hx Substance Use: No - Surgical History Hx Cholecystectomy: Yes Hx Coronary Stent: Yes Hx Hysterectomy: Yes Other/Comment: polypectomy, r cw pac - Anesthesia Hx Anesthesia Reactions: No Hx Malignant Hyperthermia: No - Suicidal Assessment Feels Threatened In Home Enviroment: No Family/Social History - Physician Review Nursing Documentation Reviewed: Yes Family/Social History: No Known Family HX Smoking Status: Former Smoker Hx Alcohol Use: Yes (QUIT 2005) Hx Substance Use: No Hx Substance Use Treatment: No Allergies/Home Meds Allergies/Adverse Reactions: Allergies diallo Allergy (Verified 01/22/17 10:43) RASH Home Medications: Home Meds Medication Instructions Recorded Confirmed Folic Acid 1 mg PO DAILY 09/22/16 01/30/17 Omeprazole Magnesium [Prilosec Otc] 20 mg PO DAILY 10/24/16 01/30/17 Montelukast [Singulair] 10 mg PO DAILY 01/22/17 01/30/17 Roflumilast [Daliresp] 500 mcg PO DAILY 01/22/17 01/30/17 diltiaZEM [Diltiazem HCl] 30 mg PO TID 01/22/17 01/30/17 Atenolol [Tenormin] 12.5 mg PO BID 01/30/17 01/30/17 Atorvastatin [Lipitor] 40 mg PO DAILY 01/30/17 01/30/17 Furosemide [Lasix] 20 mg PO DAILY 01/30/17 01/30/17 Gabapentin [Neurontin] 300 mg PO HS 01/30/17 01/30/17 Phenytoin, Extended [Dilantin] 100 mg PO DAILY 01/30/17 01/30/17 Sildenafil [Revatio] 20 mg PO Q8H 01/30/17 01/30/17 diltiaZEM CD [Cardizem CD] 180 mg PO DAILY 01/30/17 01/30/17 methylPREDNISolone [Medrol] 2 tab PO DAILY 01/30/17 01/30/17 Review of Systems - Physician Review All systems were reviewed & negative as marked: Yes - Review of Systems Constitutional: absent: Fevers, Night Sweats Eyes: absent: Vision Changes ENT: absent: Hearing Changes Respiratory: absent: SOB Cardiovascular: Chest Pain, Palpitations Gastrointestinal: absent: Abdominal Pain Genitourinary Female: absent: Dysuria, Frequency Musculoskeletal: absent: Arthralgias, Back Pain Skin: absent: Rash, Pruritis Neurological: absent: Headache, Dizziness Endocrine: absent: Diaphoresis Hemo/Lymphatic: absent: Adenopathy Physical Exam Vital Signs Reviewed: Yes Vital Signs Temp Pulse Resp BP BP Pulse Ox 01/30/17 13:12 73 15 91/66 L 93 L 01/30/17 11:07 133 H 121/57 L 01/30/17 10:50 95/66 L 01/30/17 10:25 98.1 F 129 H 20 95/66 L 99 Temperature: Afebrile Blood Pressure: Hypotensive Pulse: Tachycardic Respiratory Rate: Normal Appearance: Positive for: Well-Appearing, Non-Toxic, Comfortable Mental Status: Positive for: Alert and Oriented X 3 - Systems Exam Head: Present: Atraumatic, Normocephalic Pupils: Present: PERRL Extroacular Muscles: Present: EOMI Conjunctiva: Present: Normal Mouth: Present: Moist Mucous Membranes Neck: Present: Normal Range of Motion Respiratory/Chest: Present: Clear to Auscultation, Good Air Exchange. No: Respiratory Distress, Accessory Muscle Use Cardiovascular: Present: Regular Rate and Rhythm, Normal S1, S2. No: Murmurs Abdomen: Present: Normal Bowel Sounds. No: Tenderness, Distention, Peritoneal Signs Back: Present: Normal Inspection Upper Extremity: Present: Normal Inspection. No: Cyanosis, Edema Lower Extremity: Present: Normal Inspection. No: Edema Neurological: Present: GCS=15, CN II-XII Intact, Speech Normal Skin: Present: Warm, Dry, Normal Color. No: Rashes Psychiatric: Present: Alert, Oriented x 3, Normal Insight, Normal Concentration Medical Decision Making ED Course and Treatment: 01/30/17 10:23 Impression: 61 year old female complaining of chest pain and palpitations that began this morning. Differential Diagnosis included but are not limited to: Plan: -- EKG -- Chest X-ray -- Urinalysis -- Labs -- Cardizem -- Reassess and disposition Prior Visits: Notes and results from previous visits were reviewed. Patient last seen in the ED on 01/22/17 for shortness of breath for one day. Patient was admitted to hospitalist care for further evaluation. Progress Notes: EKG: Ordered, reviewed, and independently interpreted the EKG. Rate : 132 BPM Rhythm : Atrial Flutter Interpretation : No ST-segment elevations or depressions, no T-wave inversions, normal intervals. Comparison : No previous EKG for comparison. Repeat EKG: Ordered, reviewed, and independently interpreted the EKG. Rate : 91 BPM Rhythm : NSR Interpretation : non-specific T-wave inversions Comparison : No previous EKG for comparison. 01/30/17 12:15 Chest X-ray: Dictator : LAZARO ORTIZ MD FINDINGS: LUNGS: Minimal opacity at right lung base, improved from 01/22/2017. This was not evident on examination of 01/23/2017. No other abnormal opacity is appreciated. PLEURA:No significant pleural effusion identified, no pneumothorax apparent. CARDIOVASCULAR:Normal heart size. Right central venous infusion port. OSSEOUS STRUCTURES:No significant abnormalities. VISUALIZED UPPER ABDOMEN:Normal. OTHER FINDINGS:None. IMPRESSION: Minimal opacity right base. Nonspecific. Possible pneumonia. Please correlate. 01/31/17 10:13 pt given cardizem iv, converted to sinus. pt seen bedside by non acoustic operator. advises as pt converted, no lovenox needed. dr moralez accepts. xr with possible infiltrate. antibiotics dose.d - Lab Interpretations Lab Results: 01/30/17 10:54 01/30/17 10:54 Lab Results 01/30/17 10:54: Sodium 144, Potassium 3.7, Chloride 108 H, Carbon Dioxide 27, Anion Gap 13, BUN 14, Creatinine 1.0, Est GFR ( Amer) > 60, Est GFR (Non- Af Amer) 56, Random Glucose 121 H, Calcium 8.5, Magnesium 1.9, Total Bilirubin 0.3, AST 45 H, ALT 42, Alkaline Phosphatase 171 H, Lactate Dehydrogenase 673, Total Creatine Kinase 41, Troponin I 0.02 D, Total Protein 5.7 L, Albumin 3.4, Globulin 2.3, Albumin/Globulin Ratio 1.5 01/30/17 10:54: PT 12.2 H, INR 1.13 H, APTT 34.5 H 01/30/17 10:54: WBC 4.0 L D, RBC 4.09, Hgb 11.7 L, Hct 37.3, MCV 91.2, MCH 28.6 , MCHC 31.4, RDW 16.0 H, Plt Count 271, MPV 10.1, Gran % 64.1, Lymph % (Auto) 20.2 L, Mcmullen % (Auto) 14.6 H, Eos % (Auto) 0.8 L, Baso % (Auto) 0.3, Gran # 2.54 , Lymph # 0.8 L, Mcmullen # 0.6, Eos # 0.0, Baso # 0.01 I have reviewed the lab results: Yes - RAD Interpretation Radiology Orders: 01/30/17 10:51 CHEST PORTABLE [RAD] Stat - Medication Orders Current Medication Orders: Amiodarone HCl (Cordarone) 200 mg PO DAILY [facility] Last Admin: 01/31/17 09:48 Dose: 200 mg Aspirin (Ecotrin) 81 mg PO DAILY [facility] Last Admin: 01/31/17 09:48 Dose: 81 mg Atenolol (Tenormin) 12.5 mg PO BID [facility] Last Admin: 01/31/17 09:49 Dose: 12.5 mg Atorvastatin Calcium (Lipitor) 40 mg PO DAILY [facility] Last Admin: 01/31/17 09:47 Dose: 40 mg Diltiazem HCl (Cardizem) 30 mg PO TID [facility] Last Admin: 01/31/17 09:47 Dose: 30 mg Doxycycline Hyclate (Doryx) 100 mg PO Q12 [facility] PRN Reason: Protocol Last Admin: 01/31/17 09:48 Dose: 100 mg Enoxaparin Sodium (Lovenox) 80 mg SC Q12H [facility] PRN Reason: Protocol Last Admin: 01/31/17 02:50 Dose: 80 mg Levalbuterol HCl (Xopenex) 0.63 mg IH TIDRESP [facility] Last Admin: 01/31/17 07:59 Dose: 0.63 mg Pantoprazole Sodium (Protonix Ec Tab) 40 mg PO DAILY [facility] Phenytoin Sodium (Dilantin) 100 mg PO DAILY [facility] Last Admin: 01/31/17 09:48 Dose: 100 mg Sildenafil Citrate (Revatio) 20 mg PO Q8H [facility] Last Admin: 01/31/17 05:28 Dose: Not Given Non-Admin Reason: BP Parameters Not Met Discontinued Medications Aspirin (Ecotrin) 81 mg PO STAT [facility] Stop: 01/30/17 14:11 Last Admin: 01/30/17 15:35 Dose: 81 mg Atenolol (Tenormin) 25 mg PO BID [facility] Last Admin: 01/30/17 19:08 Dose: Not Given Non-Admin Reason: BP Parameters Not Met Diltiazem HCl (Cardizem) 15 mg IVP STAT [facility] Stop: 01/30/17 10:55 Last Admin: 01/30/17 11:07 Dose: 15 mg Enoxaparin Sodium (Lovenox) 80 mg SC Q12H [facility] PRN Reason: Protocol Vancomycin HCl (Vancomycin 1gm) 1 gm in 250 mls @ 167 mls/hr IVPB STAT [facility] PRN Reason: Protocol Stop: 01/30/17 13:44 Last Admin: 01/30/17 13:51 Dose: 167 mls/hr Piperacillin Sod/Tazobactam Sod (Zosyn 3.375 In Ns 100ml) 100 mls @ 200 mls/hr IVPB STAT [facility] PRN Reason: Protocol Stop: 01/30/17 12:44 Last Admin: 01/30/17 12:53 Dose: 200 mls/hr Pneumococcal Polyvalent Vaccine (Pneumovax 23 Vaccine) 0.5 ml IM .ONCE ONE Stop: 01/30/17 15:24 - Scribe Statement The provider has reviewed the documentation as recorded by the Herrera Lucero Provider Scribe Attestation: All medical record entries made by the Scribe were at my direction and personally dictated by me. I have reviewed the chart and agree that the record accurately reflects my personal performance of the history, physical exam, medical decision making, and the department course for this patient. I have also personally directed, reviewed, and agree with the discharge instructions and disposition. Disposition/Present on Arrival - Present on Arrival Any Indicators Present on Arrival: No History of DVT/PE: No History of Uncontrolled Diabetes: No Urinary Catheter: No History of Decub. Ulcer: No History Surgical Site Infection Following: None - Disposition Have Diagnosis and Disposition been Completed?: Yes Diagnosis: Atrial flutter, Pneumonia Disposition: HOSPITALIZED Disposition Time: 02:00 Patient Problems: Current Active Problems Problem Status Onset Atrial flutter Acute Pneumonia Acute Condition: STABLE
[2017-01-30 11:15] LABS: BASO # 0.01 K/mm3 (0.0-2.0); BASO % 0.3 % (0.0-3.0); EOS % 0.8 % (1.5-5.0); GRAN # 2.54 (1.4-6.5); GRAN % 64.1 % (50.0-68.0); HEMATOCRIT 37.3 % (36.0-48.0); LYMPH # 0.8 (1.2-3.4); LYMPH % 20.2 % (22.0-35.0); MEAN CELL VOLUME 91.2 fl (80.0-105.0); MEAN CORPUSCULAR HEMOGLOBIN 28.6 pg (25.0-35.0); MEAN CORPUSCULAR HGB CONC 31.4 g/dl (31.0-37.0); MEAN PLATELET VOLUME 10.1 fl (7.0-11.0); MONO # 0.6 (0.1-0.6); MONO % 14.6 % (1.0-6.0)
[2017-01-30 11:23] LABS: ALB/GLOB RATIO 1.5 (1.1-1.8); ALKALINE PHOSPHATASE 171 U/L (38-133); ALT/SGPT 42 U/L (7-56); AST/SGOT 45 U/L (15-39); BILIRUBIN,TOTAL 0.3 mg/dL (0.2-1.3); BLOOD UREA NITROGEN 14 mg/dL (7-21); CALCIUM 8.5 mg/dL (8.4-10.5); CARBON DIOXIDE 27 mmol/L (21-33); CHLORIDE 108 mmol/L (98-107); GFR AFRICAN-AMERICAN > 60; GLUCOSE,RANDOM 121 mg/dL (70-110); MAGNESIUM 1.9 mg/dL (1.7-2.2); POTASSIUM 3.7 mmol/L (3.6-5.0); SODIUM 144 mmol/L (132-148); TOTAL PROTEIN 5.7 g/dL (5.8-8.3)
[2017-01-30 11:25] LABS: INR 1.13 (0.93-1.08); PARTIAL THROMBOPLASTIN TIME 34.5 Seconds (23.7-30.8)
[2017-01-30 11:35] LABS: TROPONIN I 0.02 ng/mL
--- NOTE | 2017-01-30 12:01 | RAD ---
HISTORY: cp COMPARISON: 01/23/2017 FINDINGS: LUNGS: Minimal opacity at right lung base, improved from 01/22/2017. This was not evident on examination of 01/23/2017. No other abnormal opacity is appreciated. PLEURA: No significant pleural effusion identified, no pneumothorax apparent. CARDIOVASCULAR: Normal heart size. Right central venous infusion port. OSSEOUS STRUCTURES: No significant abnormalities. VISUALIZED UPPER ABDOMEN: Normal. OTHER FINDINGS: None. IMPRESSION: Minimal opacity right base. Nonspecific. Possible pneumonia. Please correlate.
[2017-01-30] MEDS ORDERED: Piperacillin/Tazobact 3.375 gm 100 ML IVPB STA (12:15)
[2017-01-30] MEDS ORDERED: Vancomycin 1gm in NS 250ml 1 GM/250 ML BAG IVPB STA (12:15)
--- NOTE | 2017-01-30 13:22 | CARD ---
APPROVED REPORT EKG Measurement Heart [id number] <Conclusion> Junctional tachycardia Abnormal ECG
[2017-01-30] MEDS ORDERED: Enoxaparin 80 mg Syringe SC SCH (14:15)
--- NOTE | 2017-01-30 15:19 | CARD ---
APPROVED REPORT EKG Measurement Heart [id number] <Conclusion> Sinus rhythm with occasional premature ventricular complexes Rightward axis Nonspecific ST and T wave abnormality Prolonged QT Abnormal ECG
[2017-01-30 15:23] VITALS: BMI 32.5
[2017-01-30] MEDS ORDERED: Pneumococcal 23-Valent Vaccine IM ONE (15:23)
[2017-01-30] MEDS: Sildenafil 20 MG TAB PO SCH ×2 (15:34→21:20)
[2017-01-30] MEDS: Enoxaparin 80 mg Syringe SC SCH (15:35)
[2017-01-30 19:02] LABS: TROPONIN I 0.03 ng/mL
[2017-01-30] MEDS: Levalbuterol 0.63 MG/3 ML Inhal Soln UD IH SCH (22:01)
--- NOTE | 2017-01-30 23:17 | CP.PCM.PN ---
Subjective - Date & Time of Evaluation Date of Evaluation: 01/30/17 Time of Evaluation: 23:17 - Subjective Subjective: # 24 angiocath in left volar forearm. Objective - Vital Signs/Intake and Output Vital Signs (last 24 hours): Temp Pulse Resp BP Pulse Ox 98.3 F 82 20 99/76 L 93 L 01/30/17 17:32 01/30/17 19:08 01/30/17 17:32 01/30/17 19:08 01/30/17 13:12 - Medications Medications: Current Medications Amiodarone HCl (Cordarone) 200 mg PO DAILY [facility] Aspirin (Ecotrin) 81 mg PO DAILY [facility] Atenolol (Tenormin) 12.5 mg PO BID [facility] Atorvastatin Calcium (Lipitor) 40 mg PO DAILY [facility] Diltiazem HCl (Cardizem) 30 mg PO TID [facility] Last Admin: 01/30/17 19:08 Dose: Not Given Doxycycline Hyclate (Doryx) 100 mg PO Q12 [facility] PRN Reason: Protocol Last Admin: 01/30/17 21:22 Dose: 100 mg Enoxaparin Sodium (Lovenox) 80 mg SC Q12H [facility] PRN Reason: Protocol Last Admin: 01/30/17 15:35 Dose: 80 mg Levalbuterol HCl (Xopenex) 0.63 mg IH TIDRESP [facility] Last Admin: 01/30/17 22:01 Dose: 0.63 mg Pantoprazole Sodium (Protonix Ec Tab) 40 mg PO DAILY [facility] Phenytoin Sodium (Dilantin) 100 mg PO DAILY [facility] Sildenafil Citrate (Revatio) 20 mg PO Q8H [facility] Last Admin: 01/30/17 21:20 Dose: Not Given - Labs Labs: PT 12.2 Seconds (9.9-11.8) H 01/30/17 10:54 INR 1.13 (0.93-1.08) H 01/30/17 10:54 APTT 34.5 Seconds (23.7-30.8) H 01/30/17 10:54
[2017-01-31] MEDS: Enoxaparin 80 mg Syringe SC SCH (02:50)
[2017-01-31] MEDS: Sildenafil 20 MG TAB PO SCH (05:28)
--- NOTE | 2017-01-31 06:04 | HP ---
CHIEF COMPLAINT: Heart palpitation and chest tightness. HISTORY OF PRESENT ILLNESS: A 61-year-old female with history of COPD, right dilated cardiomyopathy, pulmonary hypertension, and left lung cancer, who came to the emergency room by ambulance after developed heart palpitations and chest tightness 2 hours earlier. The patient called me this morning stating that she is not feeling well. She stopped Cardizem and amiodarone since her discharge home week ago. The patient was advised to take dose of Cardizem and amiodarone. She did not feel better and came to the emergency room for evaluation. The patient denies any increased cough, fever, or severe shortness of breath.Her heart rate during ER evaluation was 140 /minute. She was treated with IV Cardizem. PAST MEDICAL HISTORY: Significant for right cardiomyopathy with congestive heart failure, severe pulmonary hypertension, coronary artery disease, peripheral vascular disease, severe COPD, left small-cell lower lobe lung cancer, history of meningioma. PAST SURGICAL HISTORY: Status post meningioma excision, status post cardiac catheterization with status post femoral artery stent. PRESENT MEDICATIONS: Keppra, sildenafil, Dilantin, omeprazole, gabapentin, atorvastatin, atenolol, Brovana. ALLERGIES: THE PATIENT HAS KNOWN ALLERGIES TO SYED. NO ALLERGIES TO MEDICATIONS. FAMILY HISTORY: Significant for cardiac problem and hypertension. SOCIAL HISTORY: The patient is an ex-smoker. She quit smoking 8 months ago. The patient has history of smoking 1 to 2 packs per day for past 40 years. She denies any alcohol or drug use. The patient is . She lives with her family. The patient is independent with activity of daily living but uses oxygen daily. REVIEW OF SYSTEMS: She denies fever but complains loss of appetite. She denies any weight loss. She denies any sore throat or dysphagia. The patient complains of chronic productive cough, exertional dyspnea. The patient denies any diaphoresis, but complains of heart palpitation and chest tightness. She denies any epigastric pain, nausea or vomiting. The patient denies any dysuria, hematuria, or flank pain. The patient denies any dizziness, blurry vision, weakness, or tremor. She denies any depressed mood or suicidal thoughts. PHYSICAL EXAMINATION: GENERAL: She is alert, awake, oriented during examination, in no acute form of distress. VITAL SIGNS: Her temperature this morning was 98.1, her pulse in the emergency room was 133 and regular and blood pressure was 95/61, her respiratory rate was 20, and oxygen saturation was 92% on 2 L of nasal cannula. HEENT: Head is normocephalic, atraumatic. Eyes with pupils reactive to light. Oral mucosa is moist. Neck is supple. LUNGS: Clear to auscultation. No wheezing. HEART: With regular rhythm, rate of 80 per minute during evaluation. ABDOMEN: Soft, nontender, nondistended. EXTREMITIES: With no edema, cyanosis, or clubbing. DIAGNOSTIC TESTS: CBC stable with WBC 4, hemoglobin 11.7, and platelet count 271. Chemistry with normal electrolytes. Random glucose 121. Renal function stable with BUN 14, creatinine 1. AST 45, ALT 42. Her troponin was 0.02, repeat is 1.03. EKG showed junctional tachycardia with nonspecific ST-T changes, repeated after a Cardizem IV showed normal sinus rhythm with occasional premature ventricular complexes and right axis deviation, non-specific ST-T changes and prolonged QT. Chest x-ray show minimal opacity in the right base. ASSESSMENT: A 61-year-old female with history of severe chronic obstructive pulmonary disease, right cardiomyopathy, and pulmonary hypertension admitted for: 1. Episode of supraventricular tachycardia. 2. Severe chronic obstructive pulmonary disease. 3. Abnormal chest x-ray with possible right base infiltration. 4. History of left lung cancer. PLAN OF TREATMENT: The patient was treated with Cardizem IV, converted to normal sinus rhythm. The patient was admitted to telemetry for heart rate observation. Continue with atenolol, amiodarone, oxygen, furosemide, Cardizem. She will be maintained on her chronic medications of Dilantin, Keppra, Protonix. She will be maintained on Xopenex nebulizer treatment and ice. The patient was treated with IV antibiotic in the emergency room, continue with doxycycline p.o. 100 mg twice a day. Geological Manager will be called on consult. Keira Keith MD MTDMarissa
[2017-01-31 07:08] LABS: BASO # 0.01 K/mm3 (0.0-2.0); BASO % 0.4 % (0.0-3.0); EOS % 1.5 % (1.5-5.0); GRAN # 1.46 (1.4-6.5); GRAN % 54.7 % (50.0-68.0); HEMATOCRIT 34.4 % (36.0-48.0); LYMPH # 0.6 (1.2-3.4); LYMPH % 23.2 % (22.0-35.0); MEAN CELL VOLUME 91.7 fl (80.0-105.0); MEAN CORPUSCULAR HEMOGLOBIN 29.1 pg (25.0-35.0); MEAN CORPUSCULAR HGB CONC 31.7 g/dl (31.0-37.0); MEAN PLATELET VOLUME 10.1 fl (7.0-11.0); MONO # 0.5 (0.1-0.6); MONO % 20.2 % (1.0-6.0); PLATELET COUNT 211 10^3/uL (120.0-450.0); RED CELL DISTRIBUTION WIDTH 16.2 % (11.5-14.5)
[2017-01-31 07:15] LABS: ALB/GLOB RATIO 1.4 (1.1-1.8); ALKALINE PHOSPHATASE 141 U/L (38-126); ALT/SGPT 42 U/L (7-56); AST/SGOT 24 U/L (14-36); BILIRUBIN,TOTAL 0.3 mg/dL (0.2-1.3); BLOOD UREA NITROGEN 13 mg/dL (7-21); CALCIUM 8.5 mg/dL (8.4-10.5); CARBON DIOXIDE 27 mmol/L (21-33); CHLORIDE 107 mmol/L (98-107); CHOLESTEROL 132 mg/dL (130-200); GFR AFRICAN-AMERICAN > 60; GLUCOSE,RANDOM 95 mg/dL (70-110); MAGNESIUM 1.8 mg/dL (1.7-2.2); PHOSPHOROUS 3.9 mg/dL (2.5-4.5); POTASSIUM 3.7 mmol/L (3.6-5.0); SODIUM 143 mmol/L (132-148); TOTAL PROTEIN 5.6 g/dL (5.8-8.3)
[2017-01-31 07:18] LABS: TROPONIN I 0.02 ng/mL
[2017-01-31 07:32] LABS: WHITE BLOOD COUNT 2.7 10^3/ul (4.5-11.0)
[2017-01-31] MEDS: Levalbuterol 0.63 MG/3 ML Inhal Soln UD IH SCH ×2 (07:59→13:32)
[2017-01-31 08:03] VITALS: O2SAT 97
[2017-01-31 08:55] LABS: ANISOCYTOSIS 1+; ATYPICAL LYMPHOCYTE 3 % (0.0-0.0); EOSINOPHIL 2 % (0.0-3.0); HYPOCHROMIA 1+; NEUTROPHIL 60 % (50.0-70.0); PLATELET ESTIMATE NORMAL (NORMAL); POLYCHROMASIA SLIGHT; TEAR DROP CELLS SLIGHT
[2017-01-31 08:56] LABS: OVALOCYTES SLIGHT
[2017-01-31] MEDS ORDERED: Pantoprazole 40 mg EC Tab PO SCH (10:00)
[2017-01-31 12:04] VITALS: BP 110/77; RESP 18; TEMP 97.9
[2017-01-31 13:40] VITALS: PULSE 86
--- NOTE | 2017-01-31 15:12 | CON ---
DATE: 01/30/2017 REASON FOR CONSULTATION: Cardiac evaluation, atrial fibrillation/flutter. BRIEF CLINICAL HISTORY: A 61-year-old female with history of coronary artery disease, peripheral arterial disease, lung CA that is inoperable, recently was discharged, came back with the compliant of palpitation, found to be in atrial flutter with 120 mg of Cardizem was given, and the patient converted to normal sinus. The patient is on chemotherapy and on a steroid as well. Recent PET scan was done by Dr. Gomez, result pending. History of stent in RCA with bare metal on 07/15/2016. Bare metal was placed because the patient is on chemotherapy and Plavix continuation for the long-term was questionable as the patient has lung CA and is getting chemo. PAST MEDICAL HISTORY: Significant for COPD, coronary artery disease, stent placement in right coronary on 07/15/2016, bare metal stent, SVT, paroxysmal atrial fibrillation, severe mitral regurgitation, and severe tricuspid regurgitation. Previous cardiac workup as follows: The patient had echocardiogram in 07/11/2016 which showed ejection fraction of 65-70%, dilated right atrium and dilated right ventricle, dilated left atrium, right ventricle severely dilated, systolic function of heart severely reduced, severe tricuspid regurgitation, RV systolic pressure of 123 mmHg. The patient has history of pulmonary hypertension. The patient had cardiac catheterization 07/15/2016 that revealed normal LV function, ejection fraction of 55%, left main free of any significant disease, bifurcating LAD and circumflex. LAD is without significant disease. Circumflex is diffuse and there is 40-50% narrowing noted. RCA 80-90% blockage for which a bare metal stent was placed. At that time, the patient has also right heart catheterization done that revealed RA pressure of 10-12, RV 60/10, PA pressure was 60/27, mean PA 38 mmHg. Pulmonary capillary wedge pressure was 13. Cardiac output 3.83, cardiac index 1.89 and Primacor was discontinued prior to cardiac catheterization. SOCIAL HISTORY: Used to smoke a pack a day. She said that she had stopped for about 6 months to a year. Stopped drinking since 2005. CURRENT MEDICATIONS AT HOME: The patient is taking Keppra, Cardizem CD 180 mg daily, Revatio 20 mg daily, Dilantin, omeprazole, Singulair, Medrol Henry, gabapentin, Lasix, folic acid, atorvastatin and atenolol. ALLERGIES: TO SYED. REVIEW OF SYSTEMS: As per HPI. PHYSICAL EXAMINATION: VITAL SIGNS: As follows, temperature afebrile, heart rate 68, blood pressure 138/80. HEENT: PERRLA. Extraocular muscles are intact. NECK: Supple. No carotid bruit or thyromegaly. CHEST: Clear to auscultation. HEART: S1 and S2, regular. ABDOMEN: Soft. EXTREMITIES: Clubbing and cyanosis negative. LABORATORY DATA: Blood workup as follows: WBC 4, hemoglobin 11.7, hematocrit 37.3, platelet count 271. Chemistry shows sodium 140, potassium 3.7, chloride 108, bicarbonate 23, anion gap of 13, BUN 14, creatinine 1.0. Albumin 3.4, total protein 5.7, albumin-globulin ratio 1.5. IMPRESSION: Atrial fibrillation with rapid ventricular rate, now converted to normal sinus, history of paroxysmal atrial fibrillation, history of myocardial infarction, previous history of severe tricuspid regurgitation, status post percutaneous transluminal coronary angioplasty on 07/15/2016 with bare metal stent in right coronary artery, increased pulmonary hypertension, pulmonary vascular resistance of 6.8 Wood Units, chronic obstructive pulmonary disease, on home oxygen, inoperable lung cancer, on chemotherapy, recent PET scan with diagnosis pending. RECOMMENDATIONS: Continue aspirin. The patient off Plavix because of bare metal stent. A bare metal stent was done because the patient may need chemotherapy. Continue aspirin, continue Cardizem, continue Revatio as blood pressure tolerates, continue Dilantin for seizure disorder, continue atenolol. We will give 1 dose of . We will follow with you. Thank you Dr. Singh for providing me the opportunity in taking care of the patient. Serenity Maguire MD
--- NOTE | 2017-01-31 19:27 | PN ---
DATE: 01/31/2017 REASON FOR CONSULTATION: Paroxysmal atrial fibrillation. BRIEF CLINICAL HISTORY: This is a 61-year-old female with past medical history significant for coronary artery disease, status post PTCA of RCA in July, possibly on amiodarone, Cardizem and atenolol was stopped apparently. Cardizem . The patient was given IV Cardizem, converted to normal sinus. Now, patient feels better and wanted to go home. SUBJECTIVE: No chest pain. No shortness of breath. No palpitation. OBJECTIVE: GENERAL: Sitting at the bedside, not in apparent distress. Examination as follows: VITAL SIGNS: Temperature afebrile, heart rate 80, blood pressure 107/74. HEENT: PERRLA. Extraocular muscles are intact. NECK: Supple. No carotid bruit. No thyromegaly. CHEST: Clear to auscultation. HEART: S1 and S2, regular. ABDOMEN: Soft. EXTREMITIES: Clubbing and cyanosis negative. LABORATORY DATA: Blood workup as follows: WBC 2.7, hemoglobin 10.7, hematocrit 34.4, platelet count 211. Chemistry shows sodium 140, potassium 3.7, chloride 107, carbon dioxide 27, anion gap of 13, BUN 13, creatinine 1.1. Troponin 0.02 x3 negative. Cholesterol 132, LDL 58, HDL 63. TSH pending. Hemoglobin A1c pending. IMPRESSION: Paroxysmal atrial fibrillation secondary to noncompliance with the medication. The patient has stopped amiodarone and stopped atenolol. RECOMMENDATIONS: Continue Cardizem 30 mg three times a day and amiodarone 200 mg daily. Continue atorvastatin. Continue atenolol 12.5 mg b.i.d. We will follow with you. Discussed with the patient in length the compliance. Patient agreed to proceed for possible discharge today. Further recommendations depending on the hospital course. We will follow with you. Possible discharge today. Thank you for providing me the opportunity in taking care of Aviva Feliciano. Serenity Maguire MD
--- NOTE | 2017-01-31 23:37 | DS ---
HISTORY OF PRESENT ILLNESS: The patient is a 61-year-old female admitted for an episode of supraventricular tachycardia yesterday. She converted to normal sinus rhythm after the IV Cardizem in the emergency room. The patient is feeling much better. She is in normal sinus rhythm since yesterday. She denies any chest pain. She has chronic productive cough. PHYSICAL EXAMINATION: VITAL SIGNS: On discharge temperature 98.4, blood pressure 106/77, respiratory rate 20, pulse 83 to 98 regular. Oxygen saturation 95% on 2 L of nasal cannula. GENERAL: The patient is alert, awake, oriented, in no acute distress. HEENT: Head is normocephalic, atraumatic. Oral mucosa is moist. NECK: Supple. No neck masses or JVD. LUNGS: Decreased breath sounds in bases. No rales, wheezing, or rhonchi. HEART: Is with regular rhythm. Rate of 90 per minute. ABDOMEN: Soft, nontender, nondistended. EXTREMITIES: With no edema with full range of motion. DIAGNOSTIC TEST: This morning are stable. CBC with mild leukopenia 2.7, hemoglobin 10.9, hematocrit 34.4, and platelet count 211. Chemistry is normal. Her third set of troponin is negative. Telemetry showing normal sinus rhythm. ASSESSMENT: 1. Status post supraventricular tachycardia, converted to normal sinus rhythm. 2. Chronic right cardiomyopathy and severe pulmonary hypertension, hemodynamically stable. 3. Severe chronic obstructive pulmonary disease. 4. Pancytopenia due to undergoing chemotherapy. 5. Left small-cell lung cancer. PLAN OF TREATMENT: She will be discharged home today. The patient will be maintained on antiarrhythmics amiodarone 200 mg, Cardizem 30 mg 3 times a day and atenolol 12.5 mg twice a day. The patient needs monitoring of blood pressure and she has blood pressure machine at home. We will continue her chronic anti-seizure medications, Keppra and Dilantin. We will continue Brovana twice a day. She is on CPAP machine at home. Encourage compliance with use of CPAP machine. The patient will continue doxycycline 100 mg twice a day for next 7 days for the treatment of possible infiltration. However, clinically she does not have any acute infection. The patient was advised to follow up with primary care doctor in 1 week. Keira Keith MD [facility]
[2017-02-01] MEDS ORDERED: Enoxaparin 40 mg Syringe SC SCH (10:00)
== END 2017-01-31 17:17 | disposition home or self-care (01) ==
LOC: ED 10:22 → ERH 11:52 → 2RSO 14:07
PROVIDERS: ADMIT Family Medicine; ATTEND Family Medicine
DX: I47.1 Supraventricular tachycardia (principal); I42.0 Dilated cardiomyopathy; I27.2 Other secondary pulmonary hypertension; J18.9 Pneumonia, unspecified organism; J44.0 Chronic obstructive pulmonary disease with (acute) lower respiratory infection; C34.92 Malignant neoplasm of unspecified part of left bronchus or lung; D61.810 Antineoplastic chemotherapy induced pancytopenia; Z87.891 Personal history of nicotine dependence; H91.92 Unspecified hearing loss, left ear; I08.1 Rheumatic disorders of both mitral and tricuspid valves; I11.0 Hypertensive heart disease with heart failure; I25.10 Atherosclerotic heart disease of native coronary artery without angina pectoris; I48.0 Paroxysmal atrial fibrillation; I48.92 Unspecified atrial flutter; I50.9 Heart failure, unspecified; I73.9 Peripheral vascular disease, unspecified; K21.9 Gastro-esophageal reflux disease without esophagitis; T45.1X5A Adverse effect of antineoplastic and immunosuppressive drugs, initial encounter; Z79.899 Other long term (current) drug therapy; Z85.42 Personal history of malignant neoplasm of other parts of uterus; Z86.011 Personal history of benign neoplasm of the brain; Z90.49 Acquired absence of other specified parts of digestive tract; Z90.710 Acquired absence of both cervix and uterus; Z91.14 Patient's other noncompliance with medication regimen; Z95.5 Presence of coronary angioplasty implant and graft; Z99.81 Dependence on supplemental oxygen
CPT/HCPCS: 36415; 71010; 80053; 80061; 82550; 83036; 83615; 83735; 84100; 84443; 84484; 85025; 85610; 85730; 87040; 93005; 94640; 96365; 96372; 96375; 99285; G0378; J1650; J2543

== ENCOUNTER 2017-03-06 09:29 | Inpatient (IN) | payer MEDICARE, MEDICAID ==
[2017-03-06] MEDS ORDERED: Sodium Chloride 0.9% 500 ML IV STA ×2 (10:03→11:07)
[2017-03-06 10:09] LABS: GRAN # 5.62 (1.4-6.5); GRAN % 80.5 % (50.0-68.0); LYMPH # 0.6 (1.2-3.4); LYMPH % 8.9 % (22.0-35.0); MEAN CELL VOLUME 86.2 fl (80.0-105.0); MEAN CORPUSCULAR HEMOGLOBIN 26.9 pg (25.0-35.0); MEAN CORPUSCULAR HGB CONC 31.2 g/dl (31.0-37.0); MEAN PLATELET VOLUME 9.9 fl (7.0-11.0); MONO # 0.7 (0.1-0.6); MONO % 10.6 % (1.0-6.0)
[2017-03-06 10:21] LABS: VENOUS BLOOD GAS BASE EXCESS -12.3 mmol/L (0.0-2.0); VENOUS BLOOD PH 7.11 (7.32-7.43)
[2017-03-06 10:23] LABS: ALB/GLOB RATIO 1.7 (1.1-1.8); BILIRUBIN,TOTAL 0.7 mg/dL (0.2-1.3); CALCIUM 8.3 mg/dL (8.4-10.5); TOTAL PROTEIN 5.8 g/dL (5.8-8.3)
[2017-03-06 10:35] LABS: TROPONIN I 0.04 ng/mL
--- NOTE | 2017-03-06 10:35 | RAD ---
HISTORY: chest pain COMPARISON: 02/13/2017 FINDINGS: LUNGS: No active pulmonary disease. PLEURA: No significant pleural effusion identified, no pneumothorax apparent. CARDIOVASCULAR: Moderate cardiomegaly OSSEOUS STRUCTURES: No significant abnormalities. VISUALIZED UPPER ABDOMEN: Normal. OTHER FINDINGS: Right-sided Port-A-Cath IMPRESSION: No active disease.
--- NOTE | 2017-03-06 10:38 | ED PDOC ---
Arrival/HPI - General Historian: Patient, Family - Critical Care Critical Care Minutes: 30 minutes - General Chief Complaint: Weakness/Neurological Deficit Time Seen by Provider: 03/06/17 09:55 - History of Present Illness Narrative History of Present Illness (Text): 03/06/17 10:22 61-year-old female with a history of lung CA, CHF, A. fib on chemotherapy presents today with syncopal episode last night, seizure 2 this morning headache, chest pain, shortness of breath, generalized weakness and low blood pressure over the past week. pt states she hasn't urinated since yesterday afternoon. pt c/o right sided back pain. family states patient had syncopal episode yesterday and had 2 seizures at home today, last seizure prior to arrival in er. (Altagracia Pitts) Past Medical History - Provider Review Nursing Documentation Reviewed: Yes - Travel History Have you recently traveled outside [place] w/in the past 3 mons?: No - Infectious Disease Hx of Infectious Diseases: None - Tetanus Immunization Tetanus Immunization: Unknown - Cardiac Hx Cardiac Disorders: Yes (SVT) Hx Cardiac Arrhythmia: Yes Hx Circulatory Problems: Yes Hx Congestive Heart Failure: Yes Hx Hypertension: Yes - Pulmonary Hx Respiratory Disorders: Yes (SMOKED CIGARETTES QUIT- < PPD) Hx Chronic Obstructive Pulmonary Disease (COPD): Yes Hx Emphysema: Yes Other/Comment: Left Lung CA - Neurological Hx Neurological Disorder: Yes Hx Dizziness: Yes - HEENT Hx HEENT Disorder: Yes (eyeglasses) Hx Blind: No Hx Cataracts: No Hx Deafness: Yes (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 ear) Hx Epistaxis: No Hx Glaucoma: No Hx Macular Degeneration: No Other/Comment: ringing in ears - Renal Hx Renal Disorder: No - Endocrine/Metabolic Hx Endocrine Disorders: No - Hematological/Oncological Hx Blood Disorders: Yes Hx Anemia: Yes (blood transfusion) Hx Cancer: Yes (lung dx 04/2016) Hx Chemotherapy: Yes (LAST ON 03/04/17) Other/Comment: uterine ca over yrs ago. LAST HYDRATION ON 03/05/17 - Integumentary Hx Dermatological Disorder: No Hx Basal Cell Carcinoma: No Hx Eczema: No Hx Melanoma: No Hx Psoriasis: No Hx Squamous Cell Carcinoma: No Other/Comment: b/l leg edema - Musculoskeletal/Rheumatological Hx Musculoskeletal Disorders: No Hx Falls: Yes - Gastrointestinal Hx Gastrointestinal Disorders: Yes (reflux/pancreatitis) - Genitourinary/Gynecological Hx Genitourinary Disorders: Yes (cervical,uterine ca) Other/Comment: hx fibroids had hyst due to fibroids - Psychiatric Hx Psychophysiologic Disorder: Yes Hx Anxiety: Yes Hx Substance Use: No - Surgical History Hx Cholecystectomy: Yes Hx Coronary Stent: Yes Hx Hysterectomy: Yes Other/Comment: polypectomy,. R chest port - Anesthesia Hx Anesthesia: Yes Hx Anesthesia Reactions: No Hx Malignant Hyperthermia: No - Suicidal Assessment Feels Threatened In Home Enviroment: No Family/Social History - Physician Review Nursing Documentation Reviewed: Yes Family/Social History: Unknown Family HX Smoking Status: Former Smoker Hx Alcohol Use: No (QUIT 2005) Hx Substance Use: No Hx Substance Use Treatment: No Allergies/Home Meds Allergies/Adverse Reactions: Allergies diallo Allergy (Mild, Verified 03/06/17 13:51) RASH Home Medications: Home Meds Medication Instructions Recorded Confirmed Folic Acid 1 mg PO DAILY 09/22/16 03/06/17 Omeprazole Magnesium [Prilosec Otc] 20 mg PO DAILY 10/24/16 03/06/17 Montelukast [Singulair] 10 mg PO DAILY 01/22/17 03/06/17 Roflumilast [Daliresp] 500 mcg PO DAILY 01/22/17 03/06/17 Atenolol [Tenormin] 12.5 mg PO BID 01/30/17 03/06/17 Atorvastatin [Lipitor] 40 mg PO DAILY 01/30/17 03/06/17 Furosemide [Lasix] 20 mg PO DAILY 01/30/17 03/06/17 Gabapentin [Neurontin] 300 mg PO HS 01/30/17 03/06/17 Phenytoin, Extended [Dilantin] 100 mg PO DAILY 01/30/17 03/06/17 Sildenafil [Revatio] 20 mg PO Q8H 01/30/17 03/06/17 methylPREDNISolone [Medrol] 2 tab PO DAILY 01/30/17 03/06/17 diltiaZEM CD [Cardizem CD] 120 mg PO DAILY 03/06/17 03/06/17 Review of Systems - Review of Systems Constitutional: Fatigue. absent: Fevers Respiratory: SOB, Cough (chronic) Cardiovascular: Chest Pain, Syncope. absent: Palpitations Gastrointestinal: Nausea. absent: Abdominal Pain, Vomiting Genitourinary Female: Urine Output Changes Musculoskeletal: Back Pain Skin: absent: Rash Neurological: Headache, Dizziness Physical Exam Vital Signs Reviewed: Yes Temperature: Afebrile Blood Pressure: Hypotensive Pulse: Regular Respiratory Rate: Normal Appearance: Positive for: Non-Toxic, Comfortable, Ill-Appearing Pain Distress: None Mental Status: Positive for: Alert and Oriented X 3 - Systems Exam Head: Present: Atraumatic Pupils: Present: PERRL Extroacular Muscles: Present: EOMI Mouth: Present: Moist Mucous Membranes Neck: Present: Normal Range of Motion Respiratory/Chest: Present: Good Air Exchange, Rhonchi, Tachypneic. No: Clear to Auscultation, Respiratory Distress, Accessory Muscle Use, Wheezes, Retracting Cardiovascular: Present: Regular Rate and Rhythm. No: Tachycardic Abdomen: No: Tenderness, Distention, Rebound, Guarding Back: Present: Normal Inspection, Other (right sided tenderness, mid back) Upper Extremity: Present: Normal ROM Neurological: Present: GCS=15, Speech Normal Skin: Present: Warm Psychiatric: Present: Alert, Oriented x 3 Vital Signs Temp Pulse Pulse Resp BP Pulse Ox 03/06/17 13:51 97.7 F 79 61 18 98/62 L 03/06/17 13:13 79 17 98/62 L 100 03/06/17 12:44 77 16 104/79 100 03/06/17 11:59 78 18 104/74 100 03/06/17 11:47 84 15 102/87 90 L 03/06/17 09:59 81/67 L 03/06/17 09:47 97.7 F 80 21 96 Medical Decision Making ED Course and Treatment: I was available for consultation during PA evaluation. The chart was reviewed by me, and I agree with disposition. The documented history was done by the physician parts puller. The documented physical exam was done by the physician parts puller. The documented procedures were done by the physician parts puller. (Trey Geronimo) 03/06/17 11:40 61yr old female with weakness, seizure s/p chemo [address] ordered; labs ekg;NSr at 77b/m Right axis deviation, no st elevation pt seen and evaluated by dr. geronimo . cxr:FINDINGS: LUNGS: No active pulmonary disease. PLEURA: No significant pleural effusion identified, no pneumothorax apparent. CARDIOVASCULAR: Moderate cardiomegaly OSSEOUS STRUCTURES: No significant abnormalities. VISUALIZED UPPER ABDOMEN: Normal. OTHER FINDINGS: Right-sided Port-A-Cath IMPRESSION: No active disease. pt hypotensive with hx of CHF: 500cc bolus given. pt with vbg; PH; 7.11; lactate of 4.1. pt does not currently meet sepsis criteria will cover empirically with vancomycin and Zosyn. pt with JUSTINA with potassium of 5.8. calcium gluconcate, D50 x 2 given, Insulin 10mg IV given, albuterol, additional 500cc NS given pt had seizure in ER; ativan 1 Mg GIven. additional 1L NS given pt on BIPAP. blood pressure improving. case discussed with dr. gomez; accepted. 03/06/17 11:[address] Mendoza electromechanical equipment tester at bedside; advised starting patient on bipap; 100meq bicarb IVP, Keppra IV, ABG accepted to ICU. ABG shows metabolic acidosis impression; JUSTINA, hyperkalemia, metabolic acidosis, seizure, CHF admit ICU (Altagracia Pitts) - Lab Interpretations Lab Results: 03/06/17 09:45 03/06/17 09:45 Lab Results 03/06/17 09:45: pO2 42, VBG pH 7.11 L*, VBG pCO2 55.0, VBG HCO3 17.5 L, VBG Total CO2 19.2 L, VBG O2 Sat (Calc) 66.7 H, VBG Base Excess -12.3 L, VBG Potassium 5.9 H, Sodium 135.0, Chloride 103.0, Glucose 129 H, Lactate 4.1 H*, FiO2 21.0, Venous Blood Potassium 5.9 H 03/06/17 09:45: Phenytoin < 3 L 03/06/17 09:45: WBC 7.0 D, RBC 4.87, Hgb 13.1 D, Hct 42.0, MCV 86.2 D, MCH 26.9, MCHC 31.2, RDW 17.0 H, Plt Count 264, MPV 9.9, Gran % 80.5 H, Lymph % ( Auto) 8.9 L, [place] % (Auto) 10.6 H, Eos % (Auto) 0.0 L, Baso % (Auto) 0.0, Gran # 5.62, Lymph # 0.6 L, [place] # 0.7 H, Eos # 0.0, Baso # 0.00 03/06/17 09:45: Sodium 139, Chloride 105, Potassium 5.8 H* D, Carbon Dioxide 16 L, Anion Gap 24 H, BUN 43 H, Creatinine 3.4 H, Est GFR ( Amer) 17, Est GFR (Non-Af Amer) 14, Random Glucose 127 H, Calcium 8.3 L, Total Bilirubin 0.7, AST 95 H D, ALT 99 H, Alkaline Phosphatase 110, Lactate Dehydrogenase 1148 H, Total Creatine Kinase 54, Troponin I 0.04 D, NT-Pro-B Natriuret Pep 66494 H, Total Protein 5.8, Albumin 3.7, Globulin 2.2, Albumin/Globulin Ratio 1.7, Lipase 24 03/06/17 09:45: PT 14.8 H, INR 1.37 H, APTT > 180.0 H* - RAD Interpretation Radiology Orders: 03/06/17 09:56 CHEST PORTABLE [RAD] Stat 03/06/17 10:16 HEAD W/O CONTRAST [CT] Stat - Medication Orders Current Medication Orders: Albuterol/Ipratropium (Duoneb 3 Mg/0.5 Mg (3 Ml) Ud) 3 ml IH [id number] DANICA Albuterol/Ipratropium (Duoneb 3 Mg/0.5 Mg (3 Ml) Ud) 3 ml IH Q2H PRN PRN Reason: Shortness of Breath Levetiracetam 500 mg/ Sodium (Chloride) 105 mls @ 460 mls/hr IV Q12 DANICA Sodium Chloride (Sodium Chloride 0.9%) 1,000 mls @ 150 mls/hr IV .Q6H40M DANICA Pantoprazole Sodium (Protonix Inj) 40 mg IVP DAILY DANICA Discontinued Medications Albuterol Sulfate (Albuterol 0.083% Inhal Zulay (2.5 Mg/3 Ml) Ud) 2.5 mg IH STAT STA Stop: 03/06/17 10:52 Last Admin: 03/06/17 11:56 Dose: 2.5 mg Dextrose (Dextrose 50% Inj) 100 ml IVP STAT STA Stop: 03/06/17 10:48 Last Admin: 03/06/17 11:16 Dose: 100 ml IVP Administration Document 03/06/17 11:16 (Rec: 03/06/17 11:17 [id number]) Charges for Administration # of IVP Administrations 1 Sodium Chloride (Sodium Chloride 0.9%) 500 mls @ 999 mls/hr IV .Q31M STA Stop: 03/06/17 10:33 Last Admin: 03/06/17 10:35 Dose: 999 mls/hr eMAR Start Stop Document 03/06/17 10:35 (Rec: 03/06/17 10:36 [id number]) Intravenous Solution Start Date 03/06/17 Start Time 10:36 End Date 03/06/17 End time 11:00 Total Infusion Time 24 Calcium Gluconate 1,000 mg/ (Sodium Chloride) 110 mls @ 110 mls/hr IVPB ONCE ONE Stop: 03/06/17 11:46 Last Admin: 03/06/17 11:28 Dose: 110 mls/hr eMAR Start Stop Document 03/06/17 11:28 (Rec: 03/06/17 11:28 [id number]) Intravenous Solution Start Date 03/06/17 Start Time 11:28 End Date 03/06/17 End time 12:53 Total Infusion Time 85 Piperacillin Sod/Tazobactam Sod (Zosyn 3.375 In Ns 100ml) 100 mls @ 200 mls/hr IVPB STAT STA PRN Reason: Protocol Stop: 03/06/17 11:33 Last Admin: 03/06/17 11:52 Dose: 200 mls/hr eMAR Start Stop Document 03/06/17 11:52 (Rec: 03/06/17 11:52 [id number]) Intravenous Solution Start Date 03/06/17 Start Time 11:52 End Date 03/06/17 End time 13:28 Total Infusion Time 96 Sodium Chloride (Sodium Chloride 0.9%) 500 mls @ 999 mls/hr IV .Q31M STA Stop: 03/06/17 11:37 Sodium Chloride (Sodium Chloride 0.9%) 1,000 mls @ 999 mls/hr IV .Q1H1M STA Stop: 03/06/17 12:13 Last Admin: 03/06/17 11:33 Dose: 999 mls/hr eMAR Start Stop Document 03/06/17 11:33 (Rec: 03/06/17 11:33 [id number]) Intravenous Solution Start Date 03/06/17 Start Time 11:33 Vancomycin HCl (Vancomycin 1gm) 1 gm in 250 mls @ 167 mls/hr IVPB STAT STA PRN Reason: Protocol Stop: 03/06/17 12:51 Last Admin: 03/06/17 13:27 Dose: 167 mls/hr eMAR Start Stop Document 03/06/17 13:27 (Rec: 03/06/17 13:28 [id number]) Intravenous Solution Start Date 03/06/17 Start Time 13:28 Levetiracetam 1,000 mg/ Sodium (Chloride) 110 mls @ 440 mls/hr IV ONCE ONE Stop: 03/06/17 11:48 Last Admin: 03/06/17 12:52 Dose: 440 mls/hr eMAR Start Stop Document 03/06/17 12:52 (Rec: 03/06/17 12:52 [id number]) Intravenous Solution Start Date 03/06/17 Start Time 12:52 End Date 03/06/17 End time 13:30 Total Infusion Time 38 Insulin Human Regular (Humulin R) 10 units IV STAT STA Stop: 03/06/17 10:49 Last Admin: 03/06/17 11:17 Dose: 10 units eMAR Start Stop Document 03/06/17 11:17 (Rec: 03/06/17 11:17 [id number]) Intravenous Solution Start Date 03/06/17 Start Time 11:16 End Date 03/06/17 End time 11:17 Total Infusion Time 1 Lorazepam (Ativan) 1 mg IVP ONCE ONE PRN Reason: Protocol Stop: 03/06/17 11:15 Last Admin: 03/06/17 11:30 Dose: 1 mg IVP Administration Document 03/06/17 11:30 (Rec: 03/06/17 11:55 [id number]) Charges for Administration # of IVP Administrations 1 Pneumococcal Polyvalent Vaccine (Pneumovax 23 Vaccine) 0.5 ml IM .ONCE ONE Stop: 03/06/17 14:20 Sodium Bicarbonate (Sodium Bicarbonate 8.4% (50 Meq) Syringe) 100 meq IVP ONCE ONE Stop: 03/06/17 11:36 Disposition/Present on Arrival - Present on Arrival Any Indicators Present on Arrival: No History of DVT/PE: No History of Uncontrolled Diabetes: No Urinary Catheter: No History of Decub. Ulcer: No History Surgical Site Infection Following: None - Disposition Have Diagnosis and Disposition been Completed?: Yes Disposition Time: 11:46 Patient Plan: ICU - Disposition Diagnosis: Congestive heart failure (CHF), Seizure, JUSTINA (acute kidney injury), Acute hyperkalemia, Metabolic acidosis Disposition: HOSPITALIZED Patient Problems: Current Active Problems Problem Status Onset JUSTINA (acute kidney injury) Acute Acute hyperkalemia Acute Metabolic acidosis Acute Congestive heart failure (CHF) Chronic Seizure Chronic Condition: CRITICAL
[2017-03-06 10:41] LABS: POTASSIUM 5.8 mmol/L (3.6-5.0)
[2017-03-06 10:43] LABS: INR 1.37 (0.93-1.08)
[2017-03-06 10:45] LABS: PARTIAL THROMBOPLASTIN TIME > 180.0 Seconds (23.7-30.8)
[2017-03-06] MEDS ORDERED: Dextrose 50% SYRINGE Inj (50 ml) IVP STA (10:47)
[2017-03-06] MEDS ORDERED: Insulin Regular 1 UNITS/0.01 ML ML IV STA (10:48)
[2017-03-06] MEDS ORDERED: Albuterol 0.083% Inhal Sol (2.5 mg/3 mL) UD IH STA (10:51)
[2017-03-06] MEDS ORDERED: Piperacillin/Tazobact 3.375 gm 100 ML IVPB STA (11:04)
[2017-03-06] MEDS ORDERED: Vancomycin 1gm in NS 250ml 250 ML IVPB STA (11:04)
[2017-03-06] MEDS ORDERED: Fosphenytoin 1,000 MG in Sodium Chloride 0.9% 50 ML IV STA (11:12)
[2017-03-06] MEDS ORDERED: Sodium Chloride 0.9% 1,000 ML IV STA (11:13)
[2017-03-06] MEDS ORDERED: Vancomycin 1gm in NS 250ml 1 GM/250 ML BAG IVPB STA (11:22)
[2017-03-06] MEDS ORDERED: levETIRAcetam 1,000 MG in Sodium Chloride 0.9% 100 ML IV ONE (11:34)
[2017-03-06] MEDS ORDERED: Sodium Bicarbonate (8.4%) 50 Meq Syringe IVP ONE (11:35)
[2017-03-06 12:44] LABS: ARTERIAL BLOOD GAS HCO3 13.5 mmol/L (21-28); ARTERIAL BLOOD GAS O2 CONTENT 15.4 ML/dl (15-23); ARTERIAL BLOOD HGB O2 SAT 93.2 % (95.0-98.0); CARBOXYHEMOGLOBIN 2.1 % (0.5-1.5); HHB 3.8 % (0-5); METHEMOGLOBIN 0.8 % (0.0-3.0)
[2017-03-06 12:48] LABS: ARTERIAL BLOOD GAS PH 7.17 (7.35-7.45)
[2017-03-06 14:19] VITALS: BMI 33.7
[2017-03-06] MEDS ORDERED: Pneumococcal 23-Valent Vaccine IM ONE (14:19)
[2017-03-06] MEDS ORDERED: Sodium Chloride 0.9% 1,000 ML IV SCH (14:30)
--- NOTE | 2017-03-06 14:44 | CT ---
PROCEDURE: CT HEAD WITHOUT CONTRAST. HISTORY: seizure/syncope/headache COMPARISON: 03/08/2015 TECHNIQUE: Axial computed tomography images were obtained through the head/brain without intravenous contrast. Radiation dose: Total exam DLP = 941 mGy-cm. This CT exam was performed using one or more of the following dose reduction techniques: Automated exposure control, adjustment of the mA and/or kV according to patient size, and/or use of iterative reconstruction technique. FINDINGS: HEMORRHAGE: No intracranial hemorrhage. BRAIN: No mass effect or edema. Bilateral frontal encephalomalacia is seen. This is unchanged. The brain parenchyma is otherwise unremarkable. There are no acute findings VENTRICLES: Unremarkable. No hydrocephalus. CALVARIUM: Frontal craniotomy changes are seen PARANASAL SINUSES: Unremarkable as visualized. No significant inflammatory changes. MASTOID AIR CELLS: Unremarkable as visualized. No inflammatory changes. OTHER FINDINGS: None. IMPRESSION: Chronic bilateral frontal encephalomalacia. No acute findings
--- NOTE | 2017-03-06 14:58 | CP.PCM.CON ---
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 Reason for consult: Hemodynamic instability Patient is a 61 y/o AA with PMH of stage IIIB small cell lung cancer ( On maintenance chemo with Alimta), recent PET scan with improvement, CAD with bare metal stent, Paroxysmal afib/flutter, COPD on 3 litters oxygen, PAD s/p angioplasty, severe pulmonary hypertension, cardiomyopathy, h/o benign brain tumor s/p resection, on seizure prophylaxis brought in by family 2nd to [facility]. As per patient and her son, patient had chemo with Dr Gomez on Friday, then yesterday she went for IV hydration. When patient got home, she passed out while walking to the bedroom. Patient was able to cath herself by holding onto the couches, thus patient didn't fall. However patient didn't remember the event. Patient then had tonic clonic seizures once she sat on the sofa. As per patient's son, it was difficult to arouse patient this morning. Denies hitting her head, admits to LOC. Denies bowel and bladder incontinent. Patient has not voided since yesterday. Patient c/o left sided flank pain during the chemo. Patient was with her normal self before the chemo. Patient admits to feeling weak, denies diarrhea, or vomiting, but admits to nausea. According tot he family patient has poor oral intake. Patient denies cp, fever, or chills. Admits to SOB, and cough productive with brown sputum. In the ED, Patient had another seizure episode in the ED, patient was giving 1 mg of ativan ivp, and loaded with 1 gm of keppra. Patient was also found to have lactic acidosis, was not febrile, no tachycardia, but had labile hypotension. code sepsis was called, patient was giving 3 litters total of NS in the ED, Vanco and zosyn for broadspectrum coverage. Patient was also placed on bipap for copd. As per patient's PMD, patient has h/o labile hypotension with sbp in the 90's when in the hospital, likely due to bp meds. PMH: stage IIIB small cell lung cancer ( On maintenance chemo with Alimta) for ~ 2 years, recent PET scan with improvement, CAD with bare metal stent since jul 2016, Paroxysmal afib/flutter, COPD on 3 litters oxygen, PAD s/p angioplasty, severe pulmonary hypertension, cardiomyopathy, h/o benign brain tumor s/p resection, on seizure prophylaxis for ~14, medication non compliance. PSH: bengn brain tumor resection, Cardiac cath and femoral stent. FMH: mom from cancer Social: former heavy tobacco smoker, quit 1 year ago, denies alcohol or illicit drug use. Patient ambulates with a 4 wheeled walker, retired. Home meds: Patient was suppose to be taking Dilantin ( as per pharmacy, last time patient filled out the medication was in Jun), keppra 500 mg bid, Lasix, atenolol, asa, Cardizem, amiodorone, folic acid. Allergy: diallo. Review of Systems - Review of Systems All systems: reviewed and no additional remarkable complaints except Review of Systems: As per HPI. Past Patient History - Infectious Disease Hx of Infectious Diseases: None - Tetanus Immunizations Tetanus Immunization: Unknown - Past Medical History & Family History Past Medical History?: Yes - Past Social History Smoking Status: Former Smoker Alcohol: None Drugs: Denies Home Situation {Lives}: With Family - CARDIAC Hx Cardiac Disorders: Yes (SVT) Hx Cardia Arrhythmia: Yes Hx Circulatory Problems: Yes Hx Congestive Heart Failure: Yes Hx Hypertension: Yes - PULMONARY Hx Respiratory Disorders: Yes (SMOKED CIGARETTES QUIT- < PPD) Hx Chronic Obstructive Pulmonary Disease (COPD): Yes Hx Emphysema: Yes Other/Comment: Left Lung CA - NEUROLOGICAL Hx Neurological Disorder: Yes Hx Dizziness: Yes - HEENT Hx HEENT Problems: Yes (eyeglasses) Hx Blind: No Hx Cataracts: No Hx Deafness: Yes (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 ear) Hx Epistaxis: No Hx Glaucoma: No Hx Macular Degeneration: No Other/Comment: ringing in ears - RENAL Hx Chronic Kidney Disease: No - ENDOCRINE/METABOLIC Hx Endocrine Disorders: No - HEMATOLOGICAL/ONCOLOGICAL Hx Blood Disorders: Yes Hx Anemia: Yes (blood transfusion) Hx Cancer: Yes (lung dx 04/2016) Hx Chemotherapy: Yes (LAST ON 03/04/17) Other/Comment: uterine ca over yrs ago. LAST HYDRATION ON 03/05/17 - INTEGUMENTARY Hx Dermatological Problems: No Hx Basil Cell: No Hx Eczema: No Hx Melanoma: No Hx Psoriasis: No Hx Squamous Cell: No Other/Comment: b/l leg edema - MUSCULOSKELETAL/RHEUMATOLOGICAL Hx Musculoskeletal Disorders: Yes Hx Falls: Yes Hx Unsteady Gait: Yes - GASTROINTESTINAL Hx Gastrointestinal Disorders: Yes (reflux/pancreatitis) - GENITOURINARY/GYNECOLOGICAL Hx Genitourinary Disorders: Yes (cervical,uterine ca) Other/Comment: hx fibroids had hyst due to fibroids - PSYCHIATRIC Hx Psychophysiologic Disorder: Yes Hx Anxiety: Yes Hx Substance Use: No (H/O DRUG OD) - SURGICAL HISTORY Hx Surgeries: Yes (STENT X 2) Hx Cholecystectomy: Yes Hx Coronary Stent: Yes (1HEART STENT,1 LEG STENT.) Hx Hysterectomy: Yes Other/Comment: polypectomy,. R chest port - ANESTHESIA Hx Anesthesia: Yes Hx Anesthesia Reactions: No Hx Malignant Hyperthermia: No Meds Allergies/Adverse Reactions: Allergies Allergy/AdvReac Type Severity Reaction Status Date / Time diallo Allergy Mild RASH Verified 03/06/17 13:51 - Medications Medications: Current Medications Levetiracetam 500 mg/ Sodium (Chloride) 105 mls @ 460 mls/hr IV Q12 DANICA Sodium Chloride (Sodium Chloride 0.9%) 1,000 mls @ 150 mls/hr IV .Q6H40M DANICA Pantoprazole Sodium (Protonix Inj) 40 mg IVP DAILY DANICA Physical Exam - Constitutional Appears: No Acute Distress, Older Than Stated Age, Chronically Ill - Head Exam Head Exam: ATRAUMATIC, NORMAL INSPECTION, NORMOCEPHALIC - Eye Exam Eye Exam: EOMI, Normal appearance, PERRL. absent: Nystagmus, Scleral icterus Pupil Exam: NORMAL ACCOMODATION, PERRL - ENT Exam ENT Exam: Mucous Membranes Moist, Normal Exam - Neck Exam Neck exam: Positive for: Normal Inspection. Negative for: Lymphadenopathy, Meningismus, Tenderness, Thyromegaly - Respiratory Exam Respiratory Exam: Rhonchi (diffusely), NORMAL BREATHING PATTERN. absent: Accessory Muscle Use, Decreased Breath Sounds, Rales, Wheezes, Respiratory Distress, Stridor - Cardiovascular Exam Cardiovascular Exam: REGULAR RHYTHM, RRR, +S1, +S2. absent: Bradycardia, Tachycardia, Gallop, Irregular Rhythm, JVD, Rubs, Systolic Murmur - GI/Abdominal Exam GI & Abdominal Exam: Normal Bowel Sounds, Soft. absent: Bruit, Diminished Bowel Sounds, Distended, Firm, Guarding, Hyperactive Bowel Sounds, Hypoactive Bowel Sounds, Mass, Organomegaly, Pulsatile Mass, Rebound, Rigid, Tenderness - Extremities Exam Extremities exam: Positive for: pedal edema (trace). Negative for: tenderness - Back Exam Back exam: NORMAL INSPECTION. absent: CVA tenderness (L), CVA tenderness (R), muscle spasm, tenderness, vertebral tenderness - Neurological Exam Neurological exam: Oriented x3, Reflexes Normal Additional comments: Patient is somnolent - Psychiatric Exam Psychiatric exam: Depressed - Skin Additional comments: Cold extremities. right sided port cath. Results - Vital Signs Recent Vital Signs: Last Vital Signs Temp 97.7 F 03/06/17 13:51 Pulse 80 03/06/17 14:32 Resp 18 03/06/17 13:51 BP 98/62 L 03/06/17 13:51 Pulse Ox 100 03/06/17 13:13 - Labs Result Diagrams: 03/06/17 09:45 03/06/17 09:45 Labs: Laboratory Results - last 24 hr 03/06/17 12:05 pCO2 37 pO2 86.0 HCO3 13.5 L ABG pH 7.17 L* ABG Total CO2 14.6 L ABG O2 Saturation 96.1 ABG O2 Content 15.4 ABG Base Excess -14.1 L ABG Hemoglobin 11.7 ABG Carboxyhemoglobin 2.1 H POC ABG HHb (Measured) 3.8 ABG Methemoglobin 0.8 ABG O2 Capacity 16.0 Hgb O2 Saturation 93.2 L FiO2 50.0 Assessment & Plan - Assessment and Plan (Free Text) Assessment: Patient is a 61 y/o with PMH significant for COPD on 3 L oxygen, small cell lung cancer on chemo, CAD with bare metal stent, h/o beningn brain tumor s/p resection presented with AMS with episodes of seizures, and was found to have acute renal failure with no clear etiology. Patient also had lactic acidosis in the ED with labile hypotension questionable for sepsis. Patient admitted in ICU for further management. Plan: Neurology: AMS - s/p multiple episodes of seizures at home and in the ED. Likely post ictal, r/o cva, versus metabolic/toxic encephalopathy - s/p 1 mg ativan in the ed and 1 gr keppra load. - CT head with b/l encephalomalacia - will continue with 500 mg bid of keppra. - Patient is non complaint with dilantin - patient appears obtunded, which may be due to Ativan, however will obtain ammonia level to r/o hepatic encephalopathy on the setting transaminitis. - Neurology consulted Pulm: Mild respiratory distress likely secondary to underlying COPD and diastolic CHF and pulm htn r/o pneumonia - pulm congestion on chest x-ray with questionable right sided infiltration - will obtain sputum culture - will observe on bipap for now - s/p antibiotics in the ed - Will continue with bronchodilators prn and standing dose. - will hold Lasix due to hypotension. - head of bed elevation above 45 degrees. Cardiology: hypotension likely secondary to anti-arrhythmic versus sepsis s/p 3 litters iv hydration will continue with hydration and consider pressors prn will hold bp meds. cardiology is consulted ID- r/o sepsis currently no clear etiology likely pneumonia, r/o urinary infection will obtain ua, ucx, bcx, and sputum culture. ID consulted s/p a dose zosyn and vanco in the ED. RENAL JUSTINA- prerenal versus post renal versus intrarenal with metabolic acidosis - will obtain renal ultrasound - s/p Quesada catheter with 100 cc of dark urine, bladder scan with 44 cc of urine - will obtain urine lytes - bicarb drip started for metabolic acidosis - will trend lactic acid - nephrology is consulted ENDO- maintain euglycemia GI- NPO due to mentation. ppi for gi prophylaxis HEME/ONC: h/h stable, heme onc consulted for stage 3b small cell cancer. DVT prophylaxis: PTT elevated on initial lab, will hold heparin and repeat PTT. Will start SCDs for dvt prophylaxis for now. Patient seen, examined and case discussed with Dr Mendoza. - Date & Time Date: 03/06/17 Time: 16:00 <Reji VILLANUEVA,[facility] H - Last Filed: 03/07/17 14:34> Meds - Medications Medications: Current Medications Albuterol/Ipratropium (Duoneb 3 Mg/0.5 Mg (3 Ml) Ud) 3 ml IH [id number] DANICA Last Admin: 03/07/17 13:09 Dose: Not Given Albuterol/Ipratropium (Duoneb 3 Mg/0.5 Mg (3 Ml) Ud) 3 ml IH Q2H PRN PRN Reason: Shortness of Breath Atenolol (Tenormin) 12.5 mg PO BID [facility] Last Admin: 03/07/17 09:40 Dose: Not Given Digoxin (Lanoxin) 0.125 mg PO MWF [facility] Last Admin: 03/07/17 09:43 Dose: 0.125 mg Diltiazem HCl (Cardizem Cd) 120 mg PO DAILY [facility] Last Admin: 03/07/17 09:39 Dose: Not Given Doxycycline Hyclate (Doryx) 100 mg PO Q12 DANICA PRN Reason: Protocol Stop: 03/15/17 22:01 Last Admin: 03/07/17 09:17 Dose: 100 mg Heparin Sodium (Porcine) (Heparin) 5,000 units SC Q8 [facility] PRN Reason: Protocol Last Admin: 03/07/17 05:19 Dose: 5,000 units Levetiracetam (Keppra 500mg Ivpb) 500 mg in 100 mls @ 400 mls/hr IVPB Q12 [facility] Last Admin: 03/07/17 09:18 Dose: 400 mls/hr Cefepime HCl (Maxipime 1gm) 1 gm in 100 mls @ 100 mls/hr IVPB Q24H DANICA PRN Reason: Protocol Stop: 03/15/17 17:46 Last Admin: 03/06/17 18:43 Dose: 100 mls/hr Lorazepam (Ativan) 2 mg IVP Q6H PRN; Protocol PRN Reason: Anxiety Ondansetron HCl (Zofran Inj) 4 mg IVP Q4H PRN PRN Reason: Nausea/Vomiting Pantoprazole Sodium (Protonix Inj) 40 mg IVP DAILY [facility] Last Admin: 03/07/17 09:17 Dose: 40 mg Phenytoin Sodium (Dilantin) 100 mg PO DAILY [facility] Last Admin: 03/07/17 10:23 Dose: 100 mg Tramadol HCl (Ultram) 50 mg PO TID PRN PRN Reason: Pain, severe (8-10) Results - Vital Signs Recent Vital Signs: Last Vital Signs Temp 97.4 F L 03/07/17 11:45 Pulse 93 H 03/07/17 11:01 Resp 18 03/07/17 11:01 BP 108/37 L 03/07/17 11:01 Pulse Ox 87 L 03/07/17 11:01 - Labs Result Diagrams: 03/07/17 09:18 03/07/17 06:24 Labs: Laboratory Results - last 24 hr 03/06/17 03/06/17 03/06/17 16:34 16:34 17:00 WBC RBC Hgb Hct MCV MCH MCHC RDW Plt Count MPV Gran % Lymph % (Auto) Collin % (Auto) Eos % (Auto) Baso % (Auto) Gran # Lymph # Collin # Eos # Baso # Neutrophils % (Manual) Lymphocytes % (Manual) Monocytes % (Manual) Platelet Evaluation Plt Clumps, EDTA Large Platelets Poikilocytosis (manual Anisocytosis (manual) Tear Drop Cells Rosie Cells PT INR APTT pCO2 pO2 HCO3 ABG pH ABG Total CO2 ABG O2 Saturation ABG O2 Content ABG Base Excess ABG Hemoglobin ABG Carboxyhemoglobin POC ABG HHb (Measured) ABG Methemoglobin ABG O2 Capacity VBG pH VBG pCO2 VBG HCO3 VBG Total CO2 VBG O2 Sat (Calc) VBG Base Excess VBG Potassium Hgb O2 Saturation Sodium Chloride Glucose Lactate FiO2 Potassium Carbon Dioxide Anion Gap BUN Creatinine Est GFR ( Amer) Est GFR (Non-Af Amer) Random Glucose Lactic Acid Calcium Phosphorus Magnesium Total Bilirubin AST ALT Alkaline Phosphatase Ammonia 42 H Lactate Dehydrogenase Total Creatine Kinase Troponin I Total Protein Albumin Globulin Albumin/Globulin Ratio Venous Blood Potassium Urine Color Light brown Urine Appearance Cloudy Urine pH 5.0 Ur Specific Easley >= 1.030 Urine Protein 100 H Urine Glucose (UA) Negative Urine Ketones Negative Urine Blood Large H Urine Nitrate Negative Urine Bilirubin Moderate H Urine Urobilinogen 1.0 H Ur Leukocyte Esterase Negative Urine RBC 20 - 25 Urine WBC 1 - 3 Ur Epithelial Cells 6 - 8 Urine Bacteria Many Ur Random Creatinine 137 U Random Total Protein Ur Random Sodium 20 Digoxin Phenytoin 03/06/17 03/06/17 03/06/17 17:00 17:00 17:00 WBC RBC Hgb Hct MCV MCH MCHC RDW Plt Count MPV Gran % Lymph % (Auto) Collin % (Auto) Eos % (Auto) Baso % (Auto) Gran # Lymph # Collin # Eos # Baso # Neutrophils % (Manual) Lymphocytes % (Manual) Monocytes % (Manual) Platelet Evaluation Plt Clumps, EDTA Large Platelets Poikilocytosis (manual Anisocytosis (manual) Tear Drop Cells [place] Cells PT INR APTT 25.0 pCO2 pO2 27 L HCO3 ABG pH ABG Total CO2 ABG O2 Saturation ABG O2 Content ABG Base Excess ABG Hemoglobin ABG Carboxyhemoglobin POC ABG HHb (Measured) ABG Methemoglobin ABG O2 Capacity VBG pH 7.18 L* VBG pCO2 54.0 VBG HCO3 20.2 L VBG Total CO2 21.9 L VBG O2 Sat (Calc) 39.2 L VBG Base Excess -8.6 L VBG Potassium 5.0 Hgb O2 Saturation Sodium 142 138.0 Chloride 107 107.0 Glucose 91 Lactate 3.2 H FiO2 21.0 Potassium 5.1 H Carbon Dioxide 20 L Anion Gap 20 BUN 44 H Creatinine 3.2 H Est GFR ( Amer) 18 Est GFR (Non-Af Amer) 15 Random Glucose 90 Lactic Acid Calcium 7.5 L Phosphorus Magnesium Total Bilirubin AST ALT Alkaline Phosphatase Ammonia Lactate Dehydrogenase 1865 H Total Creatine Kinase 52 Troponin I 0.04 Total Protein Albumin Globulin Albumin/Globulin Ratio Venous Blood Potassium 5.0 Urine Color Urine Appearance Urine pH Ur Specific E[place]ley Urine Protein Urine Glucose (UA) Urine Ketones Urine Blood Urine Nitrate Urine Bilirubin Urine Urobilinogen Ur Leukocyte Esterase Urine RBC Urine WBC Ur Epithelial Cells Urine Bacteria Ur Random Creatinine U Random Total Protein Ur Random Sodium Digoxin Phenytoin 03/06/17 03/06/17 03/06/17 22:00 22:30 22:30 WBC RBC Hgb Hct MCV MCH MCHC RDW Plt Count MPV Gran % Lymph % (Auto) Collin % (Auto) Eos % (Auto) Baso % (Auto) Gran # Lymph # Collin # Eos # Baso # Neutrophils % (Manual) Lymphocytes % (Manual) Monocytes % (Manual) Platelet Evaluation Plt Clumps, EDTA Large Platelets Poikilocytosis (manual Anisocytosis (manual) Tear Drop Cells [place] Cells PT INR APTT pCO2 32 L pO2 62.0 L 28 L HCO3 13.7 L ABG pH 7.24 L ABG Total CO2 14.7 L ABG O2 Saturation 90.5 L ABG O2 Content 15.3 ABG Base Excess -12.5 L ABG Hemoglobin 12.3 ABG Carboxyhemoglobin 2.2 H POC ABG HHb (Measured) 9.2 H ABG Methemoglobin 0.6 ABG O2 Capacity 16.9 VBG pH 7.16 L* VBG pCO2 48.0 VBG HCO3 17.1 L VBG Total CO2 18.6 L VBG O2 Sat (Calc) 38.8 L VBG Base Excess -11.5 L VBG Potassium 5.7 H Hgb O2 Saturation 88.1 L Sodium 137.0 Chloride 107.0 Glucose 87 Lactate 4.3 H* FiO2 32.0 21.0 Potassium Carbon Dioxide Anion Gap BUN Creatinine Est GFR ( Amer) Est GFR (Non-Af Amer) Random Glucose Lactic Acid Calcium Phosphorus Magnesium Total Bilirubin AST ALT Alkaline Phosphatase Ammonia Lactate Dehydrogenase 2073 H Total Creatine Kinase 55 Troponin I 0.06 D Total Protein Albumin Globulin Albumin/Globulin Ratio Venous Blood Potassium 5.7 H Urine Color Urine Appearance Urine pH Ur Specific Easley Urine Protein Urine Glucose (UA) Urine Ketones Urine Blood Urine Nitrate Urine Bilirubin Urine Urobilinogen Ur Leukocyte Esterase Urine RBC Urine WBC Ur Epithelial Cells Urine Bacteria Ur Random Creatinine U Random Total Protein Ur Random Sodium Digoxin Phenytoin 03/06/17 03/07/17 03/07/17 22:30 05:01 06:24 WBC RBC Hgb Hct MCV MCH MCHC RDW Plt Count MPV Gran % Lymph % (Auto) Collin % (Auto) Eos % (Auto) Baso % (Auto) Gran # Lymph # Collin # Eos # Baso # Neutrophils % (Manual) Lymphocytes % (Manual) Monocytes % (Manual) Platelet Evaluation Plt Clumps, EDTA Large Platelets Poikilocytosis (manual Anisocytosis (manual) Tear Drop Cells Rosie Cells PT INR APTT pCO2 pO2 HCO3 ABG pH ABG Total CO2 ABG O2 Saturation ABG O2 Content ABG Base Excess ABG Hemoglobin ABG Carboxyhemoglobin POC ABG HHb (Measured) ABG Methemoglobin ABG O2 Capacity VBG pH VBG pCO2 VBG HCO3 VBG Total CO2 VBG O2 Sat (Calc) VBG Base Excess VBG Potassium Hgb O2 Saturation Sodium 141 Chloride 106 Glucose Lactate FiO2 Potassium 6.0 H* D Carbon Dioxide 13 L Anion Gap 28 H BUN 48 H Creatinine 4.0 H Est GFR ( Amer) 14 Est GFR (Non-Af Amer) 11 Random Glucose 71 Lactic Acid Calcium 8.2 L Phosphorus 10.0 H Magnesium 1.9 Total Bilirubin 1.7 H AST 360 H D ALT 356 H Alkaline Phosphatase 166 H D Ammonia Lactate Dehydrogenase Total Creatine Kinase Troponin I Total Protein 5.7 L Albumin 3.6 Globulin 2.1 Albumin/Globulin Ratio 1.7 Venous Blood Potassium Urine Color Urine Appearance Urine pH Ur Specific Easley Urine Protein Urine Glucose (UA) Urine Ketones Urine Blood Urine Nitrate Urine Bilirubin Urine Urobilinogen Ur Leukocyte Esterase Urine RBC Urine WBC Ur Epithelial Cells Urine Bacteria Ur Random Creatinine 139 U Random Total Protein 370 Ur Random Sodium Digoxin < 0.4 L Phenytoin 03/07/17 03/07/17 03/07/17 06:24 06:24 06:24 WBC RBC Hgb Hct MCV MCH MCHC RDW Plt Count MPV Gran % Lymph % (Auto) Collin % (Auto) Eos % (Auto) Baso % (Auto) Gran # Lymph # Collin # Eos # Baso # Neutrophils % (Manual) Lymphocytes % (Manual) Monocytes % (Manual) Platelet Evaluation Plt Clumps, EDTA Large Platelets Poikilocytosis (manual Anisocytosis (manual) Tear Drop Cells Rosie Cells PT 18.4 H INR 1.70 H APTT 28.5 pCO2 pO2 HCO3 ABG pH ABG Total CO2 ABG O2 Saturation ABG O2 Content ABG Base Excess ABG Hemoglobin ABG Carboxyhemoglobin POC ABG HHb (Measured) ABG Methemoglobin ABG O2 Capacity VBG pH VBG pCO2 VBG HCO3 VBG Total CO2 VBG O2 Sat (Calc) VBG Base Excess VBG Potassium Hgb O2 Saturation Sodium Chloride Glucose Lactate FiO2 Potassium Carbon Dioxide Anion Gap BUN Creatinine Est GFR ( Amer) Est GFR (Non-Af Amer) Random Glucose Lactic Acid 7.6 H* Calcium Phosphorus Magnesium Total Bilirubin AST ALT Alkaline Phosphatase Ammonia Lactate Dehydrogenase Total Creatine Kinase Troponin I Total Protein Albumin Globulin Albumin/Globulin Ratio Venous Blood Potassium Urine Color Urine Appearance Urine pH Ur Specific [place] Urine Protein Urine Glucose (UA) Urine Ketones Urine Blood Urine Nitrate Urine Bilirubin Urine Urobilinogen Ur Leukocyte Esterase Urine RBC Urine WBC Ur Epithelial Cells Urine Bacteria Ur Random Creatinine U Random Total Protein Ur Random Sodium Digoxin Phenytoin < 3 L 03/07/17 03/07/17 06:24 09:18 WBC 16.5 H D RBC 4.60 Hgb 12.3 Hct 40.3 MCV 87.6 MCH 26.7 MCHC 30.5 L RDW 17.3 H Plt Count 259 MPV 10.7 Gran % 93.7 H Lymph % (Auto) 3.0 L Collin % (Auto) 3.2 Eos % (Auto) 0.0 L Baso % (Auto) 0.1 Gran # 15.48 H Lymph # 0.5 L Collin # 0.5 Eos # 0.0 Baso # 0.01 Neutrophils % (Manual) 93 H Lymphocytes % (Manual) 4 L Monocytes % (Manual) 3 Platelet Evaluation Normal Plt Clumps, EDTA Present Large Platelets Present Poikilocytosis (manual 1+ Anisocytosis (manual) 2+ Tear Drop Cells Slight Rosie Cells 1+ PT INR APTT pCO2 pO2 HCO3 ABG pH ABG Total CO2 ABG O2 Saturation ABG O2 Content ABG Base Excess ABG Hemoglobin ABG Carboxyhemoglobin POC ABG HHb (Measured) ABG Methemoglobin ABG O2 Capacity VBG pH VBG pCO2 VBG HCO3 VBG Total CO2 VBG O2 Sat (Calc) VBG Base Excess VBG Potassium Hgb O2 Saturation Sodium Chloride Glucose Lactate FiO2 Potassium Carbon Dioxide Anion Gap BUN Creatinine Est GFR ( Amer) Est GFR (Non-Af Amer) Random Glucose Lactic Acid Calcium Phosphorus Magnesium Total Bilirubin AST ALT Alkaline Phosphatase Ammonia Lactate Dehydrogenase Total Creatine Kinase Troponin I Total Protein Albumin Globulin Albumin/Globulin Ratio Venous Blood Potassium Urine Color Urine Appearance Urine pH Ur Specific E[place] Urine Protein Urine Glucose (UA) Urine Ketones Urine Blood Urine Nitrate Urine Bilirubin Urine Urobilinogen Ur Leukocyte Esterase Urine RBC Urine WBC Ur Epithelial Cells Urine Bacteria Ur Random Creatinine U Random Total Protein Ur Random Sodium Digoxin < 0.4 L Phenytoin Attending/Attestation - Attestation I have reviewed all pertinent clinical information: Yes Notes (Text): 03/07/17 14:32 61 y/o F w/ seizures x 2. Post ictal state. COPD on home o2, pulm HTN RV failure w/ COPD. Justina likely from ATn from chemo. Monitor urine output. Renal consult for possible HD. dvt p cc time 55 min
[2017-03-06] MEDS ORDERED: Dextrose 50% SYRINGE Inj (50 ml) ONE (16:15)
--- NOTE | 2017-03-06 16:18 | US ---
PROCEDURE: Ultrasound of the Kidneys HISTORY: JUSTINA COMPARISON: None available. TECHNIQUE: Grayscale imaging was performed. FINDINGS: RIGHT KIDNEY: Measures: 11.8 cm. Normal in size, contour and echogenicity. No stone, solid mass lesion or hydronephrosis visualized. There is a 3.0 x 3.0 x 3.3 cm simple cyst in the interpolar region and a 8 mm simple cyst more inferiorly in the interpolar region. LEFT KIDNEY: Measures: 11.2 cm. Normal in size, contour and echogenicity. No stone, solid mass lesion or hydronephrosis visualized. OTHER FINDINGS: None. IMPRESSION: 1. No hydronephrosis or nephrolithiasis. 2. Two simple cysts in the interpolar region of the right kidney, the larger measures 3.3 cm.
[2017-03-06 16:57] LABS: URINE BILIRUBIN MODERATE (NEGATIVE); URINE BLOOD LARGE (NEGATIVE); URINE GLUCOSE (UA) NEGATIVE (NEGATIVE); URINE KETONE NEGATIVE (NEGATIVE); URINE LEUKOCYTE ESTERASE NEGATIVE Leu/uL (NEGATIVE); URINE PROTEIN 100 mg/dL (<30 mg/dL)
[2017-03-06 17:05] LABS: URINE APPEARANCE CLOUDY (CLEAR)
[2017-03-06 17:06] LABS: URINE COLOR LIGHT BROWN (YELLOW)
[2017-03-06 17:13] LABS: VENOUS BLOOD GAS BASE EXCESS -8.6 mmol/L (0.0-2.0); VENOUS BLOOD PH 7.18 (7.32-7.43)
[2017-03-06 17:18] LABS: CALCIUM 7.5 mg/dL (8.4-10.5); POTASSIUM 5.1 mmol/L (3.6-5.0)
[2017-03-06 17:18] LABS: URINE RBC 20 - 25 /hpf (0-2)
[2017-03-06 17:19] LABS: URINE BACTERIA MANY (NEG)
[2017-03-06 17:30] LABS: TROPONIN I 0.04 ng/mL
[2017-03-06] MEDS ORDERED: Cefepime 1gm in NS 100ml 1 GM/100 ML BAG IVPB SCH (17:45)
[2017-03-06] MEDS: Albuterol-Ipratrop 3 mg / 0.5 (3 ml) UD IH SCH (21:11)
[2017-03-06] MEDS: levETIRAcetam 500mg IVPB 500 MG/100 ML BAG IVPB SCH (21:19)
--- NOTE | 2017-03-06 21:19 | CARD ---
APPROVED REPORT EKG Measurement Heart [id number] <Conclusion> Normal sinus rhythm Right axis deviation Abnormal QRS-T angle, consider primary T wave abnormality Abnormal ECG
[2017-03-06] MEDS ORDERED: levETIRAcetam 500 MG in Sodium Chloride 0.9% 100 ML IV SCH (22:00)
[2017-03-06 22:06] LABS: ARTERIAL BLOOD GAS HCO3 13.7 mmol/L (21-28); ARTERIAL BLOOD GAS O2 CAPACITY 16.9 mL/dl (16-24); ARTERIAL BLOOD GAS O2 CONTENT 15.3 ML/dl (15-23); ARTERIAL BLOOD GAS PH 7.24 (7.35-7.45); ARTERIAL BLOOD HGB O2 SAT 88.1 % (95.0-98.0); CARBOXYHEMOGLOBIN 2.2 % (0.5-1.5); HHB 9.2 % (0-5); METHEMOGLOBIN 0.6 % (0.0-3.0)
--- NOTE | 2017-03-06 22:35 | CON ---
DATE: NEPHROLOGY CONSULTATION HISTORY OF PRESENT ILLNESS: A 61-year-old female with past medical history of stage IIIB small cell cancer, on maintenance chemotherapy with pemetrexed, CAD status post stent, paroxysmal atrial fibrillation/flutter, COPD on 3 liters home O2, severe pulmonary hypertension, PAD status post angioplasty, and known seizure disorder, brought to ED by family after being found to have altered mental status, found also to have acute renal failure. Nephrology being consulted for the same. The patient last had chemotherapy with pemetrexed on 03/04/2017 (2 days ago). The patient subsequently had a session of IV fluids given yesterday. Per family, she is always lethargic following chemotherapy. The patient reports that she was in her usual state of health until yesterday when she reportedly had a seizure. The patient was brought to the ED today and reportedly had another seizure in the ED, was given 1 mg of Ativan IV push and loaded with 1 g of Keppra. The patient also was found to have lactic acidosis and was given 3 liters normal saline as part of "sepsis," was also given vancomycin and Zosyn in the ED. The patient was placed on BiPAP as she was found to be hypercapnic. The patient is able to give history, reports being in her usual state of health up until current events, had been eating well. Denies any nausea, vomiting or diarrhea. Her shortness of breath is at baseline as is her leg swelling. The patient is on 3-1/2 liters O2 via nasal cannula. Denies any chest pain or palpitations. The patient has been having decreased urine output since yesterday. PAST MEDICAL HISTORY: As above. SOCIAL HISTORY: Previous smoker. FAMILY HISTORY: Mother with hypertension and breast cancer. REVIEW OF SYSTEMS: GENERAL: Denies night sweats or fevers. HEENT: Denies change in vision. Denies sore throat or runny nose. RESPIRATORY: Has persistent cough that has been going on for several months. CARDIOVASCULAR: Per HPI. GASTROINTESTINAL: Per HPI. GENITOURINARY: Denies any dysuria. MUSCULOSKELETAL: Reporting right lower back pain since past couple of days. Denies taking any pain medications. PSYCHIATRIC: Denies any depression or anxiety. NEUROLOGIC: Denies any headaches or dizziness. VITALS: This evening, blood pressure 108/47, heart rate 80, respirations 19. PHYSICAL EXAMINATION: GENERAL: No distress. Conversing coherently in full sentences, although is somewhat lethargic. HEENT: Moist mucous membranes. Nonicteric. RESPIRATORY: Tachypneic, otherwise lungs clear to auscultation bilaterally. No rales. No rhonchi. No wheezes. CARDIOVASCULAR: S1 and S2 normal, however, muffled heart sounds. No obvious murmurs, gallops or rubs. GASTROINTESTINAL: Abdomen soft, nontender, nondistended. GENITOURINARY: No bladder distention. SKIN: Cool distal extremities with fingertips mildly cyanotic. EXTREMITIES: [id number] bilateral lower leg edema. NEUROLOGIC: No tremor of outstretched hands, however, asterixis is present. PSYCHIATRIC: Normal mood, normal affect. LABORATORY DATA: CBC: WBC 7.0, hemoglobin 13.1, hematocrit 42.0, platelets 264. Chemistry panel on presentation; sodium 139, potassium 5.8, chloride 105, bicarb 16, BUN 43, creatinine 3.4, glucose 127, calcium 8.3, AST 95, ALT 99, lactate 1148. Total CK 54. ProBNP 22,100. UA; specific gravity greater than 1.030. Urine protein 100 mg/dL, large blood with 20-25 rbc's per high-power field. Urine sodium 20, urine creatinine 137. Urine microscopy directly observed, diffuse granular debris. Frequent granular casts also seen, however, not as many as would be expected with tubular injury, numerous rbc's too many to count. ASSESSMENT AND PLAN: 1. Acute renal failure, likely secondary to acute tubular necrosis due to chemotherapy with pemetrexed. Acute tubular necrosis has been reported in the literature and is usually reversible. The patient with mild hyperkalemia initially which has since improved. In the setting of severe pulmonary hypertension, will not to give more IV fluids as this can cause RV overload. PLAN: Continue to monitor renal function. Monitor inputs and outputs strictly. Avoid nephrotoxic agents. Can give Lasix 40 mg IV push (use escalating doses if patient remains oliguric) as needed if hyperkalemia again seen. No overt indication to initiate HD at this time, however, if patient remains oliguric may need temporary HD to avoid worsening RV overload; 2. Pulmonary hypertension, severe per previous echocardiogram, which shows RV systolic pressure of well over 100. The patient has already received an abundance of IV fluids. Recommend to hold off further IV fluids as mentioned above in order to avoid RV overload as the patient already had flattening of cardiac septum on previous echocardiogram. 3. Hypercapnic respiratory failure, likely acute on chronic with the patient having inadequate metabolic compensation in the setting of acute renal failure. Agree with keeping the patient on BiPAP. Avoid giving bicarbonate-containing fluids to correct any metabolic acidosis at this point as this may worsen the hypercapnia. 4. Lactic acidosis seen in the setting of seizure, already trending downward. Again should avoid giving bicarbonate-containing fluids and should instead focus on correcting hypercapnia. 5. Hematuria, likely due to traumatic Quesada placement as the rbc's seen on microscopy are mostly isomorphic and none classically dysmorphic. We will repeat UA once urine has cleared. 6. Systemic inflammatory response syndrome/sepsis. The patient with bacteria on urinalysis, although no significant pyuria. Placed on antibiotics empirically, awaiting culture results. Currently on doxycycline and cefepime. No dose adjustment needed for doxycycline. Cefepime correctly dosed at q. 24 hours for acute renal failure. Thank you for this consult. We will be following closely. Gustavo Cervantes MD [facility]
[2017-03-06 22:37] LABS: VENOUS BLOOD GAS BASE EXCESS -11.5 mmol/L (0.0-2.0); VENOUS BLOOD PH 7.16 (7.32-7.43)
--- NOTE | 2017-03-06 23:00 | HP ---
CHIEF COMPLAINT: Severe lethargy and weakness for two days. HISTORY OF PRESENT ILLNESS: A 62-year-old female with history of severe COPD, coronary artery disease, pulmonary hypertension, stage IIIB small cell lung cancer, who was brought to the emergency by ambulance. The patient had chemotherapy two days ago, she became and weak after chemotherapy, she was evaluated yesterday in acute care nursing assistant office and had IV fluids for hydration, but did not feel better. At home, the patient was very weak and almost passed out as per the family members, later on the patient developed tonic-clonic seizures. The patient was very lethargic this morning and confused as per family members. She was brought to the hospital where she developed another two episodes of tonic-clonic seizures treated with IV Ativan and Keppra and IV fluid. She later on denied any fever, diarrhea, and abdominal pain. Her appetite for the last two days was decreased. The patient has chronic productive cough, but now this increased sputum of brown color. PAST MEDICAL HISTORY: Severe COPD with multiple admission for exacerbation and pneumonia over the last few years, history of stage IIIB small cell lung cancer stable on recent PET scan, but currently undergoing chemotherapy every three weeks, history of coronary artery disease status post cardiac cath with stent six months ago, history of PVD with stents, history of pulmonary hypertension, and severe history of benign brain mass excised in 2010, the patient is presently on prophylactic antiseizure medication Keppra and Dilantin apparently noncompliant with Dilantin treatment, but taking Keppra daily. PAST SURGICAL HISTORY: Significant for history of benign brain excision in 2011 and cardiac catheterization. FAMILY HISTORY: Significant for history of cancer on mother's side and history of coronary artery disease. SOCIAL HISTORY: The patient is ex-smoker, she quit one-year ago. She denied any alcohol or drug use. The patient is on disability. She was ambulatory until this admission and independent activity of daily living, she lives with her daughter. REVIEW OF SYSTEMS: There is no history of seizure, there is history of decreased appetite for the last two days. There is history of fatigue and weakness. There is history of chronic productive cough. She denies any chest pain or heart palpitations. There is no history of vomiting, nausea, vomiting, or diarrhea. There is no history of hematuria. Her urine output the last couple of days was very minimal. There is no history of headache, loss of consciousness, blurry vision, or weakness. PHYSICAL EXAMINATION GENERAL: The patient is in intensive care unit. The patient is lethargic, but arousable on BiPAP machine during evaluation. VITAL SIGNS: Temperature 98.6, her blood pressure 81/67 in the emergency room increased to 104/74 after IV fluids, her pulse was 85 and regular, respiratory rate is 20, her oxygen saturation was 90%. HEENT: Head was normocephalic, atraumatic. Oral mucosa was moist. Eyes with pupils reactive to light. NECK: Supple. No neck masses. LUNGS: Bilateral rhonchi. Decreased breath sounds bilaterally. HEART: Regular rhythm and rate. ABDOMEN: Soft, nontender, and nondistended. EXTREMITIES: Cold with no edema or cyanosis. DIAGNOSTIC TESTS: In the emergency room CBC; WBC 7, hemoglobin 13.1, hematocrit 41, platelet count 264. chemistry significant for sodium 139, potassium 5.8, she had high BUN 43 and creatinine 3.4, which is new. Her glucose was 127. Liver enzymes were elevated. AST 95, ALT 99. She had BNP at 22,000. Her blood test showed acidosis with high lactate. Chest x-ray was negative for any acute infiltration. CT of the head showed chronic bilateral encephalomalacia and EKG showed normal sinus rhythm with non-specific ST-T changes. The patient was treated with IV fluids, Keppra, and Ativan for seizures. ASSESSMENT: 1. A 61-year-old female with multiple chronic medical problems, severe chronic obstructive pulmonary disease, pulmonary hypertension, coronary artery disease, and stage IIIB small cell lung cancer, presented with acute renal failure with uncertain etiology. 2. Hypotension must rule out sepsis. 3. Change of mental status most probably metabolic etiology. 4. Exacerbation of chronic obstructive pulmonary disease rule out pneumonia. 5. Recurrent seizures possibly due to metabolic encephalopathy. PLAN OF TREATMENT: The patient will remain in intensive care unit with close observation, we will continue with IV fluids, we will continue close monitoring for urine outpatient. The patient had septic workup with PEREZ cultures, started on vancomycin and Zosyn in emergency room. Infectious disease specialist, community education coordinator, neurologist, and pull socket assembler were called in consult. The patient's condition was discussed with family members. The patient's condition is very serious. Keira Keith MD MTDM[facility]
[2017-03-06 23:04] LABS: TROPONIN I 0.06 ng/mL
--- NOTE | 2017-03-07 00:08 | CON ---
The patient is in the ICU 129, bed 5. CHIEF COMPLAINT: Cough and the patient had seizure today. 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 The patient is now admitted with acute kidney injury, hyperkalemia, lactic acidosis and the patient states she has been having cough and she was weak and she did have hypotension on admission and concerned about infectious disease process. She states she did not have any fevers. She did not have any chills. She has mild headache, but no chest pain. She does have cough, mild shortness of breath. No abdominal pain or diarrhea. No dysuria or frequency. PAST MEDICAL HISTORY: Significant for non-small cell lung cancer, unresectable stage IIIB with metastasis and chronic obstructive lung disease, uterine cancer, dyslipidemia, coronary artery disease with bare-metal stents and AFib and atrial flutter and severe pulmonary hypertension, cardiomyopathy and brain tumor. PAST SURGICAL HISTORY: Significant for cholecystectomy, and the patient does have a Port-A-Cath and the patient did have a craniotomy. ALLERGIES: THE PATIENT HAS ALLERGIC TO SYED. MEDICATIONS AT HOME: Include, the patient is to be on diltiazem, the patient is on Solu-Medrol and Keppra, the patient is also on sildenafil for her pulmonary hypertension. The Keppra is for seizure prophylaxis. The patient is also on Dilantin, phenytoin, omeprazole, Singulair and the patient is on gabapentin, Lasix, folic acid, Lipitor, atenolol and amiodarone. PHYSICAL EXAMINATION: GENERAL: She is in bed. She has periods of confusion, although her family around and helps her with the history. VITAL SIGNS: Temperature of 97, pulse of 80, respiratory rate of 18 and blood pressure was down to 81/67. HEENT: Unremarkable. NECK: Supple. LUNGS: Decreased breath sounds. HEART: Normal S1 and S2. ABDOMEN: Soft. LABORATORY DATA: Reveals a white count of 7, hemoglobin of 13 and platelets of 264. The patient has 80% granulocytosis. Coagulation is noted and chemistry reveals the patient's BUN of 43, creatinine of 3.4. Her creatinine in the last as in January was 1.0. Urinalysis reveals many bacteria, only 1 to 3 wbc's. Her Dilantin level is less than 3. Microbiology is pending. The patient's sputum and urine cultures have been ordered. The patient had a chest x-ray, which is negative. A CAT scan of the head which no acute findings, it does show chronic encephalomalacia and chronic bilateral frontal encephalomalacia. ASSESSMENT AND PLAN: This is a 61-year-old female with chronic obstructive lung disease and stage IIIB non-small cell unresectable lung cancer on chemotherapy and uterine cancer, dyslipidemia, coronary artery disease, bare-metal stent, atrial fibrillation, atrial flutters, severe pulmonary hypertension, cardiomyopathy, brain tumor, who is admitted with cough and new seizure. 1. New seizure. 2. Acute kidney injury. 3. Must rule out healthcare-associated pneumonia. Ren cultures have been ordered, and we will order a procalcitonin and a CAT scan of the chest with no contrast, and we will start the patient empirically on doxycycline and Maxipime. We will give a dose of vancomycin because the patient does have a Port-A-Cath to rule out bacteremia pending ren culture results. We will follow closely with you and we will make further recommendations. Waiting for neurology consultation, Dr. Worthy. We will follow with you. Delvis Tinsley MD
--- NOTE | 2017-03-07 00:23 | CON ---
DATE: 03/06/2017 This is Aviva Feliciano's consult in the intensive care unit. For Dr. Gomez. CHIEF COMPLAINT: Shortness of breath and weakness. HISTORY OF PRESENT ILLNESS: The patient is a 61-year-old female was admitted by the emergency room with syncopal episode last night with seizures 2 times early this morning. She also has shortness of breath, chest discomfort, generalized weakness with low blood pressure. With this, the patient is known to suffer from stage IIIB non-small cell CA of the lung with mediastinal involvement status post chemotherapy with Alimta with Dr. Gomez 2 days prior with treatment with hydration yesterday along with Zofran, with the patient now admitted to the intensive care unit, seems now sitting up in bed, feeling better. Upon review of her list of medications from the emergency room, the patient reports she is taking amiodarone and digoxin as per Dr. Maguire; however, these medicines are not listed on the home medications from the emergency room commercial loan coordinator of her evaluation there. This will be clarified with Dr. Maguire. Yesterday in the office after hydration was given, the patient felt some nausea for which IV Zofran was given with the patient feeling better, taken home by her family with recommendation to followup stat to the emergency room should she not improve at home; however, she requested to go home. At that time, since she feel better and was allowed to home. PAST MEDICAL HISTORY: As above for stage IIIB non-small cell CA of the lung with mediastinal involvement, atrial fibrillation which is chronic, history of SVT, PVD, seizure disorder, benign brain tumor removed in 2013, femoral stent for peripheral vascular disease, pulmonary hypertension, COPD, and congestive cardiomyopathy. The non-small cell CA of the lung was nonresectable status post chemoradiation, on maintenance chemotherapy with bare-metal stenting done in the past with coronary artery stenosis and the patient on continuous portable oxygen. MEDICATIONS: Most recently included Brovana; Cardizem; digoxin; amiodarone; Dilantin which she takes safely she reports; Ecotrin; Keppra; Lasix; Lipitor; metoprolol; Pepcid; Plavix; Revatio; Robitussin with Codeine and Tylenol with 427 Medrol along with Neurontin and folic acid and Daliresp listed on her medicines from the emergency room visit. ALLERGIES: TO SYED, BUT NO MEDICATIONS. FAMILY HISTORY AND SOCIAL HISTORY: She smoked a pack a day for 40 years, quit one year ago. Denies alcohol or drug use. She lives with her daughter, otherwise noncontributory. REVIEW OF SYSTEMS: A 12-point review of systems was done which is negative for questioning except as above. She ambulates with measured gait with a walker. OBJECTIVE/PHYSICAL EXAMINATION: VITAL SIGNS: Temperature was 97.7, pulse of 85, respirations 15, blood pressure 108/47 with a pulse oximetry 91%. HEENT: Oxygen is on. NECK: Supple. HEART: Regular rate, occasional ectopic beats. LUNGS: Scattered rhonchi, occasional with decreased breath sounds. ABDOMEN: Obese, soft and nontender. EXTREMITIES: +1 edema in lower extremities. NEUROLOGIC: Awake and alert. SKIN: Otherwise warm, dry and clear. LABORATORY DATA: The patient's labs were done with a white blood cell count of 7.0, hemoglobin 13.1, hematocrit of 42.0 and platelet count 264,000 with chem metabolic panel initially showing a potassium of 5.8, corrected to 5.1 with a BUN of 43, repeat BUN of 44; creatinine of 3.4, repeat of 3.2; calcium of 7.5. AST of 95, ALT of 99, ammonia level of 42. LDH of 1865. Brain natriuretic peptide of 22,000 with a troponin of 0.04. Her blood testing also include an INR 1.37 with a PTT of 25. Her ABG showed a pO2 of 86, pH of 7.17, which was repeated. Urine showed a large amount of blood, moderate amount of bilirubin. Dilantin level was less than 3. The patient's other testing included a chest x-ray, which was read as no active disease. CAT scan of her head was done, which was read as chronic bilateral frontal encephalomalacia. No acute findings, with the patient status post frontal craniotomy. Renal ultrasound was done, it was read as no or nephrolithiasis, two simple cysts in the interpolar region of the right kidney, larger measuring 3.3 cm. The patient had an EKG, which is pending. ASSESSMENT: Acute renal failure, seizure disorder, stage IIIB non-small cell carcinoma of the lung status post treatment with Alimta 3 days prior. She has mediastinal involvement of her cancer, atrial fibrillation, history of supraventricular tachycardia, peripheral vascular disease, benign brain tumor removed in 2013, femoral stent, peripheral vascular disease, pulmonary hypertension, chronic obstructive pulmonary disease, congestive cardiomyopathy, hypoxemia for which she needs continues oxygen. PLAN: The plan for this patient, after conversation with Dr. Gomez, is to continue present medical regimen with consults with Dr. Maguire, Cardiology; Dr. Martinez, Pulmonology; Dr. Tinsley, Infectious Disease; Dr. Cervantes, Renal; and Dr. Worthy, Neurology. We will also recommend for the patient to be determined by her tennis instructor whether she needs to restart her amiodarone as this is not on her list of medications at this point, this was related to the nurse. We will also recommend that her Dilantin level be repeated after adjustment of her dosing as per Dr. Worthy. We will ask her digoxin level to be done on blood already drawn or the next time they will draw blood with this restarted also as per Dr. Maguire's recommendation, with her renal function to be monitored as per Dr. Cervantes with prognosis for this patient guarded. We will monitor clinically with labs. There is also CT scan of the chest pending as per Dr. Tinsley. BiPAP also recommended. Aaron Valadez MD
[2017-03-07] MEDS: Albuterol-Ipratrop 3 mg / 0.5 (3 ml) UD IH SCH ×4 (01:29→20:10)
--- NOTE | 2017-03-07 05:00 | CON ---
DATE: HISTORY OF PRESENT ILLNESS: This is a 61-year-old black female with past medical history of lung cancer and coronary artery disease and atrial fibrillation, COPD, hypertension, cardiomyopathy, history of brain tumor, status post resection and under the chemo with Dr. Gomez. The patient had seizure tonic-clonic and lost consciousness, patient. The patient was given Ativan and also started on Keppra. Past medical history of lung CA, coronary artery disease, atrial fibrillation, pulmonary hypertension, cardiomyopathy, and seizure. PAST MEDICAL HISTORY: As above. SOCIAL HISTORY: Heavy smoker, quit one year ago. ALLERGIES: PLAVIX. REVIEW OF SYSTEMS: A 10-point review of systems was negative. PHYSICAL EXAMINATION HEENT: Normocephalic and atraumatic. NECK: Supple. NEUROLOGIC: Awake, and oriented to self. No aphasia. Cranial nerves II through XII were tested. Pupils are reactive. EOM intact. Visual field full. No facial asymmetry. Tongue midline. Motor examination, spontaneous movement of the extremities noted. Deep tendon reflexes 1+. Plantars are downgoing. Sensory appears intact. Cerebellar, gait deferred. LABORATORY DATA: WBC 7, hemoglobin 13.1, hematocrit 42 and platelet 264. Sodium 139, potassium 5.8, chloride 105, CO2 of 16, glucose 127, BUN 43 and creatinine 3.4. IMPRESSION: Seizure disorder with multiple medical problems and blood pressure was 98/62. The patient was started on Keppra and continue present management and CAT scan did not show any bleed or tumor. The patient was also given Ativan p.r.n. Jacob Worthy MD
[2017-03-07] MEDS ORDERED: Sodium Chloride 0.9% 500 ML IV SCH (05:30)
[2017-03-07 06:42] LABS: INR 1.7 (0.93-1.08); PARTIAL THROMBOPLASTIN TIME 28.5 Seconds (23.7-30.8)
[2017-03-07 06:58] LABS: ALB/GLOB RATIO 1.7 (1.1-1.8); BILIRUBIN,TOTAL 1.7 mg/dL (0.2-1.3); CALCIUM 8.2 mg/dL (8.4-10.5); MAGNESIUM 1.9 mg/dL (1.7-2.2); TOTAL PROTEIN 5.7 g/dL (5.8-8.3)
[2017-03-07] MEDS: levETIRAcetam 500mg IVPB 500 MG/100 ML BAG IVPB SCH ×2 (09:18→23:29)
--- NOTE | 2017-03-07 09:20 | CP.PCM.PN ---
<Leah Morillo - Last Filed: 03/07/17 09:44> Subjective - Date & Time of Evaluation Date of Evaluation: 03/07/17 Time of Evaluation: 09:11 - Subjective Subjective: Neurology Progress Note for Luca Yoo PGY2 Patient seen and examined at bedside. As per nursing, there were no acute overnight events. There was no seizure activity this morning. Patient is awake and alert this morning. She denies having any headache, CP, SOB, n/v/d, numbness /tingling, fever or chills. She reports when she had this recent seizure she lost consciousness and that has not happened with previous seizures. She has not had seizures for several years. Objective - Vital Signs/Intake and Output Vital Signs (last 24 hours): Temp Pulse Resp BP Pulse Ox 98.6 F 87 18 113/75 88 L 03/06/17 20:00 03/07/17 06:00 03/07/17 07:18 03/07/17 05:00 03/07/17 06:00 Intake and Output: 03/07/17 03/07/17 06:59 18:59 Intake Total 1240 Output Total 50 Balance 1190 - Medications Medications: Current Medications Albuterol/Ipratropium (Duoneb 3 Mg/0.5 Mg (3 Ml) Ud) 3 ml [id number] Last Admin: 03/07/17 07:02 Dose: 3 ml Albuterol/Ipratropium (Duoneb 3 Mg/0.5 Mg (3 Ml) Ud) 3 ml IH Q2H PRN PRN Reason: Shortness of Breath Doxycycline Hyclate (Doryx) 100 mg PO Q12 [facility] PRN Reason: Protocol Stop: 03/15/17 22:01 Last Admin: 03/06/17 21:19 Dose: 100 mg Heparin Sodium (Porcine) (Heparin) 5,000 units SC Q8 DANICA PRN Reason: Protocol Last Admin: 03/07/17 05:19 Dose: 5,000 units Levetiracetam (Keppra 500mg Ivpb) 500 mg in 100 mls @ 400 mls/hr IVPB Q12 DANICA Last Admin: 03/06/17 21:19 Dose: 400 mls/hr Cefepime HCl (Maxipime 1gm) 1 gm in 100 mls @ 100 mls/hr IVPB Q24H [facility] PRN Reason: Protocol Stop: 03/15/17 17:46 Last Admin: 03/06/17 18:43 Dose: 100 mls/hr Lorazepam (Ativan) 2 mg IVP Q6H PRN; Protocol PRN Reason: Anxiety Ondansetron HCl (Zofran Inj) 4 mg IVP Q4H PRN PRN Reason: Nausea/Vomiting Pantoprazole Sodium (Protonix Inj) 40 mg IVP DAILY [facility] - Labs Labs: 03/07/17 06:24 PT 18.4 Seconds (9.9-11.8) H 03/07/17 06:24 INR 1.70 (0.93-1.08) H 03/07/17 06:24 APTT 28.5 Seconds (23.7-30.8) 03/07/17 06:24 - Constitutional Appears: No Acute Distress - Head Exam Head Exam: ATRAUMATIC, NORMAL INSPECTION, NORMOCEPHALIC - Eye Exam Eye Exam: Normal appearance, PERRL Pupil Exam: NORMAL ACCOMODATION, PERRL - ENT Exam ENT Exam: Mucous Membranes Moist - Neck Exam Neck Exam: Full ROM - Respiratory Exam Respiratory Exam: Clear to Ausculation Bilateral, NORMAL BREATHING PATTERN. absent: Rales, Rhonchi - Cardiovascular Exam Cardiovascular Exam: REGULAR RHYTHM, +S1, +S2. absent: Gallop, Rubs, Murmur Additional comments: R chest port in place- clean and dry - GI/Abdominal Exam GI & Abdominal Exam: Soft, Normal Bowel Sounds. absent: Rigid, Tenderness, Mass , Rebound - Extremities Exam Extremities Exam: Full ROM, Normal Inspection. 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 Seizures and AMS can be secondary to uremia and metabolic derangements. Patient also reports she didnt take her seizure medications for a couple days due to nausea from chemotherapy. Plan: - Continue Keppra 500 BID - Will start on home Dilantin 100mg PO daily - EEG done - Seizure precaution, aspiration precaution - Ativan prn seizures - Continue to monitor electrolytes (correct as needed) and kidney function - Physical therapy Case seen, discussed and reviewed with attending, Dr. Worthy. Luca Morillo PGY2 <Fausto Worthy - Last Filed: 03/07/17 13:35> Objective - Vital Signs/Intake and Output Vital Signs (last 24 hours): Temp Pulse Resp BP Pulse Ox 97.4 F L 93 H 18 108/37 L 87 L 03/07/17 11:45 03/07/17 11:01 03/07/17 11:01 03/07/17 11:01 03/07/17 11:01 Intake and Output: 03/07/17 03/07/17 06:59 18:59 Intake Total 1240 Output Total 50 Balance 1190 - Medications Medications: Current Medications Albuterol/Ipratropium (Duoneb 3 Mg/0.5 Mg (3 Ml) Ud) 3 ml [id number] Last Admin: 03/07/17 13:09 Dose: Not Given Albuterol/Ipratropium (Duoneb 3 Mg/0.5 Mg (3 Ml) Ud) 3 ml IH Q2H PRN PRN Reason: Shortness of Breath Atenolol (Tenormin) 12.5 mg PO BID [facility] Last Admin: 03/07/17 09:40 Dose: Not Given Digoxin (Lanoxin) 0.125 mg PO MWF [facility] Last Admin: 03/07/17 09:43 Dose: 0.125 mg Diltiazem HCl (Cardizem Cd) 120 mg PO DAILY [facility] Last Admin: 03/07/17 09:39 Dose: Not Given Doxycycline Hyclate (Doryx) 100 mg PO Q12 DANICA PRN Reason: Protocol Stop: 03/15/17 22:01 Last Admin: 03/07/17 09:17 Dose: 100 mg Heparin Sodium (Porcine) (Heparin) 5,000 units SC Q8 DANICA PRN Reason: Protocol Last Admin: 03/07/17 05:19 Dose: 5,000 units Levetiracetam (Keppra 500mg Ivpb) 500 mg in 100 mls @ 400 mls/hr IVPB Q12 [facility] Last Admin: 03/07/17 09:18 Dose: 400 mls/hr Cefepime HCl (Maxipime 1gm) 1 gm in 100 mls @ 100 mls/hr IVPB Q24H [facility]AN[facility] PRN Reason: Protocol Stop: 03/15/17 17:46 Last Admin: 03/06/17 18:43 Dose: 100 mls/hr Lorazepam (Ativan) 2 mg IVP Q6H PRN; Protocol PRN Reason: Anxiety Ondansetron HCl (Zofran Inj) 4 mg IVP Q4H PRN PRN Reason: Nausea/Vomiting Pantoprazole Sodium (Protonix Inj) 40 mg IVP DAILY [facility] Last Admin: 03/07/17 09:17 Dose: 40 mg Phenytoin Sodium (Dilantin) 100 mg PO DAILY [facility] Last Admin: 03/07/17 10:23 Dose: 100 mg Tramadol HCl (Ultram) 50 mg PO TID PRN PRN Reason: Pain, severe (8-10) - Labs Labs: 03/07/17 09:18 03/07/17 06:24 PT 18.4 Seconds (9.9-11.8) H 03/07/17 06:24 INR 1.70 (0.93-1.08) H 03/07/17 06:24 APTT 28.5 Seconds (23.7-30.8) 03/07/17 06:24
[2017-03-07 09:32] LABS: BASO # 0.01 K/mm3 (0.0-2.0); BASO % 0.1 % (0.0-3.0); GRAN # 15.48 (1.4-6.5); GRAN % 93.7 % (50.0-68.0); HEMATOCRIT 40.3 % (36.0-48.0); LYMPH # 0.5 (1.2-3.4); MEAN CELL VOLUME 87.6 fl (80.0-105.0); MEAN CORPUSCULAR HEMOGLOBIN 26.7 pg (25.0-35.0); MEAN CORPUSCULAR HGB CONC 30.5 g/dl (31.0-37.0); MEAN PLATELET VOLUME 10.7 fl (7.0-11.0); MONO # 0.5 (0.1-0.6); MONO % 3.2 % (1.0-6.0); PLATELET COUNT 259 10^3/uL (120.0-450.0); RED CELL DISTRIBUTION WIDTH 17.3 % (11.5-14.5); WHITE BLOOD COUNT 16.5 10^3/ul (4.5-11.0)
[2017-03-07] MEDS: diltiaZEM 120 mg/24 Hours CD Cap PO SCH (09:39)
[2017-03-07] MEDS ORDERED: Digoxin 125 mcg (0.125 mg) Tab PO SCH (10:00)
--- NOTE | 2017-03-07 10:04 | CP.PCM.PN ---
Subjective - Date & Time of Evaluation Date of Evaluation: 03/07/17 Time of Evaluation: 09:40 - Subjective Subjective: Patient continues to be on high-flow oxygen, with some respiratory distress at rest. No fevers. Cough is a little better. Objective - Vital Signs/Intake and Output Vital Signs (last 24 hours): Temp Pulse Resp BP Pulse Ox 98.6 F 87 18 113/75 88 L 03/06/17 20:00 03/07/17 06:00 03/07/17 07:18 03/07/17 05:00 03/07/17 06:00 Intake and Output: 03/07/17 03/07/17 06:59 18:59 Intake Total 1240 Output Total 50 Balance 1190 - Medications Medications: Current Medications Albuterol/Ipratropium (Duoneb 3 Mg/0.5 Mg (3 Ml) Ud) 3 ml IH [id number] [facility] Last Admin: 03/07/17 07:02 Dose: 3 ml Albuterol/Ipratropium (Duoneb 3 Mg/0.5 Mg (3 Ml) Ud) 3 ml IH Q2H PRN PRN Reason: Shortness of Breath Doxycycline Hyclate (Doryx) 100 mg PO Q12 DANICA PRN Reason: Protocol Stop: 03/15/17 22:01 Last Admin: 03/06/17 21:19 Dose: 100 mg Heparin Sodium (Porcine) (Heparin) 5,000 units SC Q8 DANICA PRN Reason: Protocol Last Admin: 03/07/17 05:19 Dose: 5,000 units Levetiracetam (Keppra 500mg Ivpb) 500 mg in 100 mls @ 400 mls/hr IVPB Q12 [facility] Last Admin: 03/06/17 21:19 Dose: 400 mls/hr Cefepime HCl (Maxipime 1gm) 1 gm in 100 mls @ 100 mls/hr IVPB Q24H DANICA PRN Reason: Protocol Stop: 03/15/17 17:46 Last Admin: 03/06/17 18:43 Dose: 100 mls/hr Lorazepam (Ativan) 2 mg IVP Q6H PRN; Protocol PRN Reason: Anxiety Ondansetron HCl (Zofran Inj) 4 mg IVP Q4H PRN PRN Reason: Nausea/Vomiting Pantoprazole Sodium (Protonix Inj) 40 mg IVP DAILY [facility] - Labs Labs: 03/07/17 06:24 PT 18.4 Seconds (9.9-11.8) H 03/07/17 06:24 INR 1.70 (0.93-1.08) H 03/07/17 06:24 APTT 28.5 Seconds (23.7-30.8) 03/07/17 06:24 - Constitutional Appears: Other (in some respiratory distress at rest, on high-flow oxygen) - Head Exam Head Exam: NORMAL INSPECTION - Neck Exam Neck Exam: absent: Meningismus - Respiratory Exam Respiratory Exam: Decreased Breath Sounds - Cardiovascular Exam Cardiovascular Exam: +S1, +S2 - GI/Abdominal Exam GI & Abdominal Exam: Soft. absent: Tenderness Assessment and Plan - Assessment and Plan (Free Text) Plan: Assessment R/O healthcare-associated pneumonia in this patient with cough presenting with acute hypoxic respiratory failure history of sepsis due to right lower lobe healthcare-associated pneumonia stage3 IIIB non-small cell lung cancer S/P chemotherapy S/P port-a-cath placement COPD atrial fibrillation peripheral vascular disease S/P femoral stenting benign brain tumor S/P removal in 2013 seizure disorder pulmonary HTN CAD S/P PCI chronic CHF Plan continue Cefepime and Doxycycline day 2 - has been given a dose of IV Vancomycin as well follow up CT chest, PCT levels, blood and sputum cx will continue to monitor clinically
[2017-03-07] MEDS ORDERED: Sod Polystyrene Sulf 15 gm/60 ml Oral Susp PO ONE (11:10)
[2017-03-07 11:16] LABS: NEUTROPHIL 93 % (50.0-70.0)
[2017-03-07 11:17] LABS: ANISOCYTOSIS 2+; PLATELET ESTIMATE NORMAL (NORMAL); POIKILOCYTOSIS 1+
[2017-03-07 11:18] LABS: BURR CELLS 1+; LARGE PLATELETS PRESENT; PLATELET CLUMPS PRESENT; TEAR DROP CELLS SLIGHT
--- NOTE | 2017-03-07 13:07 | CON ---
DATE: 03/07/2017 CONSULT SERVICE: Cardiology. REASON FOR CONSULTATION: Cardiac evaluation, history of SVT, history of coronary artery disease, admitted with acute kidney injury, lethargic, possible tumor lysis syndrome, and history of chemotherapy 2 days ago. BRIEF CLINICAL HISTORY: A 61-year-old with past medical history significant for COPD, coronary artery disease, status post PTCA of RCA, history of pulmonary hypertension, history of lung CA inoperable, on chemo, recently chemo two days ago, after that the patient feels very weak and lethargic, whole body hurts, Dr. Gomez saw her and sent to the ER, found to be in acute kidney injury, potassium 5.5 and creatinine 3.2. Denies any chest pain, shortness of breath, or any palpitation. The patient use to come with paroxysmal atrial fibrillation, SVT, but at this time, the patient remain heart rate is stable. PAST MEDICAL HISTORY: Significant for coronary artery disease, status post PTCA with stent of right coronary artery on 07/15/2016 with a bare-metal stent, SVT, paroxysmal atrial fibrillation, severe mitral regurgitation, severe tricuspid regurgitation, inoperable lung cancer, on chemo, most recently chemo 2 days ago. PREVIOUS CARDIAC WORKUP: As follows, the patient had echocardiography on 07/11/2016 that showed ejection fraction of 65% to 70%, dilated right atrium, dilated right ventricle, severely dilated systolic function, right ventricle severely reduced, tricuspid regurgitation, and RV systolic pressure of 123. The patient has a history of severe pulmonary hypertension. Cardiac catheterization 07/15/2016 that revealed normal LV function, ejection fraction of 55%, left main free of any significant disease, bifurcating LAD and circumflex. LAD is without any significant disease. Circumflex at 40% to 50% stenosis, RCA 80% to 90% blockage, which was dealt with bare-metal stent because of underlying lung cancer. The patient was on chemotherapy dated 07/15/2016. The patient also right heart catheterization at that time that, that shows RA 10-12, RV 60/10, PA pressure 60/23, and mean PA 38. Pulmonary capillary wedge pressure 13. Cardiac output 3.83, later cardiac index 1.89. SOCIAL HISTORY: Used to smoke a pack. She said she stopped the smoking after cancer was diagnosed, stopped drinking since 2005. CURRENT MEDICATIONS: The patient is taking at home, methylprednisolone 2 tablets daily, Keppra, Cardizem 120, Revatio 20 mg daily, Daliresp, phenytoin, Singulair, Lasix, atorvastatin, atenolol, and amiodarone. REVIEW OF SYSTEMS: A 14-point review of systems is negative except as per HPI. No chest pain. PHYSICAL EXAMINATION: VITAL SIGNS: Temperature afebrile, heart rate 87, and blood pressure 113/75. HEENT: PERRLA intact. NECK: Supple. No carotid bruits or thyromegaly. CHEST: Clear to auscultation. HEART: S1 and S2 regular. ABDOMEN: Soft. EXTREMITIES: Clubbing and cyanosis negative. LABORATORY DATA: EKG not available in the chart, but telemetry shows normal sinus, no acute ST-T changes noted. Blood workup as follows, WBC 7, hemoglobin 13.1, hematocrit 42.0, and platelet count 264. Chemistry shows sodium 141, potassium 6, chloride 106, carbon dioxide 13, anion gap of 28, BUN 48, creatinine 4, AST 360, ALT 356, alkaline phosphatase 166, and bilirubin 1.7. Acute kidney injury, acute liver failure, possibly tumor lysis syndrome, and severe lactic acidosis 7.6. Potassium 6. IMPRESSION: A 61-year-old female with past medical history significant for pulmonary hypertension, ex-tobacco abuse, lung cancer inoperable, history of right coronary artery stenosis, status post percutaneous transluminal coronary angioplasty in 07/2016 with bare-metal stent, severe pulmonary hypertension, admitted with acute kidney injury, acute liver injury possibly secondary to tumor lysis syndrome, hyperkalemia, history of supraventricular tachycardia and paroxysmal atrial fibrillation. At this time, the patient is stable. RECOMMENDATIONS: Hold amiodarone, hold digoxin, we will add digoxin level because of acute liver injury, also we will hold amiodarone. We will get the digoxin level. Interim, continue Cardizem CD, and continue phenytoin. Overall, the patient's condition is critical and prognosis is guarded, also continue atenolol. We will follow with you. We will get amiodarone level as well. Thank you for providing me the opportunity in taking care of Aviva Feliciano. We will resume back when level is back of the liver function back to normal. For now, we will hold amiodarone as well. Serenity Maguire MD
[2017-03-07] MEDS ORDERED: Lidocaine 2% Inj (20ml) ONE (13:18)
[2017-03-07] MEDS ORDERED: Midazolam 2 MG/2 ML VIAL ONE (13:19)
[2017-03-07] MEDS ORDERED: NOREPINEPHRINE BIT/0.9 % NACL 4 MG/250 ML BAG IV ONE (16:17)
[2017-03-07] MEDS: NOREPINEPHRINE BIT/0.9 % NACL 4 MG/250 ML BAG IV PRN ×4 (16:20→23:31)
[2017-03-07] MEDS ORDERED: Sodium Bicarbonate (8.4%) 50 Meq Syringe IVP ONE ×2 (16:48→16:55)
[2017-03-07 16:52] LABS: ARTERIAL BLOOD GAS HCO3 5.1 mmol/L (21-28)
[2017-03-07 16:54] LABS: ARTERIAL BLOOD GAS PH 6.92 (7.35-7.45)
[2017-03-07] MEDS ORDERED: Propofol 10 mg/ml Inj (20 ML) ONE (16:57)
--- NOTE | 2017-03-07 16:57 | EEG ---
DATE: 03/07/2017 CONDITION OF THE RECORDING: Drowsy. DIAGNOSIS: Seizure. MEDICATIONS: Reviewed by nurse per reconciliation sheet. INTERPRETATION: This is a 16-channel [employer] recording. Background activity was composed of 6 to 7 cycles per second. There was a small amount of beta activity of 16 to 20 cycles per second seen in this recording. There was increased amount of theta activity of 5 to 7 cycles per second seen in this tracing. Drowsiness was characterized by mixed beta and theta activities. Sleep was characterized by vertex transient waves, sleep spindles, and bilateral slowing. Photic stimulation showed no change in the tracing. No paroxysmal activity is noted in this recording. CONCLUSION: This is abnormal EEG due to presence of mild diffuse slowing throughout the recording consistent with mild bilateral cerebral dysfunction. No evidence of any epileptiform activity. Please clinically correlate. Fausto Worthy MD
[2017-03-07] MEDS ORDERED: Sodium Bicarbonate (8.4%) 50 Meq Syringe ONE (17:02)
[2017-03-07] MEDS ORDERED: Dextrose 50% SYRINGE Inj (50 ml) ONE (17:09)
[2017-03-07] MEDS ORDERED: Meropenem 1g/NS 100mL IVPB 1 GM/100 ML PIGGYBACK IVPB STA (17:24)
[2017-03-07] MEDS ORDERED: Vancomycin 1gm in NS 250ml 1 GM/250 ML BAG IVPB STA (17:24)
[2017-03-07] MEDS ORDERED: Propofol 10 mg/ml Inj (20 ML) IVP ONE (17:32)
[2017-03-07 17:35] LABS: GRAN # 19.12 (1.4-6.5); GRAN % 94.8 % (50.0-68.0); HEMATOCRIT 36.2 % (36.0-48.0); LYMPH # 0.6 (1.2-3.4); MEAN CELL VOLUME 89.2 fl (80.0-105.0); MEAN CORPUSCULAR HEMOGLOBIN 26.6 pg (25.0-35.0); MEAN CORPUSCULAR HGB CONC 29.8 g/dl (31.0-37.0); MEAN PLATELET VOLUME 10.3 fl (7.0-11.0); MONO # 0.4 (0.1-0.6); MONO % 2.2 % (1.0-6.0); RED CELL DISTRIBUTION WIDTH 17.4 % (11.5-14.5); WHITE BLOOD COUNT 20.2 10^3/ul (4.5-11.0)
[2017-03-07] MEDS ORDERED: Dextrose 50% SYRINGE Inj (50 ml) IVP STA (17:43)
[2017-03-07] MEDS: Dexmedetomidine HCl 4mcg/ml 400 MCG/100 ML BOTTLE IV PRN ×2 (17:52→21:37)
[2017-03-07 17:53] LABS: ALB/GLOB RATIO 1.5 (1.1-1.8); BILIRUBIN,TOTAL 1.6 mg/dL (0.2-1.3); CALCIUM 7.5 mg/dL (8.4-10.5); TOTAL PROTEIN 4.8 g/dL (5.8-8.3)
[2017-03-07 17:54] LABS: POTASSIUM 5.5 mmol/L (3.6-5.0)
--- NOTE | 2017-03-07 18:01 | CP.CCUPN ---
CCU Subjective - Physician Review Events Since Last Encounter (Free Text): 03/07/17 17:53 61 y/o F admitted for confusion, delerium and wai. No seizures overnight but remains confused this morning. CCU Objective - Vital Signs / Intake & Output Intake and Output (Last 8hrs): Intake & Output 03/07/17 03/07/17 03/07/17 06:59 14:59 22:59 Intake Total 1240 Output Total 50 Balance 1190 Intake: IV 1000 Right Subclavian 1000 Oral 240 Output: Urine 50 Urethral ([place]ues[place]) 50 - Physical Exam Physical Exam Limitations: Positive for: Altered Mental Status Head: Positive for: Atraumatic Pupils: Positive for: PERRL, Sluggish Extroacular Muscles: Positive for: EOMI Mouth: Positive for: Moist Mucous Membranes, Dry Neck: Positive for: Normal Range of Motion Respiratory/Chest: Positive for: Good Air Exchange, Decreased Breath Sounds, Rhonchi, Tachypneic. Negative for: Clear to Auscultation, Respiratory Distress , Accessory Muscle Use, Wheezes, Retracting Cardiovascular: Positive for: Regular Rate and Rhythm. Negative for: Tachycardic Abdomen: Negative for: Tenderness, Distention, Rebound, Guarding Back: Positive for: Normal Inspection, Other (right sided tenderness, mid back) Upper Extremity: Positive for: Normal Inspection, Normal ROM Neurological: Positive for: Other (confused ) Skin: Positive for: Warm Psychiatric: Positive for: Alert, Oriented x 3 - Medications Active Medications: Active Medications Generic Name Dose Route Start Last Admin Trade Name Freq PRN Reason Stop Dose Admin Albuterol/Ipratropium 3 ml 03/06/17 20:00 03/07/17 13:09 Duoneb 3 Mg/0.5 Mg (3 Ml) Ud IH Not Given [id number] DANICA Albuterol/Ipratropium 3 ml 03/06/17 15:09 Duoneb 3 Mg/0.5 Mg (3 Ml) Ud IH Q2H PRN Shortness of Breath Atenolol 12.5 mg 03/07/17 10:00 03/07/17 09:40 Tenormin PO Not Given BID DANICA Digoxin 0.125 mg 03/07/17 10:00 03/07/17 09:43 Lanoxin PO 0.125 mg MWF DANICA Administration Diltiazem HCl 120 mg 03/07/17 10:00 03/07/17 09:39 Cardizem Cd PO Not Given DAILY DANICA Doxycycline Hyclate 100 mg 03/06/17 22:00 03/07/17 09:17 Doryx PO 03/15/17 22:01 100 mg Q12 DANICA Administration Protocol Heparin Sodium (Porcine) 5,000 units 03/06/17 22:00 03/07/17 15:00 Heparin SC Not Given Q8 DANICA Protocol Levetiracetam 500 mg in 100 mls @ 400 mls/hr 03/06/17 22:00 03/07/17 09:18 Keppra 500mg Ivpb IVPB 400 mls/hr Q12 DANICA Administration Cefepime HCl 1 gm in 100 mls @ 100 mls/hr 03/06/17 17:45 03/06/17 18:43 Maxipime 1gm IVPB 03/15/17 17:46 100 mls/hr Q24H DANICA Administration Protocol NOREPINEPHRINE BIT/0.9 % NACL 4 mg in 250 mls @ 15 mls/hr 03/07/17 16:25 Levophed 4 Mg/ 250 Ml Ns Premixed IV .[id number] PRN TITRATE PER MD ORDER Protocol 4 MCG/MIN Dexmedetomidine HCl 400 mcg in 100 mls @ 4.468 mls/hr 03/07/17 17:23 17:52 Precedex 4 Mcg/Ml (100 Ml) IV 0.2 mcg/kg/hr .[id number] PRN 4.468 mls/hr Anxiety Administration Protocol 0.2 MCG/KG/HR Meropenem 1g/NS 100mL IVPB 1 gm in 100 mls @ 100 mls/hr 03/07/17 17:24 Meropenem 1g/Ns 100ml Ivpb IVPB 03/07/17 18:23 STAT STA Protocol Vancomycin HCl 1 gm in 250 mls @ 167 mls/hr 03/07/17 17:24 Vancomycin 1gm IVPB 03/07/17 18:53 STAT STA Protocol Lorazepam 2 mg 03/06/17 19:16 Ativan IVP Q6H PRN Anxiety Protocol Ondansetron HCl 4 mg 03/06/17 16:03 Zofran Inj IVP Q4H PRN Nausea/Vomiting Pantoprazole Sodium 40 mg 03/07/17 10:00 03/07/17 09:17 Protonix Inj IVP 40 mg DAILY DANICA Administration Phenytoin Sodium 100 mg 03/07/17 10:00 03/07/17 10:23 Dilantin PO 100 mg DAILY DANICA Administration Tramadol HCl 50 mg 03/07/17 09:48 Ultram PO TID PRN Pain, severe (8-10) - Patient Studies Lab Studies: Microbiology Studies 03/06/17 20:33 Gram Stain - Final Sputum 03/06/17 11:50 Urine Culture - Final Urine No Growth (<1,000 CFU/ML) Lab Studies 03/07/17 03/07/17 03/07/17 Range/Units 17:25 17:05 16:43 WBC 20.2 H D (4.5-11.0) 10^3/ul RBC 4.06 (3.5-6.1) 10^6/uL Hgb 10.8 L (12.0-16.0) g/dL Hct 36.2 (36.0-48.0) % MCV 89.2 (80.0-105.0) fl MCH 26.6 (25.0-35.0) pg MCHC 29.8 L (31.0-37.0) g/dl RDW 17.4 H (11.5-14.5) % Plt Count 217 (120.0-450.0) 10^3/uL MPV 10.3 (7.0-11.0) fl Gran % 94.8 H (50.0-68.0) % Lymph % (Auto) 3.0 L (22.0-35.0) % [place] % (Auto) 2.2 (1.0-6.0) % Eos % (Auto) 0.0 L (1.5-5.0) % Baso % (Auto) 0.0 (0.0-3.0) % Gran # 19.12 H (1.4-6.5) Lymph # 0.6 L (1.2-3.4) [place] # 0.4 (0.1-0.6) Eos # 0.0 (0.0-0.7) Baso # 0.00 (0.0-2.0) K/mm3 Neutrophils % (Manual) (50.0-70.0) % Lymphocytes % (Manual) (22.0-35.0) % Monocytes % (Manual) (1.0-6.0) % Platelet Evaluation (NORMAL) Plt Clumps, EDTA Large Platelets Poikilocytosis (manual Anisocytosis (manual) Tear Drop Cells Rosie Cells PT (9.9-11.8) Seconds INR (0.93-1.08) APTT (23.7-30.8) Seconds pCO2 25 L (35-45) mm/Hg pO2 78.0 L (80-100) mm/Hg HCO3 5.1 L* (21-28) mmol/L ABG pH 6.92 L* (7.35-7.45) ABG Total CO2 5.9 L (22-28) mmol.L ABG O2 Saturation 92.2 L (95-98) % ABG O2 Content (15-23) ML/dl ABG Base Excess -26.5 L (-2.0-3.0) mmol/L ABG Hemoglobin (11.7-17.4) g/dL ABG Carboxyhemoglobin (0.5-1.5) % POC ABG HHb (Measured) (0-5) % ABG Methemoglobin (0.0-3.0) % ABG O2 Capacity (16-24) mL/dl ABG Potassium 5.6 H (3.6-5.2) mmol/L VBG pH (7.32-7.43) VBG pCO2 (40-60) VBG HCO3 (21-28) mmol/l VBG Total CO2 (22-28) mmol.L VBG O2 Sat (Calc) (40-65) % VBG Base Excess (0.0-2.0) mmol/L VBG Potassium (3.6-5.2) mmol/L Hgb O2 Saturation (95.0-98.0) % Sodium 136.0 (132-148) mmol/L Chloride 104.0 (98-107) mmol/L Glucose 41 L (65-105) mg/dl Lactate 13.4 H* (0.7-2.1) mmol/L FiO2 50 % Potassium (3.6-5.0) mmol/L Carbon Dioxide (21-33) mmol/L Anion Gap (10-20) BUN (7-21) mg/dL Creatinine (0.7-1.2) mg/dL Est GFR ( Amer) Est GFR (Non-Af Amer) POC Glucose (mg/dL) < 20 L* (65-110) mg/dL Random Glucose (70-110) mg/dL Lactic Acid (0.7-2.1) mmol/L Calcium (8.4-10.5) mg/dL Phosphorus (2.5-4.5) mg/dL Magnesium (1.7-2.2) mg/dL Total Bilirubin (0.2-1.3) mg/dL AST (14-36) U/L ALT (7-56) U/L Alkaline Phosphatase (38-126) U/L Lactate Dehydrogenase (333-699) U/L Total Creatine Kinase (35-230) U/L Troponin I ng/mL Total Protein (5.8-8.3) g/dL Albumin (3.0-4.8) g/dL Globulin gm/dL Albumin/Globulin Ratio (1.1-1.8) Procalcitonin (0.19-0.49) NG/ML Arterial Blood Potassium 5.6 H (3.6-5.2) mmol/L Venous Blood Potassium (3.6-5.2) mmol/L Ur Random Creatinine mg/dL U Random Total Protein mg/L Digoxin (0.8-2.0) ng/mL Phenytoin (10-20) ug/mL 03/07/17 03/07/17 03/07/17 Range/Units 09:18 06:24 06:24 WBC 16.5 H D (4.5-11.0) 10^3/ul RBC 4.60 (3.5-6.1) 10^6/uL Hgb 12.3 (12.0-16.0) g/dL Hct 40.3 (36.0-48.0) % MCV 87.6 (80.0-105.0) fl MCH 26.7 (25.0-35.0) pg MCHC 30.5 L (31.0-37.0) g/dl RDW 17.3 H (11.5-14.5) % Plt Count 259 (120.0-450.0) 10^3/uL MPV 10.7 (7.0-11.0) fl Gran % 93.7 H (50.0-68.0) % Lymph % (Auto) 3.0 L (22.0-35.0) % [place] % (Auto) 3.2 (1.0-6.0) % Eos % (Auto) 0.0 L (1.5-5.0) % Baso % (Auto) 0.1 (0.0-3.0) % Gran # 15.48 H (1.4-6.5) Lymph # 0.5 L (1.2-3.4) [place] # 0.5 (0.1-0.6) Eos # 0.0 (0.0-0.7) Baso # 0.01 (0.0-2.0) K/mm3 Neutrophils % (Manual) 93 H (50.0-70.0) % Lymphocytes % (Manual) 4 L (22.0-35.0) % Monocytes % (Manual) 3 (1.0-6.0) % Platelet Evaluation Normal (NORMAL) Plt Clumps, EDTA Present Large Platelets Present Poikilocytosis (manual 1+ Anisocytosis (manual) 2+ Tear Drop Cells Slight Rosie Cells 1+ PT (9.9-11.8) Seconds INR (0.93-1.08) APTT (23.7-30.8) Seconds pCO2 (35-45) mm/Hg pO2 (80-100) mm/Hg HCO3 (21-28) mmol/L ABG pH (7.35-7.45) ABG Total CO2 (22-28) mmol.L ABG O2 Saturation (95-98) % ABG O2 Content (15-23) ML/dl ABG Base Excess (-2.0-3.0) mmol/L ABG Hemoglobin (11.7-17.4) g/dL ABG Carboxyhemoglobin (0.5-1.5) % POC ABG HHb (Measured) (0-5) % ABG Methemoglobin (0.0-3.0) % ABG O2 Capacity (16-24) mL/dl ABG Potassium (3.6-5.2) mmol/L VBG pH (7.32-7.43) VBG pCO2 (40-60) VBG HCO3 (21-28) mmol/l VBG Total CO2 (22-28) mmol.L VBG O2 Sat (Calc) (40-65) % VBG Base Excess (0.0-2.0) mmol/L VBG Potassium (3.6-5.2) mmol/L Hgb O2 Saturation (95.0-98.0) % Sodium (132-148) mmol/L Chloride (98-107) mmol/L Glucose (65-105) mg/dl Lactate (0.7-2.1) mmol/L FiO2 % Potassium (3.6-5.0) mmol/L Carbon Dioxide (21-33) mmol/L Anion Gap (10-20) BUN (7-21) mg/dL Creatinine (0.7-1.2) mg/dL Est GFR ( Amer) Est GFR (Non-Af Amer) POC Glucose (mg/dL) (65-110) mg/dL Random Glucose (70-110) mg/dL Lactic Acid (0.7-2.1) mmol/L Calcium (8.4-10.5) mg/dL Phosphorus (2.5-4.5) mg/dL Magnesium (1.7-2.2) mg/dL Total Bilirubin (0.2-1.3) mg/dL AST (14-36) U/L ALT (7-56) U/L Alkaline Phosphatase (38-126) U/L Lactate Dehydrogenase (333-699) U/L Total Creatine Kinase (35-230) U/L Troponin I ng/mL Total Protein (5.8-8.3) g/dL Albumin (3.0-4.8) g/dL Globulin gm/dL Albumin/Globulin Ratio (1.1-1.8) Procalcitonin (0.19-0.49) NG/ML Arterial Blood Potassium (3.6-5.2) mmol/L Venous Blood Potassium (3.6-5.2) mmol/L Ur Random Creatinine mg/dL U Random Total Protein mg/L Digoxin < 0.4 L (0.8-2.0) ng/mL Phenytoin < 3 L (10-20) ug/mL 03/07/17 03/07/17 03/07/17 Range/Units 06:24 06:24 06:24 WBC (4.5-11.0) 10^3/ul RBC (3.5-6.1) 10^6/uL Hgb (12.0-16.0) g/dL Hct (36.0-48.0) % MCV (80.0-105.0) fl MCH (25.0-35.0) pg MCHC (31.0-37.0) g/dl RDW (11.5-14.5) % Plt Count (120.0-450.0) 10^3/uL MPV (7.0-11.0) fl Gran % (50.0-68.0) % Lymph % (Auto) (22.0-35.0) % [place] % (Auto) (1.0-6.0) % Eos % (Auto) (1.5-5.0) % Baso % (Auto) (0.0-3.0) % Gran # (1.4-6.5) Lymph # (1.2-3.4) [place] # (0.1-0.6) Eos # (0.0-0.7) Baso # (0.0-2.0) K/mm3 Neutrophils % (Manual) (50.0-70.0) % Lymphocytes % (Manual) (22.0-35.0) % Monocytes % (Manual) (1.0-6.0) % Platelet Evaluation (NORMAL) Plt Clumps, EDTA Large Platelets Poikilocytosis (manual Anisocytosis (manual) Tear Drop Cells [place] Cells PT 18.4 H (9.9-11.8) Seconds INR 1.70 H (0.93-1.08) APTT 28.5 (23.7-30.8) Seconds pCO2 (35-45) mm/Hg pO2 (80-100) mm/Hg HCO3 (21-28) mmol/L ABG pH (7.35-7.45) ABG Total CO2 (22-28) mmol.L ABG O2 Saturation (95-98) % ABG O2 Content (15-23) ML/dl ABG Base Excess (-2.0-3.0) mmol/L ABG Hemoglobin (11.7-17.4) g/dL ABG Carboxyhemoglobin (0.5-1.5) % POC ABG HHb (Measured) (0-5) % ABG Methemoglobin (0.0-3.0) % ABG O2 Capacity (16-24) mL/dl ABG Potassium (3.6-5.2) mmol/L VBG pH (7.32-7.43) VBG pCO2 (40-60) VBG HCO3 (21-28) mmol/l VBG Total CO2 (22-28) mmol.L VBG O2 Sat (Calc) (40-65) % VBG Base Excess (0.0-2.0) mmol/L VBG Potassium (3.6-5.2) mmol/L Hgb O2 Saturation (95.0-98.0) % Sodium 141 (132-148) mmol/L Chloride 106 (98-107) mmol/L Glucose (65-105) mg/dl Lactate (0.7-2.1) mmol/L FiO2 % Potassium 6.0 H* D (3.6-5.0) mmol/L Carbon Dioxide 13 L (21-33) mmol/L Anion Gap 28 H (10-20) BUN 48 H (7-21) mg/dL Creatinine 4.0 H (0.7-1.2) mg/dL Est GFR ( Amer) 14 Est GFR (Non-Af Amer) 11 POC Glucose (mg/dL) (65-110) mg/dL Random Glucose 71 (70-110) mg/dL Lactic Acid 7.6 H* (0.7-2.1) mmol/L Calcium 8.2 L (8.4-10.5) mg/dL Phosphorus 10.0 H (2.5-4.5) mg/dL Magnesium 1.9 (1.7-2.2) mg/dL Total Bilirubin 1.7 H (0.2-1.3) mg/dL AST 360 H D (14-36) U/L ALT 356 H (7-56) U/L Alkaline Phosphatase 166 H D (38-126) U/L Lactate Dehydrogenase (333-699) U/L Total Creatine Kinase (35-230) U/L Troponin I ng/mL Total Protein 5.7 L (5.8-8.3) g/dL Albumin 3.6 (3.0-4.8) g/dL Globulin 2.1 gm/dL Albumin/Globulin Ratio 1.7 (1.1-1.8) Procalcitonin (0.19-0.49) NG/ML Arterial Blood Potassium (3.6-5.2) mmol/L Venous Blood Potassium (3.6-5.2) mmol/L Ur Random Creatinine mg/dL U Random Total Protein mg/L Digoxin (0.8-2.0) ng/mL Phenytoin (10-20) ug/mL 03/07/17 03/06/17 03/06/17 Range/Units 05:01 22:30 22:30 WBC (4.5-11.0) 10^3/ul RBC (3.5-6.1) 10^6/uL Hgb (12.0-16.0) g/dL Hct (36.0-48.0) % MCV (80.0-105.0) fl MCH (25.0-35.0) pg MCHC (31.0-37.0) g/dl RDW (11.5-14.5) % Plt Count (120.0-450.0) 10^3/uL MPV (7.0-11.0) fl Gran % (50.0-68.0) % Lymph % (Auto) (22.0-35.0) % [place] % (Auto) (1.0-6.0) % Eos % (Auto) (1.5-5.0) % Baso % (Auto) (0.0-3.0) % Gran # (1.4-6.5) Lymph # (1.2-3.4) [place] # (0.1-0.6) Eos # (0.0-0.7) Baso # (0.0-2.0) K/mm3 Neutrophils % (Manual) (50.0-70.0) % Lymphocytes % (Manual) (22.0-35.0) % Monocytes % (Manual) (1.0-6.0) % Platelet Evaluation (NORMAL) Plt Clumps, EDTA Large Platelets Poikilocytosis (manual Anisocytosis (manual) Tear Drop Cells Rosie Cells PT (9.9-11.8) Seconds INR (0.93-1.08) APTT (23.7-30.8) Seconds pCO2 (35-45) mm/Hg pO2 28 L (80-100) mm/Hg HCO3 (21-28) mmol/L ABG pH (7.35-7.45) ABG Total CO2 (22-28) mmol.L ABG O2 Saturation (95-98) % ABG O2 Content (15-23) ML/dl ABG Base Excess (-2.0-3.0) mmol/L ABG Hemoglobin (11.7-17.4) g/dL ABG Carboxyhemoglobin (0.5-1.5) % POC ABG HHb (Measured) (0-5) % ABG Methemoglobin (0.0-3.0) % ABG O2 Capacity (16-24) mL/dl ABG Potassium (3.6-5.2) mmol/L VBG pH 7.16 L* (7.32-7.43) VBG pCO2 48.0 (40-60) VBG HCO3 17.1 L (21-28) mmol/l VBG Total CO2 18.6 L (22-28) mmol.L VBG O2 Sat (Calc) 38.8 L (40-65) % VBG Base Excess -11.5 L (0.0-2.0) mmol/L VBG Potassium 5.7 H (3.6-5.2) mmol/L Hgb O2 Saturation (95.0-98.0) % Sodium 137.0 (132-148) mmol/L Chloride 107.0 (98-107) mmol/L Glucose 87 (65-105) mg/dl Lactate 4.3 H* (0.7-2.1) mmol/L FiO2 21.0 % Potassium (3.6-5.0) mmol/L Carbon Dioxide (21-33) mmol/L Anion Gap (10-20) BUN (7-21) mg/dL Creatinine (0.7-1.2) mg/dL Est GFR ( Amer) Est GFR (Non-Af Amer) POC Glucose (mg/dL) (65-110) mg/dL Random Glucose (70-110) mg/dL Lactic Acid (0.7-2.1) mmol/L Calcium (8.4-10.5) mg/dL Phosphorus (2.5-4.5) mg/dL Magnesium (1.7-2.2) mg/dL Total Bilirubin (0.2-1.3) mg/dL AST (14-36) U/L ALT (7-56) U/L Alkaline Phosphatase (38-126) U/L Lactate Dehydrogenase (333-699) U/L Total Creatine Kinase (35-230) U/L Troponin I ng/mL Total Protein (5.8-8.3) g/dL Albumin (3.0-4.8) g/dL Globulin gm/dL Albumin/Globulin Ratio (1.1-1.8) Procalcitonin (0.19-0.49) NG/ML Arterial Blood Potassium (3.6-5.2) mmol/L Venous Blood Potassium 5.7 H (3.6-5.2) mmol/L Ur Random Creatinine 139 mg/dL U Random Total Protein 370 mg/L Digoxin < 0.4 L (0.8-2.0) ng/mL Phenytoin (10-20) ug/mL 03/06/17 03/06/17 03/06/17 Range/Units 22:30 22:30 22:00 WBC (4.5-11.0) 10^3/ul RBC (3.5-6.1) 10^6/uL Hgb (12.0-16.0) g/dL Hct (36.0-48.0) % MCV (80.0-105.0) fl MCH (25.0-35.0) pg MCHC (31.0-37.0) g/dl RDW (11.5-14.5) % Plt Count (120.0-450.0) 10^3/uL MPV (7.0-11.0) fl Gran % (50.0-68.0) % Lymph % (Auto) (22.0-35.0) % [place] % (Auto) (1.0-6.0) % Eos % (Auto) (1.5-5.0) % Baso % (Auto) (0.0-3.0) % Gran # (1.4-6.5) Lymph # (1.2-3.4) [place] # (0.1-0.6) Eos # (0.0-0.7) Baso # (0.0-2.0) K/mm3 Neutrophils % (Manual) (50.0-70.0) % Lymphocytes % (Manual) (22.0-35.0) % Monocytes % (Manual) (1.0-6.0) % Platelet Evaluation (NORMAL) Plt Clumps, EDTA Large Platelets Poikilocytosis (manual Anisocytosis (manual) Tear Drop Cells [place] Cells PT (9.9-11.8) Seconds INR (0.93-1.08) APTT (23.7-30.8) Seconds pCO2 32 L (35-45) mm/Hg pO2 62.0 L (80-100) mm/Hg HCO3 13.7 L (21-28) mmol/L ABG pH 7.24 L (7.35-7.45) ABG Total CO2 14.7 L (22-28) mmol.L ABG O2 Saturation 90.5 L (95-98) % ABG O2 Content 15.3 (15-23) ML/dl ABG Base Excess -12.5 L (-2.0-3.0) mmol/L ABG Hemoglobin 12.3 (11.7-17.4) g/dL ABG Carboxyhemoglobin 2.2 H (0.5-1.5) % POC ABG HHb (Measured) 9.2 H (0-5) % ABG Methemoglobin 0.6 (0.0-3.0) % ABG O2 Capacity 16.9 (16-24) mL/dl ABG Potassium (3.6-5.2) mmol/L VBG pH (7.32-7.43) VBG pCO2 (40-60) VBG HCO3 (21-28) mmol/l VBG Total CO2 (22-28) mmol.L VBG O2 Sat (Calc) (40-65) % VBG Base Excess (0.0-2.0) mmol/L VBG Potassium (3.6-5.2) mmol/L Hgb O2 Saturation 88.1 L (95.0-98.0) % Sodium (132-148) mmol/L Chloride (98-107) mmol/L Glucose (65-105) mg/dl Lactate (0.7-2.1) mmol/L FiO2 32.0 % Potassium (3.6-5.0) mmol/L Carbon Dioxide (21-33) mmol/L Anion Gap (10-20) BUN (7-21) mg/dL Creatinine (0.7-1.2) mg/dL Est GFR ( Amer) Est GFR (Non-Af Amer) POC Glucose (mg/dL) (65-110) mg/dL Random Glucose (70-110) mg/dL Lactic Acid (0.7-2.1) mmol/L Calcium (8.4-10.5) mg/dL Phosphorus (2.5-4.5) mg/dL Magnesium (1.7-2.2) mg/dL Total Bilirubin (0.2-1.3) mg/dL AST (14-36) U/L ALT (7-56) U/L Alkaline Phosphatase (38-126) U/L Lactate Dehydrogenase 2073 H (333-699) U/L Total Creatine Kinase 55 (35-230) U/L Troponin I 0.06 D ng/mL Total Protein (5.8-8.3) g/dL Albumin (3.0-4.8) g/dL Globulin gm/dL Albumin/Globulin Ratio (1.1-1.8) Procalcitonin 0.28 (0.19-0.49) NG/ML Arterial Blood Potassium (3.6-5.2) mmol/L Venous Blood Potassium (3.6-5.2) mmol/L Ur Random Creatinine mg/dL U Random Total Protein mg/L Digoxin (0.8-2.0) ng/mL Phenytoin (10-20) ug/mL Laboratory Results - last 24 hr 03/06/17 03/06/17 03/06/17 22:00 22:30 22:30 WBC RBC Hgb Hct MCV MCH MCHC RDW Plt Count MPV Gran % Lymph % (Auto) [place] % (Auto) Eos % (Auto) Baso % (Auto) Gran # Lymph # [place] # Eos # Baso # Neutrophils % (Manual) Lymphocytes % (Manual) Monocytes % (Manual) Platelet Evaluation Plt Clumps, EDTA Large Platelets Poikilocytosis (manual Anisocytosis (manual) Tear Drop Cells Rosie Cells PT INR APTT pCO2 32 L pO2 62.0 L HCO3 13.7 L ABG pH 7.24 L ABG Total CO2 14.7 L ABG O2 Saturation 90.5 L ABG O2 Content 15.3 ABG Base Excess -12.5 L ABG Hemoglobin 12.3 ABG Carboxyhemoglobin 2.2 H POC ABG HHb (Measured) 9.2 H ABG Methemoglobin 0.6 ABG O2 Capacity 16.9 ABG Potassium VBG pH VBG pCO2 VBG HCO3 VBG Total CO2 VBG O2 Sat (Calc) VBG Base Excess VBG Potassium Hgb O2 Saturation 88.1 L Sodium Chloride Glucose Lactate FiO2 32.0 Potassium Carbon Dioxide Anion Gap BUN Creatinine Est GFR ( Amer) Est GFR (Non-Af Amer) POC Glucose (mg/dL) Random Glucose Lactic Acid Calcium Phosphorus Magnesium Total Bilirubin AST ALT Alkaline Phosphatase Lactate Dehydrogenase 2073 H Total Creatine Kinase 55 Troponin I 0.06 D Total Protein Albumin Globulin Albumin/Globulin Ratio Procalcitonin 0.28 Arterial Blood Potassium Venous Blood Potassium Ur Random Creatinine U Random Total Protein Digoxin Phenytoin 03/06/17 03/06/17 03/07/17 22:30 22:30 05:01 WBC RBC Hgb Hct MCV MCH MCHC RDW Plt Count MPV Gran % Lymph % (Auto) [place] % (Auto) Eos % (Auto) Baso % (Auto) Gran # Lymph # [place] # Eos # Baso # Neutrophils % (Manual) Lymphocytes % (Manual) Monocytes % (Manual) Platelet Evaluation Plt Clumps, EDTA Large Platelets Poikilocytosis (manual Anisocytosis (manual) Tear Drop Cells [place] Cells PT INR APTT pCO2 pO2 28 L HCO3 ABG pH ABG Total CO2 ABG O2 Saturation ABG O2 Content ABG Base Excess ABG Hemoglobin ABG Carboxyhemoglobin POC ABG HHb (Measured) ABG Methemoglobin ABG O2 Capacity ABG Potassium VBG pH 7.16 L* VBG pCO2 48.0 VBG HCO3 17.1 L VBG Total CO2 18.6 L VBG O2 Sat (Calc) 38.8 L VBG Base Excess -11.5 L VBG Potassium 5.7 H Hgb O2 Saturation Sodium 137.0 Chloride 107.0 Glucose 87 Lactate 4.3 H* FiO2 21.0 Potassium Carbon Dioxide Anion Gap BUN Creatinine Est GFR ( Amer) Est GFR (Non-Af Amer) POC Glucose (mg/dL) Random Glucose Lactic Acid Calcium Phosphorus Magnesium Total Bilirubin AST ALT Alkaline Phosphatase Lactate Dehydrogenase Total Creatine Kinase Troponin I Total Protein Albumin Globulin Albumin/Globulin Ratio Procalcitonin Arterial Blood Potassium Venous Blood Potassium 5.7 H Ur Random Creatinine 139 U Random Total Protein 370 Digoxin < 0.4 L Phenytoin 03/07/17 03/07/17 03/07/17 06:24 06:24 06:24 WBC RBC Hgb Hct MCV MCH MCHC RDW Plt Count MPV Gran % Lymph % (Auto) [place] % (Auto) Eos % (Auto) Baso % (Auto) Gran # Lymph # [place] # Eos # Baso # Neutrophils % (Manual) Lymphocytes % (Manual) Monocytes % (Manual) Platelet Evaluation Plt Clumps, EDTA Large Platelets Poikilocytosis (manual Anisocytosis (manual) Tear Drop Cells [place] Cells PT 18.4 H INR 1.70 H APTT 28.5 pCO2 pO2 HCO3 ABG pH ABG Total CO2 ABG O2 Saturation ABG O2 Content ABG Base Excess ABG Hemoglobin ABG Carboxyhemoglobin POC ABG HHb (Measured) ABG Methemoglobin ABG O2 Capacity ABG Potassium VBG pH VBG pCO2 VBG HCO3 VBG Total CO2 VBG O2 Sat (Calc) VBG Base Excess VBG Potassium Hgb O2 Saturation Sodium 141 Chloride 106 Glucose Lactate FiO2 Potassium 6.0 H* D Carbon Dioxide 13 L Anion Gap 28 H BUN 48 H Creatinine 4.0 H Est GFR ( Amer) 14 Est GFR (Non-Af Amer) 11 POC Glucose (mg/dL) Random Glucose 71 Lactic Acid 7.6 H* Calcium 8.2 L Phosphorus 10.0 H Magnesium 1.9 Total Bilirubin 1.7 H AST 360 H D ALT 356 H Alkaline Phosphatase 166 H D Lactate Dehydrogenase Total Creatine Kinase Troponin I Total Protein 5.7 L Albumin 3.6 Globulin 2.1 Albumin/Globulin Ratio 1.7 Procalcitonin Arterial Blood Potassium Venous Blood Potassium Ur Random Creatinine U Random Total Protein Digoxin Phenytoin 03/07/17 03/07/17 03/07/17 06:24 06:24 09:18 WBC 16.5 H D RBC 4.60 Hgb 12.3 Hct 40.3 MCV 87.6 MCH 26.7 MCHC 30.5 L RDW 17.3 H Plt Count 259 MPV 10.7 Gran % 93.7 H Lymph % (Auto) 3.0 L [place] % (Auto) 3.2 Eos % (Auto) 0.0 L Baso % (Auto) 0.1 Gran # 15.48 H Lymph # 0.5 L [place] # 0.5 Eos # 0.0 Baso # 0.01 Neutrophils % (Manual) 93 H Lymphocytes % (Manual) 4 L Monocytes % (Manual) 3 Platelet Evaluation Normal Plt Clumps, EDTA Present Large Platelets Present Poikilocytosis (manual 1+ Anisocytosis (manual) 2+ Tear Drop Cells Slight Rosie Cells 1+ PT INR APTT pCO2 pO2 HCO3 ABG pH ABG Total CO2 ABG O2 Saturation ABG O2 Content ABG Base Excess ABG Hemoglobin ABG Carboxyhemoglobin POC ABG HHb (Measured) ABG Methemoglobin ABG O2 Capacity ABG Potassium VBG pH VBG pCO2 VBG HCO3 VBG Total CO2 VBG O2 Sat (Calc) VBG Base Excess VBG Potassium Hgb O2 Saturation Sodium Chloride Glucose Lactate FiO2 Potassium Carbon Dioxide Anion Gap BUN Creatinine Est GFR ( Amer) Est GFR (Non-Af Amer) POC Glucose (mg/dL) Random Glucose Lactic Acid Calcium Phosphorus Magnesium Total Bilirubin AST ALT Alkaline Phosphatase Lactate Dehydrogenase Total Creatine Kinase Troponin I Total Protein Albumin Globulin Albumin/Globulin Ratio Procalcitonin Arterial Blood Potassium Venous Blood Potassium Ur Random Creatinine U Random Total Protein Digoxin < 0.4 L Phenytoin < 3 L 03/07/17 03/07/17 03/07/17 16:43 17:05 17:25 WBC 20.2 H D RBC 4.06 Hgb 10.8 L Hct 36.2 MCV 89.2 MCH 26.6 MCHC 29.8 L RDW 17.4 H Plt Count 217 MPV 10.3 Gran % 94.8 H Lymph % (Auto) 3.0 L [place] % (Auto) 2.2 Eos % (Auto) 0.0 L Baso % (Auto) 0.0 Gran # 19.12 H Lymph # 0.6 L [place] # 0.4 Eos # 0.0 Baso # 0.00 Neutrophils % (Manual) Lymphocytes % (Manual) Monocytes % (Manual) Platelet Evaluation Plt Clumps, EDTA Large Platelets Poikilocytosis (manual Anisocytosis (manual) Tear Drop Cells [place] Cells PT INR APTT pCO2 25 L pO2 78.0 L HCO3 5.1 L* ABG pH 6.92 L* ABG Total CO2 5.9 L ABG O2 Saturation 92.2 L ABG O2 Content ABG Base Excess -26.5 L ABG Hemoglobin ABG Carboxyhemoglobin POC ABG HHb (Measured) ABG Methemoglobin ABG O2 Capacity ABG Potassium 5.6 H VBG pH VBG pCO2 VBG HCO3 VBG Total CO2 VBG O2 Sat (Calc) VBG Base Excess VBG Potassium Hgb O2 Saturation Sodium 136.0 Chloride 104.0 Glucose 41 L Lactate 13.4 H* FiO2 50 Potassium Carbon Dioxide Anion Gap BUN Creatinine Est GFR ( Amer) Est GFR (Non-Af Amer) POC Glucose (mg/dL) < 20 L* Random Glucose Lactic Acid Calcium Phosphorus Magnesium Total Bilirubin AST ALT Alkaline Phosphatase Lactate Dehydrogenase Total Creatine Kinase Troponin I Total Protein Albumin Globulin Albumin/Globulin Ratio Procalcitonin Arterial Blood Potassium 5.6 H Venous Blood Potassium Ur Random Creatinine U Random Total Protein Digoxin Phenytoin Fingerstick Blood Sugar Results: 177 Review of Systems - Review of Systems Systems not reviewed;Unavailable: Altered Mental Status Critical Care Progress Note - Ventilator Checklist Daily Sedation Vacation: Yes Daily Assessment of Readiness to Wean: Yes Daily Spontaneous Breathing Trial: Yes PUD Prophalyxis: Yes DVT Prophylaxis: Yes Oral Care with Chlorhexidine Gluconate {CHG}: Yes Assessment/Plan - Assessment and Plan (Free Text) Assessment: 61 y/o F w/ AG metabolic acidosis Change in mental status post IR catheter attempt. Wai worsening with poor urine output and elevated creatnine . HD catheter placed in the G femoral vein for acute HD. Repeat abg shows worsening AG metabolic acidosis , 2 amps Bicarbonate given. Hypogylcemia corrected. Elevated lactate and elevated WBC. Broaden abx w/ meropenum and vancomycin. Repeat cultures . STAT ct abdomen and pelvis to r/o abscess. Nephrology aware and awaiting stat HD. Shock of uncertain cause. On levophed to help HD fluid removal for also RV failure . Intubated due to worsening mental status and AG metabolic acidosis . ARDS net protocol. ABG needed. cc time 65 min + procedure.
--- NOTE | 2017-03-07 18:18 | CP.PCM.PN ---
Subjective - Date & Time of Evaluation Date of Evaluation: 03/07/17 Time of Evaluation: 18:15 - Subjective Subjective: 61 yo F w/ small cell lung CA on chemo (w/ pemetrexed), COPD on 3L home O2, severe pulm htn, CAD and PAD, admitted after seizure with hypoxemic respiratory failure and acute renal failure; Patient found to be more tachypneic today; intubated early this evening after developing increasing lactic acidosis; Objective - Vital Signs/Intake and Output Vital Signs (last 24 hours): Temp Pulse Resp BP Pulse Ox 97.4 F L 93 H 18 108/37 L 87 L 03/07/17 11:45 03/07/17 11:01 03/07/17 11:01 03/07/17 11:01 03/07/17 11:01 Intake and Output: 03/07/17 03/07/17 06:59 18:59 Intake Total 1240 Output Total 50 Balance 1190 - Medications Medications: Current Medications Albuterol/Ipratropium (Duoneb 3 Mg/0.5 Mg (3 Ml) Ud) 3 ml IH [id number] [facility] Last Admin: 03/07/17 13:09 Dose: Not Given Albuterol/Ipratropium (Duoneb 3 Mg/0.5 Mg (3 Ml) Ud) 3 ml IH Q2H PRN PRN Reason: Shortness of Breath Atenolol (Tenormin) 12.5 mg PO BID [facility] Last Admin: 03/07/17 09:40 Dose: Not Given Digoxin (Lanoxin) 0.125 mg PO MWF [facility] Last Admin: 03/07/17 09:43 Dose: 0.125 mg Diltiazem HCl (Cardizem Cd) 120 mg PO DAILY [facility] Last Admin: 03/07/17 09:39 Dose: Not Given Doxycycline Hyclate (Doryx) 100 mg PO Q12 [facility] PRN Reason: Protocol Stop: 03/15/17 22:01 Last Admin: 03/07/17 09:17 Dose: 100 mg Heparin Sodium (Porcine) (Heparin) 5,000 units SC Q8 [facility] PRN Reason: Protocol Last Admin: 03/07/17 15:00 Dose: Not Given Levetiracetam (Keppra 500mg Ivpb) 500 mg in 100 mls @ 400 mls/hr IVPB Q12 [facility] Last Admin: 03/07/17 09:18 Dose: 400 mls/hr Cefepime HCl (Maxipime 1gm) 1 gm in 100 mls @ 100 mls/hr IVPB Q24H [facility] PRN Reason: Protocol Stop: 03/15/17 17:46 Last Admin: 03/06/17 18:43 Dose: 100 mls/hr NOREPINEPHRINE BIT/0.9 % NACL (Levophed 4 Mg/ 250 Ml Ns Premixed) 4 mg in 250 mls @ 15 mls/hr IV .[id number] PRN; Protocol; 4 MCG/MIN PRN Reason: TITRATE PER MD ORDER Dexmedetomidine HCl (Precedex 4 Mcg/Ml (100 Ml)) 400 mcg in 100 mls @ 4.468 mls /hr IV .[id number] PRN; Protocol; 0.2 MCG/KG/HR PRN Reason: Anxiety Last Admin: 03/07/17 17:52 Dose: 0.2 mcg/kg/hr, 4.468 mls/hr Meropenem 1g/NS 100mL IVPB (Meropenem 1g/Ns 100ml Ivpb) 1 gm in 100 mls @ 100 mls/hr IVPB STAT STA PRN Reason: Protocol Stop: 03/07/17 18:23 Vancomycin HCl (Vancomycin 1gm) 1 gm in 250 mls @ 167 mls/hr IVPB STAT STA PRN Reason: Protocol Stop: 03/07/17 18:53 Lorazepam (Ativan) 2 mg IVP Q6H PRN; Protocol PRN Reason: Anxiety Ondansetron HCl (Zofran Inj) 4 mg IVP Q4H PRN PRN Reason: Nausea/Vomiting Pantoprazole Sodium (Protonix Inj) 40 mg IVP DAILY [facility] Last Admin: 03/07/17 09:17 Dose: 40 mg Phenytoin Sodium (Dilantin) 100 mg PO DAILY [facility] Last Admin: 03/07/17 10:23 Dose: 100 mg Tramadol HCl (Ultram) 50 mg PO TID PRN PRN Reason: Pain, severe (8-10) - Labs Labs: 03/07/17 17:25 03/07/17 06:24 PT 18.4 Seconds (9.9-11.8) H 03/07/17 06:24 INR 1.70 (0.93-1.08) H 03/07/17 06:24 APTT 28.5 Seconds (23.7-30.8) 03/07/17 06:24 - Constitutional Appears: In Acute Distress - Head Exam Head Exam: NORMAL INSPECTION - Eye Exam Eye Exam: Normal appearance - ENT Exam ENT Exam: Mucous Membranes Moist - Respiratory Exam Respiratory Exam: Clear to Ausculation Bilateral, Respiratory Distress - Cardiovascular Exam Cardiovascular Exam: Tachycardia, +S1, +S2 - GI/Abdominal Exam GI & Abdominal Exam: Soft. absent: Distended - Exam Exam: absent: Bladder Distension - Extremities Exam Additional comments: mild b/l lower leg edema; - Neurological Exam Neurological Exam: Alert, Awake - Psychiatric Exam Psychiatric exam: Anxious - Skin Additional comments: Cool distal ext with mildly cyanotic fingertips; Assessment and Plan (1) Acute renal failure (ARF) Assessment & Plan: ATN in the setting of recent chemo with pemetrexed; oligo-anuric renal failure with hyperkalemia and likely worsening RV volume overload (which may be secondarily causing cardiorenal syndrome); also with severe metabolic acidosis; -initiating HD today urgently for the above condition on 2k/2.5Ca/40HCO3 dialysate with 1L net UF goal over 3 hours; will repeat again tomorrow Status: Acute (2) Shock Assessment & Plan: Appears to be of cardiogenic etiology with likely RV pump failure in the setting of known severe pulmonary htn; started on levophed to stabilize BP, may benefit from inotropic agent as well; will try pre-load reduction with UF on HD ; however, agree with empiric abx for possible septic component; should dose abx for CrCl < 10; being started on meropenem and vanco, should re-dose after HD ; Status: Acute (3) Lactic acidosis Assessment & Plan: Severe lactic acidosis; critical care team getting CT abd/pelvis to r/o any intra-abdominal abcess/ischemia; will dialyze on high bicarb bath in an attempt to offset acidosis; Status: Acute (4) Pulmonary HTN Assessment & Plan: Severe, in the setting of COPD, with ensuing RV volume overload; will benefit from UF on HD; Status: Acute (5) Hyperkalemia Assessment & Plan: In the setting of oliguric JUSTINA; no evidence of rhabdo; HD as above; Status: Acute - Assessment and Plan (Free Text) Assessment: Critical care time spent assessing patient and discussing with critical care team >45 minutes;
--- NOTE | 2017-03-07 19:09 | PCM.PROC ---
Procedures Attestation:: I certify that I have explained the specified Operation(s) or Procedure(s), risks, benefits and reasonable alternatives to the Patient and/or other person responsible. The opportunity was given to ask questions and all questions answered - Arterial Line Right Axillary Aseptic technique was employed throughout the procedure: Hand Hygiene done prior to procedure, Full sterile barriers (mask, hair cover, sterile gown, sterile gloves), Full body sterile drape, Chloraprep Antiseptic: 30 second prep for IJ or SC sites Time Out Performed: Yes Pt. placed on Pulse Ox Monitor: Yes Ultrasound Used for Placement: Yes Technique Used: Guide Wire Technique Secured by: Securement device (Suture and Tegaderm) Patient Tolerated Procedure: well Immediate Complications: none
[2017-03-07] MEDS: Vasopressin 20 UNITS in Dextrose 5% In Water 100 ML IV SCH (19:52)
--- NOTE | 2017-03-07 20:02 | VASCULAR ---
PROCEDURE: Attempted tunneled dialysis catheter HISTORY: Lung carcinoma. Acute renal failure with hyperkalemia. Needs emergent dialysis. PHYSICIAN(S): Clement Feliciano MD. TECHNIQUE: The relative risks and indications of the procedure were explained at length to the patient's family and consent obtained. The patient was placed on the arteriography table and sonography of neck performed. This revealed a patent and large right internal jugular vein with the long-term port catheter present. No thrombus was seen. The neck was prepped and draped usual sterile fashion. Issues with obtaining consistent blood pressures and O2 sats were encountered. The patient was responsive and talking. A small amount of IV fentanyl was given. Under ultrasound guidance the right internal jugular vein was punctured just over the clavicle with a micropuncture set. 0.018 guidewire was advanced. At this point the patient became agitated and beligerent. She contaminated the sterile field and removed the IJ wire. The procedure was abruptly terminated and hemostasis obtained at the puncture site. The patient was transferred quickly back to the ICU in the same condition. The family and referring doctor's were informed of the clinical situation. FINDINGS: . IMPRESSION: Attempted tunnel dialysis catheter placement
--- NOTE | 2017-03-07 20:03 | RAD ---
HISTORY: intubated COMPARISON: 03/06/2017 FINDINGS: There is stable position of endotracheal tube, nasogastric tube and right IJV line. LUNGS: The lungs are well inflated. There is mild pulmonary venous congestion. PLEURA: No significant pleural effusion identified, no pneumothorax apparent. CARDIOVASCULAR: There is mild cardiomegaly. OSSEOUS STRUCTURES: No significant abnormalities. VISUALIZED UPPER ABDOMEN: Normal. OTHER FINDINGS: None. IMPRESSION: Mild cardiomegaly and pulmonary venous congestion. No acute findings.
[2017-03-07 20:18] LABS: BASO # 0.01 K/mm3 (0.0-2.0); GRAN # 23.05 (1.4-6.5); GRAN % 95.5 % (50.0-68.0); HEMATOCRIT 38.5 % (36.0-48.0); LYMPH # 0.7 (1.2-3.4); LYMPH % 3.1 % (22.0-35.0); MEAN CELL VOLUME 89.5 fl (80.0-105.0); MEAN CORPUSCULAR HEMOGLOBIN 26.7 pg (25.0-35.0); MEAN CORPUSCULAR HGB CONC 29.9 g/dl (31.0-37.0); MEAN PLATELET VOLUME 9.9 fl (7.0-11.0); MONO # 0.3 (0.1-0.6); MONO % 1.4 % (1.0-6.0); RED CELL DISTRIBUTION WIDTH 17.4 % (11.5-14.5); WHITE BLOOD COUNT 24.1 10^3/ul (4.5-11.0)
[2017-03-07 20:26] LABS: ALB/GLOB RATIO 1.6 (1.1-1.8); ALKALINE PHOSPHATASE 146 U/L (38-126); ALT/SGPT 771 U/L (7-56); BILIRUBIN,TOTAL 1.8 mg/dL (0.2-1.3); BLOOD UREA NITROGEN 54 mg/dL (7-21); CALCIUM 7.6 mg/dL (8.4-10.5); CARBON DIOXIDE 10 mmol/L (21-33); CHLORIDE 105 mmol/L (98-107); GFR AFRICAN-AMERICAN 11; GLUCOSE,RANDOM 112 mg/dL (70-110); MAGNESIUM 1.8 mg/dL (1.7-2.2); PHOSPHOROUS 12.6 mg/dL (2.5-4.5); POTASSIUM 5.5 mmol/L (3.6-5.0); SODIUM 142 mmol/L (132-148); TOTAL PROTEIN 5.5 g/dL (5.8-8.3)
[2017-03-07 20:32] LABS: AST/SGOT 1304 U/L (14-36)
[2017-03-07 21:01] LABS: VENOUS BLOOD GAS BASE EXCESS -7.5 mmol/L (0.0-2.0)
[2017-03-07 21:07] LABS: VENOUS BLOOD PH 7.15 (7.32-7.43)
[2017-03-07 22:54] LABS: ARTERIAL BLOOD GAS HCO3 12.7 mmol/L (21-28); ARTERIAL BLOOD GAS O2 CONTENT 15.5 ML/dl (15-23); ARTERIAL BLOOD GAS PH 7.22 (7.35-7.45); ARTERIAL BLOOD HGB O2 SAT 93.7 % (95.0-98.0); CARBOXYHEMOGLOBIN 2.2 % (0.5-1.5); HHB 2.9 % (0-5); METHEMOGLOBIN 1.2 % (0.0-3.0)
[2017-03-08] MEDS ORDERED: Dextrose 50% SYRINGE Inj (50 ml) IVP ONE ×2 (01:15→10:25)
[2017-03-08] MEDS: NOREPINEPHRINE BIT/0.9 % NACL 4 MG/250 ML BAG IV PRN ×2 (01:23→02:09)
[2017-03-08] MEDS: Dexmedetomidine HCl 4mcg/ml 400 MCG/100 ML BOTTLE IV PRN ×6 (02:09→21:00)
[2017-03-08] MEDS ORDERED: NOREPINEPHRINE BIT/0.9 % NACL 4 MG/250 ML BAG IV PRN (02:16)
[2017-03-08] MEDS: Albuterol-Ipratrop 3 mg / 0.5 (3 ml) UD IH SCH ×5 (02:35→21:15)
[2017-03-08] MEDS: Vasopressin 20 UNITS in Dextrose 5% In Water 100 ML IV SCH ×3 (05:48→23:05)
[2017-03-08 06:05] LABS: BASO # 0.02 K/mm3 (0.0-2.0); BASO % 0.1 % (0.0-3.0); GRAN # 22.82 (1.4-6.5); GRAN % 95.7 % (50.0-68.0); HEMATOCRIT 37.2 % (36.0-48.0); LYMPH # 0.8 (1.2-3.4); LYMPH % 3.4 % (22.0-35.0); MEAN CELL VOLUME 87.3 fl (80.0-105.0); MEAN CORPUSCULAR HEMOGLOBIN 27.2 pg (25.0-35.0); MEAN CORPUSCULAR HGB CONC 31.2 g/dl (31.0-37.0); MEAN PLATELET VOLUME 10.4 fl (7.0-11.0); MONO # 0.2 (0.1-0.6); MONO % 0.8 % (1.0-6.0); RED CELL DISTRIBUTION WIDTH 17.5 % (11.5-14.5); WHITE BLOOD COUNT 23.9 10^3/ul (4.5-11.0)
[2017-03-08 06:12] LABS: ALB/GLOB RATIO 1.6 (1.1-1.8); BILIRUBIN,TOTAL 2.4 mg/dL (0.2-1.3); CALCIUM 7.4 mg/dL (8.4-10.5); MAGNESIUM 1.7 mg/dL (1.7-2.2); PHOSPHOROUS 9.8 mg/dL (2.5-4.5); POTASSIUM 5.4 mmol/L (3.6-5.0); TOTAL PROTEIN 5.1 g/dL (5.8-8.3)
[2017-03-08 06:46] LABS: ARTERIAL BLOOD GAS HCO3 8.9 mmol/L (21-28); ARTERIAL BLOOD GAS PH 7.14 (7.35-7.45)
--- NOTE | 2017-03-08 07:29 | CT ---
PROCEDURE: CT Abdomen and Pelvis without intravenous contrast HISTORY: r/o abscess COMPARISON: 03/06/2017 renal ultrasound 08/28/2014, 01/09/[address] scans abdomen and pelvis TECHNIQUE: Unenhanced study. Neither oral nor intravenous contrast administered. Sensitivity and specificity for acute inflammatory processes limited by the absence of oral and intravenous contrast. Radiation dose: Total exam DLP = 1203.81 mGy-cm. This CT exam was performed using one or more of the following dose reduction techniques: Automated exposure control, adjustment of the mA and/or kV according to patient size, and/or use of iterative reconstruction technique. FINDINGS: LOWER THORAX: Horta subsegmental infiltrates left lower lobe. Segmental LIVER: Unremarkable. No gross lesion or ductal dilatation. GALLBLADDER AND BILE DUCTS: Status post cholecystectomy. No abnormality is seen in the gallbladder fossa. PANCREAS: Unremarkable. No gross lesion or ductal dilatation. SPLEEN: Unremarkable. ADRENALS: Unremarkable. No mass. KIDNEYS AND URETERS: Unremarkable. No hydronephrosis. No solid mass. Confirmation of right renal cysts identified on recent ultrasound VASCULATURE: Unremarkable. No aortic aneurysm. BOWEL: Diverticulosis without an acute inflammatory component or other associated pathologic process. APPENDIX: No abnormalities to suggest acute appendicitis. No right lower quadrant inflammatory processes identified. PERITONEUM: Unremarkable. No free fluid. No free air. LYMPH NODES: Unremarkable. No enlarged lymph nodes. BLADDER: Quesada catheter in satisfactory position in the urinary bladder which is decompressed. REPRODUCTIVE: Unremarkable. BONES: No acute fracture. OTHER FINDINGS: Nasogastric tube in satisfactory position in the stomach. IMPRESSION: No acute findings related to/accounting for the clinical presentation. Additional benign and/or incidental findings described above.
[2017-03-08] MEDS ORDERED: Cefepime 1gm in NS 100ml 1 GM/100 ML BAG IVPB SCH (07:45)
--- NOTE | 2017-03-08 08:03 | CON ---
ONCOLOGY CONSULTATION DATE: 03/07/2017 LOCATION: The patient is in CCU, bed 5. HISTORY OF PRESENT ILLNESS: This is a 61-year-old female with documented stage IIIB non-small cell carcinoma of the lung treated with chemoradiation following which she had follow up PET CT scan, which showed persistent, but a finite uptake in the mediastinum suggestive of residual disease and was placed on maintenance therapy with Alimta-based chemotherapy and has had treatments interrupted several times because of intercurrent admissions to the hospital, finally because that of congestive heart failure, and atrial fibrillation. The most recent treatment after a hiatus of about two months was last week with the dose of Alimta 500 mg given to her. Subsequent to the treatments, the patient was seen in the office at least on 3 separate days where blood withdrawn, the patient was given IV fluids cautiously and IV steroids, was noted to have, between Friday and deteriorating issues with shortness of breath and lack of urine production. On morning, was advised to go to the Emergency Room, in the view of the concern that the patient could have an acute situation going on metabolically. The patient was admitted via the Emergency Room. The patient in the ER had seizure and she was noted to be in metabolic failure secondary to acute kidney injury. Etiology of the acute kidney injury is unclear, it could be multifactorial. The patient has in this background history, history of significant congestive heart failure, history of paroxysmal atrial fibrillation, on amiodarone, history of pulmonary hypertension, and the patient is on medications for the same as well. She also has progressive COPD for which more recently should be placed on prednisone orally to alleviate some of the difficulties associated with the breathing. The patient's potassium in the ER was 5.5 and creatinine 3.2. She denies any chest pain, shortness of breath, but she was having considerable amount of wheezing just prior to admission to the ICU. The patient has had intermittent episodes of SVT prior to this, but during this admission predominantly it appeared to be acute kidney injury. Overnight the patient with the seizure that she had, had no further seizures. She was seen by Neurology and placed on IV Keppra and Dilantin as well. The patient has a history of coronary artery disease for which she had a right coronary artery PTCA, then stent placement done as well. The patient has severe mitral regurgitation and severe tricuspid regurgitation. REVIEW OF SYSTEMS: The patient is mentally compromised at this point in time even though she is able to badly recognize me, complete review of systems not feasible. The patient had an attempted placement of interventional catheter for hemodialysis as the potassium is up and she is having worsening lactic acidosis, it was not feasible. The patient is back in the unit and she is having currently placement of arterial catheter in the axillary artery for monitoring pressures and at the same time being able to get pressures of the heart as well as more importantly blood gases to monitor her clinical course. The patient is going to have a catheter placed in the groin with possible hemodialysis tonight. PHYSICAL EXAMINATION: GENERAL: The patient is resting in bed. She is awake. VITAL SIGNS: Reviewed and pressures to be around 99 systolic. LUNGS: With bilateral wheezes. HEART: The patient has tachycardia noted. Heart rate is more than 110. ABDOMEN: Protuberant. Mildly distended. Liver and spleen are not palpable. There is no rebound, rigidity, or guarding noted. EXTREMITIES: There is no significant cyanosis, clubbing, or edema. The patient has definitely cool extremities and definitely the tip of the fingers appear to be more cyanotic than usual on both hands. NEUROLOGICAL: Even though, she is able to respond to my talking to her, her neurologic status at this time is compromised because of the metabolic situation and possibly evolving hypoxemia as well. The patient is on high-flow oxygen at this time. The patient is being assessed for possible intubation. ASSESSMENT NOTES AND PLAN: The patient has progressively worsening acute kidney injury with lactic acidosis supervening on this, suggestive of possible involving infection as well. The patient is going to be hemodialyzed after the catheter is placed in by the station operator. She has been started on broad-spectrum antibiotics as well. I had a lengthy discussion with the patient's family including a brother and all their children. Prognostically, even though, her prognosis is guarded. From the medical point of view, still going to be aggressive as the last PET/CT had shown, which was done three weeks ago, no evidence of cancer at this point in time for which reason we should be as aggressive as is feasible under the given circumstances. Family is cautiously optimistic and we are going to try our best to see if some of these things can be reverted especially the acute kidney injury based on what the outcome from the dialysis should be over the next 24 to 48 hours. I told the family to give us at least the next 48 to 72 hours to prognosticate the patient and tell us how she is going to do in the immediate future, then we can make long-term plans. Time spent with the patient's family and reviewing all the x-rays and the results with them more than 90 minutes. I have already spoken to the corporate communications specialist, Dr. Mendoza and I have also spoken to Dr. Singh regarding my impressions for this patient's management. At this point in time, there is no evidence of any evolving DIC and continue monitoring the patient from a hematologic prospective as well. Michelle Gomez MD
--- NOTE | 2017-03-08 08:38 | PN ---
TIGHTENING MACHINE OPERATOR NOTE DATE: 03/08/2017 SUBJECTIVE: The patient is sedated on the ventilator with FiO2 of 50%. At this time, she continues to require Levophed and vasopressin for blood pressure support. The patient is on Precedex for sedation and vitals with the medications are stable at this time. PHYSICAL EXAMINATION: VITAL SIGNS: Temperature is 98.7, pulse is 94, respirations are 20, and blood pressure is 107/61. SKIN: Warm and dry. HEENT: Head is atraumatic and normocephalic. Eyes are reactive to light. Ears, nose and throat seemed to be within normal limits. NECK: Supple. No JVD. No thyroid enlargement. No lymph nodes. HEART: Has a regular rate and rhythm. Normal S1, S2. LUNGS: Reveal rare rhonchi at the bases. ABDOMEN: Soft. Decreased bowel sounds. GENITALIA: Deferred. RECTAL: Deferred. MUSCULOSKELETAL: No joint deformities. EXTREMITIES: Reveal trace lower extremity edema. NEUROLOGICAL: The patient is sedated on the ventilator. LABORATORY DATA: Her white count is 23.9, hemoglobin is 11.6, hematocrit 37.2 with platelets 161,000. Arterial blood gas reveals pH of 7.4, pCO2 of 26, and pO2 101. Sodium is 140, potassium 5.4, chloride 103, CO2 of 12 with a BUN of 44, creatinine of 4.2, and a glucose of 117. The patient's chest x-ray is pending. IMPRESSION: This patient has respiratory failure requiring respiratory support. She has a severe metabolic acidosis with septic shock. The patient has history of stage IIIB lung cancer and is noted to have acute renal failure with hyperkalemia and severe metabolic acidosis requiring hemodialysis. She is ventilator dependent requiring 50% FiO2 and chest x-ray does note pneumonia. The patient has hypoglycemia requiring D10 and has a history of COPD, cor pulmonale as well as pulmonary hypertension and anemia. As far as our plan, we will continue with ventilator support and titrate FiO2 down as tolerated. The patient will continue on the vasopressin, Levophed, and Precedex. We will follow her labs and correct as needed. She is being followed by renal and getting hemodialysis and we will continue with antibiotics. The patient will continue as stated above with D10 and blood glucoses will be followed closely. She is on bronchodilators via nebulizer and we will continue to treat aggressively along with the consultants and the primary care doctor. Marcos Tiwari MD
--- NOTE | 2017-03-08 09:24 | CT ---
PROCEDURE: CT Chest without contrast HISTORY: r/o hcap COMPARISON: 08/15/2016 TECHNIQUE: Contiguous axial images were obtained through the chest without intravenous contrast enhancement. Sagittal and coronal reconstructions were performed. Maximum intensity projection (MIP) reconstructed images in the following planes: Axial projection only Radiation dose (DLP): 857.56 mGy-cm. This CT exam was performed using one or more of the following dose reduction techniques: Automated exposure control, adjustment of the mA and/or kV according to patient size, and/or use of iterative reconstruction technique. FINDINGS: LUNGS: Subsegmental infiltrates posterior segment left upper lobe and basilar segment left lower lobe. Dependent atelectasis/infiltrate right lower lobe. These appear to be superimposed upon more chronic findings basilar distribution on the prior study. Right upper lobe pulmonary nodule 3 mm. Peripheral pleural-based right lower lobe infiltrate 4 mm. These are stable compared to the prior study. MEDIASTINUM: Unremarkable thoracic aorta. No aneurysm. Cardiomegaly. No evidence of acute, significant cardiovascular disease. Dilated main pulmonary artery 3.3 cm consistent with pulmonary arterial hypertension. No lymphadenopathy. PLEURA: No pleural fluid. No pneumothorax. BONES: No fracture. No destructive lesion. UPPER ABDOMEN: Grossly unremarkable. OTHER FINDINGS: Satisfactory position ventilatory, vascular and nasogastric apparatus IMPRESSION: Increase in left lower lobe infiltrate. Stable pulmonary nodules. Satisfactory position of support apparatus. Concordant results (preliminary interpretation) provided by [facility] [employer]. Procedure Completed: 19:02 Preliminary ([facility]) Report: Dictated and Authenticated: 19:40 Final Interpretation: 09:16. March 08, 2017.
[2017-03-08] MEDS: levETIRAcetam 500mg IVPB 500 MG/100 ML BAG IVPB SCH ×2 (09:31→22:08)
[2017-03-08] MEDS: diltiaZEM 120 mg/24 Hours CD Cap PO SCH (09:32)
--- NOTE | 2017-03-08 10:29 | RAD ---
HISTORY: Intubated, follow-up. Technique: Single view portable semi erect @ 09:45 COMPARISON: Multiple serial examinations preceding the most recent study: March 07, 2017. 17:44 FINDINGS: LUNGS: No significant interval change compared to the prior examination(s). PLEURA: No significant pleural effusion identified, no pneumothorax apparent. CARDIOVASCULAR: No radiographic findings to suggest acute or significant cardiovascular disease. OSSEOUS STRUCTURES: No significant abnormalities. VISUALIZED UPPER ABDOMEN: Normal. OTHER FINDINGS: Stable, satisfactory position ventilatory, vascular and nasogastric apparatus. IMPRESSION: No significant interval change compared to the prior examination(s).
[2017-03-08] MEDS ORDERED: DOBUTamine 500mg/250ml D5W 500 MG/250 ML BAG IV PRN (10:54)
[2017-03-08] MEDS ORDERED: Dextrose 50% SYRINGE Inj (50 ml) ONE (10:57)
[2017-03-08 11:09] LABS: INR 2.23 (0.93-1.08); PARTIAL THROMBOPLASTIN TIME 35.5 Seconds (23.7-30.8)
--- NOTE | 2017-03-08 12:03 | CP.PCM.PN ---
Subjective - Date & Time of Evaluation Date of Evaluation: 03/08/17 Time of Evaluation: 10:40 - Subjective Subjective: Noted events overnight - patient needed to be intubated and is also on vasopressor support. No fevers overnight. Objective - Vital Signs/Intake and Output Vital Signs (last 24 hours): Temp Pulse Resp BP Pulse Ox 98.7 F 94 H 24 107/61 69 L 03/08/17 00:00 03/08/17 07:00 03/07/17 18:20 03/08/17 07:00 03/08/17 04:02 Intake and Output: 03/08/17 03/08/17 06:59 18:59 Intake Total 1546 Balance 1546 - Medications Medications: Current Medications Albuterol/Ipratropium (Duoneb 3 Mg/0.5 Mg (3 Ml) Ud) 3 ml IH [id number] [facility] Last Admin: 03/08/17 02:35 Dose: 3 ml Albuterol/Ipratropium (Duoneb 3 Mg/0.5 Mg (3 Ml) Ud) 3 ml IH Q2H PRN PRN Reason: Shortness of Breath Atenolol (Tenormin) 12.5 mg PO BID [facility] Last Admin: 03/07/17 18:26 Dose: Not Given Digoxin (Lanoxin) 0.125 mg PO MWF [facility] Last Admin: 03/07/17 09:43 Dose: 0.125 mg Diltiazem HCl (Cardizem Cd) 120 mg PO DAILY [facility] Last Admin: 03/07/17 09:39 Dose: Not Given Doxycycline Hyclate (Doryx) 100 mg PO Q12 [facility] PRN Reason: Protocol Stop: 03/15/17 22:01 Last Admin: 03/07/17 23:29 Dose: 100 mg Heparin Sodium (Porcine) (Heparin) 5,000 units SC Q8 [facility] PRN Reason: Protocol Last Admin: 03/08/17 05:47 Dose: 5,000 units Levetiracetam (Keppra 500mg Ivpb) 500 mg in 100 mls @ 400 mls/hr IVPB Q12 [facility] Last Admin: 03/07/17 23:29 Dose: 400 mls/hr NOREPINEPHRINE BIT/0.9 % NACL (Levophed 4 Mg/ 250 Ml Ns Premixed) 4 mg in 250 mls @ 15 mls/hr IV .[id number] PRN; Protocol; 4 MCG/MIN PRN Reason: TITRATE PER MD ORDER Last Titration: 03/08/17 04:05 Dose: Infused Dexmedetomidine HCl (Precedex 4 Mcg/Ml (100 Ml)) 400 mcg in 100 mls @ 4.468 mls /hr IV .[id number] PRN; Protocol; 0.2 MCG/KG/HR PRN Reason: Anxiety Last Admin: 03/08/17 06:29 Dose: 1 mcg/kg/hr, 22.34 mls/hr Vasopressin 20 units/ Dextrose 101 mls @ 9.09 mls/hr IV .[id number] DANICA; 0.03 U/MIN PRN Reason: Protocol Last Admin: 03/08/17 05:48 Dose: 9.09 mls/hr Dextrose (Dextrose 10% In Water) 500 mls @ 60 mls/hr IV .Q8H20M DANICA Last Admin: 03/08/17 04:04 Dose: 60 mls/hr Norepinephrine Bitartrate 8 mg (/ Sodium Chloride) 258 mls @ 77.4 mls/hr IV .Q3H20M DANICA; 40 MCG/MIN PRN Reason: Protocol Last Admin: 03/08/17 04:04 Dose: 40 mcg/min, 77.4 mls/hr Lorazepam (Ativan) 2 mg IVP Q6H PRN; Protocol PRN Reason: Anxiety Ondansetron HCl (Zofran Inj) 4 mg IVP Q4H PRN PRN Reason: Nausea/Vomiting Pantoprazole Sodium (Protonix Inj) 40 mg IVP DAILY [facility] Last Admin: 03/07/17 09:17 Dose: 40 mg Phenytoin Sodium (Dilantin) 100 mg PO DAILY [facility] Last Admin: 03/07/17 10:23 Dose: 100 mg Tramadol HCl (Ultram) 50 mg PO TID PRN PRN Reason: Pain, severe (8-10) - Labs Labs: 03/08/17 05:45 03/08/17 05:45 PT 18.4 Seconds (9.9-11.8) H 03/07/17 06:24 INR 1.70 (0.93-1.08) H 03/07/17 06:24 APTT 28.5 Seconds (23.7-30.8) 03/07/17 06:24 - Constitutional Appears: Other (intubated, sedated, on vasopressors) - Head Exam Head Exam: NORMAL INSPECTION - ENT Exam Additional comments: ET tube in place - Respiratory Exam Respiratory Exam: Decreased Breath Sounds - Cardiovascular Exam Cardiovascular Exam: +S1, +S2 - GI/Abdominal Exam GI & Abdominal Exam: Soft. absent: Tenderness Assessment and Plan - Assessment and Plan (Free Text) Plan: Assessment R/O healthcare-associated pneumonia in this patient with cough presenting with acute hypoxic respiratory failure requiring ventilator support history of sepsis due to right lower lobe healthcare-associated pneumonia stage3 IIIB non-small cell lung cancer S/P chemotherapy S/P port-a-cath placement COPD atrial fibrillation peripheral vascular disease S/P femoral stenting benign brain tumor S/P removal in 2013 seizure disorder pulmonary HTN CAD S/P PCI chronic CHF Plan on Cefepime and Doxycycline day 3 - has been given a dose of IV Vancomycin as well and will change Cefepime to Merrem follow up CT chest - CT scan of the abdomen and pelvis is showing some infiltrates on the left lower lobe; PCT is only 0.28; blood is negative and sputum cx showing some bacteria will continue to monitor clinically discussed with Dr. Singh, Dr. Cervantes and Dr. Kenney
[2017-03-08] MEDS: DOBUTamine 500mg/250ml D5W 500 MG/250 ML BAG IV PRN (13:00)
--- NOTE | 2017-03-08 13:55 | PN ---
NEUROLOGY FOLLOWUP CHIEF COMPLAINT: Follow up for seizure. SUBJECTIVE: The patient noted, needed to be intubated and be on support overnight, is on pressors and some underlying sepsis. No further seizure-like activity overnight. She is on Keppra currently as well as Dilantin. PAST MEDICAL HISTORY: History of CAD, status post stent; atrial fibrillation; COPD, on 3 L; cardiomyopathy; severe pulmonary hypertension; seizures; history of benign epidermoid brain tumor, status post resection; history of small cell lung cancer, on chemo. SOCIAL HISTORY: No illicit drug use, smoking, or EtOH abuse at this time. ALLERGIES: ALLERGIC TO SYED. MEDICATIONS: Reviewed by nurse reconciliation sheet. PHYSICAL EXAMINATION: VITAL SIGNS: Afebrile, pulse rate of 92, blood pressure 93/54, is intubated. HEENT: Atraumatic and normocephalic. PERRLA. Extraocular muscles intact. NECK: Supple. No JVD. No adenopathy noted. LUNGS: Decreased breath sounds bilaterally. HEART: S1 and S2. Normal rate and rhythm. No murmurs, rubs, or gallops. ABDOMEN: Soft, nontender, and nondistended. Bowel sounds present. EXTREMITIES: No clubbing, no cyanosis. Peripheral pulses 2+ felt bilaterally. NEUROLOGIC: Currently, the patient is intubated on sedation, but cranial nerves II through XII intact. Speech was hypophonic yesterday. Motor exam: Spontaneously moves all extremities. Sensory exam: Withdraws to localized to noxious stimulus. DTRs are 1+ throughout. Coordination and gait deferred for now. LABORATORY DATA: WBC is 23.9, hemoglobin is 11.6, hematocrit of 37.2, platelet count of 161. Sodium is 140, potassium 5.4, chloride of 103, BUN of 44, creatinine of 4.2, and random glucose of 134. ASSESSMENT AND PLAN: This is a 61-year-old -Portuguese woman with history of coronary artery disease, status post stent; atrial fibrillation; chronic obstructive pulmonary disease, on 3 L; cardiomyopathy; severe pulmonary hypertension; seizure; benign epidermoid brain tumor, status post resection; small cell carcinoma, on chemo, who was admitted for altered mental status, seizure-like activity and kidney failure, had metabolic derangements. She also was missing her seizure medication due to being nauseous from chemotherapy over the past few days. Her EEG showed no epileptiform activity, just mild bilateral cerebral dysfunction. She is currently on Keppra and I have recommended to be on Dilantin as well. At this time, she was intubated overnight and is on pressors because had hypotension. She has some underlying sepsis, infectious disease is on board. At this time, we recommend: 1. Avoid tramadol since taking causes low seizure threshold. 2. Continue with Keppra 500 mg IV q. 12 as well as Dilantin 100 IV q. 12 as well. 3. Ativan p.r.n. for seizures. 4. Continue to monitor her electrolytes and correct accordingly. 5. Keep the blood pressures above systolic 120 to prevent cerebral hypoperfusion which can cause breakthrough seizures. 6. Continue with oncology management. Thank you for this followup. Fausto Worthy MD
--- NOTE | 2017-03-08 14:05 | CP.PCM.PN ---
Subjective - Date & Time of Evaluation Date of Evaluation: 03/08/17 Time of Evaluation: 10:00 - Subjective Subjective: 61 yo F w/ stage IIIB small cell lung CA, admitted with acute renal failure, severe metabolic acidosis and shock; Patient didn't tolerate HD well last night, became hypotensive, HD session cut short; otherwise has had to be kept on vasopressor support; Objective - Vital Signs/Intake and Output Vital Signs (last 24 hours): Temp Pulse Resp BP Pulse Ox 98.7 F 86 24 79/50 L 69 L 03/08/17 00:00 03/08/17 12:45 03/07/17 18:20 03/08/17 14:00 03/08/17 04:02 Intake and Output: 03/08/17 03/08/17 06:59 18:59 Intake Total 1546 600 Balance 1546 600 - Medications Medications: Current Medications Albuterol/Ipratropium (Duoneb 3 Mg/0.5 Mg (3 Ml) Ud) 3 ml IH [id number] [facility] Last Admin: 03/08/17 13:03 Dose: 3 ml Albuterol/Ipratropium (Duoneb 3 Mg/0.5 Mg (3 Ml) Ud) 3 ml IH Q2H PRN PRN Reason: Shortness of Breath Atenolol (Tenormin) 12.5 mg PO BID [facility] Last Admin: 03/08/17 09:33 Dose: Not Given Digoxin (Lanoxin) 0.125 mg PO MWF [facility] Last Admin: 03/07/17 09:43 Dose: 0.125 mg Diltiazem HCl (Cardizem Cd) 120 mg PO DAILY [facility] Last Admin: 03/08/17 09:32 Dose: Not Given Doxycycline Hyclate (Doryx) 100 mg PO Q12 [facility] PRN Reason: Protocol Stop: 03/15/17 22:01 Last Admin: 03/08/17 09:31 Dose: 100 mg Heparin Sodium (Porcine) (Heparin) 5,000 units SC Q8 [facility] PRN Reason: Protocol Last Admin: 03/08/17 13:24 Dose: 5,000 units Levetiracetam (Keppra 500mg Ivpb) 500 mg in 100 mls @ 400 mls/hr IVPB Q12 [facility] Last Admin: 03/08/17 09:31 Dose: 400 mls/hr NOREPINEPHRINE BIT/0.9 % NACL (Levophed 4 Mg/ 250 Ml Ns Premixed) 4 mg in 250 mls @ 15 mls/hr IV .[id number] PRN; Protocol; 4 MCG/MIN PRN Reason: TITRATE PER MD ORDER Last Titration: 03/08/17 04:05 Dose: Infused Dexmedetomidine HCl (Precedex 4 Mcg/Ml (100 Ml)) 400 mcg in 100 mls @ 4.468 mls /hr IV .[id number] PRN; Protocol; 0.2 MCG/KG/HR PRN Reason: Anxiety Last Admin: 03/08/17 10:31 Dose: 1.5 mcg/kg/hr, 33.509 mls/hr Vasopressin 20 units/ Dextrose 101 mls @ 9.09 mls/hr IV .Q11H7M DANICA; 0.03 U/MIN PRN Reason: Protocol Last Admin: 03/08/17 14:00 Dose: 9.09 mls/hr Dextrose (Dextrose 10% In Water) 500 mls @ 60 mls/hr IV .Q8H20M [facility] Last Admin: 03/08/17 12:01 Dose: 60 mls/hr Norepinephrine Bitartrate 8 mg (/ Sodium Chloride) 258 mls @ 77.4 mls/hr IV .Q3H20M [facility]ANICA; 40 MCG/MIN PRN Reason: Protocol Last Admin: 03/08/17 12:05 Dose: 40 mcg/min, 77.4 mls/hr Dobutamine HCl/Dextrose (Dobutamine/Dextrose 5% 500mg/250ml) 500 mg in 250 mls @ 6.702 mls/hr IV .Q24H PRN; Protocol; 2.5 MCG/KG/MIN PRN Reason: TITRATE PER PROTOCOL Last Admin: 03/08/17 12:45 Dose: 6.702 mls/hr Meropenem 500 mg/ Sodium (Chloride) 100 mls @ 100 mls/hr IVPB Q12 [facility] PRN Reason: Protocol Stop: 03/15/17 12:16 Lorazepam (Ativan) 2 mg IVP Q6H PRN; Protocol PRN Reason: Anxiety Ondansetron HCl (Zofran Inj) 4 mg IVP Q4H PRN PRN Reason: Nausea/Vomiting Pantoprazole Sodium (Protonix Inj) 40 mg IVP DAILY [facility] Last Admin: 03/08/17 09:31 Dose: 40 mg Tramadol HCl (Ultram) 50 mg PO TID PRN PRN Reason: Pain, severe (8-10) - Labs Labs: 03/08/17 05:45 03/08/17 05:45 PT 24.1 Seconds (9.9-11.8) H 03/08/17 10:45 INR 2.23 (0.93-1.08) H 03/08/17 10:45 APTT 35.5 Seconds (23.7-30.8) H 03/08/17 10:45 - Constitutional Appears: No Acute Distress - Head Exam Head Exam: NORMAL INSPECTION - ENT Exam ENT Exam: Mucous Membranes Moist - Respiratory Exam Respiratory Exam: Clear to Ausculation Bilateral. absent: Rales - Cardiovascular Exam Cardiovascular Exam: RRR, +S1, +S2 - GI/Abdominal Exam GI & Abdominal Exam: Soft. absent: Distended - Extremities Exam Additional comments: very mild lower leg edema; - Neurological Exam Additional comments: sedated; - Skin Skin Exam: Cyanosis Additional comments: cool distal ext and finger tips with cyanosis; Assessment and Plan (1) Acute renal failure (ARF) Assessment & Plan: ATN s/p chemo with pemetrexed; however, also concern for cardiorenal etiology in setting of severe pulmonary htn w/ RV overload; olio-anuric renal failure with severe lactic acidosis and hyperkalemia; initiated urgently on HD yesterday evening with ensuing hypotension and inability to complete treatment; Patient for HD today with worsening lactic acidosis and persistent hyperkalemia ; question of whether patient will benefit from another trial of gentle UF or actually needs fluid back; -Dialyzing again urgently on 2k/2.5Ca/40HCO3 dialysate with UF goal 1L net over 3 hours -Agree with starting inotropic agent dobutamine Status: Acute (2) Shock Assessment & Plan: Likely cardiogenic shock in setting of RV overload; severe lactic acidosis worsening; low procalcitionin level goes against sepsis but agree with empiric abx in critically ill state; -Patient being started on dobutamine, if will monitor for improvement; -HD to help offset acidosis Status: Acute (3) Lactic acidosis Assessment & Plan: In the setting of presumed cardiogenic shock; otherwise no specific focus of ischemia found to suggest another process; decreased lactate clearance with acute liver injury; HD as above as temporizing measure; Status: Acute (4) Pulmonary HTN Assessment & Plan: Secondary to severe COPD; trial of dobutamine may be helpful; Status: Acute (5) Hyperkalemia Assessment & Plan: In the setting of oligo-anuric renal failure; HD as above; Status: Acute - Assessment and Plan (Free Text) Assessment: Critical care time spent assessing patient and discussing with PMD, CCM team and other consultants > 35 minutes;
--- NOTE | 2017-03-08 14:08 | PN ---
DATE: SUBJECTIVE: The patient remained in Intensive Care Unit. The patient is intubated and sedated. Hemodialysis was attempted last night, but stopped due to hypotension. PHYSICAL EXAMINATION VITAL SIGNS: She is afebrile, temperature is 98.7, pulse is 92 and regular, and blood pressure is 94/55. GENERAL: She is intubated on FiO2 of 50% with oxygen saturation of 94%. HEENT: Head is normocephalic and atraumatic. Oral mucosa is dry. NECK: Supple. HEART: Regular rhythm and rate. LUNGS: With decreased breath sounds. No rales or rhonchi. ABDOMEN: Soft, nontender, and nondistended. EXTREMITIES: No edema, slightly cyanotic and cold. NEUROLOGICAL: Exam is not obtained. DIAGNOSTIC TESTS: CBC with persistent leukocytosis, WBC of 23.9, hemoglobin of 11.6, and platelet count of 161. Elevated granulocytes of 95.7. Chemistries: Elevated BUN of 44, creatinine of 4.2, and significantly elevated liver enzymes with bilirubin of 2.4, AST of 3000, ALT of 1600, and alkaline phosphatase of 152. Her troponin level about this morning is 0.59. Procalcitonin is negative. Preliminary cultures are negative. CT scan of the abdomen and pelvis showed no acute pathology. Chest x-ray this morning showed no acute infiltration. ASSESSMENT: 1. A 61-year-old female with multiorgan failure with acute renal failure, probably secondary to chemotherapy with attempted hemodialysis and hyperkalemia. 2. Severe hypotension, probably cardiogenic. No signs of severe sepsis at the present time. 3. Respiratory failure, presently intubated with acceptable oxygen saturation, on 50% FiO2. PLAN OF TREATMENT: Case was discussed with geological aide and Infectious Diseases specialist. We will attempt hemodialysis again today. Continue respiratory support with present oxygen saturation. We will continue IV wide-spectrum antibiotic coverage for possible sepsis. Case was discussed with family members. Prognosis is poor.Family will make decision regarding resuscitation . Keira Keith MD MTDMarissa
[2017-03-08] MEDS ORDERED: Sildenafil 20 MG TAB PO SCH (14:30)
--- NOTE | 2017-03-08 14:49 | PN ---
Dr. Kenney covering for Dr. Maguire. SUBJECTIVE: I was asked to evaluate the patient because of hypotension. The patient was evaluated yesterday by Dr. Maguire, known the have inoperable lung cancer with history of coronary angioplasty of the right coronary artery in July of this year with a bare-metal stent, history of severe pulmonary hypertension and significantly reduced right ventricular systolic function. The patient presented because of acute renal and liver failure possibly related to tumor lysis syndrome. The patient was found lethargic yesterday, transferred to ICU after intubation and required hemodialysis briefly because of her ongoing hypotension and is currently on Levophed infusion at 40 mcg per minute. No reported tachyarrhythmia. PHYSICAL EXAMINATION: VITAL SIGNS: Blood pressure 104/64, heart rate 86, temperature 98.7. HEENT: Normocephalic. CHEST: Diminished breath sounds over the bases. HEART: S1 and S2 regular. EXTREMITIES: No pedal edema or thigh edema. LABORATORY DATA: Hemoglobin and hematocrit 11.6 and 37.2, white count 23.9, platelet count 161,000. Troponin 0.59 and was borderline elevated yesterday. SMA-7; sodium 140, potassium 5.4, chloride 103, CO2 of 12, glucose 134, BUN 44, creatinine 4.2. Hepatitis profile is still pending. INR is 2.23. PTT is 35.5. Chest x-ray revealed borderline cardiomegaly with prominent bronchovascular markings. ASSESSMENT: 1. Hypotension, rule out underlying sepsis and hypovolemia. 2. Severe pulmonary hypertension and systolic right ventricular failure; however, clinical evidence of right-sided failure such as peripheral edema or ascites is lacking. 3. Liver failure possibly related to severe pulmonary hypertension. 4. Acute renal failure. 5. Inoperable lung cancer. RECOMMENDATIONS: Case was discussed at length with the regional medical director, with infectious disease specialist as well as Dr. Cervantes, the piper installer. The patient can be started on low-dose Dobutrex infusion; however, volume replacement with normal saline is indicated at this time. In the meantime, continue IV meropenem, continue vasopressors including vasopressin as well as Levophed. Overall, prognosis appears to be grave. Benjamin Kenney MD
[2017-03-08] MEDS: Meropenem 500 MG in Sodium Chloride 0.9% 100 ML IVPB SCH (16:04)
--- NOTE | 2017-03-08 21:43 | CARD ---
APPROVED REPORT EXAM: Two-dimensional and M-mode echocardiogram with Doppler and color Doppler. INDICATION HYPOTENSIVE 2D DIMENSIONS Left Atrium (2D)4.1 (1.6-4.0cm)IVSd1.1 (0.7-1.1cm) LVDd2.8 (3.9-5.9cm)PWd1.2 (0.7-1.1cm) LVDs1.9 (2.5-4.0cm)FS (%) 31.8 % LVEF (%)61.7 (>50%) M-Mode DIMENSIONS Aortic Root2.80 (2.2-3.7cm)Aortic Cusp Exc.1.50 (1.5-2.0cm) Aortic Valve AoV Peak [id number]/Rene Peak GR.10mmHg Mitral Valve E/A ratio0.0 TDI E/Lateral E'0.0E/Medial E'0.0 Pulmonary Valve PV Peak Kbxsghho58.1cm/sPV Peak Grad.2mmHg Tricuspid Valve TR Peak [id number]/sRAP [id number] Peak Gr.158mmHg [id number] LEFT VENTRICLE The left ventricle is normal size. There is normal left ventricular wall thickness. The left ventricular function is normal. The left ventricular ejection fraction is within the normal range. There is normal LV segmental wall motion. Transmitral Doppler flow pattern is Grade I-abnormal relaxation pattern. RIGHT VENTRICLE The right ventricle is moderately dilated. There is normal right ventricular wall thickness. RV Systolic function is severely reduced. ATRIA The left atrium size is normal. The right atrium is severely dilated. AORTIC VALVE The aortic valve is mildly sclerotic. No aortic regurgitation is present. There is no aortic valvular stenosis. MITRAL VALVE The mitral valve is mildly thickened. There is no mitral valve regurgitation noted. There is no mitral valve stenosis. There is no evidence of mitral valve prolapse. TRICUSPID VALVE There is severe tricuspid regurgitation. There is severe pulmonary hypertension. GREAT VESSELS The IVC collapses <50% with inspiration. <Conclusion> There is normal left ventricular wall thickness. The left ventricular function is normal. The left ventricular ejection fraction is within the normal range. There is normal LV segmental wall motion. Transmitral Doppler flow pattern is Grade I-abnormal relaxation pattern. There is severe tricuspid regurgitation. There is severe pulmonary hypertension. The right ventricle is moderately dilated. RV Systolic function is severely reduced.
[2017-03-08] MEDS ORDERED: Metoprolol 1 mg/ml Inj IVP ONE (21:50)
[2017-03-08] MEDS: Chlorhexidine 0.12% Oral Sol 480 ml Bot PO SCH ×2 (23:42)
[2017-03-09] MEDS: DOBUTamine 500mg/250ml D5W 500 MG/250 ML BAG IV PRN ×2 (00:45→10:05)
[2017-03-09] MEDS: Dexmedetomidine HCl 4mcg/ml 400 MCG/100 ML BOTTLE IV PRN ×7 (00:45→21:45)
--- NOTE | 2017-03-09 02:33 | CON ---
PULMONARY CRITICAL CARE CONSULT DATE: 03/08/2017 REFERRING PHYSICIAN: REASON FOR CONSULT: Multiorgan failure, on ventilator; history of lung cancer; and chronic obstructive lung disease. HISTORY OF PRESENT ILLNESS: This is a 61-year-old female well-known to me through office on previous admission with multiple medical problem including cardiomyopathy, severe pulmonary hypertension, chronic obstructive lung disease, unresectable lung cancer, obstructive sleep apnea syndrome, coronary artery disease, history of coronary intervention, paroxysmal atrial fibrillation, severe mitral regurgitation, recently had a chemotherapy, was brought into ER, end up with multiple organ failure, requiring ventilator, high dose of pressors, renal replacement therapy, and presently on high dose of pressors and dobutamine. Family at the bedside. Case discussed with Dr. Gomez in details. No hemoptysis, no hematemesis, no hematuria, and no diarrhea reported. PAST MEDICAL HISTORY: As per history of present illness. SOCIAL HISTORY: Recently stop smoking. Denies any alcohol use. FAMILY HISTORY: Positive for chronic lung disease and sleep apnea syndrome. ALLERGIES: NO MEDICATIONS ALLERGIES REPORTED. SHE IS ALLERGIC TO SYED THOUGH. MEDICATIONS: Presently, she is on Ativan 2 mg q.6 hours p.r.n., Cardizem CD 120 mg daily, on IV fluid, she is on dobutamine 5 mcg/kg/minute, doxycycline 100 mg twice a day, DuoNeb q.6 hours p.r.n., heparin 5000 units subcutaneously q.8 hours, Keppra 500 mg q.12 hours, digoxin 0.125 mg with meals, meropenem 500 mg q.12 hours, she is on Levophed 40 mcg, also on Precedex, Protonix IV, Tenormin 12.5 mg twice a day, Ultram 50 mg 3 times a day p.r.n., also on vasopressin, and Zofran. REVIEW OF SYSTEMS: Presently had a seizure, not feeling well lately, cough, and shortness of breath. No hemoptysis, no hematemesis, no diarrhea, and no leg swelling. PHYSICAL EXAMINATION: GENERAL: Intubated and sedated. VITAL SIGNS: Temperature 98, heart rate is 102, respiratory rate is 18, blood pressure 130/73, and pulse ox 96% on ventilator with supplement oxygen. HEENT: Moist mucous membrane, ET tube, no secretion. NECK: Supple. No JVD. LUNGS: Has crackles. Prolonged expiratory phase. HEART: S1 and S2, tachycardic. ABDOMEN: Soft and nondistended. EXTREMITIES: Not much edema. NEUROLOGICAL: Unresponsive, on ventilator. LABORATORY DATA: Shows, hemoglobin 11.6, hematocrit 37.2, WBC 23.9, and platelet count is 161. INR 2.23 and PTT is 36. Blood gases shows pH of 7.14, pCO2 of 26, O2 of 101, and glucose 216. Troponin 0.59. Sodium 140, potassium 5.4, chloride 103, bicarbonate 12, BUN 44, creatinine 4.2, glucose 78, calcium 7.4, phosphorus 9.8, magnesium 1.7, total bilirubin 2.4, AST 3062, ALT 1650, alkaline phosphatase 152, and albumin is 3.2. Microbiology, blood culture, urine culture, ET tube culture; there is no growth. Last chest x-ray done today shows pulmonary infiltrate. She had an echocardiogram done, report is still pending. ASSESSMENT AND PLAN: Multiorgan failure; respiratory failure, on ventilator; chronic obstructive lung disease; history of unresectable lung cancer, being on radiation and chemotherapy; severe pulmonary hypertension; valvular heart disease; sleep apnea syndrome; diabetes; renal failure; and metabolic acidosis. Case discussed with Dr. Gomez in detail. I had a long discussion with medical and then spoke to nursing staff. Need to increase dobutamine as tolerated if tachycardia may decrease it for at least go up to 8 to 10 mcg/kg/minute. The patient was started on sildenafil. I was strongly suggest to stop it; otherwise, it will collapse hemodynamically. Titrate Levophed to systolic blood pressure of 190. The patient may have renal insufficiency, being on steroids for years, Solu-Cortef 100 mg q.6 hours being given and first dose being given now. I will not be afraid to give her some fluids, she seems poorly dehydrated, antibiotics as per infectious diseases, being followed with multiple speciality including [facility], Cardiology, and Nephrology. Case discussed with the patient's family in detail. Followup serial ABG, chest x-ray, CBC and CMP in the morning. Critical care time more than 35 minutes. Thank you and we will follow with you. Serenity Martinez MD [facility] # [id number]
[2017-03-09] MEDS: Chlorhexidine 0.12% Oral Sol 480 ml Bot PO SCH ×6 (06:00→21:01)
[2017-03-09 06:02] LABS: GRAN # 10.63 (1.4-6.5); GRAN % 98.5 % (50.0-68.0); HEMATOCRIT 31.9 % (36.0-48.0); LYMPH # 0.1 (1.2-3.4); LYMPH % 1.2 % (22.0-35.0); MEAN CELL VOLUME 82.2 fl (80.0-105.0); MEAN CORPUSCULAR HEMOGLOBIN 26.5 pg (25.0-35.0); MEAN CORPUSCULAR HGB CONC 32.3 g/dl (31.0-37.0); MONO % 0.3 % (1.0-6.0); PLATELET COUNT 74 10^3/uL (120.0-450.0); RED CELL DISTRIBUTION WIDTH 17.1 % (11.5-14.5); WHITE BLOOD COUNT 10.8 10^3/ul (4.5-11.0)
[2017-03-09 06:05] LABS: INR 1.95 (0.93-1.08); PARTIAL THROMBOPLASTIN TIME 35.7 Seconds (23.7-30.8)
[2017-03-09 06:15] LABS: ALB/GLOB RATIO 1.4 (1.1-1.8); MAGNESIUM 1.7 mg/dL (1.7-2.2); PHOSPHOROUS 5.7 mg/dL (2.5-4.5); POTASSIUM 4.6 mmol/L (3.6-5.0); TOTAL PROTEIN 4.6 g/dL (5.8-8.3)
[2017-03-09 06:19] LABS: ARTERIAL BLOOD GAS HCO3 20.9 mmol/L (21-28); ARTERIAL BLOOD GAS O2 CAPACITY 14.2 mL/dl (16-24); ARTERIAL BLOOD GAS O2 CONTENT 13.6 ML/dl (15-23); ARTERIAL BLOOD GAS PH 7.36 (7.35-7.45); ARTERIAL BLOOD HGB O2 SAT 92.6 % (95.0-98.0); CARBOXYHEMOGLOBIN 2.5 % (0.5-1.5); HHB 4.1 % (0-5); METHEMOGLOBIN 0.8 % (0.0-3.0)
[2017-03-09 06:32] LABS: CALCIUM 6.9 mg/dL (8.4-10.5)
[2017-03-09] MEDS: Albuterol-Ipratrop 3 mg / 0.5 (3 ml) UD IH SCH ×2 (08:10→14:29)
[2017-03-09] MEDS: Vasopressin 20 UNITS in Dextrose 5% In Water 100 ML IV SCH ×2 (08:11→20:29)
[2017-03-09] MEDS: Meropenem 500 MG in Sodium Chloride 0.9% 100 ML IVPB SCH ×2 (10:03→21:51)
[2017-03-09] MEDS: levETIRAcetam 500mg IVPB 500 MG/100 ML BAG IVPB SCH ×2 (10:04→21:41)
--- NOTE | 2017-03-09 10:09 | PN ---
DOORKEEPER NOTE DATE: 03/09/2017 SUBJECTIVE: The patient is on the ventilator with FiO2 of 50%. She continues to require sedation and is on Levophed as well as vasopressin for blood pressure . Note that, the patient has been made DNR as per family. PHYSICAL EXAMINATION: VITAL SIGNS: Temperature is 99.1, pulse is 115, respirations are 18, and blood pressure 125/81. SKIN: Warm and dry. HEENT: Head is atraumatic and normocephalic. Eyes are reactive to light. Ears, nose and throat seemed to be within normal limits. NECK: Supple. No JVD. No thyroid enlargement. No lymph nodes. HEART: Irregular rate and rhythm. Normal S1, S2. Tachycardic. LUNGS: Reveal rare rhonchi bilaterally. ABDOMEN: Soft. Decreased bowel sounds. GENITALIA: Deferred. RECTAL: Deferred. MUSCULOSKELETAL: No joint deformities. EXTREMITIES: Reveal trace edema. NEUROLOGICAL: The patient is sedated on the ventilator. LABORATORY DATA: The patient's white count is 10.8, hemoglobin 10.3, hematocrit 31.9 with platelets of 74,000. Her arterial blood gas revealed a pH of 7.36, pCO2 of 37, and pO2 of 69. Sodium is 135, potassium is 4.6, chloride 100, CO2 of 24 with a BUN of 40, creatinine of 2.9, and a glucose of 241. Chest x-ray is pending. IMPRESSION: This patient has respiratory failure requiring ventilator support. She has severe metabolic acidosis and septic shock. The patient has a history of stage IIIB lung cancer and is noticed to have acute renal failure and metabolic acidosis. She has end-stage renal disease and is vent-dependent with FiO2 of 50%. Blood glucose is stable at this time. She also has a history of chronic obstructive pulmonary disease, cor pulmonale, pulmonary hypertension as well as anemia. PLAN: We will continue with ventilator support and decrease the FiO2 as tolerated. The patient will continue with vasopressin, Levophed, Precedex, and we will continue with the aggressive pulmonary toilet. She is scheduled for hemodialysis as per renal and we will continue with antibiotics. We will DC the D10 and follow her fingerstick and continue with bronchodilators. Marcos Tiwari MD [facility] # [id number]
[2017-03-09] MEDS ORDERED: Magnesium Sulfate 1 gm in D5W 1 GM/100 ML BAG IVPB ONE (10:24)
[2017-03-09] MEDS: diltiaZEM 120 mg/24 Hours CD Cap PO SCH (10:33)
[2017-03-09] MEDS: Phenytoin 100 mg/4 ml Oral Susp UD PO SCH ×3 (10:50→21:57)
--- NOTE | 2017-03-09 10:50 | CP.PCM.PN ---
Subjective - Date & Time of Evaluation Date of Evaluation: 03/09/17 Time of Evaluation: 10:46 - Subjective Subjective: 61 yo F w/ stage IIIB small cell CA, COPD, severe pulm htn, admitted with acute renal failure, severe lactic acidosis, shock; Patient s/p 2nd HD session last night; started on dobutamine as well; developed tachyarrythmias and ensuing hypotension; Objective - Vital Signs/Intake and Output Vital Signs (last 24 hours): Temp Pulse Resp BP Pulse Ox 99.1 F 148 H 22 98/71 L 84 L 03/08/17 20:00 03/09/17 10:33 03/09/17 00:00 03/09/17 10:33 03/09/17 00:45 Intake and Output: 03/09/17 03/09/17 06:59 18:59 Intake Total 3294 600 Output Total 1550 Balance 1744 600 - Medications Medications: Current Medications Albuterol/Ipratropium (Duoneb 3 Mg/0.5 Mg (3 Ml) Ud) 3 ml IH [id number] [facility] Last Admin: 03/08/17 21:15 Dose: Not Given Albuterol/Ipratropium (Duoneb 3 Mg/0.5 Mg (3 Ml) Ud) 3 ml IH Q2H PRN PRN Reason: Shortness of Breath Atenolol (Tenormin) 12.5 mg PO BID [facility] Last Admin: 03/08/17 09:33 Dose: Not Given Chlorhexidine Gluconate (Peridex) 15 ml PO Q4 [facility] Last Admin: 03/09/17 08:14 Dose: 1 applic Digoxin (Lanoxin) 0.125 mg PO MWF [facility] Last Admin: 03/07/17 09:43 Dose: 0.125 mg Diltiazem HCl (Cardizem Cd) 120 mg PO DAILY [facility] Last Admin: 03/09/17 10:33 Dose: Not Given Doxycycline Hyclate (Doryx) 100 mg PO Q12 [facility] PRN Reason: Protocol Stop: 03/15/17 22:01 Last Admin: 03/09/17 10:05 Dose: 100 mg Heparin Sodium (Porcine) (Heparin) 5,000 units SC Q8 [facility] PRN Reason: Protocol Last Admin: 03/09/17 07:00 Dose: 5,000 units Hydrocortisone Sodium Succinate (Solu-Cortef) 100 mg IVP Q8 [facility] Last Admin: 03/09/17 07:00 Dose: 100 mg Levetiracetam (Keppra 500mg Ivpb) 500 mg in 100 mls @ 400 mls/hr IVPB Q12 [facility] Last Admin: 03/09/17 10:04 Dose: 400 mls/hr Dexmedetomidine HCl (Precedex 4 Mcg/Ml (100 Ml)) 400 mcg in 100 mls @ 4.468 mls /hr IV .[id number] PRN; Protocol; 0.2 MCG/KG/HR PRN Reason: Anxiety Last Admin: 03/09/17 10:03 Dose: 1.5 mcg/kg/hr, 33.509 mls/hr Vasopressin 20 units/ Dextrose 101 mls @ 9.09 mls/hr IV .[id number] [facility]; 0.03 U/MIN PRN Reason: Protocol Last Admin: 03/09/17 08:11 Dose: 9.09 mls/hr Norepinephrine Bitartrate 8 mg (/ Sodium Chloride) 258 mls @ 77.4 mls/hr IV .Q3H20M [facility]; 40 MCG/MIN PRN Reason: Protocol Last Admin: 03/09/17 08:09 Dose: 40 mcg/min, 77.4 mls/hr Meropenem 500 mg/ Sodium (Chloride) 100 mls @ 100 mls/hr IVPB Q12 [facility] PRN Reason: Protocol Stop: 03/15/17 12:16 Last Admin: 03/09/17 10:03 Dose: 100 mls/hr Dobutamine HCl/Dextrose (Dobutamine/Dextrose 5% 500mg/250ml) 500 mg in 250 mls @ 6.702 mls/hr IV .Q24H PRN; Protocol; 2.5 MCG/KG/MIN PRN Reason: TITRATE PER PROTOCOL Last Admin: 03/09/17 10:05 Dose: 10 mcg/kg/min, 26.807 mls/hr Dextrose (Dextrose 10% In Water) 500 mls @ 30 mls/hr IV .[id number] [facility] Last Admin: 03/08/17 18:55 Dose: 30 mls/hr Calcium Gluconate 1,000 mg/ (Dextrose) 110 mls @ 110 mls/hr IVPB ONCE ONE Stop: 03/09/17 11:23 Magnesium Sulfate/Dextrose (Magnesium Sulfate 1 Gm/100 Ml D5w) 1 gm in 100 mls @ 100 mls/hr IVPB ONCE ONE Stop: 03/09/17 11:23 Last Admin: 03/09/17 10:37 Dose: 100 mls/hr Lorazepam (Ativan) 2 mg IVP Q6H PRN; Protocol PRN Reason: Anxiety Last Admin: 03/09/17 01:53 Dose: 2 mg Ondansetron HCl (Zofran Inj) 4 mg IVP Q4H PRN PRN Reason: Nausea/Vomiting Pantoprazole Sodium (Protonix Inj) 40 mg IVP DAILY [facility] Last Admin: 03/09/17 10:05 Dose: 40 mg Phenytoin (Dilantin) 100 mg PO Q8 [facility] Tramadol HCl (Ultram) 50 mg PO TID PRN PRN Reason: Pain, severe (8-10) - Labs Labs: 03/09/17 05:45 03/09/17 05:45 PT 21.1 Seconds (9.9-11.8) H 03/09/17 05:45 INR 1.95 (0.93-1.08) H 03/09/17 05:45 APTT 35.7 Seconds (23.7-30.8) H 03/09/17 05:45 - Constitutional Appears: No Acute Distress - Head Exam Head Exam: NORMAL INSPECTION - ENT Exam ENT Exam: Mucous Membranes Moist - Respiratory Exam Respiratory Exam: Clear to Ausculation Bilateral. absent: Rales - Cardiovascular Exam Cardiovascular Exam: Tachycardia, REGULAR RHYTHM - GI/Abdominal Exam GI & Abdominal Exam: Soft. absent: Distended, Tenderness - Exam Exam: absent: Bladder Distension - Extremities Exam Additional comments: no/minimal leg edema; - Neurological Exam Additional comments: sedated; responds to noxious stimuli; - Skin Skin Exam: Warm. absent: Cyanosis Additional comments: Warm distal ext without cyanosis; Assessment and Plan (1) Acute renal failure (ARF) Assessment & Plan: ATN s/p chemo with pemetrexed; however, also with superimposed cardiorenal etiology likely due to RV volume overload; s/p 2nd HD session yesterday with < 1L net UF achieved; since being started on dobutamine, patient now non-oliguric ; relatively stable electrolyte status; no indication for [employer] today, will allow to auto-diurese on dobutamine; Status: Acute (2) Shock Assessment & Plan: Still on vasopressor support with levophed and vasopressin; however, since starting dobutamine, lactic acidosis appears to have resolved (anion gap normalized), no longer with cool extremities and no longer oliguric, all consistent with cardiogenic shock secondary to RV dysfunction; -Recommend to continue inotropic support; should discuss with cardiology/ pulmonary whether to switch to milrinone to help avoid tachyarrhythmias; Status: Acute (3) Lactic acidosis Assessment & Plan: Resolved with inotropic support; continue, see above; Status: Acute (4) Pulmonary HTN Assessment & Plan: With ensuing RV overload worsened due to acute renal failure; continue inotropic support; should allow to auto-diurese, avoid giving IVF for transient hypotension; Status: Acute (5) Hyperkalemia Status: Acute (6) Electrolyte disturbance Assessment & Plan: Hypocalcemia (when corrected for low albumin); mild hypomagnesemia; in setting of tachyarrhythmias, will supplement; -Calcium gluconate 1g and Mag sulfate 1g, both in D5W Status: Acute
--- NOTE | 2017-03-09 11:21 | RAD ---
HISTORY: Intubated, follow-up. Technique: Single view portable semi erect @ 06:06. COMPARISON: March 08, 2017. FINDINGS: LUNGS: Stable multifocal infiltrates PLEURA: No significant pleural effusion identified, no pneumothorax apparent. CARDIOVASCULAR: Cardiomegaly. OSSEOUS STRUCTURES: No significant abnormalities. VISUALIZED UPPER ABDOMEN: Normal. OTHER FINDINGS: Stable, satisfactory position ventilatory, vascular and nasogastric apparatus. IMPRESSION: No significant interval change compared to the prior examination(s).
--- NOTE | 2017-03-09 13:23 | PN ---
DATE: SUBJECTIVE: The patient remains in the intensive care unit. The patient is intubated on vasopressors and sedated. The patient had hemodialysis yesterday. Increase urine output since yesterday noted. PHYSICAL EXAMINATION: VITAL SIGNS: Temperature 99.1, pulse rate 148 and regular since this morning, blood pressure 98/71, respiratory rate 22, and oxygen saturation 84 to 90. GENERAL: The patient is sedated. HEENT: Head is normocephalic and atraumatic. NECK: Supple. LUNGS: With decreased breath sounds. No rales or rhonchi. HEART: With supraventricular tachycardia. Heart rate 140 per minute and regular. ABDOMEN: Soft, nontender, and nondistended. EXTREMITIES: Warm. Slight edema of bilateral hands. DIAGNOSTIC STUDIES: This morning; CBC with improved WBC 10.8 this morning, hemoglobin stable 10.3, hematocrit 31.9 and there is drop of platelet count 274 this morning. Chemistry with improved electrolytes after hemodialysis. Sodium is 135 and potassium is 4.6 this morning. Her renal function; BUN 40 and creatinine 2.9. The patient has elevated glucose 238 this morning. Liver enzymes remain very high, but stabilized since yesterday. Blood gas improved with resolved acidosis. Chest x-ray this morning, no significant changes. ASSESSMENT: 1. Cardiogenic shock with severe hypotension, presently stable on vasopressors. 2. Supraventricular tachycardia superimposed on right heart failure and severe valve disease. 3. Acute renal failure, improved with hemodialysis with improved urine output since yesterday. 4. Respiratory failure stable on present respiratory setting with oxygen saturation ranging in upper 80s and low 90s. PLAN OF TREATMENT: Case was discussed with director data management and music librarian this morning. Present acute problem with cardiac arrhythmia. We will monitor for now. We will avoid digoxin , beta-parrish, and calcium-channel parrish at present time due to hypotension. We will continue vasopressors and respiratory support with ventilator. The patient will be maintained on present IV antibiotic coverage with wide spectrum antibiotics. The patient prognosis is very poor. Family members decided to have the patient on do not resuscitate status for now. Keira Keith MD [facility] # [id number] MTDD
[2017-03-09] MEDS ORDERED: Phenytoin 100 mg/4 ml Oral Susp UD PO SCH (14:00)
--- NOTE | 2017-03-09 14:26 | CP.PCM.PN ---
Subjective - Date & Time of Evaluation Date of Evaluation: 03/09/17 Time of Evaluation: 10:20 - Subjective Subjective: Still on ventilator and vasopressor support. No fevers overnight. Objective - Vital Signs/Intake and Output Vital Signs (last 24 hours): Temp Pulse Resp BP Pulse Ox 99.1 F 115 H 22 130/85 84 L 03/08/17 20:00 03/09/17 03:00 03/09/17 00:00 03/09/17 01:30 03/09/17 00:45 Intake and Output: 03/09/17 03/09/17 06:59 18:59 Intake Total 1000 Balance 1000 - Medications Medications: Current Medications Albuterol/Ipratropium (Duoneb 3 Mg/0.5 Mg (3 Ml) Ud) 3 ml IH [id number] [facility] Last Admin: 03/08/17 21:15 Dose: Not Given Albuterol/Ipratropium (Duoneb 3 Mg/0.5 Mg (3 Ml) Ud) 3 ml IH Q2H PRN PRN Reason: Shortness of Breath Atenolol (Tenormin) 12.5 mg PO BID [facility] Last Admin: 03/08/17 09:33 Dose: Not Given Chlorhexidine Gluconate (Peridex) 15 ml PO Q4 [facility] Last Admin: 03/09/17 07:02 Dose: Not Given Digoxin (Lanoxin) 0.125 mg PO MWF [facility] Last Admin: 03/07/17 09:43 Dose: 0.125 mg Diltiazem HCl (Cardizem Cd) 120 mg PO DAILY [facility] Last Admin: 03/08/17 09:32 Dose: Not Given Doxycycline Hyclate (Doryx) 100 mg PO Q12 [facility] PRN Reason: Protocol Stop: 03/15/17 22:01 Last Admin: 03/08/17 22:03 Dose: 100 mg Heparin Sodium (Porcine) (Heparin) 5,000 units SC Q8 [facility] PRN Reason: Protocol Last Admin: 03/09/17 07:00 Dose: 5,000 units Hydrocortisone Sodium Succinate (Solu-Cortef) 100 mg IVP Q8 [facility] Last Admin: 03/09/17 07:00 Dose: 100 mg Levetiracetam (Keppra 500mg Ivpb) 500 mg in 100 mls @ 400 mls/hr IVPB Q12 [facility] Last Admin: 03/08/17 22:08 Dose: 400 mls/hr Dexmedetomidine HCl (Precedex 4 Mcg/Ml (100 Ml)) 400 mcg in 100 mls @ 4.468 mls /hr IV .[id number] PRN; Protocol; 0.2 MCG/KG/HR PRN Reason: Anxiety Last Admin: 03/09/17 03:45 Dose: 1.5 mcg/kg/hr, 33.509 mls/hr Vasopressin 20 units/ Dextrose 101 mls @ 9.09 mls/hr IV .Q11H7M [facility]; 0.03 U/MIN PRN Reason: Protocol Last Admin: 03/08/17 23:05 Dose: 9.09 mls/hr Norepinephrine Bitartrate 8 mg (/ Sodium Chloride) 258 mls @ 77.4 mls/hr IV .Q3H20M [facility]; 40 MCG/MIN PRN Reason: Protocol Last Admin: 03/09/17 07:03 Dose: 40 mcg/min, 77.4 mls/hr Meropenem 500 mg/ Sodium (Chloride) 100 mls @ 100 mls/hr IVPB Q12 [facility] PRN Reason: Protocol Stop: 03/15/17 12:16 Last Admin: 03/08/17 16:04 Dose: Not Given Dobutamine HCl/Dextrose (Dobutamine/Dextrose 5% 500mg/250ml) 500 mg in 250 mls @ 6.702 mls/hr IV .Q24H PRN; Protocol; 2.5 MCG/KG/MIN PRN Reason: TITRATE PER PROTOCOL Last Admin: 03/09/17 00:45 Dose: 10 mcg/kg/min, 26.807 mls/hr Dextrose (Dextrose 10% In Water) 500 mls @ 30 mls/hr IV .[id number] [facility] Last Admin: 03/08/17 18:55 Dose: 30 mls/hr Lorazepam (Ativan) 2 mg IVP Q6H PRN; Protocol PRN Reason: Anxiety Last Admin: 03/09/17 01:53 Dose: 2 mg Ondansetron HCl (Zofran Inj) 4 mg IVP Q4H PRN PRN Reason: Nausea/Vomiting Pantoprazole Sodium (Protonix Inj) 40 mg IVP DAILY [facility] Last Admin: 03/08/17 09:31 Dose: 40 mg Tramadol HCl (Ultram) 50 mg PO TID PRN PRN Reason: Pain, severe (8-10) - Labs Labs: 03/09/17 05:45 03/09/17 05:45 PT 21.1 Seconds (9.9-11.8) H 03/09/17 05:45 INR 1.95 (0.93-1.08) H 03/09/17 05:45 APTT 35.7 Seconds (23.7-30.8) H 03/09/17 05:45 - Constitutional Appears: Other (Intubated, sedated) - Head Exam Head Exam: NORMAL INSPECTION - ENT Exam Additional comments: ET tube in place - Neck Exam Neck Exam: absent: Meningismus - Respiratory Exam Respiratory Exam: Decreased Breath Sounds Additional comments: right anterior chest wall port-a-cath in place - Cardiovascular Exam Cardiovascular Exam: +S1, +S2 - GI/Abdominal Exam GI & Abdominal Exam: Soft. absent: Tenderness Assessment and Plan - Assessment and Plan (Free Text) Plan: Assessment consider severe sepsis with left lower lobe healthcare-associated pneumonia in this patient with cough presenting with acute hypoxic respiratory failure and severe pulomnary HTN requiring ventilator support with acute on chronic renal failure, just underwent dialysis yesterday history of sepsis due to right lower lobe healthcare-associated pneumonia stage3 IIIB non-small cell lung cancer S/P chemotherapy S/P port-a-cath placement COPD atrial fibrillation peripheral vascular disease S/P femoral stenting benign brain tumor S/P removal in 2013 seizure disorder pulmonary HTN CAD S/P PCI chronic CHF Plan on Merrem and Doxycycline day 4 - has been given a dose of IV Vancomycin as well ; follow up final sputum and blood cx results (negative so far, sputum showing normal oral roberta) CT chest shows increased left lower lobe infiltrate - CT scan of the abdomen and pelvis is showing some infiltrates on the left lower lobe; PCT is only 0.28 but there is an infiltrate note will continue to monitor clinically discussed with Dr. Singh, Dr. Cervantes and Dr. Kenney Overall prognosis is poor
[2017-03-09] MEDS: Amiodarone 360 mg/D5W 200 ml 360 MG/200 ML BAG IV SCH (15:34)
--- NOTE | 2017-03-09 15:38 | PN ---
SUBJECTIVE: The patient is to stay on Levophed infusion at 40 mcg per minute besides vasopressin. She underwent hemodialysis yesterday. She is currently in sinus tachycardia at the rate of 149. PHYSICAL EXAMINATION: VITAL SIGNS: Blood pressure 98/71, heart rate 148. HEENT: Pale conjunctivae. CHEST: Minimal rhonchi. HEART: S1 and S2 regular. EXTREMITIES: No edema. LABORATORY DATA: Hemoglobin and hematocrit 10.3 and 31.9; white count 10.8; platelet count has dropped to 74,000. Today's BUN and creatinine are 40 and 2.9 respectively, calcium is 6.9, glucose 208. AST and ALT are 1689 and 1601 respectively. Today's chest x-ray, no significant interval changes. ASSESSMENT: 1. Respiratory failure. 2. , consider underlying sepsis and hypovolemia. 3. Severe pulmonary hypertension and severe right ventricular failure. 4. Liver failure. 5. Inoperable lung cancer. 6. Junctional tachycardia. RECOMMENDATIONS: Case was discussed at length with the medical team including the tricot knitter and the clerical office worker as well as the primary physician. I recommended optimizing IV hydration, discontinue any future digoxin, continue IV doxycycline and IV meropenem. The patient is not a suitable candidate for beta blockers or calcium channel blockers. I recommended to either discontinue the Dobutrex or reduce the dose to 2.5 mcg/kg per minute. Benjamin Kenney MD
[2017-03-09] MEDS ORDERED: Sodium Chloride 0.9% 500 ML IV STA (17:04)
--- NOTE | 2017-03-09 18:30 | PN ---
DATE: 03/09/2017 PULMONARY PROGRESS NOTE REFERRING PHYSICIAN: Dr. Singh. SUBJECTIVE: She is intubated and sedated on multiple pressors, was dialyzed, removed about 1.5 liter of fluid. Done well on dobutamine overnight, but unfortunately ended up with arrhythmia with tachycardia, heart rate up to 140 to 150. Still a lot of pressors, but blood pressure is slowly improving. Not much ET tube secretion. No vomiting. No hematuria. No diarrhea. No leg swelling reported. She is making some urine since started on dobutamine. PHYSICAL EXAMINATION: GENERAL: On ventilator and sedated. VITAL SIGNS: Afebrile. Heart rate is 140 to 150, respiratory rate is 20 to 30, blood pressure last one 130/80, pulse ox is 99% on ventilator. HEENT: Moist mucous membrane. NECK: Supple. ET tube not much secretion. LUNGS: Scattered rhonchi. HEART: S1 and S2. Tachycardic. ABDOMEN: Soft and nondistended. EXTREMITIES: There is no edema. NEUROLOGIC: Intubated and sedated. LABORATORY DATA: Shows hemoglobin 10.3, hematocrit 31.9, WBC 10.8, platelet count is 74, INR is 1.95, PTT 36, blood gas this morning show pH 7.36, PCO2 37, O2 69. He is on a ventilator 50% oxygen. Sodium 135, potassium 4.6, chloride 100, bicarbonate 24, BUN 40, creatinine 2.9, glucose 280, calcium 6.9, phosphorus 5.7, magnesium 1.7, AST 1689, ALT 1601, alkaline phosphatase is 131, albumin is 2.7. Microbiology is unremarkable. Chest x-ray shows bilateral infiltrates. MEDICATIONS: She is on Ativan 2 mg q. 6 hours p.r.n., Dilantin 100 mg q. 8 hours, on dobutamine, which is decreased from 10 mcg to 2.5 mcg, doxycycline 100 mg twice a day, DuoNeb q. 2 hours p.r.n., also on DuoNeb q. 6 hours round the clock, heparin 5000 subcutaneous q. 8 hours, Keppra 500 mg q. 12 hours, digoxin 0.125 mg with meals Friday, Friday, Friday, meropenem 500 mg q. 12 hours, she is on Levophed, Precedex IV, Protonix IV daily 40 mg, Solu-Cortef 100 mg q. 8 hours, Tenormin is at 12.5 mg twice a day, which is on hold, Ultram 50 mg 3 times a day p.r.n., also on vasopressor, Zofran p.r.n. basis. IMPRESSION AND PLAN: Multiorgan failure, has a severe pulmonary hypertension with cardiomyopathy, valvular heart disease, severe obstructive lung disease with unresectable lung cancer, been on chemo and radiation therapy. Presently on renal failure. Has a history of paroxysmal atrial fibrillation, presently feels like a sinus tach. So dobutamine, which seems working well to stabilize her kidney function and blood pressure, but unfortunately giving her tachycardia which is from 10 mcg, decreased to 2.5 mcg and I agree with this, but need to control heart little better to get increased cardiac output and decreased PA pressure. We will start her on amiodarone drip and watch closely hemodynamically. Case discussed with overcoiler. I will leave the Levophed at a present dose. Continue Solu-Cortef. Change nebulizer treatment only to p.r.n. basis. Overall, poor prognosis. Spoke to family in detail. Follow up ABG, chest x-ray, CBC, CMP in the morning. Critical care time spent more than 35 minutes. We will keep checking with the nurse patient's prognosis, response to present treatment and we will manipulate and medication as required. Critical care time spent more than 35 minutes. Thank you and we will follow with you. Serenity Martinez MD
--- NOTE | 2017-03-09 19:33 | CARD ---
APPROVED REPORT EKG Measurement Heart [id number] <Conclusion> Junctional tachycardia Possible Right ventricular hypertrophy Nonspecific ST abnormality Abnormal QRS-T angle, consider primary T wave abnormality Abnormal ECG
[2017-03-09] MEDS: Albuterol-Ipratrop 3 mg / 0.5 (3 ml) UD IH PRN (19:47)
[2017-03-10] MEDS: Chlorhexidine 0.12% Oral Sol 480 ml Bot PO SCH ×5 (00:28→21:58)
[2017-03-10] MEDS: Dexmedetomidine HCl 4mcg/ml 400 MCG/100 ML BOTTLE IV PRN ×7 (01:01→23:23)
--- NOTE | 2017-03-10 02:02 | PN ---
DATE: 03/09/2017. LOCATION: Patient is in CCU bed #5. SUBJECTIVE: This is a 61-year-old female, who is admitted with acute kidney injury, rapidly progressing respiratory failure in addition to the kidney shut down after having the treatment earlier within the weak with Alimta, was short of breath at that time with a background history of having had COPD, congestive heart failure, coronary artery disease, paroxysmal atrial fibrillation. Patient had axillary artery cannulation. She also had catheter inserted through the groin for kidney dialysis and more that 1.5 L of fluid was done. She was started on multiple pressors and urinary output which had decreased dramatically to complete shut down has improved. She has been producing urine overnight and she has well done on dobutamine. Because of the arrhythmias, the patient with tachycardia, she is on multiple medications at this time to control both her heart rate and her pressure. Patient is intubated and on ventilator without much secretions. There is no evidence of DIC. Patient is not having any bleeding from any other sites of catheter insertions. No vomiting. No hematuria. No diarrhea. There is no leg swelling reported. PHYSICAL EXAMINATION: GENERAL: Patient is on vent and sedated. VITAL SIGNS: Patient is afebrile, heart rate is 140 to 150, respirations 20, blood pressure is 130/80, pulse ox is 99% on ventilator. HEENT: Moist mucous membranes. There is not much secretions within the ET tub noted. No blood noted. NECK: Supple. LUNGS: Reveal bilateral wheezes and rhonchi. HEART: Reveals tachycardia. ABDOMEN: Soft, protuberant and nondistended. There is no evidence on any abdominal signs of an acute abdomen. EXTREMITIES: There is no edema. NEUROLOGIC: Higher functions, patient is intubated and sedated. LABORATORY DATA: Reveals hemoglobin of 10.3, hematocrit 31, white count is 10, platelet count is 74, INR is 1.9, PTT is 36. ABG shows a pH of 7.36, pCO2 of 37, O2 of 69. She is on ventilator 50% oxygen. Sodium is 135, potassium is 12.6, chloride is 100, bicarbonate is 24, BUN is 40, creatinine is 2.9, glucose is 280, calcium is 6.9, phosphorous is 5.7, magnesium is 1.7, AST is 1689, ALT is 1601, which is trending down, could have been related to the hypotensive episode that she had over the entire last week. Alkaline phosphate is 131, albumin is 2.7. Cultures are negative. Chest x-ray shows bilateral infiltrates. MEDICATIONS: Patient is on Ativan 10 mg q. 6 hours p.r.n., Dilantin for seizures 100 mg q. 8 hours. She is on dobutamine. She is on doxycycline, she is on DuoNeb q. 2 hours. She is on heparin 5000 subcu q. 8 hours, Keppra 500 q. 12 hours, digoxin 0.125 twice a day, Merrem 500 q. 12 hours. She is on Levophed, Precedex, Protonix 40 mg IV daily, Solu-Cortef 100 q. 8 hours, Tenormin 12.5 mg twice a day which is on hold. Patient is on Zofran p.r.n. ASSESSMENT NOTES AND PLAN: Patient had metastatic stage IIIB non-small cell carcinoma of the lung, on systemic therapy, coronary artery disease, congestive heart failure, paroxysmal atrial fibrillation, pulmonary hypertension, valvular heart disease, obstructive sleep apnea, currently with multiorgan failure. Patient had been started on amiodarone drip. Along with the Levophed and dobutamine. She is on the Solu-Cortef. The nebulizer treatment has to be changed to p.r.n. We will follow the patient with you. My biggest concern now with the dropping platelet count just to make sure the patient is not developing disseminated intravascular coagulation. We will monitor for the counts and make appropriate recommendations in a.m. We will speak to Dr. Singh. We will speak to the family as well. Time spent greater than 35 minutes. Michelle Gomez MD
[2017-03-10] MEDS: Amiodarone 360 mg/D5W 200 ml 360 MG/200 ML BAG IV SCH ×2 (02:46→20:08)
[2017-03-10 05:30] LABS: ARTERIAL BLOOD GAS HCO3 18.2 mmol/L (21-28); ARTERIAL BLOOD GAS O2 CAPACITY 14.7 mL/dl (16-24); ARTERIAL BLOOD GAS O2 CONTENT 14.6 ML/dl (15-23); ARTERIAL BLOOD GAS PH 7.42 (7.35-7.45); ARTERIAL BLOOD HGB O2 SAT 96.1 % (95.0-98.0); CARBOXYHEMOGLOBIN 2.1 % (0.5-1.5); HHB 0.9 % (0-5); METHEMOGLOBIN 0.9 % (0.0-3.0)
[2017-03-10] MEDS: Phenytoin 100 mg/4 ml Oral Susp UD PO SCH ×3 (05:52→21:41)
[2017-03-10] MEDS: Acetaminophen 650mg/20.3ml solution UD GT PRN (06:27)
[2017-03-10 06:29] LABS: GRAN # 7.28 (1.4-6.5); GRAN % 96.5 % (50.0-68.0); HEMATOCRIT 32.3 % (36.0-48.0); LYMPH # 0.2 (1.2-3.4); LYMPH % 3.1 % (22.0-35.0); MEAN CELL VOLUME 81.6 fl (80.0-105.0); MEAN CORPUSCULAR HEMOGLOBIN 26.8 pg (25.0-35.0); MEAN CORPUSCULAR HGB CONC 32.8 g/dl (31.0-37.0); MONO % 0.4 % (1.0-6.0); PLATELET COUNT 52 10^3/uL (120.0-450.0); RED CELL DISTRIBUTION WIDTH 17.3 % (11.5-14.5); WHITE BLOOD COUNT 7.5 10^3/ul (4.5-11.0)
[2017-03-10 06:31] LABS: INR 1.64 (0.93-1.08); PARTIAL THROMBOPLASTIN TIME 34.7 Seconds (23.7-30.8)
[2017-03-10 06:59] LABS: ALB/GLOB RATIO 1.5 (1.1-1.8); BILIRUBIN,TOTAL 2.2 mg/dL (0.2-1.3); CALCIUM 7.5 mg/dL (8.4-10.5); MAGNESIUM 1.9 mg/dL (1.7-2.2); PHOSPHOROUS 5.4 mg/dL (2.5-4.5); POTASSIUM 5.1 mmol/L (3.6-5.0); TOTAL PROTEIN 4.8 g/dL (5.8-8.3)
[2017-03-10] MEDS ORDERED: DAPTOmycin 500 mg Inj (Cubicin) IV ONE (07:00)
[2017-03-10] MEDS: Vasopressin 20 UNITS in Dextrose 5% In Water 100 ML IV SCH ×2 (07:45→17:23)
[2017-03-10] MEDS: Albuterol-Ipratrop 3 mg / 0.5 (3 ml) UD IH PRN ×3 (08:31→19:50)
[2017-03-10] MEDS: Meropenem 500 MG in Sodium Chloride 0.9% 100 ML IVPB SCH ×2 (09:45→21:41)
[2017-03-10] MEDS: levETIRAcetam 500mg IVPB 500 MG/100 ML BAG IVPB SCH ×2 (09:45→21:40)
--- NOTE | 2017-03-10 09:47 | RAD ---
HISTORY: intubated, f/u COMPARISON: 03/09/2017 FINDINGS: The endotracheal tube terminates 4 cm proximal to the douglas. The nasogastric tube extends below the diaphragm, the tip is not visualized. The right IJV line terminates at the cavoatrial junction. LUNGS: The lungs are well inflated. There is mild pulmonary venous congestion. PLEURA: No significant pleural effusion identified, no pneumothorax apparent. CARDIOVASCULAR: There is persistent moderate cardiomegaly. OSSEOUS STRUCTURES: No significant abnormalities. VISUALIZED UPPER ABDOMEN: Normal. OTHER FINDINGS: None. IMPRESSION: Endotracheal tube terminates 4 cm proximal to the douglas. Persistent cardiomegaly and mild pulmonary venous congestion.
--- NOTE | 2017-03-10 10:15 | CP.PCM.PN ---
Subjective - Date & Time of Evaluation Date of Evaluation: 03/10/17 Time of Evaluation: 09:20 - Subjective Subjective: Continues to be needing ventilator and vasopressor support, developed hyperthermia this morning. Not responsive to verbal and tactile stimuli but has some non-purposeful movements of the extremities. Objective - Vital Signs/Intake and Output Vital Signs (last 24 hours): Temp Pulse Resp BP Pulse Ox 104 F H 105 H 22 153/98 H 99 03/10/17 06:27 03/10/17 02:00 03/09/17 00:00 03/10/17 02:00 03/10/17 02:00 Intake and Output: 03/09/17 03/10/17 18:59 06:59 Intake Total 4044 558 Output Total 450 Balance 3594 558 - Medications Medications: Current Medications Acetaminophen (Tylenol 650mg/20.3ml Solution Ud) 650 mg GT Q4H PRN PRN Reason: Fever >100.4 F Last Admin: 03/10/17 06:27 Dose: 650 mg Albuterol/Ipratropium (Duoneb 3 Mg/0.5 Mg (3 Ml) Ud) 3 ml IH Q2H PRN PRN Reason: Shortness of Breath Atenolol (Tenormin) 12.5 mg PO BID [facility] Last Admin: 03/08/17 09:33 Dose: Not Given Chlorhexidine Gluconate (Peridex) 15 ml PO Q4 [facility] Last Admin: 03/10/17 03:53 Dose: 1 applic Daptomycin (Cubicin) 540 mg 6 mg/kg (540 mg) IV ONCE ONE PRN Reason: Protocol Stop: 03/10/17 07:01 Digoxin (Lanoxin) 0.125 mg PO MWF [facility] Last Admin: 03/07/17 09:43 Dose: 0.125 mg Doxycycline Hyclate (Doryx) 100 mg PO Q12 [facility] PRN Reason: Protocol Stop: 03/15/17 22:01 Last Admin: 03/09/17 21:47 Dose: 100 mg Heparin Sodium (Porcine) (Heparin) 5,000 units SC Q8 [facility] PRN Reason: Protocol Last Admin: 03/10/17 05:52 Dose: 5,000 units Hydrocortisone Sodium Succinate (Solu-Cortef) 100 mg IVP Q8 [facility] Last Admin: 03/10/17 05:53 Dose: 100 mg Levetiracetam (Keppra 500mg Ivpb) 500 mg in 100 mls @ 400 mls/hr IVPB Q12 [facility] Last Admin: 03/09/17 21:41 Dose: 400 mls/hr Dexmedetomidine HCl (Precedex 4 Mcg/Ml (100 Ml)) 400 mcg in 100 mls @ 4.468 mls /hr IV .[id number] PRN; Protocol; 0.2 MCG/KG/HR PRN Reason: Anxiety Last Admin: 03/10/17 03:26 Dose: 1.5 mcg/kg/hr, 33.509 mls/hr Vasopressin 20 units/ Dextrose 101 mls @ 9.09 mls/hr IV .Q11H7M [facility]; 0.03 U/MIN PRN Reason: Protocol Last Admin: 03/09/17 20:29 Dose: 9.09 mls/hr Norepinephrine Bitartrate 8 mg (/ Sodium Chloride) 258 mls @ 77.4 mls/hr IV .Q3H20M [facility]; 40 MCG/MIN PRN Reason: Protocol Last Admin: 03/10/17 03:28 Dose: 40 mcg/min, 77.4 mls/hr Meropenem 500 mg/ Sodium (Chloride) 100 mls @ 100 mls/hr IVPB Q12 [facility] PRN Reason: Protocol Stop: 03/15/17 12:16 Last Admin: 03/09/17 21:51 Dose: 100 mls/hr Dextrose (Dextrose 10% In Water) 500 mls @ 30 mls/hr IV .[id number] [facility] Last Admin: 03/08/17 18:55 Dose: 30 mls/hr Amiodarone HCl/Dextrose (Nexterone 360 Mg In D5w 200 Ml (Premix)) 360 mg in 200 mls @ 16.667 mls/hr IV .Q12H [facility]; 0.5 MG/MIN PRN Reason: Protocol Last Admin: 03/10/17 02:46 Dose: 16.667 mls/hr Lorazepam (Ativan) 2 mg IVP Q6H PRN; Protocol PRN Reason: Anxiety Last Admin: 03/09/17 01:53 Dose: 2 mg Ondansetron HCl (Zofran Inj) 4 mg IVP Q4H PRN PRN Reason: Nausea/Vomiting Pantoprazole Sodium (Protonix Inj) 40 mg IVP DAILY [facility] Last Admin: 03/09/17 10:05 Dose: 40 mg Phenytoin (Dilantin) 100 mg PO Q8 [facility] Last Admin: 03/10/17 05:52 Dose: 100 mg Tramadol HCl (Ultram) 50 mg PO TID PRN PRN Reason: Pain, severe (8-10) - Labs Labs: 03/10/17 06:00 03/09/17 05:45 PT 17.7 Seconds (9.9-11.8) H 03/10/17 06:00 INR 1.64 (0.93-1.08) H 03/10/17 06:00 APTT 34.7 Seconds (23.7-30.8) H 03/10/17 06:00 - Constitutional Appears: Other (intubated, on vasopressor support) - Head Exam Head Exam: NORMAL INSPECTION - ENT Exam Additional comments: ET tube in place - Respiratory Exam Respiratory Exam: Rales (scattered) Additional comments: right anterior chest wall port-a-cath in place - Cardiovascular Exam Cardiovascular Exam: +S1, +S2 - GI/Abdominal Exam GI & Abdominal Exam: Soft. absent: Tenderness Assessment and Plan - Assessment and Plan (Free Text) Plan: Assessment consider severe sepsis and shock (more likely cardiogenic but may have septic component as well) with left lower lobe healthcare-associated pneumonia in this patient with acute hypoxic respiratory failure and severe pulmonary HTN requiring ventilator support with acute on chronic renal failure, currently undergoing dialysis; patient has multiorgan failure including shock liver, renal failure and respiratory failure - new onset fever and we are repeating septic work up history of sepsis due to right lower lobe healthcare-associated pneumonia stage3 IIIB non-small cell lung cancer S/P chemotherapy S/P port-a-cath placement COPD atrial fibrillation peripheral vascular disease S/P femoral stenting benign brain tumor S/P removal in 2013 seizure disorder pulmonary HTN CAD S/P PCI chronic CHF Plan on Merrem day 5 - because of increased liver enzymes, we will discontinue Doxycycline;will repeat blood, sputum, urine cx today and CXR since she developed fever of 104 F today - will give a dose of Daptomycin especially since she has a port-a-cath CT chest shows increased left lower lobe infiltrate - CT scan of the abdomen and pelvis is showing some infiltrates on the left lower lobe; PCT is only 0.28 but there is an infiltrate note will continue to monitor clinically, trend liver enzymes, WBC count (currently normal) discussed with Dr. Singh, Dr. Cervantes and Dr. Kenney Overall prognosis is poor
--- NOTE | 2017-03-10 10:36 | CP.PCM.PN ---
<Leah Morillo - Last Filed: 03/10/17 16:13> Subjective - Date & Time of Evaluation Date of Evaluation: 03/10/17 Time of Evaluation: 10:32 - Subjective Subjective: Neurology Progress Note for Luca Yoo PGY2 Patient seen and examined at bedside. There were no acute overnight events as per nursing. Patient is intubated and sedated on Precedex. Pt is not arousable at this time. ROS could not be obtained. Objective - Vital Signs/Intake and Output Vital Signs (last 24 hours): Temp Pulse Resp BP Pulse Ox 104 F H 97 H 22 112/62 85 L 03/10/17 06:27 03/10/17 08:45 03/09/17 00:00 03/10/17 08:45 03/10/17 08:45 Intake and Output: 03/10/17 03/10/17 06:59 18:59 Intake Total 2896 Output Total 500 Balance 2396 - Medications Medications: Current Medications Acetaminophen (Tylenol 650mg/20.3ml Solution Ud) 650 mg GT Q4H PRN PRN Reason: Fever >100.4 F Last Admin: 03/10/17 06:27 Dose: 650 mg Albuterol/Ipratropium (Duoneb 3 Mg/0.5 Mg (3 Ml) Ud) 3 ml IH Q2H PRN PRN Reason: Shortness of Breath Last Admin: 03/10/17 08:31 Dose: 3 ml Atenolol (Tenormin) 12.5 mg PO BID [facility] Last Admin: 03/08/17 09:33 Dose: Not Given Chlorhexidine Gluconate (Peridex) 15 ml PO Q4 [facility] Last Admin: 03/10/17 03:53 Dose: 1 applic Digoxin (Lanoxin) 0.125 mg PO MWF [facility] Last Admin: 03/07/17 09:43 Dose: 0.125 mg Heparin Sodium (Porcine) (Heparin) 5,000 units SC Q8 [facility] PRN Reason: Protocol Last Admin: 03/10/17 05:52 Dose: 5,000 units Hydrocortisone Sodium Succinate (Solu-Cortef) 100 mg IVP Q8 [facility] Last Admin: 03/10/17 05:53 Dose: 100 mg Levetiracetam (Keppra 500mg Ivpb) 500 mg in 100 mls @ 400 mls/hr IVPB Q12 [facility] Last Admin: 03/10/17 09:45 Dose: 400 mls/hr Dexmedetomidine HCl (Precedex 4 Mcg/Ml (100 Ml)) 400 mcg in 100 mls @ 4.468 mls /hr IV .[id number] PRN; Protocol; 0.2 MCG/KG/HR PRN Reason: Anxiety Last Admin: 03/10/17 07:08 Dose: 1.5 mcg/kg/hr, 33.509 mls/hr Vasopressin 20 units/ Dextrose 101 mls @ 9.09 mls/hr IV .Q11H7M [facility]; 0.03 U/MIN PRN Reason: Protocol Last Admin: 03/10/17 07:45 Dose: 9.09 mls/hr Norepinephrine Bitartrate 8 mg (/ Sodium Chloride) 258 mls @ 77.4 mls/hr IV .Q3H20M [facility]; 40 MCG/MIN PRN Reason: Protocol Last Admin: 03/10/17 08:28 Dose: 40 mcg/min, 77.4 mls/hr Meropenem 500 mg/ Sodium (Chloride) 100 mls @ 100 mls/hr IVPB Q12 [facility] PRN Reason: Protocol Stop: 03/15/17 12:16 Last Admin: 03/10/17 09:45 Dose: 100 mls/hr Dextrose (Dextrose 10% In Water) 500 mls @ 30 mls/hr IV .[id number] [facility] Last Admin: 03/08/17 18:55 Dose: 30 mls/hr Amiodarone HCl/Dextrose (Nexterone 360 Mg In D5w 200 Ml (Premix)) 360 mg in 200 mls @ 16.667 mls/hr IV .Q12H [facility]; 0.5 MG/MIN PRN Reason: Protocol Last Admin: 03/10/17 02:46 Dose: 16.667 mls/hr Lorazepam (Ativan) 2 mg IVP Q6H PRN; Protocol PRN Reason: Anxiety Last Admin: 03/09/17 01:53 Dose: 2 mg Ondansetron HCl (Zofran Inj) 4 mg IVP Q4H PRN PRN Reason: Nausea/Vomiting Pantoprazole Sodium (Protonix Inj) 40 mg IVP DAILY [facility] Last Admin: 03/10/17 09:45 Dose: 40 mg Phenytoin (Dilantin) 100 mg PO Q8 [facility] Last Admin: 03/10/17 05:52 Dose: 100 mg Tramadol HCl (Ultram) 50 mg PO TID PRN PRN Reason: Pain, severe (8-10) - Labs Labs: 03/10/17 06:00 03/10/17 06:00 PT 17.7 Seconds (9.9-11.8) H 03/10/17 06:00 INR 1.64 (0.93-1.08) H 03/10/17 06:00 APTT 34.7 Seconds (23.7-30.8) H 03/10/17 06:00 - Constitutional Appears: No Acute Distress - Head Exam Head Exam: ATRAUMATIC, NORMAL INSPECTION, NORMOCEPHALIC - Eye Exam Pupil Exam: Fixed (pinpoint) - ENT Exam ENT Exam: Mucous Membranes Moist - Respiratory Exam Respiratory Exam: Clear to Ausculation Bilateral, NORMAL BREATHING PATTERN. absent: Rales, Rhonchi, Wheezes - Cardiovascular Exam Cardiovascular Exam: REGULAR RHYTHM, +S1, +S2. absent: Gallop, Rubs, Murmur - GI/Abdominal Exam GI & Abdominal Exam: Soft, Normal Bowel Sounds. absent: Rigid, Tenderness, Mass , Rebound - Neurological Exam Additional comments: Pt intubated and sedated. Pinpoint pupils, difficult to arouse. 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 Seizures and AMS can be secondary to uremia and metabolic derangements. Patient also reports she didnt take her seizure medications for a couple days due to nausea from chemotherapy. EEG showed bilateral cerebral dysfunction without epileptiform activity. Patient has not had any further episodes of seizure. This am pupils are pinpoint and non-reactive which can be secondary to sedation versus intracranial pathology. Plan: - Will repeat head CT to rule out any new intracranial pathology - Continue Keppra IV, continue Dilantin - Seizure precaution, aspiration precaution - Ativen prn seizures - Maintain SBP in 120s for cerebral perfusion - Prognosis: guarded - palliative care consulted Case seen, discussed and reviewed with attending, Dr. Worthy. Luca Morillo PGY2 <Fausto Worthy - Last Filed: 03/10/17 16:29> Objective - Vital Signs/Intake and Output Vital Signs (last 24 hours): Temp Pulse Resp BP Pulse Ox 101 F H 98 H 32 H 114/72 77 L 03/10/17 15:44 03/10/17 15:29 03/10/17 08:31 03/10/17 15:30 03/10/17 11:15 Intake and Output: 03/10/17 03/10/17 06:59 18:59 Intake Total 2896 709.5 Output Total 500 Balance 2396 709.5 - Medications Medications: Current Medications Acetaminophen (Tylenol 650mg/20.3ml Solution Ud) 650 mg GT Q4H PRN PRN Reason: Fever >100.4 F Last Admin: 03/10/17 06:27 Dose: 650 mg Albuterol/Ipratropium (Duoneb 3 Mg/0.5 Mg (3 Ml) Ud) 3 ml IH Q2H PRN PRN Reason: Shortness of Breath Last Admin: 03/10/17 14:12 Dose: 3 ml Atenolol (Tenormin) 12.5 mg PO BID [facility] Last Admin: 03/08/17 09:33 Dose: Not Given Chlorhexidine Gluconate (Peridex) 15 ml PO Q4 [facility] Last Admin: 03/10/17 12:00 Dose: 1 applic Digoxin (Lanoxin) 0.125 mg PO MWF [facility] Last Admin: 03/07/17 09:43 Dose: 0.125 mg Heparin Sodium (Porcine) (Heparin) 5,000 units SC Q8 [facility] PRN Reason: Protocol Last Admin: 03/10/17 05:52 Dose: 5,000 units Hydrocortisone Sodium Succinate (Solu-Cortef) 100 mg IVP Q8 [facility] Last Admin: 03/10/17 14:47 Dose: 100 mg Levetiracetam (Keppra 500mg Ivpb) 500 mg in 100 mls @ 400 mls/hr IVPB Q12 [facility] Last Admin: 03/10/17 09:45 Dose: 400 mls/hr Dexmedetomidine HCl (Precedex 4 Mcg/Ml (100 Ml)) 400 mcg in 100 mls @ 4.468 mls /hr IV .[id number] PRN; Protocol; 0.2 MCG/KG/HR PRN Reason: Anxiety Last Admin: 03/10/17 14:41 Dose: 1.1 mcg/kg/hr, 24.573 mls/hr Norepinephrine Bitartrate 8 mg (/ Sodium Chloride) 258 mls @ 77.4 mls/hr IV .Q3H20M [facility]; 40 MCG/MIN PRN Reason: Protocol Last Titration: 03/10/17 16:03 Dose: 25 mcg/min, 48.37 mls/hr Meropenem 500 mg/ Sodium (Chloride) 100 mls @ 100 mls/hr IVPB Q12 [facility] PRN Reason: Protocol Stop: 03/15/17 12:16 Last Admin: 03/10/17 09:45 Dose: 100 mls/hr Dextrose (Dextrose 10% In Water) 500 mls @ 30 mls/hr IV .[id number] [facility] Last Admin: 03/08/17 18:55 Dose: 30 mls/hr Amiodarone HCl/Dextrose (Nexterone 360 Mg In D5w 200 Ml (Premix)) 360 mg in 200 mls @ 16.667 mls/hr IV .Q12H [facility]; 0.5 MG/MIN PRN Reason: Protocol Last Admin: 03/10/17 02:46 Dose: 16.667 mls/hr Vasopressin 20 units/ Dextrose 101 mls @ 12.12 mls/hr IV .Q8H20M [facility]; 0.04 U/ MIN PRN Reason: Protocol Lorazepam (Ativan) 2 mg IVP Q6H PRN; Protocol PRN Reason: Anxiety Last Admin: 03/09/17 01:53 Dose: 2 mg Ondansetron HCl (Zofran Inj) 4 mg IVP Q4H PRN PRN Reason: Nausea/Vomiting Pantoprazole Sodium (Protonix Inj) 40 mg IVP DAILY [facility] Last Admin: 03/10/17 09:45 Dose: 40 mg Phenytoin (Dilantin) 100 mg PO Q8 [facility] Last Admin: 03/10/17 14:47 Dose: 100 mg - Labs Labs: 03/10/17 06:00 03/10/17 06:00 PT 17.7 Seconds (9.9-11.8) H 03/10/17 06:00 INR 1.64 (0.93-1.08) H 03/10/17 06:00 APTT 34.7 Seconds (23.7-30.8) H 03/10/17 06:00 Attending/Attestation - Attestation I have personally seen and examined this patient.: Yes I have fully participated in the care of the patient.: Yes I have reviewed all pertinent clinical information, including history, physical exam and plan: Yes
[2017-03-10 10:51] LABS: VENOUS BLOOD GAS BASE EXCESS -6.1 mmol/L (0.0-2.0); VENOUS BLOOD PH 7.29 (7.32-7.43)
--- NOTE | 2017-03-10 10:53 | CP.PCM.CON ---
History of Present Illness - History of Present Illness History of Present Illness: Palliative consult requested by Dr Sandie Keith Reason: Goals of care 61 year old female with history of cardiomyopathy pulmonary hypertension and lung cancer who presented to the ED with weakness,seizures,decreased appetite. She was admitted to ICU with multiple organ failure and was subsequently intubated, dialyzed once. She is on vasopressors. PMHX: CAD s/p stent, CHF, cardiomyopathy, PAT,severe pulmonary hypertension, COPD, sleep apnea,HTN, stage IIIB SCL> last chemotherapy two weeks ago, brain mass s/p removal years ago,seizure disorder. Social History: Former smoker, no alcohol or drug use.Lived independently prior to this admission. Family History: Chronic lung disease,CAD and cancer. Advance Ce Planning: The patient did not have an Advanced Directive. Family requesting she be DNR. Review of Systems: as per HPI, she is intubated and sedated Past Patient History - Infectious Disease Hx of Infectious Diseases: None - Tetanus Immunizations Tetanus Immunization: Unknown - Past Medical History & Family History Past Medical History?: Yes - Past Social History Smoking Status: Former Smoker - CARDIAC Hx Cardiac Disorders: Yes (SVT) Hx Cardia Arrhythmia: Yes Hx Circulatory Problems: Yes Hx Congestive Heart Failure: Yes Hx Hypertension: Yes - PULMONARY Hx Respiratory Disorders: Yes (SMOKED CIGARETTES QUIT- < PPD) Hx Chronic Obstructive Pulmonary Disease (COPD): Yes Hx Emphysema: Yes Other/Comment: Left Lung CA - NEUROLOGICAL Hx Neurological Disorder: Yes Hx Dizziness: Yes - HEENT Hx HEENT Problems: Yes (eyeglasses) Hx Blind: No Hx Cataracts: No Hx Deafness: Yes (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 ear) Hx Epistaxis: No Hx Glaucoma: No Hx Macular Degeneration: No Other/Comment: ringing in ears - RENAL Hx Chronic Kidney Disease: No - ENDOCRINE/METABOLIC Hx Endocrine Disorders: No - HEMATOLOGICAL/ONCOLOGICAL Hx Blood Disorders: Yes Hx Anemia: Yes (blood transfusion) Hx Cancer: Yes (lung dx 04/2016) Hx Chemotherapy: Yes (LAST ON 03/04/17) Other/Comment: uterine ca over yrs ago. LAST HYDRATION ON 03/05/17 - INTEGUMENTARY Hx Dermatological Problems: No Hx Basil Cell: No Hx Eczema: No Hx Melanoma: No Hx Psoriasis: No Hx Squamous Cell: No Other/Comment: b/l leg edema - MUSCULOSKELETAL/RHEUMATOLOGICAL Hx Musculoskeletal Disorders: No Hx Falls: Yes - GASTROINTESTINAL Hx Gastrointestinal Disorders: Yes (reflux/pancreatitis) - GENITOURINARY/GYNECOLOGICAL Hx Genitourinary Disorders: Yes (cervical,uterine ca) Other/Comment: hx fibroids had hyst due to fibroids - PSYCHIATRIC Hx Psychophysiologic Disorder: Yes Hx Anxiety: Yes Hx Substance Use: No - SURGICAL HISTORY Hx Cholecystectomy: Yes Hx Coronary Stent: Yes Hx Hysterectomy: Yes Other/Comment: polypectomy,. R chest port - ANESTHESIA Hx Anesthesia: Yes Hx Anesthesia Reactions: No Hx Malignant Hyperthermia: No Meds Allergies/Adverse Reactions: Allergies Allergy/AdvReac Type Severity Reaction Status Date / Time diallo Allergy Mild RASH Verified 03/06/17 13:51 - Medications Medications: Current Medications Acetaminophen (Tylenol 650mg/20.3ml Solution Ud) 650 mg GT Q4H PRN PRN Reason: Fever >100.4 F Last Admin: 03/10/17 06:27 Dose: 650 mg Albuterol/Ipratropium (Duoneb 3 Mg/0.5 Mg (3 Ml) Ud) 3 ml IH Q2H PRN PRN Reason: Shortness of Breath Last Admin: 03/10/17 08:31 Dose: 3 ml Atenolol (Tenormin) 12.5 mg PO BID [facility] Last Admin: 03/08/17 09:33 Dose: Not Given Chlorhexidine Gluconate (Peridex) 15 ml PO Q4 [facility] Last Admin: 03/10/17 03:53 Dose: 1 applic Digoxin (Lanoxin) 0.125 mg PO MWF [facility] Last Admin: 03/07/17 09:43 Dose: 0.125 mg Heparin Sodium (Porcine) (Heparin) 5,000 units SC Q8 [facility] PRN Reason: Protocol Last Admin: 03/10/17 05:52 Dose: 5,000 units Hydrocortisone Sodium Succinate (Solu-Cortef) 100 mg IVP Q8 [facility] Last Admin: 03/10/17 05:53 Dose: 100 mg Levetiracetam (Keppra 500mg Ivpb) 500 mg in 100 mls @ 400 mls/hr IVPB Q12 [facility] Last Admin: 03/10/17 09:45 Dose: 400 mls/hr Dexmedetomidine HCl (Precedex 4 Mcg/Ml (100 Ml)) 400 mcg in 100 mls @ 4.468 mls /hr IV .[id number] PRN; Protocol; 0.2 MCG/KG/HR PRN Reason: Anxiety Last Admin: 03/10/17 10:41 Dose: 1.3 mcg/kg/hr, 29.041 mls/hr Vasopressin 20 units/ Dextrose 101 mls @ 9.09 mls/hr IV .[id number] DANICA; 0.03 U/MIN PRN Reason: Protocol Last Admin: 03/10/17 07:45 Dose: 9.09 mls/hr Norepinephrine Bitartrate 8 mg (/ Sodium Chloride) 258 mls @ 77.4 mls/hr IV .Q3H20M DANICA; 40 MCG/MIN PRN Reason: Protocol Last Admin: 03/10/17 08:28 Dose: 40 mcg/min, 77.4 mls/hr Meropenem 500 mg/ Sodium (Chloride) 100 mls @ 100 mls/hr IVPB Q12 [facility] PRN Reason: Protocol Stop: 03/15/17 12:16 Last Admin: 03/10/17 09:45 Dose: 100 mls/hr Dextrose (Dextrose 10% In Water) 500 mls @ 30 mls/hr IV .[id number] [facility] Last Admin: 03/08/17 18:55 Dose: 30 mls/hr Amiodarone HCl/Dextrose (Nexterone 360 Mg In D5w 200 Ml (Premix)) 360 mg in 200 mls @ 16.667 mls/hr IV .Q12H DANICA; 0.5 MG/MIN PRN Reason: Protocol Last Admin: 03/10/17 02:46 Dose: 16.667 mls/hr Lorazepam (Ativan) 2 mg IVP Q6H PRN; Protocol PRN Reason: Anxiety Last Admin: 03/09/17 01:53 Dose: 2 mg Ondansetron HCl (Zofran Inj) 4 mg IVP Q4H PRN PRN Reason: Nausea/Vomiting Pantoprazole Sodium (Protonix Inj) 40 mg IVP DAILY [facility] Last Admin: 03/10/17 09:45 Dose: 40 mg Phenytoin (Dilantin) 100 mg PO Q8 [facility] Last Admin: 03/10/17 05:52 Dose: 100 mg Physical Exam - Constitutional Appears: Chronically Ill - Head Exam Head Exam: NORMOCEPHALIC - Eye Exam Eye Exam: Normal appearance, PERRL - ENT Exam ENT Exam: Mucous Membranes Moist - Respiratory Exam Respiratory Exam: Decreased Breath Sounds, Rhonchi - Cardiovascular Exam Cardiovascular Exam: Irregular Rhythm, +S1, +S2 - GI/Abdominal Exam GI & Abdominal Exam: Diminished Bowel Sounds, Soft - Exam Additional comments: ologuria - Extremities Exam Extremities exam: Positive for: pedal pulses present Additional comments: edematous - Back Exam Back exam: NORMAL INSPECTION - Skin Skin Exam: Dry, Pallor Additional comments: febrile - Additional Findings Additional findings: Palliative performance scale rating 10% Results - Vital Signs Recent Vital Signs: Last Vital Signs Temp 104 F H 03/10/17 06:27 Pulse 97 H 03/10/17 08:45 Resp 22 03/09/17 00:00 BP 112/62 03/10/17 08:45 Pulse Ox 85 L 03/10/17 08:45 - Labs Result Diagrams: 03/10/17 06:00 03/10/17 06:00 Labs: Laboratory Results - last 24 hr 03/07/17 03/07/17 03/09/17 20:12 20:12 07:49 WBC RBC Hgb Hct MCV MCH MCHC RDW Plt Count Gran % Lymph % (Auto) [place] % (Auto) Eos % (Auto) Baso % (Auto) Gran # Lymph # [place] # Eos # Baso # PT INR APTT pCO2 pO2 HCO3 ABG pH ABG Total CO2 ABG O2 Saturation ABG O2 Content ABG Base Excess ABG Hemoglobin ABG Carboxyhemoglobin POC ABG HHb (Measured) ABG Methemoglobin ABG O2 Capacity Hgb O2 Saturation FiO2 Sodium Potassium Chloride Carbon Dioxide Anion Gap BUN Creatinine Est GFR ( Amer) Est GFR (Non-Af Amer) POC Glucose (mg/dL) 224 H Random Glucose Calcium Phosphorus Magnesium Ferritin 66.0 Total Bilirubin AST ALT Alkaline Phosphatase Total Creatine Kinase Total Protein Albumin Globulin Albumin/Globulin Ratio Digoxin Hep Bs Antigen Negative Hep Bs Antibody Positive Hep B Core IgM Ab Negative Hepatitis C Antibody Negative 03/09/17 03/09/17 03/09/17 09:08 11:39 16:13 WBC RBC Hgb Hct MCV MCH MCHC RDW Plt Count Gran % Lymph % (Auto) [place] % (Auto) Eos % (Auto) Baso % (Auto) Gran # Lymph # [place] # Eos # Baso # PT INR APTT pCO2 pO2 HCO3 ABG pH ABG Total CO2 ABG O2 Saturation ABG O2 Content ABG Base Excess ABG Hemoglobin ABG Carboxyhemoglobin POC ABG HHb (Measured) ABG Methemoglobin ABG O2 Capacity Hgb O2 Saturation FiO2 Sodium Potassium Chloride Carbon Dioxide Anion Gap BUN Creatinine Est GFR ( Amer) Est GFR (Non-Af Amer) POC Glucose (mg/dL) 225 H 195 H 176 H Random Glucose Calcium Phosphorus Magnesium Ferritin Total Bilirubin AST ALT Alkaline Phosphatase Total Creatine Kinase Total Protein Albumin Globulin Albumin/Globulin Ratio Digoxin Hep Bs Antigen Hep Bs Antibody Hep B Core IgM Ab Hepatitis C Antibody 03/09/17 03/10/17 03/10/17 19:56 00:20 05:15 WBC RBC Hgb Hct MCV MCH MCHC RDW Plt Count Gran % Lymph % (Auto) [place] % (Auto) Eos % (Auto) Baso % (Auto) Gran # Lymph # [place] # Eos # Baso # PT INR APTT pCO2 28 L pO2 102.0 H HCO3 18.2 L ABG pH 7.42 ABG Total CO2 19.1 L ABG O2 Saturation 99.1 H ABG O2 Content 14.6 L ABG Base Excess -5.2 L ABG Hemoglobin 10.7 L ABG Carboxyhemoglobin 2.1 H POC ABG HHb (Measured) 0.9 ABG Methemoglobin 0.9 ABG O2 Capacity 14.7 L Hgb O2 Saturation 96.1 FiO2 50.0 Sodium Potassium Chloride Carbon Dioxide Anion Gap BUN Creatinine Est GFR ( Amer) Est GFR (Non-Af Amer) POC Glucose (mg/dL) 158 H 165 H Random Glucose Calcium Phosphorus Magnesium Ferritin Total Bilirubin AST ALT Alkaline Phosphatase Total Creatine Kinase Total Protein Albumin Globulin Albumin/Globulin Ratio Digoxin Hep Bs Antigen Hep Bs Antibody Hep B Core IgM Ab Hepatitis C Antibody 03/10/17 03/10/17 03/10/17 06:00 06:00 06:00 WBC 7.5 D RBC 3.96 Hgb 10.6 L Hct 32.3 L MCV 81.6 MCH 26.8 MCHC 32.8 RDW 17.3 H Plt Count 52 L Gran % 96.5 H Lymph % (Auto) 3.1 L [place] % (Auto) 0.4 L Eos % (Auto) 0.0 L Baso % (Auto) 0.0 Gran # 7.28 H Lymph # 0.2 L [place] # 0.0 L Eos # 0.0 Baso # 0.00 PT INR APTT pCO2 pO2 HCO3 ABG pH ABG Total CO2 ABG O2 Saturation ABG O2 Content ABG Base Excess ABG Hemoglobin ABG Carboxyhemoglobin POC ABG HHb (Measured) ABG Methemoglobin ABG O2 Capacity Hgb O2 Saturation FiO2 Sodium 136 Potassium 5.1 H Chloride 103 Carbon Dioxide 21 Anion Gap 17 BUN 54 H Creatinine 3.0 H Est GFR ( Amer) 19 Est GFR (Non-Af Amer) 16 POC Glucose (mg/dL) Random Glucose 140 H Calcium 7.5 L Phosphorus 5.4 H Magnesium 1.9 Ferritin Total Bilirubin 2.2 H AST 1001 H ALT 1490 H Alkaline Phosphatase 129 H Total Creatine Kinase Total Protein 4.8 L Albumin 2.8 L Globulin 1.9 Albumin/Globulin Ratio 1.5 Digoxin 0.8 Hep Bs Antigen Hep Bs Antibody Hep B Core IgM Ab Hepatitis C Antibody 03/10/17 03/10/17 06:00 07:35 WBC RBC Hgb Hct MCV MCH MCHC RDW Plt Count Gran % Lymph % (Auto) [place] % (Auto) Eos % (Auto) Baso % (Auto) Gran # Lymph # [place] # Eos # Baso # PT 17.7 H INR 1.64 H APTT 34.7 H pCO2 pO2 HCO3 ABG pH ABG Total CO2 ABG O2 Saturation ABG O2 Content ABG Base Excess ABG Hemoglobin ABG Carboxyhemoglobin POC ABG HHb (Measured) ABG Methemoglobin ABG O2 Capacity Hgb O2 Saturation FiO2 Sodium Potassium Chloride Carbon Dioxide Anion Gap BUN Creatinine Est GFR ( Amer) Est GFR (Non-Af Amer) POC Glucose (mg/dL) Random Glucose Calcium Phosphorus Magnesium Ferritin Total Bilirubin AST ALT Alkaline Phosphatase Total Creatine Kinase 209 Total Protein Albumin Globulin Albumin/Globulin Ratio Digoxin Hep Bs Antigen Hep Bs Antibody Hep B Core IgM Ab Hepatitis C Antibody Assessment & Plan - Assessment and Plan (Free Text) Assessment: 61 year old female with history of severe cardiomyopathy, pulmonary hypertension Stage IIB Small Celll lung cancer and multiple comorbidities(see PMH) who was admitted to the ICU with multiple organ failure. She remains intubated on vasopressor support. She was dialyzed once, remains oliguric. Patients son at bedside.Son is aware of mothers multiple medical problems and the severity of her current illness. Family has made patient DNR. Son states that his mother expressed that she did not want to be kept alive on "machines" . I explained that if his mother pulls through current medical crisis it is highly unlikely that she will return to previous functional status. Options for comfort care also explained. I later met with patients daughter Miley and had the same discussion as with her her brother. Family is very appreciative of palliative support. Family likely to wait through the next 24 hours to see if patient shows signs of improvement, but will consider all options for future care planning. Spiritual support declined at this time. Time spent with family in goals of care discussion, 40 minutes. Plan: Palliative support, will assist family in establishing goals of care
--- NOTE | 2017-03-10 11:06 | CP.PCM.PN ---
Subjective - Date & Time of Evaluation Date of Evaluation: 03/10/17 Time of Evaluation: 11:03 - Subjective Subjective: 61 yo F w/ COPD, severe pulm htn, aifb, stage IIIB small cell lung CA, admitted with acute renal failure and shock; Patient still severely tachycardic even after dobutamine dose decreased, was therefore stopped; put on amiodarone; Objective - Vital Signs/Intake and Output Vital Signs (last 24 hours): Temp Pulse Resp BP Pulse Ox 104 F H 97 H 22 112/62 85 L 03/10/17 06:27 03/10/17 08:45 03/09/17 00:00 03/10/17 08:45 03/10/17 08:45 Intake and Output: 03/10/17 03/10/17 06:59 18:59 Intake Total 2896 100 Output Total 500 Balance 2396 100 - Medications Medications: Current Medications Acetaminophen (Tylenol 650mg/20.3ml Solution Ud) 650 mg GT Q4H PRN PRN Reason: Fever >100.4 F Last Admin: 03/10/17 06:27 Dose: 650 mg Albuterol/Ipratropium (Duoneb 3 Mg/0.5 Mg (3 Ml) Ud) 3 ml IH Q2H PRN PRN Reason: Shortness of Breath Last Admin: 03/10/17 08:31 Dose: 3 ml Atenolol (Tenormin) 12.5 mg PO BID [facility] Last Admin: 03/08/17 09:33 Dose: Not Given Chlorhexidine Gluconate (Peridex) 15 ml PO Q4 [facility] Last Admin: 03/10/17 03:53 Dose: 1 applic Digoxin (Lanoxin) 0.125 mg PO MWF [facility] Last Admin: 03/07/17 09:43 Dose: 0.125 mg Heparin Sodium (Porcine) (Heparin) 5,000 units SC Q8 [facility] PRN Reason: Protocol Last Admin: 03/10/17 05:52 Dose: 5,000 units Hydrocortisone Sodium Succinate (Solu-Cortef) 100 mg IVP Q8 [facility] Last Admin: 03/10/17 05:53 Dose: 100 mg Levetiracetam (Keppra 500mg Ivpb) 500 mg in 100 mls @ 400 mls/hr IVPB Q12 [facility] Last Admin: 03/10/17 09:45 Dose: 400 mls/hr Dexmedetomidine HCl (Precedex 4 Mcg/Ml (100 Ml)) 400 mcg in 100 mls @ 4.468 mls /hr IV .[id number] PRN; Protocol; 0.2 MCG/KG/HR PRN Reason: Anxiety Last Admin: 03/10/17 10:41 Dose: 1.3 mcg/kg/hr, 29.041 mls/hr Vasopressin 20 units/ Dextrose 101 mls @ 9.09 mls/hr IV .[id number] [facility]ANICA; 0.03 U/MIN PRN Reason: Protocol Last Admin: 03/10/17 07:45 Dose: 9.09 mls/hr Norepinephrine Bitartrate 8 mg (/ Sodium Chloride) 258 mls @ 77.4 mls/hr IV .Q3H20M [facility]ICA; 40 MCG/MIN PRN Reason: Protocol Last Admin: 03/10/17 08:28 Dose: 40 mcg/min, 77.4 mls/hr Meropenem 500 mg/ Sodium (Chloride) 100 mls @ 100 mls/hr IVPB Q12 [facility] PRN Reason: Protocol Stop: 03/15/17 12:16 Last Admin: 03/10/17 09:45 Dose: 100 mls/hr Dextrose (Dextrose 10% In Water) 500 mls @ 30 mls/hr IV .[id number] [facility] Last Admin: 03/08/17 18:55 Dose: 30 mls/hr Amiodarone HCl/Dextrose (Nexterone 360 Mg In D5w 200 Ml (Premix)) 360 mg in 200 mls @ 16.667 mls/hr IV .Q12H [facility]ANICA; 0.5 MG/MIN PRN Reason: Protocol Last Admin: 03/10/17 02:46 Dose: 16.667 mls/hr Lorazepam (Ativan) 2 mg IVP Q6H PRN; Protocol PRN Reason: Anxiety Last Admin: 03/09/17 01:53 Dose: 2 mg Ondansetron HCl (Zofran Inj) 4 mg IVP Q4H PRN PRN Reason: Nausea/Vomiting Pantoprazole Sodium (Protonix Inj) 40 mg IVP DAILY [facility] Last Admin: 03/10/17 09:45 Dose: 40 mg Phenytoin (Dilantin) 100 mg PO Q8 [facility] Last Admin: 03/10/17 05:52 Dose: 100 mg - Labs Labs: 03/10/17 06:00 03/10/17 06:00 PT 17.7 Seconds (9.9-11.8) H 03/10/17 06:00 INR 1.64 (0.93-1.08) H 03/10/17 06:00 APTT 34.7 Seconds (23.7-30.8) H 03/10/17 06:00 - Constitutional Appears: No Acute Distress - Eye Exam Additional comments: [place] pupils; - ENT Exam ENT Exam: Mucous Membranes Moist - Respiratory Exam Respiratory Exam: Clear to Ausculation Bilateral. absent: Rales - Cardiovascular Exam Cardiovascular Exam: REGULAR RHYTHM, +S1, +S2 - GI/Abdominal Exam GI & Abdominal Exam: Soft. absent: Distended - Extremities Exam Additional comments: minimal/no leg edema; - Neurological Exam Additional comments: sedated; - Skin Additional comments: distal ext again cool, mildly cyanotic; Assessment and Plan (1) Acute renal failure (ARF) Assessment & Plan: ATN s/p chemo w/ pemetrexed; oliguria changed to non-oliguria after initiation of inotropic agent, now stopped due to tachycardia; question about whether patient is intravascularly volume depleted as still borderline hypotension on A- line readings (although baseline SBP in 80-90's); -agree with trial of IVF (getting 500 cc NS bolus) -HD today for clearance (K borderline high), not for UF; Status: Acute (2) Shock Assessment & Plan: Cardogenic etiology with severe lactic acidosis and cool ext that resolved ( anion gap normalized) with inotropic support; now that inotrope off, distal ext again cool; getting trial of IVF; -if lactic acidosis recurs, will need to consider restarting inotrope -on meropenem for empiric abx coverage, need to redose after HD -trend lactate level Status: Acute (3) Lactic acidosis Assessment & Plan: Resolved but see above; if lactate increasing, will increase HCO3 in dialysate; Status: Acute (4) Pulmonary HTN Assessment & Plan: With RV overload causing cardiorenal component of JUSTINA; attempting trial of volume repletion as above; Status: Acute (5) Hyperkalemia Status: Acute (6) Electrolyte disturbance Assessment & Plan: Mild hypocalcemia, will correct with HD; Status: Acute
--- NOTE | 2017-03-10 11:27 | PQF SEPSIS ---
This form is a permanent part of the medical record Dr. Keith, Patient was admitted with multiple problems. Your H7P noted r/o sepsis as a diagnosis. Please document specifically if sepsis was present on admission. Clarification of your documentation is requested to better reflect the severity of illness and intensity of treatment of your patient. Indicators present [] Temp < 96.8 or > 100.4 [] WBC count > 12,000/mm3 or <000/mm3 or 10% immature neutrophils [] Heart Rate > 90 [] Respiratory Rate > 20 [] Fever or hypothermia [] Chills [] Positive blood cultures [] Hypotension [] Metabolic acidosis (Elevated lactate level, anion gap or reduced blood pH) [] Acute confusion /Altered Mental Status [] Shock [] Other: [] Location in the medical record that reflects the above clinical findings: [] Treatment Provided: [] PHYSICIAN'S RESPONSE Based on your medical judgment of the clinical indicators outlined above, are you treating this patient for a known or suspected: [] Sepsis / Septicemia Please specify organism if known [] [] SIRS (Systemic Inflammatory Response Syndrome) [] Severe Sepsis (Sepsis with Associated Organ Dysfunction) [] Fever of Unknown Origin [] Other, please indicate: [] [] If Unable to Determine, please check the box, sign and date. Present On Admission (POA) Indicator: [] Present at the time of admission [] Not present at the time of admission [] Clinically Undetermined In responding to this query, please exercise your independent professional judgment. The fact that a question is asked does not imply that any particular answer is desired or expected. Thank you for your clarification on this documentation. If you have any questions please call:[ ] * Thank you, [ ]Rose Watson [facility], #[id number] [employer] dog CHRISTIANO
[2017-03-10] MEDS ORDERED: Sodium Chloride 0.9% 500 ML IV STA (12:10)
--- NOTE | 2017-03-10 13:46 | CP.PCM.PN ---
Subjective - Date & Time of Evaluation Date of Evaluation: 03/10/17 Time of Evaluation: 07:20 - Subjective Subjective: PAtient seen and examined, remains intubated, on vasopressor support. s/p HD yesterday, with net negative 600cc. Objective - Vital Signs/Intake and Output Vital Signs (last 24 hours): Temp Pulse Resp BP Pulse Ox 104 F H 97 H 22 114/75 77 L 03/10/17 06:27 03/10/17 11:29 03/09/17 00:00 03/10/17 11:30 03/10/17 11:15 Intake and Output: 03/10/17 03/10/17 06:59 18:59 Intake Total 2896 358 Output Total 500 Balance 2396 358 - Medications Medications: Current Medications Acetaminophen (Tylenol 650mg/20.3ml Solution Ud) 650 mg GT Q4H PRN PRN Reason: Fever >100.4 F Last Admin: 03/10/17 06:27 Dose: 650 mg Albuterol/Ipratropium (Duoneb 3 Mg/0.5 Mg (3 Ml) Ud) 3 ml IH Q2H PRN PRN Reason: Shortness of Breath Last Admin: 03/10/17 08:31 Dose: 3 ml Atenolol (Tenormin) 12.5 mg PO BID [facility] Last Admin: 03/08/17 09:33 Dose: Not Given Chlorhexidine Gluconate (Peridex) 15 ml PO Q4 [facility] Last Admin: 03/10/17 08:00 Dose: 1 applic Digoxin (Lanoxin) 0.125 mg PO MWF [facility] Last Admin: 03/07/17 09:43 Dose: 0.125 mg Heparin Sodium (Porcine) (Heparin) 5,000 units SC Q8 [facility] PRN Reason: Protocol Last Admin: 03/10/17 05:52 Dose: 5,000 units Hydrocortisone Sodium Succinate (Solu-Cortef) 100 mg IVP Q8 [facility] Last Admin: 03/10/17 05:53 Dose: 100 mg Levetiracetam (Keppra 500mg Ivpb) 500 mg in 100 mls @ 400 mls/hr IVPB Q12 [facility] Last Admin: 03/10/17 09:45 Dose: 400 mls/hr Dexmedetomidine HCl (Precedex 4 Mcg/Ml (100 Ml)) 400 mcg in 100 mls @ 4.468 mls /hr IV .[id number] PRN; Protocol; 0.2 MCG/KG/HR PRN Reason: Anxiety Last Admin: 03/10/17 10:41 Dose: 1.3 mcg/kg/hr, 29.041 mls/hr Norepinephrine Bitartrate 8 mg (/ Sodium Chloride) 258 mls @ 77.4 mls/hr IV .Q3H20M [facility]ANICA; 40 MCG/MIN PRN Reason: Protocol Last Admin: 03/10/17 12:37 Dose: 40 mcg/min, 77.4 mls/hr Meropenem 500 mg/ Sodium (Chloride) 100 mls @ 100 mls/hr IVPB Q12 [facility] PRN Reason: Protocol Stop: 03/15/17 12:16 Last Admin: 03/10/17 09:45 Dose: 100 mls/hr Dextrose (Dextrose 10% In Water) 500 mls @ 30 mls/hr IV .[id number] [facility] Last Admin: 03/08/17 18:55 Dose: 30 mls/hr Amiodarone HCl/Dextrose (Nexterone 360 Mg In D5w 200 Ml (Premix)) 360 mg in 200 mls @ 16.667 mls/hr IV .Q12H [facility]ANICA; 0.5 MG/MIN PRN Reason: Protocol Last Admin: 03/10/17 02:46 Dose: 16.667 mls/hr Vasopressin 20 units/ Dextrose 101 mls @ 12.12 mls/hr IV .Q8H20M [facility]ANICA; 0.04 U/ MIN PRN Reason: Protocol Lorazepam (Ativan) 2 mg IVP Q6H PRN; Protocol PRN Reason: Anxiety Last Admin: 03/09/17 01:53 Dose: 2 mg Ondansetron HCl (Zofran Inj) 4 mg IVP Q4H PRN PRN Reason: Nausea/Vomiting Pantoprazole Sodium (Protonix Inj) 40 mg IVP DAILY [facility] Last Admin: 03/10/17 09:45 Dose: 40 mg Phenytoin (Dilantin) 100 mg PO Q8 [facility] Last Admin: 03/10/17 05:52 Dose: 100 mg - Labs Labs: 03/10/17 06:00 03/10/17 06:00 PT 17.7 Seconds (9.9-11.8) H 03/10/17 06:00 INR 1.64 (0.93-1.08) H 03/10/17 06:00 APTT 34.7 Seconds (23.7-30.8) H 03/10/17 06:00 - Constitutional Appears: No Acute Distress - Eye Exam Pupil Exam: Miosis - ENT Exam ENT Exam: Mucous Membranes Moist - Neck Exam Neck Exam: Normal Inspection - Respiratory Exam Respiratory Exam: Clear to Ausculation Bilateral, NORMAL BREATHING PATTERN - Cardiovascular Exam Cardiovascular Exam: REGULAR RHYTHM, RRR, +S1, +S2 - GI/Abdominal Exam GI & Abdominal Exam: Soft, Normal Bowel Sounds - Extremities Exam Additional comments: cold Assessment and Plan - Assessment and Plan (Free Text) Assessment: 61yo female with Os[place]8C small cell lung Ca, on chemo, CAD, Afib, COPd on home o2, PAD, HTN, Cardiomyopathy, benign brain tumor s/p resection with septic and cardiogenic shock, PNA Hx of Small Cell Ca of Lung Afib COPD on home O2 HTN Pulm HTN HCAP Septic Shock Multiorgan failure Seizure Disorder CHF Resp failure Elevated LFTs - currently remains intubated, sedated, on vasopresor support - Levophed 40mcg/min, requirements coming down, on vasopressin 0.03u - On stress dose steroids - UOP minimal - Prognosis remains poor - platelets have dropped>50% - Shock liver Recommend: - cont with ventilatory support, low tidal volume ventilation - Daily Abgs, CXR - HCAP, treated with broad spectrum abx - follow up ID - follow up culture - cont with Levophed, and Vasopressin, goal MAP 65 - would give back 500cc NS bolus x 1 - follow up nephro, HD today - stop HSQ, platelets have dropped >50%, check HIT panel, follow heme/onc - resume feeds - monitor electrolytes - FS control goal FS 140-180 - monitor LFTs - patient remains critical, prognosis is very poor critical care time 45 minutes
[2017-03-10 14:33] LABS: VENOUS BLOOD GAS BASE EXCESS -8.3 mmol/L (0.0-2.0); VENOUS BLOOD PH 7.26 (7.32-7.43)
[2017-03-10 14:57] LABS: PH,URINE 5.5 (4.7-8.0); URINE BILIRUBIN SMALL (NEGATIVE); URINE BLOOD LARGE (NEGATIVE); URINE GLUCOSE (UA) NEGATIVE (NEGATIVE); URINE KETONE NEGATIVE (NEGATIVE); URINE LEUKOCYTE ESTERASE NEGATIVE Leu/uL (NEGATIVE); URINE PROTEIN 100 mg/dL (<30 mg/dL); URINE UROBILINOGEN 0.2 E.U./dL (<1 E.U./dL)
[2017-03-10 14:58] LABS: URINE APPEARANCE TURBID (CLEAR); URINE COLOR YELLOW (YELLOW)
[2017-03-10 15:00] LABS: URINE RBC 25 - 30 /hpf (0-2)
[2017-03-10 15:01] LABS: URINE BACTERIA FEW (NEG); URINE WBC 0 - 2 /hpf (0-6)
--- NOTE | 2017-03-10 17:23 | PN ---
DATE: REASON FOR CONSULTATION: Followup cardiac evaluation status post respiratory failure, hypotension, possible septic shock. SUBJECTIVE: The patient on vent, multiple vasopressors and multiple drips including amiodarone. OBJECTIVE: GENERAL: The patient on vent. VITAL SIGNS: Temperature afebrile, heart rate is 97, blood pressure 114/75. HEENT: PERRLA. Extraocular muscles intact. NECK: Supple. No carotid bruits. No thyromegaly. CHEST: Clear to auscultation. HEART: S1 and S2 regular. ABDOMEN: Soft. EXTREMITIES: Clubbing and cyanosis negative. LABORATORY DATA: WBC 7.5, hemoglobin 10.7, hematocrit 32.3, platelet count 52. Chemistry shows sodium 130, potassium 5.0, chloride 103, carbon dioxide of 21, anion gap of 17, BUN 54, creatinine 3. AST 1000, ALT 1492. IMPRESSION: Status post respiratory failure, multiorgan dysfunction, possible tumor lysis syndrome, hyperkalemia status post dialysis, lung cancer status post chemotherapy, sepsis, severe pulmonary hypertension, severe right ventricular failure, liver failure, inoperable lung cancer, proximal atrial fibrillation, acute kidney injury. RECOMMENDATION: Continue supportive care. Continue vasopressors. Continue IV amiodarone. Continue broad spectrum antibiotics. I discussed with Dr. Keith. Continue IV amiodarone. Overall, the patient continues to be critical. Long-term prognosis is guarded. Continue broad spectrum antibiotics. The patient is on Levophed and continue digoxin Friday, Friday and Friday. Continue supportive care. Continue vent management. Overall, the patient's condition critical. Long-term prognosis guarded. The patient was be very careful because the patient had liver injury. Monitor kidney function very closely. Serenity Maguire MD
[2017-03-10] MEDS ORDERED: DOBUTamine 500mg/250ml D5W 500 MG/250 ML BAG IV PRN (18:18)
[2017-03-10 19:04] LABS: VENOUS BLOOD GAS BASE EXCESS -5.5 mmol/L (0.0-2.0); VENOUS BLOOD PH 7.23 (7.32-7.43)
[2017-03-10 22:35] LABS: VENOUS BLOOD GAS BASE EXCESS -7.2 mmol/L (0.0-2.0); VENOUS BLOOD PH 7.26 (7.32-7.43)
[2017-03-11] MEDS: Chlorhexidine 0.12% Oral Sol 480 ml Bot PO SCH ×7 (00:29→21:47)
--- NOTE | 2017-03-11 00:43 | PN ---
PULMONARY CRITICAL CARE PROGRESS NOTE DATE: 03/10/2017 REFERRING PHYSICIAN: Dr. Singh. SUBJECTIVE: She is intubated and sedated. Earlier today, dobutamine was stopped and also amiodarone was stopped. Overall, from the last 24 hour the patient has done well. Able to get rid of lactic acid. Improved kidney function. Improved blood pressure. Not much ET tube secretion. No hemoptysis, no hematemesis, no hematuria, and no diarrhea reported. OBJECTIVE: GENERAL: On ventilator and sedated. VITAL SIGNS: Temp is 99, heart rate is 84, respiratory rate is 20, blood pressure was 129/87 with pulse ox 97%, 50% oxygen on ventilator. HEENT: Moist mucous membrane. ET tube, no secretion. NECK: Supple. No JVD. LUNGS: Has crackles at bases. Scattered rhonchi. Prolonged expiratory phase. HEART: S1 and S2. ABDOMEN: Positive bowel sound, nondistended. EXTREMITIES: There is no edema. NEUROLOGIC: Intubated and sedated. MEDICATIONS: She is on Ativan 2 mg q. 6 hours p.r.n., IV fluid D10 at 30 mL per hour, Dilantin 100 mg q. 8 hours, albuterol Atrovent nebulizer q. 2 hour p.r.n., heparin 5000 units subcu q. 8 hours, Keppra 500 mg IV q. 12 hours, digoxin 0.125 mg Friday, Friday, and Friday, meropenem 500 mg q. 12 hours. Also on Levophed, Precedex 15 mL q. 4 hours, Precedex IV, Protonix 40 mg daily, Solu-Cortef 100 mg q. 8 hours, Tenormin 12.5 mg twice a day, Tylenol p.r.n., vasopressin IV, Zofran p.r.n. basis. LABORATORY DATA: Shows hemoglobin 10.6, hematocrit 32.3, WBC 7.5, platelet is 52, fibrinogen degradation product greater than 40, fibrinogen 257, INR 1.64, PTT 35. Blood gas shows pH 7.42, pCO2 28, O2 102. This is on 50% oxygen on a ventilator. Sodium 136, potassium 5.1, chloride 103, bicarbonate 21, BUN 54, creatinine 3.0, glucose 162, calcium is 7.5, phosphorus 5.4, magnesium 1.9, AST 1001, ALT 1490, alkaline phosphatase is 129, albumin is 2.8, procalcitonin is 5.58. Microbiology, blood culture, sputum culture has no growth. Chest x-ray done this morning shows endotracheal tube terminates 4 cm above the douglas, persistent cardiomegaly, mild pulmonary venous congestion. IMPRESSION AND PLAN: Multiorgan failure, severe pulmonary hypertension, cardiomyopathy, valvular heart disease, severe obstructive lung disease, unresectable lung cancer, been on chemo and radiation therapy, sleep apnea syndrome, renal failure, being dialyzed, paroxysmal atrial fibrillation. Case discussed with Nephrology. Also spoke to application development liaison. Spoke to the patient family bedside. All the questions answered. After discussion decision was make to place the patient on low dose of dobutamine 2.5 mcg/kg per minute. Restart small dose of gingerly IV fluid. I will suggest start amiodarone with 0.5 mg to keep the heart rate below 100. Slowly hopefully we can get it off Levophed by tomorrow. We will have a better organ perfusion if we got Levophed little further down. Follow up ABG, chest x-ray, CBC, CMP in the morning. Thank you and we will follow with you. Serenity Martinez MD
--- NOTE | 2017-03-11 01:03 | PN ---
DATE: SUBJECTIVE: The patient remains in intensive care unit. The patient is intubated and sedated and the new development since this morning is fever, she developed earlier this morning. PHYSICAL EXAMINATION: GENERAL: The patient is sedated. VITAL SIGNS: Temperature 100.4, blood pressure 103/65 and pulse 100, regular. HEENT: Head is normocephalic and atraumatic. NECK: Supple. LUNGS: With decreased breath sounds, scattered rhonchi. No rales. HEART: With regular rate, rate of 100 per minute. ABDOMEN: Soft and nondistended. EXTREMITIES: With no edema. DIAGNOSTIC TEST: CBC significant for decreased platelet count of 52 this morning, WBC is stable 7.5, hemoglobin is 10.6. Chemistry with higher potassium 5.1, sodium normal 136, BUN is 54, creatinine is 3, which is similar to yesterday. Her liver enzymes are stabilized and trending down. Procalcitonin today is high 5.58. ASSESSMENT: 1. Cardiogenic shock with severe hypotension, stable with vasopressors. 2. Supraventricular tachycardia with improved heart rate, on amiodarone IV. 3. Fever, possibly pneumonia and sepsis presently on wide spectrum antibiotics Merrem and doxycycline. 4. Acute renal failure, slightly improved with improved urine output, but persistently elevated BUN and creatinine. 5. Respiratory failure with bilateral pneumonia. 6. Thrombocytopenia. PLAN OF TREATMENT: Case was discussed with Ruchi Linn. We will talk to the family members regarding the patient's condition and status. Currently, the patient is DNR. We will continue vasopressors. Review note of Battery Tester who recommended a trial of IV fluids. We will continue broad-spectrum antibiotics, repeated cultures. The patient is due for hemodialysis today. The patient's condition is very poor. Keira Keith MD
[2017-03-11] MEDS: Vasopressin 20 UNITS in Dextrose 5% In Water 100 ML IV SCH ×4 (03:24→21:15)
[2017-03-11] MEDS: Dexmedetomidine HCl 4mcg/ml 400 MCG/100 ML BOTTLE IV PRN ×2 (04:17→08:38)
[2017-03-11] MEDS ORDERED: Amiodarone 360 mg/D5W 200 ml 360 MG/200 ML BAG IV SCH (04:45)
[2017-03-11] MEDS: Acetaminophen 650mg/20.3ml solution UD GT PRN (04:49)
[2017-03-11] MEDS: Phenytoin 100 mg/4 ml Oral Susp UD PO SCH ×3 (05:51→21:51)
[2017-03-11 05:54] LABS: ARTERIAL BLOOD GAS HCO3 15.4 mmol/L (21-28); ARTERIAL BLOOD GAS O2 CAPACITY 12.8 mL/dl (16-24); ARTERIAL BLOOD GAS O2 CONTENT 12.8 ML/dl (15-23); ARTERIAL BLOOD GAS PH 7.38 (7.35-7.45); ARTERIAL BLOOD HGB O2 SAT 96.8 % (95.0-98.0); CARBOXYHEMOGLOBIN 2.3 % (0.5-1.5); HHB 0.2 % (0-5); METHEMOGLOBIN 0.7 % (0.0-3.0)
[2017-03-11 06:17] LABS: HEMATOCRIT 30.5 % (36.0-48.0); MEAN CELL VOLUME 82.2 fl (80.0-105.0); MEAN CORPUSCULAR HEMOGLOBIN 26.7 pg (25.0-35.0); MEAN CORPUSCULAR HGB CONC 32.5 g/dl (31.0-37.0); RED CELL DISTRIBUTION WIDTH 17.7 % (11.5-14.5)
[2017-03-11 06:37] LABS: PLATELET COUNT 19 10^3/uL (120.0-450.0)
[2017-03-11 06:38] LABS: WHITE BLOOD COUNT 3.3 10^3/ul (4.5-11.0)
--- NOTE | 2017-03-11 06:41 | CP.PCM.PN ---
<Leah Morillo - Last Filed: 03/11/17 07:13> Subjective - Date & Time of Evaluation Date of Evaluation: 03/11/17 Time of Evaluation: 06:40 - Subjective Subjective: Neurology Progress Note for Luca Yoo PGY2 Patient seen and examined at bedside. As per nursing, patient was tachycardic overnight on Dobutamine. Dobutamine was d/c. This morning patient is intubated and sedated. ROS could not be obtained. Objective - Vital Signs/Intake and Output Vital Signs (last 24 hours): Temp Pulse Resp BP Pulse Ox 100.0 F H 136 H 29 H 92/75 L 61 L 03/11/17 04:49 03/11/17 04:00 03/11/17 04:00 03/11/17 04:00 03/11/17 03:00 Intake and Output: 03/10/17 03/11/17 18:59 06:59 Intake Total 2442.0 658 Output Total 250 Balance 2192.0 658 - Medications Medications: Current Medications Acetaminophen (Tylenol 650mg/20.3ml Solution Ud) 650 mg GT Q4H PRN PRN Reason: Fever >100.4 F Last Admin: 03/11/17 04:49 Dose: 650 mg Albuterol/Ipratropium (Duoneb 3 Mg/0.5 Mg (3 Ml) Ud) 3 ml IH Q2H PRN PRN Reason: Shortness of Breath Last Admin: 03/10/17 19:50 Dose: 3 ml Atenolol (Tenormin) 12.5 mg PO BID [facility] Last Admin: 03/08/17 09:33 Dose: Not Given Chlorhexidine Gluconate (Peridex) 15 ml PO Q4 [facility] Last Admin: 03/11/17 03:07 Dose: 1 applic Digoxin (Lanoxin) 0.125 mg PO MWF [facility] Last Admin: 03/07/17 09:43 Dose: 0.125 mg Heparin Sodium (Porcine) (Heparin) 5,000 units SC Q8 [facility] PRN Reason: Protocol Last Admin: 03/10/17 05:52 Dose: 5,000 units Hydrocortisone Sodium Succinate (Solu-Cortef) 100 mg IVP Q8 [facility] Last Admin: 03/11/17 05:51 Dose: 100 mg Levetiracetam (Keppra 500mg Ivpb) 500 mg in 100 mls @ 400 mls/hr IVPB Q12 [facility] Last Admin: 03/10/17 21:40 Dose: 400 mls/hr Dexmedetomidine HCl (Precedex 4 Mcg/Ml (100 Ml)) 400 mcg in 100 mls @ 4.468 mls /hr IV .[id number] PRN; Protocol; 0.2 MCG/KG/HR PRN Reason: Anxiety Last Admin: 03/11/17 04:17 Dose: 1 mcg/kg/hr, 22.34 mls/hr Norepinephrine Bitartrate 8 mg (/ Sodium Chloride) 258 mls @ 77.4 mls/hr IV .Q3H20M DANICA; 40 MCG/MIN PRN Reason: Protocol Last Admin: 03/11/17 06:13 Dose: 40 mcg/min, 77.4 mls/hr Meropenem 500 mg/ Sodium (Chloride) 100 mls @ 100 mls/hr IVPB Q12 [facility] PRN Reason: Protocol Stop: 03/15/17 12:16 Last Admin: 03/10/17 21:41 Dose: 100 mls/hr Dextrose (Dextrose 10% In Water) 500 mls @ 30 mls/hr IV .[id number] [facility] Last Admin: 03/08/17 18:55 Dose: 30 mls/hr Amiodarone HCl/Dextrose (Nexterone 360 Mg In D5w 200 Ml (Premix)) 360 mg in 200 mls @ 16.667 mls/hr IV .Q12H DANICA; 0.5 MG/MIN PRN Reason: Protocol Last Admin: 03/10/17 20:08 Dose: 16.667 mls/hr Vasopressin 20 units/ Dextrose 101 mls @ 12.12 mls/hr IV .Q8H20M DANICA; 0.04 U/ MIN PRN Reason: Protocol Last Admin: 03/11/17 03:24 Dose: 12.12 mls/hr Dobutamine HCl/Dextrose (Dobutamine/Dextrose 5% 500mg/250ml) 500 mg in 250 mls @ 6.702 mls/hr IV .Q24H PRN; Protocol; 2.5 MCG/KG/MIN PRN Reason: TITRATE PER PROTOCOL Last Admin: 03/10/17 20:07 Dose: 6.702 mls/hr Amiodarone HCl/Dextrose (Nexterone 360 Mg In D5w 200 Ml (Premix)) 360 mg in 200 mls @ 33.333 mls/hr IV .Q6H DANICA; 1 MG/MIN PRN Reason: Protocol Last Admin: 03/11/17 06:11 Dose: 33.333 mls/hr Lorazepam (Ativan) 2 mg IVP Q6H PRN; Protocol PRN Reason: Anxiety Last Admin: 03/09/17 01:53 Dose: 2 mg Ondansetron HCl (Zofran Inj) 4 mg IVP Q4H PRN PRN Reason: Nausea/Vomiting Pantoprazole Sodium (Protonix Inj) 40 mg IVP DAILY [facility] Last Admin: 03/10/17 09:45 Dose: 40 mg Phenytoin (Dilantin) 100 mg PO Q8 [facility] Last Admin: 03/11/17 05:51 Dose: 100 mg - Labs Labs: 03/10/17 06:00 03/10/17 06:00 PT 17.7 Seconds (9.9-11.8) H 03/10/17 06:00 INR 1.64 (0.93-1.08) H 03/10/17 06:00 APTT 34.7 Seconds (23.7-30.8) H 03/10/17 06:00 - Head Exam Head Exam: ATRAUMATIC, NORMAL INSPECTION, NORMOCEPHALIC - Eye Exam Eye Exam: Periorbital swelling, PERRL Pupil Exam: Miosis, NORMAL ACCOMODATION, PERRL - ENT Exam ENT Exam: Mucous Membranes Moist - Respiratory Exam Respiratory Exam: Clear to Ausculation Bilateral, NORMAL BREATHING PATTERN. absent: Rales, Rhonchi, Wheezes - Cardiovascular Exam Cardiovascular Exam: Tachycardia, REGULAR RHYTHM, +S1, +S2. absent: Gallop, Rubs, Murmur - GI/Abdominal Exam GI & Abdominal Exam: Soft, Normal Bowel Sounds. absent: Rigid, Tenderness, Mass , Rebound - Extremities Exam Extremities Exam: Pedal Edema (+ 1 bilaterally ) - Neurological Exam Neurological Exam: CN II-XII Intact Additional comments: Pt intubated and sedated. Gag reflex, cough reflex and dolls eye reflex intact. - Skin Skin Exam: Dry, Warm Assessment and Plan - Assessment and Plan (Free Text) Assessment: This is a 61Y female with PMH CAD s/p stent, a.fib, COPD on 3L , cardiomyopathy, severe pulmonary HTN, seizures, benign epidermoid brain tumor s/p resection and small cell lung cancer on chemo (Alimta) who was admitted for AMS, seizure activity and kidney failure now on HD. Seizures and AMS can be secondary to uremia and metabolic derangements. Patient also reports she didnt take her seizure medications for a couple days due to nausea from chemotherapy. EEG showed bilateral cerebral dysfunction without epileptiform activity. Patient has not had any further episodes of seizure. During her hospital course patient is found to be in septic and cardiogenic shock (currently on pressors), acute renal failure, a.fib with multiorgan dysfunction. She is now thrombocytopenic as well. As per family patient is now DNR. Plan: - Continue seizure precautions - Continue Keppra - Continue Dilantin - Ativan prn seizures - Maintain SBP in 120s for adequate cerebral perfusion - Palliative care consulted Prognosis is guarded. Case seen, discussed and reviewed with attending, Dr. Worthy. Luca Morillo PGY2 <Fausto Worthy - Last Filed: 03/11/17 10:13> Objective - Vital Signs/Intake and Output Vital Signs (last 24 hours): Temp Pulse Resp BP Pulse Ox 100.0 F H 136 H 26 H 92/75 L 99 03/11/17 04:49 03/11/17 04:00 03/11/17 06:57 03/11/17 04:00 03/11/17 06:57 Intake and Output: 03/11/17 03/11/17 06:59 18:59 Intake Total 2059 100 Output Total 300 Balance 1759 100 - Medications Medications: Current Medications Acetaminophen (Tylenol 650mg/20.3ml Solution Ud) 650 mg GT Q4H PRN PRN Reason: Fever >100.4 F Last Admin: 03/11/17 04:49 Dose: 650 mg Albuterol/Ipratropium (Duoneb 3 Mg/0.5 Mg (3 Ml) Ud) 3 ml IH Q2H PRN PRN Reason: Shortness of Breath Last Admin: 03/11/17 06:50 Dose: 3 ml Atenolol (Tenormin) 12.5 mg PO BID [facility] Last Admin: 03/08/17 09:33 Dose: Not Given Chlorhexidine Gluconate (Peridex) 15 ml PO Q4 [facility] Last Admin: 03/11/17 03:07 Dose: 1 applic Digoxin (Lanoxin) 0.125 mg PO MWF [facility] Last Admin: 03/07/17 09:43 Dose: 0.125 mg Heparin Sodium (Porcine) (Heparin) 5,000 units SC Q8 [facility] PRN Reason: Protocol Last Admin: 03/10/17 05:52 Dose: 5,000 units Hydrocortisone Sodium Succinate (Solu-Cortef) 100 mg IVP Q8 [facility] Last Admin: 03/11/17 05:51 Dose: 100 mg Levetiracetam (Keppra 500mg Ivpb) 500 mg in 100 mls @ 400 mls/hr IVPB Q12 [facility] Last Admin: 03/11/17 10:00 Dose: 400 mls/hr Dexmedetomidine HCl (Precedex 4 Mcg/Ml (100 Ml)) 400 mcg in 100 mls @ 4.468 mls /hr IV .[id number] PRN; Protocol; 0.2 MCG/KG/HR PRN Reason: Anxiety Last Admin: 03/11/17 08:38 Dose: 1 mcg/kg/hr, 22.34 mls/hr Norepinephrine Bitartrate 8 mg (/ Sodium Chloride) 258 mls @ 77.4 mls/hr IV .Q3H20M [facility]ANICA; 40 MCG/MIN PRN Reason: Protocol Last Admin: 03/11/17 06:13 Dose: 40 mcg/min, 77.4 mls/hr Meropenem 500 mg/ Sodium (Chloride) 100 mls @ 100 mls/hr IVPB Q12 [facility]ANICA PRN Reason: Protocol Stop: 03/15/17 12:16 Last Admin: 03/10/17 21:41 Dose: 100 mls/hr Dextrose (Dextrose 10% In Water) 500 mls @ 30 mls/hr IV .[id number] [facility] Last Admin: 03/08/17 18:55 Dose: 30 mls/hr Amiodarone HCl/Dextrose (Nexterone 360 Mg In D5w 200 Ml (Premix)) 360 mg in 200 mls @ 16.667 mls/hr IV .Q12H [facility]ANICA; 0.5 MG/MIN PRN Reason: Protocol Last Admin: 03/10/17 20:08 Dose: 16.667 mls/hr Vasopressin 20 units/ Dextrose 101 mls @ 12.12 mls/hr IV .Q8H20M [facility]ANICA; 0.04 U/ MIN PRN Reason: Protocol Last Admin: 03/11/17 03:24 Dose: 12.12 mls/hr Dobutamine HCl/Dextrose (Dobutamine/Dextrose 5% 500mg/250ml) 500 mg in 250 mls @ 6.702 mls/hr IV .Q24H PRN; Protocol; 2.5 MCG/KG/MIN PRN Reason: TITRATE PER PROTOCOL Last Admin: 03/10/17 20:07 Dose: 6.702 mls/hr Amiodarone HCl/Dextrose (Nexterone 360 Mg In D5w 200 Ml (Premix)) 360 mg in 200 mls @ 33.333 mls/hr IV .Q6H DANICA; 1 MG/MIN PRN Reason: Protocol Last Admin: 03/11/17 06:11 Dose: 33.333 mls/hr Magnesium Sulfate 2 gm/ Sodium (Chloride) 104 mls @ 102 mls/hr IVPB ONCE ONE Stop: 03/11/17 10:38 Lorazepam (Ativan) 2 mg IVP Q6H PRN; Protocol PRN Reason: Anxiety Last Admin: 03/09/17 01:53 Dose: 2 mg Ondansetron HCl (Zofran Inj) 4 mg IVP Q4H PRN PRN Reason: Nausea/Vomiting Pantoprazole Sodium (Protonix Inj) 40 mg IVP DAILY [facility] Last Admin: 03/11/17 10:04 Dose: 40 mg Phenytoin (Dilantin) 100 mg PO Q8 [facility] Last Admin: 03/11/17 05:51 Dose: 100 mg - Labs Labs: 03/11/17 05:30 03/11/17 05:30 PT 17.7 Seconds (9.9-11.8) H 03/10/17 06:00 INR 1.64 (0.93-1.08) H 03/10/17 06:00 APTT 34.7 Seconds (23.7-30.8) H 03/10/17 06:00 Attending/Attestation - Attestation I have personally seen and examined this patient.: Yes I have fully participated in the care of the patient.: Yes I have reviewed all pertinent clinical information, including history, physical exam and plan: Yes
[2017-03-11] MEDS: Albuterol-Ipratrop 3 mg / 0.5 (3 ml) UD IH PRN ×3 (06:50→21:03)
[2017-03-11 06:52] LABS: ALB/GLOB RATIO 1.4 (1.1-1.8); BILIRUBIN,TOTAL 2.6 mg/dL (0.2-1.3); CALCIUM 7.7 mg/dL (8.4-10.5); POTASSIUM 4.7 mmol/L (3.6-5.0); TOTAL PROTEIN 4.6 g/dL (5.8-8.3)
[2017-03-11 08:00] LABS: PLATELET ESTIMATE LOW (NORMAL)
[2017-03-11] MEDS ORDERED: Magnesium Sulfate 2 GM in Sodium Chloride 0.9% 100 ML IVPB ONE (09:37)
[2017-03-11] MEDS: levETIRAcetam 500mg IVPB 500 MG/100 ML BAG IVPB SCH ×2 (10:00→21:52)
--- NOTE | 2017-03-11 10:05 | RAD ---
HISTORY: intubated, f/u COMPARISON: 03/10/2017 FINDINGS: LUNGS: There is a patchy infiltrate at the right lung base consistent with pneumonia. This has increased. PLEURA: No significant pleural effusion identified, no pneumothorax apparent. CARDIOVASCULAR: Normal. OSSEOUS STRUCTURES: No significant abnormalities. VISUALIZED UPPER ABDOMEN: Normal. OTHER FINDINGS: Central lines and tubes are unchanged IMPRESSION: Increasing right lower lobe infiltrate
[2017-03-11] MEDS ORDERED: Sodium Chloride 0.9% 1,000 ML IV STA ×2 (10:59→15:10)
[2017-03-11] MEDS ORDERED: Digoxin 500 mcg/2ml (0.5 mg/2ml) Inj IVP ONE (11:01)
[2017-03-11 11:43] VITALS: PULSE 92
[2017-03-11] MEDS: Meropenem 500 MG in Sodium Chloride 0.9% 100 ML IVPB SCH ×2 (12:10→21:48)
[2017-03-11 12:39] LABS: ALB/GLOB RATIO 1.4 (1.1-1.8); BILIRUBIN,TOTAL 2.7 mg/dL (0.2-1.3); CALCIUM 7.5 mg/dL (8.4-10.5); MAGNESIUM 2.6 mg/dL (1.7-2.2); PHOSPHOROUS 6.6 mg/dL (2.5-4.5); POTASSIUM 4.5 mmol/L (3.6-5.0); TOTAL PROTEIN 4.8 g/dL (5.8-8.3)
[2017-03-11 12:58] LABS: INR 1.77 (0.93-1.08); PARTIAL THROMBOPLASTIN TIME 33.4 Seconds (23.7-30.8)
[2017-03-11 13:15] LABS: FIBRINOGEN 289.8 mg/dL (187-400)
--- NOTE | 2017-03-11 14:12 | CP.CCUPN ---
<Vaughn Manzanares - Last Filed: 03/11/17 18:26> CCU Subjective - Physician Review Subjective (Free Text): 03/11/17 14:03 Patient seen and examined at bedside in ICU. Remains intubated and sedated on Precedex. Overnight, received another round of HD. Remains on dual pressor support (Levophed 40mcg and Vasopressin 0.04mcg), maintain MAP > 65 on dual pressors. Remains minimally responsive on Precedex, will intermittently break through sedation and attempt to fight against restraints and ventilator, but always rapidly tires and returns to sedation. Underwent presure support trial today, tolerated well. CCU Objective - Vital Signs / Intake & Output Vital Signs (Last 4 hours): Vital Signs Pulse BP 03/11/17 11:23 91 H 130/79 Intake and Output (Last 8hrs): Intake & Output 03/10/17 03/11/17 03/11/17 22:59 06:59 14:59 Intake Total 1994.2 1894 100 Output Total 250 300 Balance 1744.2 1594 100 Weight 100.788 kg 106 kg Intake: IV 1754.2 1648 100 amio 112 234 levo 770 535 precedex 336 242 vaso 120 144 Oral 0 Tube Feeding 240 0 TPN/PPN 0 Blood Product 0 Lipid 0 Albumin 0 Other 246 Output: Urine 250 300 Urethral (Quesada) 250 300 Stool 0 Urine/Stool Mix 0 Emesis 0 Oral Regurgitation 0 Other 0 Other: # Voids Urethral ([place]ues[place]) 0 # Bowel Movements 0 - Physical Exam Physical Exam Limitations: Positive for: Other (Intubated and sedated) Head: Positive for: Atraumatic, Normocephalic Pupils: Positive for: PERRL, Sluggish Extroacular Muscles: Positive for: Other (Sedated, not following commands, not moving eyes to avoid direct light challenge for PERRL). Negative for: EOMI Conjunctiva: Negative for: Injected, Icteric Mouth: Positive for: Moist Mucous Membranes, Dry, Other (ETT in place, OGT in place) Nose (External): Positive for: Atraumatic. Negative for: Abrasion, Contusion, Laceration Neck: Negative for: JVD, Lymphadenopathy Respiratory/Chest: Positive for: Good Air Exchange, Decreased Breath Sounds ( mild-moderately decreased in all marie), Rhonchi (diffuse ronchorous breath sounds, more prominent on the right). Negative for: Clear to Auscultation, Respiratory Distress, Accessory Muscle Use, Wheezes, Retracting Cardiovascular: Positive for: Normal S1, S2, Peripheal Pulses Present (radials + 1, unable to palpate dorsalis pedis/posterior tibial pulses), Tachycardic. Negative for: Regular Rate and Rhythm, Murmurs, Irregular Rhythm, Bradycardic Abdomen: Negative for: Tenderness, Distention (obese, but not rigid or distended ), Normal Bowel Sounds (decreased bowel sounds), Rebound, Guarding Upper Extremity: Positive for: Edema (non-pitting edema in bilateral UE), NORMAL PULSES (+1 radials), Swelling, Temperature Abnormalties (cool to palpation at hands and feet). Negative for: Normal Inspection, Cyanosis, Erythema, Deformity Lower Extremity: Positive for: Edema (+2-3 pitting edema in bilateral LE, up to mid-thigh), Swelling, Temperature Abnormalties (cool to palpation at feet/ ankles bilaterally). Negative for: Normal Inspection, NORMAL PULSES (unable to palpate dorsalis pedis or posterior tibial pulses), Cyanosis, Erythema, Deformity Neurological: Positive for: Other (intubated and sedated, minimal activity, some fighting against restraints when breaking sedation but no other purposeful or guided movements). Negative for: GCS=15, CN II-XII Intact, Speech Normal, Motor Func Grossly Intact Skin: Positive for: Warm (except at distal portions of UE and LE bilaterally), Dry, Normal Color. Negative for: Rashes Psychiatric: Positive for: Other (Intubated and sedated, intermittently agitated when breaking through sedation). Negative for: Alert, Oriented x 3, Normal Concentration, Normal Affect, Normal Mood, Anxious, Agitated - Medications Active Medications: Active Medications Generic Name Dose Route Start Last Admin Trade Name Freq PRN Reason Stop Dose Admin Acetaminophen 650 mg 03/10/17 06:18 03/11/17 04:49 Tylenol 650mg/20.3ml Solution Ud GT 650 mg Q4H PRN Administration Fever >100.4 F Albuterol/Ipratropium 3 ml 03/06/17 15:09 03/11/17 13:46 Duoneb 3 Mg/0.5 Mg (3 Ml) Ud IH 3 ml Q2H PRN Administration Shortness of Breath Atenolol 12.5 mg 03/07/17 10:00 03/08/17 09:33 Tenormin PO Not Given BID DANICA Chlorhexidine Gluconate 15 ml 03/08/17 20:00 03/11/17 12:11 Peridex PO 1 applic Q4 DANICA Administration Digoxin 0.125 mg 03/07/17 10:00 03/07/17 09:43 Lanoxin PO 0.125 mg MWF DANICA Administration Heparin Sodium (Porcine) 5,000 units 03/06/17 22:00 03/10/17 05:52 Heparin SC 5,000 units Q8 DANICA Administration Protocol Hydrocortisone Sodium Succinate 100 mg 03/08/17 16:15 03/11/17 05:51 Solu-Cortef IVP 100 mg Q8 DANICA Administration Levetiracetam 500 mg in 100 mls @ 400 mls/hr 03/06/17 22:00 03/11/17 10:00 Keppra 500mg Ivpb IVPB 400 mls/hr Q12 DANICA Administration Dexmedetomidine HCl 400 mcg in 100 mls @ 4.468 mls/hr 03/07/17 17:23 08:38 Precedex 4 Mcg/Ml (100 Ml) IV 1 mcg/kg/hr .[id number] PRN 22.34 mls/hr Anxiety Administration Protocol 0.2 MCG/KG/HR Norepinephrine Bitartrate 8 mg 258 mls @ 77.4 mls/hr 03/08/17 02:30 03/11/17 06:13 / Sodium Chloride IV 40 mcg/min .[id number] DANICA 77.4 mls/hr Protocol Administration 40 MCG/MIN Meropenem 500 mg/ Sodium 100 mls @ 100 mls/hr 03/08/17 12:15 03/11/17 12:10 Chloride IVPB 03/15/17 12:16 100 mls/hr Q12 DANICA Administration Protocol Dextrose 500 mls @ 30 mls/hr 03/08/17 18:43 03/08/17 18:55 Dextrose 10% In Water IV 30 mls/hr .[id number] DANICA Administration Amiodarone HCl/Dextrose 360 mg in 200 mls @ 16.667 mls/hr 03/09/17 15:15 02/16 20:08 Nexterone 360 Mg In D5w 200 Ml (Premix) IV 16.667 mls/hr .Q12H DANICA Administration Protocol 0.5 MG/MIN Vasopressin 20 units/ Dextrose 101 mls @ 12.12 mls/hr 03/10/17 11:39 03:24 IV 12.12 mls/hr .[id number] DANICA Administration Protocol 0.04 U/MIN Dobutamine HCl/Dextrose 500 mg in 250 mls @ 6.702 mls/hr 03/10/17 18:18 03/10 20:07 Dobutamine/Dextrose 5% 500mg/250ml IV 6.702 mls/hr .Q24H PRN Administration TITRATE PER PROTOCOL Protocol 2.5 MCG/KG/MIN Lorazepam 2 mg 03/06/17 19:16 03/09/17 01:53 Ativan IVP 2 mg Q6H PRN Administration Anxiety Protocol Ondansetron HCl 4 mg 03/06/17 16:03 Zofran Inj IVP Q4H PRN Nausea/Vomiting Pantoprazole Sodium 40 mg 03/07/17 10:00 03/11/17 10:04 Protonix Inj IVP 40 mg DAILY DANICA Administration Phenytoin 100 mg 03/09/17 10:32 03/11/17 05:51 Dilantin PO 100 mg Q8 DANICA Administration Verapamil HCl 2.5 mg 03/11/17 11:00 03/11/17 11:23 Verapamil Inj IVP 2.5 mg Q6H PRN Administration fpr herat rate >130 - Patient Studies Lab Studies: Microbiology Studies 03/10/17 14:15 Urine Culture - Final Urine No Growth (<1,000 CFU/ML) 03/10/17 08:00 Blood Culture - Preliminary Blood-Venous NO GROWTH AFTER 24 HOURS 03/10/17 08:00 Blood Culture - Preliminary Blood-Venous NO GROWTH AFTER 24 HOURS 03/07/17 19:39 Gram Stain - Final Trachasp Sputum Culture - Final NORMAL ORAL SONYA Lab Studies 03/11/17 03/11/17 03/11/17 Range/Units 12:23 12:23 12:23 WBC (4.5-11.0) 10^3/ul RBC (3.5-6.1) 10^6/uL Hgb (12.0-16.0) g/dL Hct (36.0-48.0) % MCV (80.0-105.0) fl MCH (25.0-35.0) pg MCHC (31.0-37.0) g/dl RDW (11.5-14.5) % Plt Count (120.0-450.0) 10^3/uL Manual Plt Count (120-450) K/mm3 Platelet Evaluation (NORMAL) PT 19.1 H (9.9-11.8) Seconds INR 1.77 H (0.93-1.08) APTT 33.4 H (23.7-30.8) Seconds Fibrinogen 289.8 (187-400) mg/dL Fibrin Degrad Products >40 ug/ml (< 10 ug/mL) D-Dimer, Quantitative 10.00 H (0-0.50) mg/L FEU pCO2 (35-45) mm/Hg pO2 (30-55) mm/Hg HCO3 (21-28) mmol/L ABG pH (7.35-7.45) ABG Total CO2 (22-28) mmol.L ABG O2 Saturation (95-98) % ABG O2 Content (15-23) ML/dl ABG Base Excess (-2.0-3.0) mmol/L ABG Hemoglobin (11.7-17.4) g/dL ABG Carboxyhemoglobin (0.5-1.5) % POC ABG HHb (Measured) (0-5) % ABG Methemoglobin (0.0-3.0) % ABG O2 Capacity (16-24) mL/dl VBG pH (7.32-7.43) VBG pCO2 (40-60) VBG HCO3 (21-28) mmol/l VBG Total CO2 (22-28) mmol.L VBG O2 Sat (Calc) (40-65) % VBG Base Excess (0.0-2.0) mmol/L VBG Potassium (3.6-5.2) mmol/L Hgb O2 Saturation (95.0-98.0) % Sodium 137 (132-148) mmol/L Chloride 105 (98-107) mmol/L Glucose (65-105) mg/dl Lactate (0.7-2.1) mmol/L FiO2 % Potassium 4.5 (3.6-5.0) mmol/L Carbon Dioxide 18 L (21-33) mmol/L Anion Gap 19 (10-20) BUN 61 H (7-21) mg/dL Creatinine 2.5 H (0.7-1.2) mg/dL Est GFR ( Amer) 24 Est GFR (Non-Af Amer) 20 POC Glucose (mg/dL) (65-110) mg/dL Random Glucose 202 H (70-110) mg/dL Calcium 7.5 L (8.4-10.5) mg/dL Phosphorus 6.6 H (2.5-4.5) mg/dL Magnesium 2.6 H (1.7-2.2) mg/dL Total Bilirubin 2.7 H (0.2-1.3) mg/dL AST 617 H (14-36) U/L ALT 1414 H (7-56) U/L Alkaline Phosphatase 125 (38-126) U/L Total Creatine Kinase 222 (35-230) U/L Total Protein 4.8 L (5.8-8.3) g/dL Albumin 2.8 L (3.0-4.8) g/dL Globulin 2.0 gm/dL Albumin/Globulin Ratio 1.4 (1.1-1.8) Venous Blood Potassium (3.6-5.2) mmol/L Urine Color (YELLOW) Urine Appearance (CLEAR) Urine pH (4.7-8.0) Ur Specific [place] (1.005-1.035) Urine Protein (<30 mg/dL) mg/dL Urine Glucose (UA) (NEGATIVE) mg/dL Urine Ketones (NEGATIVE) mg/dL Urine Blood (NEGATIVE) Urine Nitrate (NEGATIVE) Urine Bilirubin (NEGATIVE) Urine Urobilinogen (<1 E.U./dL) E.U./dL Ur Leukocyte Esterase (NEGATIVE) Gayle/uL Urine RBC (0-2) /hpf Urine WBC (0-6) /hpf Ur Epithelial Cells (0-5) /hpf Urine Bacteria (NEG) Coarse Granular Casts (0-2) /hpf Urine Microalbumin (0.0-16.6) mg/L 03/11/17 03/11/17 03/11/17 Range/Units 09:11 05:30 05:30 WBC (4.5-11.0) 10^3/ul RBC (3.5-6.1) 10^6/uL Hgb (12.0-16.0) g/dL Hct (36.0-48.0) % MCV (80.0-105.0) fl MCH (25.0-35.0) pg MCHC (31.0-37.0) g/dl RDW (11.5-14.5) % Plt Count (120.0-450.0) 10^3/uL Manual Plt Count 25 L* (120-450) K/mm3 Platelet Evaluation (NORMAL) PT (9.9-11.8) Seconds INR (0.93-1.08) APTT (23.7-30.8) Seconds Fibrinogen (187-400) mg/dL Fibrin Degrad Products (< 10 ug/mL) D-Dimer, Quantitative (0-0.50) mg/L FEU pCO2 26 L (35-45) mm/Hg pO2 150.0 H (30-55) mm/Hg HCO3 15.4 L (21-28) mmol/L ABG pH 7.38 (7.35-7.45) ABG Total CO2 16.2 L (22-28) mmol.L ABG O2 Saturation 99.8 H (95-98) % ABG O2 Content 12.8 L (15-23) ML/dl ABG Base Excess -8.6 L (-2.0-3.0) mmol/L ABG Hemoglobin 9.2 L (11.7-17.4) g/dL ABG Carboxyhemoglobin 2.3 H (0.5-1.5) % POC ABG HHb (Measured) 0.2 (0-5) % ABG Methemoglobin 0.7 (0.0-3.0) % ABG O2 Capacity 12.8 L (16-24) mL/dl VBG pH (7.32-7.43) VBG pCO2 (40-60) VBG HCO3 (21-28) mmol/l VBG Total CO2 (22-28) mmol.L VBG O2 Sat (Calc) (40-65) % VBG Base Excess (0.0-2.0) mmol/L VBG Potassium (3.6-5.2) mmol/L Hgb O2 Saturation 96.8 (95.0-98.0) % Sodium 137 (132-148) mmol/L Chloride 104 (98-107) mmol/L Glucose (65-105) mg/dl Lactate (0.7-2.1) mmol/L FiO2 50.0 % Potassium 4.7 (3.6-5.0) mmol/L Carbon Dioxide 20 L (21-33) mmol/L Anion Gap 18 (10-20) BUN 57 H (7-21) mg/dL Creatinine 2.5 H (0.7-1.2) mg/dL Est GFR ( Amer) 24 Est GFR (Non-Af Amer) 20 POC Glucose (mg/dL) (65-110) mg/dL Random Glucose 196 H (70-110) mg/dL Calcium 7.7 L (8.4-10.5) mg/dL Phosphorus (2.5-4.5) mg/dL Magnesium (1.7-2.2) mg/dL Total Bilirubin 2.6 H (0.2-1.3) mg/dL AST 688 H D (14-36) U/L ALT 1499 H (7-56) U/L Alkaline Phosphatase 113 (38-126) U/L Total Creatine Kinase (35-230) U/L Total Protein 4.6 L (5.8-8.3) g/dL Albumin 2.7 L (3.0-4.8) g/dL Globulin 2.0 gm/dL Albumin/Globulin Ratio 1.4 (1.1-1.8) Venous Blood Potassium (3.6-5.2) mmol/L Urine Color (YELLOW) Urine Appearance (CLEAR) Urine pH (4.7-8.0) Ur Specific [place] (1.005-1.035) Urine Protein (<30 mg/dL) mg/dL Urine Glucose (UA) (NEGATIVE) mg/dL Urine Ketones (NEGATIVE) mg/dL Urine Blood (NEGATIVE) Urine Nitrate (NEGATIVE) Urine Bilirubin (NEGATIVE) Urine Urobilinogen (<1 E.U./dL) E.U./dL Ur Leukocyte Esterase (NEGATIVE) Gayle/uL Urine RBC (0-2) /hpf Urine WBC (0-6) /hpf Ur Epithelial Cells (0-5) /hpf Urine Bacteria (NEG) Coarse Granular Casts (0-2) /hpf Urine Microalbumin (0.0-16.6) mg/L 03/11/17 03/11/17 03/10/17 Range/Units 05:30 03:54 23:49 WBC 3.3 L D (4.5-11.0) 10^3/ul RBC 3.71 (3.5-6.1) 10^6/uL Hgb 9.9 L (12.0-16.0) g/dL Hct 30.5 L (36.0-48.0) % MCV 82.2 (80.0-105.0) fl MCH 26.7 (25.0-35.0) pg MCHC 32.5 (31.0-37.0) g/dl RDW 17.7 H (11.5-14.5) % Plt Count 19 L* (120.0-450.0) 10^3/uL Manual Plt Count (120-450) K/mm3 Platelet Evaluation Low (NORMAL) PT (9.9-11.8) Seconds INR (0.93-1.08) APTT (23.7-30.8) Seconds Fibrinogen (187-400) mg/dL Fibrin Degrad Products (< 10 ug/mL) D-Dimer, Quantitative (0-0.50) mg/L FEU pCO2 (35-45) mm/Hg pO2 (30-55) mm/Hg HCO3 (21-28) mmol/L ABG pH (7.35-7.45) ABG Total CO2 (22-28) mmol.L ABG O2 Saturation (95-98) % ABG O2 Content (15-23) ML/dl ABG Base Excess (-2.0-3.0) mmol/L ABG Hemoglobin (11.7-17.4) g/dL ABG Carboxyhemoglobin (0.5-1.5) % POC ABG HHb (Measured) (0-5) % ABG Methemoglobin (0.0-3.0) % ABG O2 Capacity (16-24) mL/dl VBG pH (7.32-7.43) VBG pCO2 (40-60) VBG HCO3 (21-28) mmol/l VBG Total CO2 (22-28) mmol.L VBG O2 Sat (Calc) (40-65) % VBG Base Excess (0.0-2.0) mmol/L VBG Potassium (3.6-5.2) mmol/L Hgb O2 Saturation (95.0-98.0) % Sodium (132-148) mmol/L Chloride (98-107) mmol/L Glucose (65-105) mg/dl Lactate (0.7-2.1) mmol/L FiO2 % Potassium (3.6-5.0) mmol/L Carbon Dioxide (21-33) mmol/L Anion Gap (10-20) BUN (7-21) mg/dL Creatinine (0.7-1.2) mg/dL Est GFR ( Amer) Est GFR (Non-Af Amer) POC Glucose (mg/dL) 179 H 180 H (65-110) mg/dL Random Glucose (70-110) mg/dL Calcium (8.4-10.5) mg/dL Phosphorus (2.5-4.5) mg/dL Magnesium (1.7-2.2) mg/dL Total Bilirubin (0.2-1.3) mg/dL AST (14-36) U/L ALT (7-56) U/L Alkaline Phosphatase (38-126) U/L Total Creatine Kinase (35-230) U/L Total Protein (5.8-8.3) g/dL Albumin (3.0-4.8) g/dL Globulin gm/dL Albumin/Globulin Ratio (1.1-1.8) Venous Blood Potassium (3.6-5.2) mmol/L Urine Color (YELLOW) Urine Appearance (CLEAR) Urine pH (4.7-8.0) Ur Specific [place] (1.005-1.035) Urine Protein (<30 mg/dL) mg/dL Urine Glucose (UA) (NEGATIVE) mg/dL Urine Ketones (NEGATIVE) mg/dL Urine Blood (NEGATIVE) Urine Nitrate (NEGATIVE) Urine Bilirubin (NEGATIVE) Urine Urobilinogen (<1 E.U./dL) E.U./dL Ur Leukocyte Esterase (NEGATIVE) Gayle/uL Urine RBC (0-2) /hpf Urine WBC (0-6) /hpf Ur Epithelial Cells (0-5) /hpf Urine Bacteria (NEG) Coarse Granular Casts (0-2) /hpf Urine Microalbumin (0.0-16.6) mg/L 03/10/17 03/10/17 03/10/17 Range/Units 22:30 19:35 18:59 WBC (4.5-11.0) 10^3/ul RBC (3.5-6.1) 10^6/uL Hgb (12.0-16.0) g/dL Hct (36.0-48.0) % MCV (80.0-105.0) fl MCH (25.0-35.0) pg MCHC (31.0-37.0) g/dl RDW (11.5-14.5) % Plt Count (120.0-450.0) 10^3/uL Manual Plt Count (120-450) K/mm3 Platelet Evaluation (NORMAL) PT (9.9-11.8) Seconds INR (0.93-1.08) APTT (23.7-30.8) Seconds Fibrinogen (187-400) mg/dL Fibrin Degrad Products (< 10 ug/mL) D-Dimer, Quantitative (0-0.50) mg/L FEU pCO2 (35-45) mm/Hg pO2 32 38 (30-55) mm/Hg HCO3 (21-28) mmol/L ABG pH (7.35-7.45) ABG Total CO2 (22-28) mmol.L ABG O2 Saturation (95-98) % ABG O2 Content (15-23) ML/dl ABG Base Excess (-2.0-3.0) mmol/L ABG Hemoglobin (11.7-17.4) g/dL ABG Carboxyhemoglobin (0.5-1.5) % POC ABG HHb (Measured) (0-5) % ABG Methemoglobin (0.0-3.0) % ABG O2 Capacity (16-24) mL/dl VBG pH 7.26 L 7.23 L (7.32-7.43) VBG pCO2 44.0 54.0 (40-60) VBG HCO3 19.7 L 22.6 (21-28) mmol/l VBG Total CO2 21.1 L 24.3 (22-28) mmol.L VBG O2 Sat (Calc) 57.8 66.3 H (40-65) % VBG Base Excess -7.2 L -5.5 L (0.0-2.0) mmol/L VBG Potassium 4.5 4.0 (3.6-5.2) mmol/L Hgb O2 Saturation (95.0-98.0) % Sodium 134.0 135.0 (132-148) mmol/L Chloride 104.0 104.0 (98-107) mmol/L Glucose 191 H 146 H (65-105) mg/dl Lactate 3.5 H 3.0 H (0.7-2.1) mmol/L FiO2 21.0 21.0 % Potassium (3.6-5.0) mmol/L Carbon Dioxide (21-33) mmol/L Anion Gap (10-20) BUN (7-21) mg/dL Creatinine (0.7-1.2) mg/dL Est GFR ( Amer) Est GFR (Non-Af Amer) POC Glucose (mg/dL) 122 H (65-110) mg/dL Random Glucose (70-110) mg/dL Calcium (8.4-10.5) mg/dL Phosphorus (2.5-4.5) mg/dL Magnesium (1.7-2.2) mg/dL Total Bilirubin (0.2-1.3) mg/dL AST (14-36) U/L ALT (7-56) U/L Alkaline Phosphatase (38-126) U/L Total Creatine Kinase (35-230) U/L Total Protein (5.8-8.3) g/dL Albumin (3.0-4.8) g/dL Globulin gm/dL Albumin/Globulin Ratio (1.1-1.8) Venous Blood Potassium 4.5 4.0 (3.6-5.2) mmol/L Urine Color (YELLOW) Urine Appearance (CLEAR) Urine pH (4.7-8.0) Ur Specific [place] (1.005-1.035) Urine Protein (<30 mg/dL) mg/dL Urine Glucose (UA) (NEGATIVE) mg/dL Urine Ketones (NEGATIVE) mg/dL Urine Blood (NEGATIVE) Urine Nitrate (NEGATIVE) Urine Bilirubin (NEGATIVE) Urine Urobilinogen (<1 E.U./dL) E.U./dL Ur Leukocyte Esterase (NEGATIVE) Gayle/uL Urine RBC (0-2) /hpf Urine WBC (0-6) /hpf Ur Epithelial Cells (0-5) /hpf Urine Bacteria (NEG) Coarse Granular Casts (0-2) /hpf Urine Microalbumin (0.0-16.6) mg/L 03/10/17 03/10/17 03/10/17 Range/Units 16:44 14:20 14:15 WBC (4.5-11.0) 10^3/ul RBC (3.5-6.1) 10^6/uL Hgb (12.0-16.0) g/dL Hct (36.0-48.0) % MCV (80.0-105.0) fl MCH (25.0-35.0) pg MCHC (31.0-37.0) g/dl RDW (11.5-14.5) % Plt Count (120.0-450.0) 10^3/uL Manual Plt Count (120-450) K/mm3 Platelet Evaluation (NORMAL) PT (9.9-11.8) Seconds INR (0.93-1.08) APTT (23.7-30.8) Seconds Fibrinogen (187-400) mg/dL Fibrin Degrad Products (< 10 ug/mL) D-Dimer, Quantitative (0-0.50) mg/L FEU pCO2 (35-45) mm/Hg pO2 29 L (30-55) mm/Hg HCO3 (21-28) mmol/L ABG pH (7.35-7.45) ABG Total CO2 (22-28) mmol.L ABG O2 Saturation (95-98) % ABG O2 Content (15-23) ML/dl ABG Base Excess (-2.0-3.0) mmol/L ABG Hemoglobin (11.7-17.4) g/dL ABG Carboxyhemoglobin (0.5-1.5) % POC ABG HHb (Measured) (0-5) % ABG Methemoglobin (0.0-3.0) % ABG O2 Capacity (16-24) mL/dl VBG pH 7.26 L (7.32-7.43) VBG pCO2 41.0 (40-60) VBG HCO3 18.4 L (21-28) mmol/l VBG Total CO2 19.7 L (22-28) mmol.L VBG O2 Sat (Calc) 51.9 (40-65) % VBG Base Excess -8.3 L (0.0-2.0) mmol/L VBG Potassium 4.9 (3.6-5.2) mmol/L Hgb O2 Saturation (95.0-98.0) % Sodium 134.0 (132-148) mmol/L Chloride 104.0 (98-107) mmol/L Glucose 155 H (65-105) mg/dl Lactate 4.2 H* (0.7-2.1) mmol/L FiO2 21.0 % Potassium (3.6-5.0) mmol/L Carbon Dioxide (21-33) mmol/L Anion Gap (10-20) BUN (7-21) mg/dL Creatinine (0.7-1.2) mg/dL Est GFR ( Amer) Est GFR (Non-Af Amer) POC Glucose (mg/dL) 158 H (65-110) mg/dL Random Glucose (70-110) mg/dL Calcium (8.4-10.5) mg/dL Phosphorus (2.5-4.5) mg/dL Magnesium (1.7-2.2) mg/dL Total Bilirubin (0.2-1.3) mg/dL AST (14-36) U/L ALT (7-56) U/L Alkaline Phosphatase (38-126) U/L Total Creatine Kinase (35-230) U/L Total Protein (5.8-8.3) g/dL Albumin (3.0-4.8) g/dL Globulin gm/dL Albumin/Globulin Ratio (1.1-1.8) Venous Blood Potassium 4.9 (3.6-5.2) mmol/L Urine Color Yellow (YELLOW) Urine Appearance Turbid (CLEAR) Urine pH 5.5 (4.7-8.0) Ur Specific [place] 1.025 (1.005-1.035) Urine Protein 100 H (<30 mg/dL) mg/dL Urine Glucose (UA) Negative (NEGATIVE) mg/dL Urine Ketones Negative (NEGATIVE) mg/dL Urine Blood Large H (NEGATIVE) Urine Nitrate Negative (NEGATIVE) Urine Bilirubin Small H (NEGATIVE) Urine Urobilinogen 0.2 (<1 E.U./dL) E.U./dL Ur Leukocyte Esterase Negative (NEGATIVE) Gayle/uL Urine RBC 25 - 30 (0-2) /hpf Urine WBC 0 - 2 (0-6) /hpf Ur Epithelial Cells 10 - 12 (0-5) /hpf Urine Bacteria Few (NEG) Coarse Granular Casts Small H (0-2) /hpf Urine Microalbumin (0.0-16.6) mg/L 03/10/17 03/07/17 Range/Units 11:36 05:01 WBC (4.5-11.0) 10^3/ul RBC (3.5-6.1) 10^6/uL Hgb (12.0-16.0) g/dL Hct (36.0-48.0) % MCV (80.0-105.0) fl MCH (25.0-35.0) pg MCHC (31.0-37.0) g/dl RDW (11.5-14.5) % Plt Count (120.0-450.0) 10^3/uL Manual Plt Count (120-450) K/mm3 Platelet Evaluation (NORMAL) PT (9.9-11.8) Seconds INR (0.93-1.08) APTT (23.7-30.8) Seconds Fibrinogen (187-400) mg/dL Fibrin Degrad Products >40 ug/ml (< 10 ug/mL) D-Dimer, Quantitative (0-0.50) mg/L FEU pCO2 (35-45) mm/Hg pO2 (30-55) mm/Hg HCO3 (21-28) mmol/L ABG pH (7.35-7.45) ABG Total CO2 (22-28) mmol.L ABG O2 Saturation (95-98) % ABG O2 Content (15-23) ML/dl ABG Base Excess (-2.0-3.0) mmol/L ABG Hemoglobin (11.7-17.4) g/dL ABG Carboxyhemoglobin (0.5-1.5) % POC ABG HHb (Measured) (0-5) % ABG Methemoglobin (0.0-3.0) % ABG O2 Capacity (16-24) mL/dl VBG pH (7.32-7.43) VBG pCO2 (40-60) VBG HCO3 (21-28) mmol/l VBG Total CO2 (22-28) mmol.L VBG O2 Sat (Calc) (40-65) % VBG Base Excess (0.0-2.0) mmol/L VBG Potassium (3.6-5.2) mmol/L Hgb O2 Saturation (95.0-98.0) % Sodium (132-148) mmol/L Chloride (98-107) mmol/L Glucose (65-105) mg/dl Lactate (0.7-2.1) mmol/L FiO2 % Potassium (3.6-5.0) mmol/L Carbon Dioxide (21-33) mmol/L Anion Gap (10-20) BUN (7-21) mg/dL Creatinine (0.7-1.2) mg/dL Est GFR ( Amer) Est GFR (Non-Af Amer) POC Glucose (mg/dL) (65-110) mg/dL Random Glucose (70-110) mg/dL Calcium (8.4-10.5) mg/dL Phosphorus (2.5-4.5) mg/dL Magnesium (1.7-2.2) mg/dL Total Bilirubin (0.2-1.3) mg/dL AST (14-36) U/L ALT (7-56) U/L Alkaline Phosphatase (38-126) U/L Total Creatine Kinase (35-230) U/L Total Protein (5.8-8.3) g/dL Albumin (3.0-4.8) g/dL Globulin gm/dL Albumin/Globulin Ratio (1.1-1.8) Venous Blood Potassium (3.6-5.2) mmol/L Urine Color (YELLOW) Urine Appearance (CLEAR) Urine pH (4.7-8.0) Ur Specific [place] (1.005-1.035) Urine Protein (<30 mg/dL) mg/dL Urine Glucose (UA) (NEGATIVE) mg/dL Urine Ketones (NEGATIVE) mg/dL Urine Blood (NEGATIVE) Urine Nitrate (NEGATIVE) Urine Bilirubin (NEGATIVE) Urine Urobilinogen (<1 E.U./dL) E.U./dL Ur Leukocyte Esterase (NEGATIVE) Gayle/uL Urine RBC (0-2) /hpf Urine WBC (0-6) /hpf Ur Epithelial Cells (0-5) /hpf Urine Bacteria (NEG) Coarse Granular Casts (0-2) /hpf Urine Microalbumin > 950.0 H (0.0-16.6) mg/L Laboratory Results - last 24 hr 03/07/17 03/10/17 03/10/17 05:01 11:36 14:15 WBC RBC Hgb Hct MCV MCH MCHC RDW Plt Count Manual Plt Count Platelet Evaluation PT INR APTT Fibrinogen Fibrin Degrad Products >40 ug/ml D-Dimer, Quantitative pCO2 pO2 HCO3 ABG pH ABG Total CO2 ABG O2 Saturation ABG O2 Content ABG Base Excess ABG Hemoglobin ABG Carboxyhemoglobin POC ABG HHb (Measured) ABG Methemoglobin ABG O2 Capacity VBG pH VBG pCO2 VBG HCO3 VBG Total CO2 VBG O2 Sat (Calc) VBG Base Excess VBG Potassium Hgb O2 Saturation Sodium Chloride Glucose Lactate FiO2 Potassium Carbon Dioxide Anion Gap BUN Creatinine Est GFR ( Amer) Est GFR (Non-Af Amer) POC Glucose (mg/dL) Random Glucose Calcium Phosphorus Magnesium Total Bilirubin AST ALT Alkaline Phosphatase Total Creatine Kinase Total Protein Albumin Globulin Albumin/Globulin Ratio Venous Blood Potassium Urine Color Yellow Urine Appearance Turbid Urine pH 5.5 Ur Specific [place] 1.025 Urine Protein 100 H Urine Glucose (UA) Negative Urine Ketones Negative Urine Blood Large H Urine Nitrate Negative Urine Bilirubin Small H Urine Urobilinogen 0.2 Ur Leukocyte Esterase Negative Urine RBC 25 - 30 Urine WBC 0 - 2 Ur Epithelial Cells 10 - 12 Urine Bacteria Few Coarse Granular Casts Small H Urine Microalbumin > 950.0 H 03/10/17 03/10/17 03/10/17 14:20 16:44 18:59 WBC RBC Hgb Hct MCV MCH MCHC RDW Plt Count Manual Plt Count Platelet Evaluation PT INR APTT Fibrinogen Fibrin Degrad Products D-Dimer, Quantitative pCO2 pO2 29 L 38 HCO3 ABG pH ABG Total CO2 ABG O2 Saturation ABG O2 Content ABG Base Excess ABG Hemoglobin ABG Carboxyhemoglobin POC ABG HHb (Measured) ABG Methemoglobin ABG O2 Capacity VBG pH 7.26 L 7.23 L VBG pCO2 41.0 54.0 VBG HCO3 18.4 L 22.6 VBG Total CO2 19.7 L 24.3 VBG O2 Sat (Calc) 51.9 66.3 H VBG Base Excess -8.3 L -5.5 L VBG Potassium 4.9 4.0 Hgb O2 Saturation Sodium 134.0 135.0 Chloride 104.0 104.0 Glucose 155 H 146 H Lactate 4.2 H* 3.0 H FiO2 21.0 21.0 Potassium Carbon Dioxide Anion Gap BUN Creatinine Est GFR ( Amer) Est GFR (Non-Af Amer) POC Glucose (mg/dL) 158 H Random Glucose Calcium Phosphorus Magnesium Total Bilirubin AST ALT Alkaline Phosphatase Total Creatine Kinase Total Protein Albumin Globulin Albumin/Globulin Ratio Venous Blood Potassium 4.9 4.0 Urine Color Urine Appearance Urine pH Ur Specific [place] Urine Protein Urine Glucose (UA) Urine Ketones Urine Blood Urine Nitrate Urine Bilirubin Urine Urobilinogen Ur Leukocyte Esterase Urine RBC Urine WBC Ur Epithelial Cells Urine Bacteria Coarse Granular Casts Urine Microalbumin 03/10/17 03/10/17 03/10/17 19:35 22:30 23:49 WBC RBC Hgb Hct MCV MCH MCHC RDW Plt Count Manual Plt Count Platelet Evaluation PT INR APTT Fibrinogen Fibrin Degrad Products D-Dimer, Quantitative pCO2 pO2 32 HCO3 ABG pH ABG Total CO2 ABG O2 Saturation ABG O2 Content ABG Base Excess ABG Hemoglobin ABG Carboxyhemoglobin POC ABG HHb (Measured) ABG Methemoglobin ABG O2 Capacity VBG pH 7.26 L VBG pCO2 44.0 VBG HCO3 19.7 L VBG Total CO2 21.1 L VBG O2 Sat (Calc) 57.8 VBG Base Excess -7.2 L VBG Potassium 4.5 Hgb O2 Saturation Sodium 134.0 Chloride 104.0 Glucose 191 H Lactate 3.5 H FiO2 21.0 Potassium Carbon Dioxide Anion Gap BUN Creatinine Est GFR ( Amer) Est GFR (Non-Af Amer) POC Glucose (mg/dL) 122 H 180 H Random Glucose Calcium Phosphorus Magnesium Total Bilirubin AST ALT Alkaline Phosphatase Total Creatine Kinase Total Protein Albumin Globulin Albumin/Globulin Ratio Venous Blood Potassium 4.5 Urine Color Urine Appearance Urine pH Ur Specific [place] Urine Protein Urine Glucose (UA) Urine Ketones Urine Blood Urine Nitrate Urine Bilirubin Urine Urobilinogen Ur Leukocyte Esterase Urine RBC Urine WBC Ur Epithelial Cells Urine Bacteria Coarse Granular Casts Urine Microalbumin 03/11/17 03/11/17 03/11/17 03:54 05:30 05:30 WBC 3.3 L D RBC 3.71 Hgb 9.9 L Hct 30.5 L MCV 82.2 MCH 26.7 MCHC 32.5 RDW 17.7 H Plt Count 19 L* Manual Plt Count Platelet Evaluation Low PT INR APTT Fibrinogen Fibrin Degrad Products D-Dimer, Quantitative pCO2 pO2 HCO3 ABG pH ABG Total CO2 ABG O2 Saturation ABG O2 Content ABG Base Excess ABG Hemoglobin ABG Carboxyhemoglobin POC ABG HHb (Measured) ABG Methemoglobin ABG O2 Capacity VBG pH VBG pCO2 VBG HCO3 VBG Total CO2 VBG O2 Sat (Calc) VBG Base Excess VBG Potassium Hgb O2 Saturation Sodium 137 Chloride 104 Glucose Lactate FiO2 Potassium 4.7 Carbon Dioxide 20 L Anion Gap 18 BUN 57 H Creatinine 2.5 H Est GFR ( Amer) 24 Est GFR (Non-Af Amer) 20 POC Glucose (mg/dL) 179 H Random Glucose 196 H Calcium 7.7 L Phosphorus Magnesium Total Bilirubin 2.6 H AST 688 H D ALT 1499 H Alkaline Phosphatase 113 Total Creatine Kinase Total Protein 4.6 L Albumin 2.7 L Globulin 2.0 Albumin/Globulin Ratio 1.4 Venous Blood Potassium Urine Color Urine Appearance Urine pH Ur Specific [place] Urine Protein Urine Glucose (UA) Urine Ketones Urine Blood Urine Nitrate Urine Bilirubin Urine Urobilinogen Ur Leukocyte Esterase Urine RBC Urine WBC Ur Epithelial Cells Urine Bacteria Coarse Granular Casts Urine Microalbumin 03/11/17 03/11/17 03/11/17 05:30 09:11 12:23 WBC RBC Hgb Hct MCV MCH MCHC RDW Plt Count Manual Plt Count 25 L* Platelet Evaluation PT 19.1 H INR 1.77 H APTT 33.4 H Fibrinogen 289.8 Fibrin Degrad Products D-Dimer, Quantitative 10.00 H pCO2 26 L pO2 150.0 H HCO3 15.4 L ABG pH 7.38 ABG Total CO2 16.2 L ABG O2 Saturation 99.8 H ABG O2 Content 12.8 L ABG Base Excess -8.6 L ABG Hemoglobin 9.2 L ABG Carboxyhemoglobin 2.3 H POC ABG HHb (Measured) 0.2 ABG Methemoglobin 0.7 ABG O2 Capacity 12.8 L VBG pH VBG pCO2 VBG HCO3 VBG Total CO2 VBG O2 Sat (Calc) VBG Base Excess VBG Potassium Hgb O2 Saturation 96.8 Sodium Chloride Glucose Lactate FiO2 50.0 Potassium Carbon Dioxide Anion Gap BUN Creatinine Est GFR ( Amer) Est GFR (Non-Af Amer) POC Glucose (mg/dL) Random Glucose Calcium Phosphorus Magnesium Total Bilirubin AST ALT Alkaline Phosphatase Total Creatine Kinase Total Protein Albumin Globulin Albumin/Globulin Ratio Venous Blood Potassium Urine Color Urine Appearance Urine pH Ur Specific [place] Urine Protein Urine Glucose (UA) Urine Ketones Urine Blood Urine Nitrate Urine Bilirubin Urine Urobilinogen Ur Leukocyte Esterase Urine RBC Urine WBC Ur Epithelial Cells Urine Bacteria Coarse Granular Casts Urine Microalbumin 03/11/17 03/11/17 12:23 12:23 WBC RBC Hgb Hct MCV MCH MCHC RDW Plt Count Manual Plt Count Platelet Evaluation PT INR APTT Fibrinogen Fibrin Degrad Products >40 ug/ml D-Dimer, Quantitative pCO2 pO2 HCO3 ABG pH ABG Total CO2 ABG O2 Saturation ABG O2 Content ABG Base Excess ABG Hemoglobin ABG Carboxyhemoglobin POC ABG HHb (Measured) ABG Methemoglobin ABG O2 Capacity VBG pH VBG pCO2 VBG HCO3 VBG Total CO2 VBG O2 Sat (Calc) VBG Base Excess VBG Potassium Hgb O2 Saturation Sodium 137 Chloride 105 Glucose Lactate FiO2 Potassium 4.5 Carbon Dioxide 18 L Anion Gap 19 BUN 61 H Creatinine 2.5 H Est GFR ( Amer) 24 Est GFR (Non-Af Amer) 20 POC Glucose (mg/dL) Random Glucose 202 H Calcium 7.5 L Phosphorus 6.6 H Magnesium 2.6 H Total Bilirubin 2.7 H AST 617 H ALT 1414 H Alkaline Phosphatase 125 Total Creatine Kinase 222 Total Protein 4.8 L Albumin 2.8 L Globulin 2.0 Albumin/Globulin Ratio 1.4 Venous Blood Potassium Urine Color Urine Appearance Urine pH Ur Specific [place] Urine Protein Urine Glucose (UA) Urine Ketones Urine Blood Urine Nitrate Urine Bilirubin Urine Urobilinogen Ur Leukocyte Esterase Urine RBC Urine WBC Ur Epithelial Cells Urine Bacteria Coarse Granular Casts Urine Microalbumin Fingerstick Blood Sugar Results: 179 Review of Systems - Review of Systems Systems not reviewed;Unavailable: Intubated Assessment/Plan - Assessment and Plan (Free Text) Assessment: This is a 61 yo AA with PMH of stage IIIB small cell lung cancer (maintenance chemo with Alimta, improving PET scan), CAD s/p stent, Parox afib/flutter, COPD on 3L home O2, PAD s/p angioplasty, severe pulm HTN, cardiomyopathy, and h/o benign brain tumor s/p resection and off seizure ppx (self-discontinued) who presented initially 2/2 AMS/Syncope/witnessed seizure, and now is in the ICU for septic vs cardiogenic shock, worsening mentation requiring intubation for airway protection in setting of worsening metabolic alkalosis with anion gap, and worsening renal failure started on HD. Findings today concerning for possible ITP vs TTP. Plan: Neuro -Intubated and sedated on Precedex, intermittently breaks sedation and fights against vent/restraints, otherwise only withdraws from painful stimuli -Maintain normothermia; Fever of 104F reported yesterday, Tmax today 100F; PRN tylenol, can order Ofirimev if to relief with PO tylenol -Head CT on admit notable for chronic frontal bilateral encephalomalacia, no acute findings -As per Neuro, repeat Head CT when patient stable -Hx of seizure disorder, patient admitted to non-compliance with home Keppra and Phenytoin on admission due to lack of seizures for years, thought she was "better"; continue Keppra and Dilantin as per Neuro -Neuro (Dr. Worthy) following, appreciate all recs Cardio: -On dual pressor support to maintain MAP > 65, cardiogenic shock vs septic shock vs hypovolemic shock -On Vasopresion 0.04, weaning down Levophed as tolerated; as per Pulm and Nephro , patient's baseline SBP 80's-90's -As per Cardio and Pulm (Dr. Martinez), pt started on lower dose Dobutamine drip, still became tachycardic to 140's, remained so despite Amiodarone drip, dobutamine discontinued -Tachycardia resolved, HR now 80's-90's -Verapamil PRN for tachycardia -On stress dose steroids, solucortef 100mg q8h -s/p 1L NS bolus x2 to improve BP and wean Levophed Pulm: -Satting on on Vent, tolerated PS trial well -ABG this AM reviewed: pH 7.38, pco2 25, p02 150, hco3 15.2, on 50% FiO2 -Chest CT after intubation concerning for possible left lower lobe infiltrate, Procal today 7.73 (was 5.58) -Covered empirically with Merrem, s/p 1x Daptomycin as per ID GI: -NPO -Protonix for GI ppx -Elevated LFTs, AST improved to 668 (was 1001), ALT unchanged at 1499, TBili increased to 2.6 (was 2.2); may be shock liver given persistent hypotension requiring pressor support vs congestive hepatopathy 2/2 severe pulmonary HTN with RV backup -CT abd/pelvis negative for acute findings, no abscesses noted Renal: -monitor and replete electrolytes as needed -Cr improved to 2.5 -s/p 2L NS, maintain euvolemia and euglycemia -s/p HD again last night, as per Nephro -Nephro (Dr. Cervantes) following, appreciate all recs Heme: -Hgb from 10.6 to 9.9 -platelets decreased to 19 from 52, manual count 25, no active bleed noted; heparin stopped for possible HIT, HIT panel sent -INR increased to 1.77, D-dimer elevated, Fibrinogen 289.8, Fibrin degradation productions > 40, Leukopenic at 3.3 -Concern for possible ITP vs TTP vs HIT; peripheral smear obtained and reviewed by pathology, no schistocytosis -Avoid AC in low platelet and elevated INR, concerning for bleed risk, SCDs for DVT ppx -If positive for HIT, will need agatroban drip due to risk for paradoxical hypercoagulability ID -On Merrem, S/p Daptomycin x1 as per ID -Procal today 7.73 (was 5.58) -WBCs 3.3, was 7.5 -Concern for possible ITP vs TTP vs HIT; peripheral smear obtained and reviewed by pathology, no schistocytosis -ID following, appreciate all recs -All blood, urine, and sputum cx negative thus far, last set obtained 03/10 Dispo: ICU, intubated and ventilated, HD as per Nephro, Pressor support but attempting to wean Levophed FEN: NPO, s/p 2L NS, 2g in NS Mag x1 Access: Peripheral IVs, Temporary dialysis cath R groin, R axillary Arterial line Consults: Cardio, ID, Nephro, Heme-onc, Neuro, Palliative, IR (Signed off) Ppx: Protonix for GI, SCDs for DVT Code Status: DNR, as per adult children regarding patient's stated wishes Patient seen, reviewed, and discussed with attending, Dr. Mendoza. <Reji VILLANUEVA,Inabeatriz H - Last Filed: 03/11/17 18:45> CCU Objective - Vital Signs / Intake & Output Vital Signs (Last 4 hours): Vital Signs BP 03/11/17 14:49 103/62 Intake and Output (Last 8hrs): Intake & Output 03/11/17 03/11/17 03/11/17 06:59 14:59 22:59 Intake Total 1894 100 Output Total 300 Balance 1594 100 Weight 222 lb 3.2 oz 233 lb 11.04 oz Intake: IV 1648 100 amio 234 levo 535 precedex 242 vaso 144 Oral 0 Tube Feeding 0 TPN/PPN 0 Blood Product 0 Lipid 0 Albumin 0 Other 246 Output: Urine 300 Urethral ([place]) 300 Stool 0 Urine/Stool Mix 0 Emesis 0 Oral Regurgitation 0 Other 0 Other: # Voids Urethral ([place]) 0 # Bowel Movements 0 - Medications Active Medications: Active Medications Generic Name Dose Route Start Last Admin Trade Name Freq PRN Reason Stop Dose Admin Acetaminophen 650 mg 03/10/17 06:18 03/11/17 04:49 Tylenol 650mg/20.3ml Solution Ud GT 650 mg Q4H PRN Administration Fever >100.4 F Albuterol/Ipratropium 3 ml 03/06/17 15:09 03/11/17 13:46 Duoneb 3 Mg/0.5 Mg (3 Ml) Ud IH 3 ml Q2H PRN Administration Shortness of Breath Atenolol 12.5 mg 03/07/17 10:00 03/08/17 09:33 Tenormin PO Not Given BID DANICA Chlorhexidine Gluconate 15 ml 03/08/17 20:00 03/11/17 17:30 Peridex PO 1 applic Q4 DANICA Administration Digoxin 0.125 mg 03/07/17 10:00 03/07/17 09:43 Lanoxin PO 0.125 mg MWF DANICA Administration Heparin Sodium (Porcine) 5,000 units 03/06/17 22:00 03/10/17 05:52 Heparin SC 5,000 units Q8 DANICA Administration Protocol Hydrocortisone Sodium Succinate 100 mg 03/08/17 16:15 03/11/17 14:48 Solu-Cortef IVP 100 mg Q8 DANICA Administration Levetiracetam 500 mg in 100 mls @ 400 mls/hr 03/06/17 22:00 03/11/17 10:00 Keppra 500mg Ivpb IVPB 400 mls/hr Q12 DANICA Administration Dexmedetomidine HCl 400 mcg in 100 mls @ 4.468 mls/hr 03/07/17 17:23 08:38 Precedex 4 Mcg/Ml (100 Ml) IV 1 mcg/kg/hr .[id number] PRN 22.34 mls/hr Anxiety Administration Protocol 0.2 MCG/KG/HR Norepinephrine Bitartrate 8 mg 258 mls @ 77.4 mls/hr 03/08/17 02:30 03/11/17 06:13 / Sodium Chloride IV 40 mcg/min .[id number] DANICA 77.4 mls/hr Protocol Administration 40 MCG/MIN Meropenem 500 mg/ Sodium 100 mls @ 100 mls/hr 03/08/17 12:15 03/11/17 12:10 Chloride IVPB 03/15/17 12:16 100 mls/hr Q12 DANICA Administration Protocol Dextrose 500 mls @ 30 mls/hr 03/08/17 18:43 03/08/17 18:55 Dextrose 10% In Water IV 30 mls/hr .[id number] DANICA Administration Amiodarone HCl/Dextrose 360 mg in 200 mls @ 16.667 mls/hr 03/09/17 15:15 02/16 20:08 Nexterone 360 Mg In D5w 200 Ml (Premix) IV 16.667 mls/hr .Q12H DANICA Administration Protocol 0.5 MG/MIN Vasopressin 20 units/ Dextrose 101 mls @ 12.12 mls/hr 03/10/17 11:39 14:49 IV 12.12 mls/hr .[id number] DANICA Administration Protocol 0.04 U/MIN Dobutamine HCl/Dextrose 500 mg in 250 mls @ 6.702 mls/hr 03/10/17 18:18 03/10 20:07 Dobutamine/Dextrose 5% 500mg/250ml IV 6.702 mls/hr .Q24H PRN Administration TITRATE PER PROTOCOL Protocol 2.5 MCG/KG/MIN Lorazepam 2 mg 03/06/17 19:16 03/09/17 01:53 Ativan IVP 2 mg Q6H PRN Administration Anxiety Protocol Ondansetron HCl 4 mg 03/06/17 16:03 Zofran Inj IVP Q4H PRN Nausea/Vomiting Pantoprazole Sodium 40 mg 03/07/17 10:00 03/11/17 10:04 Protonix Inj IVP 40 mg DAILY DANICA Administration Phenytoin 100 mg 03/09/17 10:32 03/11/17 14:48 Dilantin PO 100 mg Q8 DANICA Administration Verapamil HCl 2.5 mg 03/11/17 11:00 03/11/17 11:23 Verapamil Inj IVP 2.5 mg Q6H PRN Administration fpr herat rate >130 - Patient Studies Lab Studies: Microbiology Studies 03/10/17 20:00 Gram Stain - Final Sputum 03/10/17 14:15 Urine Culture - Final Urine No Growth (<1,000 CFU/ML) 03/10/17 08:00 Blood Culture - Preliminary Blood-Venous NO GROWTH AFTER 24 HOURS 03/10/17 08:00 Blood Culture - Preliminary Blood-Venous NO GROWTH AFTER 24 HOURS Lab Studies 03/11/17 03/11/17 03/11/17 Range/Units 15:43 12:23 12:23 WBC (4.5-11.0) 10^3/ul RBC (3.5-6.1) 10^6/uL Hgb (12.0-16.0) g/dL Hct (36.0-48.0) % MCV (80.0-105.0) fl MCH (25.0-35.0) pg MCHC (31.0-37.0) g/dl RDW (11.5-14.5) % Plt Count (120.0-450.0) 10^3/uL Manual Plt Count (120-450) K/mm3 Platelet Evaluation (NORMAL) PT (9.9-11.8) Seconds INR (0.93-1.08) APTT (23.7-30.8) Seconds Fibrinogen (187-400) mg/dL Fibrin Degrad Products (< 10 ug/mL) D-Dimer, Quantitative (0-0.50) mg/L FEU pCO2 (35-45) mm/Hg pO2 (30-55) mm/Hg HCO3 (21-28) mmol/L ABG pH (7.35-7.45) ABG Total CO2 (22-28) mmol.L ABG O2 Saturation (95-98) % ABG O2 Content (15-23) ML/dl ABG Base Excess (-2.0-3.0) mmol/L ABG Hemoglobin (11.7-17.4) g/dL ABG Carboxyhemoglobin (0.5-1.5) % POC ABG HHb (Measured) (0-5) % ABG Methemoglobin (0.0-3.0) % ABG O2 Capacity (16-24) mL/dl VBG pH (7.32-7.43) VBG pCO2 (40-60) VBG HCO3 (21-28) mmol/l VBG Total CO2 (22-28) mmol.L VBG O2 Sat (Calc) (40-65) % VBG Base Excess (0.0-2.0) mmol/L VBG Potassium (3.6-5.2) mmol/L Hgb O2 Saturation (95.0-98.0) % Sodium 137 (132-148) mmol/L Chloride 105 (98-107) mmol/L Glucose (65-105) mg/dl Lactate (0.7-2.1) mmol/L FiO2 % Potassium 4.5 (3.6-5.0) mmol/L Carbon Dioxide 18 L (21-33) mmol/L Anion Gap 19 (10-20) BUN 61 H (7-21) mg/dL Creatinine 2.5 H (0.7-1.2) mg/dL Est GFR ( Amer) 24 Est GFR (Non-Af Amer) 20 POC Glucose (mg/dL) 197 H (65-110) mg/dL Random Glucose 202 H (70-110) mg/dL Calcium 7.5 L (8.4-10.5) mg/dL Phosphorus 6.6 H (2.5-4.5) mg/dL Magnesium 2.6 H (1.7-2.2) mg/dL Total Bilirubin 2.7 H (0.2-1.3) mg/dL AST 617 H (14-36) U/L ALT 1414 H (7-56) U/L Alkaline Phosphatase 125 (38-126) U/L Total Creatine Kinase 222 (35-230) U/L Total Protein 4.8 L (5.8-8.3) g/dL Albumin 2.8 L (3.0-4.8) g/dL Globulin 2.0 gm/dL Albumin/Globulin Ratio 1.4 (1.1-1.8) Procalcitonin 7.73 H (0.19-0.49) NG/ML Calcium (PTH Intact) (8.6-10.4) mg/dL PTH w/Ion &Tot Calcium (14-64) pg/mL Venous Blood Potassium (3.6-5.2) mmol/L 03/11/17 03/11/17 03/11/17 Range/Units 12:23 12:23 09:11 WBC (4.5-11.0) 10^3/ul RBC (3.5-6.1) 10^6/uL Hgb (12.0-16.0) g/dL Hct (36.0-48.0) % MCV (80.0-105.0) fl MCH (25.0-35.0) pg MCHC (31.0-37.0) g/dl RDW (11.5-14.5) % Plt Count (120.0-450.0) 10^3/uL Manual Plt Count 25 L* (120-450) K/mm3 Platelet Evaluation (NORMAL) PT 19.1 H (9.9-11.8) Seconds INR 1.77 H (0.93-1.08) APTT 33.4 H (23.7-30.8) Seconds Fibrinogen 289.8 (187-400) mg/dL Fibrin Degrad Products >40 ug/ml (< 10 ug/mL) D-Dimer, Quantitative 10.00 H (0-0.50) mg/L FEU pCO2 (35-45) mm/Hg pO2 (30-55) mm/Hg HCO3 (21-28) mmol/L ABG pH (7.35-7.45) ABG Total CO2 (22-28) mmol.L ABG O2 Saturation (95-98) % ABG O2 Content (15-23) ML/dl ABG Base Excess (-2.0-3.0) mmol/L ABG Hemoglobin (11.7-17.4) g/dL ABG Carboxyhemoglobin (0.5-1.5) % POC ABG HHb (Measured) (0-5) % ABG Methemoglobin (0.0-3.0) % ABG O2 Capacity (16-24) mL/dl VBG pH (7.32-7.43) VBG pCO2 (40-60) VBG HCO3 (21-28) mmol/l VBG Total CO2 (22-28) mmol.L VBG O2 Sat (Calc) (40-65) % VBG Base Excess (0.0-2.0) mmol/L VBG Potassium (3.6-5.2) mmol/L Hgb O2 Saturation (95.0-98.0) % Sodium (132-148) mmol/L Chloride (98-107) mmol/L Glucose (65-105) mg/dl Lactate (0.7-2.1) mmol/L FiO2 % Potassium (3.6-5.0) mmol/L Carbon Dioxide (21-33) mmol/L Anion Gap (10-20) BUN (7-21) mg/dL Creatinine (0.7-1.2) mg/dL Est GFR ( Amer) Est GFR (Non-Af Amer) POC Glucose (mg/dL) (65-110) mg/dL Random Glucose (70-110) mg/dL Calcium (8.4-10.5) mg/dL Phosphorus (2.5-4.5) mg/dL Magnesium (1.7-2.2) mg/dL Total Bilirubin (0.2-1.3) mg/dL AST (14-36) U/L ALT (7-56) U/L Alkaline Phosphatase (38-126) U/L Total Creatine Kinase (35-230) U/L Total Protein (5.8-8.3) g/dL Albumin (3.0-4.8) g/dL Globulin gm/dL Albumin/Globulin Ratio (1.1-1.8) Procalcitonin (0.19-0.49) NG/ML Calcium (PTH Intact) (8.6-10.4) mg/dL PTH w/Ion &Tot Calcium (14-64) pg/mL Venous Blood Potassium (3.6-5.2) mmol/L 03/11/17 03/11/17 03/11/17 Range/Units 05:30 05:30 05:30 WBC 3.3 L D (4.5-11.0) 10^3/ul RBC 3.71 (3.5-6.1) 10^6/uL Hgb 9.9 L (12.0-16.0) g/dL Hct 30.5 L (36.0-48.0) % MCV 82.2 (80.0-105.0) fl MCH 26.7 (25.0-35.0) pg MCHC 32.5 (31.0-37.0) g/dl RDW 17.7 H (11.5-14.5) % Plt Count 19 L* (120.0-450.0) 10^3/uL Manual Plt Count (120-450) K/mm3 Platelet Evaluation Low (NORMAL) PT (9.9-11.8) Seconds INR (0.93-1.08) APTT (23.7-30.8) Seconds Fibrinogen (187-400) mg/dL Fibrin Degrad Products (< 10 ug/mL) D-Dimer, Quantitative (0-0.50) mg/L FEU pCO2 26 L (35-45) mm/Hg pO2 150.0 H (30-55) mm/Hg HCO3 15.4 L (21-28) mmol/L ABG pH 7.38 (7.35-7.45) ABG Total CO2 16.2 L (22-28) mmol.L ABG O2 Saturation 99.8 H (95-98) % ABG O2 Content 12.8 L (15-23) ML/dl ABG Base Excess -8.6 L (-2.0-3.0) mmol/L ABG Hemoglobin 9.2 L (11.7-17.4) g/dL ABG Carboxyhemoglobin 2.3 H (0.5-1.5) % POC ABG HHb (Measured) 0.2 (0-5) % ABG Methemoglobin 0.7 (0.0-3.0) % ABG O2 Capacity 12.8 L (16-24) mL/dl VBG pH (7.32-7.43) VBG pCO2 (40-60) VBG HCO3 (21-28) mmol/l VBG Total CO2 (22-28) mmol.L VBG O2 Sat (Calc) (40-65) % VBG Base Excess (0.0-2.0) mmol/L VBG Potassium (3.6-5.2) mmol/L Hgb O2 Saturation 96.8 (95.0-98.0) % Sodium 137 (132-148) mmol/L Chloride 104 (98-107) mmol/L Glucose (65-105) mg/dl Lactate (0.7-2.1) mmol/L FiO2 50.0 % Potassium 4.7 (3.6-5.0) mmol/L Carbon Dioxide 20 L (21-33) mmol/L Anion Gap 18 (10-20) BUN 57 H (7-21) mg/dL Creatinine 2.5 H (0.7-1.2) mg/dL Est GFR ( Amer) 24 Est GFR (Non-Af Amer) 20 POC Glucose (mg/dL) (65-110) mg/dL Random Glucose 196 H (70-110) mg/dL Calcium 7.7 L (8.4-10.5) mg/dL Phosphorus (2.5-4.5) mg/dL Magnesium (1.7-2.2) mg/dL Total Bilirubin 2.6 H (0.2-1.3) mg/dL AST 688 H D (14-36) U/L ALT 1499 H (7-56) U/L Alkaline Phosphatase 113 (38-126) U/L Total Creatine Kinase (35-230) U/L Total Protein 4.6 L (5.8-8.3) g/dL Albumin 2.7 L (3.0-4.8) g/dL Globulin 2.0 gm/dL Albumin/Globulin Ratio 1.4 (1.1-1.8) Procalcitonin (0.19-0.49) NG/ML Calcium (PTH Intact) (8.6-10.4) mg/dL PTH w/Ion &Tot Calcium (14-64) pg/mL Venous Blood Potassium (3.6-5.2) mmol/L 03/11/17 03/10/17 03/10/17 Range/Units 03:54 23:49 22:30 WBC (4.5-11.0) 10^3/ul RBC (3.5-6.1) 10^6/uL Hgb (12.0-16.0) g/dL Hct (36.0-48.0) % MCV (80.0-105.0) fl MCH (25.0-35.0) pg MCHC (31.0-37.0) g/dl RDW (11.5-14.5) % Plt Count (120.0-450.0) 10^3/uL Manual Plt Count (120-450) K/mm3 Platelet Evaluation (NORMAL) PT (9.9-11.8) Seconds INR (0.93-1.08) APTT (23.7-30.8) Seconds Fibrinogen (187-400) mg/dL Fibrin Degrad Products (< 10 ug/mL) D-Dimer, Quantitative (0-0.50) mg/L FEU pCO2 (35-45) mm/Hg pO2 32 (30-55) mm/Hg HCO3 (21-28) mmol/L ABG pH (7.35-7.45) ABG Total CO2 (22-28) mmol.L ABG O2 Saturation (95-98) % ABG O2 Content (15-23) ML/dl ABG Base Excess (-2.0-3.0) mmol/L ABG Hemoglobin (11.7-17.4) g/dL ABG Carboxyhemoglobin (0.5-1.5) % POC ABG HHb (Measured) (0-5) % ABG Methemoglobin (0.0-3.0) % ABG O2 Capacity (16-24) mL/dl VBG pH 7.26 L (7.32-7.43) VBG pCO2 44.0 (40-60) VBG HCO3 19.7 L (21-28) mmol/l VBG Total CO2 21.1 L (22-28) mmol.L VBG O2 Sat (Calc) 57.8 (40-65) % VBG Base Excess -7.2 L (0.0-2.0) mmol/L VBG Potassium 4.5 (3.6-5.2) mmol/L Hgb O2 Saturation (95.0-98.0) % Sodium 134.0 (132-148) mmol/L Chloride 104.0 (98-107) mmol/L Glucose 191 H (65-105) mg/dl Lactate 3.5 H (0.7-2.1) mmol/L FiO2 21.0 % Potassium (3.6-5.0) mmol/L Carbon Dioxide (21-33) mmol/L Anion Gap (10-20) BUN (7-21) mg/dL Creatinine (0.7-1.2) mg/dL Est GFR ( Amer) Est GFR (Non-Af Amer) POC Glucose (mg/dL) 179 H 180 H (65-110) mg/dL Random Glucose (70-110) mg/dL Calcium (8.4-10.5) mg/dL Phosphorus (2.5-4.5) mg/dL Magnesium (1.7-2.2) mg/dL Total Bilirubin (0.2-1.3) mg/dL AST (14-36) U/L ALT (7-56) U/L Alkaline Phosphatase (38-126) U/L Total Creatine Kinase (35-230) U/L Total Protein (5.8-8.3) g/dL Albumin (3.0-4.8) g/dL Globulin gm/dL Albumin/Globulin Ratio (1.1-1.8) Procalcitonin (0.19-0.49) NG/ML Calcium (PTH Intact) (8.6-10.4) mg/dL PTH w/Ion &Tot Calcium (14-64) pg/mL Venous Blood Potassium 4.5 (3.6-5.2) mmol/L 03/10/17 03/10/17 03/07/17 Range/Units 19:35 18:59 20:12 WBC (4.5-11.0) 10^3/ul RBC (3.5-6.1) 10^6/uL Hgb (12.0-16.0) g/dL Hct (36.0-48.0) % MCV (80.0-105.0) fl MCH (25.0-35.0) pg MCHC (31.0-37.0) g/dl RDW (11.5-14.5) % Plt Count (120.0-450.0) 10^3/uL Manual Plt Count (120-450) K/mm3 Platelet Evaluation (NORMAL) PT (9.9-11.8) Seconds INR (0.93-1.08) APTT (23.7-30.8) Seconds Fibrinogen (187-400) mg/dL Fibrin Degrad Products (< 10 ug/mL) D-Dimer, Quantitative (0-0.50) mg/L FEU pCO2 (35-45) mm/Hg pO2 38 (30-55) mm/Hg HCO3 (21-28) mmol/L ABG pH (7.35-7.45) ABG Total CO2 (22-28) mmol.L ABG O2 Saturation (95-98) % ABG O2 Content (15-23) ML/dl ABG Base Excess (-2.0-3.0) mmol/L ABG Hemoglobin (11.7-17.4) g/dL ABG Carboxyhemoglobin (0.5-1.5) % POC ABG HHb (Measured) (0-5) % ABG Methemoglobin (0.0-3.0) % ABG O2 Capacity (16-24) mL/dl VBG pH 7.23 L (7.32-7.43) VBG pCO2 54.0 (40-60) VBG HCO3 22.6 (21-28) mmol/l VBG Total CO2 24.3 (22-28) mmol.L VBG O2 Sat (Calc) 66.3 H (40-65) % VBG Base Excess -5.5 L (0.0-2.0) mmol/L VBG Potassium 4.0 (3.6-5.2) mmol/L Hgb O2 Saturation (95.0-98.0) % Sodium 135.0 (132-148) mmol/L Chloride 104.0 (98-107) mmol/L Glucose 146 H (65-105) mg/dl Lactate 3.0 H (0.7-2.1) mmol/L FiO2 21.0 % Potassium (3.6-5.0) mmol/L Carbon Dioxide (21-33) mmol/L Anion Gap (10-20) BUN (7-21) mg/dL Creatinine (0.7-1.2) mg/dL Est GFR ( Amer) Est GFR (Non-Af Amer) POC Glucose (mg/dL) 122 H (65-110) mg/dL Random Glucose (70-110) mg/dL Calcium (8.4-10.5) mg/dL Phosphorus (2.5-4.5) mg/dL Magnesium (1.7-2.2) mg/dL Total Bilirubin (0.2-1.3) mg/dL AST (14-36) U/L ALT (7-56) U/L Alkaline Phosphatase (38-126) U/L Total Creatine Kinase (35-230) U/L Total Protein (5.8-8.3) g/dL Albumin (3.0-4.8) g/dL Globulin gm/dL Albumin/Globulin Ratio (1.1-1.8) Procalcitonin (0.19-0.49) NG/ML Calcium (PTH Intact) 8.0 L (8.6-10.4) mg/dL PTH w/Ion &Tot Calcium 422 H (14-64) pg/mL Venous Blood Potassium 4.0 (3.6-5.2) mmol/L Laboratory Results - last 24 hr 03/07/17 03/10/17 03/10/17 20:12 18:59 19:35 WBC RBC Hgb Hct MCV MCH MCHC RDW Plt Count Manual Plt Count Platelet Evaluation PT INR APTT Fibrinogen Fibrin Degrad Products D-Dimer, Quantitative pCO2 pO2 38 HCO3 ABG pH ABG Total CO2 ABG O2 Saturation ABG O2 Content ABG Base Excess ABG Hemoglobin ABG Carboxyhemoglobin POC ABG HHb (Measured) ABG Methemoglobin ABG O2 Capacity VBG pH 7.23 L VBG pCO2 54.0 VBG HCO3 22.6 VBG Total CO2 24.3 VBG O2 Sat (Calc) 66.3 H VBG Base Excess -5.5 L VBG Potassium 4.0 Hgb O2 Saturation Sodium 135.0 Chloride 104.0 Glucose 146 H Lactate 3.0 H FiO2 21.0 Potassium Carbon Dioxide Anion Gap BUN Creatinine Est GFR ( Amer) Est GFR (Non-Af Amer) POC Glucose (mg/dL) 122 H Random Glucose Calcium Phosphorus Magnesium Total Bilirubin AST ALT Alkaline Phosphatase Total Creatine Kinase Total Protein Albumin Globulin Albumin/Globulin Ratio Procalcitonin Calcium (PTH Intact) 8.0 L PTH w/Ion &Tot Calcium 422 H Venous Blood Potassium 4.0 03/10/17 03/10/17 03/11/17 22:30 23:49 03:54 WBC RBC Hgb Hct MCV MCH MCHC RDW Plt Count Manual Plt Count Platelet Evaluation PT INR APTT Fibrinogen Fibrin Degrad Products D-Dimer, Quantitative pCO2 pO2 32 HCO3 ABG pH ABG Total CO2 ABG O2 Saturation ABG O2 Content ABG Base Excess ABG Hemoglobin ABG Carboxyhemoglobin POC ABG HHb (Measured) ABG Methemoglobin ABG O2 Capacity VBG pH 7.26 L VBG pCO2 44.0 VBG HCO3 19.7 L VBG Total CO2 21.1 L VBG O2 Sat (Calc) 57.8 VBG Base Excess -7.2 L VBG Potassium 4.5 Hgb O2 Saturation Sodium 134.0 Chloride 104.0 Glucose 191 H Lactate 3.5 H FiO2 21.0 Potassium Carbon Dioxide Anion Gap BUN Creatinine Est GFR ( Amer) Est GFR (Non-Af Amer) POC Glucose (mg/dL) 180 H 179 H Random Glucose Calcium Phosphorus Magnesium Total Bilirubin AST ALT Alkaline Phosphatase Total Creatine Kinase Total Protein Albumin Globulin Albumin/Globulin Ratio Procalcitonin Calcium (PTH Intact) PTH w/Ion &Tot Calcium Venous Blood Potassium 4.5 03/11/17 03/11/17 03/11/17 05:30 05:30 05:30 WBC 3.3 L D RBC 3.71 Hgb 9.9 L Hct 30.5 L MCV 82.2 MCH 26.7 MCHC 32.5 RDW 17.7 H Plt Count 19 L* Manual Plt Count Platelet Evaluation Low PT INR APTT Fibrinogen Fibrin Degrad Products D-Dimer, Quantitative pCO2 26 L pO2 150.0 H HCO3 15.4 L ABG pH 7.38 ABG Total CO2 16.2 L ABG O2 Saturation 99.8 H ABG O2 Content 12.8 L ABG Base Excess -8.6 L ABG Hemoglobin 9.2 L ABG Carboxyhemoglobin 2.3 H POC ABG HHb (Measured) 0.2 ABG Methemoglobin 0.7 ABG O2 Capacity 12.8 L VBG pH VBG pCO2 VBG HCO3 VBG Total CO2 VBG O2 Sat (Calc) VBG Base Excess VBG Potassium Hgb O2 Saturation 96.8 Sodium 137 Chloride 104 Glucose Lactate FiO2 50.0 Potassium 4.7 Carbon Dioxide 20 L Anion Gap 18 BUN 57 H Creatinine 2.5 H Est GFR ( Amer) 24 Est GFR (Non-Af Amer) 20 POC Glucose (mg/dL) Random Glucose 196 H Calcium 7.7 L Phosphorus Magnesium Total Bilirubin 2.6 H AST 688 H D ALT 1499 H Alkaline Phosphatase 113 Total Creatine Kinase Total Protein 4.6 L Albumin 2.7 L Globulin 2.0 Albumin/Globulin Ratio 1.4 Procalcitonin Calcium (PTH Intact) PTH w/Ion &Tot Calcium Venous Blood Potassium 03/11/17 03/11/17 03/11/17 09:11 12:23 12:23 WBC RBC Hgb Hct MCV MCH MCHC RDW Plt Count Manual Plt Count 25 L* Platelet Evaluation PT 19.1 H INR 1.77 H APTT 33.4 H Fibrinogen 289.8 Fibrin Degrad Products >40 ug/ml D-Dimer, Quantitative 10.00 H pCO2 pO2 HCO3 ABG pH ABG Total CO2 ABG O2 Saturation ABG O2 Content ABG Base Excess ABG Hemoglobin ABG Carboxyhemoglobin POC ABG HHb (Measured) ABG Methemoglobin ABG O2 Capacity VBG pH VBG pCO2 VBG HCO3 VBG Total CO2 VBG O2 Sat (Calc) VBG Base Excess VBG Potassium Hgb O2 Saturation Sodium Chloride Glucose Lactate FiO2 Potassium Carbon Dioxide Anion Gap BUN Creatinine Est GFR ( Amer) Est GFR (Non-Af Amer) POC Glucose (mg/dL) Random Glucose Calcium Phosphorus Magnesium Total Bilirubin AST ALT Alkaline Phosphatase Total Creatine Kinase Total Protein Albumin Globulin Albumin/Globulin Ratio Procalcitonin Calcium (PTH Intact) PTH w/Ion &Tot Calcium Venous Blood Potassium 03/11/17 03/11/17 03/11/17 12:23 12:23 15:43 WBC RBC Hgb Hct MCV MCH MCHC RDW Plt Count Manual Plt Count Platelet Evaluation PT INR APTT Fibrinogen Fibrin Degrad Products D-Dimer, Quantitative pCO2 pO2 HCO3 ABG pH ABG Total CO2 ABG O2 Saturation ABG O2 Content ABG Base Excess ABG Hemoglobin ABG Carboxyhemoglobin POC ABG HHb (Measured) ABG Methemoglobin ABG O2 Capacity VBG pH VBG pCO2 VBG HCO3 VBG Total CO2 VBG O2 Sat (Calc) VBG Base Excess VBG Potassium Hgb O2 Saturation Sodium 137 Chloride 105 Glucose Lactate FiO2 Potassium 4.5 Carbon Dioxide 18 L Anion Gap 19 BUN 61 H Creatinine 2.5 H Est GFR ( Amer) 24 Est GFR (Non-Af Amer) 20 POC Glucose (mg/dL) 197 H Random Glucose 202 H Calcium 7.5 L Phosphorus 6.6 H Magnesium 2.6 H Total Bilirubin 2.7 H AST 617 H ALT 1414 H Alkaline Phosphatase 125 Total Creatine Kinase 222 Total Protein 4.8 L Albumin 2.8 L Globulin 2.0 Albumin/Globulin Ratio 1.4 Procalcitonin 7.73 H Calcium (PTH Intact) PTH w/Ion &Tot Calcium Venous Blood Potassium Attending/Attestation - Attestation I have personally seen and examined this patient.: Yes I have fully participated in the care of the patient.: Yes I have reviewed all pertinent clinical information: Yes Notes (Text): 03/11/17 18:42 61 y/o F w/ Multiorgan failure Intubated / sedated on precedex. Mental status not improved. Shock , unclear cause. Known RV failure . On Levophed- would help RV coupling and would serve an ionotrope . No need for Dobutamine. Dobutamine was causing further tachycardia and hypotension. New pancytopenia noted. No schistocytes, does have AMS, Renal failure and Thrmobocytopenia . TTP differential entertained. Case d/w nephrology . Will try to increase stroke volume w/ 2L of Normal saline and wean Levophed as needed to keep MAP> 60 or SBP> 90. Poor prognosis DNR cc time 65 min
--- NOTE | 2017-03-11 15:00 | PN ---
DATE: 03/11/2017 SUBJECTIVE: The patient is in bed, in no acute distress; however, the patient is intubated on the ventilator and overall in chronically poor care and state. PHYSICAL EXAMINATION: VITAL SIGNS: On exam, the patient's temperature is 100, T-max yesterday was 101, blood pressure is 130/70, respiratory rate on vent, and heart rate of 91. HEENT: ET tube in place. NECK: Supple. LUNGS: Decreased breath sounds. HEART: Normal S1 and S2. ABDOMEN: Soft, nontender. LABORATORY DATA: Reveals a white count of 3.3, hemoglobin of 9, platelets of 19,000. Chemistries reveals a BUN of 61, creatinine of 2.5, the LFTs are elevated and urinalysis is noted. Hepatitis serology is noted. Microbiology reveals a blood and urine cultures are negative. Review of orders reveals the patient to be on daptomycin, was discontinued with one dose was given by Dr. Peterson. The patient is on meropenem. ASSESSMENT AND PLAN: This is a 61-year-old female seen earlier this morning in [facility], bed 5 with severe sepsis and septic shock, most likely cardiogenic shock and left lower lobe healthcare-associated pneumonia with acute hypoxic respiratory failure; severe pulmonary hypertension; chronic renal failure, undergoing dialysis with small cell lung, stage IIIB, status post chemotherapy; had a Port-A-Cath which was a taken out by history, and the patient with chronic obstructive lung disease; atrial fibrillation; peripheral vascular disease, status post femoral stenting, benign brain tumor, status post removal in 2013; seizures disorder; pulmonary hypertension, day #6 of meropenem. All cultures are negative and a creatinine is 2.5. Overall prognosis is quite poor. Delvis Tinsley MD
--- NOTE | 2017-03-11 22:26 | PN ---
PULMONARY CRITICAL CARE PROGRESS NOTE REFERRING PHYSICIAN: Dr. Singh. SUBJECTIVE: Overnight events noted. She was started on dobutamine and amiodarone. Apparently again, heart rate was not able to control, went in to 140 or so. So dobutamine was discontinued and amiodarone was also discontinued. Still on multiple pressors intubated and sedated. Not much ET tube secretion. No hemoptysis, no hematemesis, no hematuria, has anasarca. OBJECTIVE: GENERAL: Unresponsive, on ventilator. VITAL SIGNS: Temperature is 98, heart rate is 91, respiratory rate is 30, blood pressure 103/62, pulse ox 97%, on vent 40% oxygen. HEENT: Moist mucous membrane. ET tube, no much secretion. NECK: Supple. No JVD. LUNGS: Has scattered rhonchi and crackles. HEART: S1 and S2. ABDOMEN: Soft, nondistended. Positive bowel sound. EXTREMITIES: Does have edema. NEUROLOGIC: Unresponsive, on ventilator. MEDICATIONS: She is on Ativan 2 mg IV q.6 hours p.r.n.; IV fluid D10, 30 mL per hour; Dilantin 100 mg q.8 hours; dobutamine placed on hold; DuoNeb q.6 hours p.r.n.; heparin 5000 units subcu q.8 hours; Keppra 500 mg q.12 hours; digoxin 0.125 mg Friday, Friday, and Friday; meropenem 500 mg q.12 hours; amiodarone is on hold; Levophed; Peridex 15 mL q.4 hour; Protonix 40 mg daily; Solu-Cortef 100 mg q.8 hour; Tenormin 12.5 mg twice a day; Tylenol p.r.n.; she is on vasopressin and verapamil p.r.n. basis; Zofran p.r.n. basis. LABORATORY DATA: Shows hemoglobin 9.9, hematocrit 30.5, WBC 3.3, platelet count is 19. D-dimer quantitative is 10. Fibrinogen product is 40. Blood gas shows pH 7.38, pCO2 of 26, O2 of 150. Sodium 137, potassium 4.5, chloride 105, bicarbonate 18, BUN 61, creatinine 2.5, calcium is 7.5, phosphorus 6.6, magnesium 2.6, AST 617, ALT 1414, albumin is 2.8. Chest x-ray done this morning shows right lower lobe infiltrate has little increased. IMPRESSION AND PLAN: Multiorgan failure with respiratory failure, pneumonia, severe pulmonary hypertension, cardiomyopathy, valvular heart disease, chronic obstructive lung disease, unresectable lung cancer, renal failure, anemia, thrombocytopenia, history of paroxysmal atrial fibrillation, does not tolerate dobutamine. Case is tachycardia up to 140. Case discussed with medical coordinator pesticide use, talk to the nursing staff. We will send HIT antibodies, may try to discontinue heparin products. Gastric prophylaxis, continue antibiotics as per infectious disease, continue pressors as-needed basis, renal replacement, keep . Critical care time is more than 35 minutes. Thank you and we will follow with you. Serenity Martinez MD
--- NOTE | 2017-03-11 23:24 | CP.PCM.PN ---
Subjective - Date & Time of Evaluation Date of Evaluation: 03/11/17 Time of Evaluation: 10:00 - Subjective Subjective: Dobutamine again needing to be stopped due to tachycardia; Objective - Vital Signs/Intake and Output Vital Signs (last 24 hours): Temp Pulse Resp BP Pulse Ox 100.0 F H 91 H 26 H 103/62 99 03/11/17 04:49 03/11/17 11:23 03/11/17 06:57 03/11/17 14:49 03/11/17 06:57 Intake and Output: 03/11/17 03/12/17 18:59 06:59 Intake Total 100 8 Balance 100 8 - Medications Medications: Current Medications Acetaminophen (Tylenol 650mg/20.3ml Solution Ud) 650 mg GT Q4H PRN PRN Reason: Fever >100.4 F Last Admin: 03/11/17 04:49 Dose: 650 mg Albuterol/Ipratropium (Duoneb 3 Mg/0.5 Mg (3 Ml) Ud) 3 ml IH Q2H PRN PRN Reason: Shortness of Breath Last Admin: 03/11/17 21:03 Dose: 3 ml Atenolol (Tenormin) 12.5 mg PO BID [facility] Last Admin: 03/08/17 09:33 Dose: Not Given Chlorhexidine Gluconate (Peridex) 15 ml PO Q4 [facility] Last Admin: 03/11/17 21:47 Dose: 1 applic Digoxin (Lanoxin) 0.125 mg PO MWF [facility] Last Admin: 03/07/17 09:43 Dose: 0.125 mg Heparin Sodium (Porcine) (Heparin) 5,000 units SC Q8 DANICA PRN Reason: Protocol Last Admin: 03/10/17 05:52 Dose: 5,000 units Hydrocortisone Sodium Succinate (Solu-Cortef) 100 mg IVP Q8 [facility] Last Admin: 03/11/17 21:51 Dose: 100 mg Levetiracetam (Keppra 500mg Ivpb) 500 mg in 100 mls @ 400 mls/hr IVPB Q12 [facility] Last Admin: 03/11/17 21:52 Dose: 400 mls/hr Dexmedetomidine HCl (Precedex 4 Mcg/Ml (100 Ml)) 400 mcg in 100 mls @ 4.468 mls /hr IV .[id number] PRN; Protocol; 0.2 MCG/KG/HR PRN Reason: Anxiety Last Titration: 03/11/17 19:00 Dose: 0.4 mcg/kg/hr, 8.936 mls/hr Norepinephrine Bitartrate 8 mg (/ Sodium Chloride) 258 mls @ 77.4 mls/hr IV .[id number] DANICA; 40 MCG/MIN PRN Reason: Protocol Last Titration: 03/11/17 19:00 Dose: 34 mcg/min, 65.79 mls/hr Meropenem 500 mg/ Sodium (Chloride) 100 mls @ 100 mls/hr IVPB Q12 DANICA PRN Reason: Protocol Stop: 03/15/17 12:16 Last Admin: 03/11/17 21:48 Dose: 100 mls/hr Dextrose (Dextrose 10% In Water) 500 mls @ 30 mls/hr IV .[id number] DANICA Last Admin: 03/08/17 18:55 Dose: 30 mls/hr Amiodarone HCl/Dextrose (Nexterone 360 Mg In D5w 200 Ml (Premix)) 360 mg in 200 mls @ 16.667 mls/hr IV .Q12H DANICA; 0.5 MG/MIN PRN Reason: Protocol Last Admin: 03/10/17 20:08 Dose: 16.667 mls/hr Vasopressin 20 units/ Dextrose 101 mls @ 12.12 mls/hr IV .Q8H20M DANICA; 0.04 U/ MIN PRN Reason: Protocol Last Admin: 03/11/17 14:49 Dose: 12.12 mls/hr Dobutamine HCl/Dextrose (Dobutamine/Dextrose 5% 500mg/250ml) 500 mg in 250 mls @ 6.702 mls/hr IV .Q24H PRN; Protocol; 2.5 MCG/KG/MIN PRN Reason: TITRATE PER PROTOCOL Last Admin: 03/10/17 20:07 Dose: 6.702 mls/hr Lorazepam (Ativan) 2 mg IVP Q6H PRN; Protocol PRN Reason: Anxiety Last Admin: 03/09/17 01:53 Dose: 2 mg Ondansetron HCl (Zofran Inj) 4 mg IVP Q4H PRN PRN Reason: Nausea/Vomiting Pantoprazole Sodium (Protonix Inj) 40 mg IVP DAILY [facility] Last Admin: 03/11/17 10:04 Dose: 40 mg Phenytoin (Dilantin) 100 mg PO Q8 [facility] Last Admin: 03/11/17 21:51 Dose: 100 mg Verapamil HCl (Verapamil Inj) 2.5 mg IVP Q6H PRN PRN Reason: fpr herat rate >130 Last Admin: 03/11/17 11:23 Dose: 2.5 mg - Labs Labs: 03/11/17 05:30 03/11/17 12:23 PT 19.1 Seconds (9.9-11.8) H 03/11/17 12:23 INR 1.77 (0.93-1.08) H 03/11/17 12:23 APTT 33.4 Seconds (23.7-30.8) H 03/11/17 12:23 - Constitutional Appears: No Acute Distress - Eye Exam Eye Exam: absent: Scleral icterus - ENT Exam ENT Exam: Mucous Membranes Moist - Respiratory Exam Respiratory Exam: Clear to Ausculation Bilateral. absent: Rales, Rhonchi - Cardiovascular Exam Cardiovascular Exam: RRR, +S1, +S2 - GI/Abdominal Exam GI & Abdominal Exam: Soft. absent: Distended - Extremities Exam Additional comments: mild lower leg edema; - Neurological Exam Neurological Exam: absent: Alert, Awake - Skin Skin Exam: Cyanosis. absent: Normal Color Assessment and Plan (1) Acute renal failure (ARF) Assessment & Plan: Initially ATN in the setting of getting chemo with pemetrexed; however, now likely becoming multifactorial; renal function showed improvement with increased UO after starting inotropic agent and with lactic acidosis resolving; however, now again oliguric despite being able to maintain normotension with levophed/vasopressin; now with concern for sepsis with high procalcitionin in the setting of pancytopenia; Last HD yesterday; no indication for HD today; agree with giving IVF; will continue to monitor daily for HD support; Status: Acute (2) Shock Assessment & Plan: See above; BP stabilized with vasopressors; however, now concern for sepsis; agree with workup for TTP as well; lactate again elevated; trying IVF; dose abx for CrCl < 10; Status: Acute (3) Lactic acidosis Assessment & Plan: See above; increasing again; Status: Acute (4) Pulmonary HTN Assessment & Plan: With RV overload likely causing cardiogenic shock; did not respond well to UF on HD; IVF as above; Status: Acute (5) Hyperkalemia Status: Acute (6) Electrolyte disturbance Status: Acute
--- NOTE | 2017-03-12 01:09 | PN ---
SUBJECTIVE: The patient remains in intensive care unit. The patient continues to be hypotensive, on vasopressors. The patient is intubated and sedated. She developed fever since yesterday. PHYSICAL EXAMINATION: VITAL SIGNS: Temperature this morning 100, blood pressure this morning 130/79, heart rate 91. The patient is on FiO2 40%, sedated. HEENT: Head is normocephalic and atraumatic. NECK: Supple. LUNGS: With decreased breath sounds. Crackles in the base. HEART: With irregular rhythm, rate of 100 per minute. ABDOMEN: Soft, nontender, and nondistended. EXTREMITIES: Cold with no edema. LABORATORY DATA: CBC with pancytopenia with WBC 3.3, hemoglobin 9.9 and platelet count down to 19 this morning. Chemistry; normal electrolytes, persistent elevation of BUN and creatinine with BUN 57 and creatinine 2.5. Liver enzymes improved. Blood cultures and urine cultures are negative. Chest x-ray shows increase of right lower lobe infiltration. ASSESSMENT: 1. A 61-year-old female with multiorgan failure with cardiogenic shock, severe hypotension, supraventricular tachycardia, currently on vasopressors and amiodarone . 2. Fever with pneumonia, probably sepsis. 3. Acute renal failure mildly stabilized, but persistent. 4. Respiratory failure with bilateral pneumonia. 5. Severe thrombocytopenia with uncertain etiology. PLAN OF TREATMENT: Continue vasopressor for blood pressure control, trial of IV fluids as per guidance and control system engineer. Continue respiratory support. Continue broad-spectrum IV antibiotics. 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 Case was discussed with family members. The patient's prognosis is very poor. Keira Keith MD
[2017-03-12] MEDS: Dexmedetomidine HCl 4mcg/ml 400 MCG/100 ML BOTTLE IV PRN ×3 (02:46→10:26)
--- NOTE | 2017-03-12 03:59 | PN ---
DATE: 03/11/2017. LOCATION: Patient is in CCU 129, bed 5. REFERRING PHYSICIAN: Keira Keith MD. REASON FOR CONSULTATION: Lung cancer stage IIIB, status post chemoradiation, admitted to the hospital with progressive renal azotemia, acute kidney injury now with multiorgan failure, intubated, on pressors with rapid atrial fibrillation, on multiple medications to control the heart rate as well including IV dobutamine and amiodarone. Patient still remains intubated in the unit. No hemoptysis. No hematemesis. No hematuria. Very minimal secretions from the ET tube. No bleeding. The patient is unresponsive on the ventilator, sedated. PHYSICAL EXAMINATION VITAL SIGNS: T-max is 98.4, heart rate is 91, respirations 30, blood pressure is 103/62, pulse ox is 97% on vent, 40% oxygen. HEENT: Reveals moist mucous membranes. ET tube is in place with no secretions. NECK: Supple. There is no adenopathy. No jugular venous distension. LUNGS: Reveal bilateral rhonchi and crackles. HEART: S1 and S2 to be tachycardic. ABDOMEN: Soft, nondistended, protuberant. No evidence of acute abdomen. EXTREMITIES: Reveal no significant edema. NEUROLOGIC: Patient is unresponsive, on the ventilator. MEDICATIONS: Continues to be on the medications including Ativan, IV fluids of D10 at 30 mL an hour because of hypoglycemia, Dilantin 100 IV q. 8 hours, dobutamine placed on hold, Duoneb q. 6 hours, heparin 5000 units subcu q. 8 hours, Keppra 500 mg q. 12 hours, digoxin 0.25 mg three times a week, meropenem 500 mg q. 12 hours, amiodarone is on hold, Levophed and Precedex. Patient is on Protonix 40 mg daily, Solu-Cortef 100 mg q. 8 hours, Tenormin 12.5 mg twice a day, Tylenol p.r.n. Patient is on vasopressin and verapamil p.r.n. and Zofran on p.r.n. basis. LABORATORY DATA: Hemoglobin is 9.9 with hematocrit of 30, white count is 3.3, platelet count is 19 [place] [id number]. 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 Antibodies and serotonin-release assay have been requested, results are still pending. Assessment here is more consistent with platelet destruction. Order for GI series. Difficult to say whether this could be HIT pending answers from those testings that have been sent out. As the LFT is elevated and further has since decreased, which could be initial signs of an early GI CA developing. Blood cultures show pH of 7.32, PCO2 of 26, PO2 of 150. Sodium is 137, potassium is 4.5, chloride is 104, bicarbonate is 18, BUN 61, creatinine is down to 2.5, calcium is 7.5, magnesium is 2.6, AST 617[place] [address], albumin is 2.8. Chest x-ray shows right lower lobe infiltrate which is slightly increased. ASSESSMENT NOTES AND PLAN: Patient has stage IIIB non-small cell carcinoma of the lung, admitted to the hospital with seizures, progressive renal azotemia, acute kidney injury with multiorgan failure at this point in time, on multiple medications. Overall prognosis is poor. We will definitely follow the patient very carefully for the dropping platelet count and make adjustments accordingly as long as the patient is not clinically having any petechiae or any evidence of bleeding either from the ET tube or any of the IV sites, I will hold off on platelet transfusion till it reaches very close to 10,000 or less at this point in time. If the patient is febrile we will try to keep the platelet count at 20,000 or higher. We will follow the patient very carefully with you and make appropriate recommendations over the next 24 hours. Time spent for the patient is greater than 40 minutes. We will speak to the family as well and counselor marriage and family them at this point of time. Michelle Gomez MD
[2017-03-12] MEDS: Vasopressin 20 UNITS in Dextrose 5% In Water 100 ML IV SCH (06:19)
[2017-03-12 06:53] LABS: GRAN # 2.21 (1.4-6.5); GRAN % 92.1 % (50.0-68.0); HEMATOCRIT 30.2 % (36.0-48.0); LYMPH # 0.2 (1.2-3.4); LYMPH % 7.5 % (22.0-35.0); MEAN CELL VOLUME 82.7 fl (80.0-105.0); MEAN CORPUSCULAR HEMOGLOBIN 26.6 pg (25.0-35.0); MEAN CORPUSCULAR HGB CONC 32.1 g/dl (31.0-37.0); MONO % 0.4 % (1.0-6.0); RED CELL DISTRIBUTION WIDTH 17.8 % (11.5-14.5)
[2017-03-12 06:59] LABS: VENOUS BLOOD GAS BASE EXCESS -13.3 mmol/L (0.0-2.0)
[2017-03-12] MEDS: Phenytoin 100 mg/4 ml Oral Susp UD PO SCH (07:00)
[2017-03-12 07:02] LABS: INR 1.77 (0.93-1.08); PARTIAL THROMBOPLASTIN TIME 33.4 Seconds (23.7-30.8)
[2017-03-12 07:04] LABS: VENOUS BLOOD PH 7.11 (7.32-7.43)
[2017-03-12 07:06] LABS: ALB/GLOB RATIO 1.2 (1.1-1.8); CALCIUM 7.4 mg/dL (8.4-10.5); MAGNESIUM 2.3 mg/dL (1.7-2.2); PHOSPHOROUS 6.9 mg/dL (2.5-4.5); POTASSIUM 4.7 mmol/L (3.6-5.0); TOTAL PROTEIN 4.9 g/dL (5.8-8.3)
[2017-03-12 07:51] LABS: WHITE BLOOD COUNT 2.4 10^3/ul (4.5-11.0)
[2017-03-12 07:52] LABS: PLATELET COUNT 4 10^3/uL (120.0-450.0)
[2017-03-12] MEDS: Albuterol-Ipratrop 3 mg / 0.5 (3 ml) UD IH PRN (07:54)
[2017-03-12 08:03] VITALS: RESP 29; O2SAT 92
[2017-03-12] MEDS ORDERED: Amiodarone 150 mg/D5W 100 ml 150 MG/100 ML BAG IVPB ONE (08:08)
--- NOTE | 2017-03-12 08:21 | PN ---
DATE: 03/11/2017 REASON FOR CONSULTATION AND FOLLOWUP: Cardiac evaluation, status post respiratory failure; hypotension; shock; sepsis; and rule out tumor lysis syndrome. SUBJECTIVE: The patient on vent, multiple vasopressors, just tachycardia, AFib with rapid ventricular rate, on amiodarone. OBJECTIVE: Being vent. VITAL SIGNS: Temperature 100, heart rate 136, and blood pressure 92/45. HEENT: PERRLA intact. NECK: Supple. No carotid bruit or thyromegaly. CHEST: Clear to auscultation. HEART: S1 and S2 regular. ABDOMEN: Soft. EXTREMITIES: Clubbing and cyanosis negative. LABORATORY DATA: Blood workup; WBC 3.3, hemoglobin 9.9, hematocrit 30.5, and platelet count 19. Sodium , potassium 4.0, chloride 104, carbon dioxide 20, anion gap of 15, BUN 57, and creatinine 2.5. IMPRESSION: Status post multiorgan dysfunction, acute liver injury, acute kidney injury possibly secondary to chemotherapy, tumor lysis syndrome, hyperkalemia, respiratory failure, history of paroxysmal atrial fibrillation, history of lung cancer, history of right coronary artery stent in July, tachycardia, atrial fibrillation, hypotension, and sepsis with septic shock on Levophed. RECOMMENDATIONS: Continue antiseizure medication. Continue amiodarone. Avoid amiodarone because of the liver dysfunction. We will start metoprolol. Monitor liver function closely. We will put verapamil. Overall, the patient's condition is critical. Prognosis guarded. The patient is on Dobutrex. discontinue Dobutrex. We will follow with you. Last is 0.8. We will give 1 dose of digoxin. We will discontinue AST and ALT. We will also discontinue Dobutrex because of tachycardia. Serenity Maguire MD
[2017-03-12 08:43] LABS: NEUTROPHIL 93 % (50.0-70.0)
[2017-03-12 08:44] LABS: ANISOCYTOSIS 2+; HYPOCHROMIA 1+; PLATELET ESTIMATE LOW (NORMAL); POIKILOCYTOSIS 1+
[2017-03-12 08:45] LABS: BURR CELLS 1+; MICROCYTOSIS 1+; TEAR DROP CELLS SLIGHT
[2017-03-12] MEDS ORDERED: Digoxin 500 mcg/2ml (0.5 mg/2ml) Inj IVP ONE (09:00)
[2017-03-12] MEDS ORDERED: Metoprolol 1 mg/ml Inj IVP SCH (09:15)
--- NOTE | 2017-03-12 10:11 | CP.PCM.PN ---
Subjective - Date & Time of Evaluation Date of Evaluation: 03/12/17 Time of Evaluation: 09:00 - Subjective Subjective: Unresponsive, intubated,underlying agonal respirations, hypotensive despite dual vasopressor suppor. Objective - Vital Signs/Intake and Output Vital Signs (last 24 hours): Temp Pulse Resp BP Pulse Ox 96.6 F L 130 H 29 H 92/59 L 92 L 03/12/17 04:00 03/12/17 04:30 03/12/17 08:03 03/12/17 06:19 03/12/17 08:03 Intake and Output: 03/12/17 03/12/17 06:59 18:59 Intake Total 1759 100 Output Total 550 Balance 1209 100 - Medications Medications: Current Medications Acetaminophen (Tylenol 650mg/20.3ml Solution Ud) 650 mg GT Q4H PRN PRN Reason: Fever >100.4 F Last Admin: 03/11/17 04:49 Dose: 650 mg Albuterol/Ipratropium (Duoneb 3 Mg/0.5 Mg (3 Ml) Ud) 3 ml IH Q2H PRN PRN Reason: Shortness of Breath Last Admin: 03/12/17 07:54 Dose: 3 ml Chlorhexidine Gluconate (Peridex) 15 ml PO Q4 DANICA Last Admin: 03/11/17 21:47 Dose: 1 applic Digoxin (Lanoxin) 0.125 mg PO MWF DANICA Last Admin: 03/07/17 09:43 Dose: 0.125 mg Heparin Sodium (Porcine) (Heparin) 5,000 units SC Q8 DANICA PRN Reason: Protocol Last Admin: 03/10/17 05:52 Dose: 5,000 units Hydrocortisone Sodium Succinate (Solu-Cortef) 100 mg IVP Q8 DANICA Last Admin: 03/12/17 07:00 Dose: 100 mg Levetiracetam (Keppra 500mg Ivpb) 500 mg in 100 mls @ 400 mls/hr IVPB Q12 DANICA Last Admin: 03/11/17 21:52 Dose: 400 mls/hr Dexmedetomidine HCl (Precedex 4 Mcg/Ml (100 Ml)) 400 mcg in 100 mls @ 4.468 mls /hr IV .[id number] PRN; Protocol; 0.2 MCG/KG/HR PRN Reason: Anxiety Last Admin: 03/12/17 07:57 Dose: 0.89 mcg/kg/hr, 20 mls/hr Norepinephrine Bitartrate 8 mg (/ Sodium Chloride) 258 mls @ 77.4 mls/hr IV .Q3H20M DANICA; 40 MCG/MIN PRN Reason: Protocol Last Admin: 03/12/17 02:48 Dose: 34 mcg/min, 65.79 mls/hr Meropenem 500 mg/ Sodium (Chloride) 100 mls @ 100 mls/hr IVPB Q12 DANICA PRN Reason: Protocol Stop: 03/15/17 12:16 Last Admin: 03/11/17 21:48 Dose: 100 mls/hr Dextrose (Dextrose 10% In Water) 500 mls @ 30 mls/hr IV .[id number] DANICA Last Admin: 03/08/17 18:55 Dose: 30 mls/hr Amiodarone HCl/Dextrose (Nexterone 360 Mg In D5w 200 Ml (Premix)) 360 mg in 200 mls @ 16.667 mls/hr IV .Q12H DANICA; 0.5 MG/MIN PRN Reason: Protocol Last Admin: 03/10/17 20:08 Dose: 16.667 mls/hr Lorazepam (Ativan) 2 mg IVP Q6H PRN; Protocol PRN Reason: Anxiety Last Admin: 03/09/17 01:53 Dose: 2 mg Metoprolol Tartrate (Lopressor) 5 mg IVP Q6H DANICA Ondansetron HCl (Zofran Inj) 4 mg IVP Q4H PRN PRN Reason: Nausea/Vomiting Pantoprazole Sodium (Protonix Inj) 40 mg IVP DAILY DANICA Last Admin: 03/11/17 10:04 Dose: 40 mg Phenytoin (Dilantin) 100 mg PO Q8 DANICA Last Admin: 03/12/17 07:00 Dose: 100 mg Verapamil HCl (Verapamil Inj) 2.5 mg IVP Q6H PRN PRN Reason: for heart rate>130 - Labs Labs: 03/12/17 06:46 03/12/17 06:46 PT 19.1 Seconds (9.9-11.8) H 03/12/17 06:46 INR 1.77 (0.93-1.08) H 03/12/17 06:46 APTT 33.4 Seconds (23.7-30.8) H 03/12/17 06:46 - Constitutional Appears: Chronically Ill - Eye Exam Eye Exam: Normal appearance - ENT Exam ENT Exam: Mucous Membranes Moist - Respiratory Exam Respiratory Exam: Decreased Breath Sounds - Cardiovascular Exam Cardiovascular Exam: Irregular Rhythm - GI/Abdominal Exam GI & Abdominal Exam: Diminished Bowel Sounds - Exam Additional comments: oliguric - Extremities Exam Additional comments: lower extremities mottled - Skin Skin Exam: Dry, Pallor Assessment and Plan - Assessment and Plan (Free Text) Assessment: 61 year old female with history of cardiomyopathy, pulmonary hypertension, Stage IIIB lung cancer admitted with sepsis, multi organ failure. Intubated with underlying agonal breathing, hypotensive on max vasopressors, lower extremities mottled. Family at bedside. Dr. Soni and I explained patients deteriorating medical condition. Questions answered. Family aware that patient is not likely to survive. Offered option for comfort care. Psychosocial support given. Family decided to transition to comfort care. Family agrees to withdrawal of all life prolonging treatments. End of life counseling provided Psychosocial support given. Dr Singh notified of families decision for terminal extubation Time spent with family in goals of care discussion, end of life counseling, 40 minutes. Plan: Terminal extubation End of life counseling
[2017-03-12] MEDS: levETIRAcetam 500mg IVPB 500 MG/100 ML BAG IVPB SCH (10:29)
[2017-03-12] MEDS: Chlorhexidine 0.12% Oral Sol 480 ml Bot PO SCH (10:30)
[2017-03-12] MEDS: Meropenem 500 MG in Sodium Chloride 0.9% 100 ML IVPB SCH (10:30)
[2017-03-12 12:04] VITALS: TEMP 97.4
[2017-03-12 12:27] VITALS: BP 61/44
[2017-03-12] MEDS ORDERED: Morphine 2 mg/ml ISec IVP STA (12:29)
[2017-03-12] MEDS ORDERED: Morphine 2 mg/ml ISec IVP PRN (12:30)
--- NOTE | 2017-03-12 13:07 | CP.PCM.PRO ---
Pronouncement of Note - Clinical Findings Physical Exam: No Response Verbal/Painful Stimuli, Absent Peripheral Pulses{ Carotid & Femoral}, Absent Heart & Breath Sounds, No Pupillary Light Reflex, Pupils Fixed & Dilated, Absence of Vital Signs - Pronouncement Time Time of Pronouncement of : 12:58 - Notifications Pronouncement Notifications: Family Notified (at bedside), Atending Notified Comic Writer Notified: No - Autopsy Autopsy Requested: No - [place] [id number]
[2017-03-12 13:26] VITALS: PULSE 0
--- NOTE | 2017-03-12 13:33 | CP.PCM.PN ---
Subjective - Date & Time of Evaluation Date of Evaluation: 03/12/17 Time of Evaluation: 09:00 - Subjective Subjective: Overnight patient remained more hypotensive and unstable on vasopressors. Remains intubated and lightly sedated. Family meeting continued and updates were given for which they have decided to transition to comfort care measures. Objective - Vital Signs/Intake and Output Vital Signs (last 24 hours): Temp Pulse Resp BP Pulse Ox 97.4 F L 0 L 29 H 61/44 L 92 L 03/12/17 12:00 03/12/17 12:58 03/12/17 08:03 03/12/17 12:26 03/12/17 08:03 Intake and Output: 03/12/17 03/12/17 06:59 18:59 Intake Total 2016 200 Output Total 550 Balance 1467 200 - Medications Medications: Current Medications Acetaminophen (Tylenol 650mg/20.3ml Solution Ud) 650 mg GT Q4H PRN PRN Reason: Fever >100.4 F Last Admin: 03/11/17 04:49 Dose: 650 mg Lorazepam (Ativan) 2 mg IVP Q6H PRN; Protocol PRN Reason: Anxiety Last Admin: 03/09/17 01:53 Dose: 2 mg Morphine Sulfate (Morphine) 2 mg IVP Q2H PRN PRN Reason: dyspnea - Labs Labs: 03/12/17 06:46 03/12/17 06:46 PT 19.1 Seconds (9.9-11.8) H 03/12/17 06:46 INR 1.77 (0.93-1.08) H 03/12/17 06:46 APTT 33.4 Seconds (23.7-30.8) H 03/12/17 06:46 - Constitutional Appears: In Acute Distress, Unkempt - Eye Exam Pupil Exam: PERRL - Respiratory Exam Respiratory Exam: Accessory Muscle Use, Rhonchi - Cardiovascular Exam Cardiovascular Exam: Tachycardia, Irregular Rhythm - Neurological Exam Neurological Exam: absent: Abnormal Gait, Alert, Altered, Awake, CN II-XII Intact, Motor Sensory Deficit, Normal Gait, Oriented x3, Reflexes Normal Assessment and Plan - Assessment and Plan (Free Text) Assessment: 61 y/o F w/ septic/ cardiogenic shock in the setting of advanced Lung ca. Intubated x 6 days without any improvement in mental status and hypotension. Zhang spectrum abx were given. HD was started with temp improvement in PH and electrolytes. RV function was poor in the setting of shock without response to vasopressors. Family at bedside with palliative care and understood the poor prognosis. Pt's daughter made the decision to make her mother Comfort Care cc time 45 min
[2017-03-12 13:50] LABS: HEPARIN-IND PLATELET AB Negative (Negative); RESULT Negative (Negative)
--- NOTE | 2017-03-12 14:01 | RAD ---
HISTORY: intubated, f/u COMPARISON: 03/11/2017 FINDINGS: LUNGS: Minimal patchy infiltrate at the right lung base PLEURA: No significant pleural effusion identified, no pneumothorax apparent. CARDIOVASCULAR: Normal. OSSEOUS STRUCTURES: No significant abnormalities. VISUALIZED UPPER ABDOMEN: Normal. OTHER FINDINGS: Central lines and tubes are unchanged IMPRESSION: Minimal patchy infiltrate at the right lung base. No significant change
--- NOTE | 2017-03-12 17:24 | PN ---
DATE: 03/12/2017 SUBJECTIVE: The patient is in bed in, no changes. The patient continues to deteriorate. The patient was seen early this morning, is in poor condition, remains intubated on a ventilator, unresponsive. OBJECTIVE: VITAL SIGNS: Temperature of 97, blood pressure 60/40, respiratory rate on a vent, heart rate of 70. HEENT: Examination is unremarkable. NECK: Supple. LUNGS: Decreased breath sounds. HEART: Exam normal S1, S2. ABDOMEN: Examination is soft. LABORATORY EXAMINATION: Noted. Microbiology is reviewed. The patient as of this morning had agonal breathing. ASSESSMENT AND PLAN: A 61-year-old female, who was seen early this morning in the ICU with severe sepsis and septic shock and cardiogenic shock, left lower lobe healthcare-associate pneumonia with agonal breathing this morning and overall prognosis quite poor for this patient who is end stage. Delvis Tinsley MD
[2017-03-12 18:17] LABS: UFH SRA RESULT Negative (Negative)
--- NOTE | 2017-03-12 20:16 | CP.PCM.PN ---
Subjective - Date & Time of Evaluation Date of Evaluation: 03/12/17 Time of Evaluation: 10:00 - Subjective Subjective: Patient seen this morning; not alert, intubated; Objective - Vital Signs/Intake and Output Vital Signs (last 24 hours): Temp Pulse Resp BP Pulse Ox 97.4 F L 0 L 29 H 61/44 L 92 L 03/12/17 12:00 03/12/17 12:58 03/12/17 08:03 03/12/17 12:26 03/12/17 08:03 Intake and Output: 03/12/17 03/13/17 18:59 06:59 Intake Total 200 Balance 200 - Labs Labs: 03/12/17 06:46 03/12/17 06:46 PT 19.1 Seconds (9.9-11.8) H 03/12/17 06:46 INR 1.77 (0.93-1.08) H 03/12/17 06:46 APTT 33.4 Seconds (23.7-30.8) H 03/12/17 06:46 - ENT Exam ENT Exam: Mucous Membranes Moist - Respiratory Exam Respiratory Exam: absent: Rales, Rhonchi - Cardiovascular Exam Cardiovascular Exam: REGULAR RHYTHM, +S1, +S2 - GI/Abdominal Exam GI & Abdominal Exam: Soft. absent: Distended - Extremities Exam Additional comments: mild leg edema; - Neurological Exam Neurological Exam: absent: Alert, Awake - Skin Skin Exam: absent: Normal Color, Warm Assessment and Plan (1) Acute renal failure (ARF) Assessment & Plan: ATN due to chemo, led to decompensation of R heart failure and cardiogenic shock which had improved with inotropic support; however, patient again very hypotensive today despite being on max levophed and vasopressin; possibly superimposed sepsis as well with procalcitonin that increased substantially and with progressive pancytopenia; also, worsening of mental status despite stopping sedation; Family's decision to opt for comfort care was very reasonable given multiple co- morbidities and progressively worsening condition; Status: Acute (2) Shock Status: Acute (3) Lactic acidosis Status: Acute (4) Pulmonary HTN Status: Acute (5) Hyperkalemia Status: Acute (6) Electrolyte disturbance Status: Acute
--- NOTE | 2017-03-13 08:13 | PN ---
REASON FOR CONSULTATION: Cardiac eval, status post respiratory failure, hypotension, shock, sepsis ruled out, tumor lysis syndrome, multiorgan dysfunction. SUBJECTIVE: The patient on multiple vasopressors, tachycardic, AFib with rapid ventricular rate. Family is at the bedside. OBJECTIVE: GENERAL: Bucking the vent, tachycardic, multiple vasopressors. VITAL SIGNS: Temperature is afebrile, heart rate 130, blood pressure 60/40, respiratory rate 40. HEENT: PERRLA, intact. NECK: Supple. No carotid bruit or thyromegaly. CHEST: Clear to auscultation. HEART: S1 and S2 regular. ABDOMEN: Soft. EXTREMITIES: Clubbing and cyanosis negative. LABORATORY DATA: WBC 2.4, hemoglobin 9.3, hemoglobin 30.2, platelet count . Chemistry shows sodium 130, potassium 4.0, chloride 108, carbon dioxide 18, anion gap of 18, BUN 69, creatinine 2.5, AST 408, and ALT 1235. IMPRESSION: Shock; multiorgan dysfunction; acute renal failure; acute kidney injury; acute liver failure; previous thrombocytopenia; pancytopenia; possible tumor lysis syndrome; atrial fibrillation with rapid ventricular rate; respiratory failure; history of coronary artery disease, status post percutaneous transluminal coronary angioplasty; history of peripheral arterial disease; history of lung carcinoma, inoperable, status post chemotherapy. RECOMMENDATIONS: Not a candidate for anticoagulation, severe thrombocytopenia as well as acute liver failure. Amiodarone is discontinued because of the liver failure, and we will give verapamil, suggest 2.5 p.r.n. to control the heart rate. Continue Lopressor . We will give extra dose of digoxin today to control the heart rate. Overall, the patient's condition is critical. Long-term prognosis is extremely guarded. We will not use amiodarone because of possible liver toxicity. Thank you for providing the opportunity in taking care of the patient. Serenity Maguire MD
== END 2017-03-12 12:58 | DRG 870 ==
LOC: ED 09:29 → ERH 11:42 → CCU 14:28
PROVIDERS: ADMIT Family Medicine; ATTEND Family Medicine
PROC: 5A09357 Assistance with Respiratory Ventilation, Less than 24 Consecutive Hours, Continuous Positive Airway Pressure (ICD-10-PCS; 2017-03-06)
PROC: 5A1955Z Respiratory Ventilation, Greater than 96 Consecutive Hours (ICD-10-PCS; principal; 2017-03-07)
PROC: 0BH17EZ Insertion of Endotracheal Airway into Trachea, Via Natural or Artificial Opening (ICD-10-PCS; 2017-03-07)
PROC: 3E0F7GC Introduction of Other Therapeutic Substance into Respiratory Tract, Via Natural or Artificial Opening (ICD-10-PCS; 2017-03-07)
PROC: 03HY33Z Insertion of Infusion Device into Upper Artery, Percutaneous Approach (ICD-10-PCS; 2017-03-07)
PROC: 5A1D70Z Performance of Urinary Filtration, Intermittent, Less than 6 Hours Per Day (ICD-10-PCS; 2017-03-08)
DX: A41.9 Sepsis, unspecified organism (principal); N17.0 Acute kidney failure with tubular necrosis; J96.01 Acute respiratory failure with hypoxia; J18.9 Pneumonia, unspecified organism; K72.00 Acute and subacute hepatic failure without coma; D61.818 Other pancytopenia; R65.21 Severe sepsis with septic shock; R57.0 Cardiogenic shock; I13.2 Hypertensive heart and chronic kidney disease with heart failure and with stage 5 chronic kidney disease, or end stage renal disease; N18.6 End stage renal disease; E87.4 Mixed disorder of acid-base balance; C34.92 Malignant neoplasm of unspecified part of left bronchus or lung; J44.0 Chronic obstructive pulmonary disease with (acute) lower respiratory infection; J44.1 Chronic obstructive pulmonary disease with (acute) exacerbation; I48.92 Unspecified atrial flutter; I47.1 Supraventricular tachycardia; I42.0 Dilated cardiomyopathy; Z99.11 Dependence on respirator [ventilator] status; I08.1 Rheumatic disorders of both mitral and tricuspid valves; E83.51 Hypocalcemia; Z99.81 Dependence on supplemental oxygen; I27.29 Other secondary pulmonary hypertension; I50.810 Right heart failure, unspecified; I48.0 Paroxysmal atrial fibrillation; E87.5 Hyperkalemia; I25.10 Atherosclerotic heart disease of native coronary artery without angina pectoris; T45.1X5A Adverse effect of antineoplastic and immunosuppressive drugs, initial encounter; E78.5 Hyperlipidemia, unspecified; Z66 Do not resuscitate; G47.33 Obstructive sleep apnea (adult) (pediatric); G40.909 Epilepsy, unspecified, not intractable, without status epilepticus; I73.9 Peripheral vascular disease, unspecified; I48.2 Chronic atrial fibrillation; Y95 Nosocomial condition; Z51.5 Encounter for palliative care; E66.9 Obesity, unspecified; Z68.33 Body mass index [BMI] 33.0-33.9, adult; Z86.011 Personal history of benign neoplasm of the brain; Z85.42 Personal history of malignant neoplasm of other parts of uterus; Z95.5 Presence of coronary angioplasty implant and graft; Z90.710 Acquired absence of both cervix and uterus; Z90.49 Acquired absence of other specified parts of digestive tract; Z87.891 Personal history of nicotine dependence